=== PATIENT | female | born 1950 | race Caucasian/White ===

== ENCOUNTER 2022-11-12 12:14 | Outpatient (REF) | payer MEDICARE, MEDICAID, SELFPAY ==
[2022-11-12 14:35] LABS: Alanine Aminotransferase 23 U/L (14-59); Albumin Globulin Ratio 0.9; Albumin Level 3.6 g/dL (3.4-5.0); Alkaline Phosphatase 48 U/L (46-116); Anion Gap 13.2; Aspartate Amino Transferase 19 U/L (15-37); BUN Creatinine Ratio 16.7; Bilirubin Total 0.9 mg/dL (0.2-1.0); Calcium 9.5 mg/dL (8.5-10.1); Carbon Dioxide 29.5 mmol/L (21.0-32.0); Chloride 103 mmol/L (98-107); Estimated GFR (African America 24 (>=60); Estimated GFR (Non-African Ame 20 (>=60); Globulin 3.8 g/dL; Glucose 150 mg/dL (74-106); Potassium 4.7 mmol/L (3.5-5.1); Sodium 141 mmol/L (136-145); Total Protein 7.4 g/dL (6.4-8.2)
[2022-11-12 16:40] LABS: Estimated Average Glucose 163 mg/dL; Glycohemoglobin A1C 7.3 % (4.5-6.2)
== END 2022-11-12 12:15 | disposition home or self-care (01) ==
LOC: LAB 12:14
PROVIDERS: PCP Nurse Practitioner Primary Care; Visit Provider Nurse Practitioner Primary Care
DX: E11.9 Type 2 diabetes mellitus without complications (principal)
CPT/HCPCS: 36415; 80053; 83036

== ENCOUNTER 2022-11-28 01:52 | Outpatient (REF) | payer MEDICARE, MEDICAID, SELFPAY ==
[2022-11-28 10:29] LABS: Alanine Aminotransferase 22 U/L (14-59); Albumin Globulin Ratio 0.9; Albumin Level 3.2 g/dL (3.4-5.0); Alkaline Phosphatase 55 U/L (46-116); Anion Gap 5.9; Aspartate Amino Transferase 15 U/L (15-37); BUN Creatinine Ratio 16.9; Bilirubin Total 0.7 mg/dL (0.2-1.0); Calcium 9.2 mg/dL (8.5-10.1); Carbon Dioxide 34.5 mmol/L (21.0-32.0); Chloride 102 mmol/L (98-107); Estimated GFR (African America 34 (>=60); Estimated GFR (Non-African Ame 28 (>=60); Globulin 3.7 g/dL; Glucose 205 mg/dL (74-106); Potassium 4.4 mmol/L (3.5-5.1); Sodium 138 mmol/L (136-145); Total Protein 6.9 g/dL (6.4-8.2)
[2022-11-29 04:07] LABS: HBsAg Screen Negative (Negative); HCV Ab Non Reactive (Non Reactive); HIV Ab/p24 Ag Screen Non Reactive (Non Reactive); Hep A Ab, IgM Negative (Negative); Hep B Core Ab, IgM Negative (Negative)
== END 2022-11-28 01:53 | disposition home or self-care (01) ==
LOC: LAB 01:52
PROVIDERS: PCP Nurse Practitioner Primary Care; Visit Provider Nurse Practitioner Primary Care
DX: Z11.59 Encounter for screening for other viral diseases (principal); Z11.4 Encounter for screening for human immunodeficiency virus [HIV]; N18.30 Chronic kidney disease, stage 3 unspecified
CPT/HCPCS: 36415; 80053; 80074; 87389

== ENCOUNTER 2023-01-09 08:46 | Outpatient (OUT) | payer MEDICARE, MEDICAID, SELFPAY ==
--- NOTE | 2023-01-09 08:49 | US_ITS ---
The [address] [address] Patient Name: AVILA VALENZUELA MRN: [id number] date: 1950 Sex: F Assigned Patient Location: Current Patient Location: US Accession/Order Number: [id number] Exam Date: 01/09/2023 08:50 Report Date: 01/09/2023 17:47 At the request of: AFIA PERRY Procedure: US renal BI EXAMINATION: US renal BI HISTORY: Chronic Kidney Disease N18.4 COMPARISON: No relevant comparison available. TECHNIQUE: Ultrasound examination was performed of the bladder. FINDINGS: Right Kidney: Normal in size, contour and cortical echotexture with no solid cortical mass, hydronephrosis or obstructing nephrolithiasis. Areas of anechoic echogenicity measuring up to 1 cm, cortical cyst. The cortex measures 1.2 cm Height: 3.3 cm Length: 10.3 cm Width: 4.0 cm Left Kidney: Normal in size, contour and cortical echotexture with no solid cortical mass, hydronephrosis or obstructing nephrolithiasis. The cortex measures 1.5 cm area of anechoic echogenicity upper pole measuring 1 cm, simple cyst Height: 4.8 cm Length: 9.2 cm Width: 3.0 cm Urinary bladder is unremarkable with a volume of 62 mL The ureteral jets are not visualized US/US renal BI IMPRESSION: No acute abnormality Electronically authenticated by: TWYLA CONTEH Date: 01/09/2023 17:47
== END 2023-01-09 08:47 | disposition home or self-care (01) ==
LOC: US 08:46
PROVIDERS: PCP Nurse Practitioner Primary Care; Visit Provider Internal Medicine
DX: I12.9 Hypertensive chronic kidney disease with stage 1 through stage 4 chronic kidney disease, or unspecified chronic kidney disease (principal); N18.4 Chronic kidney disease, stage 4 (severe); E11.22 Type 2 diabetes mellitus with diabetic chronic kidney disease; N25.81 Secondary hyperparathyroidism of renal origin; D63.1 Anemia in chronic kidney disease
CPT/HCPCS: 76775

== ENCOUNTER 2023-02-18 01:09 | Outpatient (REF) | payer MEDICARE, MEDICAID, SELFPAY ==
[2023-02-18 09:26] LABS: Basophils Percent Auto 0.4 % (0.2-2.0); Eosinophils Absolute Auto 0.2 10^3/uL (0.0-0.7); Eosinophils Percent Auto 2.8 % (0.9-7.0); Hematocrit 30.8 % (36.0-48.0); Hemoglobin 9.9 g/dL (12.0-16.0); Immature Granulocytes Abs Auto 0.02 10^3/uL (0.00-0.03); Immature Granulocytes Pct Auto 0.3 % (0.0-0.5); Lymphocytes Percent Auto 25.2 % (20.5-60.0); Mean Corpuscular HGB Conc 32.1 g/dL (29.9-35.2); Mean Corpuscular Hemoglobin 30.4 pg (26.7-34.0); Mean Corpuscular Volume 94.5 fL (81.0-99.0); Mean Platelet Volume 11.4 fL (9.5-13.5); Monocytes Absolute Auto 0.7 10^3/uL (0.3-0.8); Monocytes Percent Auto 9.3 % (1.7-12.0); Neutrophils Absolute Auto 4.9 10^3/uL (1.4-6.5); Platelet Count 252 10^3/uL (150-450); Red Blood Count 3.26 10^6/uL (4.20-5.40); Red Cell Distribution Width 12.3 % (11.0-15.0); White Blood Count 7.9 10^3/uL (4.0-11.0)
[2023-02-18 10:25] LABS: Albumin Level 3.5 g/dL (3.4-5.0); Anion Gap 12.5; BUN Creatinine Ratio 29.3; Calcium 9.1 mg/dL (8.5-10.1); Chloride 104 mmol/L (98-107); Estimated GFR (African America 27 (>=60); Estimated GFR (Non-African Ame 22 (>=60); Glucose 129 mg/dL (74-106); Phosphorus 5.4 mg/dL (2.6-4.7); Potassium 4.5 mmol/L (3.5-5.1); Sodium 141 mmol/L (136-145); Uric Acid 8.4 mg/dL (2.6-6.0)
[2023-02-18 10:37] LABS: Creatinine Urine Random 70.68 mg/dL (20.00-300.00); Protein Creatinine Ratio Urine 0.11
[2023-02-18 10:41] LABS: Percent Iron Saturation 21.6 %
[2023-02-18 11:17] LABS: Bilirubin Urine NEGATIVE (NEGATIVE); Blood Urine NEGATIVE (NEGATIVE); Clarity Urine CLEAR (CLEAR); Color Urine LT. YELLOW (YELLOW); Glucose Urine UA NEGATIVE (NEGATIVE); Ketones Urine NEGATIVE (NEGATIVE); Leukocyte Esterase Urine NEGATIVE (NEGATIVE); Nitrite Urine NEGATIVE (NEGATIVE); Protein Urine NEGATIVE (NEG/TRACE); Urobilinogen Urine 0.2 EU/dL (0.2-1.0)
[2023-02-18 11:26] LABS: Bacteria Urine NONE SEEN #/HPF (NONE SEEN); Mucus Urine NONE SEEN (NONE SEEN); RBC Urine NONE SEEN #/HPF (0-2); Squamous Epithelial Cell Urine FEW #/LPF (NONE/RARE); WBC Urine NONE SEEN #/HPF (NONE SEEN)
[2023-02-19 11:09] LABS: PTH, Intact 56 pg/mL (15-65)
[2023-02-19 14:10] LABS: Free Lambda Lt Chains,S 35.2 mg/L (5.7-26.3); Immunoglobulin A, Qn, Serum 258 mg/dL (64-422); Immunoglobulin G, Qn, Serum 1086 mg/dL (586-1602); Immunoglobulin M, Qn, Serum 52 mg/dL (26-217)
[2023-02-19 16:09] LABS: Albumin 3.3 g/dL (2.9-4.4); Alpha-1-Globulin 0.2 g/dL (0.0-0.4); Gamma Globulin 1.1 g/dL (0.4-1.8); Protein, Total 6.5 g/dL (6.0-8.5)
== END 2023-02-18 01:10 | disposition home or self-care (01) ==
LOC: LAB 01:09
PROVIDERS: PCP Nurse Practitioner Primary Care; Visit Provider Internal Medicine
DX: E11.22 Type 2 diabetes mellitus with diabetic chronic kidney disease (principal); N18.4 Chronic kidney disease, stage 4 (severe); I12.9 Hypertensive chronic kidney disease with stage 1 through stage 4 chronic kidney disease, or unspecified chronic kidney disease; N25.81 Secondary hyperparathyroidism of renal origin; D63.1 Anemia in chronic kidney disease
CPT/HCPCS: 36415; 80053; 80069; 81001; 82306; 82570; 82607; 82728; 82746; 82784; 83036; 83521; 83540; 83550; 83735; 83970; 84155; 84156; 84165; 84166; 84550; 85025; 86334; 86335

== ENCOUNTER 2023-02-18 01:14 | Outpatient (REF) | payer MEDICARE, MEDICAID, SELFPAY ==
[2023-02-18 10:08] LABS: Estimated Average Glucose 143 mg/dL; Glycohemoglobin A1C 6.6 % (4.5-6.2)
[2023-02-18 10:09] LABS: Alanine Aminotransferase 16 U/L (14-59); Albumin Level 3.5 g/dL (3.4-5.0); Alkaline Phosphatase 58 U/L (46-116); Anion Gap 12.8; Aspartate Amino Transferase 18 U/L (15-37); BUN Creatinine Ratio 29.4; Bilirubin Total 0.6 mg/dL (0.2-1.0); Calcium 9.2 mg/dL (8.5-10.1); Carbon Dioxide 28.9 mmol/L (21.0-32.0); Chloride 102 mmol/L (98-107); Estimated GFR (African America 27 (>=60); Estimated GFR (Non-African Ame 23 (>=60); Globulin 3.6 g/dL; Glucose 131 mg/dL (74-106); Potassium 4.7 mmol/L (3.5-5.1); Sodium 139 mmol/L (136-145); Total Protein 7.1 g/dL (6.4-8.2)
== END 2023-02-18 01:15 | disposition home or self-care (01) ==
LOC: LAB 01:14
PROVIDERS: PCP Nurse Practitioner Primary Care; Visit Provider Nurse Practitioner Primary Care
DX: E11.9 Type 2 diabetes mellitus without complications (principal)
CPT/HCPCS: 36415; 80053; 83036

== ENCOUNTER 2023-02-19 13:15 | Outpatient (REF) | payer MEDICARE, MEDICAID, SELFPAY ==
[2023-02-24 15:09] LABS: Albumin, U 14.8 % (.); Alpha-1-Globulin, U 4.3 % (.); Alpha-2-Globulin, U 18.3 % (.); Beta Globulin, U 32.5 % (.); M-Spike, % Not Observed % (Not Observed); Protein,Total,Urine 6.8 mg/dL (Not Estab.)
== END 2023-02-19 13:16 | disposition home or self-care (01) ==
LOC: LAB 13:15
PROVIDERS: PCP Nurse Practitioner Primary Care; Visit Provider Internal Medicine
DX: E11.22 Type 2 diabetes mellitus with diabetic chronic kidney disease (principal); I12.9 Hypertensive chronic kidney disease with stage 1 through stage 4 chronic kidney disease, or unspecified chronic kidney disease; N18.4 Chronic kidney disease, stage 4 (severe); N25.81 Secondary hyperparathyroidism of renal origin; D63.1 Anemia in chronic kidney disease
CPT/HCPCS: 84156; 84166; 86335

== ENCOUNTER 2023-03-04 09:11 | Outpatient (OUT) | payer MEDICARE, MEDICAID, SELFPAY ==
--- NOTE | 2023-03-04 09:22 | MM_ITS ---
Patient Name AVILA VALENZUELA MR# Age Sex Date Time [id number] F 03/04/2023 09:40 At the Request Of DARRION ARMSTRONG RADIOLOGY REPORT PROCEDURE: MM TOMOSYNTHESIS SCREENING BI COMPARISON: MG MAMM SCREEN 3D BARBARA CAD, 06/03/2021. MG MAMM BARBARA DIAG W CAD, 04/11/2020. MG MAMM SCREEN BARBARA W CAD, 03/07/2019. INDICATIONS: Screening Calculator Name NCI Breast Cancer Risk Assessment Tool 5 Year Breast Cancer Risk 1.20% Lifetime Breast Cancer Risk 2.70% Personal Breast Cancer No Personal Ovarian Cancer No Treatments None Family Cancers Grandmother-paternal with breast cancer at age 50. LOCATION: [facility] BREAST COMPOSITION: Heterogeneously dense,which may obscure small masses. FINDINGS: DIAGNOSTIC CATEGORY 2--BENIGN FINDING: Scattered benign-appearing calcifications are present. Scattered benign-appearing lymph nodes are present. No significant change has occurred. LEFT BREAST: No significant suspicious finding. Scattered benign-appearing calcifications are present. Scattered benign-appearing lymph nodes are present. No significant change has occurred. RECOMMENDATIONS: ROUTINE MAMMOGRAM AND CLINICAL EVALUATION IN 12 MONTHS. PLEASE NOTE: A NORMAL MAMMOGRAM DOES NOT EXCLUDE THE POSSIBILITY OF BREAST CANCER. A CLINICALLY SUSPICIOUS PALPABLE LUMP SHOULD BE BIOPSIED. Dictated by: Savage Stephens M.D. on 03/04/2023 at 12:43 Approved by: Savage Stephens M.D. on 03/04/2023 at 13:14
== END 2023-03-04 09:12 | disposition home or self-care (01) ==
LOC: MAMMO 09:12
PROVIDERS: PCP Nurse Practitioner Primary Care; Visit Provider Nurse Practitioner Primary Care
DX: Z12.31 Encounter for screening mammogram for malignant neoplasm of breast (principal); Z80.3 Family history of malignant neoplasm of breast
CPT/HCPCS: 77063; 77067

== ENCOUNTER 2023-03-18 09:57 | Outpatient (OUT) | payer MEDICARE, MEDICAID, SELFPAY ==
--- NOTE | 2023-03-18 | XR_ITS ---
The [address] [address] Patient Name: AVILA VALENZUELA MRN: [id number] date: 1950 Sex: F Assigned Patient Location: [facility] Current Patient Location: Accession/Order Number: [id number] Exam Date: 03/18/2023 10:40 Report Date: 03/20/2023 08:14 At the request of: EMMANUELLE PATE Procedure: XR foot LT min 3V PROCEDURE: XR foot LT min 3V HISTORY: LEFT FOOT PAIN COMPARISON: XR foot left 08/01/2021 FINDINGS: BONES:Acute nondisplaced fracture involving base of third proximal phalanx with intra-articular extension. Stable remote fracture of base of 5th proximal phalanx. Prior mechanical fusion of the talocalcaneal joint, degenerative changes, and complete loss of plantar arch. SOFT TISSUES:No visible soft tissue swelling. EFFUSION:None visible. OTHER: Negative. XR/XR foot LT min 3V IMPRESSION: 1. Acute versus subacute nondisplaced fracture involving base of third proximal phalanx. 2. Stable chronic changes and surgical changes. Electronically authenticated by: ROGER ABARCA Date: 03/20/2023 08:14
== END 2023-03-18 09:58 | disposition home or self-care (01) ==
LOC: RAD 09:59
PROVIDERS: PCP Nurse Practitioner Primary Care; Visit Provider Podiatrist Foot & Ankle Surgery
DX: M79.672 Pain in left foot (principal); S92.515A Nondisplaced fracture of proximal phalanx of left lesser toe(s), initial encounter for closed fracture
CPT/HCPCS: 73630

== ENCOUNTER 2023-03-31 15:35 | Emergency (ER) | payer MEDICARE, MEDICAID, SELFPAY ==
[2023-03-31 15:36] VITALS: BP 115/60; PULSE 81; RESP 20; TEMP 36.6; O2SAT 96; BMI 33.2
--- NOTE | 2023-03-31 15:41 | ED.GENADUL1 ---
HPI - General Adult General Chief complaint: Urogenital-Female Stated complaint: UTI, Pelvic Pain Time Seen by Provider: 03/31/23 15:36 Source: patient Mode of arrival: ambulance Limitations: no limitations History of Present Illness HPI narrative: Patient is a 73-year-old female who presents to the emergency department for UTI symptoms that began 2 days ago. Patient lives at assisted living, she requested that the staff call 911 to bring her to the emergency department today and staff states that they offered to run her urine specimen but it would not be until tomorrow and the patient was not willing to wait. She states she is having too much discomfort in the suprapubic abdomen. She has had no fevers, chills, nausea, vomiting, diarrhea. She states she has not had a UTI in a long time . She denies any other focal medical complaints. She wears an adult diaper as she has a history of urinary incontinence. Related Data Home Medications Medication Instructions Recorded Confirmed acetaminophen 325 mg tablet 650 mg PO Q4H PRN fever or pain 03/31/23 03/31/23 albuterol sulfate 90 mcg/actuation 1 inh inhalation BID PRN shortness 03/31/23 03/31/23 aerosol inhaler of breath or wheezing alendronate 70 mg tablet 70 mg PO .weekly 03/31/23 03/31/23 ascorbic acid (vitamin C) 250 mg 250 mg PO BID 03/31/23 03/31/23 chewable tablet aspirin 81 mg chewable tablet 81 mg PO DAILY 03/31/23 03/31/23 brexpiprazole 0.25 mg tablet 0.25 mg PO DAILY 03/31/23 03/31/23 (Rexulti) cholecalciferol (vitamin D3) 1,250 50,000 unit PO .weekly 03/31/23 03/31/23 mcg (50,000 unit) capsule cyanocobalamin (vitamin B-12) 1,000 mcg PO DAILY 03/31/23 03/31/23 1,000 mcg tablet ferrous sulfate 325 mg (65 mg 325 mg PO DAILY 03/31/23 03/31/23 iron) tablet furosemide 20 mg tablet 20 mg PO DAILY 03/31/23 03/31/23 hydroxyzine pamoate 50 mg capsule 50 mg PO .qhs PRN anxiety 03/31/23 03/31/23 lisinopril 20 1 tab PO DAILY 03/31/23 03/31/23 mg-hydrochlorothiazide 12.5 mg tablet magnesium oxide 400 mg (241.3 mg 400 mg PO DAILY 03/31/23 03/31/23 magnesium) tablet monjaro 0.5 ml subcut .weekly 03/31/23 03/31/23 ondansetron 4 mg disintegrating 4 mg PO Q4H 03/31/23 03/31/23 tablet pantoprazole 20 mg tablet,delayed 20 mg PO DAILY 03/31/23 03/31/23 release potassium chloride 20 mEq 20 meq PO DAILY 03/31/23 03/31/23 tablet,extended release(part/cryst) rosuvastatin 5 mg tablet 5 mg PO DAILY 03/31/23 03/31/23 Previous Rx's Medication Instructions Recorded cephalexin 500 mg capsule 500 mg PO Q8H 7 days #21 caps 03/31/23 ondansetron 4 mg disintegrating 4 mg PO Q6H PRN nausea and 03/31/23 tablet vomiting #12 tabs phenazopyridine 200 mg tablet 200 mg PO Q8H 2 days #6 tabs 03/31/23 (Pyridium) Allergies Allergy/AdvReac Type Severity Reaction Status Date / Time No Known Drug Allergies Allergy Verified 03/31/23 15:36 Review of Systems ROS Constitutional Denies: fever or chills Ears, nose, mouth, and throat Denies: throat pain Cardiovascular Denies: chest pain Gastrointestinal Reports: abdominal pain; Denies: nausea, vomiting or diarrhea Genitourinary Reports: painful urination and urinary frequency Musculoskeletal Denies: back pain Integumentary/Breast Denies: rash Neurological Denies: headache Exam Narrative Exam Narrative: Gen.: Awake, alert, in no distress Head: Normocephalic, atraumatic ENT: Moist mucous membranes Respiratory: No respiratory distress, lungs clear bilaterally Cardio: Regular rate and rhythm Gastrointestinal: Abdomen is soft, nondistended and mildly tender to palpation in the suprapubic abdomen with no guarding or rebound Extremities: Moves extremities equally Psych: Normal mood and affect Neuro: No focal neuro deficit, patient is alert and oriented to person, place, time and answers all questions appropriately. Skin: Warm, dry, intact Constitutional Vital Signs, click to edit/add: Last Vital Signs Temp 97.9 F 03/31/23 15:36 Pulse 77 03/31/23 16:33 Resp 20 03/31/23 15:36 BP 120/61 03/31/23 16:33 Pulse Ox 95 03/31/23 16:33 O2 Del Method Room Air 03/31/23 15:36 Course Vital Signs Vital signs: Vital Signs Temperature 97.9 F 03/31/23 15:36 Pulse Rate 81 03/31/23 15:36 Respiratory Rate 20 03/31/23 15:36 Blood Pressure 115/60 03/31/23 15:36 Pulse Oximetry 96 03/31/23 15:36 Oxygen Delivery Method Room Air 03/31/23 15:36 Temperature 97.9 F 03/31/23 15:36 Pulse Rate 77 03/31/23 16:33 Respiratory Rate 20 03/31/23 15:36 Blood Pressure 120/61 03/31/23 16:33 Pulse Oximetry 95 03/31/23 16:33 Oxygen Delivery Method Room Air 03/31/23 15:36 Medical Decision Making MDM Narrative Medical decision making narrative: Lab studies show minimal leukocytosis, no bandemia. Patient with stable vital signs in the ER. Abdomen is soft and benign. Creatinine is improved from previous. Urine specimen shows a mild urinary tract infection, CT was performed due to the patient's abdominal pain and age, this shows she has cystitis, and she will be treated with Keflex, Zofran for home. Follow-up with PCP and return to the ER if symptoms change or worsen. Medical Records Medical records reviewed: Yes I reviewed the patient's medical records Lab Data Lab results reviewed: Yes I reviewed the patient's lab results Labs: Lab Results 03/31/23 03/31/23 Range/Units 15:47 15:54 WBC 12.2 H (4.0-11.0) 10^3/uL RBC 3.24 L (4.20-5.40) 10^6/uL Hgb 9.7 L (12.0-16.0) g/dL Hct 31.4 L (36.0-48.0) % MCV 96.9 (81.0-99.0) fL MCH 29.9 (26.7-34.0) pg MCHC 30.9 (29.9-35.2) g/dL RDW 13.0 (11.0-15.0) % Plt Count 297 (150-450) 10^3/uL MPV 10.6 (9.5-13.5) fL Neut % (Auto) 75.4 H (43.0-75.0) % Lymph % (Auto) 15.1 L (20.5-60.0) % Evangeline % (Auto) 8.1 (1.7-12.0) % Eos % (Auto) 0.9 (0.9-7.0) % Baso % (Auto) 0.3 (0.2-2.0) % Neut # (Auto) 9.2 H (1.4-6.5) 10^3/uL Lymph # (Auto) 1.8 (1.2-3.8) 10^3/uL Evangeline # (Auto) 1.0 H (0.3-0.8) 10^3/uL Eos # (Auto) 0.1 (0.0-0.7) 10^3/uL Baso # (Auto) 0.0 (0.0-0.1) 10^3/uL Abs Immat Gran (auto) 0.02 (0.00-0.03) 10^3/uL Imm/Tot Granulo (auto) 0.2 (0.0-0.5) % Sodium 139 (136-145) mmol/L Potassium 4.4 (3.5-5.1) mmol/L Chloride 102 (98-107) mmol/L Carbon Dioxide 29.7 (21.0-32.0) mmol/L Anion Gap 11.7 BUN 41.0 H (7.0-18.0) mg/dL Creatinine 1.91 H (0.55-1.02) mg/dL Est GFR ( Amer) 31 L (>=60) Est GFR (Non-Af Amer) 26 L (>=60) BUN/Creatinine Ratio 21.5 Glucose 130 H (74-106) mg/dL Calcium 9.4 (8.5-10.1) mg/dL Urine Color Lt. yellow (YELLOW) Urine Clarity Clear (CLEAR) Urine pH 6.0 (5.0-9.0) Ur Specific [place] 1.015 (1.005-1.025) Urine Protein 100 A (NEG/TRACE) mg/dL Urine Glucose (UA) Negative (NEGATIVE) mg/dL Urine Ketones Negative (NEGATIVE) mg/dL Urine Occult Blood Negative (NEGATIVE) Urine Nitrite Negative (NEGATIVE) Urine Bilirubin Negative (NEGATIVE) Urine Urobilinogen 0.2 (0.2-1.0) EU/dL Ur Leukocyte Esterase Trace A (NEGATIVE) Urine RBC 0-2 (0-2) #/HPF Urine WBC 10-20 A (NONE SEEN) #/HPF Ur Squamous Epith Cells Few A (NONE/RARE) #/LPF Urine Crystals None seen (None Seen) #/HPF Urine Bacteria Trace A (NONE SEEN) #/HPF Urine Casts None seen (NONE SEEN) #/LPF Urine Mucus None seen (NONE SEEN) Ur Culture Indicated? Yes Imaging Data CT scan - abdomen: Attestation: I have reviewed the pertinent imaging results. Radiologist's impression: Procedure: CT abdomen pelvis wo con EXAM: CT scan of the abdomen and pelvis without contrast. Dose reduction technique used: Automated exposure control and/or adjustment of the mA and/or kV according to patient size and/or use of iterative reconstruction technique. REASON FOR EXAM: Pelvic pain COMPARISON: None FINDINGS: Mild right hydroureteronephrosis. Suggestion of associated right ureteral urothelial thickening and surrounding fat stranding and fluid. Diffuse bladder wall thickening. Colonic diverticulosis. Small amount of opacities in the lingula are favored to be due to scarring and/or atelectasis. No renal, ureteral or bladder calculi. Normal appendix. No free fluid in the abdomen or pelvis. No free intraperitoneal air. No dilated or thickened loops of small bowel or colon. Liver, pancreas, spleen, bilateral kidneys, and bilateral adrenal glands are otherwise unremarkable within the limitations of noncontrast CT. No lymphadenopathy in the abdomen or pelvis. Remainder unremarkable. IMPRESSION: Findings may represent a recently passed right ureteral stone versus cystitis with right-sided ascending urinary tract infection. Electronically authenticated by: ANNABELLA PATEL Date: 03/31/2023 17:22 Discharge Plan Discharge Chief Complaint: Urogenital-Female Clinical Impression: Urinary tract infection, Cystitis Patient Disposition: Home, Self-Care Time of Disposition Decision: 17:36 Condition: Good Prescriptions / Home Meds: New cephalexin 500 mg capsule 500 mg PO Q8H 7 Days Qty: 21 0RF phenazopyridine [Pyridium] 200 mg tablet 200 mg PO Q8H 2 Days Qty: 6 0RF ondansetron 4 mg tablet,disintegrating 4 mg PO Q6H PRN (Reason: nausea and vomiting) Qty: 12 0RF No Action acetaminophen 325 mg tablet 650 mg PO Q4H PRN (Reason: fever or pain) albuterol sulfate 90 mcg/actuation HFA aerosol inhaler 1 inh inhalation BID PRN (Reason: shortness of breath or wheezing) alendronate 70 mg tablet 70 mg PO .weekly ascorbic acid (vitamin C) 250 mg tablet,chewable 250 mg PO BID aspirin 81 mg tablet,chewable 81 mg PO DAILY cyanocobalamin (vitamin B-12) 1,000 mcg tablet 1,000 mcg PO DAILY Rx Instructions: takes three times weekly on Thursday, Thursday and Thursday ferrous sulfate 325 mg (65 mg iron) tablet 325 mg PO DAILY furosemide 20 mg tablet 20 mg PO DAILY lisinopril-hydrochlorothiazide 20-12.5 mg tablet 1 tab PO DAILY magnesium oxide 400 mg (241.3 mg magnesium) tablet 400 mg PO DAILY hydroxyzine pamoate 50 mg capsule 50 mg PO .qhs PRN (Reason: anxiety) pantoprazole 20 mg tablet,delayed release (DR/EC) 20 mg PO DAILY rosuvastatin 5 mg tablet 5 mg PO DAILY potassium chloride 20 mEq tablet,ER particles/crystals 20 meq PO DAILY cholecalciferol (vitamin D3) 1,250 mcg (50,000 unit) capsule 50,000 unit PO .weekly ondansetron 4 mg tablet,disintegrating 4 mg PO Q4H Rx Instructions: give 1st dose 30min before emetogenic chemo monjaro 0.5 ml subcut .weekly Rexulti 0.25 mg tablet 0.25 mg PO DAILY Instructions: Urinary Tract Infection in Older Adults (ED) Stand Alone Forms: Portal Instructions Referrals: DARRION ARMSTRONG APRN [Primary Care Provider] - 1 week
[2023-03-31] MEDS: PHENAZOPYRIDINE 100 MG TABLET 200 MG PO (16:00)
[2023-03-31 16:07] LABS: Basophils Percent Auto 0.3 % (0.2-2.0); Eosinophils Absolute Auto 0.1 10^3/uL (0.0-0.7); Eosinophils Percent Auto 0.9 % (0.9-7.0); Hematocrit 31.4 % (36.0-48.0); Hemoglobin 9.7 g/dL (12.0-16.0); Immature Granulocytes Abs Auto 0.02 10^3/uL (0.00-0.03); Immature Granulocytes Pct Auto 0.2 % (0.0-0.5); Lymphocytes Absolute Auto 1.8 10^3/uL (1.2-3.8); Lymphocytes Percent Auto 15.1 % (20.5-60.0); Mean Corpuscular HGB Conc 30.9 g/dL (29.9-35.2); Mean Corpuscular Hemoglobin 29.9 pg (26.7-34.0); Mean Corpuscular Volume 96.9 fL (81.0-99.0); Mean Platelet Volume 10.6 fL (9.5-13.5); Monocytes Percent Auto 8.1 % (1.7-12.0); Neutrophils Absolute Auto 9.2 10^3/uL (1.4-6.5); Neutrophils Percent Auto 75.4 % (43.0-75.0); Platelet Count 297 10^3/uL (150-450); Red Blood Count 3.24 10^6/uL (4.20-5.40); White Blood Count 12.2 10^3/uL (4.0-11.0)
[2023-03-31 16:20] LABS: Anion Gap 11.7; BUN Creatinine Ratio 21.5; Calcium 9.4 mg/dL (8.5-10.1); Carbon Dioxide 29.7 mmol/L (21.0-32.0); Chloride 102 mmol/L (98-107); Estimated GFR (African America 31 (>=60); Estimated GFR (Non-African Ame 26 (>=60); Glucose 130 mg/dL (74-106); Potassium 4.4 mmol/L (3.5-5.1); Sodium 139 mmol/L (136-145)
[2023-03-31 16:26] LABS: Bilirubin Urine NEGATIVE (NEGATIVE); Blood Urine NEGATIVE (NEGATIVE); Clarity Urine CLEAR (CLEAR); Color Urine LT. YELLOW (YELLOW); Glucose Urine UA NEGATIVE (NEGATIVE); Ketones Urine NEGATIVE (NEGATIVE); Leukocyte Esterase Urine TRACE (NEGATIVE); Nitrite Urine NEGATIVE (NEGATIVE); Protein Urine 100 mg/dL (NEG/TRACE); Specific Gravity Urine 1.015 (1.005-1.025); Urobilinogen Urine 0.2 EU/dL (0.2-1.0)
[2023-03-31 16:30] LABS: Urine Microscopic Indicated YES
[2023-03-31 16:33] VITALS: BP 120/61; PULSE 77; O2SAT 95
[2023-03-31 16:43] LABS: Bacteria Urine TRACE #/HPF (NONE SEEN); Cast Seen? NONE SEEN #/LPF (NONE SEEN); Crystals Seen? None Seen #/HPF (None Seen); Mucus Urine NONE SEEN (NONE SEEN); RBC Urine 0-2 #/HPF (0-2); Squamous Epithelial Cell Urine FEW #/LPF (NONE/RARE); Urine Culture Indicated YES
--- NOTE | 2023-03-31 16:53 | CT_ITS ---
The [place] [id number] Patient Name: AVILA VALENZUELA MRN: [facility]:[id number] date: 1950 Sex: F Assigned Patient Location: ED.MAIN Current Patient Location: ED.MAIN Accession/Order Number: [id number] Exam Date: 03/31/2023 16:48 Report Date: 03/31/2023 17:22 At the request of: JAMES RAMIREZ Procedure: CT abdomen pelvis wo con EXAM: CT scan of the abdomen and pelvis without contrast. Dose reduction technique used: Automated exposure control and/or adjustment of the mA and/or kV according to patient size and/or use of iterative reconstruction technique. REASON FOR EXAM: Pelvic pain COMPARISON: None FINDINGS: Mild right hydroureteronephrosis. Suggestion of associated right ureteral urothelial thickening and surrounding fat stranding and fluid. Diffuse bladder wall thickening. Colonic diverticulosis. Small amount of opacities in the lingula are favored to be due to scarring and/or atelectasis. No renal, ureteral or bladder calculi. Normal appendix. No free fluid in the abdomen or pelvis. No free intraperitoneal air. No dilated or thickened loops of small bowel or colon. Liver, pancreas, spleen, bilateral kidneys, and bilateral adrenal glands are otherwise unremarkable within the limitations of noncontrast CT. No lymphadenopathy in the abdomen or pelvis. Remainder unremarkable. CT/CT abdomen pelvis wo con IMPRESSION: Findings may represent a recently passed right ureteral stone versus cystitis with right-sided ascending urinary tract infection. Electronically authenticated by: ANNABELLA PATEL Date: 03/31/2023 17:22
[2023-03-31 18:31] VITALS: BP 112/77; PULSE 83; O2SAT 95
--- OUTSIDE RECORDS SUMMARY | 2023-04-15 01:27 | XMS_ITS | CCD ---
Author Name Unknown Address [address] [facility] [id number] [place] [address] Organization [facility] Care Team Providers Care Manufacturing Lead Name Role Phone SHAMMO, DARRION Primary Care Unavailable SHAMMO, DARRION Admitting Unavailable SHAMMO, DARRION Attending Unavailable WEST, DR TWYLA Mensah Consulting Unavailable SHAMMO, DARRION Consulting Unavailable REINECK, DR JENIFER Carreno Attending Unavailabl e REINECK, DR JENIFER Carreno Consulting Unavailabl e REINECK, DR JENIFER Carreno Admitting Unavailabl e SHAMMO, DARRION Primary Care Unavailable SHAMMO, DARRION Primary Care Unavailable SHAMMO, DARRION Admitting Unavailable SHAMMO, DARRION Attending Unavailable SHAMMO, DARRION Consulting Unavailable SHAMMO, DARRION Primary Care Unavailable SHAMMO, DARRION Admitting Unavailable SHAMMO, DARRION Attending Unavailable SHAMMO, DARRION Primary Care Unavailable SHAMMO, DARRION Admitting Unavailable SHAMMO, DARRION Attending Unavailable SHAMMO, DARRION Consulting Unavailable Afia Lorenzo Unavailable KD OZUNA Attending Unavailab MD AFIA Huynh Referring Unavailable Medications Current Medications Medication Drug Class(es) Dates Sig (Normalized) Sig (Original) 0.5 ML tirzepatide 10 MG/ML Auto-Injector [Mounjaro] (2 sources) Mounjaro 5 MG/0. 5ML as directed Subcutaneous ONCE A WEEK Active acetaminophen 325 mg oral tablet (3 sources) take 1 tablet by mouth every four hours Acetaminophen 325 MG 1 tablet as needed Orally every 4 hrs Active albuterol 0.83 mg/ml inhalation solution (6 sources) beta2-Adrenergic Agonist Albuterol Sulfate (2.5 MG/3ML) 0.083% 3 mL as needed Inhalation every 6 hrs Active take 2 puff(s) by in halation every four hours as needed Albuterol Sulfate HFA 108 (90 Base) MCG/ACT 2 puff as needed Inhalation every 4 hrs Active Albuterol Sulfat e (2.5 MG/3ML) 0.083% 3 mL as needed Inhalation every 6 hrs Active take 2 puff(s) by in halation every four hours as needed Albuterol Sulfate HFA 108 (90 Base) MCG/ACT 2 puff as needed Inhalation every 4 hrs Active take 2 puff(s) by in halation every four hours as needed Albuterol Sulfate HFA 108 (90 Base) MCG/ACT 2 puff as needed Inhalation every 4 hrs Active alendronic acid 70 mg oral tablet (3 sources) Bisphosphonate take 1 tablet by mouth once daily Alendronate Sodium 70 MG 1 tablet 30 minutes before the first food, beverage or medicine of the day with plain water Orally Active ascorbic acid 250 mg chewable tablet (2 sources) Vitamin C take 1 tablet by mouth every twelve hours Vitamin C 250 MG 1 tablet Orally TWICE A DAY Active aspirin 81 mg delayed release oral tablet (3 sources) Platelet Aggregation Inhibitor, Nonsteroidal Anti-inflammatory Drug take 1 tablet by mouth every twenty-four hours Aspirin 81 81 MG 1 tablet Orally Once a day Active ergocalciferol 1.25 mg oral capsule (3 sources) Provitamin D2 Compound take 1 capsule by mouth every week Vitamin D (Ergocalciferol) 1.25 MG (34237 UT) 1 capsule Orally ONCE A WEEK Active ferrous sulfate 325 mg oral tablet (3 sources) take 1 tablet by mouth every twenty-four hours Ferrous Sulfate 325 (65 Fe) MG 1 tablet Orally ONCE A DAY Active take 1 tablet by mouth once fernandez y Ferrous Sulfate 325 (65 Fe) MG 1 tablet Orally ONCE A DAY Active furosemide 20 mg oral tablet (3 sources) Loop Diuretic take 1 tablet by mouth every twenty-four hours Furosemide 20 MG 1 tablet Orally Once a day Active hydroCHLOROthiazide 12.5 mg / lisinopril 20 mg oral tablet (3 sources) Thiazide Diuretic, Angiotensin Converting Enzyme Inhibitor take 1 tablet by mouth every twenty-four hours Lisinopril-hydroCH LOROthiazide 20-12.5 MG 1 tablet Orally Once a day Active take 1 tablet by once daily Lisinopril-hydroCHLOROthiazide 20-12.5 M G 1 tablet Orally Once a day Active Magnesium (3 sources) take 1 tablet by once daily Magnesium 400 MG 1 tablet with a meal Orally Once a day Active Magnesium 400 MG as directed Orally Active mounjaro 5 mg/0.5ml solution pen-injector (1 source) Mounjaro 5 MG/0. 5ML as directed Subcutaneous ONCE A WEEK Active ondansetron 4 mg disintegrating oral tablet (3 sources) Serotonin-3 Receptor Antagonist take 1 tablet by mouth every four hours as needed Ondansetron 4 MG 1 tablet on the tongue and allow to dissolve Orally EVERY 4 HOURS NEEDED Active pantoprazole 20 mg delayed release oral tablet (3 sources) Proton Pump Inhibitor take 1 tablet by mouth every twenty-four hours Pantoprazole Sodium 20 MG 1 tablet Orally Once a day Active potassium chloride 20 meq extended release oral tablet (3 sources) take 1 tablet by mouth every twenty-four hours Potassium Chloride ER 20 MEQ 1 tablet with food Orally Once a day Active rosuvastatin calcium 5 mg oral tablet (3 sources) HMG-CoA Reductase Inhibitor take 1 tablet by mouth every twenty-four hours Rosuvastatin Calcium 5 MG 1 tablet Orally Once a day Active vitamin b12 1 mg extended release oral tablet (1 source) Vitamin B12 take 1 tablet by mouth three times weekly Vitamin B12 1000 MCG 1 tablet Orally THREE TIMES A WEEK Active Vitamin B12 1000 MCG (2 sources) take 1 tablet by mouth three times weekly Vitamin B12 1000 MCG 1 tablet Orally THREE TIMES A WEEK Active Vitamin C 250 MG (1 source) take 1 tablet by mouth twice daily Vitamin C 250 MG 1 tablet Orally TWICE A DAY Active Problems Problem Classification Problem Date Documented Date Episodic/Chronic Chronic kidney disease (5 sources) Chronic kidney disease stage 4; Translations: [Chronic kidney disease, stage 4 (severe)] Chronic Congestive heart failure; nonhypertensive (1 source) Chronic combined systolic (congestive) and diastolic (congestive) heart failure; Translations: [CHRON COMB SYSTOLIC AND DIASTOLIC CHF] Onset: 3 Chronic Deficiency and other anemia (3 sources) Anemia of renal disease; Translations: [Anemia in chronic kidney disease] Chronic Deficiency and other anemia (2 sources) Anemia in chronic kidney disease Chronic Diabetes mellitus with complications (5 sources) Disorder of kidney due to diabetes mellitus; Translations: [Type 2 diabetes mellitus with diabetic chronic kidney disease] Chronic Diabetes mellitus without complication (5 sources) Type 2 diabetes mellitus without complications; Translations: [TYPE 2 DM WITHOUT COMPLICATIONS] Onset: 3 Chronic Disorders of lipid metabolism (1 source) Hyperlipidemia, unspecified; Translations: [HYPERLIPIDEMIA UNSPECIFIED] Onset: 3 Chronic Essential hypertension (4 sources) Essential (primary) hypertension; Translations: [ESSENTIAL PRIMARY HYPERTENSION] Onset: 3 Chronic Genitourinary symptoms and ill-defined conditions (3 sources) Urinary incontinence; Translations: [Unspecified urinary incontinence] Chronic Hypertension with complications and secondary hypertension (6 sources) Hypertensive heart disease with heart failure; Translations: [Chronic kidney disease due to hypertension] Onset: 3 Chronic Other aftercare (1 source) penitentiary (current) use of oral hypoglycemic drugs; Translations: [AERIAL PHOTOGRAMMETRIST USE ORAL HYPOGLYCEMIC DX] Onset: 3 Episodic Other aftercare (1 source) Other senior care (current) drug therapy; Translations: [OTH AERIAL PHOTOGRAMMETRIST CURRENT DRUG THERAPY] Onset: 3 Episodic Other diseases of kidney and ureters (3 sources) Secondary hyperparathyroidism; Translations: [Secondary hyperparathyroidism of renal origin] Chronic Other diseases of kidney and ureters (2 sources) Secondary hyperparathyroidism of renal origin Chronic Other lower respiratory disease (4 sources) Hypoxemia; Translations: [HYPOXEMIA] Onset: 3 Episodic Other nutritional; endocrine; and metabolic disorders (1 source) Hyperuricemia without signs of inflammatory arthritis and tophaceous disease Episodic Other screening for suspected conditions (not mental disorders or infectious disease) (1 source) Encounter for observation for other suspected diseases and conditions ruled out; Translations: [ENC OBS OTH SUSP DZ COND RULED OUT] Onset: 3 Episodic Schizophrenia and other psychotic disorders (2 sources) Schizoaffective disorder, bipolar type; Translations: [Schizoaffective disorder. bipolar type] Onset: 2 Chronic Thyroid disorders (1 source) Hypothyroidism, unspecified; Translations: [HYPOTHYROIDISM UNSPECIFIED] Onset: 3 Chronic Results Test Name Value Interpretation Reference Range Facil ity GLYCOHEMOGLOBIN A1Con 2022 ADA RECOMMENDATION SEE BELOW Normal [facility] Comment on above: Result Comment: ADA RECOMMENDED LIMIT 4.0 - 6.0 ADA THERAPEUTIC TARGET < 7.0 ACTION SUGGESTED > 7.0 Performed By: #### A 1C #### [facility] [address] [place] [address] Dr. Vanessa Denis Glucose [Mass/Vol] 223 mg/dL Normal [facility] Comment on above: Performed By: #### A 1C #### [facility] [address] [place] [address] Dr. Vanessa Denis HbA1c (Bld) [Mass fraction] 9.4 % Critically high 4.5 -6.2 [facility] Comment on above: Performed By: #### A 1C #### [facility] [address] [place] [address] Dr. Vanessa Denis PROF 14(COMP METB)on 023 Albumin [Mass/Vol] 3.4 g/dL Normal 3.4-5.0 [facility] Comment on above: Performed By: #### C MP #### [facility] [address] [place] [address] Dr. Vanessa Denis Albumin/Globulin [Mass ratio] 0.8 {ratio} Normal [facility] Comment on above: Performed By: #### C MP #### [facility] [address] [place] [address] Dr. Vanessa Denis ALP [Catalytic activity/Vol] 71 U/L Normal 46-116 [facility] Comment on above: Performed By: #### C MP #### [facility] [address] [place] [address] Dr. Vanessa Denis ALT [Catalytic activity/Vol] 25 U/L Normal 14-59 [facility] Comment on above: Performed By: #### C MP #### [facility] [address] [place] [address] Dr. Vanessa Denis Anion gap [Moles/Vol] 6.7 mmol/L Normal [facility] Comment on above: Performed By: #### C MP #### [facility] [address] [place] [address] Dr. Vanessa Denis AST [Catalytic activity/Vol] 19 U/L Normal 15-37 [facility] Comment on above: Performed By: #### C MP #### [facility] [address] [place] [address] Dr. Vanessa Denis Bilirubin [Mass/Vol] 0.9 mg/dL Normal 0.2-1.0 [facility] Comment on above: Performed By: #### C MP #### [facility] [address] [address] [address] Vanessa Denis Calcium [Mass/Vol] 9.5 mg/dL Normal 8.5-10.1 [facility] Comment on above: Performed By: #### C MP #### [facility] [address] [address] [address] Vanessa Denis Chloride [Moles/Vol] 102 mmol/L Normal 98-107 [facility] Comment on above: Performed By: #### C MP #### [facility] [address] [place] [address] Dr. Vanessa Denis CO2 [Moles/Vol] 35.2 mmol/L Critically high 21.0-32.0 [facility] Comment on above: Performed By: #### C MP #### [facility] [address] [place] [address] Dr. Vanessa Denis Creatinine [Mass/Vol] 1.23 mg/dL Critically high 0.55-1.02 [facility] Comment on above: Performed By: #### C MP #### [facility] [address] [place] [address] Dr. Vanessa Denis EGFR-AF CAMEROONIAN 52 mL/min/1.73m2 Critically low >=60 [facility] Comment on above: Performed By: #### C MP #### [facility] [address] [place] [address] Dr. Vanessa Denis EGFR-NON AF CAMEROONIAN 43 mL/min/1.73m2 Critically low >=60 [facility] Comment on above: Performed By: #### C MP #### [facility] [address] [place] [address] Dr. Vanessa Denis Globulin (S) [Mass/Vol] 4.1 g/dL Normal [facility] Comment on above: Performed By: #### C MP #### [facility] [address] [place] [address] Dr. Vanessa Denis Glucose [Mass/Vol] 267 mg/dL Critically high 74-106 T [facility] Comment on above: Performed By: #### C MP #### [facility] [address] [address] [address] Vanessa Denis Potassium [Moles/Vol] 4.9 mmol/L Normal 3.5-5.1 [facility] Comment on above: Performed By: #### C MP #### [facility] [address] [address] [address] Vanessa Denis Protein [Mass/Vol] 7.5 g/dL Normal 6.4-8.2 [facility] Comment on above: Performed By: #### C MP #### [facility] [address] [address] [address] Vanessa Denis Sodium [Moles/Vol] 139 mmol/L Normal 136-145 [facility] Comment on above: Performed By: #### C MP #### [facility] [address] [address] [address] Vanessa Denis Urea nitrogen [Mass/Vol] 26.0 mg/dL Critically high 7.0-18 .0 [facility] Comment on above: Performed By: #### C MP #### [facility] [address] [place] [address] Dr. Vnaessa Denis Urea nitrogen/Creatinine [Mass ratio] 21.1 mg/mg Normal [facility] Comment on above: Performed By: #### C MP #### [facility] [address] [place], [place] [id number] Dr. Vanessa Denis CTA CHEST WO W CONon 023 CTA CHEST WO W CON EXAMINATION: CTA FRANCES ST WO W CON HISTORY: Hypoxemia COMPARISON: No relevant comparison available. TECHNIQUE: Axial, Coronal, and Sagittal images were created without and with IV contrast. Dose reduction techniques were achieved by using automated exposure control and/or adjustment of mA and/or kV according to patient size and/or use of iterative reconstruction technique. FINDINGS: LUNGS: Minimal infiltrate in the left lower lobe. Atelectasis is favored PLEURA: No mass, effusion, or pneumothorax. VASCULATURE: Normal postcontrast opacification. No filling defect to suggest a central pulmonary embolus. JUANCARLOS: Small calcified right hilar lymph nodes MEDIASTINUM: Calcified subcarinal lymph nodes CARDIAC: No enlargement, pericardial thickening, or significant calcification. AORTA: No aneurysm or dissection. CHEST WALL: No mass or axillary adenopathy. BONES: No bone lesion or fracture. LIMITED ABDOMEN: No suspicious findings. Limited images of the upper abdomen. OTHER: Negative. IMPRESSION: No central pulmonary thromboembolic disease Electronically authenticated by: TWYLA CONTEH Date: 2022-05-30 14:23 Normal [facility] GLYCOHEMOGLOBIN A1Con 2022 ADA RECOMMENDATION SEE BELOW Normal [facility] Comment on above: Result Comment: ADA RECOMMENDED LIMIT 4.0 - 6.0 ADA THERAPEUTIC TARGET < 7.0 ACTION SUGGESTED > 7.0 Performed By: #### A 1C #### [facility] [address] [place] [address] Dr. Vanessa Denis Glucose [Mass/Vol] 203 mg/dL Normal [facility] Comment on above: Performed By: #### A 1C #### [facility] [address] [place] [address] Dr. Vanessa Denis HbA1c (Bld) [Mass fraction] 8.7 % Critically high 4.5 -6.2 [facility] Comment on above: Performed By: #### A 1C #### [facility] [address] [place] [address] Dr. Vanessa Denis HEMOGRAM AND PLATELon 2022 Hematocrit (Bld) [Volume fraction] 45.4 % Normal 3 6.0-48.0 [facility] Comment on above: Performed By: #### H H #### [facility] [address] [place] [address] Dr. Vanessa eDnis Hemoglobin (Bld) [Mass/Vol] 14.5 g/dL Normal 12.0-16. 0 [facility] Comment on above: Performed By: #### H H #### [facility] [address] [place] [address] Dr. Vanessa Denis MCH (RBC) [Entitic mass] 29.0 pg Normal 26.7-34.0 [facility] Comment on above: Performed By: #### H H #### [facility] [address] [address] [address] Vanessa Denis MCHC (RBC) [Mass/Vol] 31.9 g/dL Normal 29.9-35.2 [facility] Comment on above: Performed By: #### H H #### [facility] [address] [address] [address] Vanessa Denis MCV (RBC) [Entitic vol] 90.8 fL Normal 81.0-99.0 [facility] Comment on above: Performed By: #### H H #### [facility] [address] [place] [address] Dr. Vanessa Denis PLT 164 103/ul Normal 150-450 [facility] Comment on above: Performed By: #### H H #### [facility] [address] [place] [address] Dr. Vanessa Denis RBC 5.00 106/ul Normal 4.20-5.40 [facility] Comment on above: Performed By: #### H H #### [facility] [address] [place] [address] Dr. Vanessa Denis WBC 7.6 103/ul Normal 4.0-11.0 [facility] Comment on above: Performed By: #### H H #### [facility] [address] [place] [address] Dr. Vanessa Denis LIPID PROFILEon 05-30-2022 CHOL-HDL RATIO NORM SEE BELOW Normal [facility] Comment on above: Result Comment: 3.3 - 4.4 LOW RISK 4.4 - 7.1 AVERAGE RISK 7.1 - 11.0 MODERATE RISK >11.0 HIGH RISK Performed By: #### L IPID, TSH #### [facility] [address] [place] [address] Dr. Vanessa Denis Cholesterol [Mass/Vol] 110 mg/dL Normal <=200 [facility] Comment on above: Performed By: #### L IPID, TSH #### [facility] [address] [place] [address] Dr. Vanessa Denis Cholesterol in HDL [Mass/Vol] 51 mg/dL Normal 40-60 [facility] Comment on above: Performed By: #### L IPID, TSH #### [facility] [address] [address] [address] Vanessa Denis Cholesterol in LDL [Mass/Vol] 39.4 mg/dL Normal [facility] Comment on above: Performed By: #### L IPID, TSH #### [facility] [address] [address] [address] Vanessa Denis Cholesterol.total/Cholestero l in HDL [Mass ratio] 2.2 {ratio} Normal [facility] Comment on above: Performed By: #### L IPID, TSH #### [facility] [address] [place] [address] Dr. Vanessa Denis HDL NORMAL > or = 60 mg/dl - LO W CARDIOVASCULAR RISK <40 mg/dl - HIGH CARDIOVASCULAR RISK Normal [facility] Comment on above: Performed By: #### L IPID, TSH #### [facility] [address] [place] [address] Dr. Vanessa Denis LDL CALC NORMAL SEE BELOW Normal [facility] Comment on above: Result Comment: <100 mg/dl OPTIMAL 100 - 129 mg/dl NEAR OR ABOVE OPTIMAL 130 - 159 mg/dl BORDERLINE HIGH 160 - 189 mg/dl HIGH >190 mg/dl VERY HIGH Performed By: #### L IPID, TSH #### [facility] [address] [address] [address] Vanessa Denis Triglyceride [Mass/Vol] 98 mg/dL Normal <=150 [facility] Comment on above: Performed By: #### L IPID, TSH #### [facility] [address] [place] [address] Dr. Vanessa Denis VLDL CALC 19.6 mg/dL Normal [facility] Comment on above: Performed By: #### L IPID, TSH #### [facility] [address] [place] [address] Dr. Vanessa Denis PROF 14(COMP METB)on 023 Albumin [Mass/Vol] 3.4 g/dL Normal 3.4-5.0 [facility] Comment on above: Performed By: #### C MP #### [facility] [address] [place] [address] Dr. Vanessa Denis Albumin/Globulin [Mass ratio] 0.9 {ratio} Normal [facility] Comment on above: Performed By: #### C MP #### [facility] [address] [address] [address] Vanessa Denis ALP [Catalytic activity/Vol] 68 U/L Normal 46-116 [facility] Comment on above: Performed By: #### C MP #### [facility] [address] [place] [address] Dr. Vanessa Denis ALT [Catalytic activity/Vol] 23 U/L Normal 14-59 [facility] Comment on above: Performed By: #### C MP #### [facility] [address] [place] [address] Dr. Vanessa Denis Anion gap [Moles/Vol] 10.1 mmol/L Normal [facility] Comment on above: Performed By: #### C MP #### [facility] [address] [place] [address] Dr. Vanessa Denis AST [Catalytic activity/Vol] 21 U/L Normal 15-37 [facility] Comment on above: Performed By: #### C MP #### [facility] [address] [place] [address] Dr. Vanessa Denis Bilirubin [Mass/Vol] 0.9 mg/dL Normal 0.2-1.0 [facility] Comment on above: Performed By: #### C MP #### [facility] [address] [place] [address] Dr. Vanessa Denis Calcium [Mass/Vol] 9.2 mg/dL Normal 8.5-10.1 [facility] Comment on above: Performed By: #### C MP #### [facility] [address] [place] [address] Dr. Vanessa Denis Chloride [Moles/Vol] 101 mmol/L Normal 98-107 [facility] Comment on above: Performed By: #### C MP #### [facility] [address] [address] [address] Vanessa Denis CO2 [Moles/Vol] 31.5 mmol/L Normal 21.0-32.0 [facility] Comment on above: Performed By: #### C MP #### [facility] [address] [address] [address] Vanessa Denis Creatinine [Mass/Vol] 1.15 mg/dL Critically high 0.55-1.02 [facility] Comment on above: Performed By: #### C MP #### [facility] [address] [address] [address] Vanessa Denis EGFR-AF CAMEROONIAN 56 mL/min/1.73m2 Critically low >=60 [facility] Comment on above: Performed By: #### C MP #### [facility] [address] [address] [address] Vanessa Denis EGFR-NON AF CAMEROONIAN 46 mL/min/1.73m2 Critically low >=60 [facility] Comment on above: Performed By: #### C MP #### [facility] [address] [address] [address] Vanessa Denis Globulin (S) [Mass/Vol] 4.0 g/dL Normal [facility] Comment on above: Performed By: #### C MP #### [facility] [address] [address] [address] Vanessa Denis Glucose [Mass/Vol] 254 mg/dL Critically high 74-106 [facility] Comment on above: Performed By: #### C MP #### [facility] [address] [address] [address] Vanessa Denis Potassium [Moles/Vol] 4.6 mmol/L Normal 3.5-5.1 [facility] Comment on above: Performed By: #### C MP #### [facility] [address] [address] [address] Vanessa Denis Protein [Mass/Vol] 7.4 g/dL Normal 6.4-8.2 [facility] Comment on above: Performed By: #### C MP #### [facility] [address] [address] [address] Vanessa Denis Sodium [Moles/Vol] 138 mmol/L Normal 136-145 [facility] Comment on above: Performed By: #### C MP #### [facility] [address] [address] [address] Vanessa Denis Urea nitrogen [Mass/Vol] 24.0 mg/dL Critically high 7.0-18 .0 [facility] Comment on above: Performed By: #### C MP #### [facility] [address] [address] [address] Vanessa Denis Urea nitrogen/Creatinine [Mass ratio] 20.9 mg/mg Normal [facility] Comment on above: Performed By: #### C MP #### [facility] [address] [place] [address] Dr[address] Vanessa Denis TSHon 05-30-2022 TSH 2.067 uIU/mL Normal 0.358-3.740 [facility] Comment on above: Performed By: #### L IPID, TSH #### [facility] [address] [place] [address] [address] Vanessa Denis Vital Signs Date Time Vital Sign Value Performing Clinician Facility 02-23-2023 13:40-0400 Body height 152.4 cm Afia Maura Other [facility] Other 02-23-2023 13:40-0400 Body mass index (BMI) [Ratio] 34.72 kg/m2 Afia Maura Other [facility] Other 02-23-2023 13:40-0400 Body temperature 96.8 [degF] Afia Maura Other [facility] Other 02-23-2023 13:40-0400 Body weight 80.65 kg Afia Maura Other [facility] Other 02-23-2023 13:40-0400 Diastolic blood pressure 82 mm[Hg] Afia Maura Other [facility] Other 02-23-2023 13:40-0400 Respiratory rate 20 /min Afia Maura Other [facility] Other 02-23-2023 13:40-0400 SaO2% (BldA) [Mass fraction] 99 % Afia Maura Other [facility] Other 02-23-2023 13:40-0400 Systolic blood pressure 132 mm[Hg] Afia Maura Other [facility] Other 12-31-2022 09:00-0400 Body height 152.4 cm Afia Maura Other [facility] Other 12-31-2022 09:00-0400 Body mass index (BMI) [Ratio] 32.14 kg/m2 Afia Maura Other [facility] Other 12-31-2022 09:00-0400 Body temperature 96.3 [degF] Afia Maura Other [facility] Other 12-31-2022 09:00-0400 Body weight 74.66 kg Afia Maura Other [facility] Other 12-31-2022 09:00-0400 Diastolic blood pressure 56 mm[Hg] Afia Maura Other [facility] Other 12-31-2022 09:00-0400 Respiratory rate 20 /min Afia Maura Other [facility] Other 12-31-2022 09:00-0400 SaO2% (BldA) [Mass fraction] 98 % Afia Maura Other [facility] Other 12-31-2022 09:00-0400 Systolic blood pressure 91 mm[Hg] Afia Maura Other [facility] Other Encounters Encounter Date Encounter Type Care Provider Facility Start: 06-30-2023 ambulatory KD OZUNA Facility:[facility] Start: 04-08-2023 End: 04-08-2023 ambulatory Afia Maura Other [facility] Other Start: 04-08-2023 Telephone encounter Afia Maura [facility] Start: 02-27-2023 ambulatory KD OZUNA Fac ility:[facility] Start: 02-23-2023 End: 02-23-2023 ambulatory Afia Maura Other [facility] Other Start: 02-23-2023 Office outpatient vi sit 25 minutes Afia Maura [facility] Start: 12-31-2022 End: 12-31-2022 ambulatory Afia Maura Other [facility] Other Start: 12-31-2022 Office outpatient ne w 45 minutes Afia Maura [facility] Start: 08-13-2022 End: 08-13-2022 ambulatory DARRION SHAMMO Facility:[facility] Start: 08-11-2022 End: 08-11-2022 ambulatory DARRION SHAMMO Facility:[facility] Start: 05-30-2022 End: 05-31-2022 ambulatory DARRION SHAMMO Facility:[facility] Start: 05-28-2022 End: 05-28-[address] JENIFER CASTILLO Facility:[facility] Start: 07-08-2021 End: 02-03-2022 ambulatory [place] Payers Date Payer Category Payer Private Health Insurance [id number] 1961 Medicaid [id number] 1961 Medicare [id number] 1950 Unknown [id number] 2.16.84 [id number] 1950 Unknown [id number] 2.16.84 [id number] 1950 Unknown [id number] 2.16.84 [id number] 1948 Unknown [id number] 2.16.84 [id number] 1950 Unknown [id number] 2.16.84 [id number] 1950 Unknown [id number] 2.16.8 [id number] Social History Date Type Detail Facility Unknown if ever smoked [facility] Other Sex Assigned At Sex Assigned At Bir th [facility] Other Evaluation note 02-23-2023 Note Date & Type Note Facility 02-23-2023 Evaluation note Encounter Date Diagnosis Assessment Notes Jan, CKD (chronic kidney disease) stage 4, GFR 15-29 ml/min (ICD-10 - N18.4) She has a CKD due to the longstanding DM and HTN. Her serum creatinine is 2.1 mg/dL. Her renal function has been declining likely due to the progression of the CKD. Her renal ultrasound showed bilateral renal cyst with no evidence of kidney mass, hydronephrosis or stones. Discussed with her importance of good DM and HTN control to slow down the progression of CKD. 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 She appears to be euvolemic. Continue current medications. I would recommend to monitor blood pressure at the assisted-living. If she has a high blood pressure above 140 over 90 mmHg then call office. 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 Continue work with PCP for better sugar control. Continue lisinopril for renal protection. She is not a suitable candidate for SGL 2 inhibitors due to her advanced CKD. Continue Mounjaro to slow down the progression of CKD. Jan, Secondary hyperparathyroidism (ICD-10 - N25.81) She has hyperphosphatemia due to the CKD but her calcium and PTH are within the goal. She has a high normal vitamin D so i have advised her to change vitamin D to every other week. Jan, Anemia of renal disease (ICD-10 - D63.1) Hemoglobin within the goal. Continue oral iron. She has a high level of B12 advised to stop the B12 level. She has mildly elevated free light ratio likely due to the CKD but unremarkable serum immunofixation and SPEP. Jan, Urinary incontinence (ICD-10 - R32) Will refer back to the Dr. Cueva. Jan, Hyperuricemia (ICD-10 - E79.0) She has hyperuricemia due to the CKD but denies any recent gout flare. Continue monitor without medications. [facility] Other Evaluation note 12-31-2022 Note Date & Type Note Facility 12-31-2022 Evaluation note Encounter Date Diagnosis Assessment Notes Dec, CKD (chronic kidney disease) stage 4, GFR 15-29 ml/min (ICD-10 - N18.4) It was a pleasure to see Mrs. Zamora in our office for an evaluation and management of CKD. As you know she has a longstanding DM with HTN and likely has a CKD as a result of these comorbidities. I have ordered a renal ultrasound to evaluate the renal anatomy. I have ordered a UA and UPCR to evaluate for hematuria proteinuria. I discussed with her the importance of good DM and HTN control to slow down the progression of CKD. 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 She appears to be euvolemic. Continue current medications. I would recommend to monitor blood pressure at the assisted-living. If she has a high blood pressure above 140 over 90 mmHg then call office. Dec, Diabetes mellitus with chronic kidney disease (ICD-10 - E11.22) Blood sugars are improving. Continue work with PCP for better sugar control. Continue lisinopril for renal protection. She is not a suitable candidate for SGL 2 inhibitors due to her advanced CKD. Continue Mounjaro to slow down the progression of CKD. Dec, Secondary hyperparathyroidism (ICD-10 - N25.81) Calcium is within normal limit. We will check PTH and vitamin D Dec, Anemia of renal disease (ICD-10 - D63.1) Continue oral iron. We will check the CBC iron studies B12 and folate level. We will check also for paraproteinemia work-up. [facility] Other Evaluation note Note Date & Type Note Facility Evaluation note No Information [facility] Other History general Narrative - Reported Note Date & Type Note Facility History general Narrative - Reported Type Medical History LYMPHEDEMA Medical History VARUS FOOT DEFORMITY, ACQUIRED Medical History MIGRAINE Medical History ANXIETY Medical History AORTIC STENOSIS, MILD Medical History BIPOLAR DISORDER Medical History CKD Medical History DEPRESSION Medical History DIABETES MELLITUS Medical History HYPERTENSION Medical History GERD Medical History HYPOTHYROIDISM Medical History TIA Medical History OSTEOPOROSIS Surgical History LEFT FOOT SURGERY Surgical History CLEFT PALATE REPAIR Surgical History TONSILLECTOMY AND ADENOIDECTOMY Hospitalization History SEE ABOVE [facility] Other History general Narrative - Reported Note Date & Type Note Facility History general Narrative - Reported Type Medical History LYMPHEDEMA Medical History VARUS FOOT DEFORMITY, ACQUIRED Medical History MIGRAINE Medical History ANXIETY Medical History AORTIC STENOSIS, MILD Medical History BIPOLAR DISORDER Medical History CKD Medical History DEPRESSION Medical History DIABETES MELLITUS Medical History HYPERTENSION Medical History GERD Medical History HYPOTHYROIDISM Medical History TIA Medical History OSTEOPOROSIS Medical History INCONTINENCE Surgical History LEFT FOOT SURGERY Surgical History CLEFT PALATE REPAIR Surgical History TONSILLECTOMY AND ADENOIDECTOMY Hospitalization History SEE ABOVE [facility] Other Summary Purpose Family History No Family History Records FoundNo Family History Records FoundNo Family History Records Found Advance Directives No Advanced Directives Records FoundNo Advanced Directives Records FoundNo Advanced Directives Records Found Additional Source Comments INFORMATION SOURCE (unrecogn ized section and content) DATE CREATED AUTHOR 02/03/2022 [place] DATE CREATED AUTHOR AUTHOR'S ORGANIZ ATION 08/22/2022 [facility] DATE CREATED AUTHOR AUTHOR'S ORGANIZ ATION 03/31/[address] [facility] REASON FOR VISIT (unrecogniz ed section and content) UTILITY SALES REPRESENTATIVE CKD STAGE 4CKD and HTNURO LOGY REFERRL UPDATE FOR RECORDS PERTAINING TO PATIENTS WHO ARE OR HAVE BEEN ENROLLED IN A CHEMICAL DEPENDENCY/SUBSTANCEABUSE PROGRAM, SOME INFORMATION MAY BE OMITTED. This clinical summary was aggregated from multiple sources. Caution should be exercised in using it in the provision of clinical care. This summary normalizes information from multiple sources, and as a consequence, information in this document may materially change the coding, format and clinical context of patient data. In addition, data may be omitted in some cases. CLINICAL DECISIONS SHOULD BE BASED ON THE PRIMARY CLINICAL RECORDS. [facility] [employer] [facility]. provides no warranty or guarantee of the accuracy or completeness of information in this document.
== END 2023-03-31 19:13 | disposition home or self-care (01) ==
PROVIDERS: Physician Assistant; Emergency Provider Emergency Medicine; PCP Nurse Practitioner Primary Care
DX: N30.90 Cystitis, unspecified without hematuria (principal); Z87.440 Personal history of urinary (tract) infections; R32 Unspecified urinary incontinence; Z79.82 Long term (current) use of aspirin; Z79.899 Other long term (current) drug therapy; R10.9 Unspecified abdominal pain
CPT/HCPCS: 36415; 74176; 80048; 81001; 85025; 87086; 87150; 87186; 99284

== ENCOUNTER 2023-04-08 00:48 | Outpatient (REF) | payer MEDICARE, MEDICAID, SELFPAY ==
[2023-04-09 07:08] LABS: HCV Ab Non Reactive (Non Reactive)
== END 2023-04-08 00:49 | disposition home or self-care (01) ==
LOC: LAB 00:48
PROVIDERS: PCP Nurse Practitioner Primary Care; Visit Provider Nurse Practitioner Primary Care
DX: Z11.59 Encounter for screening for other viral diseases (principal)
CPT/HCPCS: 36415; 86803

== ENCOUNTER 2023-05-11 00:40 | Outpatient (REF) | payer MEDICARE, MEDICAID, SELFPAY ==
--- OUTSIDE RECORDS SUMMARY | 2023-05-11 00:43 | XMS_ITS | CCD ---
Author Name Unknown Address [address] [facility] [address] [place] [address] Organization [facility] Care Team Providers Care Cosmetic Surgeon Name Role Phone SHAMMO, DARRION Primary Care [...] DARRION Attending Unavailable SHAMMO, DARRION Consulting Unavailable Nicolás Perry Unavailable RICHARD VARGAS Primary Care Physician [phone] KEN OZUNA Attending Unavailable NICOLÁS PERRY Referring Unavailable Nancy Stern Attending Unavailable Medications Current Medications Medication Drug Class(es) Dates Sig (Normalized) Sig (Original) 0.5 ML tirzepatide 10 MG/ML Auto-Injector [Mounjaro] (2 sources) Mounjaro 5 MG/0. 5ML as directed Subcutaneous ONCE A WEEK Active Acetaminophen (4 sources) Start: 07-10-2020 acetaminophen Refills(s) 0 Start Date: 07/10/20 Status: Ordered take 1 tablet by lei every four hours Acetaminophen 325 MG 1 tablet as needed Orally every 4 hrs Active albuterol 0.83 mg/ml inhalation solution (6 sources) beta2-Adrenergic Agonist Albuter ol Sulfate (2.5 MG/3ML) 0.083% 3 mL as [...] Active alendronic acid 70 mg oral tablet (4 sources) Bisphosphonate Start: 07-10-2020 take 1 mg by mouth every week alendronate 70 mg oral tablet mg tab(s), Oral, qWeek, Refills(s) 0 Start Date: 07/10/20 Status: Ordered take 1 tablet by mouth once fernandez y Alendronate Sodium 70 MG 1 tablet 30 minutes before the first food, beverage or medicine of the day with plain water Orally Active ascorbic acid 250 mg chewable tablet (2 sources) Vitamin C take 1 tablet by mouth every twelve hours Vitamin C 250 MG 1 tablet Orally TWICE A DAY Active aspirin 81 mg delayed release oral tablet (4 sources) Platelet Aggregation Inhibitor, Nonsteroidal Anti-inflammatory Drug Start: 1 take 1 mg by mouth once daily aspirin 81 mg Oral EC Tab mg tab(s), Oral, Daily, Refills(s) 0 Start Date: 07/10/20 Status: Ordered ergocalciferol 1.25 mg oral capsule (3 sources) Provitamin D2 Compound take 1 capsule by mouth every week Vitamin D (Ergocalciferol) 1.25 MG (91913 UT) 1 capsule Orally ONCE A WEEK Active ferrous sulfate (4 sources) Start: 1 ferrous sulfate Oral, Refills(s) 0 Start Date: 07/10/20 Status: Ordered take 1 tablet by lei every twenty-four hours Ferrous Sulfate 325 (65 Fe) MG 1 tablet Orally ONCE A DAY Active take 1 tablet by mouth once fernandez y Ferrous Sulfate 325 (65 Fe) MG 1 tablet Orally ONCE A DAY Active furosemide 20 mg oral tablet (4 sources) Loop Diuretic Start: 07-10-2020 take 1 mg by mouth once daily furosemide 20 mg Tab mg tab(s), Oral, Daily, Refills(s) 0 Start Date: 07/10/20 Status: Ordered hydroCHLOROthiazide 12.5 mg / lisinopril 20 mg oral tablet (3 sources) Thiazide Diuretic, Angiotensin Converting Enzyme Inhibitor take 1 tablet by mouth every twenty-four hours Lisinopril-hydr oCHLOROthiazide 20-12.5 MG 1 tablet Orally Once a day Active take 1 tablet by lei th once daily Lisinopril-hydroCHLOROthiazide 20-12.5 M G 1 tablet Orally Once a day Active lisinopril 5 mg oral tablet (1 source) Angiotensin Converting Enzyme Inhibitor Start: 07-10-2020 take 1 mg by mouth once daily lisinopril 5 mg Tab mg tab(s), Oral, Daily, Refills(s) 0 Start Date: 07/10/20 Status: Ordered Magnesium (3 sources) take 1 tablet by mouth once daily Magnesium 400 MG 1 tablet with a meal Orally Once a day Active Magnesium 400 MG as directed Orally Active metFORMIN hydrochloride 500 mg oral tablet (1 source) Biguanide Start: 07-10-2020 take 1 mg by mouth once daily metformin 500 mg ER Tab mg tab(s), Oral, Daily, Refills(s) 0 Start Date: 07/10/20 Status: Ordered mounjaro 5 mg/0.5ml solution pen-injector (1 source) Mounjaro 5 MG/0.5ML as directed Subcutaneous ONCE A WEEK Active ondansetron 4 mg disintegrating oral tablet (3 sources) Serotonin-3 Receptor Antagonist take 1 tablet by mouth every four hours as needed Ondansetron 4 MG 1 tablet on the tongue and allow to dissolve Orally EVERY 4 HOURS NEEDED Active pantoprazole 40 mg extended release oral tablet (4 sources) Proton Pump Inhibitor Start: 07-10-2020 take 1 mg by mouth once daily pantoprazole 40 mg Oral EC Tab mg tab(s), Oral, Daily, Refills(s) 0 Start Date: 07/10/20 Status: Ordered take 1 tablet by lei th every twenty-four hours Pantoprazole Sodium 20 MG 1 tablet Orall y Once a day Active potassium chloride 20 meq extended release oral tablet (3 sources) take 1 tablet by mouth every twenty-four hours Potassium Chloride ER 20 MEQ 1 tablet with food Orally Once a day Active QUEtiapine 25 mg oral tablet (1 source) Atypical Antipsychotic Start: take 1 mg by mouth three times daily SEROquel 25 mg Tab mg tab(s), Oral, TID, Refills(s) 0 Start Date: 07/10/20 Status: Ordered rosuvastatin calcium 5 mg oral tablet (3 sources) HMG-CoA Reductase Inhibitor take 1 tablet by mouth every twenty-four hours Rosuvastatin Calcium 5 MG 1 tablet Orally Once a day Active SITagliptin 50 mg oral tablet (1 source) Dipeptidyl Peptidase 4 Inhibitor Start: take 1 tablet by mouth once daily Januvia 50 mg Tab 50 mg = 1 tab(s), Oral, Daily, # 30 tab(s), Refills(s) 0 Start Date: 07/10/20 Status: Ordered vitamin b12 1 mg extended release oral [...] 1 tablet Orally TWICE A DAY Active Vitamin D3 (1 source) Start: Vitamin D3 Refills(s) 0 Start Date: 07/10/20 Status: Ordered Problems Problem Classification Problem Date Documented Date Episodic/Chronic Acute cerebrovascular disease (1 source) Cerebrovascular accident 07-10-2020 Chronic Asthma (1 source) Asthma 07-10-2020 Chronic Chronic kidney disease (6 sources) Chronic kidney disease stage 4; Translations: [Chronic kidney disease, stage 4 (severe)] Chronic Congestive heart failure; nonhypertensive (1 source) Chronic combined systolic (congestive) and diastolic (congestive) heart failure; Translations: [CHRON COMB SYSTOLIC AND DIASTOLIC CHF] Onset: Chronic Deficiency and other anemia (3 sources) Anemia of renal disease; Translations: [Anemia in chronic kidney disease] Chronic Deficiency and other anemia (2 sources) Anemia in chronic kidney disease Chronic Deficiency and other anemia (1 source) Anemia 07-10-2020 Episodic Diabetes mellitus with complications (5 sources) Disorder of kidney due to diabetes mellitus; Translations: [Type 2 diabetes mellitus with diabetic chronic kidney disease] Chronic Diabetes mellitus without complication (6 sources) Type 2 diabetes mellitus without complications; Translations: [Diabetes mellitus] Onset: 3 Chronic Disorders of lipid metabolism (1 source) Hyperlipidemia, unspecified; Translations: [HYPERLIPIDEMIA UNSPECIFIED] Onset: 3 Chronic E Codes: Fall (1 source) Fall; Translations: [Unspecified fall, initial encounter] Onset: 3 Episodic Essential hypertension (5 sources) Essential (primary) hypertension; Translations: [Hypertensive disorder] Onset: 3 Chronic Genitourinary symptoms and ill-defined conditions (3 sources) Urinary incontinence; Translations: [Unspecified urinary incontinence] Chronic Headache; including migraine (1 source) Headache 07-10-2020 Episodic Heart valve disorders (1 source) Heart murmur duration, short 07-10-2020 Episodic Hypertension with complications and secondary hypertension (6 sources) Hypertensive heart disease with heart failure; Translations: [Chronic kidney disease due to hypertension] Onset: 3 Chronic Miscellaneous mental health disorders (1 source) Mental disorder 07-10-2020 Chronic Osteoarthritis (1 source) Arthritis 07-10-2020 Chronic Other aftercare (1 source) 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; Translations: [PRISON USE ORAL HYPOGLYCEMIC DX] Onset: 3 Episodic Other aftercare (1 source) Other detention (current) drug therapy; Translations: [OTH PRISON CURRENT DRUG THERAPY] Onset: 3 Episodic Other diseases of kidney and ureters (3 sources) Secondary hyperparathyroidism; Translations: [Secondary hyperparathyroidism of renal origin] Chronic Other diseases of kidney and ureters (2 sources) Secondary hyperparathyroidism of renal origin Chronic Other injuries and conditions due to external causes (1 source) Injury of head; Translations: [Unspecified injury of head, initial encounter] Onset: 3 Episodic Other lower respiratory disease (4 sources) Hypoxemia; [...] DZ COND RULED OUT] Onset: 3 Episodic Residual codes; unclassified (1 source) Edema of lower extremity 07-10-2020 Episodi c Schizophrenia and other psychotic disorders (2 sources) Schizoaffective disorder, bipolar type; Translations: [Schizoaffective disorder. bipolar type] Onset: 2 Chronic Thyroid disorders (2 sources) Hypothyroidism, unspecified; Translations: [Hypothyroidism] Onset: 3 07-10-2020 Chronic Results Test Name Value Interpretation Reference Range Facility ABO/Rh History Checkon 04-18 ABO/Rh History Check Patient discharged prior Normal [facility] Comment on above: Performed By: #### 1 [id number], [id number] ####[facility] [id number] [place] [address] CT Head or Brain w/o Contras ton 04-18-2023 CT Head or Brain w/o Contrast Exam Date/Time: 04/17/2023 21:20 EST Reason for Exam: HEAD TRAUMA, MOD-SEVERE;Other (please specify) Report IMPRESSION: There are no acute intracranial changes. There is a small area of subcutaneous scalp swelling in the posterior right spine. Acute bilateral maxillary sinusitis. EXAM: CT Head or Brain w/o Contrast DATE: 04/17/2023 9:20 PM CLINICAL HISTORY: AMS HEAD TRAUMA, MOD-SEVERE TECHNIQUE: Multiple images axial images were obtained without contrast administration. 3-D sagittal and coronal reconstructions were performed. All CT scans at this facility use dose modulation, iterative reconstruction, and/or weight based dosing when appropriate to reduce radiation dose to as low as reasonably achievable. COMPARISON: FINDINGS: There is no evidence of acute hemorrhage, mass effect or edema. There are no extra-axial collections or space-occupying lesions. There is no evidence of acute ischemia, loss of garcia-white matter differentiation There is mild prominence of sulci and ventricles similar to the previous study indicating global cerebral atrophy. There are periventricular white matter hypodensities associated chronic microangiopathy. The posterior fossa is unremarkable, The orbits demonstrate no intra or extraconal lesions. The globes are intact. There are fluid levels in the bilateral maxillary sinuses indicating acute exacerbation of sinusitis. There is a small area of subcutaneous soft tissue swelling in the right posterior scalp. The calvarium is unremarkable. Report Ordering Provider: Royal Sullivan FINAL REPORT Dictated: 04/18/2023 8:42 am Dante Pelaez MD, V. Signed (Electronic Signature): 04/18/2023 8:42 am Signed by: Dante Pelaez MD, V. Transcribed by: GREG Technologist: QUINCY Technical Comments Contrast: None Normal [facility] CT Spine Cervical w/o Contra ston 04-18-2023 CT Spine Cervical w/o Contrast Exam Date/Time: 04/17/2023 21:20 EST Reason for Exam: NECK TRAUMA, DANGEROUS INJURY MECHANISM;Trauma Report IMPRESSION: THERE ARE NO ACUTE OSSEOUS CHANGES. CLINICAL HISTORY: Trauma, NECK TRAUMA, DANGEROUS INJURY MECHANISM COMPARISON: TECHNIQUE: Multiple axial images of the cervical spine were obtained without contrast administration. 3-D sagittal and coronal reconstructions were performed. All CT scans at this facility use dose modulation, iterative reconstruction, and/or weight based dosing when appropriate to reduce radiation dose to as low as reasonably achievable. FINDINGS: Limited due to motion artifact The prevertebral soft tissues are unremarkable. The trachea is patent. There are no lytic or sclerotic bone lesions. There is no acute fracture or subluxation. There is no loss of vertebral body height. There is increased lordosis of the cervical spine. There is mild intervertebral disc space narrowing at every level. The axial images demonstrate no significant central canal narrowing or neural foraminal narrowing at any level. The visualized portions of the lung apices are within normal limits. Ordering Provider: Royal Sullivan FINAL REPORT Dictated: 04/18/2023 8:45 am Dante Pelaez MD, V. Signed (Electronic Signature): 04/18/2023 8:45 am Signed by: Dante Pelaez MD, V. Transcribed by: GREG Technologist: QUINCY Normal [facility] Discharge Instructionson Discharge Instructions [id number] Normal [facility] ED Clinical Summaryon 2022 ED Clinical Summary [place] [id number] ED Clinical Summary Person Information Name: AVILA VALENZUELA/New_Isaac Age: 73 Years : 1950 Sex: Female Language: Greenlandic PCP: RICHARD VARGAS MD Marital Status: Single Visit Id: Visit Reason: Closed head injury without LOC; Fall; fall Speciality: Acuity: 3 Enc Type: Emergency Med Service: Emergency Arrival: 04/17/2023 20:26:34 Discharge: 04/18/2023 00:43:19 LOS: 000 04:17 Checkin: 04/17/2023 20:26:34 Checkout: 04/18/2023 00:43:19 Dispo Type: Home (Routine DC) EVENTS: Event Name Event Status Request Date/Time Start Date/Time Complete Date/Time Arrive Complete 04/17/2023 20:26:34 04/17/2023 20:26:34 04/17/2023 20:26:34 Document Home Meds Request 04/17/2023 20:26:34 Triage Complete 04/17/2023 20:26:34 04/17/2023 20:35:51 04/17/2023 20:35:51 Bed Assign Complete 04/17/2023 20:28:08 04/17/2023 20:28:08 04/17/2023 20:28:08 Dr Exam Complete 04/17/2023 20:28:08 04/17/2023 20:31:35 04/17/2023 20:31:35 RN Exam Complete 04/17/2023 20:28:08 04/17/2023 21:27:13 04/17/2023 21:27:13 Trauma II Request 04/17/2023 20:29:04 Registration Complete 04/17/2023 20:31:35 04/17/2023 20:54:00 04/17/2023 20:54:00 Consult Request 04/17/2023 20:35:29 EKG Complete 04/17/2023 20:35:29 04/17/2023 20:48:17 NPO Request 04/17/2023 20:35:29 Pending Labs Inlab 04/17/2023 20:35:29 Lab Complete 04/17/2023 20:35:29 04/17/2023 22:00:59 Urine Collect Complete 04/17/2023 20:35:29 04/17/2023 22:00:59 RT Request 04/17/2023 20:35:30 Patient Care Request 04/17/2023 20:35:30 CT Complete 04/17/2023 20:35:30 04/17/2023 21:20:38 Blood Collect Request 04/17/2023 20:35:30 Pending Labs Complete 04/17/2023 20:48:41 04/17/2023 20:48:41 04/17/2023 21:15:45 Lab Complete 04/17/2023 20:48:41 04/17/2023 20:48:41 04/17/2023 21:15:45 Reg Complete Request 04/17/2023 20:54:00 Reg Bed Request Complete 04/17/2023 20:54:00 04/17/2023 20:54:00 04/17/2023 20:54:00 Pending Labs Complete 04/17/2023 21:01:05 04/17/2023 21:01:05 04/17/2023 21:01:12 Lab Complete 04/17/2023 21:01:05 04/17/2023 21:01:05 04/17/2023 21:01:12 Pending Labs Request 04/17/2023 21:05:49 Lab Request 04/17/2023 21:05:49 Dr Exam Complete 04/17/2023 21:07:14 04/17/2023 21:07:14 04/17/2023 21:07:14 Registration Complete 04/17/2023 21:07:14 04/17/2023 22:12:22 04/17/2023 22:12:22 Trauma II Request 04/17/2023 21:25:22 Fall Risk Request 04/17/2023 21:27:14 Discharge Complete 04/17/2023 23:18:34 04/18/2023 00:43:24 04/18/2023 00:43:24 Transfer Complete 04/18/2023 00:43:24 04/18/2023 00:43:24 04/18/2023 00:43:24 ADDRESS: [address] [place] [address] [address] [facility] [id number] PHYS DOC NOTES: MEDICAL INFORMATION: Prescriptions Given: Medications to Continue with No Changes Other Medications acetaminophen alendronate (alendronate 70 mg oral tablet) By Mouth every week. aspirin (aspirin 81 mg Oral EC Tab) By Mouth every day. cholecalciferol (Vitamin D3) ferrous sulfate By Mouth. furosemide (furosemide 20 mg Tab) By Mouth every day. lisinopril (lisinopril 5 mg Tab) By Mouth every day. metformin (metformin 500 mg ER Tab) By Mouth every day. pantoprazole (pantoprazole 40 mg Oral EC Tab) By Mouth every day. quetiapine (SEROquel 25 mg Tab) By Mouth 3 times a day. sitagliptin (Januvia 50 mg Tab) 1 Tablets By Mouth every day. PATIENT EDUCATION INFORMATION: Instructions: Head Injury, Adult Follow up: With: Address: When: RICHARD VARGAS [address] [place] [id number] [facility] ([email or web address] In 3 days 04/20/2023 Comments: Follow-up with your primary care provider in 3 to 5 days. If symptoms worsen, do not improve, or new symptoms arise please report back to emergency department for further evaluation. DIAGNOSIS: Closed head injury; Fall Normal [facility] ED Note-Physicianon 04-18-20 ED Note-Physician Basic Information Time Seen: Nate YI, Royal Beltran. 04/17/2023 20:31 Chief Complaint Pt arrrives [facility] for a fall. Pt states she hit her head; hematoma noted on the R occipital area. Pt denies being on blood thinners. A/O x4. ETOH +; pt states two glasses of wine. History of Present Illness 73-year-old female reports to the emergency department after a fall. Reports that she was out at a winery, when she had a few drinks, walk outside, and fell. Reports that she hit her head. Reports that the back of her head. She denies being any blood thinners. Reports that because she fell, just want to get checked out make sure nothing else going on. Reports that she has been drinking. Reports that she had 2 glasses of wine. Reports that she is on a baby aspirin. Reports otherwise no other injuries. States otherwise she feels well. Review of Systems A 10 point review of systems is negative except as noted above. Medical and Surgical History: Reviewed and noted Social history: Lives at home Family History: Reviewed. Tobacco: Denies, former Physical Exam Vitals & Measurements T: 36.6 ?C(Oral) HR: 68(Monitored) RR: 20 BP: 134/82 SpO2: 94% HT: 152.40 cm WT: 77.5 kg BMI: 33.37 General: The patient appears well and in no apparent distress. Patient is resting comfortably on bed. Afebrile Skin: Warm, dry, no pallor noted. Small area of ecchymosis located on the lower right posterior part of the scalp. No lacerations noted. Head: Normocephalic, atraumatic Neck: No JVD Eye: PERRLA, EOMI ENT: Moist mucus membranes Cardiovascular: Regular rate normal peripheral perfusion. Radial pulses +2 bilaterally. Pedal pulses +2 bilaterally Respiratory: No respiratory distress no accessory muscle use no obvious audible wheezing. Lung sounds clear to auscultation Chest Wall: no deformity. No chest wall tenderness Musculoskeletal: normal ROM, no deformity, no swelling. GI: No obvious distention soft nontender nondistended no guarding rebounding or rigidity. Pelvis stable Neurological: A&Ox4. moves all extremities equal strength and symmetry. No focal neurological defects.. Psychiatric: Cooperative and appropriate Medical Decision Making MEDICAL DECISION MAKING Number and Complexity of Problems Differential Diagnosis: [] [facility] Data External documents reviewed: [] My EKG interpretation: Reviewed My CT interpretation: Reviewed My X-ray interpretation: Reviewed My Ultrasound interpretation: [] Decision rules/scores evaluated: [] Discussed with: [] Treatment and Disposition ED Course: 73-year-old female reports emerged department via squad after a fall. Reports that she was out drinking at a winery, and fell. Reports that she had no preceding symptoms. Reports that she loses her balance quite often. Reports that she has fallen before. States that she did hit her head. Denies any other injuries. Reports being on baby aspirin. On physical exam, she has no focal neurological defects. Only pertinent finding is some ecchymosis located on the posterior aspect of the scalp. No lacerations noted. Due to concerns, we did do a trauma workup. Lab reviewed and noted. Her ethanol did come back at 83, but was alert and oriented throughout her stay. No other acute findings. Send EKG reviewed and noted. CT of her head and neck were negative for any acute fractures or intracranial hemorrhage. Discussed with the patient. Discussed return precautions. Follow-up with your primary care provider in 3 to 5 days. If symptoms worsen, do not improve, or new symptoms arise please report back to emergency department for further evaluation. The patient was understanding and agreeable to plan moving forward. Shared decision making: [] Code status: [] Assessment/Plan Closed head injury (S09.90XA: Unspecified injury of head, initial encounter) Fall (W19.XXXA: Unspecified fall, initial encounter) Orders: ABO/Rh ABO/Rh History Check Antibody Screen Automated Diff Basic Metabolic Panel Blood Bank ID# CBC w/ Auto Diff Consult to General Surgery CT Head or Brain w/o Contrast CT Spine Cervical w/o Contrast Drug Screen Urine ECG 12 Lead Adult ED Cardiac Monitoring eGFR Ethanol Level Hepatic Function Panel Lactic Acid Lactic Acid Lipase Level NPO Diet Oxygen Therapy PT & PTT Pulse Oximetry Continuous Saline Lock Insert Troponin Disposition Plan Patient Discharge Condition Stable Discharge Disposition To home Discharge Prescription List Prescriptions No active prescription medications Follow-up With When Contact Information RICHARD SAM In 3 days 04/20/2023 EST [id number] [place] [address]- Business (1) Additional Instructions: Follow-up with your primary care provider in 3 to 5 days. If symptoms worsen, do not improve, or new symptoms arise please report back to emergency department for further evaluation. Patient Education Head Injury, Adult Attestation Patient seen (more content not included)... Normal [facility] Comment on above: Result Comment: Elec tronically Signed By: Royal Sullivan PA-C\.br\Date and Time Signed: 04/17/23 23:30 EST\.br\Electronically Co-Signed By: Nancy Stern DO.br\Date and Time Co-Signed: 04/18/23 01:27 [facility] ED Patient Education Noteon 04-18-2023 ED Patient Education Note Neurology Head Injury, Adult There are many types of head injuries. Head injuries can be as minor as a small bump, or they can be a serious medical issue. More severe head injuries include: ? A jarring injury to the brain (concussion). ? A bruise (contusion) of the brain. This means there is bleeding in the brain that can cause swelling. ? A cracked skull (skull fracture). ? Bleeding in the brain that collects, clots, and forms a bump (hematoma). After a head injury, most problems occur within the first 24 hours, but side effects may occur up to 7?10 days after the injury. It is important to watch your condition for any changes. You may need to be observed in the emergency department or urgent care, or you may be admitted to the hospital. What are the causes? There are many possible causes of a head injury. Serious head injuries may be caused by car accidents, bicycle or motorcycle accidents, sports injuries, falls, or being struck by an object. What are the symptoms? Symptoms of a head injury include a contusion, bump, or bleeding at the site of the injury. Other physical symptoms may include: ? Headache. ? Nausea or vomiting. ? Dizziness. ? Blurred or double vision. ? Being uncomfortable around bright lights or loud noises. ? Seizures. ? Feeling tired. ? Trouble being awakened. ? Loss of consciousness. Mental or emotional symptoms may include: ? Irritability. ? Confusion and memory problems. ? Poor attention and concentration. ? Changes in eating or sleeping habits. ? Anxiety or depression. How is this diagnosed? This condition can usually be diagnosed based on your symptoms, a description of the injury, and a physical exam. You may also have imaging tests done, such as a CT scan or an MRI. How is this treated? Treatment for this condition depends on the severity and type of injury you have. The main goal of treatment is to prevent complications and allow the brain time to heal. Mild head injury If you have a mild head injury, you may be sent home, and treatment may include: ? Observation. A responsible adult should stay with you for 24 hours after your injury and check on you often. ? Physical rest. ? Brain rest. ? Pain medicines. Severe head injury If you have a severe head injury, treatment may include: ? Close observation. This includes hospitalization with the following care: ? Frequent physical exams. ? Frequent checks of how your brain and nervous system are working (neurological status). ? Checking your blood pressure and oxygen levels. ? Medicines to relieve pain, prevent seizures, and decrease brain swelling. ? Airway protection and breathing support. This may include using a ventilator. ? Treatments that monitor and manage swelling inside the brain. ? Brain surgery. This may be needed to: ? Remove a collection of blood or blood clots. ? Stop the bleeding. ? Remove a part of the skull to allow room for the brain to swell. Follow these instructions at home: Activity ? Rest and avoid activities that are physically hard or tiring. ? Make sure you get enough sleep. ? Let your brain rest by limiting activities that require a lot of thought or attention, such as: ? Watching TV. ? Playing memory games and puzzles. ? Job-related work or homework. ? Working on the computer, using social media, and texting. ? Avoid activities that could cause another head injury, such as playing sports, until your health care provider approves. Having another head injury, especially before the first one has healed, can be dangerous. ? Ask your health care provider when it is safe for you to return to your regular activities, including work or school. Ask your health care provider for a zofo-ga-cwfj plan for gradually returning to activities. ? Ask your health care provider when you can drive, ride a bicycle, or use heavy machinery. Your ability to react may be slower after a brain injury. Do not do these activities if you are dizzy. Lifestyle ? Do not drink alcohol until your health care provider approves. Do not use drugs. Alcohol and certain drugs may slow your recovery and can put you at risk of further injury. ? If it is harder than usual to remember things, write them down. ? If you are easily distracted, try to do one thing at a time. ? Talk with family members or close friends when making important decisions. ? Tell your friends, family, a trusted colleague, and work checker about your injury, symptoms, and restrictions. Have them watch for any new or worsening problems. General instructions ? Take ianw-yuj-igezjcv and prescription medicines only as told by your health care provider. ? Have someone stay with you for 24 hours after your head injury. This person should watch you for any changes in your symptoms and be ready to seek medical help. ? Keep all follow-up visits as told by your health care pr (more content not included)... Normal [facility] ED Patient Summaryon 023 ED Patient Summary [place] [id number] Patient Discharge Instructions Person Information Name: AVILA VALENZUELA Age: 73 Years Arrival Date: 04/17/2023 20:26:34 Discharge Diagnosis: Closed head injury; Fall Primary Care Physician: RICHARD VARGAS MD Provider Information Primary Provider: Nancy Stern DO Advanced Projection Welding Machine Operator:None The exam and treatment you received in the Emergency Department were for an urgent problem and are not intended as complete care. It is important that you follow up with a doctor, nurse practitioner, or physician?s phys assistant for ongoing care. If your symptoms become worse or you do not improve as expected and you are unable to reach your usual health care provider, you should return to the Emergency Department. We are available 24 hours a day. AVILA VALENZUELA has been given the following list of patient education materials, prescriptions and follow-up instructions: Follow-up Instructions: With: Address: When: RICHARD VARGAS [address] [place] [address] [facility] () In 3 days 04/20/2023 Comments: Follow-up with your primary care provider in 3 to 5 days. If symptoms worsen, do not improve, or new symptoms arise please report back to emergency department for further evaluation. In the event that this physician does not participate in your insurance network, please consult with your insurance company to find a nearby participating provider. Patient Education Materials: Head Injury, Adult A MESSAGE TO ALL PATIENTS REGARDING OPIOIDS PRESCRIPTION OPIOIDS: WHAT YOU NEED TO KNOW Prescription opioids can be used to help relieve fyfevzcc-wr-refxuv pain and are often prescribed following a surgery or injury, or for certain health conditions. These medications can be an important part of the treatment but also come with serious risks. It is important to work with your healthcare provider to make sure you are getting the safest, most effective care. WHAT ARE THE RISKS AND SIDE EFFECTS OF OPIOID USE? Prescription opioids carry serious risks of addiction and overdose, especially with prolonged use. An opioid overdose, often marked by slowed breathing, can cause sudden . The use of prescription opioids can have a number of side effects as well, even when taken as directed: ? Tolerance?meaning you might need to take more of the medication for the same pain relief ? Physical dependence?meaning you have symptoms of withdrawal when a medication is stopped ? Increased sensitivity to pain ? Constipation ? Nausea, vomiting, and dry mouth ? Sleepiness and dizziness ? Confusion ? Depression ? Low levels of testosterone that can result in lower sex drive, energy, and strength ? Itching and sweating RISKS ARE GREATER WITH: ? History of drug misuse, substance use disorder, or overdose ? Mental health conditions (such as depression or anxiety) ? Sleep apnea ? Older age (65 years and older) ? Avoid alcohol while taking prescription opioids. Also, unless specifically advised by your health care provider, medications to avoid include: ? Benzodiazepines (such as Xanax or Valium) ? Muscle relaxants (such as Soma or Flexeril) ? Hypnotics (such as Ambien or Lunesta) ? Other prescription opioids KNOW YOUR OPTIONS Talk to your health care provider about ways to manage your pain that don?t involve prescription opioids. Some of these options may actually work better and have fewer risks and side effects. Options may include: ? Pain relievers such as acetaminophen, ibuprofen, and naproxen ? Some medication that are also used for depression or seizures ? Physical therapy and exercise ? Cognitive behavioral therapy, a psychological, goal-directed approach, in which patients learn how to modify physical, behavioral, and emotional triggers of pain and stress. IF YOU ARE PRESCRIBED OPIOIDS FOR PAIN: ? Never take opioids in greater amounts or more often than prescribed. ? Follow up with your primary health care provider. o Work together to create a plan on how to manage your pain. o Talk about ways to help manage your pain that don?t involve prescription opioids. o Talk about any and all concerns and side effects. ? Help prevent misuse and abuse o Never sell or share prescription opioids. o Never use another person?s prescription opioids. ? Store prescription opioids in a secure place and out of reach of others (this may include visitors, children, friends, and family). ? Safely dispose of unused prescription opioids: Find your community drug take-back program or your pharmacy mail-back program, or flush them down the toilet, following guidance from the Food and Drug Administration (www.fda.gov/Drugs/ ResourcesForYou). ? Visit www.cdc.gov/drugove rdose to learn about the risks of opioids abuse and overdose. ? If you (more content not included)... Normal [facility] ED Traumaon 04-18-2023 ED Trauma [id number] Normal [facility] Monitor Recordon 04-18-2023 Monitor Record [id number]#1.00TIFF Normal [facility] Monitor Record [id number]#1.00TIFF Normal [facility] Monitor Record [id number]#1.00TIFF Normal [facility] RAD - Preliminary Cat Scan R eporton 04-18-2023 RAD - Preliminary Cat Scan Report [id number]#1.00TIFF Normal [facility] U Drug Screenon 04-18-2023 U Amph Scr Negative Invalid Interpretation Code [facility] Comment on above: Performed By: #### 2 [id number] ####[facility] [address] [place] [address] U Cookie Scr Negative Invalid Interpretation Code [facility] Comment on above: Performed By: #### 2 160859 ####[facility] [address] [place] [address] U Benzodia Scr Negative Invalid Interpretation Code [facility] Comment on above: Performed By: #### 2 842663 ####[facility] [address] [place] [address] U Cannab Scr Negative Invalid Interpretation Code [facility] Comment on above: Performed By: #### 2 958053 ####[facility] [address] [place] [address] U Cocaine Scr Negative Invalid Interpretation Code [facility] Comment on above: Performed By: #### 2 492709 ####[facility] [address] [facility] [place] [address] U Opiate Scr Negative Invalid Interpretation Code [facility] Comment on above: Performed By: #### 2 064937 ####[facility] [address] [facility] [place] [address] U PCP Scr Negative Invalid Interpretation Code [facility] Comment on above: Performed By: #### 2 064581 ####[facility] [address] [facility] [place] [address] ABO/Rhon 04-17-2023 ABO/Rh Positive Invalid Interpretation Code [facility] Comment on above: Performed By: #### 1 3982288, 0251857, 05276191, [id number] ####[facility] [address] [place] [address] ABSCon 04-17-2023 ABSC Gel Interp Negative Normal [facility] Comment on above: Performed By: #### 1 3504187, 0807628, 78626726, 19910856 ####[facility] [address] [place] [address] Auto Diffon 04-17-2023 Basophils/100 WBC (Bld) 1.2 % Normal 0.0-2.0 [facility] Comment on above: Order Comment: Order Added by Discern Expert. Performed By: #### 1 0059208, 7095526, 2525528, 2936071, 0280126, 7341127, 6247516, 53675172, 8748147 ####[facility] [address] [place] [address] Basophils/Leukocytes Auto (Bld) [Pure # fraction] 0.1 E9/L Normal 0.0-0.2 [facility] Comment on above: Order Comment: Order Added by Discern Expert. Performed By: #### 1 7599087, 2682502, 1927035, 4829528, 4186038, 3535022, 5933427, 62538610, 4394234 ####[place] [address] [place] [address] Eosinophils/100 WBC (Bld) 1.3 % Normal 0.0-8.0 [facility] Comment on above: Order Comment: Order Added by Discern Expert. Performed By: #### 1 1386094, 6382755, 3350621, 3803982, 7745763, 7643694, 2657762, 83789489, 4244043 ####[place] [address] [place] [address] Eosinophils/Leukocytes Auto (Bld) [Pure # fraction] 0.1 E9/L Normal 0.0-0.5 [facility] Comment on above: Order Comment: Order Added by Discern Expert. Performed By: #### 1 7006157, 3972716, 2030086, 7623468, 2842398, 6602824, 3248873, 07925774, 2099439 ####[address] [address] Lymphocytes/100 WBC (Bld) 23.6 % Normal 14.0-50.0 [facility] Comment on above: Order Comment: Order Added by Discern Expert. Performed By: #### 1 7170747, 1532222, 2601854, 2673707, 3420834, 9935118, 4547730, 90565895, 3374554 ####[address] [address] Lymphocytes/Leukocytes Auto (Bld) [Pure # fraction] 1.8 E9/L Normal 1.0-4.0 [facility] Comment on above: Order Comment: Order Added by Discern Expert. Performed By: #### 1 0123151, 4628733, 9290653, 1220675, 8264221, 7538313, 0926520, 81775249, 5597671 ####[place] [address] [place] [address] Monocytes/100 WBC (Bld) 10.1 % Normal 4.0-14.0 [facility] Comment on above: Order Comment: Order Added by Discern Expert. Performed By: #### 1 1177611, 2793833, 7501247, 1652106, 0792368, 3690224, 1522264, 69546210, 1628344 ####[place] [address] [place] [address] Monocytes/Leukocytes Auto (Bld) [Pure # fraction] 0.8 E9/L Normal 0.2-1.0 [facility] Comment on above: Order Comment: Order Added by Discern Expert. Performed By: #### 1 2934469, 9734872, 9121336, 8867014, 5912777, 5865681, 7470594, 09867604, 6507086 ####[place] [address] [place] [address] Neutrophils/100 WBC (Bld) 63.8 % Normal 36.0-75.0 [facility] Comment on above: Order Comment: Order Added by Discern Expert. Performed By: #### 1 7290583, 7281549, 1807552, 6930027, 1908573, 5612817, 4101814, 08765446, 9063703 ####[place] [address] [place] [address] Neutrophils/Leukocytes Auto (Bld) [Pure # fraction] 4.9 E9/L Normal 2.0-7.5 [facility] Comment on above: Order Comment: Order Added by Discern Expert. Performed By: #### 1 9334089, 4299313, 4665035, 8011486, 0554370, 5655443, 1876070, 34849447, 8638169 ####[place] [address] [place] [address] BLOOD BANKOrdered By: Karina Stafford on 04-17-2023 ABO/Rh Interp Positive Invalid Interpretation Code [facility] BB Subsection ABSC Gel Interp Negative (04/17/23 8:42 PM) Normal [facility] BB Subsection BMPon 04-17-2023 Anion gap [Moles/Vol] 14 mmol/L Normal 6-16 Fis [facility] Comment on above: Performed By: #### 1 5972615, 7391834, 2602616, 5903159, 1923755, 7452436, 1687560, 27527913, 8108422 ####[facility] [address] [place] [address] BUN/Creat Ratio 21 No Units High 10-20 [facility] Comment on above: Performed By: #### 1 3430547, 9147032, 0739677, 0097977, 5449109, 4020822, 9334178, 24073600, 9721210 ####[facility] [address] [place] [address] Calcium [Mass/Vol] 9.6 mg/dL Normal 8.9-11.1 [facility] Comment on above: Performed By: #### 1 1468653, 9422092, 9380918, 0492743, 2738022, 2719347, 4117874, 06214418, 9811231 ####[facility] [address] [place] [address] Chloride [Moles/Vol] 104 mmol/L Normal 101-111 [facility] Comment on above: Performed By: #### 1 9741293, 0471291, 5868514, 9632997, 5895788, 1314529, 6341108, 96481665, 5312255 ####[facility] [address] [place] [address] CO2 [Moles/Vol] 28 mmol/L Normal 21-31 [facility] Comment on above: Performed By: #### 1 8911355, 2112393, 8184415, 2738913, 3872165, 3053807, 5984211, 67981397, 3740600 ####[facility] [address] [place] [address] Creatinine [Mass/Vol] 1.7 mg/dL High 0.5-1.3 [facility] Comment on above: Performed By: #### 1 6173372, 9369641, 8989904, 2362862, 2713947, 4654094, 1231399, 11597128, 1524240 ####[facility] [address] [place] [address] Glucose [Mass/Vol] 135 mg/dL Normal 55-199 [facility] Comment on above: Performed By: #### 1 8544179, 0663516, 4348957, 8271624, 6496920, 3219389, 4946306, 37820171, 7553536 ####[facility] [address] [place] [address] Potassium [Moles/Vol] 3.7 mmol/L Normal 3.5-5.3 [facility] Comment on above: Performed By: #### 1 5964810, 8309015, 2225491, 2967425, 2153913, 2808186, 2526763, 80547252, 3192089 ####[facility] [address] [place] [address] Sodium [Moles/Vol] 142 mmol/L Normal 135-145 [facility] Comment on above: Performed By: #### 1 3312194, 8867347, 5690818, 4817186, 1729557, 2861334, 6580990, 55729496, 9619355 ####[facility] [address] [place] [address] Urea nitrogen [Mass/Vol] 36 mg/dL High 5-21 [facility] Comment on above: Performed By: #### 1 0506526, 8824591, 2492941, 6606768, 3118902, 4931776, 3243361, 16065779, 9325363 ####[facility] [address] [place] [address] Blood Bank ID#on 04-17-2023 BBID# [id number] Invalid Interpretation Code [facility] Comment on above: Performed By: #### 1 4921518, 0535871, 79574571, 53906905 ####[facility] [address] [place] [address] CBC w/ Auto Diffon Erythrocyte distribution width (RBC) [Ratio] 13.8 % Normal 10.9-14.2 [facility] Comment on above: Performed By: #### 1 3598828, 4731904, 6194236, 3201935, 9868347, 6890248, 2350837, 60016930, 3086521 ####[place] [address] [place] [address] Hematocrit (Bld) [Volume fraction] 31.5 % Low 34.0-46.0 [facility] Comment on above: Performed By: #### 1 2006758, 2065213, 5129668, 0468826, 5801023, 4636320, 2754137, 84094585, 3782131 ####[place] [address] Hemoglobin (Bld) [Mass/Vol] 10.1 g/dL Low 12.0-16.0 [facility] Comment on above: Performed By: #### 1 4369613, 8253230, 6086823, 7641059, 5430738, 7309511, 7781330, 84258117, 1042919 ####[place] [address] MCH (RBC) [Entitic mass] 29.4 pg Normal 27.0-34.0 [facility] Comment on above: Performed By: #### 1 5895251, 4318947, 6206254, 5431649, 0607222, 0652664, 6609645, 23538767, 9515452 ####[place] [address] MCHC (RBC) [Mass/Vol] 32.1 g/dL Normal 31.4-36.0 [facility] Comment on above: Performed By: #### 1 6429662, 9727521, 3691712, 4645259, 5527600, 4905024, 5088051, 48525723, 8921187 ####[address] [address] MCV (RBC) [Entitic vol] 91.4 fL Normal 80.0-100.0 [facility] Comment on above: Performed By: #### 1 0379330, 7829469, 5603574, 8263122, 2920090, 7163526, 3676400, 67597544, 7099961 ####[facility] [address] [place] [address] Platelet mean volume (Bld) [Entitic vol] 8.9 fL Normal 6.4-10.8 [facility] Comment on above: Performed By: #### 1 2004900, 1709533, 6782906, 4211140, 8647401, 8934849, 8632813, 86314697, 2026470 ####[place] [address] [place] [address] Platelets (Bld) [#/Vol] 271.0 E9/L Normal 150.0-500.0 [facility] Comment on above: Performed By: #### 1 3226708, 2018797, 6603127, 1243284, 8973128, 2097665, 3817638, 09456060, 8529549 ####[address] [address] RBC (Bld) [#/Vol] 3.4 E12/L Low 4.3-5.9 [facility] Comment on above: Performed By: #### 1 5229356, 4624506, 8226566, 6909504, 4165712, 6564192, 9022926, 29130120, 4759143 ####[place] [address] [place] [address] WBC corrected for nucl RBC Auto (Bld) [#/Vol] 7.7 E9/L Normal 4.0-11.0 [facility] Comment on above: Performed By: #### 1 1777035, 6389042, 4079143, 1507559, 6865157, 1890700, 4914640, 06827317, 5298672 ####[place] [address] [place] [address] CHEMISTRYOrdered By: Autumn Renteria on 04-17-2023 U Amph Scr Negative Invalid Interpretation Code Remisol Chem U Cookie Scr Negative Invalid Interpretation Code Remisol Chem U Benzodia Scr Negative Invalid Interpretation Code Remisol Chem U Cannab Scr Negative Invalid Interpretation Code Remisol Chem U Cocaine Scr Negative Invalid Interpretation Code Remisol Chem U Opiate Scr Negative Invalid Interpretation Code Remisol Chem U PCP Scr Negative Invalid Interpretation Code Remisol Chem CHEMISTRYOrdered By: SYSTEM SYSTEM on 04-17-2023 Albumin [Mass/Vol] 4.1 g/dL Normal 3.3 - 5.0 gm/dL Rem[facility] Chem Albumin/Globulin [Mass ratio] 1.2 {ratio} Normal 1.1 - 2.2 [facility] Alk Phos 68 [iU]/d Normal 21 - 98 Int._Unit/L Remisol Chem ALT 14 [iU]/d Normal 6 - 46 Int._Unit/L [facility] Chem Anion gap [Moles/Vol] 14 mmol/L Normal 6 - 16 mEq/L R emisol Chem AST 14 [iU]/d Normal 5 - 43 Int._Unit/L Remisol Chem Bili Direct 0.2 mg/dL Normal 0.0 - 0.4 mg/dL [facility] Bili Indirect 0.6 mg/dL Normal 0.1 - 0.9 mg/dL [facility] Chem Bili Total 0.8 mg/dL Normal 0.0 - 1.1 mg/dL [facility] Calcium [Mass/Vol] 9.6 mg/dL Normal 8.9 - 11. 1 mg/dL [facility] Chloride [Moles/Vol] 104 mmol/L Normal 101 - 1 11 mmol/L [facility] CO2 [Moles/Vol] 28 mmol/L Normal 21 - 31 mmol/L [facility] Creatinine [Mass/Vol] 1.7 mg/dL High 0.5 - 1.3 mg/dL [facility] eGFR 31 mL/min/1.73 m2 Low >=59mL/min /1. 73 m2 Remisol Chem Ethanol Lvl 83 mg/dL Invalid Interpretation Code <=7mg/dL [facility] Comment on above: Result Comment: Crit ical Result [id number] Called to and read back by: TAI BARBA at: 04/17/2023 21:19:24 by:CADY RENTERIA Critical Result Verified by Repeat Analysis Globulin (S) [Mass/Vol] 3.4 g/dL Normal 1.4 - 4.0 gm/dL [facility] Glucose [Mass/Vol] 135 mg/dL Normal 55 - 199 mg/dL [facility] Lactic Acid Lvl 2.1 mmol/L Normal 0.5 - 2.2 mmol/L [facility] Lipase Lvl 235 unit/L High 13 - 58 unit/L [facility] Potassium [Moles/Vol] 3.7 mmol/L Normal 3.5 - 5.3 mmol/L [facility] Protein [Mass/Vol] 7.5 g/dL Normal 6.0 - 7.8 gm/dL [facility] Sodium [Moles/Vol] 142 mmol/L Normal 135 - 145 mmol/L [facility] Troponin 8.90 pg/mL Low 10.10 - 27.10 pg/mL [facility] Comment on above: Interpretive Data: T he 95% CI (Confidence Interval) PPV (Positive Predictive Value) for myocardial infarction in females is 38 pg/mL, in males 51 pg/mL. The results should be used in conjunction with clinical conditions of myocardial infarction. (Access High Sensitivity Troponin I Instructions For Use, Jessica Jarrett, November 2017) Urea nitrogen [Mass/Vol] 36 mg/dL High 5 - 21 mg/dL [facility] Urea nitrogen/Creatinine [Mass ratio] 21 mg/mg High 10 - 20 [facility] COAGULATIONOrdered By: Hansa Grigsby on 04-17-2023 aPTT Coag (PPP) [Time] 32.6 s Normal 25.1 - 36.5 second(s) [facility] Auto Coag Comment on above: Interpretive Data: P arameter 15 days - 4 weeks 1 - 5 months 6 - 11 months 1 - 5 years 6 - 10 years 11 - 17 years PTT Mean: 35.4 (27.6-45.6) Mean: 33.5 (24.8-40.7) Mean: 32.4 (25.1-40.7) Mean: 31.6 (24.0-39.2) Mean: 31.6 (26.9-38.7) Mean: 31.0 (24.6-38.4) Pediatric Reference ranges were obtained from a study by Al Caldera et al. prepared from 1437 samples obtained at 7 different centers using the same coagulation reagent and instrumentation as [facility]. Currently there are no coagulation studies available worldwide for children to 14 days, and no normal ranges. Heparin therapeutic range (represented by Anti-Factor Xa activity of 0.2 - 0.4 U/mL) corresponds to PTT of 56.6 - 109.0 sec. INR Coag (PPP) [Relative time] 1.2 {INR} Invalid Interpretation Code [facility] Auto Coag Comment on above: Interpretive Data: I NR results are specifically intended to assess patients stabilized on long-term Anticoagulation therapy suggested INR s Less Intensive Anticoagulation 2.0 3.0 Conventional Range 3.0 4.5 PT Coag (PPP) [Time] 13.1 s High 9.4 - 1 2.5 second(s) [facility] Auto Coag Comment on above: Interpretive Data: 1 5 days - 4 weeks 1 - 5 months 6 -11 months 1 5 years 6 10 years 11 -17 years Mean: 11.2 (9.5 12.6) Mean: 11.0 (9.7 12.8) Mean: 11.0 (9.8 13.0) Mean: 11.3 (9.9 13.4) Mean: 11.7 (10.0 14.6) Mean: 11.8 (10.0 - 14.1) Pediatric Reference ranges were obtained from a study by Al Caldera et al. prepared from 1437 samples obtained at 7 different centers using the same coagulation reagent and instrumentation as [facility]. Currently there are no coagulation studies available worldwide for children to 14 days, and no normal ranges. Consent for Treatmenton 03-28 Consent for Treatment [id number] 32#1.00TIFF Normal [facility] [facility] Ethanolon 04-17-2023 Ethanol Lvl 83 mg/dL Abnormal <=7 [facility] Comment on above: Result Comment: Crit ical Result S_ETOH:83 Called to and read back by: TAI BARBA at: 04/17/2023 21:19:24 by:CADY RENTERIA Critical Result Verified by Repeat Analysis Performed By: #### 2 [id number] ####[facility] [address] [place] [address] HEMATOLOGYOrdered By: SYSTEM SYSTEM on 04-17-2023 Basophils/100 WBC (Bld) 1.2 % Normal 0.0 - 2.0 % [facility]Auto[facility] Basophils/Leukocytes Auto (Bld) [Pure # fraction] 0.1 E9/L Normal 0.0 - 0.2 E9/L [facility] Eosinophils/100 WBC (Bld) 1.3 % Normal 0.0 - 8.0 % [facility]Auto[facility] Eosinophils/Leukocytes Auto (Bld) [Pure # fraction] 0.1 E9/L Normal 0.0 - 0.5 E9/L [facility] Lymphocytes/100 WBC (Bld) 23.6 % Normal 14.0 - 50.0 % [facility]Auto[facility] Lymphocytes/Leukocytes Auto (Bld) [Pure # fraction] 1.8 E9/L Normal 1.0 - 4.0 E9/L [facility] Monocytes/100 WBC (Bld) 10.1 % Normal 4.0 - 14.0 % [facility]Auto[facility] Monocytes/Leukocytes Auto (Bld) [Pure # fraction] 0.8 E9/L Normal 0.2 - 1.0 E9/L [facility] Neutrophils/100 WBC (Bld) 63.8 % Normal 36.0 - 75.0 % [facility] Neutrophils/Leukocytes Auto (Bld) [Pure # fraction] 4.9 E9/L Normal 2.0 - 7.5 E9/L [facility] HEMATOLOGYOrdered By: Karina Stafford on 04-17-2023 Erythrocyte distribution width (RBC) [Ratio] 13.8 % Normal 10.9 - 14.2 % [facility] Hematocrit (Bld) [Volume fraction] 31.5 % Low 34.0 - 46.0 % [facility] Hemoglobin (Bld) [Mass/Vol] 10.1 g/dL Low 12.0 - 16.0 gm/dL [facility] MCH (RBC) [Entitic mass] 29.4 pg Normal 27.0 - 34.0 pg [facility] MCHC (RBC) [Mass/Vol] 32.1 g/dL Normal 31.4 - 36.0 gm/dL [facility] MCV (RBC) [Entitic vol] 91.4 fL Normal 80.0 - 100.0 fL [facility] Platelet mean volume (Bld) [Entitic vol] 8.9 fL Normal 6.4 - 10.8 fL [facility] HemeAutoSS Platelets (Bld) [#/Vol] 271.0 E9/L Normal 150.0 - 500.0 E9/L [facility]eAutoSS RBC (Bld) [#/Vol] 3.4 E12/L Low 4.3 - 5.9 E12/L [facility] HemeAutoSS WBC corrected for nucl RBC Auto (Bld) [#/Vol] 7.7 E9/L Normal 4.0 - 11.0 E9/L [facility] Hep Func Panelon 04-17-2023 Albumin [Mass/Vol] 4.1 g/dL Normal 3.3-5.0 [facility] Comment on above: Performed By: #### 1 [id number], 8583450, 4583780, 2280625, 3156126, 7035162, 4573013, 39929364, 9897799 ####[address] [place] [address] Albumin/Globulin [Mass ratio] 1.2 {ratio} Normal 1.1-2.2 [facility] Comment on above: Performed By: #### 1 [id number], 2716619, 7460348, 6605467, 1935688, 5000584, 9094879, 96719896, 2615526 ####[facility] [address] [place] [address] Alk Phos 68 Int._Unit/L Normal 21-98 [facility] Comment on above: Performed By: #### 1 [id number], 0817756, 8039539, 1468235, 0502845, 5315553, 1329625, 16189993, 2642378 ####[facility] [address] [place] [address] ALT 14 Int._Unit/L Normal 6-46 [facility] Comment on above: Performed By: #### 1 9286819, 9585348, 5874852, 1662106, 5171902, 4682808, 6332933, 52538256, 1291857 ####[facility] [address] [place] [address] AST 14 Int._Unit/L Normal 5-43 [facility] Comment on above: Performed By: #### 1 8584504, 3218251, 8289268, 8695989, 2753005, 1209352, 0703175, 74734045, 6322705 ####[facility] [address] [place] [address] Bili Direct 0.2 mg/dL Normal 0.0-0.4 [facility] Comment on above: Performed By: #### 1 1520969, 0599696, 9747042, 8781496, 5418158, 3759466, 6893504, 87491530, 4894092 ####[facility] [address] [place] [id number] Bili Indirect 0.6 mg/dL Normal 0.1-0.9 [facility] Comment on above: Performed By: #### 1 0564123, 4338613, 6174042, 6215642, 1311640, 3833146, 1395056, 53236856, 0360428 ####[address] [address] Bili Total 0.8 mg/dL Normal 0.0-1.1 [facility] Comment on above: Performed By: #### 1 4444190, 5740155, 6041119, 2035335, 2487891, 3633349, 2811125, 78513872, 1700998 ####[facility] [address] [place] [id number] Globulin (S) [Mass/Vol] 3.4 g/dL Normal 1.4-4.0 [facility] Comment on above: Performed By: #### 1 1424029, 1853673, 8890275, 3573667, 0815264, 4769661, 2890117, 36450371, 1877883 ####[address] [place] [address] Protein [Mass/Vol] 7.5 g/dL Normal 6.0-7.8 [facility] Comment on above: Performed By: #### 1 4952863, 9105437, 0574288, 2501877, 2026477, 0121999, 2866212, 92033017, 4023370 ####[facility] [address] [place] [address] Lactic Acidon 04-17-2023 Lactic Acid Lvl 2.1 mmol/L Normal 0.5-2.2 [facility] Comment on above: Performed By: #### 1 0572915, 1380714, 7868737, 7096962, 5158502, 4814030, 2216821, 36360978, 8538227 ####[facility] [address] [place] [address] Lipase Levelon 04-17-2023 Lipase Lvl 235 unit/L High 13-58 [facility] Comment on above: Performed By: #### 1 3341355, 7355065, 6832854, 9504766, 9771713, 3034254, 0052862, 73767173, 3841381 ####[facility] [address] [place] [address] PT & PTTon 04-17-2023 aPTT Coag (PPP) [Time] 32.6 second(s) Normal 25.1-36.5 [facility] Comment on above: Result Comment: Para meter 15 days - 4 weeks 1 - 5 months 6 - 11 months 1 - 5 years 6 - 10 years 11 - 17 years PTT Mean: 35.4 (27.6-45.6) Mean: 33.5 (24.8-40.7) Mean: 32.4 (25.1-40.7) Mean: 31.6 (24.0-39.2) Mean: 31.6 (26.9-38.7) Mean: 31.0 (24.6-38.4) Pediatric Reference ranges were obtained from a study by Al Caldera et al. prepared from 1437 samples obtained at 7 different centers using the same coagulation reagent and instrumentation as [facility]. Currently there are no coagulation studies available worldwide for children to 14 days, and no normal ranges. Heparin therapeutic range (represented by Anti-Factor Xa activity of 0.2 - 0.4 U/mL) corresponds to PTT of 56.6 - 109.0 sec. Performed By: #### 1 6948550, 2905552, 7113146, 7172096, 5827128, 1122461, 3117847, 53693566, 8593211 ####[facility] [address] [place] [address] INR Coag (PPP) [Relative time] 1.2 {INR} Invalid Interpretation Code [facility] Comment on above: Result Comment: INR results are specifically intended to assess patients stabilized on long-term Anticoagulation therapy suggested INR?s ?Less Intensive Anticoagulation? 2.0 ? 3.0 Conventional Range 3.0 ? 4.5 Performed By: #### 1 5614309, 5644476, 2698933, 0997422, 5380191, 0599877, 6561899, 31508223, 8016683 ####[facility] [address] [place] [address] PT Coag (PPP) [Time] 13.1 second(s) High 9.4-12.5 [facility] Comment on above: Result Comment: 15 d ays - 4 weeks 1 - 5 months 6 -11 months 1 ? 5 years 6 ? 10 years 11 -17 years Mean: 11.2 (9.5 ? 12.6) Mean: 11.0 (9.7 ? 12.8) Mean: 11.0 (9.8 ? 13.0) Mean: 11.3 (9.9 ? 13.4) Mean: 11.7 (10.0 ? 14.6) Mean: 11.8 (10.0 - 14.1) Pediatric Reference ranges were obtained from a study by Al Caldera et al. prepared from 1437 samples obtained at 7 different centers using the same coagulation reagent and instrumentation as [facility]. Currently there are no coagulation studies available worldwide for children to 14 days, and no normal ranges. Performed By: #### 1 [id number], 5414688, 4815675, 1161512, 9093246, 5678879, 8624139, 86590824, 1404780 ####[facility] [address] [place] [address] Pre-Arrival Noteon 3 Pre-Arrival Note Pre-Arrival Summary Name: BEA Current Date: 04/17/2023 20:28:42 EST Gender: Female Date of : Age: 73 Pre-Arrival Type: EMS ETA: 04/17/2023 20:52:00 EST Primary Care Physician: Presenting Problem: Fall, Hit head Pre-Arrival User: Bernadine Littlejohn RN Referring Source: Location: [place] Completion Date/Time: 04/17/2023 20:22:00 [facility] Emergency Department Pre-Hospital Report Form ___ Vital Signs: 107/54, 80HR, 97% RA Pre-Hospital Report: Fall, Hit head on table Treatment in Route: 2LAC Response to Treatment: Misc. Issues: Normal [facility] Troponinon 04-17-2023 Troponin 8.90 pg/mL Low 10.10-27.10 [facility] Comment on above: Result Comment: The 95% CI (Confidence Interval) PPV (Positive Predictive Value) for myocardial infarction in females is 38 pg/mL, in males 51 pg/mL. The results should be used in conjunction with clinical conditions of myocardial infarction. (Access High Sensitivity Troponin I Instructions For Use, Jessica Jarrett, November 2017) Performed By: #### 1 [id number], 6809523, 4824350, 4640375, 8576790, 0754204, 8697995, 57696552, 2614175 ####[facility] [address] [place] [address] eGFRon 04-17-2023 eGFR 31 mL/min/1.73 m2 Low >=59 [facility] Comment on above: Order Comment: Order added by Discern Expert. Performed By: #### 1 2403340, 2356024, 2491530, 9927697, 2338041, 3299748, 5182021, 11807984, 6074351 ####[facility] [address] [place] [address] GLYCOHEMOGLOBIN A1Con 2022 ADA RECOMMENDATION SEE BELOW Normal [facility] Comment on above: Result Comment: ADA RECOMMENDED LIMIT 4.0 - 6.0 ADA THERAPEUTIC TARGET < 7.0 ACTION SUGGESTED > 7.0 Performed By: #### A 1C #### [facility] [address] [place] [address] Dr. Vanessa Denis Glucose [Mass/Vol] 223 mg/dL Normal [facility] Comment on above: Performed By: #### A 1C #### [facility] [address] [place] [address] Dr. Vanessa Denis HbA1c (Bld) [Mass fraction] 9.4 % Critically high 4.5-6.2 [facility] Comment on above: Performed By: #### A 1C #### [facility] [address] [place] [address] Dr. Vanessa Denis PROF 14(COMP METB)on 023 Albumin [Mass/Vol] 3.4 g/dL Normal 3.4-5.0 [facility] Comment on above: Performed By: #### C MP #### [facility] [address] [place] [address] Dr. Vanessa Denis Albumin/Globulin [Mass ratio] 0.8 {ratio} Normal [facility] Comment on above: Performed By: #### C MP #### [facility] [address] [place] [address] Dr. Vanessa Denis ALP [Catalytic activity/Vol] 71 U/L Normal 46-116 [facility] Comment on above: Performed By: #### C MP #### [facility] [address] [place] [address] Dr. Vanessa Denis ALT [Catalytic activity/Vol] 25 U/L Normal 14-59 [facility] Comment on above: Performed By: #### C MP #### [facility] [address] [place] [address] Dr. Vanessa Denis Anion gap [Moles/Vol] 6.7 mmol/L Normal [facility] Comment on above: Performed By: #### C MP #### [facility] [address] [address] [address] Vanessa Denis AST [Catalytic activity/Vol] 19 U/L Normal 15-37 [facility] Comment on above: Performed By: #### C MP #### [facility] [address] [address] [address] Vanessa Denis Bilirubin [Mass/Vol] 0.9 mg/dL Normal 0.2-1.0 [facility] Comment on above: Performed By: #### C MP #### [facility] [address] [address] [address] Vanessa Denis Calcium [Mass/Vol] 9.5 mg/dL Normal 8.5-10.1 [facility] Comment on above: Performed By: #### C MP #### [facility] [address] [address] [address] Vanessa Denis Chloride [Moles/Vol] 102 mmol/L Normal 98-107 [facility] Comment on above: Performed By: #### C MP #### [facility] [address] [address] [address] Vanessa Denis CO2 [Moles/Vol] 35.2 mmol/L Critically high 21.0-32.0 [facility] Comment on above: Performed By: #### C MP #### [facility] [address] [address] [address] Vanessa Denis Creatinine [Mass/Vol] 1.23 mg/dL Critically high 0.55-1.02 [facility] Comment on above: Performed By: #### C MP #### [facility] [address] [address] [address] Vanessa Denis EGFR-AF SAMOAN 52 mL/min/1.73m2 Critically low >=60 [facility] Comment on above: Performed By: #### C MP #### [facility] [address] [address] [address] Vanessa Denis EGFR-NON AF SAMOAN 43 mL/min/1.73m2 Critically low >=60 [facility] Comment on above: Performed By: #### C MP #### [facility] [address] [address] [address] Vanessa Denis Globulin (S) [Mass/Vol] 4.1 g/dL Normal [facility] Comment on above: Performed By: #### C MP #### [facility] [address] [address] [address] Vanessa Denis Glucose [Mass/Vol] 267 mg/dL Critically high 74-106 [facility] Comment on above: Performed By: #### C MP #### [facility] [address] [address] [address] Vanessa Denis Potassium [Moles/Vol] 4.9 mmol/L Normal 3.5-5.1 [facility] Comment on above: Performed By: #### C MP #### [facility] [address] [address] [address] Vanessa Denis Protein [Mass/Vol] 7.5 g/dL Normal 6.4-8.2 [facility] Comment on above: Performed By: #### C MP #### [facility] [address] [address] [address] Vanessa Denis Sodium [Moles/Vol] 139 mmol/L Normal 136-145 [facility] Comment on above: Performed By: #### C MP #### [facility] [address] [address] [address] Vanessa Denis Urea nitrogen [Mass/Vol] 26.0 mg/dL Critically high 7.0-18.0 [facility] Comment on above: Performed By: #### C MP #### [facility] [address] [address] [address] Vanessa Denis Urea nitrogen/Creatinine [Mass ratio] 21.1 mg/mg Normal [facility] Comment on above: Performed By: #### C MP #### [facility] [address] [place] [address] Dr. Vanessa Denis CTA CHEST WO W CONon 023 CTA CHEST WO W CON EXAMINATION: CTA CHEST WO W CON HISTORY: Hypoxemia COMPARISON: No [...] by: TWYLA CONTEH Date: 2022-05-30 14:23 Normal [facility] GLYCOHEMOGLOBIN A1Con 2022 ADA RECOMMENDATION SEE BELOW Normal [facility] Comment on above: Result Comment: ADA RECOMMENDED LIMIT 4.0 - 6.0 ADA THERAPEUTIC TARGET < 7.0 ACTION SUGGESTED > 7.0 Performed By: #### A 1C #### [facility] [address] [place] [address] Dr. Vanessa Denis Glucose [Mass/Vol] 203 mg/dL Normal [facility] Comment on above: Performed By: #### A 1C #### [facility] [address] [place] [address] Dr. Vanessa Denis HbA1c (Bld) [Mass fraction] 8.7 % Critically high 4.5-6.2 [facility] Comment on above: Performed By: #### A 1C #### [facility] [address] [place] [address] Dr. Vanessa Denis HEMOGRAM AND PLATELon 2022 Hematocrit (Bld) [Volume fraction] 45.4 % Normal 36.0-48.0 [facility] Comment on above: Performed By: #### H H #### [facility] [address] [place] [address] Dr. Vanessa Denis Hemoglobin (Bld) [Mass/Vol] 14.5 g/dL Normal 12.0-16.0 [facility] Comment on above: Performed By: #### H H #### [facility] [address] [place] [address] Dr. Vanessa Denis MCH (RBC) [Entitic mass] 29.0 pg Normal 26.7-34.0 [facility] Comment on above: Performed By: #### H H #### [facility] [address] [place] [address] Dr. Vanessa Denis MCHC (RBC) [Mass/Vol] 31.9 g/dL Normal 29.9-35.2 [facility] Comment on above: Performed By: #### H H #### [facility] [address] [place] [address] Dr. Vanessa Denis MCV (RBC) [Entitic vol] 90.8 fL Normal 81.0-99.0 [facility] Comment on above: Performed By: #### H H #### [facility] [address] [place] [address] Dr. Vanessa Denis PLT 164 103/ul Normal 150-450 [facility] Comment on above: Performed By: #### H H #### [facility] [address] [place] [address] Dr. Vanessa Denis RBC 5.00 106/ul Normal 4.20-5.40 [facility] Comment on above: Performed By: #### H H #### [facility] [address] [place] [address] Dr. Vanessa Denis WBC 7.6 103/ul Normal 4.0-11.0 [facility] Comment on above: Performed By: #### H H #### [facility] [address] [place] [address] Dr. Vanessa Denis LIPID PROFILEon 05-30-2022 CHOL-HDL RATIO NORM SEE BELOW Normal [facility] Comment on above: Result Comment: 3.3 - 4.4 LOW RISK 4.4 - 7.1 AVERAGE RISK 7.1 - 11.0 MODERATE RISK >11.0 HIGH RISK Performed By: #### L IPID, TSH #### [facility] [address] [place] [address] Dr. Vanessa Denis Cholesterol [Mass/Vol] 110 mg/dL Normal <=200 [facility] Comment on above: Performed By: #### L IPID, TSH #### [facility] [address] [address] [address] Vanessa Denis Cholesterol in HDL [Mass/Vol] 51 mg/dL Normal 40-60 [facility] Comment on above: Performed By: #### L IPID, TSH #### [facility] [address] [address] [address] Vanessa Denis Cholesterol in LDL [Mass/Vol] 39.4 mg/dL Normal [facility] Comment on above: Performed By: #### L IPID, TSH #### [facility] [address] [address] [address] Vanessa Denis Cholesterol.total/Chol esterol in HDL [Mass ratio] 2.2 {ratio} Normal [facility] Comment on above: Performed By: #### L IPID, TSH #### [facility] [address] [address] [address] Vanessa Denis HDL NORMAL > or = 60 mg/dl - LOW CARDIOVASCULAR RISK <40 mg/dl - HIGH CARDIOVASCULAR RISK Normal [facility] Comment on above: Performed By: #### L IPID, TSH #### [facility] [address] [address] [address] Vanessa Denis LDL CALC NORMAL SEE BELOW Normal [facility] Comment on above: Result Comment: <100 mg/dl OPTIMAL 100 - 129 mg/dl NEAR OR ABOVE OPTIMAL 130 - 159 mg/dl BORDERLINE HIGH 160 - 189 mg/dl HIGH >190 mg/dl VERY HIGH Performed By: #### L IPID, TSH #### [facility] [address] [address] [address] Vanessa Denis Triglyceride [Mass/Vol] 98 mg/dL Normal <=150 [facility] Comment on above: Performed By: #### L IPID, TSH #### [facility] [address] [address] [address] Vanessa Denis VLDL CALC 19.6 mg/dL Normal [facility] Comment on above: Performed By: #### L IPID, TSH #### [facility] [address] [address] [address] Vanessa Denis PROF 14(COMP METB)on 023 Albumin [Mass/Vol] 3.4 g/dL Normal 3.4-5.0 [facility] Comment on above: Performed By: #### C MP #### [facility] [address] [place] [address] Dr. Vanessa Denis Albumin/Globulin [Mass ratio] 0.9 {ratio} Normal [facility] Comment on above: Performed By: #### C MP #### [facility] [address] [place] [address] Dr. Vanessa Denis ALP [Catalytic activity/Vol] 68 U/L Normal 46-116 [facility] Comment on above: Performed By: #### C MP #### [facility] [address] [place] [address] Dr. Vanessa Denis ALT [Catalytic activity/Vol] 23 U/L Normal 14-59 [facility] Comment on above: Performed By: #### C MP #### [facility] [address] [place] [address] Dr. Vanessa Denis Anion gap [Moles/Vol] 10.1 mmol/L Normal [facility] Comment on above: Performed By: #### C MP #### [facility] [address] [place] [address] Dr. Vanessa Denis AST [Catalytic activity/Vol] 21 U/L Normal 15-37 [facility] Comment on above: Performed By: #### C MP #### [facility] [address] [place] [address] Dr. Vanessa Denis Bilirubin [Mass/Vol] 0.9 mg/dL Normal 0.2-1.0 [facility] Comment on above: Performed By: #### C MP #### [facility] [address] [place] [address] Dr. Vanessa Denis Calcium [Mass/Vol] 9.2 mg/dL Normal 8.5-10.1 [facility] Comment on above: Performed By: #### C MP #### [facility] [address] [address] [address] Vanessa Denis Chloride [Moles/Vol] 101 mmol/L Normal 98-107 [facility] Comment on above: Performed By: #### C MP #### [facility] [address] [address] [address] Vanessa Denis CO2 [Moles/Vol] 31.5 mmol/L Normal 21.0-32.0 [facility] Comment on above: Performed By: #### C MP #### [facility] [address] [address] [address] Vanessa Denis Creatinine [Mass/Vol] 1.15 mg/dL Critically high 0.55-1.02 [facility] Comment on above: Performed By: #### C MP #### [facility] [address] [place] [address] Dr. Vanessa Denis EGFR-AF SAMOAN 56 mL/min/1.73m2 Critically low >=60 [facility] Comment on above: Performed By: #### C MP #### [facility] [address] [address] [address] Vanessa Denis EGFR-NON AF SAMOAN 46 mL/min/1.73m2 Critically low >=60 [facility] Comment on above: Performed By: #### C MP #### [facility] [address] [address] [address] Vanessa Denis Globulin (S) [Mass/Vol] 4.0 g/dL Normal [facility] Comment on above: Performed By: #### C MP #### [facility] [address] [address] [address] Vanessa Denis Glucose [Mass/Vol] 254 mg/dL Critically high 74-106 [facility] Comment on above: Performed By: #### C MP #### [facility] [address] [address] [address] Vanessa Denis Potassium [Moles/Vol] 4.6 mmol/L Normal 3.5-5.1 [facility] Comment on above: Performed By: #### C MP #### [facility] [address] [address] [address] Vanessa Denis Protein [Mass/Vol] 7.4 g/dL Normal 6.4-8.2 [facility] Comment on above: Performed By: #### C MP #### [facility] [address] [address] [address] Vanessa Denis Sodium [Moles/Vol] 138 mmol/L Normal 136-145 [facility] Comment on above: Performed By: #### C MP #### [facility] [address] [address] [address] Vanessa Denis Urea nitrogen [Mass/Vol] 24.0 mg/dL Critically high 7.0-18.0 [facility] Comment on above: Performed By: #### C MP #### [facility] [address] [address] [address] Vanessa Denis Urea nitrogen/Creatinine [Mass ratio] 20.9 mg/mg Normal [facility] Comment on above: Performed By: #### C MP #### [facility] [address] [address] [address] Vanessa Denis TSHon 05-30-2022 TSH 2.067 uIU/mL Normal 0.358-3.740 [facility] Comment on above: Performed By: #### L IPID, TSH #### [facility] [address] [address] [address] Vanessa Denis Vital Signs Date Time Vital Sign Value Performing Clinician Facility 04-18-2023 00:39-0500 Diastolic blood pressure 95 mm[Hg] blinkbox musicylinn Dokken [facility] 04-18-2023 00:39-0500 Heart rate 74 /min PenteoSurroundn ByteShieldkkjarrod [facility] 04-18-2023 00:39-0500 Mean blood pressure 117 mm[Hg] blinkbox musicadolfon Dokken [facility] 04-18-2023 00:39-0500 Respiratory rate 22 /min blinkbox musicylinn Dokken [facility] 04-18-2023 00:39-0500 SaO2% (BldA) [Mass fraction] 97 % Kaylinn Dokken [facility] 04-18-2023 00:39-0500 Systolic blood pressure 161 mm[Hg] Kaylinn Dokken [facility] 04-17-2023 23:43-0500 Diastolic blood pressure 71 mm[Hg] Kaylinn Dokken [facility] 04-17-2023 23:43-0500 Heart rate 63 /min Kaylinn Dokken [facility] 04-17-2023 23:43-0500 Mean blood pressure 98 mm[Hg] Kaylinn Dokken [facility] 04-17-2023 23:43-0500 Respiratory rate 15 /min Kaylinn Dokken [facility] 04-17-2023 23:43-0500 SaO2% (BldA) [Mass fraction] 96 % Kaylinn Dokken [facility] 04-17-2023 23:43-0500 Systolic blood pressure 151 mm[Hg] Kaylinn Dokken [facility] 04-17-2023 23:23-0500 Body temperature 97.88 [degF] Kaylinn Dokken [facility] 04-17-2023 23:23-0500 Diastolic blood pressure 82 mm[Hg] Kaylinn Dokken [facility] 04-17-2023 23:23-0500 Heart rate 68 /min Kaylinn Dokken [facility] 04-17-2023 23:23-0500 Mean blood pressure 99 mm[Hg] Kaylinn Dokken [facility] 04-17-2023 23:23-0500 Respiratory rate 20 /min Kaylinn Dokken [facility] 04-17-2023 23:23-0500 SaO2% (BldA) [Mass fraction] 94 % Kaylinn Dokken [facility] 04-17-2023 23:23-0500 Systolic blood pressure 134 mm[Hg] Kaylinn Dokken [facility] 04-17-2023 22:39-0500 Respiratory rate 18 /min Kaylinn Dokken [facility] 04-17-2023 21:50-0500 Respiratory rate 18 /min Kaylinn Dokken [facility] 04-17-2023 20:50-0500 Body temperature 98.06 [degF] Kaylinn Dokken [facility] 04-17-2023 20:50-0500 Heart rate 72 /min Kaylinn Dokken [facility] 04-17-2023 20:50-0500 Respiratory rate 18 /min Kaylinn Dokken [facility] 04-17-2023 20:29-0500 Body temperature 98.06 [degF] Kaylinn Dokken [facility] 04-17-2023 20:29-0500 Heart rate 76 /min Kaylinn Dokken [facility] 02-23-2023 13:40-0400 Body height 152.4 cm Nicolás Maura Other [facility] 02-23-2023 13:40-0400 Body mass index (BMI) [Ratio] 34.72 kg/m2 Nicolás Maura Other [facility] 02-23-2023 13:40-0400 Body temperature 96.8 [degF] Nicolás Maura Other [facility] 02-23-2023 13:40-0400 Body weight 80.65 kg Nicolás Maura Other [facility] 02-23-2023 13:40-0400 Diastolic blood pressure 82 mm[Hg] Nicolás Maura Other [facility] 02-23-2023 13:40-0400 Respiratory rate 20 /min Nicolás Maura Other [facility] 02-23-2023 13:40-0400 SaO2% (BldA) [Mass fraction] 99 % Nicolás Maura Other [facility] 02-23-2023 13:40-0400 Systolic blood pressure 132 mm[Hg] Nicolás Maura Other [facility] 12-31-2022 09:00-0400 Body height 152.4 cm Nicolás Maura Other [facility] 12-31-2022 09:00-0400 Body mass index (BMI) [Ratio] 32.14 kg/m2 Nicolás Maura Other [facility] 12-31-2022 09:00-0400 Body temperature 96.3 [degF] Nicolás Maura Other [facility] 12-31-2022 09:00-0400 Body weight 74.66 kg Nicolás Maura Other [facility] 12-31-2022 09:00-0400 Diastolic blood pressure 56 mm[Hg] Nicolás Maura Other [facility] 12-31-2022 09:00-0400 Respiratory rate 20 /min Nicolás Maura Other [facility] 12-31-2022 09:00-0400 SaO2% (BldA) [Mass fraction] 98 % Nicolás Maura Other [facility] 12-31-2022 09:00-0400 Systolic blood pressure 91 mm[Hg] Nicolás Maura Other [facility] Other Encounters Encounter Date Encounter Type Care Provider Facility Start: 04-17-2023 End: 04-18-2023 Emergency department patient visit Nancy Sadler Dojuliajarrod Facility[place] Start: 04-17-2023 End: 04-18-2023 Emergency department patient visit Nancy Stern [facility] Start: 04-08-2023 End: 04-08-2023 ambulatory Nicolás Maura Other [facility] Start: 04-08-2023 Telephone encounter Nicolás Maura [facility] [employer] Start: 02-27-2023 ambulatory KEN OZUNA Facility :[facility] Start: 02-23-2023 End: 02-23-2023 ambulatory Nicolás Maura Other [facility] Start: 02-23-2023 Office outpatient vi sit 25 minutes Nicolás Maura [facility] Start: 12-31-2022 End: 12-31-2022 ambulatory Nicolás Maura Other [facility] Start: 12-31-2022 Office outpatient ne w 45 minutes Nicolás Maura [facility] Start: 08-13-2022 End: 08-13-2022 ambulatory DARRION SHAMMO Facility:[facility] Start: 08-11-2022 End: 08-11-2022 ambulatory DARRION SHAMMO Facility:[facility] Start: 05-30-2022 End: 05-31-2022 ambulatory DARRION SHAMMO Facility:[facility] Start: 05-28-2022 End: 05-28-[address] JENIFER CASTILLO Facility:[facility] Start: 07-08-2021 End: 02-03-2022 ambulatory [facility] Procedures Date Procedure Procedure Detail Performing Clinician Colonoscopy Nancy Stern Tonsillectomy Nancy Stern Plan of Treatment Date Care Activity Detail Author Start: 06-30-2023 ambulatory Ambulatory Facility:[facility] Payers Date Payer Category Payer Private Health Insurance [id number] 1961 Medicaid [id number] 1961 Medicare [id number] 1950 Unknown [id number] [id number] 1950 Unknown [id number] 2.16.84 [id number] 1950 Unknown [id number] 2.16.84 [id number] 1948 Unknown [id number] 2.16.84 [id number] 1948 Unknown [id number] 2.16.84 [id number] 1948 Unknown [id number] 2.16.8 [id number] 1950 Unknown [id number] 2.16.8 [id number] Social History Date Type Detail Facility Unknown if ever smoked [facility] Other Sex Assigned At [facility] Start: 07-10-2020 Tobacco smoking status Ex-smoker (fi nding) [facility] Functional Status Date Assessment Result Facility 04-17-2023 Functional Status N/A [facility] Hospital Discharge instructions 04-18-2023 Note Date & Type Note Facility 04-18-2023 Hospital Discharg e instructions Patient Education 04/18/2023 00:43:25 Head Injury, Adult Head Injury, Adult There are many types of head injuries. Head injuries can be as minor as a small bump, or they can be a serious medical issue. More severe head injuries include: A jarring injury to the brain (concussion). A bruise (contusion) of the brain. This means there is bleeding in the brain that can cause swelling. A cracked skull (skull fracture). Bleeding in the brain that collects, clots, and forms a bump (hematoma). After a head injury, most problems occur within the first 24 hours, but side effects may occur up to 7 10 days after the injury. It is important to watch your condition for any changes. You may need to be observed in the emergency department or urgent care, or you may be admitted to the hospital. What are the causes? There are many possible causes of a head injury. Serious head injuries may be caused by car accidents, bicycle or motorcycle accidents, sports injuries, falls, or being struck by an object. What are the symptoms? Symptoms of a head injury include a contusion, bump, or bleeding at the site of the injury. Other physical symptoms may include: Headache. Nausea or vomiting. Dizziness. Blurred or double vision. Being uncomfortable around bright lights or loud noises. Seizures. Feeling tired. Trouble being awakened. Loss of consciousness. Mental or emotional symptoms may include: Irritability. Confusion and memory problems. Poor attention and concentration. Changes in eating or sleeping habits. Anxiety or depression. How is this diagnosed? This condition can usually be diagnosed based on your symptoms, a description of the injury, and a physical exam. You may also have imaging tests done, such as a CT scan or an MRI. How is this treated? Treatment for this condition depends on the severity and type of injury you have. The main goal of treatment is to prevent complications and allow the brain time to heal. Mild head injury If you have a mild head injury, you may be sent home, and treatment may include: Observation. A responsible adult should stay with you for 24 hours after your injury and check on you often. Physical rest. Brain rest. Pain medicines. Severe head injury If you have a severe head injury, treatment may include: Close observation. This includes hospitalization with the following care: ?Frequent physical exams. ?Frequent checks of how your brain and nervous system are working (neurological status). ?Checking your blood pressure and oxygen levels. Medicines to relieve pain, prevent seizures, and decrease brain swelling. Airway protection and breathing support. This may include using a ventilator. Treatments that monitor and manage swelling inside the brain. Brain surgery. This may be needed to: ?Remove a collection of blood or blood clots. ?Stop the bleeding. ?Remove a part of the skull to allow room for the brain to swell. Follow these instructions at home: Activity Rest and avoid activities that are physically hard or tiring. Make sure you get enough sleep. Let your brain rest by limiting activities that require a lot of thought or attention, such as: ?Watching TV. ?Playing memory games and puzzles. ?Job-related work or homework. ?Working on the computer, using social media, and texting. Avoid activities that could cause another head injury, such as playing sports, until your health care provider approves. Having another head injury, especially before the first one has healed, can be dangerous. Ask your health care provider when it is safe for you to return to your regular activities, including work or school. Ask your health care provider for a aajl-fk-lcuq plan for gradually returning to activities. Ask your health care provider when you can drive, ride a bicycle, or use heavy machinery. Your ability to react may be slower after a brain injury. Do not do these activities if you are dizzy. Lifestyle Do not drink alcohol until your health care provider approves. Do not use drugs. Alcohol and certain drugs may slow your recovery and can put you at risk of further injury. If it is harder than usual to remember things, write them down. If you are easily distracted, try to do one thing at a time. Talk with family members or close friends when making important decisions. Tell your friends, family, a trusted colleague, and work checker about your injury, symptoms, and restrictions. Have them watch for any new or worsening problems. General instructions Take jehs-goc-lesjymd and prescription medicines only as told by your health care provider. Have someone stay with you for 24 hours after your head injury. This person should watch you for any changes in your symptoms and be ready to seek medical help. Keep all follow-up visits as told by your health care provider. This is important. How is this prevented? Work on improving your balance and strength to avoid falls. Wear a seat belt when you are in a moving vehicle. Wear a helmet when riding a bicycle, skiing, or doing any other sport or activity that has a risk of injury. If you drink alcohol: ?Limit how much you use to: ?0 1 drink a day for non women. ?0 2 drinks a day for men. ?Be aware of how much alcohol is in your drink. In the [place] one drink equals one 12 oz bottle of beer (355 mL), one 5 oz glass of wine (148 mL), or one 1 oz glass of hard liquor (44 mL). Take safety measures in your home, such as: ?Removing clutter and tripping hazards from floors and stairways. ?Using grab bars in bathrooms and handrails by stairs. ?Placing non-slip mats on floors and in bathtubs. ?Improving lighting in dim areas. Where to find more information Centers for Disease Control and Prevention: www.cdc.gov Get help right away if: You have: ?A severe headache that is not helped by medicine. ?Trouble walking or weakness in your arms and legs. ?Clear or bloody fluid coming from your nose or ears. ?Changes in your vision. ?A seizure. ?Increased confusion or irritability. Your symptoms get worse. You are sleepier than normal and have trouble staying awake. You lose your balance. Your pupils change size. Your speech is slurred. Your dizziness gets worse. You vomit. These symptoms may represent a serious problem that is an emergency. Do not wait to see if the symptoms will go away. Get medical help right away. Call your local emergency services (911 in the [place] Do not drive yourself to the hospital. Summary Head injuries can be minor, or they can be a serious medical issue requiring immediate attention. Treatment for this condition depends on the severity and type of injury you have. Have someone stay with you for 24 hours after your injury and check on you often. Ask your health care provider when it is safe for you to return to your regular activities, including work or school. Head injury prevention includes wearing a seat belt in a motor vehicle, using a helmet on a bicycle, limiting alcohol use, and taking safety measures in your home. This information is not intended to replace advice given to you by your health care provider. Make sure you discuss any questions you have with your health care provider. Document Revised: 02/24/2020 Document Reviewed: 02/24/2020 [employer] Patient Education 2022 [employer]. Follow Up Care 04/17/2023 20:26:54 With:RICHARD VARGAS Address: [id number] [facility] (1) When:04/20/2023 Comments:Follow-up with your primary care provider in 3 to 5 days. If symptoms worsen, do not improve, or new symptoms arise please report back to emergency department for further evaluation. [facility] Evaluation + Plan note 04-17-2023 Note Date & Type Note Facility 04-17-2023 Evaluation + Plan note Extrac bogdan from: Title:ED Note Author:Royal Sullivan PA-C te:04/17/23 Closed head injury (S09.90XA : Unspecified injury of head, initial encounter) Fall (W19.XXXA: Unspecified fall, initial encounter) Orders: ABO/Rh ABO/Rh History Check Antibody Screen Automated Diff Basic Metabolic Panel Blood Bank ID# CBC w/ Auto Diff Consult to General Surgery CT Head or Brain w/o Contrast CT Spine Cervical w/o Contrast Drug Screen Urine ECG 12 Lead Adult ED Cardiac Monitoring eGFR Ethanol Level Hepatic Function Panel Lactic Acid Lactic Acid Lipase Level NPO Diet Oxygen Therapy PT & PTT Pulse Oximetry Continuous Saline Lock Insert Troponin Future Appointments Appointment Date:06/30/2023 10:00:00 AM Scheduled Provider:KEN OZUNA PA-C Location:[facility] Appointment Type:URO Office Visit [facility] Evaluation note 02-23-2023 Note Date & Type [...] recent gout flare. Continue monitor without medications. [facility] Other Evaluation note 12-31-2022 Note Date & [...] We will check also for paraproteinemia work-up. [facility] Other Evaluation note Note Date & Type Note Facility Evaluation note No Information [facility] Other History general Narrative - Reported Note [...] TONSILLECTOMY AND ADENOIDECTOMY Hospitalization History SEE ABOVE [facility] Other History general Narrative - Reported Note [...] TONSILLECTOMY AND ADENOIDECTOMY Hospitalization History SEE ABOVE [facility] Other Hospital course Narrative Note Date & Type Note Facility Hospital course Narrative No data available for this section [facility] Progress note Note Date & Type Note Facility Progress note No data available for this section [facility] Summary Purpose Family History No Family History Records FoundNo Family History Records Found No data available for this section No Family History Records Found Advance Directives No Advanced Directives Records FoundNo Advanced Directives Records FoundNo Advanced Directives Records Found Additional Source Comments INFORMATION SOURCE (unrecogn ized section and content) DATE CREATED AUTHOR 02/03/2022 [facility] DATE CREATED AUTHOR AUTHOR'S ORGANIZ ATION 08/22/2022 [facility] DATE CREATED AUTHOR AUTHOR'S ORGANIZ ATION 04/19/2023 [facility] REASON FOR VISIT (unrecogniz ed section and content) 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 [facility] [facility] provides no warranty or guarantee of the accuracy or completeness of information in this document.
[2023-05-11 09:22] LABS: Hematocrit 32.5 % (36.0-48.0); Hemoglobin 9.7 g/dL (12.0-16.0); Mean Corpuscular HGB Conc 29.8 g/dL (29.9-35.2); Mean Platelet Volume 10.6 fL (9.5-13.5); Platelet Count 265 10^3/uL (150-450); Red Blood Count 3.35 10^6/uL (4.20-5.40); Red Cell Distribution Width 13.2 % (11.0-15.0); White Blood Count 7.3 10^3/uL (4.0-11.0)
[2023-05-11 09:40] LABS: Percent Iron Saturation 13.8 %
[2023-05-11 10:01] LABS: Creatinine Urine Random 56.72 mg/dL (20.00-300.00); Total Protein Urine Random 11.6 mg/dL (<=11.9)
[2023-05-11 10:02] LABS: Albumin Level 3.2 g/dL (3.4-5.0); Anion Gap 11.5; BUN Creatinine Ratio 25.4; Carbon Dioxide 29.5 mmol/L (21.0-32.0); Chloride 105 mmol/L (98-107); Estimated GFR (African America 44 (>=60); Estimated GFR (Non-African Ame 36 (>=60); Glucose 123 mg/dL (74-106); Magnesium 2.1 mg/dL (1.8-2.4); Phosphorus 4.2 mg/dL (2.6-4.7); Sodium 141 mmol/L (136-145); Uric Acid 5.9 mg/dL (2.6-6.0)
[2023-05-11 10:05] LABS: Bilirubin Urine NEGATIVE (NEGATIVE); Blood Urine NEGATIVE (NEGATIVE); Clarity Urine CLEAR (CLEAR); Color Urine LT. YELLOW (YELLOW); Glucose Urine UA NEGATIVE (NEGATIVE); Ketones Urine NEGATIVE (NEGATIVE); Leukocyte Esterase Urine SMALL (NEGATIVE); Nitrite Urine NEGATIVE (NEGATIVE); Protein Urine NEGATIVE (NEG/TRACE); Urobilinogen Urine 0.2 EU/dL (0.2-1.0)
[2023-05-11 10:13] LABS: Bacteria Urine NONE SEEN #/HPF (NONE SEEN); Mucus Urine TRACE (NONE SEEN); RBC Urine NONE SEEN #/HPF (0-2); Squamous Epithelial Cell Urine FEW #/LPF (NONE/RARE); WBC Urine 0-2 #/HPF (NONE SEEN)
[2023-05-12 11:13] LABS: Albumin 3.5 g/dL (2.9-4.4); Alpha-1-Globulin 0.2 g/dL (0.0-0.4); Alpha-2-Globulin 0.9 g/dL (0.4-1.0); Gamma Globulin 1.3 g/dL (0.4-1.8); Protein, Total 6.8 g/dL (6.0-8.5)
[2023-05-12 12:13] LABS: PTH, Intact 56 pg/mL (15-65)
[2023-05-13 12:08] LABS: Albumin, U 18.3 % (.); Alpha-1-Globulin, U 2.6 % (.); Alpha-2-Globulin, U 16.8 % (.); Beta Globulin, U 33.7 % (.); Gamma Globulin, U 28.6 % (.); M-Spike, % Not Observed % (Not Observed)
== END 2023-05-11 00:41 | disposition home or self-care (01) ==
LOC: LAB 00:40
PROVIDERS: PCP Nurse Practitioner Primary Care; Visit Provider Internal Medicine
DX: I12.9 Hypertensive chronic kidney disease with stage 1 through stage 4 chronic kidney disease, or unspecified chronic kidney disease (principal); N18.4 Chronic kidney disease, stage 4 (severe); E11.22 Type 2 diabetes mellitus with diabetic chronic kidney disease; N25.81 Secondary hyperparathyroidism of renal origin; D63.1 Anemia in chronic kidney disease; R32 Unspecified urinary incontinence
CPT/HCPCS: 36415; 80069; 81001; 82306; 82570; 82728; 83540; 83550; 83735; 83970; 84155; 84156; 84165; 84166; 84550; 85027

== ENCOUNTER 2023-05-27 02:39 | Outpatient (REF) | payer MEDICARE, MEDICAID, SELFPAY ==
--- OUTSIDE RECORDS SUMMARY | 2023-05-27 02:42 | XMS_ITS | CCD ---
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 5ML as directed Subcutaneous ONCE A WEEK Active Acetaminophen (4 sources) Start: 07-10-2020 acetaminophen Refills(s) 0 Start Date: 07/10/20 Status: Ordered take 1 tablet by lei th every four hours Acetaminophen 325 MG 1 [...] every week Vitamin D (Ergocalciferol) 1.25 MG (64830 UT) 1 capsule Orally ONCE A WEEK Active ferrous sulfate (4 sources) Start: 1 ferrous sulfate Oral, Refills(s) 0 Start Date: 07/10/20 Status: Ordered take 1 tablet by lei th every twenty-four hours Ferrous Sulfate 325 (65 [...] Arthritis 07-10-2020 Chronic Other aftercare (1 source) residential (current) use of oral hypoglycemic drugs; Translations: [LONG-TERM USE ORAL HYPOGLYCEMIC DX] Onset: 3 Episodic Other 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 Transcribed by: GREG Technologist: QUINCY Normal [facility] Discharge Instructionson Discharge Instructions [id number] Normal [facility] ED Clinical Summaryon 2022 ED Clinical Summary [address] [address] ED Clinical Summary Person Information Name: AVILA VALENZUELA/NewSamy Age: 73 Years : 1950 Sex: Female Language: Urdu PCP: RICHARD VARGAS MD Marital Status: Single [...] 04/18/2023 00:43:24 04/18/2023 00:43:24 04/18/2023 00:43:24 ADDRESS: [address] [place] [address] [address] [facility] [id number] PHYS DOC NOTES: MEDICAL INFORMATION: Prescriptions Given: [...] Follow up: With: Address: When: RICHARD VARGAS [address] [place] [address] [facility] ([employer] In 3 days 04/20/2023 Comments: Follow-up with your primary care provider in 3 to 5 days. If symptoms worsen, do not improve, or new symptoms arise please report back to emergency department for further evaluation. DIAGNOSIS: Closed head injury; Fall [facility] ED Note-Physicianon 04-18-20 ED Note-Physician Basic Information [...] and Complexity of Problems Differential Diagnosis: [] [facility] Data External documents reviewed: [] My [...] medications Follow-up With When Contact Information RICHARD VARGAS In 3 days 04/20/2023 EST [address] [place] [address] Business (1) Additional Instructions: Follow-up with your primary care provider in 3 to 5 days. If symptoms worsen, do not improve, or new symptoms arise please report back to emergency department for further evaluation. Patient Education Head Injury, Adult Attestation Patient seen (more content not included)... [facility] Comment on above: Result Comment: Elec tronically Signed By: Royal Sullivan PA-C\.br\Date and Time Signed: 04/17/23 23:30 EST\.br\Electronically Co-Signed By: Nancy Stern DO.chin\Date and Time Co-Signed: 04/18/23 01:27 EST ED Patient Education Noteon 12-23-2023 ED Patient Education Note Neurology Head Injury, [...] Ask your health care provider for a plkn-xh-vzpf plan for gradually returning to activities. ? 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 Have them watch for any new or worsening problems. General instructions ? Take ndfk-ktk-aclgaas and prescription medicines only as told by your health care provider. ? Have someone stay with you for 24 hours after your head injury. This person should watch you for any changes in your symptoms and be ready to seek medical help. ? Keep all follow-up visits as told by your health care pr (more content not included)... 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 It is important that you follow up with a doctor, nurse practitioner, or physician?s driller's assistant for ongoing care. If your symptoms [...] Follow-up Instructions: With: Address: When: RICHARD VARGAS [address] [place], [place] [id number] [facility] (1) In 3 days 04/20/2023 Comments: Follow-up with [...] opioids can be used to help relieve rmqtkjaa-to-jcdcda pain and are often prescribed following a [...] If you (more content not included)... Normal [facility] ED Traumaon 04-18-2023 ED Trauma [id number]#1.00TIFF Normal [facility] Monitor Recordon 04-18-2023 Monitor Record [id number]#1.00TIFF Normal [facility] Monitor Record [id number]#1.00TIFF Normal [facility] Monitor Record [id number]#1.00TIFF Normal [facility] RAD - Preliminary Cat Scan R eporton 04-18-2023 RAD - Preliminary Cat Scan Report [id number]#1.00TIFF [facility] U Drug Screenon 04-18-2023 U Amph Scr Negative Invalid Interpretation Code [facility] Comment on above: Performed By: #### 2 471665 ####[facility] [address] [place] [address] U Cookie Scr Negative Invalid Interpretation Code [facility] Comment on above: Performed By: #### 2 903644 ####[facility] [address] [place] [address] U Benzodia Scr Negative Invalid Interpretation Code [facility] Comment on above: Performed By: #### 2 406887 ####[facility] [address] [place] [address] U Cannab Scr Negative Invalid Interpretation Code [facility] Comment on above: Performed By: #### 2 022434 ####[facility] [address] [place] [address] U Cocaine Scr Negative Invalid Interpretation Code [facility] Comment on above: Performed By: #### 2 557521 ####[facility] [address] [place] [address] U Opiate Scr Negative Invalid Interpretation Code [facility] Comment on above: Performed By: #### 2 421004 ####[facility] [address] [place] [address] U PCP Scr Negative Invalid Interpretation Code [facility] Comment on above: Performed By: #### 2 772603 ####[facility] [address] [facility] [place] [address] ABO/Rhon 04-17-2023 ABO/Rh Positive Invalid Interpretation Code [facility] Comment on above: Performed By: #### 1 1233269, 0257635, 10067934, 07641648 ####[facility] [address] [facility] [place] [address] ABSCon 04-17-2023 ABSC Gel Interp Negative Normal [facility] Comment on above: Performed By: #### 1 5355930, 3990268, 67421051, 42039429 ####[facility] [address] [facility] [place] [address] Auto Diffon 04-17-2023 Basophils/100 WBC (Bld) 1.2 % Normal 0.0-2.0 [facility] Comment on above: Order Comment: Order Added by Discern Expert. Performed By: #### 1 5739571, 6104494, 8788385, 7034990, 8515615, 6799899, 2147976, 26977166, 2241045 ####[facility] [address] [place] [address] Basophils/Leukocytes Auto (Bld) [Pure # fraction] 0.1 E9/L Normal 0.0-0.2 [facility] Comment on above: Order Comment: Order Added by Discern Expert. Performed By: #### 1 3074847, 9096664, 5382478, 9037777, 1296386, 8766189, 6510581, 31720966, 6187036 ####[place] [address] [place] [address] Eosinophils/100 WBC (Bld) 1.3 % Normal 0.0-8.0 [facility] Comment on above: Order Comment: Order Added by Discern Expert. Performed By: #### 1 9862820, 3119653, 3706412, 8055149, 0800010, 9368345, 8815684, 08326136, 0680242 ####[address] [address] Eosinophils/Leukocytes Auto (Bld) [Pure # fraction] 0.1 E9/L Normal 0.0-0.5 [facility] Comment on above: Order Comment: Order Added by Discern Expert. Performed By: #### 1 5040757, 9391690, 8745801, 0065276, 5055074, 1036363, 8584423, 38008892, 0202237 ####[address] [address] Lymphocytes/100 WBC (Bld) 23.6 % Normal 14.0-50.0 [facility] Comment on above: Order Comment: Order Added by Jason Expert. Performed By: #### 1 3707035, 9073430, 2553709, 0152554, 1675690, 6947523, 0998216, 40924729, 3058188 ####[address] [address] Lymphocytes/Leukocytes Auto (Bld) [Pure # fraction] 1.8 E9/L Normal 1.0-4.0 [facility] Comment on above: Order Comment: Order Added by Discern Expert. Performed By: #### 1 2350888, 5317604, 7809966, 8049772, 6931252, 5511723, 5786946, 40031447, 2675240 ####[address] [address] Monocytes/100 WBC (Bld) 10.1 % Normal 4.0-14.0 [facility] Comment on above: Order Comment: Order Added by Discern Expert. Performed By: #### 1 5756965, 2791143, 1031835, 7746966, 2204772, 7043432, 7315238, 13537873, 8617549 ####[address] [place] [address] Monocytes/Leukocytes Auto (Bld) [Pure # fraction] 0.8 E9/L Normal 0.2-1.0 [facility] Comment on above: Order Comment: Order Added by Discern Expert. Performed By: #### 1 8695691, 1003154, 5036940, 9135098, 9767015, 8949929, 4642482, 05793151, 7471422 ####[address] [place] [address] Neutrophils/100 WBC (Bld) 63.8 % Normal 36.0-75.0 [facility] Comment on above: Order Comment: Order Added by Discern Expert. Performed By: #### 1 5722786, 3398925, 3872472, 6159994, 4789730, 1952709, 7506906, 42794321, 8637354 ####[address] [place] [address] Neutrophils/Leukocytes Auto (Bld) [Pure # fraction] 4.9 E9/L Normal 2.0-7.5 [facility] Comment on above: Order Comment: Order Added by Discern Expert. Performed By: #### 1 2927910, 4426049, 2475837, 4699422, 2323840, 4689721, 9619554, 98892539, 4619726 ####[address] [place] [address] BLOOD BANKOrdered By: Karina Stafford on 04-17-2023 ABO/Rh Interp Positive Invalid Interpretation Code [facility] BB Subsection ABSC Gel Interp Negative (04/17/23 8:42 PM) Normal [facility] BB Subsection BMPon 04-17-2023 Anion gap [Moles/Vol] 14 mmol/L Normal 6-16 [facility] Comment on above: Performed By: #### 1 2454264, 6105563, 2849361, 8806674, 5219773, 7516736, 5734537, 72654375, 1876030 ####[facility] [address] [place] [address] BUN/Creat Ratio 21 No Units High 10-20 [facility] Comment on above: Performed By: #### 1 3133597, 9846136, 4663254, 2118186, 3654399, 8599319, 5103014, 42522612, 6547365 ####[facility] [address] [place] [address] Calcium [Mass/Vol] 9.6 mg/dL Normal 8.9-11.1 [facility] Comment on above: Performed By: #### 1 5286907, 7780346, 4783607, 0562590, 3206397, 9205376, 0337531, 46673627, 0010738 ####[facility] [address] [place] [address] Chloride [Moles/Vol] 104 mmol/L Normal 101-111 [facility] Comment on above: Performed By: #### 1 4700206, 2350808, 2398283, 1674362, 9569091, 7743826, 8611243, 35131752, 2208007 ####[facility] [address] [place] [address] CO2 [Moles/Vol] 28 mmol/L Normal 21-31 [facility] Comment on above: Performed By: #### 1 2632099, 4105136, 7643261, 8779997, 7853194, 7791471, 8452316, 13714814, 1754442 ####[facility] [address] [place] [address] Creatinine [Mass/Vol] 1.7 mg/dL High 0.5-1.3 [facility] Comment on above: Performed By: #### 1 9953050, 1062522, 2419762, 2354705, 2695249, 3879417, 3830602, 20889919, 7727314 ####[facility] [address] [place] [address] Glucose [Mass/Vol] 135 mg/dL Normal 55-199 [facility] Comment on above: Performed By: #### 1 5176292, 7680494, 1964558, 0380258, 5581402, 8705068, 1875548, 61424253, 1131628 ####[facility] [address] [place] [address] Potassium [Moles/Vol] 3.7 mmol/L Normal 3.5-5.3 [facility] Comment on above: Performed By: #### 1 8014530, 1080669, 0960890, 1749996, 7847744, 5121892, 2659427, 32414806, 3432713 ####[facility] [address] [place] [address] Sodium [Moles/Vol] 142 mmol/L Normal 135-145 [facility] Comment on above: Performed By: #### 1 9285387, 2078144, 0889012, 0156406, 3431421, 8834255, 5821260, 55641231, 5295992 ####[facility] [address] [place] [address] Urea nitrogen [Mass/Vol] 36 mg/dL High 5-21 [facility] Comment on above: Performed By: #### 1 6958994, 9677776, 7030066, 8378202, 3873263, 5277409, 8093650, 91857621, 6077882 ####[facility] [address] [place] [address] Blood Bank ID#on 04-17-2023 BBID# [id number] Invalid Interpretation Code [facility] Comment on above: Performed By: #### 1 9418498, 7691245, 96717719, 12086924 ####[facility] [address] [place] [address] CBC w/ Auto Diffon 3 Erythrocyte distribution width (RBC) [Ratio] 13.8 % Normal 10.9-14.2 [facility] Comment on above: Performed By: #### 1 5726584, 2482719, 9205595, 1817178, 5448699, 3200904, 2907400, 51458579, 5519952 ####[place] [address] Hematocrit (Bld) [Volume fraction] 31.5 % Low 34.0-46.0 [facility] Comment on above: Performed By: #### 1 1873029, 5098466, 3515569, 1830045, 8549803, 9268614, 7641388, 41766724, 5991322 ####[place] [address] Hemoglobin (Bld) [Mass/Vol] 10.1 g/dL Low 12.0-16.0 [facility] Comment on above: Performed By: #### 1 6008950, 9806408, 5667810, 4539526, 5009937, 9773872, 0824857, 25138898, 7685973 ####[place] [address] MCH (RBC) [Entitic mass] 29.4 pg Normal 27.0-34.0 [facility] Comment on above: Performed By: #### 1 3382947, 4674068, 3865179, 4428961, 2405547, 0263186, 1536665, 89537090, 3484101 ####[place] [address] MCHC (RBC) [Mass/Vol] 32.1 g/dL Normal 31.4-36.0 [facility] Comment on above: Performed By: #### 1 4348464, 0044524, 2150376, 0774854, 1799466, 5042378, 1339399, 37172547, 4930650 ####[address] [address] MCV (RBC) [Entitic vol] 91.4 fL Normal 80.0-100.0 [facility] Comment on above: Performed By: #### 1 8345522, 8460254, 2595012, 8241142, 2722310, 6148942, 7838655, 74991899, 8853243 ####[facility] [address] [place] [address] Platelet mean volume (Bld) [Entitic vol] 8.9 fL Normal 6.4-10.8 [facility] Comment on above: Performed By: #### 1 7346078, 1382410, 0468424, 3382297, 8815276, 0842102, 8014470, 90643490, 6597741 ####[address] [address] Platelets (Bld) [#/Vol] 271.0 E9/L Normal 150.0-500.0 [facility] Comment on above: Performed By: #### 1 0232451, 0091198, 3592316, 6319574, 8539829, 8381718, 3698330, 93816131, 4657751 ####[address] [address] RBC (Bld) [#/Vol] 3.4 E12/L Low 4.3-5.9 [facility] Comment on above: Performed By: #### 1 9004413, 7607719, 9512053, 9835908, 9429910, 1129504, 5635899, 04538819, 8591790 ####[address] [address] WBC corrected for nucl RBC Auto (Bld) [#/Vol] 7.7 E9/L Normal 4.0-11.0 [facility] Comment on above: Performed By: #### 1 3479060, 7494921, 5166955, 2699492, 6771873, 8207802, 6383857, 90632105, 2335406 ####[address] [place] [address] CHEMISTRYOrdered By: Autumn Renteria on 04-17-2023 U [...] 32.6 s Normal 25.1 - 36.5 second(s) [facility] Auto Coag Comment on above: Interpretive Data: [...] the same coagulation reagent and instrumentation as [facility]. Currently there are no coagulation studies available worldwide for children to 14 days, and no normal ranges. Heparin therapeutic range (represented by Anti-Factor Xa activity of 0.2 - 0.4 U/mL) corresponds to PTT of 56.6 - 109.0 sec. INR Coag (PPP) [Relative time] 1.2 {INR} Invalid Interpretation Code [facility] Auto Coag Comment on above: Interpretive Data: I NR results are specifically intended to assess patients stabilized on long-term Anticoagulation therapy suggested INR s Less Intensive Anticoagulation 2.0 3.0 Conventional Range 3.0 4.5 PT Coag (PPP) [Time] 13.1 s High 9.4 - 1 2.5 second(s) [facility] Auto Coag Comment on above: Interpretive Data: [...] the same coagulation reagent and instrumentation as [facility]. Currently there are no coagulation studies available worldwide for children to 14 days, and no normal ranges. Consent for Treatmenton 03-28 Consent for Treatment [id number] 32#1.00TIFF Normal [facility] Ethanolon 04-17-2023 Ethanol Lvl 83 mg/dL Abnormal <=7 [facility] Comment on above: Result Comment: Crit ical Result S_ETOH:[id number] Called to and read back by: TAI BARBA at: 04/17/2023 21:19:24 by:CADY RENTERIA Critical Result Verified by Repeat Analysis Performed By: #### 2 083292 ####[facility] [address] [place] [address] HEMATOLOGYOrdered By: SYSTEM SYSTEM on 04-17-2023 Basophils/100 [...] - 7.5 E9/L [facility] HemeAutoSS HEMATOLOGYOrdered By: Kairna Stafford on 04-17-2023 Erythrocyte distribution width (RBC) [...] 8.9 fL Normal 6.4 - 10.8 fL [facility] HemeAutoSS Platelets (Bld) [#/Vol] 271.0 E9/L Normal 150.0 - 500.0 E9/L [facility] HemeAutoSS RBC (Bld) [#/Vol] 3.4 E12/L Low 4.3 - 5.9 E12/L [facility] HemeAutoSS WBC corrected for nucl RBC Auto (Bld) [#/Vol] 7.7 E9/L Normal 4.0 - 11.0 E9/L [facility] HemeAutoSS Hep Func Panelon 04-17-2023 Albumin [Mass/Vol] 4.1 g/dL Normal 3.3-5.0 [facility] Comment on above: Performed By: #### 1 0258052, 3897658, 5699662, 8750198, 3822577, 0654432, 3611348, 60806688, 3821991 ####[facility] [address] [place] [address] Albumin/Globulin [Mass ratio] 1.2 {ratio} Normal 1.1-2.2 [facility] Comment on above: Performed By: #### 1 5887178, 1852424, 4922563, 1979702, 2177398, 3368592, 7212622, 40264246, 6393828 ####[facility] [address] [place] [address] Alk Phos 68 Int._Unit/L Normal 21-98 [facility] Comment on above: Performed By: #### 1 7860929, 5951301, 2267289, 5453692, 8787035, 9681400, 0140902, 60673372, 9825465 ####[facility] [address] [place] [address] ALT 14 Int._Unit/L Normal 6-46 [facility] Comment on above: Performed By: #### 1 1364136, 7407520, 1467591, 7190828, 2218114, 4284460, 4008240, 70522117, 1050070 ####[facility] [address] [place] [address] AST 14 Int._Unit/L Normal 5-43 [facility] Comment on above: Performed By: #### 1 3200302, 0422809, 8948193, 9661087, 1156927, 5532485, 8769946, 87755935, 8421698 ####[facility] [address] [place] [address] Bili Direct 0.2 mg/dL Normal 0.0-0.4 [facility] Comment on above: Performed By: #### 1 4275343, 0999370, 7878372, 0944210, 2041128, 5555801, 0318639, 80928911, 5394508 ####[facility] [address] [place] [address] Bili Indirect 0.6 mg/dL Normal 0.1-0.9 [facility] Comment on above: Performed By: #### 1 9607080, 7502114, 3794337, 4855389, 7062045, 4751473, 8152023, 53063291, 0928758 ####[facility] [address] [place] [address] Bili Total 0.8 mg/dL Normal 0.0-1.1 [facility] Comment on above: Performed By: #### 1 0294338, 9339705, 1372607, 2656786, 8586280, 4981513, 1117218, 39429289, 4994116 ####[facility] [address] [place] [address] Globulin (S) [Mass/Vol] 3.4 g/dL Normal 1.4-4.0 [facility] Comment on above: Performed By: #### 1 6471261, 5373382, 5170314, 1290189, 6080278, 5408587, 9116587, 02127051, 3813192 ####[facility] [address] [place] [address] Protein [Mass/Vol] 7.5 g/dL Normal 6.0-7.8 [facility] Comment on above: Performed By: #### 1 1198630, 8628137, 0186014, 4242308, 2519657, 5312747, 0483516, 43590358, 5441322 ####[facility] [address] [place] [address] Lactic Acidon 04-17-2023 Lactic Acid Lvl 2.1 mmol/L Normal 0.5-2.2 [facility] Comment on above: Performed By: #### 1 5114942, 3511108, 1876310, 0304704, 8545272, 9713561, 5213476, 81845565, 1802009 ####[facility] [address] [place] [address] Lipase Levelon 04-17-2023 Lipase Lvl 235 unit/L High 13-58 [facility] Comment on above: Performed By: #### 1 1301208, 1090235, 2623097, 4802977, 9541945, 8323561, 8247257, 67141746, 5228592 ####[facility] [address] [place] [address] PT & PTTon 04-17-2023 aPTT Coag (PPP) [Time] 32.6 second(s) Normal 25.1-36.5 [facility] Comment on above: Result Comment: Para meter [...] the same coagulation reagent and instrumentation as [facility]. Currently there are no coagulation studies available worldwide for children to 14 days, and no normal ranges. Heparin therapeutic range (represented by Anti-Factor Xa activity of 0.2 - 0.4 U/mL) corresponds to PTT of 56.6 - 109.0 sec. Performed By: #### 1 4512886, 6494559, 0319349, 3979989, 4860384, 3982118, 4210358, 36315305, 2153050 ####[facility] [address] [place] [address] INR Coag (PPP) [Relative time] 1.2 {INR} Invalid Interpretation Code [facility] Comment on above: Result Comment: INR results are specifically intended to assess patients stabilized on long-term Anticoagulation therapy suggested INR?s ?Less Intensive Anticoagulation? 2.0 ? 3.0 Conventional Range 3.0 ? 4.5 Performed By: #### 1 4778048, 9918521, 0269054, 5371156, 7983380, 3703586, 4802493, 91229211, 9163797 ####[facility] [address] [place] [address] PT Coag (PPP) [Time] 13.1 second(s) High 9.4-12.5 [facility] Comment on above: Result Comment: 15 d [...] the same coagulation reagent and instrumentation as [facility]. Currently there are no coagulation studies available worldwide for children to 14 days, and no normal ranges. Performed By: #### 1 4577022, 7997062, 8105958, 7557086, 0388229, 3666718, 5157996, 55298400, 1010530 ####[facility] [address] [place] [address] Pre-Arrival Noteon 3 Pre-Arrival Note Pre-Arrival Summary Name: BEA Current Date: 04/17/2023 20:28:42 EST Gender: Female Date of : Age: 73 Pre-Arrival Type: EMS ETA: 04/17/2023 20:52:00 EST Primary Care Physician: Presenting Problem: Fall, Hit head Pre-Arrival User: Bernadine Littlejohn RN Referring Source: Location: [place] Completion Date/Time: 04/17/2023 20:22:00 [facility] Emergency Department Pre-Hospital Report Form ___ Vital Signs: 107/54, 80HR, 97% RA Pre-Hospital Report: Fall, Hit head on table Treatment in Route: 2LAC Response to Treatment: Misc. Issues: Normal [facility] Troponinon 04-17-2023 Troponin 8.90 pg/mL Low 10.10-27.10 [facility] Comment on above: Result Comment: The 95% CI (Confidence Interval) PPV (Positive Predictive Value) for myocardial infarction in females is 38 pg/mL, in males 51 pg/mL. The results should be used in conjunction with clinical conditions of myocardial infarction. (Access High Sensitivity Troponin I Instructions For Use, Jessica Jarrett, November 2017) Performed By: #### 1 [id number], [id number], [id number], [id number], [id number], [id number] ####[facility] [address] [place] [address] eGFRon 04-17-2023 eGFR 31 mL/min/1.73 m2 Low >=59 [facility] Comment on above: Order Comment: Order added by Discern Expert. Performed By: #### 1 [id number], [id number], [id number], [id number], [id number], [id number] ####[facility] [address] [place], [place] [id number] GLYCOHEMOGLOBIN A1Con 2022 ADA RECOMMENDATION SEE BELOW Normal [facility] Comment on above: Result Comment: ADA RECOMMENDED LIMIT 4.0 - 6.0 ADA THERAPEUTIC TARGET < 7.0 ACTION SUGGESTED > 7.0 Performed By: #### A 1C #### [facility] [address] [place] [address] Dr. Vanessa Denis Glucose [Mass/Vol] 223 mg/dL Normal [facility] Comment on above: Performed By: #### A 1C #### [facility] [address] [place] [address] Dr. Vanessa Denis HbA1c (Bld) [Mass fraction] 9.4 % Critically high 4.5-6.2 [facility] Comment on above: Performed By: #### A 1C #### [facility] [address] [place] [address] Dr. Vanessa Denis PROF 14(COMP METB)on 023 Albumin [Mass/Vol] 3.4 g/dL Normal 3.4-5.0 [facility] Comment on above: Performed By: #### C MP #### [facility] [address] [place] [address] Dr. Vanessa Denis Albumin/Globulin [Mass ratio] 0.8 {ratio} Normal [facility] Comment on above: Performed By: #### C MP #### [facility] [address] [place] [address] Dr. Vanessa Denis ALP [Catalytic activity/Vol] 71 U/L Normal 46-116 [facility] Comment on above: Performed By: #### C MP #### [facility] [address] [place] [address] Dr. Vanessa Denis ALT [Catalytic activity/Vol] 25 U/L Normal 14-59 [facility] Comment on above: Performed By: #### C MP #### [facility] [address] [place] [address] Dr. Vanessa Denis Anion gap [Moles/Vol] 6.7 mmol/L Normal [facility] Comment on above: Performed By: #### C MP #### [facility] [address] [address] [address] Vanessa Denis AST [Catalytic activity/Vol] 19 U/L Normal 15-37 [facility] Comment on above: Performed By: #### C MP #### [facility] [address] [address] [address] Vanessa Denis Bilirubin [Mass/Vol] 0.9 mg/dL Normal 0.2-1.0 [facility] Comment on above: Performed By: #### C MP #### [facility] [address] [address] [address] Vanessa Denis Calcium [Mass/Vol] 9.5 mg/dL Normal 8.5-10.1 [facility] Comment on above: Performed By: #### C MP #### [facility] [address] [address] [address] Vanessa Denis Chloride [Moles/Vol] 102 mmol/L Normal 98-107 [facility] Comment on above: Performed By: #### C MP #### [facility] [address] [address] [address] Vanessa Denis CO2 [Moles/Vol] 35.2 mmol/L Critically high 21.0-32.0 [facility] Comment on above: Performed By: #### C MP #### [facility] [address] [address] [address] Vanessa Denis Creatinine [Mass/Vol] 1.23 mg/dL Critically high 0.55-1.02 [facility] Comment on above: Performed By: #### C MP #### [facility] [address] [address] [address] Vanessa Denis EGFR-AF ROMANIAN 52 mL/min/1.73m2 Critically low >=60 [facility] Comment on above: Performed By: #### C MP #### [facility] [address] [address] [address] Vanessa Denis EGFR-NON AF ROMANIAN 43 mL/min/1.73m2 Critically low >=60 [facility] Comment on above: Performed By: #### C MP #### [facility] [address] [address] [address] Vanessa Denis Globulin (S) [Mass/Vol] 4.1 g/dL Normal [facility] Comment on above: Performed By: #### C MP #### [facility] [address] [place] [address] Dr. Vanessa Denis Glucose [Mass/Vol] 267 mg/dL Critically high 74-106 T [facility] Comment on above: Performed By: #### C MP #### [facility] [address] [address] [address] Vanessa Denis Potassium [Moles/Vol] 4.9 mmol/L Normal 3.5-5.1 [facility] Comment on above: Performed By: #### C MP #### [facility] [address] [place] [address] Dr. Vanessa Denis Protein [Mass/Vol] 7.5 g/dL Normal 6.4-8.2 [facility] Comment on above: Performed By: #### C MP #### [facility] [address] [place] [address] Dr. Vanessa Denis Sodium [Moles/Vol] 139 mmol/L Normal 136-145 [facility] Comment on above: Performed By: #### C MP #### [facility] [address] [place] [address] Dr. Vanessa Denis Urea nitrogen [Mass/Vol] 26.0 mg/dL Critically high 7.0-18.0 [facility] Comment on above: Performed By: #### C MP #### [facility] [address] [place] [address] Dr. Vanessa Denis Urea nitrogen/Creatinine [Mass ratio] 21.1 mg/mg Normal [facility] Comment on above: Performed By: #### C MP #### [facility] [address] [place] [address] Dr. Vanessa Denis CTA CHEST WO W [...] by: TWYLA CONTEH Date: 2022-05-30 14:23 Normal [facility] GLYCOHEMOGLOBIN A1Con 2022 ADA RECOMMENDATION SEE BELOW Normal [facility] Comment on above: Result Comment: ADA RECOMMENDED LIMIT 4.0 - 6.0 ADA THERAPEUTIC TARGET < 7.0 ACTION SUGGESTED > 7.0 Performed By: #### A 1C #### [facility] [address] [place] [address] Dr. Vaenssa Denis Glucose [Mass/Vol] 203 mg/dL Normal [facility] Comment on above: Performed By: #### A 1C #### [facility] [address] [place] [address] Dr. Vanessa Denis HbA1c (Bld) [Mass fraction] 8.7 % Critically high 4.5-6.2 [facility] Comment on above: Performed By: #### A 1C #### [facility] [address] [place] [address] Dr. Vanessa Denis HEMOGRAM AND PLATELon 2022 Hematocrit (Bld) [Volume fraction] 45.4 % Normal 36.0-48.0 [facility] Comment on above: Performed By: #### H H #### [facility] [address] [place] [address] Dr. Vanessa Denis Hemoglobin (Bld) [Mass/Vol] 14.5 g/dL Normal 12.0-16.0 [facility] Comment on above: Performed By: #### H H #### [facility] [address] [address] [address] Vanessa Denis MCH (RBC) [Entitic mass] 29.0 pg Normal 26.7-34.0 [facility] Comment on above: Performed By: #### H H #### [facility] [address] [address] [address] Vanessa Denis MCHC (RBC) [Mass/Vol] 31.9 g/dL Normal 29.9-35.2 [facility] Comment on above: Performed By: #### H H #### [facility] [address] [place] [address] Dr. Vanessa Denis MCV (RBC) [Entitic vol] 90.8 fL Normal 81.0-99.0 [facility] Comment on above: Performed By: #### H H #### [facility] [address] [place] [address] Dr. Vanessa Denis PLT 164 103/ul Normal 150-450 [facility] Comment on above: Performed By: #### H H #### [facility] [address] [place] [address] Dr. Vanessa Denis RBC 5.00 106/ul Normal 4.20-5.40 [facility] Comment on above: Performed By: #### H H #### [facility] [address] [place] [address] Dr. Vanessa Denis WBC 7.6 103/ul Normal 4.0-11.0 [facility] Comment on above: Performed By: #### H H #### [facility] [address] [place] [address] Dr. Vanessa Denis LIPID PROFILEon 05-30-2022 CHOL-HDL RATIO NORM SEE BELOW Normal [facility] Comment on above: Result Comment: 3.3 - 4.4 LOW RISK 4.4 - 7.1 AVERAGE RISK 7.1 - 11.0 MODERATE RISK >11.0 HIGH RISK Performed By: #### L IPID, TSH #### [facility] [address] [place] [address] Dr. Vanessa Denis Cholesterol [Mass/Vol] 110 mg/dL Normal <=200 [facility] Comment on above: Performed By: #### L IPID, TSH #### [facility] [address] [address] [address] Vanessa Denis Cholesterol in HDL [Mass/Vol] 51 mg/dL Normal 40-60 [facility] Comment on above: Performed By: #### L IPID, TSH #### [facility] [address] [address] [address] Vanessa Denis Cholesterol in LDL [Mass/Vol] 39.4 mg/dL Normal [facility] Comment on above: Performed By: #### L IPID, TSH #### [facility] [address] [address] [address] Vanessa Denis Cholesterol.total/Chol esterol in HDL [Mass ratio] 2.2 {ratio} Normal [facility] Comment on above: Performed By: #### L IPID, TSH #### [facility] [address] [address] [address] Vanessa Denis HDL NORMAL > or = 60 mg/dl - LOW CARDIOVASCULAR RISK <40 mg/dl - HIGH CARDIOVASCULAR RISK Normal [facility] Comment on above: Performed By: #### L IPID, TSH #### [facility] [address] [place] [address] Dr. Vanessa Denis LDL CALC NORMAL SEE BELOW Normal [facility] Comment on above: Result Comment: <100 mg/dl OPTIMAL 100 - 129 mg/dl NEAR OR ABOVE OPTIMAL 130 - 159 mg/dl BORDERLINE HIGH 160 - 189 mg/dl HIGH >190 mg/dl VERY HIGH Performed By: #### L IPID, TSH #### [facility] [address] [address] [address] Vanessa Denis Triglyceride [Mass/Vol] 98 mg/dL Normal <=150 [facility] Comment on above: Performed By: #### L IPID, TSH #### [facility] [address] [address] [address] Vanessa Denis VLDL CALC 19.6 mg/dL Normal [facility] Comment on above: Performed By: #### L IPID, TSH #### [facility] [address] [place] [address] Dr. Vanessa Denis PROF 14(COMP METB)on 023 Albumin [Mass/Vol] 3.4 g/dL Normal 3.4-5.0 [facility] Comment on above: Performed By: #### C MP #### [facility] [address] [place] [address] Dr. Vanessa Denis Albumin/Globulin [Mass ratio] 0.9 {ratio} Normal [facility] Comment on above: Performed By: #### C MP #### [facility] [address] [place] [address] Dr. Vanessa Denis ALP [Catalytic activity/Vol] 68 U/L Normal 46-116 [facility] Comment on above: Performed By: #### C MP #### [facility] [address] [place] [address] Dr. Vanessa Denis ALT [Catalytic activity/Vol] 23 U/L Normal 14-59 [facility] Comment on above: Performed By: #### C MP #### [facility] [address] [place] [address] Dr. Vanessa Denis Anion gap [Moles/Vol] 10.1 mmol/L Normal [facility] Comment on above: Performed By: #### C MP #### [facility] [address] [place] [address] Dr. Vanessa Denis AST [Catalytic activity/Vol] 21 U/L Normal 15-37 [facility] Comment on above: Performed By: #### C MP #### [facility] [address] [place] [address] Dr. Vanessa Denis Bilirubin [Mass/Vol] 0.9 mg/dL Normal 0.2-1.0 [facility] Comment on above: Performed By: #### C MP #### [facility] [address] [place] [address] Dr. Vanessa Denis Calcium [Mass/Vol] 9.2 mg/dL Normal 8.5-10.1 [facility] Comment on above: Performed By: #### C MP #### [facility] [address] [address] [address] Vanessa Denis Chloride [Moles/Vol] 101 mmol/L Normal 98-107 [facility] Comment on above: Performed By: #### C MP #### [facility] [address] [address] [address] Vanessa Denis CO2 [Moles/Vol] 31.5 mmol/L Normal 21.0-32.0 [facility] Comment on above: Performed By: #### C MP #### [facility] [address] [address] [address] Vanessa Denis Creatinine [Mass/Vol] 1.15 mg/dL Critically high 0.55-1.02 [facility] Comment on above: Performed By: #### C MP #### [facility] [address] [address] [address] Vanessa Denis EGFR-AF ROMANIAN 56 mL/min/1.73m2 Critically low >=60 [facility] Comment on above: Performed By: #### C MP #### [facility] [address] [address] [address] Vanessa Denis EGFR-NON AF ROMANIAN 46 mL/min/1.73m2 Critically low >=60 [facility] Comment on above: Performed By: #### C MP #### [facility] [address] [address] [address] Vanessa Denis Globulin (S) [Mass/Vol] 4.0 g/dL Normal [facility] Comment on above: Performed By: #### C MP #### [facility] [address] [address] [address] Vanessa Denis Glucose [Mass/Vol] 254 mg/dL Critically high 74-106 T [facility] Comment on above: Performed By: #### C MP #### [facility] [address] [address] [address] Vanessa Denis Potassium [Moles/Vol] 4.6 mmol/L Normal 3.5-5.1 [facility] Comment on above: Performed By: #### C MP #### [facility] [address] [address] [address] Vansesa Denis Protein [Mass/Vol] 7.4 g/dL Normal 6.4-8.2 [facility] Comment on above: Performed By: #### C MP #### [facility] [address] [address] [address] Vanessa Denis Sodium [Moles/Vol] 138 mmol/L Normal 136-145 [facility] Comment on above: Performed By: #### C MP #### [facility] [address] [address] [address] Vanessa Denis Urea nitrogen [Mass/Vol] 24.0 mg/dL Critically high 7.0-18.0 [facility] Comment on above: Performed By: #### C MP #### [facility] [address] [place] [address] Dr. Vanessa Denis Urea nitrogen/Creatinine [Mass ratio] 20.9 mg/mg Normal [facility] Comment on above: Performed By: #### C MP #### [facility] [address] [address] [address] Vanessa Denis TSHon 05-30-2022 TSH 2.067 uIU/mL Normal 0.358-3.740 [facility] Comment on above: Performed By: #### L IPID, TSH #### [facility] [address] [place] [address] Dr. Vanessa Denis Vital Signs Date Time Vital Sign Value Performing Clinician Facility 04-18-2023 00:39-0500 Diastolic blood pressure 95 mm[Hg] [facility] 04-18-2023 00:39-0500 Heart rate 74 /min [facility] El[facility] 04-18-2023 00:39-0500 Mean blood pressure 117 mm[Hg] [facility] 04-18-2023 00:39-0500 Respiratory rate 22 /min [facility] 04-18-2023 00:39-0500 SaO2% (BldA) [Mass fraction] 97 % Kaylinn D[facility]ken [facility] 04-18-2023 00:39-0500 Systolic blood pressure 161 mm[Hg] Kaylinn D[facility]ken [facility] 04-17-2023 23:43-0500 Diastolic blood pressure 71 mm[Hg] Kaylinn D[facility] 04-17-2023 23:43-0500 Heart rate 63 /min Kaylinn D[facility] 04-17-2023 23:43-0500 Mean blood pressure 98 mm[Hg] Kaylinn D[facility] 04-17-2023 23:43-0500 Respiratory rate 15 /min Kaylinn D[facility] 04-17-2023 23:43-0500 SaO2% (BldA) [Mass fraction] 96 % Kaylinn Dokken [facility] 04-17-2023 23:43-0500 Systolic blood pressure 151 mm[Hg] Kaylinn D[facility] 04-17-2023 23:23-0500 Body temperature 97.88 [degF] Kaylinn D[facility] 04-17-2023 23:23-0500 Diastolic blood pressure 82 mm[Hg] Kaylinn D[facility] 04-17-2023 23:23-0500 Heart rate 68 /min Kaylinn D[facility] 04-17-2023 23:23-0500 Mean blood pressure 99 mm[Hg] Kaylinn Dokken [facility] 04-17-2023 23:23-0500 Respiratory rate 20 /min [facility]linn Dok[facility] 04-17-2023 23:23-0500 SaO2% (BldA) [Mass fraction] 94 % Kaylinn Dokken [facility] 04-17-2023 23:23-0500 Systolic blood pressure 134 mm[Hg] Kaylinn Dok[facility] 04-17-2023 22:39-0500 Respiratory rate 18 /min [facility] D[facility] 04-17-2023 21:50-0500 Respiratory rate 18 /min [facility] 04-17-2023 20:50-0500 Body temperature 98.06 [degF] [facility] D[facility] 04-17-2023 20:50-0500 Heart rate 72 /min [facility] Dok[facility] 04-17-2023 20:50-0500 Respiratory rate 18 /min Kaylinn Dok[facility] 04-17-2023 20:29-0500 Body temperature 98.06 [degF] Kaylinn Dokken [facility] 04-17-2023 20:29-0500 Heart rate 76 /min Kaylinn Dokken [facility] 02-23-2023 13:40-0400 Body height 152.4 cm Nicolás Orlando Other [facility] Other 02-23-2023 13:40-0400 Body mass index (BMI) [Ratio] 34.72 kg/m2 Nicolás Orlando Other [facility] Other 02-23-2023 13:40-0400 Body temperature 96.8 [degF] Nicolás Orlando Other [facility] Other 02-23-2023 13:40-0400 Body weight 80.65 kg Nicolás Orlando Other [facility] Other 02-23-2023 13:40-0400 Diastolic blood pressure 82 mm[Hg] Nicolás Orlando Other [facility] Other 02-23-2023 13:40-0400 Respiratory rate 20 /min Nicolás Orlando Other [facility] Other 02-23-2023 13:40-0400 SaO2% (BldA) [Mass fraction] 99 % Nicolás Orlando Other [facility] Other 02-23-2023 13:40-0400 Systolic blood pressure 132 mm[Hg] Nicolás Orlando Other [facility] Other 12-31-2022 09:00-0400 Body height 152.4 cm Nicolás Orlando Other [facility] Other 12-31-2022 09:00-0400 Body mass index (BMI) [Ratio] 32.14 kg/m2 Nicolás Orlando Other [facility] Other 12-31-2022 09:00-0400 Body temperature 96.3 [degF] Nicolás Orlando Other [facility] Other 12-31-2022 09:00-0400 Body weight 74.66 kg Nicolás Orlando Other [facility] Other 12-31-2022 09:00-0400 Diastolic blood pressure 56 mm[Hg] Nicolás Orlando Other [facility] Other 12-31-2022 09:00-0400 Respiratory rate 20 /min Nicolás Orlando Other [facility] Other 12-31-2022 09:00-0400 SaO2% (BldA) [Mass fraction] 98 % Nicolás Orlando Other [facility] Other 12-31-2022 09:00-0400 Systolic blood pressure 91 mm[Hg] Nicolás Orlando Other [facility] Other Encounters Encounter Date Encounter Type Care Provider Facility Start: 06-30-2023 ambulatory KEN OZUNA Facili ty:[facility] Start: 05-25-2023 ambulatory KEN OZUNA Facility : [facility] Start: 04-17-2023 End: 04-18-2023 Emergency department patient visit DO Nancy Stern Facility:[facility] [place] Start: 04-17-2023 End: 04-18-2023 Emergency department patient visit Nancy Stern [facility] Start: 04-08-2023 End: 04-08-2023 ambulatory Nicolás Orlando Other [facility] Other Start: 12-13-2023 Telephone encounter Nicolás Orlando [facility] Start: 02-27-2023 ambulatory KEN OZUNA Facility :[facility] Start: 02-23-2023 End: 02-23-2023 ambulatory Nicolás Orlando Other [facility] Other Start: 02-23-2023 Office outpatient vi sit 25 minutes Nicolás Orlando [facility] Start: 12-31-2022 End: 12-31-2022 ambulatory Nicolás Orlando Other [facility] Other Start: 12-31-2022 Office outpatient ne w 45 minutes Nicolás Orlando [facility] Start: 08-13-2022 End: 08-13-2022 ambulatory DARRION SHAMMO Facility:[facility] Start: 08-11-2022 End: 08-11-2022 ambulatory DARRION SHAMMO Facility:[facility] Start: 05-30-2022 End: 05-31-2022 ambulatory DARRION SHAMMO Facility:[facility] Start: 05-28-2022 End: 05-28-[address] JENIFER CASTILLO Facility:[facility] Start: 07-08-2021 End: 02-03-2022 ambulatory Carmine Procedures Date Procedure Procedure Detail Performing Clinician Colonoscopy Nancy Stern Tonsillectomy Nancy Stern Payers Date Payer Category Payer Private Health Insurance [id number] 1961 Medicaid [id number] 1961 Medicare [id number] 1950 Unknown [id number] 2.16.84 [id number] 1950 Unknown [id number] 2.16.84 [id number] 1948 Unknown [id number] 2.16.84 [id number] 1948 Unknown [id number] 2.16.84 [id number] 1948 Unknown [id number] 2.16.84 [id number] 1948 Unknown [id number] 2.16.8 [id number] 1948 Unknown [id number] 2.16.8 [id number] 1948 Unknown [id number] 2.16.8 [id number] Social History Date Type Detail Facility Unknown if ever smoked [facility] Other Sex Assigned At [facility] Start: 07-10-2020 Tobacco smoking status Ex-smoker (fi nding) [facility] Functional Status Date Assessment Result Facility 04-17-2023 Functional Status N/A [facility] Discharge instructions 04-18-2023 Note Date [...] Ask your health care provider for a sbgp-ce-hwvh plan for gradually returning to activities. Ask [...] your friends, family, a trusted colleague, and rubber and plastics worker about your injury, symptoms, and restrictions. Have them watch for any new or worsening problems. General instructions Take [id number] and prescription medicines only as told by [...] provider. Document Revised: 02/24/2020 Document Reviewed: 02/24/2020 [employer] Patient Education 2022 [employer] Follow Up Care 04/17/2023 20:26:54 With:RICHARD VARGAS Address: [address] [id number]- [facility] (1) When:04/20/2023 Comments:Follow-up with your primary care provider in 3 to 5 days. If symptoms worsen, do not improve, or new symptoms arise please report back to emergency department for further evaluation. [facility] Evaluation + Plan note 04-17-2023 Note Date [...] Date:06/30/2023 10:00:00 AM Scheduled Provider:KEN OZUNA PA-C Location:[facility] Appointment Type:URO Office Visit [facility] Evaluation note 02-23-2023 Note Date & Type [...] recent gout flare. Continue monitor without medications. [facility] Other Evaluation note 12-31-2022 Note Date & [...] We will check also for paraproteinemia work-up. [facility] Other Evaluation note Note Date & Type Note Facility Evaluation note No Information CX Other History general Narrative - Reported Note [...] TONSILLECTOMY AND ADENOIDECTOMY Hospitalization History SEE ABOVE [facility] Other History general Narrative - Reported Note [...] TONSILLECTOMY AND ADENOIDECTOMY Hospitalization History SEE ABOVE [facility] Other Hospital course Narrative Note Date & Type Note Facility Hospital course Narrative No data available for this section [facility] Progress note Note Date & Type Note Facility Progress note No data available for this section [facility] Summary Purpose Family History No Family History Records FoundNo Family History Records Found No data available for this section No Family History Records Found Advance Directives No Advanced Directives Records FoundNo Advanced Directives Records FoundNo Advanced Directives Records Found Additional Source Comments INFORMATION SOURCE (unrecogn ized section and content) DATE CREATED AUTHOR 02/03/2022 Carmine DATE CREATED AUTHOR AUTHOR'S ORGANIZ ATION 08/22/2022 [facility] DATE CREATED AUTHOR AUTHOR'S ORGANIZ ATION 05/26/2023 [facility] REASON FOR VISIT (unrecogniz ed section and content) [employer]ER [employer]RA[employer] CKD STAGE 4CKD and HTNURO LOGY REFERRL UPDATE Patient Care team informatio n (unrecognized section and content) Personnel Name: SAM KILLIAN, RICHARD Yu Address: Address: [address] [place] [address] FOR RECORDS PERTAINING TO PATIENTS WHO ARE [...] BE BASED ON THE PRIMARY CLINICAL RECORDS. [facility]. provides no warranty or guarantee of the accuracy or completeness of information in this document.
[2023-05-27 07:57] LABS: Hematocrit 33.9 % (36.0-48.0); Hemoglobin 10.4 g/dL (12.0-16.0)
[2023-05-27 11:43] LABS: Alanine Aminotransferase 14 U/L (14-59); Albumin Globulin Ratio 0.7; Alkaline Phosphatase 61 U/L (46-116); Anion Gap 9.3; Aspartate Amino Transferase 13 U/L (15-37); BUN Creatinine Ratio 24.2; Bilirubin Total 0.5 mg/dL (0.2-1.0); Chloride 104 mmol/L (98-107); Chol HDL Ratio 2.2; Cholesterol 122 mg/dL (<=200); Estimated GFR (African America 41 (>=60); Estimated GFR (Non-African Ame 34 (>=60); Globulin 4.1 g/dL; Glucose 113 mg/dL (74-106); HDL Cholesterol 56 mg/dL (40-60); LDL Cholesterol Calculated 55.8 mg/dL; Potassium 4.3 mmol/L (3.5-5.1); Sodium 141 mmol/L (136-145); Thyroid Stimulating Hormone 2.113 uIU/mL (0.358-3.740); Total Protein 7.1 g/dL (6.4-8.2); Triglycerides 51 mg/dL (<=150); VLDL CHOLESTEROL 10.2 mg/dL
[2023-05-27 12:28] LABS: Estimated Average Glucose 143 mg/dL; Glycohemoglobin A1C 6.6 % (4.5-6.2)
== END 2023-05-27 02:40 | disposition home or self-care (01) ==
LOC: LAB 02:39
PROVIDERS: PCP Nurse Practitioner Primary Care; Visit Provider Nurse Practitioner Primary Care
DX: Z00.00 Encounter for general adult medical examination without abnormal findings (principal); Z13.6 Encounter for screening for cardiovascular disorders
CPT/HCPCS: 36415; 80053; 80061; 83036; 84443; 85014; 85018

== ENCOUNTER 2023-06-12 02:28 | Outpatient (REF) | payer MEDICARE, MEDICAID, SELFPAY ==
--- OUTSIDE RECORDS SUMMARY | 2023-06-12 03:09 | XMS_ITS | CCD ---
Author Name Unknown Address [address] [place] [address] Organization [facility] Care Team Providers Care Manager Protein Name Role Phone SHAMMO, DARRION Primary Care [...] Perry Unavailable RICHARD VARGAS Primary Care Physician [phone] KEN OZUNA Attending Unavailable NICOLÁS PERRY Referring Unavailable Nancy Stern Attending Unavailable Doug FERNANDEZ Attending Unavailable FRANDY ROLLINS Referring Unavailable Unavailable Primary Care Provider UnavailDG Carmen Attending Unavailable Eduardo Atkins MD Primary Care Provider Medications Current Medications Medication Drug Class(es) Dates Sig (Normalized) Sig (Original) 0.5 ML tirzepatide 10 MG/ML Auto-Injector [Mounjaro] (2 sources) Mounjaro 5 MG/0. 5ML as directed Subcutaneous ONCE A WEEK Active Acetaminophen (5 sources) Start: 07-10-2020 acetaminophen Refills(s) 0 Start Date: 07/10/20 Status: Ordered take 1 tablet by lei th every four hours Acetaminophen 325 MG 1 tablet as needed Orally every 4 hrs Active [id number] actuat albuterol 0.09 mg/actuat metered dose inhaler (8 sources) beta2-Adrenergic Agonist Albuter ol Sulfate (2.5 [...] Active alendronic acid 70 mg oral tablet (7 sources) Bisphosphonate Start: 06-01-2023 alendronate (F osamax) 70 MG tablet Start: 07-10-2020 take 1 mg by mouth every week alendronate 70 mg oral tablet mg tab(s), Oral, qWeek, Refills(s) 0 Start Date: 07/10/20 Status: Ordered take 1 tablet by lei th once daily Alendronate Sodium 70 MG 1 tablet 30 minutes before the first food, beverage or medicine of the day with plain water Orally Active ascorbic acid 250 mg chewable tablet (5 sources) Vitamin C Start: 05-22-2023 ascorbic acid (Vitamin C) 250 MG chewable tablet aspirin 81 mg delayed release oral tablet (7 sources) Platelet Aggregation Inhibitor, Nonsteroidal Anti-inflammatory Drug Start: 07-10-2020 take 1 mg by mouth once daily aspirin 81 mg Oral EC Tab mg tab(s), Oral, Daily, Refills(s) 0 Start Date: 07/10/20 Status: Ordered brexpiprazole 0.5 mg oral tablet (2 sources) Atypical Antipsychotic Start: 05-28-2023 Rexulti 0.5 MG tablet cholecalciferol 1.25 mg oral capsule (2 sources) Vitamin D Start: 05-28-2023 D3-50 1.25 MG (76338 UT) capsule ergocalciferol 1.25 mg oral capsule (4 sources) Provitamin D2 Compound take 1 capsule by mouth every week Vitamin D (Ergocalcifero l) 1.25 MG (18007 UT) 1 capsule Orally ONCE A WEEK Active ferrous sulfate 325 mg oral tablet (7 sources) Start: 05-26-2023 ferrous sulfate 325 (65 Fe) MG tablet Start: 07-10-2020 ferrous sulfat e Oral, Refills(s) 0 Start Date: 07/10/20 Status: Ordered take 1 tablet by lei th once daily Ferrous Sulfate 325 (65 Fe) MG 1 tablet Orally ONCE A DAY Active furosemide 20 mg oral tablet (7 sources) Loop Diuretic Start: 07-10-2020 take 1 mg by mouth once daily furosemide 20 mg Tab mg tab(s), Oral, Daily, Refills(s) 0 Start Date: 07/10/20 Status: Ordered hydroCHLOROthiazide 12.5 mg / lisinopril 20 mg oral tablet (6 sources) Thiazide Diuretic, Angiotensin Converting Enzyme Inhibitor Start: 06-04-2023 lisinopril-hydro CHLOROthiazide 20-12.5 MG tablet take 1 tablet by lei th every twenty-four hours Lisinopril-hydroCHLOROthiazide 20-12.5 M G 1 tablet Orally [...] 0 Start Date: 07/10/20 Status: Ordered Magnesium (4 sources) take 1 tablet by mouth once daily Magnesium 400 MG 1 tablet with a meal Orally Once a day Active Magnesium 400 MG as directed Orally Active magnesium oxide 400 mg oral tablet (2 sources) Start: 05-28-2023 MAGnesium-Oxide 400 (240 Mg) MG tablet metFORMIN hydrochloride 500 mg oral tablet (1 source) Biguanide Start: 03-16-2021 take 1 mg by mouth once daily metformin 500 mg ER Tab mg tab(s), Oral, Daily, Refills(s) 0 Start Date: 07/10/20 Status: Ordered mounjaro 5 mg/0.5ml solution pen-injector (2 sources) Mounjaro 5 MG/0. 5ML as directed Subcutaneous ONCE A WEEK Active Mounjaro 5 MG/0.5ML solution pen-injector (2 sources) Start: 06-07-2023 Mounjaro 5 MG/0.5ML solution pen-injector ondansetron 4 mg disintegrating oral tablet (4 sources) Serotonin-3 Receptor Antagonist take 1 tablet by mouth every four hours as needed Ondansetron 4 MG 1 tablet on the tongue and allow to dissolve Orally EVERY 4 HOURS NEEDED Active pantoprazole 40 mg extended release oral tablet (7 sources) Proton Pump Inhibitor Start: 07-10-2020 take 1 mg by mouth once daily pantoprazole 40 mg Oral EC Tab mg tab(s), Oral, Daily, Refills(s) 0 Start Date: 07/10/20 Status: Ordered pantoprazole (Pr otoNix) 20 MG EC tablet 1 (one) time each day at the same time 0 Active microencapsulated potassium chloride 20 meq extended release oral tablet (6 sources) Start: 06-02-2023 potassium chlo ride CR (Klor-Con M20) 20 MEQ ER tablet take 1 tablet by lei th every twenty-four hours Potassium Chloride ER 20 MEQ 1 tablet with food Orally Once a day Active QUEtiapine 25 mg oral tablet (1 source) Atypical Antipsychotic Start: 07-10-2020 take 1 mg by mouth three times daily SEROquel 25 mg Tab mg tab(s), Oral, TID, Refills(s) 0 Start Date: 07/10/20 Status: Ordered rosuvastatin calcium 5 mg oral tablet (6 sources) HMG-CoA Reductase Inhibitor take 1 tablet by mouth in the morning rosuvastatin (Crestor) 5 MG tablet Take 5 mg by mouth in the morning. 0 Active sertraline 25 mg oral tablet (2 sources) Serotonin Reuptake Inhibitor Start: 06-02-2023 sertraline (Zoloft) 25 MG tablet SITagliptin 50 mg oral tablet (1 source) Dipeptidyl Peptidase 4 Inhibitor Start: 07-10-2020 take 1 tablet by mouth once daily Januvia 50 mg Tab 50 mg = 1 tab(s), Oral, Daily, # 30 tab(s), Refills(s) 0 Start Date: 07/10/20 Status: Ordered vitamin b12 1 mg extended release oral tablet (2 sources) Vitamin B12 take 1 tablet by mouth [...] DAY Active Vitamin D3 (1 source) Start: 07-10-2020 Vitamin D3 Refills(s) 0 Start Date: 07/10/20 Status: Ordered Problems Active Problems Problem Classification Problem Date Documented Date Episodic/Chronic Acute cerebrovascular disease (1 source) Cerebrovascular accident 07-10-2020 Chronic Asthma (1 source) Asthma 07-10-2020 Chronic Chronic kidney disease (8 sources) Chronic kidney disease stage 4; Translations: [Chronic kidney disease, stage 4 (severe)] Chronic Congestive heart failure; nonhypertensive (1 source) Chronic combined systolic (congestive) and diastolic (congestive) heart failure; Translations: [CHRON COMB SYSTOLIC AND DIASTOLIC CHF] Onset: 3 Chronic Deficiency and other anemia (4 sources) Anemia of renal disease; Translations: [Anemia in chronic kidney disease] Chronic Deficiency and other anemia (3 sources) Anemia in chronic kidney disease Chronic Deficiency and other anemia (1 source) Anemia 07-10-2020 Episodic Diabetes mellitus with complications (7 sources) Disorder of kidney due to diabetes [...] 3 Chronic Genitourinary symptoms and ill-defined conditions (5 sources) Urinary incontinence; Translations: [Unspecified urinary incontinence] Chronic Headache; including migraine (1 source) Headache 07-10-2020 Episodic Heart valve disorders (1 source) Heart murmur duration, short 07-10-2020 Episodic Hypertension with complications and secondary hypertension (8 sources) Hypertensive heart disease with heart failure; Translations: [Chronic kidney disease due to hypertension] Onset: 3 Chronic Late effects of cerebrovascular disease (4 sources) Sequelae of cerebral infarction; Translations: [Unspecified sequelae of cerebral infarction] Onset: 4 06-09-2023 Chronic Miscellaneous mental health disorders (1 source) Mental disorder 07-10-2020 Chronic Osteoarthritis (1 source) Arthritis 07-10-2020 Chronic Other aftercare (1 source) 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 hypoglycemic drugs; Translations: [GROUP HOME USE ORAL HYPOGLYCEMIC DX] Onset: 3 Episodic Other aftercare (1 source) Other lobsterman (current) drug therapy; Translations: [OTH SPLICER APPRENTICE CURRENT DRUG THERAPY] Onset: 3 Episodic Other diseases of kidney and ureters (4 sources) Secondary hyperparathyroidism; Translations: [Secondary hyperparathyroidism of renal origin] Chronic Other diseases of kidney and ureters (3 sources) Secondary hyperparathyroidism of renal origin Chronic Other injuries and conditions due to external causes (1 source) Injury of head; Translations: [Unspecified injury of head, initial encounter] Onset: 3 Episodic Other lower respiratory disease (4 sources) Hypoxemia; Translations: [HYPOXEMIA] Onset: 3 Episodic Other nervous system disorders (4 sources) Polyneuropathy; Translations: [Polyneuropathy, unspecified] Onset: 4 06-09-2023 Chronic Other nutritional; endocrine; and metabolic disorders (2 sources) Hyperuricemia without signs of inflammatory arthritis and [...] unspecified; Translations: [Hypothyroidism] Onset: 3 07-10-2020 Chronic Past or Other Problems Problem Classification Problem Date Documented Da te Episodic/Chronic Chronic kidney disease (1 source) Chronic kidney disease Results Test Name Value Interpretation Reference Range Facility Physician Referralon 024 Physician Referral [id number] Normal [facility] ABO/Rh History Checkon 04-18 ABO/Rh History Check Patient discharged prior Normal [facility] Comment on above: Performed By: #### 1 [id number], 2226948, [id number], [id number] ####[facility] [address] [place] [address] CT Head or Brain w/o Contras ton [...] Technologist: QUINCY Technical Comments Contrast: None Normal [facility] CT Spine Cervical w/o Contra ston [...] V. Transcribed by: GREG Technologist: QUINCY Normal [facility] Discharge Instructionson Discharge Instructions [id number] Normal [facility] ED Clinical Summaryon 2022 ED Clinical Summary [address] [address] ED Clinical Summary Person Information Name: AVILA VALENZUELA Heather/[facility] Age: 73 Years : 1950 Sex: Female Language: Bulgarian PCP: RICHARD VARGAS MD Marital Status: Single [...] 04/18/2023 00:43:24 04/18/2023 00:43:24 04/18/2023 00:43:24 ADDRESS: [address] [place] [address] [address] [facility] [phone] PHYS DOC NOTES: MEDICAL INFORMATION: Prescriptions Given: [...] Follow up: With: Address: When: RICHARD VARGAS [address] [address] [place] [id number] [facility] (Obsorb In 3 days 04/20/2023 Comments: Follow-up with your primary care provider in 3 to 5 days. If symptoms worsen, do not improve, or new symptoms arise please report back to emergency department for further evaluation. DIAGNOSIS: Closed head injury; Fall Normal [facility] ED Note-Physicianon 04-18-20 ED Note-Physician Basic Information Time Seen: Royal Sullivan PA-C 04/17/2023 20:31 Chief Complaint Pt arrrives [facility] for a fall. Pt states she hit [...] and Complexity of Problems Differential Diagnosis: [] [facility] Data External documents reviewed: [] My EKG [...] RICHARD SAM In 3 days 04/20/2023 EST [address] [place] [address] Business (1) Additional Instructions: Follow-up with your primary care provider in 3 to 5 days. If symptoms worsen, do not improve, or new symptoms arise please report back to emergency department for further evaluation. Patient Education Head Injury, Adult Attestation Patient seen (more content not included)... Normal [facility] Comment on above: Result Comment: Elec tronically Signed By: Royal Sullivan PA-C\.br\Date and Time Signed: 04/17/23 23:30 EST\.br\Electronically Co-Signed By: Nancy Stern DO.br\Date and Time Co-Signed: 04/18/23 01:27 EST ED Patient Education Noteon 04-18-2023 ED Patient [...] Ask your health care provider for a fqvi-cu-ymbs plan for gradually returning to activities. ? [...] your friends, family, a trusted colleague, and location worker about your injury, symptoms, and restrictions. Have them watch for any new or worsening problems. General instructions ? Take lrrz-svl-yjiiwmn and prescription medicines only as told by your health care provider. ? Have someone stay with you for 24 hours after your head injury. This person should watch you for any changes in your symptoms and be ready to seek medical help. ? Keep all follow-up visits as told by your health care pr (more content not included)... Normal [facility] ED Patient Summaryon 023 ED Patient Summary [address] [address] Patient Discharge Instructions Person Information Name: AVILA VALENZUELA Age: 73 Years Arrival Date: 04/17/2023 20:26:34 Discharge Diagnosis: Closed head injury; Fall Primary Care Physician: RICHARD VARGAS MD Provider Information Primary Provider: Nancy Stern DO [employer] Librarian:None The exam and treatment you received in the Emergency Department were for an urgent problem and are not intended as complete care. It is important that you follow up with a doctor, nurse practitioner, or physician?s child development assistant for ongoing care. If your symptoms [...] Follow-up Instructions: With: Address: When: RICHARD VARGAS [address] [address] [place] [phone] [facility] (1) In 3 days 04/20/2023 Comments: Follow-up [...] opioids can be used to help relieve egjcwsjm-ny-iuxxru pain and are often prescribed following a [...] If you (more content not included)... Normal [facility] ED Traumaon 04-18-2023 ED Trauma [id number] Normal [facility] Monitor Recordon 04-18-2023 Monitor Record [id number]#1.00TIFF Normal [facility] Monitor Record [id number]#1.00TIFF Normal [facility] Monitor Record [id number]#1.00TIFF Normal [facility] RAD - Preliminary Cat Scan R eporton 04-18-2023 RAD - Preliminary Cat Scan Report [id number] Normal [facility] U Drug Screenon 04-18-2023 U Amph Scr Negative Invalid Interpretation Code [facility] Comment on above: Performed By: #### 2 [id number] ####[facility] [address] [place] [address] U Cookie Scr Negative Invalid Interpretation Code [facility] Comment on above: Performed By: #### 2 341336 ####[facility] [address] [place] [address] U Benzodia Scr Negative Invalid Interpretation Code [facility] Comment on above: Performed By: #### 2 356452 ####[facility] [address] [place] [address] U Cannab Scr Negative Invalid Interpretation Code [facility] Comment on above: Performed By: #### 2 817497 ####[facility] [address] [place] [place] [address] U Cocaine Scr Negative Invalid Interpretation Code [facility] Comment on above: Performed By: #### 2 081239 ####[facility] [address] [place] [address] U Opiate Scr Negative Invalid Interpretation Code [facility] Comment on above: Performed By: #### 2 705417 ####[facility] [address] [facility] [place] [address] U PCP Scr Negative Invalid Interpretation Code [facility] Comment on above: Performed By: #### 2 357198 ####[facility] [address] [place] [address] ABO/Rhon 04-17-2023 ABO/Rh Positive Invalid Interpretation Code [facility] Comment on above: Performed By: #### 1 3681722, 9074574, 25414063, [id number] ####[facility] [address] [facility] [place] [address] ABSCon 04-17-2023 ABSC Gel Interp Negative Normal [facility] Comment on above: Performed By: #### 1 0682570, 2541381, 30891360, 01709452 ####[facility] [address] [place] [address] Auto Diffon 04-17-2023 Basophils/100 WBC (Bld) 1.2 % Normal 0.0-2.0 [facility] Comment on above: Order Comment: Order Added by Discern Expert. Performed By: #### 1 3831000, 8070842, 0330917, 2115451, 1965397, 6634967, 6698933, 50349308, 2039519 ####[facility] [address] [place] [address] Basophils/Leukocytes Auto (Bld) [Pure # fraction] 0.1 E9/L Normal 0.0-0.2 [facility] Comment on above: Order Comment: Order Added by Discern Expert. Performed By: #### 1 1764534, 1091358, 9846344, 7141196, 6296103, 9936331, 2874192, 28749896, 8135892 ####[facility] [address] [place] [address] Eosinophils/100 WBC (Bld) 1.3 % Normal 0.0-8.0 [facility] Comment on above: Order Comment: Order Added by Discern Expert. Performed By: #### 1 2583931, 8484813, 0254405, 5843165, 9370301, 0770608, 4219554, 06928616, 5102757 ####[address] [address] Eosinophils/Leukocytes Auto (Bld) [Pure # fraction] 0.1 E9/L Normal 0.0-0.5 [facility] Comment on above: Order Comment: Order Added by Discern Expert. Performed By: #### 1 3061862, 1043638, 0322418, 1646670, 5596352, 7175711, 4379886, 22761516, 1043979 ####[address] [address] Lymphocytes/100 WBC (Bld) 23.6 % Normal 14.0-50.0 [facility] Comment on above: Order Comment: Order Added by Jason Expert. Performed By: #### 1 9776792, 7685145, 6530694, 3683648, 9654384, 1329003, 3586987, 05021929, 9137658 ####[address] [address] Lymphocytes/Leukocytes Auto (Bld) [Pure # fraction] 1.8 E9/L Normal 1.0-4.0 [facility] Comment on above: Order Comment: Order Added by Jason Expert. Performed By: #### 1 0272018, 2032448, 0995486, 2295463, 3790896, 8746120, 5202602, 88459369, 8251918 ####[address] [place] [address] Monocytes/100 WBC (Bld) 10.1 % Normal 4.0-14.0 [facility] Comment on above: Order Comment: Order Added by Jason Expert. Performed By: #### 1 7636559, 4284095, 8216428, 2431035, 8924934, 3092457, 0328186, 95620036, 9513385 ####[facility] [address] [place] [address] Monocytes/Leukocytes Auto (Bld) [Pure # fraction] 0.8 E9/L Normal 0.2-1.0 [facility] Comment on above: Order Comment: Order Added by Discern Expert. Performed By: #### 1 1923865, 1855474, 6047927, 1743031, 7556448, 4583575, 5251188, 13728470, 6817272 ####[facility] [address] [place] [address] Neutrophils/100 WBC (Bld) 63.8 % Normal 36.0-75.0 [facility] Comment on above: Order Comment: Order Added by Discern Expert. Performed By: #### 1 7140839, 6719372, 1251905, 4440880, 0697433, 0059252, 7079060, 78160621, 7751143 ####[address] [place] [address] Neutrophils/Leukocytes Auto (Bld) [Pure # fraction] 4.9 E9/L Normal 2.0-7.5 [facility] Comment on above: Order Comment: Order Added by Discern Expert. Performed By: #### 1 1778531, 8320817, 2874706, 0576555, 3531576, 0840158, 1144995, 69730039, 1976435 ####[address] [place] [address] BLOOD BANKOrdered By: Karina Stafford on 04-17-2023 ABO/Rh Interp Positive Invalid Interpretation Code [facility] BB Subsection ABSC Gel Interp Negative (04/17/23 8:42 PM) Normal [facility] BB Subsection BMPon 04-17-2023 Anion gap [Moles/Vol] 14 mmol/L Normal 6-16 [facility] Comment on above: Performed By: #### 1 0640960, 3921544, 4751300, 1938229, 0625236, 7171898, 3853191, 23432030, 1097337 ####[address] [place] [address] BUN/Creat Ratio 21 No Units High 10-20 [facility] Comment on above: Performed By: #### 1 3037826, 2841044, 1440157, 3006539, 3582744, 1255902, 2002668, 41249273, 8113339 ####[facility] [address] [place] [address] Calcium [Mass/Vol] 9.6 mg/dL Normal 8.9-11.1 [facility] Comment on above: Performed By: #### 1 8262287, 8228282, 9097097, 5512546, 6953901, 7642455, 9625114, 91230520, 6896114 ####[facility] [address] [place] [address] Chloride [Moles/Vol] 104 mmol/L Normal 101-111 [facility] Comment on above: Performed By: #### 1 7796064, 7947735, 8924762, 9934968, 1050674, 8366002, 1815641, 97342030, 1164731 ####[facility] [address] [place] [address] CO2 [Moles/Vol] 28 mmol/L Normal 21-31 [facility] Comment on above: Performed By: #### 1 4669541, 8172175, 0256150, 2590476, 8973203, 9096233, 6588197, 11796409, 6475532 ####[facility] [address] [place] [address] Creatinine [Mass/Vol] 1.7 mg/dL High 0.5-1.3 [facility] Comment on above: Performed By: #### 1 0813055, 7786205, 8741349, 5379418, 8780035, 1570552, 0121776, 12564842, 9426711 ####[facility] [address] [place] [address] Glucose [Mass/Vol] 135 mg/dL Normal 55-199 [facility] Comment on above: Performed By: #### 1 8245819, 4966212, 9797364, 2006335, 3643642, 6993368, 4048558, 24406869, 2456460 ####[facility] [address] [place] [address] Potassium [Moles/Vol] 3.7 mmol/L Normal 3.5-5.3 [facility] Comment on above: Performed By: #### 1 5507490, 2482057, 2159555, 8606084, 2711934, 3980711, 9410586, 12482386, 0722224 ####[facility] [address] [place] [address] Sodium [Moles/Vol] 142 mmol/L Normal 135-145 [facility] Comment on above: Performed By: #### 1 2658804, 0794036, 0667285, 8344686, 0259567, 0519143, 3300579, 11495288, 3972698 ####[address] [place] [address] Urea nitrogen [Mass/Vol] 36 mg/dL High 5-21 [facility] Comment on above: Performed By: #### 1 2381734, 3598958, 1346321, 9687137, 0048145, 7932325, 2810821, 43416181, 5587687 ####[address] [place] [address] Blood Bank ID#on 04-17-2023 BBID# [id number] Invalid Interpretation Code [facility] Comment on above: Performed By: #### 1 4187462, 6722069, 29583228, 83007680 ####[address] [place] [address] CBC w/ Auto Diffon 3 Erythrocyte distribution width (RBC) [Ratio] 13.8 % Normal 10.9-14.2 [facility] Comment on above: Performed By: #### 1 8208808, 1560726, 3323885, 4780886, 8190504, 8699318, 4558489, 41514158, 4370913 ####[address] [place] [address] Hematocrit (Bld) [Volume fraction] 31.5 % Low 34.0-46.0 [facility] Comment on above: Performed By: #### 1 5153199, 5568467, 1342206, 0104301, 3384378, 6079797, 6609359, 47519762, 8060699 ####[address] [place] [id number] Hemoglobin (Bld) [Mass/Vol] 10.1 g/dL Low 12.0-16.0 [facility] Comment on above: Performed By: #### 1 8027478, 0712935, 2858086, 8245377, 0931103, 2010508, 5808368, 82713839, 8328220 ####[place] [address] MCH (RBC) [Entitic mass] 29.4 pg Normal 27.0-34.0 [facility] Comment on above: Performed By: #### 1 6276041, 2797140, 8253422, 8744280, 2074709, 6505963, 8515311, 66433445, 1541089 ####[address] [address] MCHC (RBC) [Mass/Vol] 32.1 g/dL Normal 31.4-36.0 [facility] Comment on above: Performed By: #### 1 8382611, 3380290, 1212446, 7866096, 2342056, 4748792, 1221346, 81739154, 9548567 ####[address] [place] [address] MCV (RBC) [Entitic vol] 91.4 fL Normal 80.0-100.0 [facility] [facility] Comment on above: Performed By: #### 1 [id number], 6176874, 4756449, 2322048, 3566913, 6153142, 5658659, 60743965, 4360017 ####[facility] [address] [place] [address] Platelet mean volume (Bld) [Entitic vol] 8.9 fL Normal 6.4-10.8 [facility] Comment on above: Performed By: #### 1 [id number], 6978156, 0332748, 4292673, 8111696, 2471014, 4361233, 98781491, 6667956 ####[address] [place] [address] Platelets (Bld) [#/Vol] 271.0 E9/L Normal 150.0-500.0 [facility] Comment on above: Performed By: #### 1 1436649, 0911874, 7977787, 4284487, 0489573, 9704351, 5262960, 21186679, 1200944 ####[address] [address] RBC (Bld) [#/Vol] 3.4 E12/L Low 4.3-5.9 [facility] Comment on above: Performed By: #### 1 2316413, 5733206, 6597924, 9573148, 8625867, 5983421, 3578594, 09119736, 8329058 ####[address] [address] WBC corrected for nucl RBC Auto (Bld) [#/Vol] 7.7 E9/L Normal 4.0-11.0 [facility] Comment on above: Performed By: #### 1 0742175, 7613802, 0999628, 4296163, 5251549, 1348267, 2324605, 82273849, 1575697 ####[address] [place] [address] CHEMISTRYOrdered By: Autumn Renteria on 04-17-2023 U [...] 32.6 s Normal 25.1 - 36.5 second(s) [facility] Auto Coag Comment on [...] the same coagulation reagent and instrumentation as [facility]. Currently there are no coagulation studies available worldwide for children to 14 days, and no normal ranges. Heparin therapeutic range (represented by Anti-Factor Xa activity of 0.2 - 0.4 U/mL) corresponds to PTT of 56.6 - 109.0 sec. INR Coag (PPP) [Relative time] 1.2 {INR} Invalid Interpretation Code [facility]ag Comment on above: Interpretive Data: I NR results are specifically intended to assess patients stabilized on long-term Anticoagulation therapy suggested INR s Less Intensive Anticoagulation 2.0 3.0 Conventional Range 3.0 4.5 PT Coag (PPP) [Time] 13.1 s High 9.4 - 1 2.5 second(s) [facility] Auto Coag Comment on [...] the same coagulation reagent and instrumentation as [facility]. Currently there are no coagulation studies available worldwide for children to 14 days, and no normal ranges. Consent for Treatmenton 03-28 Consent for Treatment [id number] 32#1.00TIFF Normal [facility] Ethanolon 04-17-2023 Ethanol Lvl 83 mg/dL Abnormal <=7 [facility] Comment on above: Result Comment: Crit ical Result S_ETOH:[id number] Called to and read back by: TAI BARBA at: 04/17/2023 21:19:24 by:CADY RENTERIA Critical Result Verified by Repeat Analysis Performed By: #### 2 [id number] ####[facility] [id number] HEMATOLOGYOrdered By: SYSTEM SYSTEM on 04-17-2023 Basophils/100 WBC (Bld) 1.2 % Normal 0.0 - 2.0 % [facility] HemeAutoSS Basophils/Leukocytes Auto (Bld) [Pure # fraction] [...] 271.0 E9/L Normal 150.0 - 500.0 E9/L [facility] HemeAutoSS RBC (Bld) [#/Vol] 3.4 E12/L Low 4.3 - 5.9 E12/L [facility] HemeAutoSS WBC corrected for nucl RBC Auto (Bld) [#/Vol] 7.7 E9/L Normal 4.0 - 11.0 E9/L [facility] HemeAutoSS Hep Func Panelon 04-17-2023 Albumin [Mass/Vol] 4.1 g/dL Normal 3.3-5.0 [facility] Comment on above: Performed By: #### 1 6167169, 9927647, 4229070, 9726054, 2863862, 0309185, 7413266, 42964247, 0618257 ####[address] [place] [address] Albumin/Globulin [Mass ratio] 1.2 {ratio} Normal 1.1-2.2 [facility] Comment on above: Performed By: #### 1 1620703, 6157492, 6225127, 2511172, 1258557, 8031137, 8972394, 11255569, 3908044 ####[facility] [address] [place] [address] Alk Phos 68 Int._Unit/L Normal 21-98 [facility] Comment on above: Performed By: #### 1 9014176, 9935508, 2143283, 5135393, 7726621, 3353646, 5354205, 91223167, 4247086 ####[facility] [address] [place] [address] ALT 14 Int._Unit/L Normal 6-46 [facility] Comment on above: Performed By: #### 1 7289198, 7239974, 1499961, 0677849, 4034414, 4590736, 2744223, 51807219, 7451525 ####[facility] [address] [place] [address] AST 14 Int._Unit/L Normal 5-43 [facility] Comment on above: Performed By: #### 1 1720881, 7956618, 8298395, 1296719, 9466332, 1673038, 1993090, 72320578, 4948279 ####[facility] [address] [place] [address] Bili Direct 0.2 mg/dL Normal 0.0-0.4 [facility] Comment on above: Performed By: #### 1 3231428, 6992329, 9726968, 0547380, 3029769, 4413136, 2031456, 94676609, 4965252 ####[address] [place] [address] Bili Indirect 0.6 mg/dL Normal 0.1-0.9 [facility] Comment on above: Performed By: #### 1 8055890, 5931409, 2694013, 8617257, 7202577, 4984225, 7365904, 65783095, 4750722 ####[address] [address] Bili Total 0.8 mg/dL Normal 0.0-1.1 [facility] Comment on above: Performed By: #### 1 2375384, 1607313, 5042977, 8915145, 1643928, 4950879, 2623816, 73775507, 0579503 ####[address] [place] [address] Globulin (S) [Mass/Vol] 3.4 g/dL Normal 1.4-4.0 [facility] Comment on above: Performed By: #### 1 0578098, 2576628, 0175362, 9135807, 9503082, 2681637, 8830781, 70132825, 6280262 ####[address] [place] [address] Protein [Mass/Vol] 7.5 g/dL Normal 6.0-7.8 [facility] Comment on above: Performed By: #### 1 0127753, 5591180, 4329282, 1196661, 4474481, 9611230, 1842389, 09602381, 9028493 ####[facility] [address] [place] [address] Lactic Acidon 04-17-2023 Lactic Acid Lvl 2.1 mmol/L Normal 0.5-2.2 [facility] Comment on above: Performed By: #### 1 7490895, 0679559, 2190199, 2096048, 1175224, 8262460, 4235824, 64507344, 5358384 ####[facility] [address] [place] [address] Lipase Levelon 04-17-2023 Lipase Lvl 235 unit/L High 13-58 [facility] Comment on above: Performed By: #### 1 1722061, 9107992, 6743285, 1925685, 6811093, 4815546, 1401897, 56669990, 0348159 ####[facility] [address] [place] [address] PT & PTTon 04-17-2023 aPTT Coag (PPP) [Time] 32.6 second(s) Normal 25.1-36.5 [facility] Comment on above: Result Comment: Para [...] the same coagulation reagent and instrumentation as [facility]. Currently there are no coagulation studies available worldwide for children to 14 days, and no normal ranges. Heparin therapeutic range (represented by Anti-Factor Xa activity of 0.2 - 0.4 U/mL) corresponds to PTT of 56.6 - 109.0 sec. Performed By: #### 1 8494356, 0230724, 9868647, 4377165, 0928840, 6485598, 1216469, 27919494, 8427105 ####[facility] [address] [place] [address] INR Coag (PPP) [Relative time] 1.2 {INR} Invalid Interpretation Code [facility] Comment on above: Result Comment: INR results are specifically intended to assess patients stabilized on long-term Anticoagulation therapy suggested INR?s ?Less Intensive Anticoagulation? 2.0 ? 3.0 Conventional Range 3.0 ? 4.5 Performed By: #### 1 5381196, 7002097, 1481449, 0746832, 3924628, 2981835, 8990321, 80109379, 1198332 ####[facility] [address] [place] [address] PT Coag (PPP) [Time] 13.1 second(s) High 9.4-12.5 [facility] Comment on above: Result Comment: 15 [...] the same coagulation reagent and instrumentation as [facility]. Currently there are no coagulation studies available worldwide for children to 14 days, and no normal ranges. Performed By: #### 1 4823114, 1894355, 6775599, 2754830, 0717809, 2111764, 9055694, 35799581, 0936966 ####[facility] [address] [place] [address] Pre-Arrival Noteon Pre-Arrival Note Pre-Arrival Summary Name: , [facility] Current Date: 04/17/2023 20:28:42 EST Gender: Female Date of : Age: 73 Pre-Arrival Type: EMS ETA: 04/17/2023 20:52:00 EST Primary Care Physician: Presenting Problem: Fall, Hit head Pre-Arrival User: Bernadine Littlejohn RN Referring Source: Location: [place] Completion Date/Time: 04/17/2023 20:22:00 [facility] Emergency Department Pre-Hospital Report Form ___ Vital Signs: 107/54, 80HR, 97% RA Pre-Hospital Report: Fall, Hit head on table Treatment in Route: 2LAC Response to Treatment: Misc. Issues: Normal [facility] Troponinon 04-17-2023 Troponin 8.90 pg/mL Low 10.10-27.10 [facility] Comment on above: Result Comment: The 95% CI (Confidence Interval) PPV (Positive Predictive Value) for myocardial infarction in females is 38 pg/mL, in males 51 pg/mL. The results should be used in conjunction with clinical conditions of myocardial infarction. (Access High Sensitivity Troponin I Instructions For Use, Jessica Jarrett, November 2017) Performed By: #### 1 6456906, 4271583, 7508284, 7759974, 5579776, 8482626, 8365118, 33069058, 7424040 ####[facility] [address] [place] [address] eGFRon 04-17-2023 eGFR 31 mL/min/1.73 m2 Low >=59 [facility] Comment on above: Order Comment: Order added by Discern Expert. Performed By: #### 1 5637817, 0866835, 1227098, 0883348, 5032362, 3987206, 8358941, 34345277, 2271026 ####[facility] [address] [facility] [place] [address] GLYCOHEMOGLOBIN A1Con 2022 ADA RECOMMENDATION SEE BELOW Normal [facility] Comment on above: Result Comment: ADA RECOMMENDED LIMIT 4.0 - 6.0 ADA THERAPEUTIC TARGET < 7.0 ACTION SUGGESTED > 7.0 Performed By: #### A 1C #### [facility] [address] [place] [address] Dr. Vanessa Denis Glucose [Mass/Vol] 223 mg/dL Normal [facility] Comment on above: Performed By: #### A 1C #### [facility] [address] [place] [address] Dr. Vanessa Denis HbA1c (Bld) [Mass fraction] 9.4 % Critically high 4.5-6.2 [place] Comment on above: Performed By: #### A 1C #### [facility] [address] [place] [address] Dr. Vanessa Denis PROF 14(COMP METB)on 023 Albumin [Mass/Vol] 3.4 g/dL Normal 3.4-5.0 [facility] Comment on above: Performed By: #### C MP #### [facility] [address] [place] [address] Dr. Vanessa Denis Albumin/Globulin [Mass ratio] 0.8 {ratio} Normal [place] Comment on above: Performed By: #### C MP #### [facility] [address] [place] [address] Dr. Vanessa Denis ALP [Catalytic activity/Vol] 71 U/L Normal 46-116 [facility] Comment on above: Performed By: #### C MP #### [facility] [address] [place] [address] Dr. Vanessa Denis ALT [Catalytic activity/Vol] 25 U/L Normal 14-59 [facility] Comment on above: Performed By: #### C MP #### [facility] [address] [place] [address] Dr. Vanessa Denis Anion gap [Moles/Vol] 6.7 mmol/L Normal [place] Comment on above: Performed By: #### C MP #### [facility] [address] [place] [address] Dr. Vanessa Denis AST [Catalytic activity/Vol] 19 U/L Normal 15-37 [place] Comment on above: Performed By: #### C MP #### [facility] [address] [address] [address] Vanessa Denis Bilirubin [Mass/Vol] 0.9 mg/dL Normal 0.2-1.0 [place] Comment on above: Performed By: #### C MP #### [facility] [address] [address] [address] Vanessa Denis Calcium [Mass/Vol] 9.5 mg/dL Normal 8.5-10.1 [facility] Comment on above: Performed By: #### C MP #### [facility] [address] [place] [address] Dr. Vanessa Denis Chloride [Moles/Vol] 102 mmol/L Normal 98-107 [place] Comment on above: Performed By: #### C MP #### [facility] [address] [place] [address] Dr. Vanessa Denis CO2 [Moles/Vol] 35.2 mmol/L Critically high 21.0-32.0 [place] Comment on above: Performed By: #### C MP #### [facility] [address] [place] [address] Dr. Vanessa Denis Creatinine [Mass/Vol] 1.23 mg/dL Critically high 0.55-1.02 [place] Comment on above: Performed By: #### C MP #### [facility] [address] [place] [address] Dr. Vanessa Denis EGFR-AF [place] 52 mL/min/1.73m2 Critically low >=60 [facility] Comment on above: Performed By: #### C MP #### [facility] [address] [place] [address] Dr. Vanessa Denis EGFR-NON AF [place] 43 mL/min/1.73m2 Critically low >=60 [place] Comment on above: Performed By: #### C MP #### [facility] [address] [place] [address] Dr. Vanessa Denis Globulin (S) [Mass/Vol] 4.1 g/dL Normal [place] Comment on above: Performed By: #### C MP #### [facility] [address] [address] [address] Vanessa Denis Glucose [Mass/Vol] 267 mg/dL Critically high 74-106 [facility] Comment on above: Performed By: #### C MP #### [facility] [address] [address] [address] Vanessa Denis Potassium [Moles/Vol] 4.9 mmol/L Normal 3.5-5.1 [place] Comment on above: Performed By: #### C MP #### [facility] [address] [address] [address] Vanessa Denis Protein [Mass/Vol] 7.5 g/dL Normal 6.4-8.2 [facility] Comment on above: Performed By: #### C MP #### [facility] [address] [place] [address] Dr. Vanessa Denis Sodium [Moles/Vol] 139 mmol/L Normal 136-145 [facility] Comment on above: Performed By: #### C MP #### [facility] [address] [address] [address] Vanessa Denis Urea nitrogen [Mass/Vol] 26.0 mg/dL Critically high 7.0-18.0 [place] Comment on above: Performed By: #### C MP #### [facility] [address] [place] [address] Dr. Vanessa Denis Urea nitrogen/Creatinine [Mass ratio] 21.1 mg/mg Normal [place] Comment on above: Performed By: #### C MP #### [facility] [address] [place], [place] [id number] Dr. Vanessa Denis CTA CHEST WO W [...] TWYLA CONTEH Date: 2022-05-30 14:23 Normal [facility] GLYCOHEMOGLOBIN A1Con 2022 ADA RECOMMENDATION SEE BELOW Normal [facility] Comment on above: Result Comment: ADA RECOMMENDED LIMIT 4.0 - 6.0 ADA THERAPEUTIC TARGET < 7.0 ACTION SUGGESTED > 7.0 Performed By: #### A 1C #### [facility] [address] [place] [address] Dr. Vanessa Denis Glucose [Mass/Vol] 203 mg/dL Normal [facility] Comment on above: Performed By: #### A 1C #### [facility] [address] [place] [address] Dr. Vanessa Denis HbA1c (Bld) [Mass fraction] 8.7 % Critically high 4.5-6.2 [place] Comment on above: Performed By: #### A 1C #### [facility] [address] [place] [address] Dr. Vanessa Denis HEMOGRAM AND PLATELon 2022 Hematocrit (Bld) [Volume fraction] 45.4 % Normal 36.0-48.0 [place] Comment on above: Performed By: #### H H #### [facility] [address] [place] [address] Dr. Vanessa Denis Hemoglobin (Bld) [Mass/Vol] 14.5 g/dL Normal 12.0-16.0 [place] Comment on above: Performed By: #### H H #### [facility] [address] [place] [address] Dr. Vanessa Denis MCH (RBC) [Entitic mass] 29.0 pg Normal 26.7-34.0 [place] Comment on above: Performed By: #### H H #### [facility] [address] [place] [address] Dr. Vanessa Denis MCHC (RBC) [Mass/Vol] 31.9 g/dL Normal 29.9-35.2 [place] Comment on above: Performed By: #### H H #### [facility] [address] [place] [address] Dr. Vanessa Denis MCV (RBC) [Entitic vol] 90.8 fL Normal 81.0-99.0 [place] Comment on above: Performed By: #### H H #### [facility] [address] [place] [address] Dr. Vanessa Denis PLT 164 103/ul Normal 150-450 [place] Comment on above: Performed By: #### H H #### [facility] [address] [place] [address] Dr. Vanessa Denis RBC 5.00 106/ul Normal 4.20-5.40 [place] Comment on above: Performed By: #### H H #### [facility] [address] [place] [address] Dr. Vanessa Denis WBC 7.6 103/ul Normal 4.0-11.0 [place] Comment on above: Performed By: #### H H #### [facility] [address] [place] [address] Dr. Vanessa Denis LIPID PROFILEon 05-30-2022 CHOL-HDL RATIO NORM SEE BELOW Normal [facility] Comment on above: Result Comment: 3.3 - 4.4 LOW RISK 4.4 - 7.1 AVERAGE RISK 7.1 - 11.0 MODERATE RISK >11.0 HIGH RISK Performed By: #### L IPID, TSH #### [facility] [address] [place] [address] Dr. Vanessa Denis Cholesterol [Mass/Vol] 110 mg/dL Normal <=200 [facility] Comment on above: Performed By: #### L IPID, TSH #### [facility] [address] [address] [address] Vanessa Denis Cholesterol in HDL [Mass/Vol] 51 mg/dL Normal 40-60 [place] Comment on above: Performed By: #### L IPID, TSH #### [facility] [address] [address] [address] Vanessa Denis Cholesterol in LDL [Mass/Vol] 39.4 mg/dL Normal [place] Comment on above: Performed By: #### L IPID, TSH #### [facility] [address] [address] [address] Vanessa Denis Cholesterol.total/Chol esterol in HDL [Mass ratio] 2.2 {ratio} Normal [place] Comment on above: Performed By: #### L IPID, TSH #### [facility] [address] [place] [address] Dr. Vanessa Denis HDL NORMAL > or = 60 mg/dl - LOW CARDIOVASCULAR RISK <40 mg/dl - HIGH CARDIOVASCULAR RISK Normal [place] Comment on above: Performed By: #### L IPID, TSH #### [facility] [address] [address] [address] Vanessa Denis LDL CALC NORMAL SEE BELOW Normal [facility] Comment on above: Result Comment: <100 mg/dl OPTIMAL 100 - 129 mg/dl NEAR OR ABOVE OPTIMAL 130 - 159 mg/dl BORDERLINE HIGH 160 - 189 mg/dl HIGH >190 mg/dl VERY HIGH Performed By: #### L IPID, TSH #### [facility] [address] [place] [address] Dr. Vanessa Denis Triglyceride [Mass/Vol] 98 mg/dL Normal <=150 [facility] Comment on above: Performed By: #### L IPID, TSH #### [facility] [address] [place] [address] Dr. Vanessa Denis VLDL CALC 19.6 mg/dL Normal [place] Comment on above: Performed By: #### L IPID, TSH #### [facility] [address] [place] [address] Dr. Vanessa Denis PROF 14(COMP METB)on 023 Albumin [Mass/Vol] 3.4 g/dL Normal 3.4-5.0 [facility] Comment on above: Performed By: #### C MP #### [facility] [address] [place] [address] Dr. Vanessa Denis Albumin/Globulin [Mass ratio] 0.9 {ratio} Normal [place] Comment on above: Performed By: #### C MP #### [facility] [address] [place] [address] Dr. Vanessa Denis ALP [Catalytic activity/Vol] 68 U/L Normal 46-116 [place] Comment on above: Performed By: #### C MP #### [facility] [address] [place] [address] Dr. Vanessa Denis ALT [Catalytic activity/Vol] 23 U/L Normal 14-59 [place] Comment on above: Performed By: #### C MP #### [facility] [address] [place] [address] Dr. Vanessa Denis Anion gap [Moles/Vol] 10.1 mmol/L Normal [place] Comment on above: Performed By: #### C MP #### [facility] [address] [place] [address] Dr. Vanessa Denis AST [Catalytic activity/Vol] 21 U/L Normal 15-37 [place] Comment on above: Performed By: #### C MP #### [facility] [address] [place] [address] Dr. Vanessa Denis Bilirubin [Mass/Vol] 0.9 mg/dL Normal 0.2-1.0 [place] Comment on above: Performed By: #### C MP #### [facility] [address] [place] [address] Dr. Vanessa Denis Calcium [Mass/Vol] 9.2 mg/dL Normal 8.5-10.1 [facility] Comment on above: Performed By: #### C MP #### [facility] [address] [place] [address] Dr. Vanessa Denis Chloride [Moles/Vol] 101 mmol/L Normal 98-107 [place] Comment on above: Performed By: #### C MP #### [facility] [address] [place] [address] Dr. Vanessa Denis CO2 [Moles/Vol] 31.5 mmol/L Normal 21.0-32.0 [facility] Comment on above: Performed By: #### C MP #### [facility] [address] [place] [address] Dr. Vanessa Denis Creatinine [Mass/Vol] 1.15 mg/dL Critically high 0.55-1.02 [place] Comment on above: Performed By: #### C MP #### [facility] [address] [place] [address] Dr. Vanessa Denis EGFR-AF [place] 56 mL/min/1.73m2 Critically low >=60 [place] Comment on above: Performed By: #### C MP #### [facility] [address] [place] [address] Dr. Vanessa Denis EGFR-NON AF [place] 46 mL/min/1.73m2 Critically low >=60 [place] Comment on above: Performed By: #### C MP #### [facility] [address] [place] [address] Dr. Vanessa Denis Globulin (S) [Mass/Vol] 4.0 g/dL Normal [place] Comment on above: Performed By: #### C MP #### [facility] [address] [place] [address] Dr. Vanessa Denis Glucose [Mass/Vol] 254 mg/dL Critically high 74-106 [facility] Comment on above: Performed By: #### C MP #### [facility] [address] [address] [address] Vanessa Denis Potassium [Moles/Vol] 4.6 mmol/L Normal 3.5-5.1 [place] Comment on above: Performed By: #### C MP #### [facility] [address] [place] [address] Dr. Vanessa Denis Protein [Mass/Vol] 7.4 g/dL Normal 6.4-8.2 [facility] Comment on above: Performed By: #### C MP #### [facility] [address] [address] [address] Vanessa Denis Sodium [Moles/Vol] 138 mmol/L Normal 136-145 [facility] Comment on above: Performed By: #### C MP #### [facility] [address] [place] [address] Dr. Vanessa Denis Urea nitrogen [Mass/Vol] 24.0 mg/dL Critically high 7.0-18.0 [place] Comment on above: Performed By: #### C MP #### [facility] [address] [place] [address] Dr. Vanessa Denis Urea nitrogen/Creatinine [Mass ratio] 20.9 mg/mg Normal [place] Comment on above: Performed By: #### C MP #### [facility] [address] [place] [address] Dr. Vanessa Denis TSHon 05-30-2022 TSH 2.067 uIU/mL Normal 0.358-3.740 [facility] Comment on above: Performed By: #### L IPID, TSH #### [facility] [address] [place] [address] Dr. Vanessa Denis Vital Signs Date Time Vital Sign Value Performing Clinician Facility 06-09-2023 11:52-0500 Body height 152.4 cm Dg Proctor MD Work Phone: [facility] 06-09-2023 11:52-0500 Body mass index (BMI) [Ratio] 32.42 kg/m2 Dg Proctor MD Work Phone: [facility] 06-09-2023 11:52-0500 Body weight 75.3 kg Dg Proctor MD Work Phone: [facility] 04-18-2023 00:39-0500 Diastolic blood pressure 95 mm[Hg] Nancy Stern [facility] 04-18-2023 00:39-0500 Heart rate 74 /min Kaylinn Dokken [facility] 04-18-2023 00:39-0500 Mean blood pressure 117 mm[Hg] Kaylinn Dokken [facility] 04-18-2023 00:39-0500 Respiratory rate 22 /min Kaylinn Dokken [facility] 04-18-2023 00:39-0500 SaO2% (BldA) [Mass fraction] 97 % Kaylinn Dokken [facility] 04-18-2023 00:39-0500 Systolic blood pressure 161 mm[Hg] Kaylinn Dokken [facility] 04-17-2023 23:43-0500 Diastolic blood pressure 71 mm[Hg] Kaylinn Dokken [facility] 04-17-2023 23:43-0500 Heart rate 63 /min Kaylinn Dokken [facility] 04-17-2023 23:43-0500 Mean blood pressure 98 mm[Hg] Kaylinn Dokken [facility] 04-17-2023 23:43-0500 Respiratory rate 15 /min Kaylinn Dokken [facility] 04-17-2023 23:43-0500 SaO2% (BldA) [Mass fraction] 96 % Kaylinn Dokken [facility] 04-17-2023 23:43-0500 Systolic blood pressure 151 mm[Hg] Kaylinn Dokken [facility] 04-17-2023 23:23-0500 Body temperature 97.88 [degF] Kaylinn Dokken [facility] 04-17-2023 23:23-0500 Diastolic blood pressure 82 mm[Hg] Kaylinn Dokken [facility] 04-17-2023 23:23-0500 Heart rate 68 /min Kaylinn Dokken [facility] 04-17-2023 23:23-0500 Mean blood pressure 99 mm[Hg] Kaylinn Dokken [facility] 04-17-2023 23:23-0500 Respiratory rate 20 /min Kaylinn Dokken [facility] 04-17-2023 23:23-0500 SaO2% (BldA) [Mass fraction] 94 % Kaylinn Dokken [facility] 04-17-2023 23:23-0500 Systolic blood pressure 134 mm[Hg] Kaylinn Dokken [facility] 04-17-2023 22:39-0500 Respiratory rate 18 /min Kaylinn Dokken [facility] 04-17-2023 21:50-0500 Respiratory rate 18 /min Kaylinn Dokken [facility] 04-17-2023 20:50-0500 Body temperature 98.06 [degF] Kaylinn Dokken [facility] 04-17-2023 20:50-0500 Heart rate 72 /min Kaylinn Dokken [facility] 04-17-2023 20:50-0500 Respiratory rate 18 /min Kaylinn Dokken [facility] 04-17-2023 20:29-0500 Body temperature 98.06 [degF] Kaylinn Dokken [facility] 04-17-2023 20:29-0500 Heart rate 76 /min Nancy Stern [facility] 02-23-2023 13:40-0400 Body height 152.4 cm Nicolás Maura Other [address] Other 02-23-2023 13:40-0400 Body mass index (BMI) [Ratio] 34.72 kg/m2 Nicolás Maura Other [address] Other 02-23-2023 13:40-0400 Body temperature 96.8 [degF] Nicolás Maura Other [address] Other 02-23-2023 13:40-0400 Body weight 80.65 kg Nicolás Maura Other [address] Other 02-23-2023 13:40-0400 Diastolic blood pressure 82 mm[Hg] Nicolás Maura Other [address] Other 02-23-2023 13:40-0400 Respiratory rate 20 /min Nicolás Maura Other [address] Other 02-23-2023 13:40-0400 SaO2% (BldA) [Mass fraction] 99 % Nicolás Maura Other [address] Other 02-23-2023 13:40-0400 Systolic blood pressure 132 mm[Hg] Nicolás Maura Other [address] Other 12-31-2022 09:00-0400 Body height 152.4 cm Nicolás Maura Other [address] Other 12-31-2022 09:00-0400 Body mass index (BMI) [Ratio] 32.14 kg/m2 Nicolás Maura Other [address] Other 12-31-2022 09:00-0400 Body temperature 96.3 [degF] Nicolás Maura Other [address] Other 12-31-2022 09:00-0400 Body weight 74.66 kg Nicolás Maura Other [address] Other 12-31-2022 09:00-0400 Diastolic blood pressure 56 mm[Hg] Nicolás Maura Other [address] Other 12-31-2022 09:00-0400 Respiratory rate 20 /min Nicolás Maura Other [address] Other 12-31-2022 09:00-0400 SaO2% (BldA) [Mass fraction] 98 % Nicolás Maura Other [address] Other 12-31-2022 09:00-0400 Systolic blood pressure 91 mm[Hg] Nicolás Maura Other [address] Other Encounters Encounter Date Encounter Type Care Provider Facility Start: 06-30-2023 ambulatory KEN Crow ty:TIFFANIE Oliver Start: 06-24-2023 ambulatory Doug FERNANDEZ Facility :[facility] Start: 06-09-2023 Kerri Proctor MD Work Phone: [facility] Start: 06-09-2023 Kerri Proctor MD Work Phone: [facility] Start: 06-09-2023 End: 06-09-2023 ambulatory DG PROCTOR Not Available Start: 06-09-2023 End: 06-09-2023 Office outpatient new 45 minutes Dg Proctor MD Work Phone: [facility] Comment on above: Sequelae of cerebral infarction (Primary Dx); Polyneuropathy Start: 05-25-2023 ambulatory KEN OZUNA Facility : [facility] Start: 05-21-2023 End: 05-21-2023 ambulatory Nicolás Maura Other [address] Other Start: 05-21-2023 Office outpatient vi sit 25 minutes Nicolás Maura [facility] Start: 04-17-2023 End: 04-18-2023 Emergency department patient visit Nancy Amaya Facility:[facility] Start: 04-17-2023 End: 04-18-2023 Emergency department patient [facility] Start: 04-08-2023 End: 04-08-2023 ambulatory Nicolás Maura Other [address] Other Start: 04-08-2023 Telephone encounter Nicolás Maura [facility] Start: 02-27-2023 ambulatory KEN OZUNA Facility : [facility] Start: 02-23-2023 End: 02-23-2023 ambulatory Nicolás Maura Other [address] Other Start: 02-23-2023 Office outpatient vi sit 25 minutes Nicolás Maura [facility] Start: 12-31-2022 End: 12-31-2022 ambulatory Nicolás Maura Other [address] Other Start: 12-31-2022 Office outpatient ne w 45 minutes Nicolás Maura [facility] Start: 08-13-2022 End: 08-13-2022 ambulatory DARRION SHAMMO Facility:[facility] Start: 08-11-2022 End: 08-11-2022 ambulatory DARRION SHAMMO Facility:[facility] Start: 05-30-2022 End: 05-31-2022 ambulatory DARRION SHAMMO Facility:[facility] Start: 05-28-2022 End: 05-28-[address] JENIFER CASTILLO Facility:[facility] Start: 07-08-2021 End: 02-03-2022 ambulatory [place] Procedures Date Procedure Procedure Detail Performing Clinician Colonoscopy Nancy Stern Tonsillectomy Nancy Stern Plan of Treatment Date Care Activity Detail Author Start: 03-07-2024 Pneumococcal Vaccine : 65+ Years (3 - PPSV23 or PCV20) Pneumococcal Vaccine: 65+ Years (3 - PPSV23 or PCV20) [facility] Start: 03-07-2024 Pneumococcal Vaccine : 65+ Years (3 of 3 - PPSV23 or PCV20) Pneumococcal Vaccine: 65+ Years (3 of 3 - PPSV23 or PCV20) [facility] Start: 09-08-2023 End: 09-08-2023 Patient encounter procedure 09/08/2023 1:45 PM EDT Office Visit [facility] [address] [facility] [address] [place] [address] Dg Proctor MD [address] [place] [address] [facility] Start: 1950 Medicare Annual Well ness (AWV) Medicare Annual Wellness (AWV) [facility] Start: 1950 Screening for malign ant neoplasm of colon [facility] Payers Date Payer Category Payer Medicaid MEDICAID [facility] [id number] 2021-Present [phone] [address] [place] [address] Medicaid [id number] 2020 Private Health Insurance [id number] 2013 Medicare MEDICARE MEDICAR E PART B [id number] 2013-[place] [address] Medicare [id number] 1959 Medicaid [id number] 1959 Medicare [id number] 1948 Unknown [id number] 93 1948 Unknown [id number] 93 1948 Unknown [id number] 93 1948 Unknown [id number] 93 1948 Unknown [id number] 93 1948 Unknown [id number] 27 1948 Unknown [id number] 27 1948 Unknown [id number] [id number] 27 1948 Unknown [id number] 27 1948 Unknown [id number] 259 Social History Date Type Detail Facility Unknown if ever smoked [address] Other Sex Assigned At [facility] Start: 07-10-2020 Tobacco smoking status Ex-smoker (finding) [facility] Tobacco smoking status [facility] Tobacco smoking consumption unknown [facility] Start: 1950 Sex Assigned At Not on file [facility] Functional Status Date Assessment Result Facility 04-17-2023 Functional Status N/A [facility] Clinical Notes 12-31-2022 to 06-09-2023 Dg Proctor MD - 06/09/2023 12:27 PM Zena Proctor MD - 06/09/2023 12:26 PM Zena Proctor MD - 06/09/2023 11:15 AM EST Note Date & Type Note Facility 06-09-2023 History of Presen t illness Narrative Associated Problem(s): Polyneuropathy TSH + fT4. Emphasized good A1c control. Associated Problem(s): Sequelae of cerebral infarction Echo c bubble study. ([place] or [place]). US carotids ([facility]). (Continue ASA.) Images from the original note were not included. Outpatient Progress Note Prev Appt: Visit date not found Chief Complaint Patient presents with Memory Loss Assessment and Plan - Sequelae of cerebral infarction Echo c bubble study. ([place] or [place]). US carotids ([facility]). (Continue ASA.) Polyneuropathy TSH + fT4. Emphasized good A1c control. No orders of the defined types were placed in this encounter. Follow-Up - Follow up in about 3 months (around 09/07/2023). History of Present Illness, Associated Treatments and Results - Dx COGNITION / STROKE Tx ASA 81 (+ rosuva) AEs Hx Fmr patient, lost to f/u since 2019. Visit make for memory, but pt denies forgetting names, appts, missing bills, misplacing things, leaving the stove on, etc. No one has mentioned memory to pt. Stroke - None further. 2019 Nov, hemipar R face & hand. -> [facility]. Known DM. Onset Semeiology Imaging US carotids (03/2020, [place]) - < 50% B CT head (12/2019, [place]) - neg Testing Surgery Failed Dx PN Tx AEs Hx Denies pain. Onset [facility] Testing Labs - A1c=6.2, orig 7.5 Surgery Failed Physical Exam - General appearance, mentation, extraocular movements, facial strength and movement, hearing, upper and lower extremity strength and tone, sensation to gross testing, coordination, and gait are normal or at baseline unless noted below. HEENT - ___, unchanged: ___, orig: ___ MS - ___, unchanged: ___, orig: ___ CNN - ___, unchanged: Decr smile R, orig: ___ Motor - ___, unchanged: RUE 4 throughout, orig: ___ Sens - ___, unchanged: Vibr, temp loss distal LEs, orig: ___ Reflex - ___, unchanged: KJ 1B ... AJ 0B, orig: ___ Coord - ___, unchanged: ___, orig: ___ Gait - Rollator, unchanged: Wide, orig: ___ Vestib - ___, unchanged: ___, orig: ___ MSK - ___, unchanged: ___, orig: ___ Other - ___, unchanged: ___, orig: ___ Vital Signs - Visit Vitals Ht 5' Wt 166 lb BMI 32.42 kg/m BSA 1.79 m Review of Systems - . Const: Denies appetite change, fever, chills. Allergy: Denies medication reaction. Ocular: Denies visual acuity change. ENT: Denies hearing change. Endoc: Denies weight loss. Resp: Denies dyspnoea, wheezing. Cardiac: Denies angina, palpitations. GI: Denies nausea, vomiting. Haem: Denies bleeding. : Denies incontinence. MSK: Denies arthralgias, joint oedema. Derm: Denies rash, hair loss. Neuro: Denies ataxia, tremor. Also see HPI for elements of ROS documented therein and for details of positive findings, which shall supersede the foregoing. PMH, PSH, Allergies, FH, SH - No past medical history on file. No past surgical history on file. No Known Allergies No family history on file. Outpatient Encounter Medications as of 06/09/2023 Medication Sig Dispense Refill alendronate (Fosamax) 70 MG tablet ascorbic acid (Vitamin C) 250 MG chewable tablet aspirin 81 MG EC tablet Take 81 mg by mouth in the morning. D3-50 1.25 MG (93027 UT) capsule ferrous sulfate 325 (65 Fe) MG tablet furosemide (Lasix) 20 MG tablet 1 tablet Orally lisinopril-hydroCHLOROthiazide 20-12.5 MG tablet MAGnesium-Oxide 400 (240 Mg) MG tablet Mounjaro 5 MG/0.5ML solution pen-injector pantoprazole (ProtoNix) 20 MG EC tablet 1 (one) time each day at the same time potassium chloride CR (Klor-Con M20) 20 MEQ ER tablet Rexulti 0.5 MG tablet rosuvastatin (Crestor) 5 MG tablet Take 5 mg by mouth in the morning. sertraline (Zoloft) 25 MG tablet No facility-administered encounter medications on file as of 06/09/2023. documented in this encounter [facility] 05-21-2023 Evaluation note Encounter Date Diagnosis Assessment Notes Apr, Chronic kidney disease, stage III (moderate) (ICD-10 - N18.30) She has a CKD due to the longstanding DM and HTN. Her serum creatinine is 1.4 mg/dL. Her renal ultrasound showed bilateral renal cyst with no evidence of kidney mass, hydronephrosis or stones. Discussed with her importance of good DM and HTN control to slow down the progression of CKD. 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 She appears to be euvolemic. Continue current medications. I would recommend to monitor blood pressure at the assisted-living. If she has a high blood pressure above 140 over 90 mmHg then call office. Apr, Diabetes mellitus with chronic kidney disease (ICD-10 - E11.22) Blood sugars are improving. Continue work with PCP for better sugar control. Continue lisinopril for renal protection. She will benefit with SGLT2 inhibitors including Farxiga, Jardiance Invokana. Will defer this decision to the PCP. Continue Mounjaro to slow down the progression of CKD. Apr, Secondary hyperparathyroidism (ICD-10 - N25.81) MBD parameters are within the goal. Continue low phosphorus diet. Continue oral vitamin D. Apr, Anemia of renal disease (ICD-10 - D63.1) Hemoglobin within the goal. Continue oral iron. She has a high level of B12 advised to stop the B12 level. She has mildly elevated free light ratio likely due to the CKD but unremarkable serum immunofixation and SPEP. Apr, Urinary incontinence (ICD-10 - R32) Will refer back to the Dr. Cueva. Apr, Hyperuricemia (ICD-10 - E79.0) She has hyperuricemia due to the CKD but denies any recent gout flare. Continue monitor without medications. Apr, Other This documentation is being amended on 05/25/23 due to an internal data corruption event that occurred on 05/21/23. This data corruption event was NOT the result of any breach, fraud, or malicious third democrat actors and no personal patient information was compromised. [address] Other 12-23-2023 Hospital Discharge instructions Patient Education 04/18/2023 00:43:25 Head Injury, [...] before the first one has healed, can bedangerous. Ask your health care provider when it is safe for you to return to your regular activities, including work or school. Ask your health care provider for a vjck-ai-povy plan for gradually returning to activities. Ask [...] your friends, family, a trusted colleague, and location worker about your injury, symptoms, and restrictions. Have them watch for any new or worsening problems. General instructions Take tyxt-dgq-opnazmd and prescription medicines only as told by [...] provider. Document Revised: 02/24/2020 Document Reviewed: 02/24/2020 [email or web address] Patient Education 2022 [employer]. Follow Up Care 04/17/2023 20:26:54 With:RICHARD VARGAS Address: [address] [place] [address] [facility] (1) When:04/20/2023 Comments:Follow-up with your primary care provider in 3 to 5 days. If symptoms worsen, do not improve, or new symptoms arise please report back to emergency department for further evaluation. [facility]12-22-2023 Evaluation + Plan noteExtracted from: Title:ED Note Author:Royal Sullivan PA-C te:04/17/23 [...] Date:06/30/2023 10:00:00 AM Scheduled Provider:KEN OZUNA PA-C Location:[facility] [place] Appointment Type:URO Office Visit [facility]10-30-2023 Evaluation note* Encounter Date Diagnosis Assessment Notes Treatment Notes Treatment Clinical Notes Jan, CKD (chronic kidney disease) stage [...] mmHg then call office. Jan, Diabetes mellitus wi th chronic kidney disease (ICD-10 - E11.22) Blood [...] every other week. Jan, Anemia of renal dise ase (ICD-10 - D63.1) Hemoglobin within the goal. Continue oral iron. She has a high level of B12 advised to stop the B12 level. She has mildly elevated free light ratio likely due to the CKD but unremarkable serum immunofixation and SPEP. Jan, Urinary incontinence (ICD-10 - R32) Will refer back to the Dr. Cueva. Jan, Hyperuricemia (ICD-1 0 - E79.0) She has hyperuricemia due to the CKD but denies any recent gout flare. Continue monitor without medications. [address] Other [id number] Evaluation note* Encounter Date Diagnosis Assessment Notes Treatment Notes Treatment Clinical Notes Dec, CKD (chronic kidney disease) stage [...] mmHg then call office. Dec, Diabetes mellitus wi th chronic kidney disease (ICD-10 - E11.22) Blood [...] and vitamin D Dec, Anemia of renal dise ase (ICD-10 - D63.1) Continue oral iron. We will check the CBC iron studies B12 and folate level. We will check also for paraproteinemia work-up. [address] Other Evaluation noteNo [employer] Other Evaluation note* Diagnosis Sequelae of cerebral infarction- Primary Unspecified late effects of cerebrovascular disease Polyneuropathy Unspecified hereditary and idiopathic peripheral neuropathy documented [facility] this encounter [facility] - Reported* Type Description Date Medical History LYMPHEDEMA Medical History VARUS FOOT [...] TONSILLECTOMY AND ADENOIDECTOMY Hospitalization History SEE ABOVE [address] Other History general Narrative - Reported* Type Description Date Medical History LYMPHEDEMA Medical History VARUS FOOT [...] TONSILLECTOMY AND ADENOIDECTOMY Hospitalization History SEE AB[facility] [address] Other Hospital course Narrative No data available for this section [facility] data available for this section [facility] Summary Purpose Family History No Family History Records FoundNo Family History Records Found No data available for this section No Family History Records FoundNo Family History Records Found Advance Directives No Advanced Directives Records FoundNo Advanced Directives Records FoundNo Advanced Directives Records FoundNo Advanced Directives Records Found Additional Source Comments INFORMATION SOURCE (unrecogn ized section and content) DATE CREATED AUTHOR 02/03/2022 [place] DATE CREATED AUTHOR AUTHOR'S ORGANIZ ATION 08/22/2022 [facility] DATE CREATED AUTHOR AUTHOR'S ORGANIZ ATION 05/29/2023 [facility] DATE CREATED AUTHOR AUTHOR'S ORGANIZ ATION 06/10/2023 [facility] EPIC REASON FOR VISIT (unrecogniz ed section and content) Reason Comments Memory Loss Patient Care team informatio n (unrecognized section and content) Manager Protein Relationship Specialty Start Date End Date Eduardo Atkins MD [address] [place] [address] PCP - General Family Medicine 06/09/23 FOR RECORDS PERTAINING TO PATIENTS WHO ARE [...] BE BASED ON THE PRIMARY CLINICAL RECORDS. [facility] [employer] [facility]. provides no warranty or guarantee of the accuracy or completeness of information in this document.
[2023-06-12 11:09] LABS: Thyroid Stimulating Hormone 1.665 uIU/mL (0.358-3.740)
[2023-06-12 11:22] LABS: Free T4 1.05 ng/dL (0.76-1.46)
== END 2023-06-12 02:29 | disposition home or self-care (01) ==
LOC: LAB 02:28
PROVIDERS: PCP Nurse Practitioner Primary Care; Visit Provider Psychiatry & Neurology Neurology
DX: D64.9 Anemia, unspecified (principal)
CPT/HCPCS: 36415; 84439; 84443

== ENCOUNTER 2023-06-25 13:37 | Outpatient (OUT) | payer MEDICARE, MEDICAID, SELFPAY ==
--- NOTE | 2023-06-25 14:00 | CA_ITS ---
Patient Name: AVILA VALENZUELA MR#: [id number] : 1950 Exam Date: 06/25/2023 Ordering Doctor: DR. DG PROCTOR M.D. ECHOCARDIOGRAM REPORT PROCEDURE: CA ECHO DOPPLER COMPLETE INDICATIONS: TIA/CVA, PFO COMPARISON: None. DESCRIPTION: COMPLETE ECHOCARDIOGRAM Real-time transthoracic echocardiography with 2D, M-mode, spectral and color flow Doppler performed. QUALITY: Technical quality was good. LEFT VENTRICLE: Normal chamber size. Borderline left ventricular hypertrophy. LV EF: Global left ventricular systolic function is normal. Visually estimated ejection fraction is 60 to 65%. Calculated left ventricular ejection fraction is 67%. No wall motion abnormalities. DIASTOLIC: Grade II diastolic dysfunction. ATRIAL SEPTUM: Agitated saline contrast does not reveal an intra-cardiac shunt. LEFT ATRIUM: Severe dilatation. RIGHT ATRIUM: Mild dilatation. RIGHT VENTRICLE: Normal chamber size. Normal right ventricular systolic function. TRICUSPID VALVE: Normal mobility and thickness. Mild to moderate regurgitation. Severe pulmonary hypertension. RVSP 60mmHg MITRAL VALVE: Mildly thickened with normal mobility. No evidence of mitral valve stenosis. There is no mitral annular calcification. Moderate to severe mitral regurgitation. AORTIC VALVE: Bicuspid appearance. Moderately calcified aortic valve. Moderately diminished mobility. Doppler velocity suggests moderate aortic valve stenosis. DVI 0.27, Vmax 3.05m/s, Mean gradient 37mmHg, SUSANNAH 1.3 cm2. Trivial aortic regurgitation. AORTIC ROOT: Normal diameter and appearance. PULMONIC VALVE: Normal thickness and mobility. No stenosis. Trivial regurgitation. PERICARDIUM: No evidence of pericardial effusion. IVC: Collapses with inspirations. Normal size. CONCLUSION: 1. Global left ventricular systolic function is normal; visually estimated ejection fraction is 60 to 65% 2. Normal right ventricular size and systolic function 3. Borderline increased left ventricular wall thickness 4. Grade 2 diastolic dysfunction 5. Biatrial enlargement 6. Mild to moderate tricuspid regurgitation; severely elevated right ventricular systolic pressure RVSP 60 mmHg 7. Moderate to severe mitral regurgitation 8. Moderate aortic valve stenosis Adult Echocardiography Procedure Report Left Ventricle LVEDD (3.7 - 5.6 cm): 4.84 cm LVESD (2.2 - 4.0 cm): 3.18 cm LVIVS thickness (0.6 - 1.2 cm): 0.98 cm LVPW thickness (0.5 - 1.0 cm): 1.08 cm e': 0.08 m/s E - e': 14.10 LVOT Max Gradient: 2.91 mm[Hg] LVOT Area (cm2): 0.85 m/s Peak Velocity (LVOT): 0.85 m/s Mean Velocity (LVOT): 0.59 m/s LVOT Diameter 1.88 cm Left Ventricular Ejection Fraction: 66.55 % Left Atrium LA Volume Index (2D A2C): 71.95 ml/m2 Left Atrium Systolic Dimension: 4.67 cm Mitral Valve MV E to A Ratio: 1.17 Mitral Valve A-Wave Peak Velocity: 1.02 m/s Mitral Valve E-Wave Peak Velocity: 1.19 m/s Right Ventricle RV Internal Diastolic Dimension: 2.99 cm Aorta AO Root Diam: 2.64 cm Ascending Ao Diam: 3.24 cm Aortic Valve AoV Area (Peak Vijay): 0.90 cm2, 0.78 cm2 AoV Area (VTI): 0.95 cm2, 0.83 cm2 Peak Velocity(Antegrade Flow): 3.05 m/s, 2.46 m/s, 2.51 m/s, 2.46 m/s Peak Gradient(Antegrade Flow): 37.20 mm[Hg], 24.11 mm[Hg], 25.11 mm[Hg], 24.11 mm[Hg] Mean Velocity(Antegrade Flow): 2.29 m/s, 1.77 m/s, 1.95 m/s, 1.86 m/s Mean Gradient(Antegrade Flow): 23.46 mm[Hg], 14.00 mm[Hg], 16.73 mm[Hg], 15.19 mm[Hg] Velocity Time Integral: 83.80 cm, 65.51 cm, 75.69 cm, 65.18 cm Tricuspid Valve Peak Velocity (Regurgitant Flow): 3.67 m/s, 3.51 m/s, 3.76 m/s Pulmonic Valve Mean Gradient: 3.14 mm[Hg], 2.98 mm[Hg] Mean Velocity: 0.84 m/s, 0.85 m/s Peak Velocity: 1.09 m/s, 0.75 m/s Peak Gradient: 2.24 mm[Hg], 5.78 mm[Hg], 3.88 mm[Hg] Right Atrium Right Atrium Systolic Pressure: 44.95 ml, 44.95 ml Dictated by: Bennett Juarez M.D. on 06/26/2023 at 11:15 Approved by: Bennett Juarez M.D. on 06/26/2023 at 11:20
== END 2023-06-25 13:38 | disposition home or self-care (01) ==
LOC: CARD 13:37
PROVIDERS: PCP Nurse Practitioner Primary Care; Visit Provider Psychiatry & Neurology Neurology
DX: I63.50 Cerebral infarction due to unspecified occlusion or stenosis of unspecified cerebral artery (principal); G45.8 Other transient cerebral ischemic attacks and related syndromes; Q21.12 Patent foramen ovale
CPT/HCPCS: 93306

== ENCOUNTER 2023-07-14 10:37 | Outpatient (OUT) | payer MEDICARE, MEDICAID, SELFPAY ==
--- NOTE | 2023-07-14 10:41 | US_ITS ---
[address] [address] Patient Name: AVILA VALENZUELA MRN: [facility]:[id number] date: 1950 Sex: F Assigned Patient Location: Current Patient Location: [place] Accession/Order Number: [id number] Exam Date: 07/14/2023 10:42 Report Date: 07/14/2023 12:14 At the request of: DG PROCTOR Procedure: US carotid duplex BI EXAMINATION: US carotid duplex BI HISTORY: Carotid Stenosis Bilateral I65.23 COMPARISON: No relevant comparison available. TECHNIQUE: Duplex Doppler ultrasound analysis of carotid and vertebral arteries. . Bilateral carotid arterial duplex examination was performed using B-mode, color flow and spectral analysis. Carotid stenosis is reported according to validated velocity parameters, similar to NASCET criteria. FINDINGS: RIGHT CAROTID ARTERY Mild atherosclerotic plaque Subclavian: PSV: 84.0 cm/s cm/s EDV: 9.2 cm/s cm/s CCA: Prox: PSV: 63.2 cm/s cm/s EDV: 14.1 cm/s cm/s Mid: PSV: 71.0 cm/s cm/s EDV: 19.3 cm/s cm/s Distal: PSV: 67.1 cm/s cm/s EDV: 20.6 cm/s cm/s BULB: PSV: 56.7 cm/s cm/s EDV: 16.7 cm/s cm/s ICA: Prox: PSV: 58.0 cm/s cm/s EDV: 18.0 cm/s cm/s Mid: PSV: 67.1 cm/s cm/s EDV: 24.4 cm/s cm/s Distal: PSV: 81.3 cm/s cm/s EDV: 33.5 cm/s cm/s ECA: PSV: 80.0 cm/s cm/s EDV: 10.2 cm/s cm/s VERTEBRAL: PSV: 49.0 cm/s cm/s EDV: 15.4 cm/s cm/s, antegrade ICA/CCA ratio: PSV: 1.2 EDV: 1.6 LEFT CAROTID ARTERY Mild atherosclerotic plaque Subclavian: PSV: 106.5 cm/s cm/s EDV: 0.0 cm/s CCA: Prox: PSV: 77.4 cm/s cm/s EDV: 16.0 cm/s Mid: PSV: 75.8 cm/s cm/s EDV: 24.1 cm/s Distal: PSV: 79.0 cm/s cm/s EDV: 24.1 cm/s BULB: PSV: 64.5 cm/s cm/s EDV: 11.1 cm/s ICA: Prox: PSV: 70.9 cm/s cm/s EDV: 20.8 cm/s Mid: PSV: 83.8 cm/s cm/s EDV: 32.1 cm/s Distal: PSV: 82.2 cm/s cm/s EDV: 24.1 cm/s ECA: PSV: 83.8 cm/s cm/s EDV: 6.3 cm/s VERTEBRAL: PSV: 40.2 cm/s cm/s EDV: 11.1 cm/s , antegrade ICA/CCA ratio: PSV: 1.1 EDV: 1.3 US/US carotid duplex BI IMPRESSION: 0-49% flow stenosis bilateral internal carotid arteries Spectral Doppler US Thresholds (Reference: Isaiah EG, et al. Radiology 2000; 214:[id number]) Stenosis (%) PSV (cm/sec) VICA/VCCA 0-49 <150 <2.5 50-69 150-225 2.5-4.0 >70 >225 >4.0 Electronically authenticated by: TWYLA CONTEH Date: 07/14/2023 12:14
--- OUTSIDE RECORDS SUMMARY | 2023-07-14 10:54 | XMS_ITS | CCD ---
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 Name Role Phone SHAMMO, DARRION Primary Care Unavailable SHAMMO, DARRION Admitting Unavailable SHAMMO, DARRION Attending Unavailable YADY, DR TWYLA Mensah Consulting Unavailable SHAMMO, DARRION Consulting Unavailable MINNIEECK, DR JENIFER Carreno Attending Unavailabl e REINECK, [...] DARRION Attending Unavailable SHAMMO, DARRION Consulting Unavailable OrlandoNicolás calvillo Unavailable RICHARD VARAGS Primary Care Physician Unavailable Primary Care Provider UnavailDG Carmen Attending Unavailable Eduardo Atkins MD Primary Care Provider SHAMDARRION BEARDEN Primary Care Physician Nancy Stern Attending Unavailable Doug FERNANDEZ Attending Unavailable FRANDY ROLLINS Referring Unavailable SHAMMO, DARRION FLYNN Primary Care Unavailable KD OZUNA Attending Unavailab le SHAMMODARRION Primary Care Unavailable MD NICOLÁS PERRY Referring Unavailable KD OZUNA Attending Unavailab le SHAMMO, DARRION FLYNN Primary Care Unavailable Medications Current Medications Medication Drug Class(es) Dates Sig (Normalized) Sig (Original) 0.5 ML tirzepatide 10 MG/ML Auto-Injector [Mounjaro] (3 sources) Start: 06-10-2023 inject 5 mg by subcutaneous injection every week Mounjaro 5 mg/0.5 mL subcutaneous solution 5 mg, SubCutaneous, qWeek, Refills(s) 0 Start Date: 06/10/23 Status: Ordered Mounjaro 5 MG/0. 5ML as directed Subcutaneous ONCE A WEEK Active Acetaminophen (5 sources) Start: 07-10-2020 acetaminophen Refills(s) 0 Start Date: 07/10/20 Status: Ordered take 1 tablet by lei th every four hours Acetaminophen 325 MG 1 tablet as needed Orally every 4 hrs Active [id number] actuat albuterol 0.09 mg/actuat metered dose [...] Active alendronic acid 70 mg oral tablet (8 sources) Bisphosphonate Start: 07-10-2020 alendronate (F osamax) 70 MG tablet take 1 tablet by mouth once fernandez y Alendronate Sodium 70 MG 1 tablet 30 minutes before the first food, beverage or medicine of the day with plain water Orally Active ascorbic acid 250 mg chewable tablet (5 sources) Vitamin C Start: 05-22-2023 ascorbic acid (Vitamin C) 250 MG chewable tablet aspirin 81 mg delayed release oral tablet (8 sources) Platelet Aggregation Inhibitor, Nonsteroidal Anti-inflammatory Drug Start: 07-10-2020 take 1 tablet by mouth once daily aspirin 81 mg Oral EC Tab 81 mg = 1 tab(s), Oral, Daily, Refills(s) 0 Start Date: 07/10/20 Status: Ordered brexpiprazole 0.5 mg oral tablet (3 sources) Atypical Antipsychotic Start: 05-28-2023 take 1 tablet by mouth once daily Rexulti 0.5 mg oral tablet 0.5 mg = 1 tab(s), Oral, Daily, Refills(s) 0 Start Date: 06/10/23 Status: Ordered cholecalciferol 1.25 mg oral capsule (2 sources) Vitamin D Start: 05-28-2023 D3-50 1.25 MG (39631 UT) capsule ergocalciferol 1.25 mg oral capsule (4 sources) Provitamin D2 Compound take 1 capsule by mouth every week Vitamin D (Ergocalcifero l) 1.25 MG (48114 UT) 1 capsule Orally ONCE A WEEK Active ferrous sulfate 325 mg oral tablet (8 sources) Start: 07-10-2020 ferrous sulfate 325 (65 Fe) MG tablet Start: 07-10-2020 ferrous sulfat e Oral, Refills(s) 0 Start Date: 07/10/20 Status: Ordered take 1 tablet by lei th once daily Ferrous Sulfate 325 (65 Fe) MG 1 tablet Orally ONCE A DAY Active furosemide 20 mg oral tablet (8 sources) Loop Diuretic Start: 07-10-2020 take 1 mg by mouth once daily furosemide 20 mg Tab mg tab(s), Oral, Daily, Refills(s) 0 Start Date: 07/10/20 Status: Ordered hydroCHLOROthiazide 12.5 mg / lisinopril 20 mg oral tablet (7 sources) Thiazide Diuretic, Angiotensin Converting Enzyme Inhibitor Start: 06-10-2023 take 1 tablet by mouth once daily hydrochlorothia zide-lisinopril 12.5 mg-20 mg Tab 1 tab(s), Oral, Daily, Refill(s) 0 Start Date: 06/10/23 Status: Ordered Start: 06-04-2023 lisinopril-hyd roCHLOROthiazide 20-12.5 MG tablet take 1 tablet by [...] Active magnesium oxide 400 mg oral tablet (3 sources) Start: 05-28-2023 take 1 tablet by mouth once daily magnesium oxide 400 mg Tab 400 mg = 1 tab(s), Oral, Daily, Refills(s) 0 Start Date: 06/10/23 Status: Ordered metFORMIN hydrochloride 500 mg oral tablet (1 source) Biguanide Start: 07-10-2020 take 1 mg by mouth once daily metformin 500 mg ER Tab mg tab(s), Oral, Daily, Refills(s) 0 Start Date: 07/10/20 Status: Ordered mounjaro 5 mg/0.5ml solution pen-injector (2 sources) Mounjaro 5 MG/0.5ML as directed Subcutaneous ONCE A WEEK Active Mounjaro 5 MG/0.5ML solution pen-injector (2 sources) Start: 06-07-2023 Mounjaro 5 MG/0.5ML solution pen-injector ondansetron 4 mg disintegrating oral tablet (5 sources) Serotonin-3 Receptor Antagonist Start: 06-10-2023 take 1 tablet by mouth every four hours as needed for nausea ondansetron 4 mg Dis Tab 4 mg = 1 tab(s), Oral, q4hr, PRN Nausea/Vomiting, Refills(s) 0 Start Date: 06/10/23 Status: Ordered take 1 tablet by lei th every four hours as needed Ondansetron 4 MG 1 tablet on the tongue and allow to dissolve Orally EVERY 4 HOURS NEEDED Active pantoprazole 20 mg delayed release oral tablet (8 sources) Proton Pump Inhibitor Start: 06-10-2023 take 1 tablet by mouth once daily Pantoprazole [address] Tab 20 mg = 1 tab(s), Oral, Daily, Refills(s) 0 Start Date: 06/10/23 Status: Ordered Start: 07-10-2020 take 1 mg by mouth once daily pantoprazole 40 mg Oral EC Tab mg tab(s), Oral, Daily, Refills(s) 0 Start Date: 07/10/20 Status: Ordered QUEtiapine 25 mg oral tablet (1 source) Atypical Antipsychotic Start: 07-10-2020 take 1 mg by mouth three times daily SEROquel 25 mg Tab mg tab(s), Oral, TID, Refills(s) 0 Start Date: 07/10/20 Status: Ordered rosuvastatin calcium 5 mg oral tablet (7 sources) HMG-CoA Reductase Inhibitor Start: 06-10-2023 take 1 tablet by mouth once daily rosuvastatin 5 mg Tab 5 mg = 1 tab(s), Oral, Daily, Refills(s) 0 Start Date: 06/10/23 Status: Ordered sertraline 25 mg oral tablet (3 sources) Serotonin Reuptake Inhibitor Start: 06-02-2023 take 1 tablet by mouth once daily Zoloft 25 mg Tab 25 mg = 1 tab(s), Oral, Daily, Refills(s) 0 Start Date: 06/10/23 Status: Ordered SITagliptin 50 mg oral tablet (1 source) [...] Orally TWICE A DAY Active Vitamin D3 (2 sources) Start: 07-10-2020 take 83364 [IU] by mouth every week Vitamin D3 50,000 unit(s), Oral, qWeek, Refills(s) 0 Start Date: 07/10/20 Status: Ordered Start: 07-10-2020 Vitamin D3 Ref ills(s) 0 Start Date: 07/10/20 Status: Ordered Completed/Discontinued Medications Medication Drug Class(es) Dates Sig (Normalized) Sig (Original) potassium chloride 20 meq extended release oral tablet (7 sources) Start: 06-10-2023 take 1 tablet by mouth once daily potassium chloride 20 mEq ER Tab 20 mEq = 1 tab(s), Oral, Daily, Refills(s) 0 Start Date: 06/10/23 Status: Ordered Start: 06-02-2023 potassium chlo ride CR (Klor-Con M20) 20 MEQ ER tablet take 1 tablet by lei th every twenty-four hours Potassium Chloride ER 20 MEQ 1 tablet with food Orally Once a day Active Problems Active Problems Problem Classification Problem Date Documented Date Episodic/Chronic Acute cerebrovascular disease (2 sources) Cerebrovascular accident 07-10-2020 Chronic Anxiety disorders (1 source) Anxiety 06-10-2023 Chronic Asthma (2 sources) Asthma 07-10-2020 Chronic Chronic kidney disease (10 sources) Chronic kidney disease stage 4; Translations: [Chronic kidney disease, stage 4 (severe)] Chronic Congestive heart failure; nonhypertensive (2 sources) Chronic combined systolic (congestive) and diastolic (congestive) heart failure; Translations: [Heart failure] Onset: 3 06-10-2023 Chronic Deficiency and other anemia (4 sources) Anemia of renal disease; Translations: [Anemia in chronic kidney disease] Chronic Deficiency and other anemia (3 sources) Anemia in chronic kidney disease Chronic Deficiency and other anemia (2 sources) Anemia 07-10-2020 Episodic Diabetes mellitus with complications (7 sources) Disorder of kidney due to diabetes mellitus; Translations: [Type 2 diabetes mellitus with diabetic chronic kidney disease] Chronic Diabetes mellitus without complication (8 sources) Type 2 diabetes mellitus without complications; Translations: [Diabetes mellitus] Onset: 3 Chronic Disorders of lipid metabolism (2 sources) Hyperlipidemia, unspecified; Translations: [Hyperlipidemia] Onset: 3 06-10-2023 Chronic Diverticulosis and diverticulitis (1 source) Diverticular disease 06-10-2023 Chronic E Codes: Fall (1 source) Fall; Translations: [Unspecified fall, initial encounter] Onset: 3 Episodic Esophageal disorders (1 source) Gastroesophageal reflux disease 06-10-2023 Chronic Essential hypertension (8 sources) Essential (primary) hypertension; Translations: [Hypertensive disorder] Onset: 3 Chronic Genitourinary symptoms and ill-defined conditions (5 sources) Urinary incontinence; Translations: [Unspecified urinary incontinence] Chronic Headache; including migraine (1 source) Migraine 06-10-2023 Chronic Headache; including migraine (2 sources) Headache 07-10-2020 Episodic Heart valve disorders (2 sources) Heart murmur duration, short 07-10-2020 Episodic Hypertension with complications and secondary hypertension (9 sources) Hypertensive heart disease with heart failure; Translations: [Chronic kidney disease due to hypertension] Onset: 3 Chronic Late effects of cerebrovascular disease (4 sources) Sequelae of cerebral infarction; Translations: [Unspecified sequelae of cerebral infarction] Onset: 4 06-09-2023 Chronic Miscellaneous mental health disorders (2 sources) Mental disorder 07-10-2020 Chronic Mood disorders (1 source) Depressive disorder 06-10-2023 Chronic Osteoarthritis (2 sources) Arthritis 07-10-2020 Chronic Osteoporosis (1 source) Osteoporosis 06-10-2023 Chronic Other aftercare (1 source) 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 of oral hypoglycemic drugs; Translations: [CUSTODIAL USE ORAL HYPOGLYCEMIC DX] Onset: 3 Episodic Other aftercare (1 source) 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; Translations: [OTH FORESTRY HUNTER CURRENT DRUG THERAPY] Onset: 3 Episodic Other circulatory disease (1 source) Disorder of aorta 06-10-2023 Chronic Other diseases of kidney and ureters (5 sources) Secondary hyperparathyroidism; Translations: [Secondary hyperparathyroidism of renal origin] 06-10-2023 Chronic Other diseases of kidney and ureters (3 sources) Secondary hyperparathyroidism of renal origin Chronic Other diseases of kidney and ureters (1 source) Anemia of renal disease 06-10-2023 Episodic Other diseases of veins and lymphatics (1 source) Lymphedema 06-10-2023 Chronic Other injuries and conditions due to external causes (1 source) Injury of head; Translations: [Unspecified injury of head, initial encounter] Onset: 3 Episodic Other lower respiratory disease (4 sources) Hypoxemia; Translations: [HYPOXEMIA] Onset: 3 Episodic Other nervous system disorders (4 sources) Polyneuropathy; Translations: [Polyneuropathy, unspecified] Onset: 4 06-09-2023 Chronic Other nutritional; endocrine; and metabolic disorders (1 source) Body mass index 30+ - obesity 06-24-2023 Chronic Other nutritional; endocrine; and metabolic disorders (1 source) Obesity 06-24-2023 Chronic Other nutritional; endocrine; and metabolic disorders (2 sources) Hyperuricemia without signs of inflammatory arthritis and tophaceous disease Episodic Other screening for suspected conditions (not mental disorders or infectious disease) (2 sources) Encounter for observation for other suspected diseases and conditions ruled out; Translations: [Screening for malignant neoplasm of colon done] Onset: 3 Episodic Residual codes; unclassified (2 sources) Edema of lower extremity 07-10-2020 Episodi c Schizophrenia and other psychotic disorders (3 sources) Schizoaffective disorder, bipolar type; Translations: [Schizoaffective disorder] Onset: 2 Chronic Thyroid disorders (4 sources) Hypothyroidism, unspecified; Translations: [Hypothyroidism] Onset: 3 07-10-2020 Chronic Transient cerebral ischemia (1 source) Transient cerebral ischemia 06-10-2023 Chronic Unclassified (1 source) Patient encounter status 06-24-2023 Past or Other Problems Problem Classification Problem Date Documented Da te Episodic/Chronic Chronic kidney disease (1 source) Chronic kidney disease Results Test Name Value Interpretation Reference Range Facility Lab Reportson 07-03-2023 Lab Reports [id number] 5#1.00TIFF [facility] Lab Reports [id number] 1#1.00TIFF [facility] Physician Referralon 024 Physician Referral [id number] 4#1.00TIFF [facility] RAD - CT Reporton 07-03-2023 RAD - CT Report [id number] 3#1.00TIFF [facility] RAD - Ultrasound Reporton RAD - Ultrasound Report [id number] 0#1.00TIFF [facility] Screenson 07-03-2023 Screens [id number] #1.00TIFF Normal [facility] Half-Way Recordson 06-30 Half-Way Records [id number] #1.00TIFF Normal [facility] Ambulatory Visit Summaryon 0 06-30-2023 Ambulatory Visit Summary AVILA VALENZUELA :1950 Visit Date:06/30/2023 Ambulatory Visit Instructions Your Diagnosis Mixed incontinence urge and stress Bilateral renal cysts Hydronephrosis, right BMI 34.0-34.9,adult Your Care Team Attending Physician - LAITH YI, KEN Palacios Primary Care Physician - PATTI CAREY, DARRION FLYNN Referring Physician - ORLANDO KILLIAN, NICOLÁS This Is Your Medications List Contact prescribing physician if questions or concerns acetaminophen (acetaminophen 325 mg Tab) albuterol (Albuterol (Eqv-Proventil HFA) 90 mcg/inh inhalation aerosol) alendronate (alendronate 70 mg oral tablet) ascorbic acid (ascorbic acid 250 mg oral tablet, chewable) aspirin (aspirin 81 mg Oral EC Tab) brexpiprazole (Rexulti 0.5 mg oral tablet) cholecalciferol (Vitamin D3) cyanocobalamin (Vitamin B-12 1000 mcg oral tablet) ferrous sulfate furosemide (furosemide 20 mg Tab) hydrochlorothiazide- lisinopril (hydrochlorothiazide -lisinopril 12.5 mg-20 mg Tab) magnesium oxide (magnesium oxide 400 mg Tab) ondansetron (ondansetron 4 mg Dis Tab) pantoprazole (Pantoprazole [address] Tab) potassium chloride (potassium chloride 20 mEq ER Tab) rosuvastatin (rosuvastatin 5 mg Tab) sertraline (Zoloft 25 mg Tab) tirzepatide (Mounjaro 5 mg/0.5 mL subcutaneous solution) Procedures Performed Cystourethroscopy with dilation of urethral stricture (07/19/2020), Colonoscopy (05/19/2013), Division of Left Ankle Tendon, Open Approach, Excision of Left Tarsal, Open Approach, Fusion of Left Tarsal Joint with Internal Fixation Device, Open Approach, Repair of cleft palate, Tonsillectomy and adenoidectomy. Discharge Vitals Heart Rate (Peripheral) 68 Blood Pressure 137/93 Height 60 in Height 152.4 cm Weight 177.32 lb Weight 80.6 kg BMI 34.7 Medications What How Much When Instructions Unchanged acetaminophen (acetaminophen 325 mg Tab) 30 tab(s), 0 Refill(s) Contact prescribing physician if questions or concerns Unchanged albuterol (Albuterol (Eqv-Proventil HFA) 90 mcg/ inh inhalation aerosol) 6 Unspecified/ Unknown, 0 Refill(s) Contact prescribing physician if questions or concerns Unchanged alendronate (alendronate 70 mg oral tablet) By Mouth Every week Contact prescribing physician if questions or concerns Unchanged ascorbic acid (ascorbic acid 250 mg oral tablet, chewable) 60 tab(s), 0 Refill(s) Contact prescribing physician if questions or concerns Unchanged aspirin (aspirin 81 mg Oral EC Tab) 1 Tablets By Mouth Every day Contact prescribing physician if questions or concerns Unchanged brexpiprazole (Rexulti 0.5 mg oral tablet) 1 Tablets By Mouth Every day Contact prescribing physician if questions or concerns Unchanged cholecalciferol (Vitamin D3) 50,000 Units By Mouth Every week Contact prescribing physician if questions or concerns Unchanged cyanocobalamin (Vitamin B-12 1000 mcg oral tablet) 11 tab(s), 0 Refill(s) Contact prescribing physician if questions or concerns Unchanged ferrous sulfate 325 Milligram By Mouth Every day Contact prescribing physician if questions or concerns Unchanged furosemide (furosemide 20 mg Tab) By Mouth Every day Contact prescribing physician if questions or concerns Unchanged hydrochlorothiazide- lisinopril (hydrochlorothiazide -lisinopril 12.5 mg-20 mg Tab) 1 Tablets By Mouth Every day Contact prescribing physician if questions or concerns Unchanged magnesium oxide (magnesium oxide 400 mg Tab) 1 Tablets By Mouth Every day Contact prescribing physician if questions or concerns Unchanged ondansetron (ondansetron 4 mg Dis Tab) 1 Tablets By Mouth Every 4 hours as needed for Nausea/Vomiting Contact prescribing physician if questions or concerns Unchanged pantoprazole (Pantoprazole [address] Tab) 1 Tablets By Mouth Every day Contact prescribing physician if questions or concerns Unchanged potassium chloride (potassium chloride 20 mEq ER Tab) 1 Tablets By Mouth Every day Contact prescribing physician if questions or concerns Unchanged rosuvastatin (rosuvastatin 5 mg Tab) 1 Tablets By Mouth Every day Contact prescribing physician if questions or concerns Unchanged sertraline (Zoloft 25 mg Tab) 1 Tablets By Mouth Every day Contact prescribing physician if questions or concerns Unchanged tirzepatide (Mounjaro 5 mg/ 0.5 mL subcutaneous solution) 5 Milligram Subcutaneous Every week Contact prescribing physician if questions or concerns Allergies No Known Allergies Problems Ongoing - Any problem that you are currently receiving treatment for. Anemia of renal disease Anxiety Bilateral renal cysts BMI 32.0-32.9,adult Chronic kidney disease due to hypertension.. Chronic kidney disease stage 4 Combined systolic and diastolic heart failure Depression Diabetes Diverticulosis Edema of lower extremity Essential hypertension GERD (gastroesophageal reflux disease) HTN (hypertension) Hydronephrosis, right Hyperlipidemia Hypothyroidism Lymphed (more content not included)... Normal [facility] Patient Educationon 06-30-19 Patient Education Nutrition BMI for Adults What is BMI? Body mass index (BMI) is a number that is calculated from a person's weight and height. BMI can help estimate how much of a person's weight is composed of fat. BMI does not measure body fat directly. Rather, it is an alternative to procedures that directly measure body fat, which can be difficult and expensive. BMI can help identify people who may be at higher risk for certain medical problems. What are BMI measurements used for? BMI is used as a screening tool to identify possible weight problems. It helps determine whether a person is obese, overweight, a healthy weight, or underweight. BMI is useful for: ? Identifying a weight problem that may be related to a medical condition or may increase the risk for medical problems. ? Promoting changes, such as changes in diet and exercise, to help reach a healthy weight. BMI screening can be repeated to see if these changes are working. How is BMI calculated? BMI involves measuring your weight in relation to your height. Both height and weight are measured, and the BMI is calculated from those numbers. This can be done either in [place] or metric measurements. Note that charts and online BMI calculators are available to help you find your BMI quickly and easily without having to do these calculations yourself. To calculate your BMI in [place] measurements: 1. Measure your weight in pounds (lb). 2. Multiply the number of pounds by 703. ? For example, for a person who weighs 180 lb, multiply that number by 703, which equals 126,540. 3. Measure your height in inches. Then multiply that number by itself to get a measurement called inches squared. ? For example, for a person who is 70 inches tall, the inches squared measurement is 70 inches x 70 inches, which equals 4,900 inches squared. 4. Divide the total from step 2 (number of lb x 703) by the total from step 3 (inches squared): 126,540 ? 4,900 = 25.8. This is your BMI. To calculate your BMI in metric measurements: 1. Measure your weight in kilograms (kg). 2. Measure your height in meters (m). Then multiply that number by itself to get a measurement called meters squared. ? For example, for a person who is 1.75 m tall, the meters squared measurement is 1.75 m x 1.75 m, which is equal to 3.1 meters squared. 3. Divide the number of kilograms (your weight) by the meters squared number. In this example: 70 ? 3.1 = 22.6. This is your BMI. What do the results mean? BMI charts are used to identify whether you are underweight, normal weight, overweight, or obese. The following guidelines will be used: ? Underweight: BMI less than 18.5. ? Normal weight: BMI between 18.5 and 24.9. ? Overweight: BMI between 25 and 29.9. ? Obese: BMI of 30 or above. Keep these notes in mind: ? Weight includes both fat and muscle, so someone with a muscular build, such as an athlete, may have a BMI that is higher than 24.9. In cases like these, BMI is not an accurate measure of body fat. ? To determine if excess body fat is the cause of a BMI of 25 or higher, further assessments may need to be done by a health care provider. ? BMI is usually interpreted in the same way for men and women. Where to find more information For more information about BMI, including tools to quickly calculate your BMI, go to these websites: ? Centers for Disease Control and Prevention: www.cdc.gov ? [place] Heart Association: www.heart.org ? National Heart, Lung, and Blood [place]: www.nhlbi.nih.gov Summary ? Body mass index (BMI) is a number that is calculated from a person's weight and height. ? BMI may help estimate how much of a person's weight is composed of fat. BMI can help identify those who may be at higher risk for certain medical problems. ? BMI can be measured using [place] measurements or metric measurements. ? BMI charts are used to identify whether you are underweight, normal weight, overweight, or obese. This information is not intended to replace advice given to you by your health care provider. Make sure you discuss any questions you have with your health care provider. Document Revised: 01/04/2020 Document Reviewed: 11/11/2019 [employer] Patient Education ? 2022 [employer] [facility] Urology Office/Clinic Noteon 06-30-2023 Urology Office/Clinic Note Chief Complaint Incontinence HPI Staff Pt last seen in our office by DLS 08/07/20 due to mixed incontinence, frequency, recurrent UTI, microscopic hematuria, urethral stricture & CKD stage 3. S/P Cysto/UD 07/19/20 Hx of CKD & DM A1C 05/27/23 - 6.6 BMP 05/27/23 BUN 36.0 Crea 1.49 eGFR 34 MAURA 12/30/22 *No acute abnormality. few tiny simple cysts bilat. [facility] ER 03/31/23 CC: SP discomfort. CT ap wo *Mild Rt hydronephrosis. Diffuse bladder wall thickening. May represent recently passed ureteral stone vs cystitis. 03/31/23 >100k E Coli & 20-30k Klebsiella pneumoniae. dc'd home on Keflex x 7d Dysuria: no Incomplete bladder emptying: no Hematuria: no Frequency: no Urgency: severe Nocturia: 2x a night Stream: good stream Leaking: severe no Post void dripping: no Wearing pads/ Depends: wears depends changes 3x a day Urge incontinence: severe. pt. states that urge is worse than stress. Has never been on any bladder medications. Stress incontinence: mild w/coughing-sneezing Incontinence without Sensory Awareness: no Abdominal pain: no Flank pain: no Sexual complaints: no Review of Systems PHQ Score Initial Depression Screen Score: 0 SCORE no fever, chills, malaise, myalgia. no rash/lesions. no chest pain, palpitations, or SOB. no abdominal pain, nausea, vomiting. no unilateral calf swelling, redness, pain Physical Exam Vitals & Measurements HR: 68(Peripheral) BP: 137/93 HT: 60 in HT: 152.4 cm WT: 80.6 kg WT: 177.32 lb BMI: 34.7 General: nontoxic, NAD Mouth: moist mucosa Lungs: normal respiratory effort Cardio: regular rate, good distal perfusion Abdomen: nondistended, no suprapubic distention or tenderness, no CVA tenderness Neurologic: Grossly normal Skin: No rashes or suspicious lesions Assessment/Plan 1. Mixed incontinence urge and stress (N39.46: Mixed incontinence) UUI>ANEL 3 briefs/day no previous meds UA completed in office today shows no microhematuria or signs of infection. PVR low. DM controlled, A1c 6.6 on lasix 20mg and HCTZ 12.5mg with a 50oz daily fluid restriction Discussed tx options for bothersome urinary sx including oral medications, Botox, SNM. Medication management includes anticholinergics and beta-3 agonists. Beta-3's (Myrbetriq/Gemtesa) are often preferable due to lower side effect profile, but most insurances won't cover without trying anticholinergics first. Therefore we will start with Oxybutynin. Pt will start with lowest daily dose and slowly titrate up G2mrsuw as pt tolerates. I explained the most common side effects are dry mouth, dry eyes, and constipation. We discussed OTC options to help with these side effects. Pt will stop medication and call office if side effects become intolerable. We did discuss that there is a documented potential side effect of mental status changes/confusion in the elderly, but that this risk is quite low. Pt and I agree that potential benefit outweigh risk at this time. If fails Oxybutynin, we can try a second anticholinergic. If fails second anticholinergic, we can consider Mrybetriq. If fails Myrbetriq, we cannot get it covered, or we get it covered but it's a cost-prohibitive co-pay then we will consider next steps which could include cysto, urodynamics, Botox, SNM. Brief discussion today regarding Botox/SNM but did not go into elaborate detail, would address full risks/benefits/detai ls of procedure prior to scheduling. Ordered: 06936 Measure Post Void residual urine and/or bladder capacity by US- non-imaging E&M of Est. Patient High 40-54 Min 37084 2. Bilateral renal cysts (N28.1: Cyst of kidney, acquired) MAURA Sept 2022 tiny, simple -no additional workup needed Ordered: E&M of Est. Patient High 40-54 Min 04067 US Renal 3. Hydronephrosis, right (N13.30: Unspecified hydronephrosis) 03/31/23 CT ap wo *Mild Rt hydronephrosis. Suggestion of R ureteral urothelial thickening. Diffuse bladder wall thickening. May represent recently passed ureteral stone vs cystitis. No renal stones. cx >100k E Coli & 20-30k Klebsiella pneumoniae. dc'd home on Keflex x 7d. reports UTIs are quite rare, <1 every 2yrs. this was abnl for her. -recheck MAURA to ensure resolution of hydro. order written on ECF form and printed/sent w her. Ordered: E&M of Est. Patient High 40-54 Min 31632 US Renal 4. BMI 34.0-34.9,adult (Z68.34: Body mass index [BMI] 34.0-34.9, adult) healthy diet encouraged Ordered: E&M of Est. Patient High 40-54 Min 51393 Orders: Body Mass Index (BMI) documented 3008F Current tobacco non-user 1036F Depression Screening Negative 3352F Influenza immunization status assessed 1030F Most recent diastolic blood pressure >=90 mm Hg 3080F Most recent systolic blood pressure >= 140 mm Hg 3077F Patient screen for fall risk: no falls in last year or 1 fall with no injury in last year 1101F Urnls Dip Stick Auto w/o Microscopy POC 06224 Total time spent reviewing previous notes/results/events and promotions assistant al documents, prepar (more content not included)... Normal [facility] Comment on above: Result Comment: Elec tronically Signed By: KEN OZUNA PA-C\.chin\Date and Time Signed: 06/30/23 12:51 EST Consent for Procedure/Surger yon 06-26-2023 Consent for Procedure/Surgery [id number] #1.00TIFF Normal [facility] Ambulatory Visit Summaryon 0 06-24-2023 Ambulatory Visit Summary AVILA VALENZUELA :1950 Visit Date:06/24/2023 Ambulatory Visit Instructions Your Care Team Attending Physician - REBECCA KILLIAN, Doug Calvillo Primary Care Physician - DARRION ARMSTRONG CNP Referring Physician - FRANDY ROLLINS MD This Is Your Medications List Contact prescribing physician if questions or concerns alendronate (alendronate 70 mg oral tablet) aspirin (aspirin 81 mg Oral EC Tab) brexpiprazole (Rexulti 0.5 mg oral tablet) cholecalciferol (Vitamin D3) ferrous sulfate furosemide (furosemide 20 mg Tab) hydrochlorothiazide- lisinopril (hydrochlorothiazide -lisinopril 12.5 mg-20 mg Tab) magnesium oxide (magnesium oxide 400 mg Tab) ondansetron (ondansetron 4 mg Dis Tab) pantoprazole (Pantoprazole [address] Tab) potassium chloride (potassium chloride 20 mEq ER Tab) rosuvastatin (rosuvastatin 5 mg Tab) sertraline (Zoloft 25 mg Tab) tirzepatide (Mounjaro 5 mg/0.5 mL subcutaneous solution) Procedures Performed Colonoscopy (05/19/2013), Division of Left Ankle Tendon, Open Approach, Excision of Left Tarsal, Open Approach, Fusion of Left Tarsal Joint with Internal Fixation Device, Open Approach, Repair of cleft palate, Tonsillectomy and adenoidectomy, Urethral dilatation. Discharge Vitals Heart Rate (Peripheral) 68 Respiratory Rate 16 Blood Pressure 110/78 Height 150 cm Height 59 in Weight 73.9 kg Weight 162.58 lb BMI 32.84 What to do next Scheduled Follow-Up Appointments Thursday 10:00 AM EST With: KEN OZUNA PA-C Where: [facility] Facesheeton 06-24-2023 Facesheet [id number] 9#1.00TIFF [facility] Physician Referralon 024 Physician Referral [id number] #1.00TIFF [facility] ABO/Rh History Checkon 04-18 ABO/Rh History Check Patient discharged prior [facility] Comment on above: Performed By: #### 1 [id number], 62452301, 4478833, 94975189 ####[facility] [address] [place] [address] CT Head or Brain w/o Contras ton [...] Technologist: QUINCY Technical Comments Contrast: None Normal [facility] CT Spine Cervical w/o Contra ston [...] V. Transcribed by: GREG Technologist: QUINCY Normal [facility] Discharge Instructionson Discharge Instructions [id number] 8#1.00TIFF Normal [facility] ED Clinical Summaryon 2022 ED Clinical Summary [place] [address] ED Clinical Summary Person Information Name: AVILA VALENZUELA/[facility] Age: 73 Years : 1950 Sex: Female Language: Angolan PCP: SAM KILLIAN, RICHARD Yu Marital Status: Single Visit Id: Visit Reason: [...] 04/18/2023 00:43:24 04/18/2023 00:43:24 04/18/2023 00:43:24 ADDRESS: [address] [place] [address] [place] [id number] [facility] DOC NOTES: MEDICAL INFORMATION: Prescriptions Given: Medications [...] Follow up: With: Address: When: RICHARD VARGAS [address] [place] [address] Business (1) In 3 days 04/20/2023 Comments: Follow-up with your primary care provider in 3 to 5 days. If symptoms worsen, do not improve, or new symptoms arise please report back to emergency department for further evaluation. DIAGNOSIS: Closed head injury; Fall Normal [facility] ED Note-Physicianon 04-18-20 ED Note-Physician Basic Information Time Seen: Nate YI, Royal Beltran. 04/17/2023 20:31 Chief Complaint Pt arrrives [facility] for a fall. Pt states she hit [...] and Complexity of Problems Differential Diagnosis: [] [facility] Data External documents reviewed: [] My EKG [...] RICHARD VARGAS In 3 days 04/20/2023 EST [address] [id number] Business (1) Additional Instructions: Follow-up with your primary care provider in 3 to 5 days. If symptoms worsen, do not improve, or new symptoms arise please report back to emergency department for further evaluation. Patient Education Head Injury, Adult Attestation Patient seen (more content not included)... Normal [facility] Comment on above: Result Comment: Elec tronically Signed By: Royal Sullivan PA-C\.br\Date and Time Signed: 04/17/23 23:30 EST\.br\Electronically Co-Signed By: Nancy Stern DO\.br\Date and Time Co-Signed: 04/18/23 01:27 EST ED [...] Ask your health care provider for a eebo-yo-yxuk plan for gradually returning to activities. ? [...] your friends, family, a trusted colleague, and exhaust worker about your injury, symptoms, and restrictions. Have them watch for any new or worsening problems. General instructions ? Take peem-mxi-dlgpxhb and prescription medicines only as told by your health care provider. ? Have someone stay with you for 24 hours after your head injury. This person should watch you for any changes in your symptoms and be ready to seek medical help. ? Keep all follow-up visits as told by your health care pr (more content not included)... Normal [facility] ED Patient Summaryon 023 ED Patient Summary [address] [address] Patient Discharge Instructions Person Information Name: AVILA VALENZUELA Age: 73 Years Arrival Date: 04/17/2023 20:26:34 Discharge Diagnosis: Closed head injury; Fall Primary Care Physician: RICHARD VARGAS MD Provider Information Primary Provider: Nancy Stern DO Advanced Truck Chauffeur:None The exam and treatment you received in the Emergency Department were for an urgent problem and are not intended as complete care. It is important that you follow up with a doctor, nurse practitioner, or physician?s web marketing assistant for ongoing care. If your symptoms become worse or you do not improve as expected and you are unable to reach your usual health care provider, you should return to the Emergency Department. We are available 24 hours a day. BIANCA AVILA Palacios has been given the following list of patient education materials, prescriptions and follow-up instructions: Follow-up Instructions: With: Address: When: RICHARD SAM [address] [place] [address] Mbaobao (1) In 3 days 04/20/2023 Comments: Follow-up [...] opioids can be used to help relieve ffdatbdz-ez-lghjmp pain and are often prescribed following a [...] guidance from the Food and Drug Administration (www.fda.gov/Drugs/R esourcesForYou). ? Visit www.cdc.gov/drugover dose to learn about the risks of opioids abuse and overdose. ? If you (more content not included)... [facility] ED Traumaon 04-18-2023 ED Trauma [id number] 6#1.00TIFF [facility] Monitor Recordon 04-18-2023 Monitor Record [id number] 9#1.00TIFF [facility] Monitor Record [id number]#1.00TIFF Normal [facility] Monitor Record [id number] 9#1.00TIFF Normal [facility] RAD - Preliminary Cat Scan R eporton 04-18-2023 RAD - Preliminary Cat Scan Report [id number] 6#1.00TIFF Normal [facility] U Drug Screenon 04-18-2023 U Amph Scr Negative Invalid Interpretation Code [facility] Comment on above: Performed By: #### 2 917340 ####[facility] [address] [place] [address] U Cookie Scr Negative Invalid Interpretation Code [facility] Comment on above: Performed By: #### 2 773389 ####[facility] [address] [place] [address] U Benzodia Scr Negative Invalid Interpretation Code [facility] Comment on above: Performed By: #### 2 730553 ####[facility] [address] [place] [address] U Cannab Scr Negative Invalid Interpretation Code [facility] Comment on above: Performed By: #### 2 616470 ####[facility] [address] [place] [address] U Cocaine Scr Negative Invalid Interpretation Code [facility] Comment on above: Performed By: #### 2 550137 ####[facility] [address] [place] [address] U Opiate Scr Negative Invalid Interpretation Code [facility] Comment on above: Performed By: #### 2 171211 ####[facility] [address] [place] [address] U PCP Scr Negative Invalid Interpretation Code [facility] Comment on above: Performed By: #### 2 734710 ####[facility] [address] [place] [address] ABO/Rhon 04-17-2023 ABO/Rh Positive Invalid Interpretation Code [facility] Comment on above: Performed By: #### 1 0035466, 81706988, 4515695, 36761853 ####[facility] [address] [place] [address] ABSCon 04-17-2023 ABSC Gel Interp Negative Normal [facility] Comment on above: Performed By: #### 1 0378059, 35719981, 9589797, 54509194 ####[facility] [address] [place] [address] Auto Diffon 04-17-2023 Basophils/100 WBC (Bld) 1.2 % Normal 0.0-2.0 [facility] Comment on above: Order Comment: Order Added by Discern Expert. Performed By: #### 2 704405, 2279102, 1944042, 55926616, 37937400, 6039751, 1170426, 6237401, 7429701 ####[address] [address] Basophils/Leukocytes Auto (Bld) [Pure # fraction] 0.1 E9/L Normal 0.0-0.2 [facility] Comment on above: Order Comment: Order Added by Discern Expert. Performed By: #### 2 021465, 6570877, 9443240, 80123993, 31630983, 0998563, 9725512, 8099981, 1156685 ####[facility] [address] [place] [address] Eosinophils/100 WBC (Bld) 1.3 % Normal 0.0-8.0 [facility] Comment on above: Order Comment: Order Added by Discern Expert. Performed By: #### 2 686105, 9441013, 0554528, 67501867, 24817085, 6648005, 7364042, 3114722, 3402694 ####[place] [address] [place] [address] Eosinophils/Leukocytes Auto (Bld) [Pure # fraction] 0.1 E9/L Normal 0.0-0.5 [facility] Comment on above: Order Comment: Order Added by Discern Expert. Performed By: #### 2 585842, 4834845, 8262308, 65361498, 68592426, 0304705, 3584552, 5644227, 5030357 ####[place] [address] [place] [address] Lymphocytes/100 WBC (Bld) 23.6 % Normal 14.0-50.0 [facility] Comment on above: Order Comment: Order Added by Discern Expert. Performed By: #### 2 572365, 0021094, 7138198, 29160580, 86130542, 9667739, 5067000, 3123559, 2998690 ####[place] [address] [place] [address] Lymphocytes/Leukocytes Auto (Bld) [Pure # fraction] 1.8 E9/L Normal 1.0-4.0 [facility] Comment on above: Order Comment: Order Added by Jason Expert. Performed By: #### 2 679224, 2152961, 8518988, 37048381, 94066251, 0759512, 1769798, 7753118, 8463581 ####[place] [address] [place] [address] Monocytes/100 WBC (Bld) 10.1 % Normal 4.0-14.0 [facility] Comment on above: Order Comment: Order Added by Discern Expert. Performed By: #### 2 061536, 6469630, 1356960, 77213689, 43821859, 2110696, 2875624, 0307600, 8092195 ####[place] [address] [place] [address] Monocytes/Leukocytes Auto (Bld) [Pure # fraction] 0.8 E9/L Normal 0.2-1.0 [facility] Comment on above: Order Comment: Order Added by Discern Expert. Performed By: #### 2 314319, 9407393, 2886748, 89063265, 46388543, 1971953, 9635199, 4452931, 2884054 ####[place] [address] [place] [address] Neutrophils/100 WBC (Bld) 63.8 % Normal 36.0-75.0 [facility] Comment on above: Order Comment: Order Added by Discern Expert. Performed By: #### 2 720702, 0421203, 2720396, 44865415, 74930931, 7485446, 4286443, 7223473, 7095122 ####[facility] [address] [place] [address] Neutrophils/Leukocytes Auto (Bld) [Pure # fraction] 4.9 E9/L Normal 2.0-7.5 [facility] Comment on above: Order Comment: Order Added by Discern Expert. Performed By: #### 2 979760, 7294677, 7998257, 87632209, 93296289, 4517240, 9417732, 6406972, 7538416 ####[facility] [address] [place] [address] BLOOD BANKOrdered By: Karina Stafford on 04-17-2023 ABO/Rh Interp Positive Invalid Interpretation Code [facility] BB Subsection ABSC Gel Interp Negative (04/17/23 8:42 PM) Normal [facility] BB Subsection BMPon 04-17-2023 Anion gap [Moles/Vol] 14 mmol/L Normal 6-16 [facility] Comment on above: Performed By: #### 2 637769, 0534726, 3981841, 39662307, 91514318, 2105296, 3596900, 2041667, 7535222 ####[facility] [address] [place] [address] BUN/Creat Ratio 21 No Units High 10-20 [facility] Comment on above: Performed By: #### 2 946304, 7273327, 6268221, 32898306, 37107950, 7269178, 6567010, 0414524, 5994005 ####[facility] [address] [place] [address] Calcium [Mass/Vol] 9.6 mg/dL Normal 8.9-11.1 [facility] Comment on above: Performed By: #### 2 127652, 1215339, 5100027, 06412859, 62331328, 0251001, 7697283, 7250545, 8234671 ####[facility] [address] [place] [address] Chloride [Moles/Vol] 104 mmol/L Normal 101-111 [facility] Comment on above: Performed By: #### 2 451182, 0576212, 3266588, 44578706, 22807129, 8134020, 0017509, 8156633, 5088216 ####[facility] [address] [place] [address] CO2 [Moles/Vol] 28 mmol/L Normal 21-31 [facility] Comment on above: Performed By: #### 2 607487, 2428276, 8531563, 76654115, 46594978, 5027999, 5213929, 9228001, 8098285 ####[facility] [address] [place] [address] Creatinine [Mass/Vol] 1.7 mg/dL High 0.5-1.3 [facility] Comment on above: Performed By: #### 2 875063, 7204609, 6436726, 99070218, 56412923, 6905092, 8685297, 2826379, 8278932 ####[facility] [address] [place] [address] Glucose [Mass/Vol] 135 mg/dL Normal 55-199 [facility] Comment on above: Performed By: #### 2 249409, 5459520, 3617940, 12768430, 43910972, 2256212, 3929626, 5091703, 4318527 ####[facility] [address] [place] [address] Potassium [Moles/Vol] 3.7 mmol/L Normal 3.5-5.3 [facility] Comment on above: Performed By: #### 2 607020, 1579922, 3181898, 67721906, 24606864, 2962301, 4496666, 6474023, 8683026 ####[facility] [address] [place] [address] Sodium [Moles/Vol] 142 mmol/L Normal 135-145 [facility] Comment on above: Performed By: #### 2 069833, 7413298, 7204831, 27958559, 80301678, 0851520, 9825771, 0066065, 5876900 ####[facility] [address] [place] [address] Urea nitrogen [Mass/Vol] 36 mg/dL High 5-21 [facility] Comment on above: Performed By: #### 2 457315, 9028157, 9981398, 47260912, 77898648, 1003113, 7236116, 2436598, 4371735 ####[facility] [address] [place] [address] Blood Bank ID#on 04-17-2023 BBID# [id number] Invalid Interpretation Code [facility] Comment on above: Performed By: #### 1 1642924, 80167203, 6558710, 58830780 ####[facility] [address] [place] [address] CBC w/ Auto Diffon 3 Erythrocyte distribution width (RBC) [Ratio] 13.8 % Normal 10.9-14.2 [facility] Comment on above: Performed By: #### 2 792086, 7254936, 3642987, 28658589, 83310006, 8566270, 2523924, 6840649, 3807131 ####[facility] [address] [place] [address] Hematocrit (Bld) [Volume fraction] 31.5 % Low 34.0-46.0 [facility] Comment on above: Performed By: #### 2 762016, 8299151, 5543533, 79678541, 50729063, 5998675, 5645980, 7110135, 9077997 ####[facility] [address] [place] [address] Hemoglobin (Bld) [Mass/Vol] 10.1 g/dL Low 12.0-16.0 [facility] Comment on above: Performed By: #### 2 492335, 1317499, 8274080, 43859701, 57379187, 9445147, 1030720, 5345049, 4901204 ####[facility] [address] [place] [address] MCH (RBC) [Entitic mass] 29.4 pg Normal 27.0-34.0 [facility] Comment on above: Performed By: #### 2 902398, 0363255, 9227490, 04118756, 34586422, 1265031, 8765918, 8470714, 0857908 ####[address] [address] MCHC (RBC) [Mass/Vol] 32.1 g/dL Normal 31.4-36.0 [facility] Comment on above: Performed By: #### 2 498474, 3409500, 3881651, 26049964, 20717427, 5292893, 9029868, 4311434, 1143455 ####[address] [address] MCV (RBC) [Entitic vol] 91.4 fL Normal 80.0-100.0 [facility] Comment on above: Performed By: #### 2 399838, 7844965, 6088628, 31822755, 33414809, 7864809, 4993596, 7407352, 1419431 ####[address] [address] Platelet mean volume (Bld) [Entitic vol] 8.9 fL Normal 6.4-10.8 [facility] Comment on above: Performed By: #### 2 456586, 0267700, 2130954, 09019661, 22131348, 6986714, 6801543, 6756751, 2677141 ####[address] [address] Platelets (Bld) [#/Vol] 271.0 E9/L Normal 150.0-500.0 [facility] Comment on above: Performed By: #### 2 867653, 6630135, 7708353, 70131168, 31331231, 0783512, 4657689, 2953673, 6782359 ####[facility] [address] [place] [address] RBC (Bld) [#/Vol] 3.4 E12/L Low 4.3-5.9 [facility] Comment on above: Performed By: #### 2 452330, 0216322, 7515624, 20607045, 94300121, 8385053, 4176451, 9123013, 3943324 ####[facility] [address] [place] [address] WBC corrected for nucl RBC Auto (Bld) [#/Vol] 7.7 E9/L Normal 4.0-11.0 [facility] Comment on above: Performed By: #### 2 674208, 8283029, 1753946, 45052759, 78297174, 0018977, 8354770, 6970864, 8080529 ####[facility] [address] [place] [address] CHEMISTRYOrdered By: Autumn Renteria on 04-17-2023 U [...] Chem eGFR 31 mL/min/1.73 m2 Low >=59mL/min /1 .73 m2 Remisol Chem Ethanol Lvl 83 mg/dL [...] 32.6 s Normal 25.1 - 36.5 second(s) [facility] Auto Coag Comment on above: Interpretive Data: [...] the same coagulation reagent and instrumentation as [facility]. Currently there are no coagulation studies available worldwide for children to 14 days, and no normal ranges. Heparin therapeutic range (represented by Anti-Factor Xa activity of 0.2 - 0.4 U/mL) corresponds to PTT of 56.6 - 109.0 sec. INR Coag (PPP) [Relative time] 1.2 {INR} Invalid Interpretation Code [facility] Auto Coag Comment on above: Interpretive Data: I NR results are specifically intended to assess patients stabilized on long-term Anticoagulation therapy suggested INR s Less Intensive Anticoagulation 2.0 3.0 Conventional Range 3.0 4.5 PT Coag (PPP) [Time] 13.1 s High 9.4 - 1 2.5 second(s) [facility] Auto Coag Comment on above: Interpretive Data: [...] the same coagulation reagent and instrumentation as [facility]. Currently there are no coagulation studies available worldwide for children to 14 days, and no normal ranges. Consent for Treatmenton 03-28 Consent for Treatment [id number] #1.00TIFF Normal [facility] Ethanolon 04-17-2023 Ethanol Lvl 83 mg/dL Abnormal <=7 [facility] Comment on above: Result Comment: Crit ical Result S_ETOH:83 Called to and read back by: TAI BARBA at: 04/17/2023 21:19:24 by:CADY RENTERIA Critical Result Verified by Repeat Analysis Performed By: #### 2 964314 ####[facility] [address] [place] [address] HEMATOLOGYOrdered By: SYSTEM SYSTEM on 04-17-2023 Basophils/100 [...] 271.0 E9/L Normal 150.0 - 500.0 E9/L [facility] HemeAutoSS RBC (Bld) [#/Vol] 3.4 E12/L Low 4.3 - 5.9 E12/L [facility] HemeAutoSS WBC corrected for nucl RBC Auto (Bld) [#/Vol] 7.7 E9/L Normal 4.0 - 11.0 E9/L [facility] HemeAutoSS Hep Func Panelon 04-17-2023 Albumin [Mass/Vol] 4.1 g/dL Normal 3.3-5.0 [facility] Comment on above: Performed By: #### 2 275547, 1077419, 1644000, 36657328, 23059126, 8157093, 7591478, 7391866, 5734033 ####[place] [address] [place] [address] Albumin/Globulin [Mass ratio] 1.2 {ratio} Normal 1.1-2.2 [facility] Comment on above: Performed By: #### 2 927207, 5910221, 9903930, 86459736, 49911961, 7016459, 5814748, 2129834, 6662156 ####[address] [address] Alk Phos 68 Int._Unit/L Normal 21-98 [facility] Comment on above: Performed By: #### 2 437670, 7521261, 5898513, 36914143, 27338147, 2872127, 0152119, 1255786, 7337303 ####[address] [address] ALT 14 Int._Unit/L Normal 6-46 [facility] Comment on above: Performed By: #### 2 022782, 4371028, 2235021, 86578097, 95202922, 0722973, 1437775, 9150099, 3728187 ####[address] [address] [address] AST 14 Int._Unit/L Normal 5-43 [facility] Comment on above: Performed By: #### 2 [id number], [id number], 9292851, [id number], [id number], 2775710, 3440750, 8111947, 2850784 ####[address] [address] Bili Direct 0.2 mg/dL Normal 0.0-0.4 [facility] Comment on above: Performed By: #### 2 813648, 5987323, 9472883, 78443425, 05960269, 9090262, 3981886, 6307321, 6686592 ####[facility] [address] [place] [address] Bili Indirect 0.6 mg/dL Normal 0.1-0.9 [facility] Comment on above: Performed By: #### 2 464715, 3241421, 8480220, 02262908, 85519013, 6049921, 4022176, 3961850, 3048204 ####[facility] [address] [place] [address] Bili Total 0.8 mg/dL Normal 0.0-1.1 [facility] Comment on above: Performed By: #### 2 074764, 2504748, 5503807, 90186367, 70543357, 1543692, 2042385, 3787223, 6245980 ####[facility] [address] [place] [address] Globulin (S) [Mass/Vol] 3.4 g/dL Normal 1.4-4.0 [facility] Comment on above: Performed By: #### 2 154582, 3953010, 1672917, 00884560, 43745308, 3858088, 7148764, 2007544, 3483317 ####[facility] [address] [place] [address] Protein [Mass/Vol] 7.5 g/dL Normal 6.0-7.8 [facility] Comment on above: Performed By: #### 2 391927, 1406371, 6438337, 61364046, 01084649, 2637602, 5832817, 7744752, 7199096 ####[facility] [address] [place] [address] Lactic Acidon 04-17-2023 Lactic Acid Lvl 2.1 mmol/L Normal 0.5-2.2 [facility] Comment on above: Performed By: #### 2 930920, 8174635, 0120772, 23365456, 23086666, 1324103, 7388403, 1333638, 4462891 ####[address] [place] [address] Lipase Levelon 04-17-2023 Lipase Lvl 235 unit/L High 13-58 [facility] Comment on above: Performed By: #### 2 657488, 8022659, 7077752, 25139484, 16846359, 9071727, 4219116, 7109427, 0690656 ####[facility] [address] [place] [address] PT & PTTon 04-17-2023 aPTT Coag (PPP) [Time] 32.6 second(s) Normal 25.1-36.5 [facility] Comment on above: Result Comment: Para [...] the same coagulation reagent and instrumentation as [facility]. Currently there are no coagulation studies available worldwide for children to 14 days, and no normal ranges. Heparin therapeutic range (represented by Anti-Factor Xa activity of 0.2 - 0.4 U/mL) corresponds to PTT of 56.6 - 109.0 sec. Performed By: #### 2 852170, 4039887, 1542103, 42582340, 01791294, 0330253, 2187543, 5719450, 2686816 ####[facility] [address] [place] [address] INR Coag (PPP) [Relative time] 1.2 {INR} Invalid Interpretation Code [facility] Comment on above: Result Comment: INR results are specifically intended to assess patients stabilized on long-term Anticoagulation therapy suggested INR?s ?Less Intensive Anticoagulation? 2.0 ? 3.0 Conventional Range 3.0 ? 4.5 Performed By: #### 2 001341, 4371562, 6226336, 71095997, 86367919, 3949902, 7364453, 0293903, 9654421 ####[facility] [address] [place] [address] PT Coag (PPP) [Time] 13.1 second(s) High 9.4-12.5 [facility] Comment on above: Result Comment: 15 [...] ranges were obtained from a study by cuba Maldonado al. prepared from 1437 samples obtained at 7 different centers using the same coagulation reagent and instrumentation as [facility]. Currently there are no coagulation studies available worldwide for children to 14 days, and no normal ranges. Performed By: #### 2 754388, 6912848, 7624101, 50533082, 52687092, 6632709, 0248212, 8208448, 8211103 ####[facility] [address] [place] [address] Pre-Arrival Noteon 3 Pre-Arrival Note Pre-Arrival Summary Name: , BEA Current Date: 04/17/2023 20:28:42 EST Gender: Female Date of : Age: 73 Pre-Arrival Type: EMS ETA: 04/17/2023 20:52:00 EST Primary Care Physician: Presenting Problem: Fall, Hit head Pre-Arrival User: Bernadine Littlejohn RN Referring Source: Location: [place] Completion Date/Time: 04/17/2023 20:22:00 [facility] Emergency Department Pre-Hospital Report Form Vital Signs: 107/54, 80HR, 97% RA Pre-Hospital Report: Fall, Hit head on table Treatment in Route: 2LAC Response to Treatment: Misc. Issues: Normal [facility] Troponinon 04-17-2023 Troponin 8.90 pg/mL Low 10.10-27.10 [facility] Comment on above: Result Comment: The 95% CI (Confidence Interval) PPV (Positive Predictive Value) for myocardial infarction in females is 38 pg/mL, in males 51 pg/mL. The results should be used in conjunction with clinical conditions of myocardial infarction. (Access High Sensitivity Troponin I Instructions For Use, [employer], November 2017) Performed By: #### 2 323342, 5536511, 6745702, 02135660, 03210569, 0309024, 1981504, 4932109, 1625779 ####[facility] [address] [place] [address] eGFRon 04-17-2023 eGFR 31 mL/min/1.73 m2 Low >=59 [facility] Comment on above: Order Comment: Order added by Discern Expert. Performed By: #### 2 338441, 3156258, 0396282, 21400877, 70400982, 6202124, 8726535, 0181111, 6288821 ####[facility] [address] [place] [address] GLYCOHEMOGLOBIN A1Con 2022 ADA RECOMMENDATION SEE BELOW Normal [facility] Comment on above: Result Comment: ADA RECOMMENDED LIMIT 4.0 - 6.0 ADA THERAPEUTIC TARGET < 7.0 ACTION SUGGESTED > 7.0 Performed By: #### A 1C #### [facility] [address] [place] [address] Dr. Vanessa Denis Glucose [Mass/Vol] 223 mg/dL Normal [facility] Comment on above: Performed By: #### A 1C #### [facility] [address] [place] [address] Dr. Vanessa Denis HbA1c (Bld) [Mass fraction] 9.4 % Critically high 4.5-6.[address] [facility] Comment on above: Performed By: #### A 1C #### [facility] [address] [place] [address] Dr. Vanessa Denis PROF 14(COMP METB)on 023 Albumin [Mass/Vol] 3.4 g/dL Normal 3.4-5.0 [facility] Comment on above: Performed By: #### C MP #### [facility] [address] [place] [address] Dr. Vanessa Denis Albumin/Globulin [Mass ratio] 0.8 {ratio} Normal [facility] Comment on above: Performed By: #### C MP #### [facility] [address] [place] [address] Dr. Vanessa Denis ALP [Catalytic activity/Vol] 71 U/L Normal 46-[address] [facility] Comment on above: Performed By: #### C MP #### [facility] [address] [place] [address] Dr. Vanessa Denis ALT [Catalytic activity/Vol] 25 U/L Normal 14-[address] [facility] Comment on above: Performed By: #### C MP #### [facility] [address] [place] [address] Dr. Vanessa Denis Anion gap [Moles/Vol] 6.7 mmol/L Normal [facility] Comment on above: Performed By: #### C MP #### [facility] [address] [place] [address] Dr. Vanessa Denis AST [Catalytic activity/Vol] 19 U/L Normal 15-[address] [facility] Comment on above: Performed By: #### C MP #### [facility] [address] [place] [address] Dr. Vanessa Denis Bilirubin [Mass/Vol] 0.9 mg/dL Normal 0.2-1.[address] [facility] Comment on above: Performed By: #### C MP #### [facility] [address] [place] [address] Dr. Vanessa Denis Calcium [Mass/Vol] 9.5 mg/dL Normal 8.5-10.1 [facility] Comment on above: Performed By: #### C MP #### [facility] [address] [address] [address] Vanessa Denis Chloride [Moles/Vol] 102 mmol/L Normal 98-[address] [facility] Comment on above: Performed By: #### C MP #### [facility] [address] [address] [address] Vanessa Denis CO2 [Moles/Vol] 35.2 mmol/L Critically high 21.0-32.[address] [facility] Comment on above: Performed By: #### C MP #### [facility] [address] [place] [address] Dr. Vanessa Denis Creatinine [Mass/Vol] 1.23 mg/dL Critically high 0.55-1.[address] [facility] Comment on above: Performed By: #### C MP #### [facility] [address] [place] [address] Dr. Vanessa Denis EGFR-AF PRYDEINIG 52 mL/min/1.73m2 Critically low >=[address] [facility] Comment on above: Performed By: #### C MP #### [facility] [address] [place] [address] Dr. Vanessa Denis EGFR-NON AF PRYDEINIG 43 mL/min/1.73m2 Critically low >=[address] [facility] Comment on above: Performed By: #### C MP #### [facility] [address] [address] [address] Vanessa Denis Globulin (S) [Mass/Vol] 4.1 g/dL Normal [facility] Comment on above: Performed By: #### C MP #### [facility] [address] [place] [address] Dr. Vanessa Denis Glucose [Mass/Vol] 267 mg/dL Critically high 74-106 [facility] Comment on above: Performed By: #### C MP #### [facility] [address] [place] [address] Dr. Vanessa Denis Potassium [Moles/Vol] 4.9 mmol/L Normal 3.5-5.[address] [facility] Comment on above: Performed By: #### C MP #### [facility] [address] [address] [address] Vanessa Denis Protein [Mass/Vol] 7.5 g/dL Normal 6.4-8.2 [facility] Comment on above: Performed By: #### C MP #### [facility] [address] [address] [address] Vanessa Denis Sodium [Moles/Vol] 139 mmol/L Normal 136-145 [facility] Comment on above: Performed By: #### C MP #### [facility] [address] [address] [address] Vanessa Denis Urea nitrogen [Mass/Vol] 26.0 mg/dL Critically high 7.0-18.[address] [facility] Comment on above: Performed By: #### C MP #### [facility] [address] [address] [address] Vanessa Denis Urea nitrogen/Creatinine [Mass ratio] 21.1 mg/mg Normal [facility] Comment on above: Performed By: #### C MP #### [facility] [address] [place] [address] Dr. Vanessa Denis CTA CHEST WO W [...] TWYLA CONTEH Date: 2022-05-30 14:23 Normal [facility] GLYCOHEMOGLOBIN A1Con 2022 ADA RECOMMENDATION SEE BELOW Normal [facility] Comment on above: Result Comment: ADA RECOMMENDED LIMIT 4.0 - 6.0 ADA THERAPEUTIC TARGET < 7.0 ACTION SUGGESTED > 7.0 Performed By: #### A 1C #### [facility] [address] [place] [address] Dr. Vanessa Denis Glucose [Mass/Vol] 203 mg/dL Normal [facility] Comment on above: Performed By: #### A 1C #### [facility] [address] [place] [address] Dr. Vanessa Denis HbA1c (Bld) [Mass fraction] 8.7 % Critically high 4.5-6.[address] [facility] Comment on above: Performed By: #### A 1C #### [facility] [address] [place] [address] Dr. Vanessa Denis HEMOGRAM AND PLATELon 2022 Hematocrit (Bld) [Volume fraction] 45.4 % Normal 36.0-48.[address] [facility] Comment on above: Performed By: #### H H #### [facility] [address] [place] [address] Dr. Vanessa Denis Hemoglobin (Bld) [Mass/Vol] 14.5 g/dL Normal 12.0-16.0 [facility] Comment on above: Performed By: #### H H #### [facility] [address] [place] [address] Dr. Vanessa Denis MCH (RBC) [Entitic mass] 29.0 pg Normal 26.7-34.0 [facility] Comment on above: Performed By: #### H H #### [facility] [address] [place] [address] Dr. Vanessa Denis MCHC (RBC) [Mass/Vol] 31.9 g/dL Normal 29.9-35.2 [facility] Comment on above: Performed By: #### H H #### [facility] [address] [address] [address] Vanessa Denis MCV (RBC) [Entitic vol] 90.8 fL Normal 81.0-99.[address] [facility] Comment on above: Performed By: #### H H #### [facility] [address] [address] [address] Vanessa Denis PLT 164 103/ul Normal 150-[address] [facility] Comment on above: Performed By: #### H H #### [facility] [address] [address] [address] Vanessa Denis RBC 5.00 106/ul Normal 4.20-5.[address] [facility] Comment on above: Performed By: #### H H #### [facility] [address] [place] [address] Dr. Vanessa Denis WBC 7.6 103/ul Normal 4.0-11.[address] [facility] Comment on above: Performed By: #### H H #### [facility] [address] [place] [address] Dr. Vanessa Denis LIPID PROFILEon 05-30-2022 CHOL-HDL RATIO NORM SEE BELOW Normal [facility] Comment on above: Result Comment: 3.3 - 4.4 LOW RISK 4.4 - 7.1 AVERAGE RISK 7.1 - 11.0 MODERATE RISK >11.0 HIGH RISK Performed By: #### L IPID, TSH #### [facility] [address] [place] [address] Dr. Vanessa Denis Cholesterol [Mass/Vol] 110 mg/dL Normal <=200 [facility] Comment on above: Performed By: #### L IPID, TSH #### [facility] [address] [address] [address] Vanessa Denis Cholesterol in HDL [Mass/Vol] 51 mg/dL Normal 40-[address] [facility] Comment on above: Performed By: #### L IPID, TSH #### [facility] [address] [place] [address] Dr. Vanessa Denis Cholesterol in LDL [Mass/Vol] 39.4 mg/dL Normal [facility] Comment on above: Performed By: #### L IPID, TSH #### [facility] [address] [address] [address] Vanessa Denis Cholesterol.total/Chol esterol in HDL [Mass ratio] 2.2 {ratio} Normal [facility] Comment on above: Performed By: #### L IPID, TSH #### [facility] [address] [address] [address] Vanessa Denis HDL NORMAL > or = 60 mg/dl - LOW CARDIOVASCULAR RISK <40 mg/dl - HIGH CARDIOVASCULAR RISK Normal [facility] Comment on above: Performed By: #### L IPID, TSH #### [facility] [address] [address] [address] Vanessa Denis LDL CALC NORMAL SEE BELOW Normal [facility] Comment on above: Result Comment: <100 mg/dl OPTIMAL 100 - 129 mg/dl NEAR OR ABOVE OPTIMAL 130 - 159 mg/dl BORDERLINE HIGH 160 - 189 mg/dl HIGH >190 mg/dl VERY HIGH Performed By: #### L IPID, TSH #### [facility] [address] [address] [address] Vanessa Denis Triglyceride [Mass/Vol] 98 mg/dL Normal <=[address] [facility] Comment on above: Performed By: #### L IPID, TSH #### [facility] [address] [address] [address] Vanessa Denis VLDL CALC 19.6 mg/dL Normal [facility] Comment on above: Performed By: #### L IPID, TSH #### [facility] [address] [address] [address] Vanessa Denis PROF 14(COMP METB)on 023 Albumin [Mass/Vol] 3.4 g/dL Normal 3.4-5.0 [facility] Comment on above: Performed By: #### C MP #### [facility] [address] [address] [address] Vanessa Denis Albumin/Globulin [Mass ratio] 0.9 {ratio} Normal [facility] Comment on above: Performed By: #### C MP #### [facility] [address] [place] [address] Dr. Vanessa Denis ALP [Catalytic activity/Vol] 68 U/L Normal 46-[address] [facility] Comment on above: Performed By: #### C MP #### [facility] [address] [place] [address] Dr. Vanessa Denis ALT [Catalytic activity/Vol] 23 U/L Normal 14-[address] [facility] Comment on above: Performed By: #### C MP #### [facility] [address] [place] [address] Dr. Vanessa Denis Anion gap [Moles/Vol] 10.1 mmol/L Normal [facility] Comment on above: Performed By: #### C MP #### [facility] [address] [place] [address] Dr. Vanessa Denis AST [Catalytic activity/Vol] 21 U/L Normal 15-[address] [facility] Comment on above: Performed By: #### C MP #### [facility] [address] [place] [address] Dr. Vanessa Denis Bilirubin [Mass/Vol] 0.9 mg/dL Normal 0.2-1.[address] [facility] Comment on above: Performed By: #### C MP #### [facility] [address] [place] [address] Dr. Vanessa Denis Calcium [Mass/Vol] 9.2 mg/dL Normal 8.5-10.1 [facility] Comment on above: Performed By: #### C MP #### [facility] [address] [place] [address] Dr. Vanessa Denis Chloride [Moles/Vol] 101 mmol/L Normal 98-107 [facility] Comment on above: Performed By: #### C MP #### [facility] [address] [place] [address] Dr. Vanessa Denis CO2 [Moles/Vol] 31.5 mmol/L Normal 21.0-32.0 [facility] Comment on above: Performed By: #### C MP #### [facility] [address] [place] [address] Dr. Vanessa Denis Creatinine [Mass/Vol] 1.15 mg/dL Critically high 0.55-1.[address] [facility] Comment on above: Performed By: #### C MP #### [facility] [address] [address] [address] Vanessa Denis EGFR-AF PRYDEINIG 56 mL/min/1.73m2 Critically low >=[address] [facility] Comment on above: Performed By: #### C MP #### [facility] [address] [address] [address] Vanessa Denis EGFR-NON AF PRYDEINIG 46 mL/min/1.73m2 Critically low >=[address] [facility] Comment on above: Performed By: #### C MP #### [facility] [address] [place] [address] Dr. Vanessa Denis Globulin (S) [Mass/Vol] 4.0 g/dL Normal [facility] Comment on above: Performed By: #### C MP #### [facility] [address] [address] [address] Vanessa Denis Glucose [Mass/Vol] 254 mg/dL Critically high 74-106 [facility] Comment on above: Performed By: #### C MP #### [facility] [address] [place] [address] Dr. Vanessa Denis Potassium [Moles/Vol] 4.6 mmol/L Normal 3.5-5.[address] [facility] Comment on above: Performed By: #### C MP #### [facility] [address] [address] [address] Vanessa Denis Protein [Mass/Vol] 7.4 g/dL Normal 6.4-8.2 [facility] Comment on above: Performed By: #### C MP #### [facility] [address] [place] [address] Dr. Vanessa Denis Sodium [Moles/Vol] 138 mmol/L Normal 136-145 [facility] Comment on above: Performed By: #### C MP #### [facility] [address] [address] [address] Vanessa Denis Urea nitrogen [Mass/Vol] 24.0 mg/dL Critically high 7.0-18.[address] [facility] Comment on above: Performed By: #### C MP #### [facility] [address] [place] [address] Dr. Vanessa Denis Urea nitrogen/Creatinine [Mass ratio] 20.9 mg/mg Normal [facility] Comment on above: Performed By: #### C MP #### [facility] [address] [place] [address] Dr. Vanessa Denis TSHon 05-30-2022 TSH 2.067 uIU/mL Normal 0.358-3.740 [facility] Comment on above: Performed By: #### L IPID, TSH #### [facility] [address] [place] [address] Dr. Vanessa Denis Vital Signs Date Time Vital Sign Value Performing Clinician Facility 06-24-2023 13:52-0500 Blood Pressure Location Doug FERNANDEZ [facility] 06-24-2023 13:52-0500 Diastolic blood pressure 78 mm[Hg] Doug FERNANDEZ [facility] 06-24-2023 13:52-0500 Heart rate 68 /min Doug SORTOL [facility] 06-24-2023 13:52-0500 Respiratory rate 16 /min Doug FERNANDEZ [facility] 06-24-2023 13:52-0500 Systolic blood pressure 110 mm[Hg] Doug SORTOL [facility] 06-09-2023 11:52-0500 Body height 152.4 cm Dg Proctor MD Work Phone: [facility] 06-09-2023 11:52-0500 Body mass index (BMI) [Ratio] 32.42 kg/m2 Dg Proctor MD Work Phone: [facility] 06-09-2023 11:52-0500 Body weight 75.3 kg Dg Proctor MD Work Phone: [facility] 04-18-2023 00:39-0500 Diastolic blood pressure 95 mm[Hg] Kaylinn Dokken [facility] 04-18-2023 00:39-0500 Heart rate 74 /min Kaylinn Dokken [facility] 04-18-2023 00:39-0500 Mean blood pressure 117 mm[Hg] Kaylinn Dokken [facility] 04-18-2023 00:39-0500 Respiratory rate 22 /min Kaylinn Dokken [facility] 04-18-2023 00:39-0500 SaO2% (BldA) [Mass fraction] 97 % Kaylinn Dokken [facility] 04-18-2023 00:39-0500 Systolic blood pressure 161 mm[Hg] Kaylinn Dokken [facility] 04-17-2023 23:43-0500 Diastolic blood pressure 71 mm[Hg] Kaylinn Dokken [facility] 04-17-2023 23:43-0500 Heart rate 63 /min Kaylinn Dokken [facility] 04-17-2023 23:43-0500 Mean blood pressure 98 mm[Hg] Kaylinn Dokken [facility] 04-17-2023 23:43-0500 Respiratory rate 15 /min Kaylinn Dokken [facility] 04-17-2023 23:43-0500 SaO2% (BldA) [Mass fraction] 96 % Kaylinn Dokken [facility] 04-17-2023 23:43-0500 Systolic blood pressure 151 mm[Hg] Kaylinn Dokken [facility] 04-17-2023 23:23-0500 Body temperature 97.88 [degF] Kaylinn Dokken [facility] 04-17-2023 23:23-0500 Diastolic blood pressure 82 mm[Hg] Kaylinn Dokken [facility] 04-17-2023 23:23-0500 Heart rate 68 /min Kaylinn Dokken [facility] 04-17-2023 23:23-0500 Mean blood pressure 99 mm[Hg] Kaylinn Dokken [facility] 04-17-2023 23:23-0500 Respiratory rate 20 /min Kaylinn Dokken [facility] 04-17-2023 23:23-0500 SaO2% (BldA) [Mass fraction] 94 % Kaylinn Dokken [facility] 04-17-2023 23:23-0500 Systolic blood pressure 134 mm[Hg] Kaylinn Dokken [facility] 04-17-2023 22:39-0500 Respiratory rate 18 /min Kaylinn [facility] 04-17-2023 21:50-0500 Respiratory rate 18 /min Kaylinn Dokken [facility] 04-17-2023 20:50-0500 Body temperature 98.06 [degF] Kaylinn Dokken [facility] 04-17-2023 20:50-0500 Heart rate 72 /min Kaylinn Dokken [facility] 04-17-2023 20:50-0500 Respiratory rate 18 /min Nancy Stern [facility] 04-17-2023 20:29-0500 Body temperature 98.06 [degF] Nancy Stern [facility] 04-17-2023 20:29-0500 Heart rate 76 /min Nancy Stern [facility] 02-23-2023 13:40-0400 Body height 152.4 cm Nicolás Orlando Other [facility] Other 02-23-2023 13:40-0400 Body mass index (BMI) [Ratio] 34.72 kg/m2 Nicolás Orlando Other [facility] Other 02-23-2023 13:40-0400 Body temperature 96.8 [degF] Nicolás Orlando Other [facility] Other 02-23-2023 13:40-0400 Body weight 80.65 kg Nicolás Orlando Other [facility] Other 02-23-2023 13:40-0400 Diastolic blood pressure 82 mm[Hg] Nicolás Orlando Other [facility] Other 02-23-2023 13:40-0400 Respiratory rate 20 /min Nicolás Orlando Other [facility] Other 02-23-2023 13:40-0400 SaO2% (BldA) [Mass fraction] 99 % Nicolás Orlando Other [facility] Other 02-23-2023 13:40-0400 Systolic blood pressure 132 mm[Hg] Nicolás Orlando Other [facility] Other 12-31-2022 09:00-0400 Body height 152.4 cm Nicolás Orlando Other [facility] Other 12-31-2022 09:00-0400 Body mass index (BMI) [Ratio] 32.14 kg/m2 Nicolás Orlando Other [facility] Other 12-31-2022 09:00-0400 Body temperature 96.3 [degF] Nicolás Orlando Other [facility] Other 12-31-2022 09:00-0400 Body weight 74.66 kg Nicolás Orlando Other [facility] Other 12-31-2022 09:00-0400 Diastolic blood pressure 56 mm[Hg] Nicolás Orlando Other [facility] Other 12-31-2022 09:00-0400 Respiratory rate 20 /min Nicolás Orlando Other [facility] Other 12-31-2022 09:00-0400 SaO2% (BldA) [Mass fraction] 98 % Nicolás Orlando Other [facility] Other 12-31-2022 09:00-0400 Systolic blood pressure 91 mm[Hg] Nicolás Orlando Other [facility] Other Encounters Encounter Date Encounter Type Care Provider Facility Start: 10-13-2023 ambulatory KD OZUNA Facility:[facility] Start: 06-30-2023 End: 07-01-2023 ambulatory MD NICOLÁS PERRY Facility:[facility] Start: 06-24-2023 End: 06-25-2023 ambulatory Doug FERNANDEZ Facility:[facility] Start: 06-24-2023 End: 06-24-2023 Patient encounter procedure Doug FERNANDEZ General [facility] [place] Start: 06-09-2023 Bamboo flowsheet Dg Proctor MD Work Phone: [facility] Start: 06-09-2023 Bamboo flowsheet Dg Proctor MD Work Phone: [facility] Start: 06-09-2023 End: 06-09-2023 ambulatory DG PROCTOR Not Available Start: 06-09-2023 End: 06-09-2023 Office outpatient new 45 minutes Dg Proctor MD Work Phone: [facility] Comment on above: Sequelae of cerebral infarction (Primary Dx); Polyneuropathy Start: 05-25-2023 ambulatory Nancy Stern Facility :[facility] Start: 05-21-2023 End: 05-21-2023 ambulatory Nicolás Orlando Other [facility] Other Start: 05-21-2023 Office outpatient vi sit 25 minutes Nicolás Orlando [facility] Start: 04-17-2023 End: 04-18-2023 Emergency department patient visit Nancy Stern Facility:[facility] Start: 04-17-2023 End: 04-18-2023 Emergency department patient visit Nancy Stern [facility] Start: 04-08-2023 End: 04-08-2023 ambulatory Nicolás Orlando Other [facility] Other Start: 04-08-2023 Telephone encounter Nicolás Orlando [facility] Start: 02-27-2023 ambulatory Nancy Stern Facility :[facility] Start: 02-23-2023 End: 02-23-2023 ambulatory Nicolás Orlando Other [facility] Other Start: 02-23-2023 Office outpatient vi sit 25 minutes Nicolás Orlando [facility] Start: 12-31-2022 End: 12-31-2022 ambulatory Nicolás Orlando Other [facility] Other Start: 12-31-2022 Office outpatient ne w 45 minutes Nicolás Orlando [facility] Start: 08-13-2022 End: 08-13-2022 ambulatory DARRION SHAMMO Facility:[facility] Start: 08-11-2022 End: 08-11-2022 ambulatory DARRION SHAMMO Facility:[facility] Start: 05-30-2022 End: 05-31-2022 ambulatory DARRION SHAMMO Facility:[facility] Start: 05-28-2022 End: 05-28-[address] JENIFER CASTILLO Facility:[facility] Start: 07-08-2021 End: 02-03-2022 ambulatory [place] Procedures Date Procedure Procedure Detail Performing Clinician Start: 05-19-2013 Colonoscopy Doug CAMILO Colonoscopy Nancy Stern Dilation of urethra Doug FERNANDEZ Division of Left Ank le Tendon, Open Approach Doug FERNANDEZ Excision of Left Tar julia, Open Approach Doug FERNANDEZ Fusion of Left Tarsa l Joint with Internal Fixation Device, Open Approach Doug FERNANDEZ Repair of cleft palate Sampson nancy FERNANDEZ Tonsillectomy Nancy Stern Tonsillectomy and adenoidectomy Doug FERNANDEZ Plan of Treatment Date Care Activity Detail [...] Visit [facility] [address] [place] [address] Dg Proctor MD [address] [facility] [address] [place] [address] [facility] Start: 1950 Medicare Annual Well ness (AWV) Medicare Annual Wellness (AWV) [facility] Start: 1950 Screening for malign ant neoplasm of colon [facility] Immunizations Immunization Date Immunization Notes Care Provider Fa cili 02-19-2023 influenza virus vaccine, unspecified formulation Doug FERNANDEZ [facility] [place] 02-06-2022 SARS-CoV-2 (COVID-19 ) mRNAMUL.[id number] Doug FERNANDEZ [facility] [place] 05-06-2021 SARS-CoV-2 (COVID-19 ) mRNA BNT-162b2 vax Doug FERNANDEZ [facility] [place] 07-06-2020 SARS-CoV-2 (COVID-19 ) Ad26 vaccine, recombinant Doug FERNANDEZ [facility] [place] Payers Date Payer Category Payer Medicaid MEDICAID [facility] [id number] 2021-Present [phone] [address] [place] [address] Medicaid [id number] 2020 Private Health Insurance [id number] 2013 Medicare MEDICARE MEDICAR E PART B [id number] 2013-[place] [address] Medicare [id number] 1959 Medicaid [id number] 1959 Medicare [id number] 1950 Unknown [id number] 93 1948 Unknown [id number] 93 1948 Unknown [id number] [id number] 93 1948 Unknown [id number] [id number] 93 1948 Unknown [id number] [id number] 93 1948 Unknown [id number] [id number] 259 1948 Unknown [id number] [id number] 27 1948 Unknown [id number] [id number] 27 1948 Unknown [id number] [id number] 27 1948 Unknown [id number] [id number] 27 1948 Unknown [id number] 27 Social History Date Type Detail Facility Unknown if ever smoked [facility] Other Sex Assigned At [facility] Start: 07-10-2020 End: 06-24-2023 Tobacco smoking status Ex-smoker (finding) [facility] Tobacco smoking status [facility] Tobacco smoking consumption unknown [facility] Start: 1950 Sex Assigned At Not on file N [facility] Healthcare Tobacco smoking status Never [facility] [place] Functional Status Date Assessment Result Facility 06-24-2023 Functional Status N/A [facility] [place] 04-17-2023 Functional Status N/A [facility] Clinical Notes 12-31-2022 to 06-24-2023 Dg Proctor MD - 06/09/2023 12:27 PM Zena Proctor MD - 06/09/2023 12:26 PM Zena Proctor MD - 06/09/2023 11:15 AM EST Note Date & Type Note Facility 06-24-2023 Note Chief Complaint consultation for colonoscopy HPI Staff 73 year old female presents on consultation from Dr. Rollins for screening colonoscopy. Denies abdominal or rectal pain. No rectal bleeding or change in bowel habits. Denies nausea or vomiting. No unexplained weight loss. Last colonoscopy completed 04/2013 with diverticulosis. No known family history of colon cancer. History of Present Illness 73 yo female with h/o htn, DMII, hyperlipidemia, CKD, stage 4, hypothyroidism, migraines, GERD, schizoaffective d/o, referred for colorectal screening; denies change in bms or blood in stools; no abdominal complaints; on baby asa daily, no NSAID use, no SBE prophylaxis; no abdominal operations significant last colonoscopy 2013 with diverticulosis; no fmhx of GI malignancy or IBD; no tobacco use. Review of Systems PHQ Score Initial Depression Screen Score: 0 SCORE ROS - Provider Constitutional: no fever, no sweats, no weight loss. Eyes: no glasses, no blurred vision, no visual loss. ENMT: no dentures, no hoarseness, no swallowing difficulties, no hearing loss, no ear infection(s), no nose bleeds. Cardiovascular: normal blood pressure, no chest pain, regular heartbeat, no heart murmur. Respiratory: no shortness of breath, no cough, no asthma, no wheezing. Gastrointestinal: no nausea, no vomiting, no diarrhea, no constipation, no blood in stool, no change in bowel habits, no abdominal pain, no hepatitis. Genitourinary: no kidney stones, no urine infection, no dysuria. Musculoskeletal: no pain, no weakness. Skin: no changing moles, no rash, no skin lumps. Neurologic: no seizures, no epilepsy, no headache. Psychiatric: no emotional or psychiatric problem. Heme/Lymph: no bleeding problems, no anemia, no blood clots, no transfusions. Allergy/Immunologic: no swollen lymph nodes/glands, no IV drug abuse. Other: Additional ROS info: Except as noted in the above Review of Systems and in the History of Present Illness, all other systems have been reviewed and are negative or noncontributory. Physical Exam Vitals & Measurements HR: 68(Peripheral) RR: 16 BP: 110/78 HT: 59 in HT: 150 cm WT: 73.9 kg WT: 162.58 lb BMI: 32.84 Assessment/Plan 1. Screening for malignant neoplasm of colon (Z12.11: Encounter for screening for malignant neoplasm of colon) plan colonoscopy under anesthesia, informed consent obtained. Follow-up No qualifying data available Problem List/Past Medical History Ongoing Anemia of renal disease Anxiety BMI 32.0-32.9,adult Chronic kidney disease due to hypertension.. Chronic kidney disease stage 4 Combined systolic and diastolic heart failure Depression Diabetes Diverticulosis Edema of lower extremity Essential hypertension GERD (gastroesophageal reflux disease) HTN (hypertension) Hyperlipidemia Hypothyroidism Lymphedema Migraines Obesity Osteoporosis Schizoaffective disorder Screening for malignant neoplasm of colon Secondary hyperparathyroidism Stenosis of aorta TIA (transient ischemic attack) Historical Anemia Arthritis Asthma CKD stage 3 Diabetes mellitus type 2 Headache Heart murmur duration, short Hypertension Hypothyroid Psychiatric disorder Stroke Procedure/Surgical History Colonoscopy (05/19/2013), Division of Left Ankle Tendon, Open Approach, Excision of Left Tarsal, Open Approach, Fusion of Left Tarsal Joint with Internal Fixation Device, Open Approach, Repair of cleft palate, Tonsillectomy and adenoidectomy, Urethral dilatation. Medications alendronate 70 mg oral tablet, Oral, qWeek aspirin 81 mg Oral EC Tab, 81 mg= 1 tab(s), Oral, Daily ferrous sulfate, 325 mg, Oral, Daily furosemide 20 mg Tab, Oral, Daily hydrochlorothiazide-lisinopril 12.5 mg-20 mg Tab, 1 tab(s), Oral, Daily magnesium oxide 400 mg Tab, 400 mg= 1 tab(s), Oral, Daily Mounjaro 5 mg/0.5 mL subcutaneous solution, 5 mg, SubCutaneous, qWeek ondansetron 4 mg Dis Tab, 4 mg= 1 tab(s), Oral, q4hr, PRN Pantoprazole [address] Tab, 20 mg= 1 tab(s), Oral, Daily potassium chloride 20 mEq ER Tab, 20 mEq= 1 tab(s), Oral, Daily Rexulti 0.5 mg oral tablet, 0.5 mg= 1 tab(s), Oral, Daily rosuvastatin 5 mg Tab, 5 mg= 1 tab(s), Oral, Daily Vitamin D3, 38222 unit(s), Oral, qWeek Zoloft 25 mg Tab, 25 mg= 1 tab(s), Oral, Daily Allergies No Known Allergies Social History Alcohol Current, Wine, 1-2 times per month, 06/24/2023 Substance Abuse - Denies Substance Abuse, 06/24/2023 Tobacco Former smoker, quit more than 30 days ago Tobacco Use:. Never Smokeless Tobacco Use:. Cigarettes, 06/24/2023 Family History Acute myocardial infarction: Father. Diabetes mellitus type 1: Mother. Diabetes mellitus type 2: Sister. Mental disorder: Sister. Seizure: Sister. Immunizations Vaccine Date Status influenza virus vaccine, inactivated 02/19/2023 Recorded SARS-CoV-2 (COVID-19) mRNAMUL.[id number] 02/06/2022 Recorded SARS-CoV-2 (COVID-19) mRNA BNT-162b2 vax (more content not included)... [facility] Comment on above: Result Comment: Elec tronically Signed By: REBECCA KILLIAN, Doug Dominique\Date and Time Signed: 06/24/23 14:18 EST 06-09-2023 History of Present illness Narrative Associated Problem(s): Polyneuropathy TSH + fT4. Emphasized good A1c control. Associated Problem(s): Sequelae of cerebral infarction Echo c bubble study. ([place] or [place]). US carotids ([facility]). (Continue ASA.) Images from the original note were not included. Outpatient Progress Note Prev Appt: Visit date not found Chief Complaint Patient presents with Memory Loss Assessment and Plan - Sequelae of cerebral infarction Echo c bubble study. ([place] or [place]). US carotids ([facility]). (Continue ASA.) Polyneuropathy TSH [...] memory to pt. Stroke - None further. 2018, hemipar R face & hand. -> [facility]. Known DM. Onset Semeiology Imaging US carotids (03/2020, [place]) - < 50% B CT head (12/2019, [place]) - neg Testing Surgery Failed Dx PN [...] mouth in the morning. D3-50 1.25 MG (99903 UT) capsule ferrous sulfate 325 (65 Fe) [...] as of 06/09/2023. documented in this encounter [facility] 05-21-2023 Evaluation note Encounter Date Diagnosis Assessment [...] of any breach, fraud, or malicious third libertarian actors and no personal patient information was compromised. [facility] Other 12-23-2023 Hospital Discharge instructions Patient Education [...] Ask your health care provider for a mlcx-[id number] plan for gradually returning to activities. Ask [...] your friends, family, a trusted colleague, and exhaust worker about your injury, symptoms, and restrictions. Have them watch for any new or worsening problems. General instructions Take dxul-cwn-nrprhqi and prescription medicines only as told by [...] provider. Document Revised: 02/24/2020 Document Reviewed: 02/24/2020 [employer] Patient Education 2022 [employer]. Follow Up Care 04/17/2023 20:26:54 With:RICHARD VARGAS Address: [address] [place] [address]- Business (1) When:04/20/2023 Comments:Follow-up with your primary care provider in 3 to 5 days. If symptoms worsen, do not improve, or new symptoms arise please report back to emergency department for further evaluation. [facility]12-22-2023 Evaluation + Plan noteExtracted from: Title:ED Note [...] Date:06/30/2023 10:00:00 AM Scheduled Provider:KEN OZUNA PA-C Location:[facility] Appointment Type:URO Office Visit [facility]10-30-2023 Evaluation note* Encounter Date Diagnosis Assessment Notes [...] recent gout flare. Continue monitor without medications. [facility] Other 09-06-2023 Evaluation note* Encounter Date Diagnosis Assessment Notes [...] We will check also for paraproteinemia work-up. [facility] Other Evaluation + Plan note Future Appointments Appointment Date:06/30/2023 10:00:00 AM Scheduled Provider:KEN OZUNA PA-C Location:[facility] Appointment Type:URO Office Visit General Surgery [place] Evaluation noteNo InformationNort Connect Controls Other Evaluation note* Diagnosis Sequelae of cerebral [...] TONSILLECTOMY AND ADENOIDECTOMY Hospitalization History SEE ABOVE [facility] Other History general Narrative - Reported* Type [...] TONSILLECTOMY AND ADENOIDECTOMY Hospitalization History SEE ABOVE [facility] Other Hospital course Narrative No data available for this section [facility] No data available for this section [facility] [place] Progress note No data available for this section [facility] Summary Purpose Family History No Family History Records FoundNo Family History Records Found No data available for this section No Family History Records Found No data available for this section No Family History Records Found Advance Directives No Advanced Directives Records FoundNo Advanced Directives Records FoundNo Advanced Directives Records FoundNo Advanced Directives Records Found Additional Source Comments INFORMATION SOURCE (unrecogn ized section and content) DATE CREATED AUTHOR 02/03/2022 [facility] DATE CREATED AUTHOR AUTHOR'S ORGANIZ ATION 08/22/2022 [facility] DATE CREATED AUTHOR AUTHOR'S ORGANIZ ATION 06/10/2023 [facility] EPIC DATE CREATED AUTHOR AUTHOR'S ORGANIZ ATION 07/04/2023 [facility] REASON FOR VISIT (unrecogniz ed section and content) Reason Comments Memory Loss Patient Care team informatio n (unrecognized section and content) [employer] Relationship Specialty Start Date End Date Eduardo Atkins MD [address] [facility] [address] [place] [address] PCP - General Family Medicine 06/09/23 FOR [...] BE BASED ON THE PRIMARY CLINICAL RECORDS. [facility]. provides no warranty or guarantee of the accuracy or completeness of information in this document.
== END 2023-07-14 10:38 | disposition home or self-care (01) ==
LOC: US 10:37
PROVIDERS: PCP Nurse Practitioner Primary Care; Visit Provider Psychiatry & Neurology Neurology
DX: I65.23 Occlusion and stenosis of bilateral carotid arteries (principal); I63.81 Other cerebral infarction due to occlusion or stenosis of small artery; I63.50 Cerebral infarction due to unspecified occlusion or stenosis of unspecified cerebral artery
CPT/HCPCS: 93880

== ENCOUNTER 2023-07-15 10:36 | Outpatient (OUT) | payer MEDICARE, MEDICAID, SELFPAY ==
--- NOTE | 2023-07-15 10:39 | US_ITS ---
[place] [id number] Patient Name: AVILA VALENZUELA MRN: [id number] date: 1950 Sex: F Assigned Patient Location: Current Patient Location: US Accession/Order Number: [id number] Exam Date: 07/15/2023 10:40 Report Date: 07/15/2023 12:27 At the request of: KEN OZUNA Procedure: US renal BI EXAMINATION: US renal BI HISTORY: Hydronephrosis N13.30, Bilateral Renal Cyst COMPARISON: No relevant comparison available. TECHNIQUE: Ultrasound examination was performed of the bladder. FINDINGS: Right Kidney: Normal in size and contour. The cortex measures 0.4 cm. Diffuse increase in cortical echotexture. 1.2 cm area of anechoic echogenicity in the upper pole. A simple parapelvic cyst is favored Height: 4.1 cm Length: 10.8 cm Width: 4.6 cm Left Kidney: In size and contour. The cortex measures 0.7 cm. Normal cortical echotexture. No solid cortical mass, hydronephrosis or obstructing nephrolithiasis Height: 4.5 cm Length: 10.1 cm Width: 3.7 cm Urinary bladder is normal with a volume of 62 mL US/US renal BI IMPRESSION: No hydronephrosis Bilateral renal cortical atrophy right greater than left Increased right cortical echotexture suggests medical renal disease 1.2 cm right renal parapelvic simple cyst Electronically authenticated by: TWYLA CONTEH Date: 07/15/2023 12:27
--- OUTSIDE RECORDS SUMMARY | 2023-07-15 10:53 | XMS_ITS | CCD ---
Author Organization [facility] Care Team Providers Care Film Process Operator Name Role Phone SHAMMO, DARRION Primary Care [...] DARRION Consulting Unavailable OrlandoNicolás calvillo Unavailable RICHARD VARGAS Primary Care Physician Unavailable Primary Care Provider UnavailDG Carmen Attending Unavailable Eduardo Atkins MD Primary Care Provider SHAMDARRION BEARDEN Primary Care Physician Nancy Stern Attending Unavailable Doug FERNANDEZ Attending Unavailable FRANDY ROLLINS Referring Unavailable SHAMMO, DARRION FLYNN Primary Care Unavailable KD OZUNA Attending Unavailab le SHAMMO, DARRION FLYNN Primary Care Unavailable MD NICOLÁS PERRY Referring [...] as needed Orally every 4 hrs Active [id number] 60 actuat albuterol 0.09 mg/actuat metered dose [...] Vitamin D Start: 05-28-2023 D3-50 1.25 MG (31503 UT) capsule ergocalciferol 1.25 mg oral capsule (4 sources) Provitamin D2 Compound take 1 capsule by mouth every week Vitamin D (Ergocalcifero l) 1.25 MG (74554 UT) 1 capsule Orally ONCE A WEEK [...] Vitamin D3 (2 sources) Start: 07-10-2020 take 08199 [IU] by mouth every week Vitamin D3 [...] Osteoporosis 06-10-2023 Chronic Other aftercare (1 source) 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 Lab Reports [id number] 1#1.00TIFF [facility] Physician Referralon 024 Physician Referral [id number] 4#1.00TIFF [facility] RAD - CT Reporton 07-03-2023 RAD - CT Report [id number] 3#1.00TIFF [facility] RAD - Ultrasound Reporton RAD - Ultrasound Report [id number] 0#1.00TIFF [facility] Screenson 07-03-2023 Screens [id number] #1.00TIFF Normal [facility] Custodial Recordson 06-30 Custodial Records [id number] #1.00TIFF Normal [facility] Ambulatory Visit Summaryon 0 06-30-2023 Ambulatory Visit [...] Hypothyroidism Lymphed (more content not included)... Normal [facility] Patient Educationon 06-30-19 Patient Education Nutrition BMI [...] numbers. This can be done either in American (U.S.) or metric measurements. Note that charts and online BMI calculators are available to help you find your BMI quickly and easily without having to do these calculations yourself. To calculate your BMI in American (U.S.) measurements: 1. Measure your weight in [...] for Disease Control and Prevention: www.cdc.gov ? [place] Heart Association: www.heart.org ? National Heart, Lung, and Blood [place]: www.nhlbi.nih.gov Summary ? Body mass index (BMI) is a number that is calculated from a person's weight and height. ? BMI may help estimate how much of a person's weight is composed of fat. BMI can help identify those who may be at higher risk for certain medical problems. ? BMI can be measured using American measurements or metric measurements. ? BMI charts are used to identify whether you are underweight, normal weight, overweight, or obese. This information is not intended to replace advice given to you by your health care provider. Make sure you discuss any questions you have with your health care provider. Document Revised: 01/04/2020 Document Reviewed: 11/11/2019 [employer] Patient Education ? 2022 [employer] [facility] Urology Office/Clinic Noteon 06-30-2023 Urology Office/Clinic Note [...] lowest daily dose and slowly titrate up S9axbmq as pt tolerates. I explained the most [...] ls of procedure prior to scheduling. Ordered: 89675 Measure Post Void residual urine and/or bladder capacity by US- non-imaging E&M of Est. Patient High 40-54 Min 97041 2. Bilateral renal cysts (N28.1: Cyst of kidney, acquired) MAURA Sept 2022 tiny, simple -no additional workup needed Ordered: E&M of Est. Patient High 40-54 Min 24166 US Renal 3. Hydronephrosis, right (N13.30: Unspecified [...] E&M of Est. Patient High 40-54 Min 68687 US Renal 4. BMI 34.0-34.9,adult (Z68.34: Body mass index [BMI] 34.0-34.9, adult) healthy diet encouraged Ordered: E&M of Est. Patient High 40-54 Min 34372 Orders: Body Mass Index (BMI) documented 3008F [...] Urnls Dip Stick Auto w/o Microscopy POC 36926 Total time spent reviewing previous notes/results/icu manager al documents, prepar (more content not included)... Normal [facility] Comment on above: Result Comment: Elec tronically Signed By: KEN OZUNA PA-C\.chin\Date and Time Signed: 06/30/23 12:51 EST Consent for Procedure/Surger yon 06-26-2023 Consent for Procedure/Surgery [id number] #1.00TIFF Normal [facility] Ambulatory Visit Summaryon 0 06-24-2023 Ambulatory Visit [...] KEN OZUNA PA-C Where: [facility] Facesheeton 06-24-2023 Facesheet [id number] 9#1.00TIFF [facility] Physician Referralon 024 Physician Referral [id number] #1.00TIFF [facility] ABO/Rh History Checkon 04-18 ABO/Rh History Check Patient discharged prior [facility] Comment on above: Performed By: #### 1 [id number], 34252574, 8206932, 56655142 ####[facility] [address] [place] [address] CT Head or Brain w/o Contras ton [...] Technologist: QUINCY Technical Comments Contrast: None Normal [facility] CT Spine Cervical w/o Contra [...] (Electronic Signature): 04/18/2023 8:45 am Signed by: Danet Pelaez MD, V. Transcribed by: GREG Technologist: QUINCY Normal [facility] Discharge Instructionson Discharge Instructions [id number] 8#1.00TIFF Normal [facility] ED Clinical Summaryon 2022 ED Clinical Summary [place] [address] ED Clinical Summary Person Information Name: AVILA VALENZUELA/[facility] Age: 73 Years : 1950 Sex: Female Language: American PCP: SAM KILLIAN, RICHARD Yu Marital Status: [...] 04/18/2023 00:43:24 04/18/2023 00:43:24 04/18/2023 00:43:24 ADDRESS: [address] [place] [address] [place] [phone] [facility] DOC NOTES: MEDICAL INFORMATION: Prescriptions Given: Medications [...] Follow up: With: Address: When: RICHARD VARGAS [address] [place] [address] Business (1) In 3 days 04/20/2023 Comments: Follow-up with your primary care provider in 3 to 5 days. If symptoms worsen, do not improve, or new symptoms arise please report back to emergency department for further evaluation. DIAGNOSIS: Closed head injury; Fall Normal [facility] ED Note-Physicianon 04-18-20 ED Note-Physician Basic Information Time Seen: Nate YI, Royal Beltran. 04/17/2023 20:31 Chief Complaint Pt arrrives [facility] for a fall. Pt states she [...] and Complexity of Problems Differential Diagnosis: [] [facility] Data External documents reviewed: [] My [...] RICHARD VARGAS In 3 days 04/20/2023 EST [address] [place] [id number] Business (1) Additional Instructions: Follow-up with your primary care provider in 3 to 5 days. If symptoms worsen, do not improve, or new symptoms arise please report back to emergency department for further evaluation. Patient Education Head Injury, Adult Attestation Patient seen (more content not included)... Normal [facility] Comment on above: Result Comment: [...] Ask your health care provider for a ewyy-va-jrsv plan for gradually returning to activities. ? [...] your friends, family, a trusted colleague, and reed worker about your injury, symptoms, and restrictions. Have them watch for any new or worsening problems. General instructions ? Take cqas-kdm-ojnbojb and prescription medicines only as told by your health care provider. ? Have someone stay with you for 24 hours after your head injury. This person should watch you for any changes in your symptoms and be ready to seek medical help. ? Keep all follow-up visits as told by your health care pr (more content not included)... Normal [facility] ED Patient Summaryon 023 ED Patient Summary [address] [address] Patient Discharge Instructions Person Information Name: AVILA VALENZUELA Age: 73 Years Arrival Date: 04/17/2023 20:26:34 Discharge Diagnosis: Closed head injury; Fall Primary Care Physician: RICHARD VARGAS MD Provider Information Primary Provider: Nancy Stern DO [place] Editor:None The exam and treatment you received in the Emergency Department were for an urgent problem and are not intended as complete care. It is important that you follow up with a doctor, nurse practitioner, or physician?s visitor services information assistant for ongoing care. If your symptoms [...] Follow-up Instructions: With: Address: When: RICHARD SAM [address] [place] [address] Holaira (1) In 3 days 04/20/2023 Comments: Follow-up [...] opioids can be used to help relieve cxfxiuvm-il-qhksvf pain and are often prescribed following a [...] ? If you (more content not included)... [facility] ED Traumaon 04-18-2023 ED Trauma [id number] 6#1.00TIFF [facility] Monitor Recordon 04-18-2023 Monitor Record [id number] 9#1.00TIFF [facility] Monitor Record [id number] 3#1.00TIFF Normal [facility] Monitor Record [id number] 9#1.00TIFF Normal [facility] RAD - Preliminary Cat Scan R eporton 04-18-2023 RAD - Preliminary Cat Scan Report [id number] 6#1.00TIFF Normal [facility] U Drug Screenon 04-18-2023 U Amph Scr Negative Invalid Interpretation Code [facility] Comment on above: Performed By: #### 2 206266 ####[facility] [address] [place] [address] U Cookie Scr Negative Invalid Interpretation Code [facility] Comment on above: Performed By: #### 2 207749 ####[facility] [address] [place] [address] U Benzodia Scr Negative Invalid Interpretation Code [facility] Comment on above: Performed By: #### 2 377055 ####[facility] [address] [place] [address] U Cannab Scr Negative Invalid Interpretation Code [facility] Comment on above: Performed By: #### 2 707058 ####[facility] [address] [place] [address] U Cocaine Scr Negative Invalid Interpretation Code [facility] Comment on above: Performed By: #### 2 702251 ####[facility] [address] [place] [address] U Opiate Scr Negative Invalid Interpretation Code [facility] Comment on above: Performed By: #### 2 785482 ####[facility] [address] [place] [address] U PCP Scr Negative Invalid Interpretation Code [facility] Comment on above: Performed By: #### 2 593636 ####[facility] [address] [place] [address] ABO/Rhon 04-17-2023 ABO/Rh Positive Invalid Interpretation Code [facility] Comment on above: Performed By: #### 1 4122707, 80599999, 6338839, 11433479 ####[facility] [address] [place] [address] ABSCon 04-17-2023 ABSC Gel Interp Negative Normal [facility] Comment on above: Performed By: #### 1 7601201, 04312760, 6991430, 94557415 ####[facility] [address] [place] [address] Auto Diffon 04-17-2023 Basophils/100 WBC (Bld) 1.2 % Normal 0.0-2.0 [facility] Comment on above: Order Comment: Order Added by Discern Expert. Performed By: #### 2 944622, 4355016, 8127690, 58059099, 56123449, 9032253, 9097742, 5992635, 8770901 ####[address] [address] Basophils/Leukocytes Auto (Bld) [Pure # fraction] 0.1 E9/L Normal 0.0-0.2 [facility] Comment on above: Order Comment: Order Added by Discern Expert. Performed By: #### 2 680086, 5079907, 7860892, 04756226, 31550299, 9911387, 9842561, 9819104, 0870434 ####[facility] [address] [place] [address] Eosinophils/100 WBC (Bld) 1.3 % Normal 0.0-8.0 [facility] Comment on above: Order Comment: Order Added by Discern Expert. Performed By: #### 2 274726, 0447353, 2999062, 76317355, 69575825, 5662671, 4565461, 1949049, 4571025 ####[place] [address] [place] [address] Eosinophils/Leukocytes Auto (Bld) [Pure # fraction] 0.1 E9/L Normal 0.0-0.5 [facility] Comment on above: Order Comment: Order Added by Discern Expert. Performed By: #### 2 778289, 4765818, 9947723, 89513757, 57460010, 1332830, 4394022, 0736640, 1815086 ####[place] [address] [place] [address] Lymphocytes/100 WBC (Bld) 23.6 % Normal 14.0-50.0 [facility] Comment on above: Order Comment: Order Added by Discern Expert. Performed By: #### 2 698297, 9931760, 9977836, 81542429, 89052685, 7286163, 3683156, 1087214, 0771449 ####[place] [address] [place] [address] Lymphocytes/Leukocytes Auto (Bld) [Pure # fraction] 1.8 E9/L Normal 1.0-4.0 [facility] Comment on above: Order Comment: Order Added by Jason Expert. Performed By: #### 2 958118, 8323905, 1790771, 66604134, 11066374, 0742045, 8915516, 2979651, 2061446 ####[place] [address] [place] [address] Monocytes/100 WBC (Bld) 10.1 % Normal 4.0-14.0 [facility] Comment on above: Order Comment: Order Added by Discern Expert. Performed By: #### 2 970401, 6478423, 0155595, 50985448, 28563606, 7205309, 7086263, 7952981, 3291540 ####[place] [address] [place] [address] Monocytes/Leukocytes Auto (Bld) [Pure # fraction] 0.8 E9/L Normal 0.2-1.0 [facility] Comment on above: Order Comment: Order Added by Discern Expert. Performed By: #### 2 839506, 8558661, 7856262, 67089123, 81990009, 6464844, 8316024, 4966473, 2513499 ####[place] [address] [place] [address] Neutrophils/100 WBC (Bld) 63.8 % Normal 36.0-75.0 [facility] Comment on above: Order Comment: Order Added by Discern Expert. Performed By: #### 2 250033, 4822339, 4926163, 73559846, 77483784, 4964072, 5054796, 0338384, 4664791 ####[facility] [address] [place] [address] Neutrophils/Leukocytes Auto (Bld) [Pure # fraction] 4.9 E9/L Normal 2.0-7.5 [facility] Comment on above: Order Comment: Order Added by Discern Expert. Performed By: #### 2 009835, 2440771, 4121871, 65614183, 76586827, 4539653, 5934760, 3406776, 0918939 ####[facility] [address] [place] [address] BLOOD BANKOrdered By: Karina Stafford on 04-17-2023 ABO/Rh Interp Positive Invalid Interpretation Code [facility] BB Subsection ABSC Gel Interp Negative (04/17/23 8:42 PM) Normal [facility] BB Subsection BMPon 04-17-2023 Anion gap [Moles/Vol] 14 mmol/L Normal 6-16 [facility] Comment on above: Performed By: #### 2 811260, 4841010, 4889092, 75346130, 05858191, 9012903, 1485227, 2471887, 6112221 ####[facility] [address] [place] [address] BUN/Creat Ratio 21 No Units High 10-20 [facility] Comment on above: Performed By: #### 2 891385, 6634696, 9036039, 06702519, 79171043, 8475310, 4503969, 2824343, 7772258 ####[facility] [address] [place] [address] Calcium [Mass/Vol] 9.6 mg/dL Normal 8.9-11.1 [facility] Comment on above: Performed By: #### 2 669331, 5643445, 3412396, 89504734, 61643428, 7152041, 5851349, 0356067, 7880912 ####[facility] [address] [place] [address] Chloride [Moles/Vol] 104 mmol/L Normal 101-111 [facility] Comment on above: Performed By: #### 2 300491, 5748670, 4445178, 71671928, 29170113, 3454280, 1365502, 0756418, 4496536 ####[facility] [address] [place] [address] CO2 [Moles/Vol] 28 mmol/L Normal 21-31 [facility] Comment on above: Performed By: #### 2 007959, 6964797, 0418767, 92542885, 20693476, 9274238, 9580811, 4096841, 7242105 ####[facility] [address] [place] [address] Creatinine [Mass/Vol] 1.7 mg/dL High 0.5-1.3 [facility] Comment on above: Performed By: #### 2 170797, 6727275, 3284315, 38627963, 04043228, 8571098, 7216354, 6211509, 3374379 ####[facility] [address] [place] [address] Glucose [Mass/Vol] 135 mg/dL Normal 55-199 [facility] Comment on above: Performed By: #### 2 924510, 7969448, 1949522, 27638702, 58155836, 1677683, 8030560, 6116293, 5370497 ####[facility] [address] [place] [address] Potassium [Moles/Vol] 3.7 mmol/L Normal 3.5-5.3 [facility] Comment on above: Performed By: #### 2 690905, 7470542, 1857105, 02193917, 72658640, 4008324, 2410233, 8390128, 6889610 ####[facility] [address] [place] [address] Sodium [Moles/Vol] 142 mmol/L Normal 135-145 [facility] Comment on above: Performed By: #### 2 712470, 6336488, 7813182, 98964191, 70929941, 9070783, 9631355, 3680807, 4933475 ####[facility] [address] [place] [address] Urea nitrogen [Mass/Vol] 36 mg/dL High 5-21 [facility] Comment on above: Performed By: #### 2 691204, 1289052, 2987184, 19948640, 67563027, 3877170, 5875085, 6735366, 1026952 ####[facility] [address] [place] [address] Blood Bank ID#on 04-17-2023 BBID# [id number] Invalid Interpretation Code [facility] Comment on above: Performed By: #### 1 6348198, 40258426, 0102459, 81870562 ####[facility] [address] [place] [address] CBC w/ Auto Diffon 3 Erythrocyte distribution width (RBC) [Ratio] 13.8 % Normal 10.9-14.2 [facility] Comment on above: Performed By: #### 2 658204, 6982099, 1368145, 21399592, 99277322, 9503746, 9013714, 3584121, 5865218 ####[facility] [address] [place] [address] Hematocrit (Bld) [Volume fraction] 31.5 % Low 34.0-46.0 [facility] Comment on above: Performed By: #### 2 127558, 1794218, 4399201, 89973588, 52703136, 2082986, 0796619, 1969030, 2849230 ####[facility] [address] [place] [address] Hemoglobin (Bld) [Mass/Vol] 10.1 g/dL Low 12.0-16.0 [facility] Comment on above: Performed By: #### 2 442760, 2233570, 9794287, 90307650, 63062411, 6780100, 7818793, 3405954, 8118409 ####[facility] [address] [place] [address] MCH (RBC) [Entitic mass] 29.4 pg Normal 27.0-34.0 [facility] Comment on above: Performed By: #### 2 154197, 4071772, 9883737, 63868237, 37964742, 8967537, 4028949, 1475763, 9662972 ####[address] [address] MCHC (RBC) [Mass/Vol] 32.1 g/dL Normal 31.4-36.0 [facility] Comment on above: Performed By: #### 2 497759, 3543555, 2532585, 24730275, 82593313, 4954873, 0010543, 7032119, 6516358 ####[address] [address] MCV (RBC) [Entitic vol] 91.4 fL Normal 80.0-100.0 [facility] Comment on above: Performed By: #### 2 784383, 6157850, 2197372, 54656698, 99766619, 9645841, 9298456, 0259733, 8397457 ####[address] [address] Platelet mean volume (Bld) [Entitic vol] 8.9 fL Normal 6.4-10.8 [facility] Comment on above: Performed By: #### 2 795344, 4269741, 3357112, 99085255, 94380544, 4633200, 5570387, 0173316, 8156736 ####[address] [address] Platelets (Bld) [#/Vol] 271.0 E9/L Normal 150.0-500.0 [facility] Comment on above: Performed By: #### 2 500988, 8089372, 9698139, 98865201, 26308776, 0870313, 5681502, 5664014, 2542618 ####[facility] [address] [place] [address] RBC (Bld) [#/Vol] 3.4 E12/L Low 4.3-5.9 [facility] Comment on above: Performed By: #### 2 311854, 4605431, 9699048, 10653929, 76458649, 0423789, 1307725, 7550847, 1974296 ####[facility] [address] [place] [address] WBC corrected for nucl RBC Auto (Bld) [#/Vol] 7.7 E9/L Normal 4.0-11.0 [facility] Comment on above: Performed By: #### 2 886177, 3072125, 4761354, 17802806, 40424455, 5463070, 5453876, 9889944, 9046494 ####[facility] [address] [place] [address] CHEMISTRYOrdered By: Autumn Renteria on 04-17-2023 U [...] 32.6 s Normal 25.1 - 36.5 second(s) [facility] Auto Coag Comment on above: Interpretive Data: [...] the same coagulation reagent and instrumentation as [facility]. Currently there are no coagulation studies available worldwide for children to 14 days, and no normal ranges. Heparin therapeutic range (represented by Anti-Factor Xa activity of 0.2 - 0.4 U/mL) corresponds to PTT of 56.6 - 109.0 sec. INR Coag (PPP) [Relative time] 1.2 {INR} Invalid Interpretation Code [facility] Auto Coag Comment on above: Interpretive Data: I NR results are specifically intended to assess patients stabilized on long-term Anticoagulation therapy suggested INR s Less Intensive Anticoagulation 2.0 3.0 Conventional Range 3.0 4.5 PT Coag (PPP) [Time] 13.1 s High 9.4 - 1 2.5 second(s) [facility] Auto Coag Comment on above: Interpretive Data: [...] the same coagulation reagent and instrumentation as [facility]. Currently there are no coagulation studies available worldwide for children to 14 days, and no normal ranges. Consent for Treatmenton 03-28 Consent for Treatment [id number] #1.00TIFF Normal [facility] Ethanolon 04-17-2023 Ethanol Lvl 83 mg/dL Abnormal <=7 [facility] Comment on above: Result Comment: Crit ical Result S_ETOH:83 Called to and read back by: TAI BARBA at: 04/17/2023 21:19:24 by:CADY RENTERIA Critical Result Verified by Repeat Analysis Performed By: #### 2 444846 ####[facility] [address] [place] [address] HEMATOLOGYOrdered By: SYSTEM SYSTEM on 04-17-2023 Basophils/100 [...] 04-17-2023 Albumin [Mass/Vol] 4.1 g/dL Normal 3.3-5.0 [facility] Comment on above: Performed By: #### 2 029578, 7513907, 4399622, 58428038, 79214060, 2280550, 3612473, 6299778, 4165275 ####[place] [address] [place] [address] Albumin/Globulin [Mass ratio] 1.2 {ratio} Normal 1.1-2.2 [facility] Comment on above: Performed By: #### 2 [id number], 1591836, 5617101, 64552248, 75744789, 4679768, 7689608, 3595102, 2056749 ####[address] [address] Alk Phos 68 Int._Unit/L Normal 21-[address] [facility] Comment on above: Performed By: #### 2 511788, 2915415, 9302872, 42188706, 34224130, 4618645, 7417655, 5835989, 4832931 ####[address] [address] ALT 14 Int._Unit/L Normal 6-[address] [facility] Comment on above: Performed By: #### 2 330316, 8902016, 9813252, 22052419, 99523116, 5651463, 9849197, 2952615, 1049188 ####[address] [address] AST 14 Int._Unit/L Normal 5-[address] [facility] Comment on above: Performed By: #### 2 326903, 8747795, 4122219, 04314755, 12718115, 5515150, 8193950, 8464170, 4369916 ####[address] [address] Bili Direct 0.2 mg/dL Normal 0.0-0.4 [facility] Comment on above: Performed By: #### 2 531584, 3824227, 1228836, 24671452, 33434107, 7367113, 8697646, 3569566, 1459464 ####[facility] [address] [place] [address] Bili Indirect 0.6 mg/dL Normal 0.1-0.9 [facility] Comment on above: Performed By: #### 2 679381, 4738001, 9164347, 29829758, 89261947, 2079068, 9886336, 7155371, 0997674 ####[facility] [address] [place] [address] Bili Total 0.8 mg/dL Normal 0.0-1.1 [facility] Comment on above: Performed By: #### 2 337088, 2116821, 4059099, 73356574, 18460296, 6453226, 7664977, 0144219, 9859331 ####[facility] [address] [place] [address] Globulin (S) [Mass/Vol] 3.4 g/dL Normal 1.4-4.0 [facility] Comment on above: Performed By: #### 2 672129, 1248705, 0629958, 81710601, 82315411, 5169404, 6901638, 6454657, 1257284 ####[facility] [address] [place] [address] Protein [Mass/Vol] 7.5 g/dL Normal 6.0-7.8 [facility] Comment on above: Performed By: #### 2 275512, 5576429, 6534557, 86117744, 05853258, 6396026, 2479989, 5774693, 9185424 ####[facility] [address] [place] [address] Lactic Acidon 04-17-2023 Lactic Acid Lvl 2.1 mmol/L Normal 0.5-2.2 [facility] Comment on above: Performed By: #### 2 176776, 3759629, 6278551, 80418319, 86350676, 9069013, 0324172, 1818710, 9188237 ####[address] [place] [address] Lipase Levelon 04-17-2023 Lipase Lvl 235 unit/L High 13-58 [facility] Comment on above: Performed By: #### 2 219549, 8552078, 0317349, 54919923, 49458815, 6097431, 8375700, 5565381, 9199871 ####[facility] [address] [place] [address] PT & PTTon 04-17-2023 aPTT Coag (PPP) [Time] 32.6 second(s) Normal 25.1-36.5 [facility] Comment on above: Result Comment: [...] the same coagulation reagent and instrumentation as [facility]. Currently there are no coagulation studies available worldwide for children to 14 days, and no normal ranges. Heparin therapeutic range (represented by Anti-Factor Xa activity of 0.2 - 0.4 U/mL) corresponds to PTT of 56.6 - 109.0 sec. Performed By: #### 2 922135, 3761759, 1363948, 59411051, 01455171, 8983673, 8639773, 7060995, 8202248 ####[facility] [address] [place] [address] INR Coag (PPP) [Relative time] 1.2 {INR} Invalid Interpretation Code [facility] Comment on above: Result Comment: INR results are specifically intended to assess patients stabilized on long-term Anticoagulation therapy suggested INR?s ?Less Intensive Anticoagulation? 2.0 ? 3.0 Conventional Range 3.0 ? 4.5 Performed By: #### 2 494272, 9299299, 5749605, 62306225, 23157954, 0460877, 9371519, 3312546, 5552230 ####[facility] [address] [place] [address] PT Coag (PPP) [Time] 13.1 second(s) High 9.4-12.5 [facility] Comment on above: Result Comment: [...] the same coagulation reagent and instrumentation as [facility]. Currently there are no coagulation studies available worldwide for children to 14 days, and no normal ranges. Performed By: #### 2 198194, 0004403, 5630006, 48199497, 79179018, 5039535, 3802707, 6104123, 5208860 ####[facility] [address] [place] [address] Pre-Arrival Noteon 3 Pre-Arrival Note Pre-Arrival Summary Name: , BEA Current Date: 04/17/2023 20:28:42 EST Gender: Female Date of : Age: 73 Pre-Arrival Type: EMS ETA: 04/17/2023 20:52:00 EST Primary Care Physician: Presenting Problem: Fall, Hit head Pre-Arrival User: Bernadine Littlejohn RN Referring Source: Location: [place] Completion Date/Time: 04/17/2023 20:22:00 [facility] Emergency Department Pre-Hospital Report Form Vital Signs: 107/54, 80HR, 97% RA Pre-Hospital Report: Fall, Hit head on table Treatment in Route: 2LAC Response to Treatment: Misc. Issues: Normal [facility] Troponinon 04-17-2023 Troponin 8.90 pg/mL Low 10.10-27.10 [facility] Comment on above: Result Comment: The 95% CI (Confidence Interval) PPV (Positive Predictive Value) for myocardial infarction in females is 38 pg/mL, in males 51 pg/mL. The results should be used in conjunction with clinical conditions of myocardial infarction. (Access High Sensitivity Troponin I Instructions For Use, [employer], November 2017) Performed By: #### 2 119450, 1951541, 2728050, 38798170, 78540635, 9076111, 5360354, 5722739, 3841511 ####[facility] [address] [place] [address] eGFRon 04-17-2023 eGFR 31 mL/min/1.73 m2 Low >=59 [facility] Comment on above: Order Comment: Order added by Discern Expert. Performed By: #### 2 263335, 1640171, 7344337, 87665501, 22638798, 5693372, 1885967, 7715168, 0257693 ####[facility] [address] [place] [address] GLYCOHEMOGLOBIN A1Con 2022 ADA RECOMMENDATION SEE BELOW Normal [facility] Comment on above: Result Comment: ADA RECOMMENDED LIMIT 4.0 - 6.0 ADA THERAPEUTIC TARGET < 7.0 ACTION SUGGESTED > 7.0 Performed By: #### A 1C #### [facility] [address] [place] [address] Dr. Vanessa Denis Glucose [Mass/Vol] 223 mg/dL Normal [facility] Comment on above: Performed By: #### A 1C #### [facility] [address] [place] [address] Dr. Vanessa Denis HbA1c (Bld) [Mass fraction] 9.4 % Critically high 4.5-6.2 [facility] Comment on above: Performed By: #### A 1C #### [facility] [address] [place] [address] Dr. Vanessa Denis PROF 14(COMP METB)on 023 Albumin [Mass/Vol] 3.4 g/dL Normal 3.4-5.0 [facility] Comment on above: Performed By: #### C MP #### [facility] [address] [place] [address] Dr. Vanessa Denis Albumin/Globulin [Mass ratio] 0.8 {ratio} Normal [facility] Comment on above: Performed By: #### C MP #### [facility] [address] [place] [address] Dr. Vanessa Denis ALP [Catalytic activity/Vol] 71 U/L Normal 46-116 [facility] Comment on above: Performed By: #### C MP #### [facility] [address] [place] [address] Dr. Vanessa Denis ALT [Catalytic activity/Vol] 25 U/L Normal 14-59 [facility] Comment on above: Performed By: #### C MP #### [facility] [address] [place] [address] Dr. Vanessa Denis Anion gap [Moles/Vol] 6.7 mmol/L Normal [facility] Comment on above: Performed By: #### C MP #### [facility] [address] [place] [address] Dr. Vanessa Denis AST [Catalytic activity/Vol] 19 U/L Normal 15-37 [facility] Comment on above: Performed By: #### C MP #### [facility] [address] [place] [address] Dr. Vanessa Denis Bilirubin [Mass/Vol] 0.9 mg/dL Normal 0.2-1.0 [facility] Comment on above: Performed By: #### C MP #### [facility] [address] [place] [address] Dr. Vanessa Denis Calcium [Mass/Vol] 9.5 mg/dL Normal 8.5-10.1 [facility] Comment on above: Performed By: #### C MP #### [facility] [address] [address] [address] Vanessa Denis Chloride [Moles/Vol] 102 mmol/L Normal 98-107 [facility] Comment on above: Performed By: #### C MP #### [facility] [address] [address] [address] Vanessa Denis CO2 [Moles/Vol] 35.2 mmol/L Critically high 21.0-32.0 [facility] Comment on above: Performed By: #### C MP #### [facility] [address] [place] [address] Dr. Vanessa Denis Creatinine [Mass/Vol] 1.23 mg/dL Critically high 0.55-1.02 [facility] Comment on above: Performed By: #### C MP #### [facility] [address] [place] [address] Dr. Vanessa Denis EGFR-AF ECUADOREAN 52 mL/min/1.73m2 Critically low >=60 [facility] Comment on above: Performed By: #### C MP #### [facility] [address] [place] [address] Dr. Vanessa Denis EGFR-NON AF ECUADOREAN 43 mL/min/1.73m2 Critically low >=60 [facility] Comment on above: Performed By: #### C MP #### [facility] [address] [address] [address] Vanessa Denis Globulin (S) [Mass/Vol] 4.1 g/dL Normal [facility] Comment on above: Performed By: #### C MP #### [facility] [address] [place] [address] Dr. Vanessa Denis Glucose [Mass/Vol] 267 mg/dL Critically high 74-106 [facility] Comment on above: Performed By: #### C MP #### [facility] [address] [place] [address] Dr. Vanessa Denis Potassium [Moles/Vol] 4.9 mmol/L Normal 3.5-5.1 [facility] Comment on above: Performed By: #### C MP #### [facility] [address] [address] [address] Vanessa Denis Protein [Mass/Vol] 7.5 g/dL Normal 6.4-8.2 [facility] Comment on above: Performed By: #### C MP #### [facility] [address] [address] [address] Vanessa Denis Sodium [Moles/Vol] 139 mmol/L Normal 136-145 [facility] Comment on above: Performed By: #### C MP #### [facility] [address] [address] [address] Vanessa Denis Urea nitrogen [Mass/Vol] 26.0 mg/dL Critically high 7.0-18.0 [facility] Comment on above: Performed By: #### C MP #### [facility] [address] [address] [address] Vanessa Denis Urea nitrogen/Creatinine [Mass ratio] 21.1 mg/mg Normal [facility] Comment on above: Performed By: #### C MP #### [facility] [address] [place] [address] Dr. Vanessa Denis CTA CHEST WO W [...] Date: 2022-05-30 14:23 Normal [facility] GLYCOHEMOGLOBIN A1Con 2022 ADA RECOMMENDATION SEE BELOW Normal [facility] Comment on above: Result Comment: ADA RECOMMENDED LIMIT 4.0 - 6.0 ADA THERAPEUTIC TARGET < 7.0 ACTION SUGGESTED > 7.0 Performed By: #### A 1C #### [facility] [address] [place] [address] Dr. Vanessa Denis Glucose [Mass/Vol] 203 mg/dL Normal [facility] Comment on above: Performed By: #### A 1C #### [facility] [address] [place] [address] Dr. Vanessa Denis HbA1c (Bld) [Mass fraction] 8.7 % Critically high 4.5-6.2 [facility] Comment on above: Performed By: #### A 1C #### [facility] [address] [place] [address] Dr. Vanessa Denis HEMOGRAM AND PLATELon 2022 Hematocrit (Bld) [Volume fraction] 45.4 % Normal 36.0-48.0 [facility] Comment on above: Performed By: #### H H #### [facility] [address] [place] [address] Dr. Vanessa Denis Hemoglobin (Bld) [Mass/Vol] 14.5 g/dL Normal 12.0-16.0 [facility] Comment on above: Performed By: #### H H #### [facility] [address] [place] [address] Dr. Vanessa Denis MCH (RBC) [Entitic mass] 29.0 pg Normal 26.7-34.0 [facility] Comment on above: Performed By: #### H H #### [facility] [address] [place] [address] Dr. Vanessa Denis MCHC (RBC) [Mass/Vol] 31.9 g/dL Normal 29.9-35.2 [facility] Comment on above: Performed By: #### H H #### [facility] [address] [address] [address] Vanessa Denis MCV (RBC) [Entitic vol] 90.8 fL Normal 81.0-99.0 [facility] Comment on above: Performed By: #### H H #### [facility] [address] [address] [address] Vanessa Denis PLT 164 103/ul Normal 150-450 [facility] Comment on above: Performed By: #### H H #### [facility] [address] [address] [address] Vanessa Denis RBC 5.00 106/ul Normal 4.20-5.40 [facility] Comment on above: Performed By: #### H H #### [facility] [address] [place] [address] Dr. Vanessa Denis WBC 7.6 103/ul Normal 4.0-11.0 [facility] Comment on above: Performed By: #### H H #### [facility] [address] [place] [address] Dr. Vanessa Denis LIPID PROFILEon 05-30-2022 CHOL-HDL RATIO NORM SEE BELOW Normal [facility] Comment on above: Result Comment: 3.3 - 4.4 LOW RISK 4.4 - 7.1 AVERAGE RISK 7.1 - 11.0 MODERATE RISK >11.0 HIGH RISK Performed By: #### L IPID, TSH #### [facility] [address] [place] [address] Dr. Vanessa Denis Cholesterol [Mass/Vol] 110 mg/dL Normal <=200 Th [facility] Comment on above: Performed By: #### L IPID, TSH #### [facility] [address] [address] [address] Vanessa Denis Cholesterol in HDL [Mass/Vol] 51 mg/dL Normal 40-60 [facility] Comment on above: Performed By: #### L IPID, TSH #### [facility] [address] [place] [address] Dr. Vanessa Denis Cholesterol in LDL [Mass/Vol] 39.4 mg/dL Normal [facility] Comment on above: Performed By: #### L IPID, TSH #### [facility] [address] [address] [address] Vanessa Denis Cholesterol.total/Chol esterol in HDL [Mass ratio] 2.2 {ratio} Normal [facility] Comment on above: Performed By: #### L IPID, TSH #### [facility] [address] [address] [address] Vanessa Denis HDL NORMAL > or = 60 mg/dl - LOW CARDIOVASCULAR RISK <40 mg/dl - HIGH CARDIOVASCULAR RISK Normal [facility] Comment on above: Performed By: #### L IPID, TSH #### [facility] [address] [address] [address] Vanessa Denis LDL CALC NORMAL SEE BELOW Normal [facility] Comment on above: Result Comment: <100 mg/dl OPTIMAL 100 - 129 mg/dl NEAR OR ABOVE OPTIMAL 130 - 159 mg/dl BORDERLINE HIGH 160 - 189 mg/dl HIGH >190 mg/dl VERY HIGH Performed By: #### L IPID, TSH #### [facility] [address] [address] [address] Vanessa Denis Triglyceride [Mass/Vol] 98 mg/dL Normal <=150 [facility] Comment on above: Performed By: #### L IPID, TSH #### [facility] [address] [address] [address] Vanessa Denis VLDL CALC 19.6 mg/dL Normal [facility] Comment on above: Performed By: #### L IPID, TSH #### [facility] [address] [address] [address] Vanessa Denis PROF 14(COMP METB)on 023 Albumin [Mass/Vol] 3.4 g/dL Normal 3.4-5.0 [facility] Comment on above: Performed By: #### C MP #### [facility] [address] [address] [address] Vanessa Denis Albumin/Globulin [Mass ratio] 0.9 {ratio} Normal [facility] Comment on above: Performed By: #### C MP #### [facility] [address] [place] [address] Dr. Vanessa Denis ALP [Catalytic activity/Vol] 68 U/L Normal 46-116 [facility] Comment on above: Performed By: #### C MP #### [facility] [address] [place] [address] Dr. Vanessa Denis ALT [Catalytic activity/Vol] 23 U/L Normal 14-59 [facility] Comment on above: Performed By: #### C MP #### [facility] [address] [place] [address] Dr. Vanessa Denis Anion gap [Moles/Vol] 10.1 mmol/L Normal Th [facility] Comment on above: Performed By: #### C MP #### [facility] [address] [place] [address] Dr. Vanessa Denis AST [Catalytic activity/Vol] 21 U/L Normal 15-37 [facility] Comment on above: Performed By: #### C MP #### [facility] [address] [place] [address] Dr. Vanessa Denis Bilirubin [Mass/Vol] 0.9 mg/dL Normal 0.2-1.0 [facility] Comment on above: Performed By: #### C MP #### [facility] [address] [place] [address] Dr. Vanessa Denis Calcium [Mass/Vol] 9.2 mg/dL Normal 8.5-10.1 [facility] Comment on above: Performed By: #### C MP #### [facility] [address] [place] [address] Dr. Vanessa Denis Chloride [Moles/Vol] 101 mmol/L Normal 98-107 [facility] Comment on above: Performed By: #### C MP #### [facility] [address] [place] [address] Dr. Vanessa Denis CO2 [Moles/Vol] 31.5 mmol/L Normal 21.0-32.0 [facility] Comment on above: Performed By: #### C MP #### [facility] [address] [place] [address] Dr. Vanessa Denis Creatinine [Mass/Vol] 1.15 mg/dL Critically high 0.55-1.02 [facility] Comment on above: Performed By: #### C MP #### [facility] [address] [address] [address] Vanessa Denis EGFR-AF ECUADOREAN 56 mL/min/1.73m2 Critically low >=60 [facility] Comment on above: Performed By: #### C MP #### [facility] [address] [address] [address] Vanessa Denis EGFR-NON AF ECUADOREAN 46 mL/min/1.73m2 Critically low >=60 [facility] Comment on above: Performed By: #### C MP #### [facility] [address] [place] [address] Dr. Vanessa Denis Globulin (S) [Mass/Vol] 4.0 g/dL Normal [facility] Comment on above: Performed By: #### C MP #### [facility] [address] [address] [address] Vanessa Denis Glucose [Mass/Vol] 254 mg/dL Critically high 74-106 [facility] Comment on above: Performed By: #### C MP #### [facility] [address] [place] [address] Dr. Vanessa Denis Potassium [Moles/Vol] 4.6 mmol/L Normal 3.5-5.1 [facility] Comment on above: Performed By: #### C MP #### [facility] [address] [address] [address] Vanessa Denis Protein [Mass/Vol] 7.4 g/dL Normal 6.4-8.2 [facility] Comment on above: Performed By: #### C MP #### [facility] [address] [place] [address] Dr. Vanessa Denis Sodium [Moles/Vol] 138 mmol/L Normal 136-145 [facility] Comment on above: Performed By: #### C MP #### [facility] [address] [address] [address] Vanessa Denis Urea nitrogen [Mass/Vol] 24.0 mg/dL Critically high 7.0-18.0 [facility] Comment on above: Performed By: #### C MP #### [facility] [address] [place] [address] Dr. Vanessa Denis Urea nitrogen/Creatinine [Mass ratio] 20.9 mg/mg Normal [facility] Comment on above: Performed By: #### C MP #### [facility] [address] [place] [address] Dr. Vanessa Denis TSHon 05-30-2022 TSH 2.067 uIU/mL Normal 0.358-3.740 [facility] Comment on above: Performed By: #### L IPID, TSH #### [facility] [address] [place] [address] Dr. Vanessa Denis Vital Signs Date Time Vital Sign Value Performing Clinician Facility 06-24-2023 13:52-0500 Blood Pressure Location Doug FERNANDEZ [facility] 06-24-2023 13:52-0500 Diastolic blood pressure 78 mm[Hg] Doug FERNANDEZ [facility] 06-24-2023 13:52-0500 Heart rate 68 /min Doug SORTOL [facility] 06-24-2023 13:52-0500 Respiratory rate 16 /min Doug FERNANDEZ [facility] 06-24-2023 13:52-0500 Systolic blood pressure 110 mm[Hg] Doug SORTOL [facility] 06-09-2023 11:52-0500 Body height 152.4 cm Dg Proctor MD Work Phone: [facility] 06-09-2023 11:52-0500 Body mass index (BMI) [Ratio] 32.42 kg/m2 Dg Proctor MD Work Phone: [facility] 06-09-2023 11:52-0500 Body weight 75.3 kg Dg Proctor MD Work Phone: [facility] 04-18-2023 00:39-0500 Diastolic blood pressure 95 mm[Hg] [facility] 04-18-2023 00:39-0500 Heart rate 74 /min [facility] 04-18-2023 00:39-0500 Mean blood pressure 117 mm[Hg] [facility] 04-18-2023 00:39-0500 Respiratory rate 22 /min [facility] 04-18-2023 00:39-0500 SaO2% (BldA) [Mass fraction] 97 % [facility] 04-18-2023 00:39-0500 Systolic blood pressure 161 mm[Hg] [facility] 04-17-2023 23:43-0500 Diastolic blood pressure 71 mm[Hg] [facility] 04-17-2023 23:43-0500 Heart rate 63 /min [facility] 04-17-2023 23:43-0500 Mean blood pressure 98 mm[Hg] [facility] 04-17-2023 23:43-0500 Respiratory rate 15 /min [facility] 04-17-2023 23:43-0500 SaO2% (BldA) [Mass fraction] 96 % [facility] 04-17-2023 23:43-0500 Systolic blood pressure 151 mm[Hg] [facility] 04-17-2023 23:23-0500 Body temperature 97.88 [degF] [facility] 04-17-2023 23:23-0500 Diastolic blood pressure 82 mm[Hg] [facility] 04-17-2023 23:23-0500 Heart rate 68 /min [facility] 04-17-2023 23:23-0500 Mean blood pressure 99 mm[Hg] [facility] 04-17-2023 23:23-0500 Respiratory rate 20 /min [facility] 04-17-2023 23:23-0500 SaO2% (BldA) [Mass fraction] 94 % [facility] 04-17-2023 23:23-0500 Systolic blood pressure 134 mm[Hg] [facility] 04-17-2023 22:39-0500 Respiratory rate 18 /min [facility] 04-17-2023 21:50-0500 Respiratory rate 18 /min [facility] 04-17-2023 20:50-0500 Body temperature 98.06 [degF] [facility] 04-17-2023 20:50-0500 Heart rate 72 /min [facility] 04-17-2023 20:50-0500 Respiratory rate 18 /min [facility] 04-17-2023 20:29-0500 Body temperature 98.06 [degF] [facility] 04-17-2023 20:29-0500 Heart rate 76 /min a[facility] 02-23-2023 13:40-0400 Body height 152.4 cm Nicolás Orlando Other [employer] Other 02-23-2023 13:40-0400 Body mass index (BMI) [Ratio] 34.72 kg/m2 Nicolás Orlando Other [employer] Other 02-23-2023 13:40-0400 Body temperature 96.8 [degF] Nicolás Orlando Other [employer] Other 02-23-2023 13:40-0400 Body weight 80.65 kg Nicolás Orlando Other [employer] Other 02-23-2023 13:40-0400 Diastolic blood pressure 82 mm[Hg] Nicolás Orlando Other [employer] Other 02-23-2023 13:40-0400 Respiratory rate 20 /min Nicolás Orlando Other [employer] Other 02-23-2023 13:40-0400 SaO2% (BldA) [Mass fraction] 99 % Nicolás Orlando Other [employer] Other 02-23-2023 13:40-0400 Systolic blood pressure 132 mm[Hg] Nicolás Orlando Other [employer] Other 12-31-2022 09:00-0400 Body height 152.4 cm Nicolás Orlando Other [employer] Other 12-31-2022 09:00-0400 Body mass index (BMI) [Ratio] 32.14 kg/m2 Nicolás Orlando Other [employer] Other 12-31-2022 09:00-0400 Body temperature 96.3 [degF] Nicolás Orlando Other [employer] Other 12-31-2022 09:00-0400 Body weight 74.66 kg Nicolás Orlando Other [employer] Other 12-31-2022 09:00-0400 Diastolic blood pressure 56 mm[Hg] Nicolás Orlando Other [facility] Other 12-31-2022 09:00-0400 Respiratory rate 20 /min Nicolás Orlando Other [facility] Other 12-31-2022 09:00-0400 SaO2% (BldA) [Mass fraction] 98 % Nicolás Orlando Other [facility] Other 12-31-2022 09:00-0400 Systolic blood pressure 91 mm[Hg] Nicolás Orlando Other [facility] Other Encounters Encounter Date Encounter Type Care Provider Facility Start: 10-13-2023 ambulatory KD OZUNA Facility:[facility] Start: 06-30-2023 End: 07-01-2023 ambulatory MD NICOLÁS [...] 05-21-2023 End: 05-21-2023 ambulatory Nicolás Orlando Other [facility] Other Start: 05-21-2023 Office outpatient vi sit 25 minutes Nicolás Orlando [facility] Start: 04-17-2023 End: 04-18-2023 Emergency department patient visit Nancy Stern Facility:[facility] Start: 04-17-2023 End: 04-18-2023 Emergency department patient visit Nancy Stern [facility] Start: 04-08-2023 End: 04-08-2023 ambulatory Nicolás Orlando Other [facility] Start: 04-08-2023 Telephone encounter Nicolás Orlando [facility] Start: 02-27-2023 ambulatory Nancy Stern Facility :[facility] Start: 02-23-2023 End: 02-23-2023 ambulatory Nicolás Orlando Other [facility] Start: 02-23-2023 Office outpatient vi sit 25 minutes Nicolás Orlando [facility] Start: 12-31-2022 End: 12-31-2022 ambulatory Nicolás Orlando Other [facility] Start: 12-31-2022 Office outpatient ne w 45 minutes Nicolás Orlando [facility] Start: 08-13-2022 End: 08-13-2022 ambulatory DARRION SHAMMO Facility:[facility] Start: 08-11-2022 End: 08-11-2022 ambulatory DARRION SHAMMO Facility:[facility] Start: 05-30-2022 End: 05-31-2022 ambulatory DARRION SHAMMO Facility:[facility] Start: 05-28-2022 End: 05-28-[address] JENIFER CASTILLO Facility:[facility] Start: 07-08-2021 End: 02-03-2022 ambulatory [place] Procedures Date Procedure Procedure Detail Performing Clinician [...] NEUR [address] [place] [address] Dg Proctor MD [address] [facility] [address] [place] [address] [facility] Start: 1950 Medicare Annual Well ness (AWV) Medicare Annual Wellness (AWV) [facility] Start: 1950 Screening for malign ant neoplasm of colon [facility] Immunizations Immunization Date Immunization Notes Care Provider Fa cili 02-19-2023 influenza virus vaccine, unspecified formulation Doug FERNANDEZ [facility] [place] 02-06-2022 SARS-CoV-2 (COVID-19 ) [id number] Doug FERNANDEZ [facility] [place] 05-06-2021 SARS-CoV-2 (COVID-19 ) mRNA BNT-162b2 vax Doug FERNANDEZ [facility] [place] 07-06-2020 SARS-CoV-2 (COVID-19 ) Ad26 vaccine, recombinant Doug FERNANDEZ [facility] [place] Payers Date Payer Category Payer Medicaid MEDICAID [facility] [id number] 2021-Present [phone] [address] [place] [address] Medicaid [id number] 2020 Private Health Insurance [id number] 2013 Medicare MEDICARE MEDICAR E PART B [id number] 2013-[place] [address] [address] Medicare [id number] 1959 Medicaid [id number] 1959 Medicare [id number] 1948 Unknown [id number] 93 1948 Unknown [id number] 2.16.840.1.247989.3.579.2.5 93 1948 Unknown [id number] 2.16.840.1.137443.3.579.2.5 93 1948 Unknown [id number] 2.16.840.1.597433.3.579.2.5 93 1948 Unknown [id number] 2.16.840.1.949307.3.579.2.5 93 1948 Unknown [id number] 2.16.840.1.447081.3.579.2.1 259 1948 Unknown [id number] 2.16.840.1.497379.3.579.2.7 27 1948 Unknown [id number] 2.16.840.1.264237.3.579.2.7 27 1948 Unknown [id number] 2.16.840.1.229843.3.579.2.7 27 1948 Unknown [id number] 2.16.840.1.486898.3.579.2.7 27 1948 Unknown [id number] [id number] 27 Social History Date Type Detail Facility Unknown if ever smoked [facility] Other Sex Assigned At [facility] Start: 07-10-2020 End: 06-24-2023 Tobacco smoking status Ex-smoker (finding) [facility] Tobacco smoking status [facility] Tobacco smoking consumption unknown [facility] Start: 1950 Sex Assigned At Not on file N [facility] Tobacco smoking status Never [facility] [place] Functional Status Date Assessment Result Facility 06-24-2023 Functional Status N/A [facility] [place] 04-17-2023 Functional Status N/A [facility] Clinical Notes 12-31-2022 to 06-24-2023 Dg Proctor [...] mg= 1 tab(s), Oral, Daily Vitamin D3, 34015 unit(s), Oral, qWeek Zoloft 25 mg Tab, [...] virus vaccine, inactivated 02/19/2023 Recorded SARS-CoV-2 (COVID-19) [id number].[id number] 02/06/2022 Recorded SARS-CoV-2 (COVID-19) mRNA BNT-162b2 vax (more content not included)... [facility] Comment on above: Result Comment: Elec tronically Signed By: REBECCA KILLIAN, Doug Dominique\Date and Time Signed: 06/24/23 14:18 EST 06-09-2023 History of Present illness Narrative Associated Problem(s): Polyneuropathy TSH + fT4. Emphasized good A1c control. Associated Problem(s): Sequelae of cerebral infarction Echo c bubble study. ([place] or [place]). US carotids ([facility]). (Continue ASA.) Images from the original note were not included. Outpatient Progress Note Prev Appt: Visit date not found Chief Complaint Patient presents with Memory Loss Assessment and Plan - Sequelae of cerebral infarction Echo c bubble study. ([place] or [place]). US carotids ([facility]). (Continue ASA.) Polyneuropathy TSH [...] DM. Onset Semeiology Imaging US carotids (03/2020, [place]) - < 50% B CT head (12/2019, [place]) - neg Testing Surgery Failed Dx PN [...] mouth in the morning. D3-50 1.25 MG (44262 UT) capsule ferrous sulfate 325 (65 Fe) [...] as of 06/09/2023. documented in this encounter [facility] 05-21-2023 Evaluation note Encounter Date Diagnosis Assessment [...] of any breach, fraud, or malicious third green party actors and no personal patient information was compromised. [facility] Other 12-23-2023 Hospital Discharge instructions Patient Education [...] Ask your health care provider for a lwhu-[id number] plan for gradually returning to activities. Ask [...] your friends, family, a trusted colleague, and reed worker about your injury, symptoms, and restrictions. Have them watch for any new or worsening problems. General instructions Take qyxc-bgs-vwhunwm and prescription medicines only as told by [...] provider. Document Revised: 02/24/2020 Document Reviewed: 02/24/2020 [employer] Patient Education 2022 [employer]. Follow Up Care 04/17/2023 20:26:54 With:RICHARD VARGAS Address: [address] [place] [address]- Business (1) When:04/20/2023 Comments:Follow-up with your primary care provider in 3 to 5 days. If symptoms worsen, do not improve, or new symptoms arise please report back to emergency department for further evaluation. [facility]12-22-2023 Evaluation + Plan noteExtracted from: Title:ED Note [...] Date:06/30/2023 10:00:00 AM Scheduled Provider:KEN OZUNA PA-C Location:[facility] Appointment Type:URO Office Visit [facility]10-30-2023 Evaluation note* Encounter Date Diagnosis Assessment Notes [...] recent gout flare. Continue monitor without medications. [facility] Other 09-06-2023 Evaluation note* Encounter Date Diagnosis [...] We will check also for paraproteinemia work-up. [facility] Other Evaluation + Plan note Future Appointments Appointment Date:06/30/2023 10:00:00 AM Scheduled Provider:KEN OZUNA PA-C Location:[facility] Appointment Type:URO Office Visit [facility] [place] Evaluation noteNo InformationNort Melinta Other Evaluation note* Diagnosis Sequelae of cerebral [...] TONSILLECTOMY AND ADENOIDECTOMY Hospitalization History SEE ABOVE [facility] Other History general Narrative - Reported* Type [...] TONSILLECTOMY AND ADENOIDECTOMY Hospitalization History SEE ABOVE [facility] Other Hospital course Narrative No data available for this section [facility] No data available for this section [facility] [place] Progress note No data available for this section [facility] Summary Purpose Family History No [...] section and content) DATE CREATED AUTHOR 02/03/2022 [place] DATE CREATED AUTHOR AUTHOR'S ORGANIZ ATION 08/22/2022 [facility] DATE CREATED AUTHOR AUTHOR'S ORGANIZ ATION 06/10/2023 [facility] EPIC DATE CREATED AUTHOR AUTHOR'S ORGANIZ ATION 07/04/2023 [facility] REASON FOR VISIT (unrecogniz ed section and content) Reason Comments Memory Loss Patient Care team informatio n (unrecognized section and content) 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 [employer] [facility]. provides no warranty or guarantee of the accuracy or completeness of information in this document.
== END 2023-07-15 10:37 | disposition home or self-care (01) ==
LOC: US 10:36
PROVIDERS: PCP Nurse Practitioner Primary Care; Visit Provider Physician Assistant
DX: N13.30 Unspecified hydronephrosis (principal); N28.1 Cyst of kidney, acquired
CPT/HCPCS: 76775

== ENCOUNTER 2023-08-03 13:37 | Outpatient (OUT) | payer MEDICARE, MEDICAID, SELFPAY | END 2023-08-03 13:38 | disposition home or self-care (01) | LOC: PST 13:37 | PROVIDERS: PCP Nurse Practitioner Primary Care; Visit Provider Surgery | DX: Z01.818 Encounter for other preprocedural examination (principal); Z12.11 Encounter for screening for malignant neoplasm of colon ==

== ENCOUNTER 2023-09-11 02:22 | Outpatient (REF) | payer MEDICARE, MEDICAID, SELFPAY ==
--- OUTSIDE RECORDS SUMMARY | 2023-09-11 02:27 | XMS_ITS | CCD ---
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 Name Role Phone SHAMMO, DARRION Primary Care Unavailable SHAMMO, DARRION Admitting Unavailable SHAMMO, DARRION Attending Unavailable AYDY, DR TWYLA Mensah Consulting Unavailable SHAMMO, DARRION [...] Perry Unavailable RICHARD VARGAS Primary Care Physician Unavailable Primary Care Provider Unavailnicky Atkins MD, Eduardo Mckenna Primary Care Provider SHAMMO, DARRION GEE Primary Care Physician Nancy Stern Attending Unavailable Doug FERNANDEZ Attending Unavailable FRANDY ROLLINS Referring Unavailable SHAMMO, DARRION Primary Care Unavailable KEN OZUNA Attending Unavailable SHAMMO, DARRION Primary Care Unavailable MD NICOLÁS PERRY Referring Unavailable KEN OZUNA Attending Unavailable SHAMMO, DARRION Primary Care Unavailable DG PROCTOR Attending Unavailable DG PROCTOR Attending Unavailable Medications Current Medications Medication Drug Class(es) Dates Sig (Normalized) Sig (Original) 0.5 ML tirzepatide 10 MG/ML Auto-Injector [Ana] (3 sources) Start: 06-10-2023 inject 5 mg [...] as needed Orally every 4 hrs Active [id number] actuat albuterol 0.09 mg/actuat metered dose [...] Vitamin D Start: 05-28-2023 D3-50 1.25 MG (16344 UT) capsule ergocalciferol 1.25 mg oral capsule (4 sources) Provitamin D2 Compound take 1 capsule by mouth every week Vitamin D (Ergocalcifero l) 1.25 MG (66276 UT) 1 capsule Orally ONCE A WEEK [...] Vitamin D3 (2 sources) Start: 07-10-2020 take 54537 [IU] by mouth every week Vitamin D3 [...] Osteoporosis 06-10-2023 Chronic Other aftercare (1 source) 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 drugs; Translations: [[facility] USE ORAL HYPOGLYCEMIC DX] Onset: 3 Episodic Other aftercare (1 source) Other mcfp (current) drug therapy; Translations: [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 CURRENT DRUG THERAPY] Onset: 3 Episodic Other [...] Test Name Value Interpretation Reference Range Facility RAD - Ultrasound Reporton RAD - Ultrasound Report [id number] #1.00TIFF Normal [facility] Lab Reportson 07-03-2023 Lab Reports [id number] 5#1.00TIFF [facility] Lab Reports [id number] 1#1.00TIFF Normal [facility] Physician Referralon 024 Physician Referral [id number] 4#1.00TIFF Normal [facility] RAD - CT Reporton 07-03-2023 RAD - CT Report [id number] 3#1.00TIFF Normal [facility] RAD - Ultrasound Reporton RAD - Ultrasound Report [id number] 0#1.00TIFF Normal [facility] Screenson 07-03-2023 Screens [id number] #1.00TIFF Normal [facility] Chcf Recordson 06-30 Chcf Records [id number] #1.00TIFF [facility] Ambulatory Visit Summaryon 0 06-30-2023 Ambulatory Visit Summary AVILA VALENZUELA :1950 Visit Date:06/30/2023 Ambulatory Visit Instructions Your Diagnosis Mixed incontinence urge and stress Bilateral renal cysts Hydronephrosis, right BMI 34.0-34.9,adult Your Care Team Attending Physician - LAITH YI, KEN Palacios Primary Care Physician - DARRION ARMSTRONG CNP Referring Physician - ORLANDO KILLIAN, NICOLÁS This [...] Hypothyroidism Lymphed (more content not included)... Normal [facility] Patient Educationon 06-30-19 Patient Education Nutrition [...] numbers. This can be done either in [place]ian ([place] or metric measurements. Note that charts and online BMI calculators are available to help you find your BMI quickly and easily without having to do these calculations yourself. To calculate your BMI in [place]ian ([place] measurements: 1. Measure your weight in [...] for Disease Control and Prevention: www.cdc.gov ? [place] Heart Association: www.heart.org ? National Heart, Lung, and Blood Lawtell: www.nhlbi.nih.gov Summary ? Body mass index (BMI) is a number that is calculated from a person's weight and height. ? BMI may help estimate how much of a person's weight is composed of fat. BMI can help identify those who may be at higher risk for certain medical problems. ? BMI can be measured using Slovenian measurements or metric measurements. ? BMI charts are used to identify whether you are underweight, normal weight, overweight, or obese. This information is not intended to replace advice given to you by your health care provider. Make sure you discuss any questions you have with your health care provider. Document Revised: 01/04/2020 Document Reviewed: 11/11/2019 [employer] Patient Education ? 2022 [employer]. Nokori [facility] Urology Office/Clinic Noteon 06-30-2023 Urology Office/Clinic Note [...] lowest daily dose and slowly titrate up D9siphm as pt tolerates. I explained the most [...] ls of procedure prior to scheduling. Ordered: 09896 Measure Post Void residual urine and/or bladder capacity by US- non-imaging E&M of Est. Patient High 40-54 Min 90914 2. Bilateral renal cysts (N28.1: Cyst of kidney, acquired) MAURA Dec 2022 tiny, simple -no additional workup needed Ordered: E&M of Est. Patient High 40-54 Min 92238 US Renal 3. Hydronephrosis, right (N13.30: Unspecified [...] E&M of Est. Patient High 40-54 Min 99950 US Renal 4. BMI 34.0-34.9,adult (Z68.34: Body mass index [BMI] 34.0-34.9, adult) healthy diet encouraged Ordered: E&M of Est. Patient High 40-54 Min 18721 Orders: Body Mass Index (BMI) documented 3008F [...] Urnls Dip Stick Auto w/o Microscopy POC 99444 Total time spent reviewing previous notes/results/director of accounts payable al documents, prepar (more content not included)... Normal [facility] Comment on above: Result Comment: Elec tronically Signed By: KEN OZUNA PA-C\.chin\Date and Time Signed: 06/30/23 12:51 EST Consent for Procedure/Surger yon 06-26-2023 Consent for Procedure/Surgery [id number] #1.00TIFF Normal [facility] Ambulatory Visit Summaryon 0 06-24-2023 Ambulatory Visit Summary AVILA VALENZUELA :1950 Visit Date:06/24/2023 Ambulatory Visit Instructions Your Care Team Attending Physician - REBECCA KILLIAN, Doug Calvillo Primary Care Physician - PATTI CAREY, DARRION FLYNN Referring Physician - FRANDY ROLLINS MD This [...] KEN OZUNA PA-C Where: [facility] Facesheeton 06-24-2023 Facesheet [id number] 9#1.00TIFF [facility] Physician Referralon 024 Physician Referral [id number] #1.00TIFF [facility] ABO/Rh History Checkon 04-18 ABO/Rh History Check Patient discharged prior Normal [facility] Comment on above: Performed By: #### 1 [id number], [id number], [id number], [id number] ####[facility] [address] [place] [address] CT Head or Brain w/o Contras ton [...] Technologist: QUINCY Technical Comments Contrast: None Normal [facility] CT Spine Cervical w/o Contra ston [...] V. Transcribed by: GREG Technologist: QUINCY Normal [facility] Discharge Instructionson Discharge Instructions [id number] 8#1.00TIFF Normal [facility] ED Clinical Summaryon 2022 ED Clinical Summary [place] [address] ED Clinical Summary Person Information Name: AVILA VALENZUELA [place] Age: 73 Years : 1950 Sex: Female Language: Slovenian PCP: SAM KILLIAN, RICHARD Yu Marital Status: [...] 04/18/2023 00:43:24 04/18/2023 00:43:24 04/18/2023 00:43:24 ADDRESS: [address] [place] [address] [place] [address] [id number] PHYS DOC NOTES: MEDICAL INFORMATION: Prescriptions Given: [...] Follow up: With: Address: When: RICHARD VARGAS [address] [place] [address] (1) In 3 days 04/20/2023 Comments: Follow-up with your primary care provider in 3 to 5 days. If symptoms worsen, do not improve, or new symptoms arise please report back to emergency department for further evaluation. DIAGNOSIS: Closed head injury; Fall Normal [facility] ED Note-Physicianon 04-18-20 ED Note-Physician Basic Information Time Seen: Nate YI, Royal Mcclendon 04/17/2023 20:31 Chief Complaint Pt arrrives [facility] for a fall. Pt states she hit [...] and Complexity of Problems Differential Diagnosis: [] [facility] Data External documents reviewed: [] My [...] RICHARD VARGAS In 3 days 04/20/2023 EST [address] [place] [address]- [facility] (1) Additional Instructions: Follow-up with your primary care provider in 3 to 5 days. If symptoms worsen, do not improve, or new symptoms arise please report back to emergency department for further evaluation. Patient Education Head Injury, Adult Attestation Patient seen (more content not included)... Normal [facility] Comment on above: Result Comment: Elec [...] Ask your health care provider for a waod-dl-twyq plan for gradually returning to activities. ? [...] your friends, family, a trusted colleague, and social work associate about your injury, symptoms, and restrictions. Have them watch for any new or worsening problems. General instructions ? Take atcg-euf-akjdijv and prescription medicines only as told by your health care provider. ? Have someone stay with you for 24 hours after your head injury. This person should watch you for any changes in your symptoms and be ready to seek medical help. ? Keep all follow-up visits as told by your health care pr (more content not included)... Normal [facility] ED Patient Summaryon 023 ED Patient Summary [place] [id number] Patient Discharge Instructions Person Information Name: AVILA VALENZUELA Age: 73 Years Arrival Date: 04/17/2023 20:26:34 Discharge Diagnosis: Closed head injury; Fall Primary Care Physician: RICHARD VARGAS MD Provider Information Primary Provider: Nancy Stern DO Advanced Creative Technologist:None The exam and treatment you received in the Emergency Department were for an urgent problem and are not intended as complete care. It is important that you follow up with a doctor, nurse practitioner, or physician?s visitor services assistant for ongoing care. If your symptoms [...] Follow-up Instructions: With: Address: When: RICHARD VARGAS [address] [place] [id number] [facility] (5) In 3 days 04/20/2023 Comments: Follow-up with [...] opioids can be used to help relieve xcrnzdas-ot-hgidyo pain and are often prescribed following a [...] If you (more content not included)... Normal [facility] ED Traumaon 04-18-2023 ED Trauma [id number] 6#1.00TIFF [facility] Monitor Recordon 04-18-2023 Monitor Record [id number] 9#1.00TIFF Normal [facility] Monitor Record [id number] 3#1.00TIFF Normal [facility] Monitor Record [id number] 9#1.00TIFF Normal [facility] RAD - Preliminary Cat Scan R eporton 04-18-2023 RAD - Preliminary Cat Scan Report [id number] 6#1.00TIFF Normal [facility] U Drug Screenon 04-18-2023 U Amph Scr Negative Invalid Interpretation Code [facility] Comment on above: Performed By: #### 2 [id number] #### [facility] [address] [place] [address] U Cookie Scr Negative Invalid Interpretation Code [facility] Comment on above: Performed By: #### 2 [id number] #### [facility] [address] [place] [address] U Benzodia Scr Negative Invalid Interpretation Code [facility] Comment on above: Performed By: #### 2 988929 #### [facility] [address] [place] [address] U Cannab Scr Negative Invalid Interpretation Code [facility] Comment on above: Performed By: #### 2 926024 #### [facility] [address] [place] [address] U Cocaine Scr Negative Invalid Interpretation Code [facility] Comment on above: Performed By: #### 2 [id number] #### [facility] [address] [place] [address] U Opiate Scr Negative Invalid Interpretation Code [facility] Comment on above: Performed By: #### 2 438449 #### [facility] [address] [place] [address] U PCP Scr Negative Invalid Interpretation Code [facility] Comment on above: Performed By: #### 2 636274 #### [facility] [address] [place] [address] ABO/Rhon 04-17-2023 ABO/Rh Positive Invalid Interpretation Code [facility] Comment on above: Performed By: #### 1 [id number], [id number], [id number], [id number] ####[facility] [address] [place] [address] ABSCon 04-17-2023 ABSC Gel Interp Negative Normal [facility] Comment on above: Performed By: #### 1 8693735, [id number], [id number], [id number] ####[facility] [address] [place] [address] Auto Diffon 04-17-2023 Basophils/100 WBC (Bld) 1.2 % Normal 0.0-2.0 [facility] Comment on above: Order Comment: Order Added by Discern Expert. Performed By: #### 2 000435 #### [facility] [address] [place] [address] Basophils/Leukocytes Auto (Bld) [Pure # fraction] 0.1 E9/L Normal 0.0-0.2 [facility] Comment on above: Order Comment: Order Added by Discern Expert. Performed By: #### 2 019828 #### [facility] [address] [place] [address] Eosinophils/100 WBC (Bld) 1.3 % Normal 0.0-8.0 [facility] Comment on above: Order Comment: Order Added by Discern Expert. Performed By: #### 2 779282 #### [facility] [address] [place] [address] Eosinophils/Leukocytes Auto (Bld) [Pure # fraction] 0.1 E9/L Normal 0.0-0.5 [facility] Comment on above: Order Comment: Order Added by Discern Expert. Performed By: #### 2 822972 #### [facility] [address] [place] [address] Lymphocytes/100 WBC (Bld) 23.6 % Normal 14.0-50.0 [facility] Comment on above: Order Comment: Order Added by Discern Expert. Performed By: #### 2 642448 #### [facility] [address] [place] [address] Lymphocytes/Leukocytes Auto (Bld) [Pure # fraction] 1.8 E9/L Normal 1.0-4.0 [facility] Comment on above: Order Comment: Order Added by Discern Expert. Performed By: #### 2 003324 #### [facility] [address] [place] [address] Monocytes/100 WBC (Bld) 10.1 % Normal 4.0-14.0 [facility] Comment on above: Order Comment: Order Added by Discern Expert. Performed By: #### 2 061550 #### [facility] [address] [place] [address] Monocytes/Leukocytes Auto (Bld) [Pure # fraction] 0.8 E9/L Normal 0.2-1.0 [facility] Comment on above: Order Comment: Order Added by Discern Expert. Performed By: #### 2 262622 #### [facility] [address] [place] [address] Neutrophils/100 WBC (Bld) 63.8 % Normal 36.0-75.0 [facility] Comment on above: Order Comment: Order Added by Discern Expert. Performed By: #### 2 832339 #### [facility] [address] [place] [address] Neutrophils/Leukocytes Auto (Bld) [Pure # fraction] 4.9 E9/L Normal 2.0-7.5 [facility] Comment on above: Order Comment: Order Added by Discern Expert. Performed By: #### 2 625062 #### [facility] [address] [place] [address] BLOOD BANKOrdered By: Karina Stafford on 04-17-2023 ABO/Rh Interp Positive Invalid Interpretation Code [facility] BB Subsection ABSC Gel Interp Negative (04/17/23 8:42 PM) Normal [facility] BB Subsection BMPon 04-17-2023 Anion gap [Moles/Vol] 14 mmol/L Normal 6-16 [facility] Comment on above: Performed By: #### 2 145774 #### Elena [facility] [address] [facility] [place] [address] BUN/Creat Ratio 21 No Units High 10-20 [facility] Comment on above: Performed By: #### 2 311496 #### [facility] [address] [place] [address] Calcium [Mass/Vol] 9.6 mg/dL Normal 8.9-11.1 [facility] Comment on above: Performed By: #### 2 197457 #### [facility] [address] [place] [address] Chloride [Moles/Vol] 104 mmol/L Normal 101-111 [facility] Comment on above: Performed By: #### 2 464490 #### [facility] [address] [place] [address] CO2 [Moles/Vol] 28 mmol/L Normal 21-31 [facility] Comment on above: Performed By: #### 2 191119 #### [facility] [address] [place] [address] Creatinine [Mass/Vol] 1.7 mg/dL High 0.5-1.3 [facility] Comment on above: Performed By: #### 2 323529 #### [facility] [address] [place] [address] Glucose [Mass/Vol] 135 mg/dL Normal 55-199 [facility] Comment on above: Performed By: #### 2 167765 #### [facility] [address] [facility] [place] [address] Potassium [Moles/Vol] 3.7 mmol/L Normal 3.5-5.3 [facility] Comment on above: Performed By: #### 2 122720 #### [facility] [address] [facility] [place] [address] Sodium [Moles/Vol] 142 mmol/L Normal 135-145 [facility] Comment on above: Performed By: #### 2 225449 #### [facility] [address] [place] [address] Urea nitrogen [Mass/Vol] 36 mg/dL High 5-21 [facility] Comment on above: Performed By: #### 2 390133 #### [facility] [address] [place] [address] Blood Bank ID#on 04-17-2023 BBID# [id number] Invalid Interpretation Code [facility] Comment on above: Performed By: #### 1 [id number], [id number], [id number], [id number] ####[facility] [address] [place] [address] CBC w/ Auto Diffon 3 Erythrocyte distribution width (RBC) [Ratio] 13.8 % Normal 10.9-14.2 [facility] Comment on above: Performed By: #### 2 758629 #### [facility] [address] [place] [address] Hematocrit (Bld) [Volume fraction] 31.5 % Low 34.0-46.0 [facility] Comment on above: Performed By: #### 2 489546 #### [facility] [address] [place] [address] Hemoglobin (Bld) [Mass/Vol] 10.1 g/dL Low 12.0-16.0 [facility] Comment on above: Performed By: #### 2 767148 #### [facility] [address] [place] [address] MCH (RBC) [Entitic mass] 29.4 pg Normal 27.0-34.0 [facility] Comment on above: Performed By: #### 2 601062 #### [facility] [address] [place] [address] MCHC (RBC) [Mass/Vol] 32.1 g/dL Normal 31.4-36.0 [facility] Comment on above: Performed By: #### 2 962580 #### [facility] [address] [place] [address] MCV (RBC) [Entitic vol] 91.4 fL Normal 80.0-100.0 [facility] Comment on above: Performed By: #### 2 350000 #### [facility] [address] [place] [address] Platelet mean volume (Bld) [Entitic vol] 8.9 fL Normal 6.4-10.8 [facility] Comment on above: Performed By: #### 2 439004 #### [facility] [address] [place] [address] Platelets (Bld) [#/Vol] 271.0 E9/L Normal 150.0-500.0 [facility] Comment on above: Performed By: #### 2 193795 #### [facility] [address] [place] [address] RBC (Bld) [#/Vol] 3.4 E12/L Low 4.3-5.9 [facility] Comment on above: Performed By: #### 2 246478 #### [facility] [address] [place] [address] WBC corrected for nucl RBC Auto (Bld) [#/Vol] 7.7 E9/L Normal 4.0-11.0 [facility] Comment on above: Performed By: #### 2 542153 #### [facility] [address] [place] [address] CHEMISTRYOrdered By: Autumn Renteria on 04-17-2023 U [...] 36.5 second(s) [facility] Auto Coag Comment on [...] instrumentation as [facility]. Currently there are no coagulation studies available worldwide for children to 14 days, and no normal ranges. Heparin therapeutic range (represented by Anti-Factor Xa activity of 0.2 - 0.4 U/mL) corresponds to PTT of 56.6 - 109.0 sec. INR Coag (PPP) [Relative time] 1.2 {INR} Invalid Interpretation Code [facility] Comment on above: Interpretive Data: I NR results are specifically intended to assess patients stabilized on long-term Anticoagulation therapy suggested INR s Less Intensive Anticoagulation 2.0 3.0 Conventional Range 3.0 4.5 PT Coag (PPP) [Time] 13.1 s High 9.4 - 1 2.5 second(s) [facility] Auto Coag Comment on [...] instrumentation as [facility]. Currently there are no coagulation studies available worldwide for children to 14 days, and no normal ranges. Consent for Treatmenton 03-28 Consent for Treatment [id number] #1.00TIFF Normal [facility] Ethanolon 04-17-2023 Ethanol Lvl 83 mg/dL Abnormal <=7 [facility] Comment on above: Result Comment: Crit ical Result S_ETOH:83 Called to and read back by: TAI BARBA at: 04/17/2023 21:19:24 by:CADY RENTERIA Critical Result Verified by Repeat Analysis Performed By: #### 2 617265 #### [facility] [address] [place] [address] HEMATOLOGYOrdered By: SYSTEM SYSTEM on 04-17-2023 Basophils/100 [...] 04-17-2023 Albumin [Mass/Vol] 4.1 g/dL Normal 3.3-5.0 [facility] Comment on above: Performed By: #### 2 866898 #### [facility] [address] [place] [address] Albumin/Globulin [Mass ratio] 1.2 {ratio} Normal 1.1-2.2 [facility] Comment on above: Performed By: #### 2 026858 #### [facility] [address] [place] [address] Alk Phos 68 Int._Unit/L Normal 21-98 [facility] Comment on above: Performed By: #### 2 302237 #### [facility] [address] [place] [address] ALT 14 Int._Unit/L Normal 6-46 [facility] Comment on above: Performed By: #### 2 642131 #### [facility] [address] [place] [address] AST 14 Int._Unit/L Normal 5-43 [facility] Comment on above: Performed By: #### 2 399811 #### [facility] [address] [place] [address] Bili Direct 0.2 mg/dL Normal 0.0-0.4 [facility] Comment on above: Performed By: #### 2 996636 #### [facility] [address] [place] [address] Bili Indirect 0.6 mg/dL Normal 0.1-0.9 [facility] Comment on above: Performed By: #### 2 701033 #### [facility] [address] [place] [address] Bili Total 0.8 mg/dL Normal 0.0-1.1 [facility] Comment on above: Performed By: #### 2 264984 #### [facility] [address] [place] [address] Globulin (S) [Mass/Vol] 3.4 g/dL Normal 1.4-4.0 [facility] [facility] Comment on above: Performed By: #### 2 [id number] #### [facility] [address] [place] [address] Protein [Mass/Vol] 7.5 g/dL Normal 6.0-7.8 [facility] Comment on above: Performed By: #### 2 [id number] #### [facility] [address] [place] [address] Lactic Acidon 04-17-2023 Lactic Acid Lvl 2.1 mmol/L Normal 0.5-2.2 [facility] Comment on above: Performed By: #### 2 [id number] #### [facility] [address] [place] [address] Lipase Levelon 04-17-2023 Lipase Lvl 235 unit/L High 13-58 [facility] Comment on above: Performed By: #### 1 [id number], [id number], [id number], [id number], [id number] ####[facility] [id number] [place] [address] PT & PTTon 04-17-2023 aPTT Coag (PPP) [Time] 32.6 second(s) Normal 25.1-36.5 [facility] Comment on above: Result Comment: Para [...] instrumentation [place] [facility] [place] Currently there are no coagulation studies available worldwide for children to 14 days, and no normal ranges. Heparin therapeutic range (represented by Anti-Factor Xa activity of 0.2 - 0.4 U/mL) corresponds to PTT of 56.6 - 109.0 sec. Performed By: #### 2 [id number] #### [facility] [address] [place] [address] INR Coag (PPP) [Relative time] 1.2 {INR} Invalid Interpretation Code [facility] Comment on above: Result Comment: INR results are specifically intended to assess patients stabilized on long-term Anticoagulation therapy suggested INR?s ?Less Intensive Anticoagulation? 2.0 ? 3.0 Conventional Range 3.0 ? 4.5 Performed By: #### 2 [id number] #### [facility] [address] [place] [address] PT Coag (PPP) [Time] 13.1 second(s) High 9.4-12.5 [facility] Comment on above: Result Comment: 15 [...] instrumentation as [facility] [place] Currently there are no coagulation studies available worldwide for children to 14 days, and no normal ranges. Performed By: #### 2 [id number] #### [facility] [address] [place] [address] Pre-Arrival Noteon 3 Pre-Arrival Note Pre-Arrival Summary Name: , [facility] Current Date: 04/17/2023 20:28:42 EST Gender: Female Date of : Age: 73 Pre-Arrival Type: EMS ETA: 04/17/2023 20:52:00 EST Primary Care Physician: Presenting Problem: Fall, Hit head Pre-Arrival User: Bernadine Littlejohn RN Referring Source: Location: [place] Completion Date/Time: 04/17/2023 20:22:00 [facility] Emergency Department Pre-Hospital Report Form Vital Signs: 107/54, 80HR, 97% RA Pre-Hospital Report: Fall, Hit head on table Treatment in Route: 2LAC Response to Treatment: Misc. Issues: Normal [facility] Troponinon 04-17-2023 Troponin 8.90 pg/mL Low 10.10-27.10 [facility] Comment on above: Result Comment: The 95% CI (Confidence Interval) PPV (Positive Predictive Value) for myocardial infarction in females is 38 pg/mL, in males 51 pg/mL. The results should be used in conjunction with clinical conditions of myocardial infarction. (Access High Sensitivity Troponin I Instructions For Use, Jessica [place], November 2017) Performed By: #### 2 [id number] #### [facility] [address] [place] [address] eGFRon 04-17-2023 eGFR 31 mL/min/1.73 m2 Low >=59 [facility] Comment on above: Order Comment: Order added by Discern Expert. Performed By: #### 1 [id number], [id number], [id number] ####[facility] [id number] [place] [address] GLYCOHEMOGLOBIN A1Con 2022 ADA RECOMMENDATION SEE BELOW Normal [facility] Comment on above: Result Comment: ADA RECOMMENDED LIMIT 4.0 - 6.0 ADA THERAPEUTIC TARGET < 7.0 ACTION SUGGESTED > 7.0 Performed By: #### A 1C #### [facility] [address] [address] [address] Vanessa Denis Glucose [Mass/Vol] 223 mg/dL Normal [facility] Comment on above: Performed By: #### A 1C #### [facility] [address] [address] [address] Vanessa Denis HbA1c (Bld) [Mass fraction] 9.4 % Critically high 4.5-6.2 [facility] Comment on above: Performed By: #### A 1C #### [facility] [address] [place] [address] Dr. Vanessa Denis PROF 14(COMP METB)on 023 Albumin [Mass/Vol] 3.4 g/dL Normal 3.4-5.0 [facility] Comment on above: Performed By: #### C MP #### [facility] [address] [place] [address] Dr. Vanessa Denis Albumin/Globulin [Mass ratio] 0.8 {ratio} Normal [facility] Comment on above: Performed By: #### C MP #### [facility] [address] [place] [address] Dr. Vanessa Denis ALP [Catalytic activity/Vol] 71 U/L Normal 46-116 [facility] Comment on above: Performed By: #### C MP #### [facility] [address] [place] [address] Dr. Vanessa Denis ALT [Catalytic activity/Vol] 25 U/L Normal 14-59 [facility] Comment on above: Performed By: #### C MP #### [facility] [address] [place] [address] Dr. Vanessa Denis Anion gap [Moles/Vol] 6.7 mmol/L Normal [facility] Comment on above: Performed By: #### C MP #### [facility] [address] [place] [address] Dr. Vanessa Denis AST [Catalytic activity/Vol] 19 U/L Normal 15-37 [facility] Comment on above: Performed By: #### C MP #### [facility] [address] [place] [address] Dr. Vanessa Denis Bilirubin [Mass/Vol] 0.9 mg/dL Normal 0.2-1.0 [facility] Comment on above: Performed By: #### C MP #### [facility] [address] [place] [address] Dr. Vanessa Denis Calcium [Mass/Vol] 9.5 mg/dL Normal 8.5-10.1 [facility] Comment on above: Performed By: #### C MP #### [facility] [address] [address] [address] Vanessa Denis Chloride [Moles/Vol] 102 mmol/L Normal 98-107 [facility] Comment on above: Performed By: #### C MP #### [facility] [address] [address] [address] Vanessa Denis CO2 [Moles/Vol] 35.2 mmol/L Critically high 21.0-32.0 [facility] Comment on above: Performed By: #### C MP #### [facility] [address] [place] [address] Dr. Vanessa Denis Creatinine [Mass/Vol] 1.23 mg/dL Critically high 0.55-1.02 [facility] Comment on above: Performed By: #### C MP #### [facility] [address] [place] [address] Dr. Vanessa Denis EGFR-AF ALGERIAN 52 mL/min/1.73m2 Critically low >=60 [facility] Comment on above: Performed By: #### C MP #### [facility] [address] [place] [address] Dr. Vanessa Denis EGFR-NON AF ALGERIAN 43 mL/min/1.73m2 Critically low >=60 [facility] Comment on above: Performed By: #### C MP #### [facility] [address] [place] [address] Dr. Vanessa Denis Globulin (S) [Mass/Vol] 4.1 g/dL Normal [facility] Comment on above: Performed By: #### C MP #### [facility] [address] [place] [address] Dr. Vanessa Denis Glucose [Mass/Vol] 267 mg/dL Critically high 74-106 [facility] Comment on above: Performed By: #### C MP #### [facility] [address] [place] [address] Dr. Vanessa Denis Potassium [Moles/Vol] 4.9 mmol/L Normal 3.5-5.1 [facility] Comment on above: Performed By: #### C MP #### [facility] [address] [address] [address] Vanessa Denis Protein [Mass/Vol] 7.5 g/dL Normal 6.4-8.2 [facility] Comment on above: Performed By: #### C MP #### [facility] [address] [address] [address] Vanessa Denis Sodium [Moles/Vol] 139 mmol/L Normal 136-145 [facility] Comment on above: Performed By: #### C MP #### [facility] [address] [address] [address] Vanessa Denis Urea nitrogen [Mass/Vol] 26.0 mg/dL Critically high 7.0-18.0 [facility] Comment on above: Performed By: #### C MP #### [facility] [address] [address] [address] Vanessa Denis Urea nitrogen/Creatinine [Mass ratio] 21.1 mg/mg Normal [facility] Comment on above: Performed By: #### C MP #### [facility] [address] [address] [address] Vanessa Denis CTA CHEST WO W [...] TWYLA CONTEH Date: 2022-05-30 14:23 Normal [facility] GLYCOHEMOGLOBIN A1Con 2022 ADA RECOMMENDATION SEE BELOW Normal [facility] Comment on above: Result Comment: ADA RECOMMENDED LIMIT 4.0 - 6.0 ADA THERAPEUTIC TARGET < 7.0 ACTION SUGGESTED > 7.0 Performed By: #### A 1C #### [facility] [address] [place] [address] Dr. Vanessa Denis Glucose [Mass/Vol] 203 mg/dL Normal [facility] Comment on above: Performed By: #### A 1C #### [facility] [address] [place] [address] Dr. Vanessa Denis HbA1c (Bld) [Mass fraction] 8.7 % Critically high 4.5-6.2 [facility] Comment on above: Performed By: #### A 1C #### [facility] [address] [place] [address] Dr. Vanessa Denis HEMOGRAM AND PLATELon 2022 Hematocrit (Bld) [Volume fraction] 45.4 % Normal 36.0-48.0 [facility] Comment on above: Performed By: #### H H #### [facility] [address] [place] [address] Dr. Vanessa Denis Hemoglobin (Bld) [Mass/Vol] 14.5 g/dL Normal 12.0-16.0 [facility] Comment on above: Performed By: #### H H #### [facility] [address] [place] [address] Dr. Vanessa Denis MCH (RBC) [Entitic mass] 29.0 pg Normal 26.7-34.0 [facility] Comment on above: Performed By: #### H H #### [facility] [address] [place] [address] Dr. Vanessa Denis MCHC (RBC) [Mass/Vol] 31.9 g/dL Normal 29.9-35.2 [facility] Comment on above: Performed By: #### H H #### [facility] [address] [address] [address] Vanessa Denis MCV (RBC) [Entitic vol] 90.8 fL Normal 81.0-99.0 [facility] Comment on above: Performed By: #### H H #### [facility] [address] [place] [address] Dr. Vanessa Denis PLT 164 103/ul Normal 150-450 [facility] Comment on above: Performed By: #### H H #### [facility] [address] [address] [address] Vanessa Denis RBC 5.00 106/ul Normal 4.20-5.40 [facility] Comment on above: Performed By: #### H H #### [facility] [address] [place] [address] Dr. Vanessa Denis WBC 7.6 103/ul Normal 4.0-11.0 [facility] Comment on above: Performed By: #### H H #### [facility] [address] [place] [address] Dr. Vanessa Denis LIPID PROFILEon 05-30-2022 CHOL-HDL RATIO NORM SEE BELOW Normal [facility] Comment on above: Result Comment: 3.3 - 4.4 LOW RISK 4.4 - 7.1 AVERAGE RISK 7.1 - 11.0 MODERATE RISK >11.0 HIGH RISK Performed By: #### L IPID, TSH #### [facility] [address] [place] [address] Dr. Vanessa Denis Cholesterol [Mass/Vol] 110 mg/dL Normal <=200 [facility] Comment on above: Performed By: #### L IPID, TSH #### [facility] [address] [place] [address] Dr. Vanessa Denis Cholesterol in HDL [Mass/Vol] 51 mg/dL Normal 40-60 [facility] Comment on above: Performed By: #### L IPID, TSH #### [facility] [address] [place] [address] Dr. Vanessa Denis Cholesterol in LDL [Mass/Vol] 39.4 mg/dL Normal [facility] Comment on above: Performed By: #### L IPID, TSH #### [facility] [address] [address] [address] Vanessa Denis Cholesterol.total/Chol esterol in HDL [Mass ratio] 2.2 {ratio} Normal [facility] Comment on above: Performed By: #### L IPID, TSH #### [facility] [address] [address] [address] Vanessa Denis HDL NORMAL > or = 60 mg/dl - LOW CARDIOVASCULAR RISK <40 mg/dl - HIGH CARDIOVASCULAR RISK Normal [facility] Comment on above: Performed By: #### L IPID, TSH #### [facility] [address] [place] [address] Dr. Vanessa Denis LDL CALC NORMAL SEE BELOW Normal [facility] Comment on above: Result Comment: <100 mg/dl OPTIMAL 100 - 129 mg/dl NEAR OR ABOVE OPTIMAL 130 - 159 mg/dl BORDERLINE HIGH 160 - 189 mg/dl HIGH >190 mg/dl VERY HIGH Performed By: #### L IPID, TSH #### [facility] [address] [place] [address] Dr. Vanessa Denis Triglyceride [Mass/Vol] 98 mg/dL Normal <=150 [facility] Comment on above: Performed By: #### L IPID, TSH #### [facility] [address] [place] [address] Dr. Vanessa Denis VLDL CALC 19.6 mg/dL Normal [facility] Comment on above: Performed By: #### L IPID, TSH #### [facility] [address] [address] [address] Vanessa Denis PROF 14(COMP METB)on 023 Albumin [Mass/Vol] 3.4 g/dL Normal 3.4-5.0 [facility] Comment on above: Performed By: #### C MP #### [facility] [address] [place] [address] Dr. Vanessa Denis Albumin/Globulin [Mass ratio] 0.9 {ratio} Normal [facility] Comment on above: Performed By: #### C MP #### [facility] [address] [address] [address] Vanessa Denis ALP [Catalytic activity/Vol] 68 U/L Normal 46-116 [facility] Comment on above: Performed By: #### C MP #### [facility] [address] [address] [address] Vanessa Denis ALT [Catalytic activity/Vol] 23 U/L Normal 14-59 [facility] Comment on above: Performed By: #### C MP #### [facility] [address] [place] [address] Dr. Vanessa Denis Anion gap [Moles/Vol] 10.1 mmol/L Normal [facility] Comment on above: Performed By: #### C MP #### [facility] [address] [place] [address] Dr. Vanessa Denis AST [Catalytic activity/Vol] 21 U/L Normal 15-37 [facility] Comment on above: Performed By: #### C MP #### [facility] [address] [place] [address] Dr. Vanessa Denis Bilirubin [Mass/Vol] 0.9 mg/dL Normal 0.2-1.0 [facility] Comment on above: Performed By: #### C MP #### [facility] [address] [place] [address] Dr. Vanessa Denis Calcium [Mass/Vol] 9.2 mg/dL Normal 8.5-10.1 [facility] Comment on above: Performed By: #### C MP #### [facility] [address] [place] [address] Dr. Vanessa Denis Chloride [Moles/Vol] 101 mmol/L Normal 98-107 [facility] Comment on above: Performed By: #### C MP #### [facility] [address] [place] [address] Dr. Vanessa Denis CO2 [Moles/Vol] 31.5 mmol/L Normal 21.0-32.0 [facility] Comment on above: Performed By: #### C MP #### [facility] [address] [place] [address] Dr. Vanessa Denis Creatinine [Mass/Vol] 1.15 mg/dL Critically high 0.55-1.02 [facility] Comment on above: Performed By: #### C MP #### [facility] [address] [address] [address] Vanessa Denis EGFR-AF ALGERIAN 56 mL/min/1.73m2 Critically low >=60 [facility] Comment on above: Performed By: #### C MP #### [facility] [address] [address] [address] Vanessa Denis EGFR-NON AF ALGERIAN 46 mL/min/1.73m2 Critically low >=60 [facility] Comment on above: Performed By: #### C MP #### [facility] [address] [place] [address] Dr. Vanessa Denis Globulin (S) [Mass/Vol] 4.0 g/dL Normal [facility] Comment on above: Performed By: #### C MP #### [facility] [address] [address] [address] Vanessa Denis Glucose [Mass/Vol] 254 mg/dL Critically high 74-106 [facility] Comment on above: Performed By: #### C MP #### [facility] [address] [address] [address] Vanessa Denis Potassium [Moles/Vol] 4.6 mmol/L Normal 3.5-5.1 [facility] Comment on above: Performed By: #### C MP #### [facility] [address] [address] [address] Vanessa Denis Protein [Mass/Vol] 7.4 g/dL Normal 6.4-8.2 [facility] Comment on above: Performed By: #### C MP #### [facility] [address] [address] [address] Vanessa Denis Sodium [Moles/Vol] 138 mmol/L Normal 136-145 [facility] Comment on above: Performed By: #### C MP #### [facility] [address] [place] [address] Dr. Vanessa Denis Urea nitrogen [Mass/Vol] 24.0 mg/dL Critically high 7.0-18.0 [facility] Comment on above: Performed By: #### C MP #### [facility] [address] [place] [address] Dr. Vanessa Denis Urea nitrogen/Creatinine [Mass ratio] 20.9 mg/mg Normal [facility] Comment on above: Performed By: #### C MP #### [facility] [address] [place] [address] Dr. Vanessa Denis TSHon 05-30-2022 TSH 2.067 uIU/mL Normal 0.358-3.740 [facility] Comment on above: Performed By: #### L IPID, TSH #### [facility] [address] [place] [address] Dr. Vanessa Denis Vital Signs Date Time Vital Sign Value Performing Clinician Facility 06-24-2023 13:52-0500 Blood Pressure Location Doug SORTOL [facility] 06-24-2023 13:52-0500 Diastolic blood pressure 78 mm[Hg] Doug NILL [facility] 06-24-2023 13:52-0500 Heart rate 68 /min Doug SORTOL [facility] 06-24-2023 13:52-0500 Respiratory rate 16 /min Doug SORTOL [facility] 06-24-2023 13:52-0500 Systolic blood pressure 110 mm[Hg] Doug SORTOL [facility] 06-09-2023 11:52-0500 Body height 152.4 cm Dg Proctor MD Work Phone: [facility] 06-09-2023 11:52-0500 Body mass index (BMI) [Ratio] 32.42 kg/m2 Dg Proctor MD Work Phone: [facility] 06-09-2023 11:52-0500 Body weight 75.3 kg Dg Proctor MD Work Phone: [facility] 04-18-2023 00:39-0500 Diastolic blood pressure 95 mm[Hg] Kaylinn Dokken [facility] 04-18-2023 00:39-0500 Heart rate 74 /min Kaylinn Dokken [facility] 04-18-2023 00:39-0500 Mean blood pressure 117 mm[Hg] Kaylinn Dokken [facility] 04-18-2023 00:39-0500 Respiratory rate 22 /min Kaylinn Dokken [facility] 04-18-2023 00:39-0500 SaO2% (BldA) [Mass fraction] 97 % Kaylinn Dokken [facility] 04-18-2023 00:39-0500 Systolic blood pressure 161 mm[Hg] Kaylinn Dokken [facility] 04-17-2023 23:43-0500 Diastolic blood pressure 71 mm[Hg] Kaylinn Dokken [facility] 04-17-2023 23:43-0500 Heart rate 63 /min Kaylinn Dokken [facility] 04-17-2023 23:43-0500 Mean blood pressure 98 mm[Hg] Kaylinn Dokken [facility] 04-17-2023 23:43-0500 Respiratory rate 15 /min Kaylinn Dokken [facility] 04-17-2023 23:43-0500 SaO2% (BldA) [Mass fraction] 96 % Kaylinn Dokken [facility] 04-17-2023 23:43-0500 Systolic blood pressure 151 mm[Hg] Kaylinn Dokken [facility] 04-17-2023 23:23-0500 Body temperature 97.88 [degF] Kaylinn Dokken [facility] 04-17-2023 23:23-0500 Diastolic blood pressure 82 mm[Hg] Kaylinn Dokken [facility] 04-17-2023 23:23-0500 Heart rate 68 /min Kaylinn Dokken [facility] 04-17-2023 23:23-0500 Mean blood pressure 99 mm[Hg] Kaylinn Dokken [facility] 04-17-2023 23:23-0500 Respiratory rate 20 /min Kaylinn Dokken [facility] 04-17-2023 23:23-0500 SaO2% (BldA) [Mass fraction] 94 % Kaylinn Dokken [facility] 04-17-2023 23:23-0500 Systolic blood pressure 134 mm[Hg] Kaylinn Dokken [facility] 04-17-2023 22:39-0500 Respiratory rate 18 /min Kaylinn Dokken [facility] 04-17-2023 21:50-0500 Respiratory rate 18 /min Kaylinn Dokken [facility] 04-17-2023 20:50-0500 Body temperature 98.06 [degF] Kaylinn Dokken [facility] 04-17-2023 20:50-0500 Heart rate 72 /min Kaylinn Dokken [facility] 04-17-2023 20:50-0500 Respiratory rate 18 /min Nancy Stern [facility] 04-17-2023 20:29-0500 Body temperature 98.06 [degF] Nancy Stern [facility] 04-17-2023 20:29-0500 Heart rate 76 /min Nancy Stern [facility] 02-23-2023 13:40-0400 Body height 152.4 cm Nicolás [facility] [employer] Other 02-23-2023 13:40-0400 Body mass index (BMI) [Ratio] 34.72 kg/m2 Nicolás Orlando [facility] [employer] Other 02-23-2023 13:40-0400 Body temperature 96.8 [degF] Nicolás [facility] Other [employer] Other 02-23-2023 13:40-0400 Body weight 80.65 kg Nicolás [place] Other [employer] Other 02-23-2023 13:40-0400 Diastolic blood pressure 82 mm[Hg] Nicolás [place] Other [employer] Other 02-23-2023 13:40-0400 Respiratory rate 20 /min Nicolás [facility] [employer] Other 02-23-2023 13:40-0400 SaO2% (BldA) [Mass fraction] 99 % Nicolás [facility] [employer] Other 02-23-2023 13:40-0400 Systolic blood pressure 132 mm[Hg] Nicolás [facility] [employer] Other 12-31-2022 09:00-0400 Body height 152.4 cm Nicolás [facility] [employer] Other 12-31-2022 09:00-0400 Body mass index (BMI) [Ratio] 32.14 kg/m2 Nicolás [facility] [employer] Other 12-31-2022 09:00-0400 Body temperature 96.3 [degF] Nicolás Orlando Other [employer] Other 12-31-2022 09:00-0400 Body weight 74.66 kg Nicolás [facility] Other [employer] Other 12-31-2022 09:00-0400 Diastolic blood pressure 56 mm[Hg] Nicolás [facility] Other [employer] Other 12-31-2022 09:00-0400 Respiratory rate 20 /min Nicolás [facility] Other [employer] Other 12-31-2022 09:00-0400 SaO2% (BldA) [Mass fraction] 98 % Nicolás Orlando [facility] [employer] Other 12-31-2022 09:00-0400 Systolic blood pressure 91 mm[Hg] Nicolás [facility] Other [employer] Other Encounters Encounter Date Encounter Type Care Provider Facility Start: 10-13-2023 ambulatory KEN Crow ty:TIFFANIE Oliver Start: 09-08-2023 End: 09-08-2023 ambulatory DG PROCTOR Not Available Start: 06-30-2023 End: 07-01-2023 ambulatory MD NICOLÁS [...] Oliver Start: 05-21-2023 End: 05-21-2023 ambulatory Nicolás Perry Other [employer] Other Start: 05-21-2023 Office outpatient vi sit 25 minutes Nicoláskwame Perry [facility] Start: 04-17-2023 End: 04-18-2023 Emergency department patient visit Nancy Stern [place] [place]: 04-17-2023 End: 04-18-2023 Emergency department patient visit Nancy Stern [facility] Start: 04-08-2023 End: 04-08-2023 ambulatory Nicolás Orlando Other [facility] Other Start: 04-08-2023 Telephone encounter Nicolás Orlando [facility] Start: 02-27-2023 ambulatory Nancy Stern Facility :[facility] Start: 02-23-2023 End: 02-23-2023 ambulatory Nicolás Orlando Other [employer] Other Start: 02-23-2023 Office outpatient vi sit 25 minutes Nicolás Orlando [facility] Start: 12-31-2022 End: 12-31-2022 ambulatory Nicolás Orlando Other [facility] Other Start: 12-31-2022 Office outpatient ne w 45 minutes Nicolás Orlando [facility] Start: 08-13-2022 End: 08-13-2022 ambulatory DARRION SHAMMO Facility:[facility] Start: 08-11-2022 End: 08-11-2022 ambulatory DARRION SHAMMO Facility:[facility] Start: 05-30-2022 End: 05-31-2022 ambulatory DARRION SHAMMO Facility:[facility] Start: 05-28-2022 End: 05-28-[address] JENIFER CASTILLO Facility:[facility] Start: 07-08-2021 End: 02-03-2022 ambulatory [facility] Procedures Date Procedure Procedure Detail Performing Clinician Start: 05-19-2013 Colonoscopy Doug CAMILO Colonoscopy Karynadarlene liz Dilation of urethra Doug SORTOL Division of Left Ank le Tendon, Open Approach Doug NILL Excision of Left Tar julia, Open Approach Doug NILL Fusion of Left Tarsa l Joint with Internal Fixation Device, Open Approach Doug SORTOL Repair of cleft palate Sampson nancy FERNANDEZ Tonsillectomy Karynadarlene liz Tonsillectomy and adenoidectomy Doug SORTOL Plan of Treatment Date Care Activity Detail [...] [facility] [address] [place] [address] Dg Proctor MD [address] [facility] [address] [place] [address] [facility] Start: 1950 Medicare Annual Well ness (AWV) Medicare Annual Wellness (AWV) [facility] Start: 1950 Screening for malign ant neoplasm of colon [facility] Immunizations Immunization Date Immunization Notes Care Provider Fa cility 02-19-2023 influenza virus vaccine, unspecified formulation Doug FERNANDEZ [facility] 02-06-2022 SARS-CoV-2 (COVID-19 ) [id number] Doug FERNANDEZ [facility] 05-06-2021 SARS-CoV-2 (COVID-19 ) mRNA BNT-162b2 vax Doug FERNANDEZ [facility] [place] 07-06-2020 SARS-CoV-2 (COVID-19 ) Ad26 vaccine, recombinant Doug FERNANDEZ [facility] [place] Payers Date Payer Category Payer Medicaid MEDICAID [facility] [id number] 2021-Present [phone] [address] [place] [address] Medicaid [id number] 2020 Private Health Insurance [id number] 2013 Medicare MEDICARE MEDICAR E PART B [id number] 2013-[place] [address] [place] [address] Medicare [id number] 1959 Medicaid [id number] 1959 Medicare [id number] 1948 Unknown [id number] 93 1948 Unknown [id number] 2.16.840.1.990182.3.579.2.5 93 1948 Unknown [id number] 2.16.840.1.083637.3.579.2.5 93 1948 Unknown [id number] 2.16.840.1.141574.3.579.2.5 93 1948 Unknown [id number] 2.16.840.1.956020.3.579.2.5 93 1948 Unknown [id number] 2.16.840.1.790850.3.579.2.7 27 1948 Unknown [id number] 2.16.840.1.078061.3.579.2.7 27 1948 Unknown [id number] 2.16.840.1.180489.3.579.2.7 27 1948 Unknown [id number] 2.16.840.1.285911.3.579.2.7 27 1948 Unknown [id number] 2.16.840.1.889047.3.579.2.7 27 1948 Unknown [id number] 2.16.840.1.987335.3.579.2.1 259 1948 Unknown [id number] 2.16.840.1.523673.3.579.2.1 259 Social History Date Type Detail Facility Unknown if ever smoked [facility] Other Sex Assigned At [facility] Start: 07-10-2020 End: 06-24-2023 Tobacco smoking status Ex-smoker (finding) [facility] Tobacco smoking status NHIS Tobacco smoking consumption unknown [facility] Start: 1950 Sex Assigned At Not on file N [facility] Healthcare Tobacco smoking status Never [facility] Functional Status Date Assessment Result Facility 06-24-2023 Functional Status N/A [facility] 04-17-2023 Functional Status N/A [facility] Clinical Notes 12-31-2022 to 06-24-2023 Dg Proctor [...] mg= 1 tab(s), Oral, Daily Vitamin D3, 86948 unit(s), Oral, qWeek Zoloft 25 mg Tab, [...] virus vaccine, inactivated 02/19/2023 Recorded SARS-CoV-2 (COVID-19) [id number].[id number] 02/06/2022 Recorded SARS-CoV-2 (COVID-19) mRNA BNT-162b2 vax (more content not included)... [facility] Comment on above: Result Comment: Elec tronically Signed By: REBECCA KILLIAN, Doug Dominique\Date and Time Signed: 06/24/23 14:18 EST 06-09-2023 History of Present illness Narrative Associated Problem(s): Polyneuropathy TSH + fT4. Emphasized good A1c control. Associated Problem(s): Sequelae of cerebral infarction Echo c bubble study. ([facility] or [place]). US carotids ([facility]). (Continue ASA.) Images from the original note were not included. Outpatient Progress Note Prev Appt: Visit date not found Chief Complaint Patient presents with Memory Loss Assessment and Plan - Sequelae of cerebral infarction Echo c bubble study. ([place] or [place]). US carotids ([facility]). (Continue ASA.) Polyneuropathy TSH [...] Nov, hemipar R face & hand. -> [facility]. Known DM. Onset Semeiology Imaging US carotids (03/2020, [place]) - < 50% B CT head (12/2019, [place]) - neg Testing Surgery Failed Dx PN [...] mouth in the morning. D3-50 1.25 MG (10319 UT) capsule ferrous sulfate 325 (65 Fe) [...] as of 06/09/2023. documented in this encounter [facility] 05-21-2023 Evaluation note Encounter Date Diagnosis [...] and no personal patient information was compromised. [employer] Other [id number] Hospital Discharge instructions Patient Education 04/18/2023 00:43:25 [...] Ask your health care provider for a [id number] plan for gradually returning to activities. Ask [...] your friends, family, a trusted colleague, and social work associate about your injury, symptoms, and restrictions. Have them watch for any new or worsening problems. General instructions Take kcnn-dso-[id number] and prescription medicines only as told by [...] provider. Document Revised: 02/24/2020 Document Reviewed: 02/24/2020 [employer] Patient Education 2022 [employer]. Follow Up Care 04/17/2023 20:26:54 With:RICHARD VARGAS Address: [address] [place] [phone] Business (1) When:04/20/2023 Comments:Follow-up with your primary care provider in 3 to 5 days. If symptoms worsen, do not improve, or new symptoms arise please report back to emergency department for further evaluation. [facility]12-22-2023 Evaluation + Plan noteExtracted from: [...] Date:06/30/2023 10:00:00 AM Scheduled Provider:KEN OZUNA PA-C Location:[facility] Appointment Type:URO Office Visit [facility]10-30-2023 Evaluation note* Encounter Date Diagnosis [...] recent gout flare. Continue monitor without medications. [facility] Other 09-06-2023 Evaluation note* Encounter Date Diagnosis [...] We will check also for paraproteinemia work-up. [employer] Other Evaluation + Plan note Future Appointments Appointment Date:06/30/2023 10:00:00 AM Scheduled Provider:KEN OZUNA PA-C Location:[facility] Appointment Type:URO Office Visit [facility] Evaluation noteNo InformationNort [employer] Other Evaluation note* Diagnosis Sequelae of cerebral [...] TONSILLECTOMY AND ADENOIDECTOMY Hospitalization History SEE ABOVE [facility] Other History general Narrative - Reported* Type [...] TONSILLECTOMY AND ADENOIDECTOMY Hospitalization History SEE ABOVE [facility] Other Hospital course Narrative No data available for this section [facility] No data available for this section [facility] Progress note No data available for this section [facility] Summary Purpose Family History No Family History Records FoundNo Family History Records Found No data available for this section No data available for this section No Family History Records FoundNo Family History Records Found Advance Directives No Advanced Directives Records FoundNo Advanced Directives Records FoundNo Advanced Directives Records FoundNo Advanced Directives Records Found Additional Source Comments INFORMATION SOURCE (unrecogn ized section and content) DATE CREATED AUTHOR 02/03/2022 [facility] DATE CREATED AUTHOR AUTHOR'S ORGANIZ ATION 08/22/2022 [facility] DATE CREATED AUTHOR AUTHOR'S ORGANIZ ATION 07/20/2023 [facility] DATE CREATED AUTHOR AUTHOR'S ORGANIZ ATION 09/10/2023 [facility] d[facility] Specialists EPIC REASON FOR VISIT (unrecogniz ed section and content) Reason Comments Memory Loss Patient Care team informatio n (unrecognized section and content) 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 [employer] provides no warranty or guarantee of the accuracy or completeness of information in this document.
[2023-09-11 10:06] LABS: Free T4 1.02 ng/dL (0.76-1.46)
[2023-09-11 10:14] LABS: Thyroid Stimulating Hormone 2.627 uIU/mL (0.358-3.740)
== END 2023-09-11 02:23 | disposition home or self-care (01) ==
LOC: LAB 02:22
PROVIDERS: PCP Nurse Practitioner Primary Care; Visit Provider Psychiatry & Neurology Neurology
DX: G62.9 Polyneuropathy, unspecified (principal); R79.89 Other specified abnormal findings of blood chemistry; G60.9 Hereditary and idiopathic neuropathy, unspecified; Z11.3 Encounter for screening for infections with a predominantly sexual mode of transmission; E53.1 Pyridoxine deficiency; I70.91 Generalized atherosclerosis; D51.3 Other dietary vitamin B12 deficiency anemia; M79.10 Myalgia, unspecified site; E78.5 Hyperlipidemia, unspecified
CPT/HCPCS: 36415; 84439; 84443

== ENCOUNTER 2023-09-16 01:58 | Outpatient (REF) | payer MEDICARE, MEDICAID, SELFPAY ==
--- OUTSIDE RECORDS SUMMARY | 2023-09-16 02:04 | XMS_ITS | CCD ---
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 Name Role Phone SHAMMO, DARRION Primary Care [...] DARRION Attending Unavailable SHAMMO, DARRION Consulting Unavailable MauraNicolás calvillo Unavailable RICHARD VARGAS Primary Care Physician [phone] Unavailable Primary Care Provider UnavailEduardo Hollis MD Primary Care Provider SHAMMO, DARRION GEE Primary [...] as needed Orally every 4 hrs Active [id number] actuat albuterol 0.09 mg/actuat metered dose [...] Vitamin D Start: 05-28-2023 D3-50 1.25 MG (19645 UT) capsule ergocalciferol 1.25 mg oral capsule (4 sources) Provitamin D2 Compound take 1 capsule by mouth every week Vitamin D (Ergocalcifero l) 1.25 MG (52423 UT) 1 capsule Orally ONCE A WEEK [...] Vitamin D3 (2 sources) Start: 07-10-2020 take 11575 [IU] by mouth every week Vitamin D3 [...] Osteoporosis 06-10-2023 Chronic Other aftercare (1 source) nursing home (current) use of oral hypoglycemic drugs; 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] Onset: 3 Episodic Other aftercare (1 source) 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; Translations: [OTH NURSING HOME CURRENT DRUG THERAPY] Onset: 3 Episodic Other [...] - Ultrasound Reporton RAD - Ultrasound Report [id number] #1.00TIFF Normal [facility] Lab Reportson 07-03-2023 Lab Reports [id number] 5#1.00TIFF Normal [facility] Lab Reports [id number] 1#1.00TIFF Normal [facility] Physician Referralon 024 Physician Referral [id number] 4#1.00TIFF Normal [facility] RAD - CT Reporton 07-03-2023 RAD - CT Report [id number] 3#1.00TIFF [facility] RAD - Ultrasound Reporton RAD - Ultrasound Report [id number] 0#1.00TIFF Normal [facility] Screenson 07-03-2023 Screens [id number] #1.00TIFF Normal [facility] Mcc Recordson 06-30 Mcc Records [id number] #1.00TIFF [facility] Ambulatory Visit Summaryon 0 06-30-2023 Ambulatory Visit Summary AVILA VALENZUELA :1950 Visit Date:06/30/2023 Ambulatory Visit Instructions Your Diagnosis Mixed incontinence urge and stress Bilateral renal cysts Hydronephrosis, right BMI 34.0-34.9,adult Your Care Team Attending Physician - LAITH YI, KEN Palacios Primary Care Physician - DARRION ARMSTRONG CNP Referring Physician - NICOLÁS PERRY MD This Is Your Medications List Contact [...] Hypothyroidism Lymphed (more content not included)... Normal [facility] Patient Educationon 06-30-19 Patient Education [...] numbers. This can be done either in [place] ([place] or metric measurements. Note that charts and online BMI calculators are available to help you find your BMI quickly and easily without having to do these calculations yourself. To calculate your BMI in [place] ([place] measurements: 1. Measure your weight in [...] for Disease Control and Prevention: www.cdc.gov ? [place] Heart Association: www.heart.org ? National Heart, Lung, and Blood Seibert: www.nhlbi.nih.gov Summary ? Body mass index (BMI) is a number that is calculated from a person's weight and height. ? BMI may help estimate how much of a person's weight is composed of fat. BMI can help identify those who may be at higher risk for certain medical problems. ? BMI can be measured using [place]e measurements or metric measurements. ? BMI charts are used to identify whether you are underweight, normal weight, overweight, or obese. This information is not intended to replace advice given to you by your health care provider. Make sure you discuss any questions you have with your health care provider. Document Revised: 01/04/2020 Document Reviewed: 11/11/2019 [employer] Patient Education ? 2022 CH4e. [facility] Urology Office/Clinic Noteon 06-30-2023 Urology [...] lowest daily dose and slowly titrate up I3kudfd as pt tolerates. I explained the most [...] ls of procedure prior to scheduling. Ordered: 94415 Measure Post Void residual urine and/or bladder capacity by US- non-imaging E&M of Est. Patient High 40-54 Min 67234 2. Bilateral renal cysts (N28.1: Cyst of kidney, acquired) MAURA Sept 2022 tiny, simple -no additional workup needed Ordered: E&M of Est. Patient High 40-54 Min 19289 US Renal 3. Hydronephrosis, right (N13.30: Unspecified [...] E&M of Est. Patient High 40-54 Min 97693 US Renal 4. BMI 34.0-34.9,adult (Z68.34: Body mass index [BMI] 34.0-34.9, adult) healthy diet encouraged Ordered: E&M of Est. Patient High 40-54 Min 95215 Orders: Body Mass Index (BMI) documented 3008F [...] Urnls Dip Stick Auto w/o Microscopy POC 64576 Total time spent reviewing previous notes/results/reliability technician al documents, prepar (more content not included)... Normal [facility] Comment on above: Result Comment: Elec tronically Signed By: KEN OZUNA PA-C\.chin\Date and Time Signed: 06/30/23 12:51 EST Consent for Procedure/Surger yon 06-26-2023 Consent for Procedure/Surgery [id number] #1.00TIFF Normal [facility] Ambulatory Visit Summaryon 0 06-24-2023 [...] KEN OZUNA PA-C Where: [facility] Facesheeton 06-24-2023 Facesheet [id number] 9#1.00TIFF [facility] Physician Referralon 024 Physician Referral [id number] #1.00TIFF [facility] ABO/Rh History Checkon 04-18 ABO/Rh History Check Patient discharged prior Normal [facility] Comment on above: Performed By: #### 1 [id number], [id number], [id number], [id number] ####[facility] [address] [place] [address] CT Head or Brain w/o Contras ton [...] Technologist: QUINCY Technical Comments Contrast: None Normal [facility] CT Spine Cervical w/o Contra [...] V. Transcribed by: GREG Technologist: QUINCY Normal [facility] Discharge Instructionson Discharge Instructions [id number] 8#1.00TIFF Normal [facility] ED Clinical Summaryon 2022 ED Clinical Summary [place] [address] ED Clinical Summary Person Information Name: AVILA VALENZUELA [place] Age: 73 Years : 1950 Sex: Female Language: Surinamese PCP: SAM KILLIAN, RICHARD Yu Marital Status: [...] 00:43:24 04/18/2023 00:43:24 04/18/2023 00:43:24 ADDRESS: [address] [place] [address] [place] [id number] [facility] DOC NOTES: [...] Follow up: With: Address: When: RICHARD VARGAS [address] [place] [id number] [employer] In 3 days 04/20/2023 Comments: Follow-up with your primary care provider in 3 to 5 days. If symptoms worsen, do not improve, or new symptoms arise please report back to emergency department for further evaluation. DIAGNOSIS: Closed head injury; Fall Normal [facility] ED Note-Physicianon 04-18-20 ED Note-Physician Basic Information Time Seen: Royal Sullivan PA-C 04/17/2023 20:31 Chief Complaint Pt arrrives [facility] for a fall. Pt states she hit [...] and Complexity of Problems Differential Diagnosis: [] [facility] Data External documents reviewed: [] My [...] RICHARD SAM In 3 days 04/20/2023 EST [address] [place] [address] Business (1) Additional Instructions: Follow-up with your primary care provider in 3 to 5 days. If symptoms worsen, do not improve, or new symptoms arise please report back to emergency department for further evaluation. Patient Education Head Injury, Adult Attestation Patient seen (more content not included)... Normal [facility] Comment on above: Result Comment: [...] Ask your health care provider for a oldi-tu-gqhk plan for gradually returning to activities. ? [...] your friends, family, a trusted colleague, and vegetable worker about your injury, symptoms, and restrictions. Have them watch for any new or worsening problems. General instructions ? Take wtyg-ggo-xasojwx and prescription medicines only as told by your health care provider. ? Have someone stay with you for 24 hours after your head injury. This person should watch you for any changes in your symptoms and be ready to seek medical help. ? Keep all follow-up visits as told by your health care pr (more content not included)... Normal [facility] ED Patient Summaryon 023 ED Patient Summary [address] [address] Patient Discharge Instructions Person Information Name: AVILA VALENZUELA Age: 73 Years Arrival Date: 04/17/2023 20:26:34 Discharge Diagnosis: Closed head injury; Fall Primary Care Physician: RICHARD VARGAS MD Provider Information Primary Provider: Nancy Stern DO Advanced Go Go Dancer:None The exam and treatment you received in the Emergency Department were for an urgent problem and are not intended as complete care. It is important that you follow up with a doctor, nurse practitioner, or physician?s general office assistant for ongoing care. If your symptoms [...] Follow-up Instructions: With: Address: When: RICHARD VARGAS [address] [place] [id number] [employer] (1) In 3 days 04/20/2023 Comments: Follow-up [...] opioids can be used to help relieve horfobii-ld-jnwxsg pain and are often prescribed following a [...] ? If you (more content not included)... [facility] ED Traumaon 04-18-2023 ED Trauma [id number] 6#1.00TIFF [facility] Monitor Recordon 04-18-2023 Monitor Record [id number] 9#1.00TIFF Normal [facility] Monitor Record [id number] 3#1.00TIFF Normal [facility] Monitor Record [id number] 9#1.00TIFF Normal [facility] RAD - Preliminary Cat Scan R eporton 04-18-2023 RAD - Preliminary Cat Scan Report [id number] 6#1.00TIFF Normal [facility] U Drug Screenon 04-18-2023 U Amph Scr Negative Invalid Interpretation Code [facility] Comment on above: Performed By: #### 2 [id number] #### [facility] Laboratory [address] [place] [address] U Cookie Scr Negative Invalid Interpretation Code [facility] Comment on above: Performed By: #### 2 [id number] #### [facility] Laboratory [address] [place] [address] U Benzodia Scr Negative Invalid Interpretation Code [facility] Comment on above: Performed By: #### 2 [id number] #### [facility] Laboratory [address] [place] [address] U Cannab Scr Negative Invalid Interpretation Code [facility] Comment on above: Performed By: #### 2 [id number] #### [facility] Laboratory [address] [place] [address] U Cocaine Scr Negative Invalid Interpretation Code [facility] Comment on above: Performed By: #### 2 [id number] #### [facility] Laboratory [address] [place] [address] U Opiate Scr Negative Invalid Interpretation Code [facility] Comment on above: Performed By: #### 2 477120 #### [facility] Laboratory [address] [place] [address] U PCP Scr Negative Invalid Interpretation Code [facility] Comment on above: Performed By: #### 2 [id number] #### [facility] Laboratory [address] [place] [address] ABO/Rhon 04-17-2023 ABO/Rh Positive Invalid Interpretation Code [facility] Comment on above: Performed By: #### 1 [id number], [id number], [id number], [id number] ####[facility] [address] [place] [address] ABSCon 04-17-2023 ABSC Gel Interp Negative Normal [facility] Comment on above: Performed By: #### 1 [id number], [id number], [id number], [id number] ####[facility] [address] [place] [address] Auto Diffon 04-17-2023 Basophils/100 WBC (Bld) 1.2 % Normal 0.0-2.0 [facility] Comment on above: Order Comment: Order Added by Discern Expert. Performed By: #### 2 194660 #### [facility] Laboratory [address] [place] [address] Basophils/Leukocytes Auto (Bld) [Pure # fraction] 0.1 E9/L Normal 0.0-0.2 [facility] Comment on above: Order Comment: Order Added by Discern Expert. Performed By: #### 2 325953 #### [facility] Laboratory [address] [place] [address] Eosinophils/100 WBC (Bld) 1.3 % Normal 0.0-8.0 [facility] Comment on above: Order Comment: Order Added by Discern Expert. Performed By: #### 2 [id number] #### [facility] Laboratory [address] [place] [address] Eosinophils/Leukocytes Auto (Bld) [Pure # fraction] 0.1 E9/L Normal 0.0-0.5 [facility] Comment on above: Order Comment: Order Added by Discern Expert. Performed By: #### 2 489022 #### [facility] Laboratory [address] [place] [address] Lymphocytes/100 WBC (Bld) 23.6 % Normal 14.0-50.0 [facility] Comment on above: Order Comment: Order Added by Discern Expert. Performed By: #### 2 782012 #### [facility] Laboratory [address] [place] [address] Lymphocytes/Leukocytes Auto (Bld) [Pure # fraction] 1.8 E9/L Normal 1.0-4.0 [facility] Comment on above: Order Comment: Order Added by Discern Expert. Performed By: #### 2 246292 #### [facility] Laboratory [address] [place] [address] Monocytes/100 WBC (Bld) 10.1 % Normal 4.0-14.0 [facility] Comment on above: Order Comment: Order Added by Discern Expert. Performed By: #### 2 643070 #### [facility] Laboratory [address] [place] [address] Monocytes/Leukocytes Auto (Bld) [Pure # fraction] 0.8 E9/L Normal 0.2-1.0 [facility] Comment on above: Order Comment: Order Added by Discern Expert. Performed By: #### 2 929874 #### [facility] Laboratory [address] [place] [address] Neutrophils/100 WBC (Bld) 63.8 % Normal 36.0-75.0 [facility] Comment on above: Order Comment: Order Added by Discern Expert. Performed By: #### 2 307420 #### [facility] Laboratory [address] [place] [address] Neutrophils/Leukocytes Auto (Bld) [Pure # fraction] 4.9 E9/L Normal 2.0-7.5 [facility] Comment on above: Order Comment: Order Added by Discern Expert. Performed By: #### 2 659434 #### [facility] Laboratory [address] [place] [address] BLOOD BANKOrdered By: Karina Stafford on 04-17-2023 ABO/Rh Interp Positive Invalid Interpretation Code [facility] BB Subsection ABSC Gel Interp Negative (04/17/23 8:42 PM) Normal [facility] BB Subsection BMPon 04-17-2023 Anion gap [Moles/Vol] 14 mmol/L Normal 6-[address] [facility] Comment on above: Performed By: #### 2 [id number] #### [facility] Laboratory [address] [place] [address] BUN/Creat Ratio 21 No Units High 10-20 [facility] Comment on above: Performed By: #### 2 394730 #### [facility] Laboratory [address] [place] [address] Calcium [Mass/Vol] 9.6 mg/dL Normal 8.9-11.1 [facility] Comment on above: Performed By: #### 2 915081 #### [facility] Laboratory [address] [place] [address] Chloride [Moles/Vol] 104 mmol/L Normal 101-111 [facility] Comment on above: Performed By: #### 2 206324 #### [facility] Laboratory [address] [place] [address] CO2 [Moles/Vol] 28 mmol/L Normal 21-31 [facility] Comment on above: Performed By: #### 2 142508 #### [facility] Laboratory [address] [place] [address] Creatinine [Mass/Vol] 1.7 mg/dL High 0.5-1.3 [facility] Comment on above: Performed By: #### 2 895036 #### [facility] Laboratory [address] [place] [address] Glucose [Mass/Vol] 135 mg/dL Normal 55-199 [facility] Comment on above: Performed By: #### 2 320726 #### [facility] Laboratory [address] [place] [address] Potassium [Moles/Vol] 3.7 mmol/L Normal 3.5-5.3 [facility] Comment on above: Performed By: #### 2 709304 #### [facility] Laboratory [address] [place] [address] Sodium [Moles/Vol] 142 mmol/L Normal 135-145 [facility] Comment on above: Performed By: #### 2 327936 #### [facility] Laboratory [address] [place] [address] Urea nitrogen [Mass/Vol] 36 mg/dL High 5-21 [facility] Comment on above: Performed By: #### 2 603057 #### [facility] Laboratory [address] [place] [address] Blood Bank ID#on 04-17-2023 BBID# [id number] Invalid Interpretation Code [facility] Comment on above: Performed By: #### 1 [id number], [id number], [id number], [id number] ####[facility] [address] [place] [address] CBC w/ Auto Diffon 3 Erythrocyte distribution width (RBC) [Ratio] 13.8 % Normal 10.9-14.2 [facility] Comment on above: Performed By: #### 2 [id number] #### [facility] Laboratory [address] [place] [address] Hematocrit (Bld) [Volume fraction] 31.5 % Low 34.0-46.0 [facility] Comment on above: Performed By: #### 2 578608 #### [facility] Laboratory [address] [place] [address] Hemoglobin (Bld) [Mass/Vol] 10.1 g/dL Low 12.0-16.0 [facility] Comment on above: Performed By: #### 2 269847 #### [facility] Laboratory [address] [place] [address] MCH (RBC) [Entitic mass] 29.4 pg Normal 27.0-34.0 [facility] Comment on above: Performed By: #### 2 366308 #### [facility] Laboratory [address] [place] [address] MCHC (RBC) [Mass/Vol] 32.1 g/dL Normal 31.4-36.0 [facility] Comment on above: Performed By: #### 2 305923 #### [facility] Laboratory [address] [place] [address] MCV (RBC) [Entitic vol] 91.4 fL Normal 80.0-100.0 [facility] Comment on above: Performed By: #### 2 592327 #### [facility] Laboratory [address] [place] [address] Platelet mean volume (Bld) [Entitic vol] 8.9 fL Normal 6.4-10.8 [facility] Comment on above: Performed By: #### 2 402643 #### [facility] Laboratory [address] [place] [address] Platelets (Bld) [#/Vol] 271.0 E9/L Normal 150.0-500.0 [facility] Comment on above: Performed By: #### 2 325558 #### [facility] Laboratory [address] [place] [address] RBC (Bld) [#/Vol] 3.4 E12/L Low 4.3-5.9 [facility] Comment on above: Performed By: #### 2 661333 #### [facility] Laboratory [address] [place] [address] WBC corrected for nucl RBC Auto (Bld) [#/Vol] 7.7 E9/L Normal 4.0-11.0 [facility] Comment on above: Performed By: #### 2 506568 #### [facility] Laboratory [address] [place] [address] CHEMISTRYOrdered By: Autumn Renteria on 04-17-2023 U [...] Sensitivity Troponin I Instructions For Use, Jessica Monroe, November 2017) Urea nitrogen [Mass/Vol] 36 mg/dL High 5 - 21 mg/dL Remisol Chem Urea nitrogen/Creatinine [Mass ratio] 21 mg/mg High 10 - 20 Remisol Chem COAGULATIONOrdered By: Hansa Grigsby on 04-17-2023 aPTT Coag (PPP) [Time] 32.6 s Normal 25.1 - 36.5 second(s) [facility] Auto Coag Comment on above: Interpretive Data: [...] the same coagulation reagent and instrumentation as [facility]. Currently there are no coagulation studies available worldwide for children to 14 days, and no normal ranges. Heparin therapeutic range (represented by Anti-Factor Xa activity of 0.2 - 0.4 U/mL) corresponds to PTT of 56.6 - 109.0 sec. INR Coag (PPP) [Relative time] 1.2 {INR} Invalid Interpretation Code [facility] Auto Coag Comment on above: Interpretive Data: I NR results are specifically intended to assess patients stabilized on long-term Anticoagulation therapy suggested INR s Less Intensive Anticoagulation 2.0 3.0 Conventional Range 3.0 4.5 PT Coag (PPP) [Time] 13.1 s High 9.4 - 1 2.5 second(s) [facility] Auto Coag Comment on above: Interpretive Data: [...] the same coagulation reagent and instrumentation as [facility]. Currently there are no coagulation studies available worldwide for children to 14 days, and no normal ranges. Consent for Treatmenton 03-28 Consent for Treatment [id number] #1.00TIFF Normal [facility] Ethanolon 04-17-2023 Ethanol Lvl 83 mg/dL Abnormal <=7 [facility] Comment on above: Result Comment: Crit ical Result S_ETOH:83 Called to and read back by: TAI BARBA at: 04/17/2023 21:19:24 by:CADY RENTERIA Critical Result Verified by Repeat Analysis Performed By: #### 2 [id number] #### [facility] Laboratory [address] [place] [address] HEMATOLOGYOrdered By: SYSTEM SYSTEM on 04-17-2023 Basophils/100 WBC (Bld) 1.2 % Normal 0.0 - 2.0 % [facility] HemeAutoSS Basophils/Leukocytes Auto (Bld) [Pure # fraction] [...] 7.7 E9/L Normal 4.0 - 11.0 E9/L FT HemeAutoSS Hep Func Panelon 04-17-2023 Albumin [Mass/Vol] 4.1 g/dL Normal 3.3-5.0 [facility] Comment on above: Performed By: #### 2 233486 #### [facility] Laboratory [address] [place] [address] Albumin/Globulin [Mass ratio] 1.2 {ratio} Normal 1.1-2.2 [facility] Comment on above: Performed By: #### 2 642365 #### [facility] Laboratory [address] [place] [address] Alk Phos 68 Int._Unit/L Normal 21-98 [facility] Comment on above: Performed By: #### 2 103112 #### [facility] Laboratory [address] [place] [address] ALT 14 Int._Unit/L Normal 6-46 [facility] Comment on above: Performed By: #### 2 085471 #### [facility] Laboratory [address] [place] [address] AST 14 Int._Unit/L Normal 5-43 [facility] Comment on above: Performed By: #### 2 174609 #### [facility] Laboratory [address] [place] [address] Bili Direct 0.2 mg/dL Normal 0.0-0.4 [facility] Comment on above: Performed By: #### 2 449894 #### [facility] Laboratory [address] [place] [address] Bili Indirect 0.6 mg/dL Normal 0.1-0.9 [facility] Comment on above: Performed By: #### 2 [id number] #### [facility] [address] [place] [address] Bili Total 0.8 mg/dL Normal 0.0-1.1 [facility] Comment on above: Performed By: #### 2 [id number] #### [facility] [address] [place] [address] Globulin (S) [Mass/Vol] 3.4 g/dL Normal 1.4-4.0 [facility] Comment on above: Performed By: #### 2 [id number] #### [facility] [address] [place] [address] Protein [Mass/Vol] 7.5 g/dL Normal 6.0-7.8 [facility] Comment on above: Performed By: #### 2 [id number] #### [facility] [address] [place] [address] Lactic Acidon 04-17-2023 Lactic Acid Lvl 2.1 mmol/L Normal 0.5-2.2 [facility] Comment on above: Performed By: #### 2 [id number] #### [facility] [address] [place] [address] Lipase Levelon 04-17-2023 Lipase Lvl 235 unit/L High 13-58 [facility] Comment on above: Performed By: #### 1 [id number], [id number], [id number], [id number], [id number], [id number] ####[facility] [id number] [place] [address] PT & PTTon 04-17-2023 aPTT Coag (PPP) [Time] 32.6 second(s) Normal 25.1-36.5 [facility] Comment on above: Result Comment: [...] the same coagulation reagent and instrumentation as [facility]. Currently there are no coagulation studies available worldwide for children to 14 days, and no normal ranges. Heparin therapeutic range (represented by Anti-Factor Xa activity of 0.2 - 0.4 U/mL) corresponds to PTT of 56.6 - 109.0 sec. Performed By: #### 2 [id number] #### [facility] [address] [place] [address] INR Coag (PPP) [Relative time] 1.2 {INR} Invalid Interpretation Code [facility] Comment on above: Result Comment: INR results are specifically intended to assess patients stabilized on long-term Anticoagulation therapy suggested INR?s ?Less Intensive Anticoagulation? 2.0 ? 3.0 Conventional Range 3.0 ? 4.5 Performed By: #### 2 [id number] #### [facility] [address] [place] [address] PT Coag (PPP) [Time] 13.1 second(s) High 9.4-12.5 [facility] Comment on above: Result Comment: [...] the same coagulation reagent and instrumentation as [facility]. Currently there are no coagulation studies available worldwide for children to 14 days, and no normal ranges. Performed By: #### 2 [id number] #### [facility] [address] [place] [address] Pre-Arrival Noteon 3 Pre-Arrival Note Pre-Arrival Summary Name: , BEA Current Date: 04/17/2023 20:28:42 EST Gender: Female Date of : Age: 73 Pre-Arrival Type: EMS ETA: 04/17/2023 20:52:00 EST Primary Care Physician: Presenting Problem: Fall, Hit head Pre-Arrival User: Bernadine Littlejohn RN Referring Source: Location: [place] Completion Date/Time: 04/17/2023 20:22:00 [facility] Emergency Department Pre-Hospital Report Form Vital Signs: 107/54, 80HR, 97% RA Pre-Hospital Report: Fall, Hit head on table Treatment in Route: 2LAC Response to Treatment: Misc. Issues: Normal [facility] Troponinon 04-17-2023 Troponin 8.90 pg/mL Low 10.10-27.10 [facility] Comment on above: Result Comment: The 95% CI (Confidence Interval) PPV (Positive Predictive Value) for myocardial infarction in females is 38 pg/mL, in males 51 pg/mL. The results should be used in conjunction with clinical conditions of myocardial infarction. (Access High Sensitivity Troponin I Instructions For Use, Jessica Monroe, November 2017) Performed By: #### 2 [id number] #### [facility] [address] [place] [address] eGFRon 04-17-2023 eGFR 31 mL/min/1.73 m2 Low >=59 [facility] Comment on above: Order Comment: Order added by Discern Expert. Performed By: #### 1 [id number], [id number], [id number], [id number] ####[facility] [id number] [place] [address] GLYCOHEMOGLOBIN A1Con 2022 ADA RECOMMENDATION SEE BELOW Normal [facility] Comment on above: Result Comment: ADA RECOMMENDED LIMIT 4.0 - 6.0 ADA THERAPEUTIC TARGET < 7.0 ACTION SUGGESTED > 7.0 Performed By: #### A 1C #### [facility] [address] [address] [address] Vanessa Denis Glucose [Mass/Vol] 223 mg/dL Normal [facility] Comment on above: Performed By: #### A 1C #### [facility] [address] [address] [address] Vanessa Denis HbA1c (Bld) [Mass fraction] 9.4 % Critically high 4.5-6.2 [facility] Comment on above: Performed By: #### A 1C #### [facility] [address] [address] [address] Vanessa Denis PROF 14(COMP METB)on 023 Albumin [Mass/Vol] 3.4 g/dL Normal 3.4-5.0 [facility] Comment on above: Performed By: #### C MP #### [facility] [address] [place] [address] Dr. Vanessa Denis Albumin/Globulin [Mass ratio] 0.8 {ratio} Normal [facility] Comment on above: Performed By: #### C MP #### [facility] [address] [place] [address] Dr. Vanessa Denis ALP [Catalytic activity/Vol] 71 U/L Normal 46-116 [facility] Comment on above: Performed By: #### C MP #### [facility] [address] [place] [address] Dr. Vanessa Denis ALT [Catalytic activity/Vol] 25 U/L Normal 14-59 [facility] Comment on above: Performed By: #### C MP #### [facility] [address] [place] [address] Dr. Vanessa Denis Anion gap [Moles/Vol] 6.7 mmol/L Normal [facility] Comment on above: Performed By: #### C MP #### [facility] [address] [place] [address] Dr. Vanessa Denis AST [Catalytic activity/Vol] 19 U/L Normal 15-37 [facility] Comment on above: Performed By: #### C MP #### [facility] [address] [place] [address] Dr. Vanessa Denis Bilirubin [Mass/Vol] 0.9 mg/dL Normal 0.2-1.0 [facility] Comment on above: Performed By: #### C MP #### [facility] [address] [address] [address] Vanessa Denis Calcium [Mass/Vol] 9.5 mg/dL Normal 8.5-10.1 [facility] Comment on above: Performed By: #### C MP #### [facility] [address] [place] [address] Dr. Vanessa Denis Chloride [Moles/Vol] 102 mmol/L Normal 98-107 [facility] Comment on above: Performed By: #### C MP #### [facility] [address] [address] [address] Vanessa Denis CO2 [Moles/Vol] 35.2 mmol/L Critically high 21.0-32.0 [facility] Comment on above: Performed By: #### C MP #### [facility] [address] [place] [address] Dr. Vanessa Denis Creatinine [Mass/Vol] 1.23 mg/dL Critically high 0.55-1.02 [facility] Comment on above: Performed By: #### C MP #### [facility] [address] [place] [address] Dr. Vanessa Denis EGFR-AF GAMBIAN 52 mL/min/1.73m2 Critically low >=60 [facility] Comment on above: Performed By: #### C MP #### [facility] [address] [place] [address] Dr. Vanessa Denis EGFR-NON AF GAMBIAN 43 mL/min/1.73m2 Critically low >=60 [facility] Comment on above: Performed By: #### C MP #### [facility] [address] [place] [address] Dr. Vanessa Denis Globulin (S) [Mass/Vol] 4.1 g/dL Normal [facility] Comment on above: Performed By: #### C MP #### [facility] [address] [place] [address] Dr. Vanessa Denis Glucose [Mass/Vol] 267 mg/dL Critically high 74-106 T [facility] Comment on above: Performed By: #### C MP #### [facility] [address] [place] [address] Dr. Vanessa Denis Potassium [Moles/Vol] 4.9 mmol/L Normal 3.5-5.1 [facility] Comment on above: Performed By: #### C MP #### [facility] [address] [address] [address] Vanessa Denis Protein [Mass/Vol] 7.5 g/dL Normal 6.4-8.2 [facility] Comment on above: Performed By: #### C MP #### [facility] [address] [address] [address] Vanessa Denis Sodium [Moles/Vol] 139 mmol/L Normal 136-145 [facility] Comment on above: Performed By: #### C MP #### [facility] [address] [address] [address] Vanessa Denis Urea nitrogen [Mass/Vol] 26.0 mg/dL Critically high 7.0-18.0 [facility] Comment on above: Performed By: #### C MP #### [facility] [address] [place] [address] Dr. Vanessa Denis Urea nitrogen/Creatinine [Mass ratio] 21.1 mg/mg Normal [facility] Comment on above: Performed By: #### C MP #### [facility] [address] [place] [address] Dr. Vanessa Denis CTA CHEST WO W [...] TWYLA CONTEH Date: 2022-05-30 14:23 Normal [facility] GLYCOHEMOGLOBIN A1Con 2022 ADA RECOMMENDATION SEE BELOW Normal [facility] Comment on above: Result Comment: ADA RECOMMENDED LIMIT 4.0 - 6.0 ADA THERAPEUTIC TARGET < 7.0 ACTION SUGGESTED > 7.0 Performed By: #### A 1C #### [facility] [address] [place] [address] Dr. Vanessa Denis Glucose [Mass/Vol] 203 mg/dL Normal [facility] Comment on above: Performed By: #### A 1C #### [facility] [address] [place] [address] Dr. Vanessa Denis HbA1c (Bld) [Mass fraction] 8.7 % Critically high 4.5-6.2 [facility] Comment on above: Performed By: #### A 1C #### [facility] [address] [place] [address] Dr. Vanessa Denis HEMOGRAM AND PLATELon 2022 Hematocrit (Bld) [Volume fraction] 45.4 % Normal 36.0-48.0 [facility] Comment on above: Performed By: #### H H #### [facility] [address] [place] [address] Dr. Vanessa Denis Hemoglobin (Bld) [Mass/Vol] 14.5 g/dL Normal 12.0-16.0 [facility] Comment on above: Performed By: #### H H #### [facility] [address] [place] [address] Dr. Vanessa Denis MCH (RBC) [Entitic mass] 29.0 pg Normal 26.7-34.0 [facility] Comment on above: Performed By: #### H H #### [facility] [address] [place] [address] Dr. Vanessa Denis MCHC (RBC) [Mass/Vol] 31.9 g/dL Normal 29.9-35.2 [facility] Comment on above: Performed By: #### H H #### [facility] [address] [address] [address] Vanessa Denis MCV (RBC) [Entitic vol] 90.8 fL Normal 81.0-99.0 [facility] Comment on above: Performed By: #### H H #### [facility] [address] [address] [address] Vanessa Denis PLT 164 103/ul Normal 150-450 [facility] Comment on above: Performed By: #### H H #### [facility] [address] [address] [address] Vanessa Denis RBC 5.00 106/ul Normal 4.20-5.40 [facility] Comment on above: Performed By: #### H H #### [facility] [address] [address] [address] Vanessa Denis WBC 7.6 103/ul Normal 4.0-11.0 [facility] Comment on above: Performed By: #### H H #### [facility] [address] [place] [address] Dr. Vanessa Denis LIPID PROFILEon 05-30-2022 CHOL-HDL RATIO NORM SEE BELOW Normal [facility] Comment on above: Result Comment: 3.3 - 4.4 LOW RISK 4.4 - 7.1 AVERAGE RISK 7.1 - 11.0 MODERATE RISK >11.0 HIGH RISK Performed By: #### L IPID, TSH #### [facility] [address] [place] [address] Dr. Vanessa Denis Cholesterol [Mass/Vol] 110 mg/dL Normal <=200 Th [facility] Comment on above: Performed By: #### L IPID, TSH #### [facility] [address] [place] [address] Dr. Vanessa Denis Cholesterol in HDL [Mass/Vol] 51 mg/dL Normal 40-60 [facility] Comment on above: Performed By: #### L IPID, TSH #### [facility] [address] [address] [address] Vanessa Denis Cholesterol in LDL [Mass/Vol] 39.4 mg/dL Normal [facility] Comment on above: Performed By: #### L IPID, TSH #### [facility] [address] [place] [address] Dr. Vanessa Denis Cholesterol.total/Chol esterol in HDL [Mass ratio] 2.2 {ratio} Normal [facility] Comment on above: Performed By: #### L IPID, TSH #### [facility] [address] [address] [address] Vanessa Denis HDL NORMAL > or = 60 mg/dl - LOW CARDIOVASCULAR RISK <40 mg/dl - HIGH CARDIOVASCULAR RISK Normal [facility] Comment on above: Performed By: #### L IPID, TSH #### [facility] [address] [place] [address] Dr. Vanessa Denis LDL CALC NORMAL SEE BELOW Normal [facility] Comment on above: Result Comment: <100 mg/dl OPTIMAL 100 - 129 mg/dl NEAR OR ABOVE OPTIMAL 130 - 159 mg/dl BORDERLINE HIGH 160 - 189 mg/dl HIGH >190 mg/dl VERY HIGH Performed By: #### L IPID, TSH #### [facility] [address] [place] [address] Dr. Vanessa Denis Triglyceride [Mass/Vol] 98 mg/dL Normal <=150 [facility] Comment on above: Performed By: #### L IPID, TSH #### [facility] [address] [place] [address] Dr. Vanessa Denis VLDL CALC 19.6 mg/dL Normal [facility] Comment on above: Performed By: #### L IPID, TSH #### [facility] [address] [place] [address] Dr. Vanessa Denis PROF 14(COMP METB)on 023 Albumin [Mass/Vol] 3.4 g/dL Normal 3.4-5.0 [facility] Comment on above: Performed By: #### C MP #### [facility] [address] [place] [address] Dr. Vanessa Denis Albumin/Globulin [Mass ratio] 0.9 {ratio} Normal [facility] Comment on above: Performed By: #### C MP #### [facility] [address] [address] [address] Vanessa Denis ALP [Catalytic activity/Vol] 68 U/L Normal 46-116 [facility] Comment on above: Performed By: #### C MP #### [facility] [address] [address] [address] Vanessa Denis ALT [Catalytic activity/Vol] 23 U/L Normal 14-59 [facility] Comment on above: Performed By: #### C MP #### [facility] [address] [address] [address] Vanessa Denis Anion gap [Moles/Vol] 10.1 mmol/L Normal [facility] Comment on above: Performed By: #### C MP #### [facility] [address] [place] [address] Dr. Vanessa Denis AST [Catalytic activity/Vol] 21 U/L Normal 15-37 [facility] Comment on above: Performed By: #### C MP #### [facility] [address] [place] [address] Dr. Vanessa Denis Bilirubin [Mass/Vol] 0.9 mg/dL Normal 0.2-1.0 [facility] Comment on above: Performed By: #### C MP #### [facility] [address] [place] [address] Dr. Vanessa Denis Calcium [Mass/Vol] 9.2 mg/dL Normal 8.5-10.1 [facility] Comment on above: Performed By: #### C MP #### [facility] [address] [place] [address] Dr. Vanessa Denis Chloride [Moles/Vol] 101 mmol/L Normal 98-107 [facility] Comment on above: Performed By: #### C MP #### [facility] [address] [place] [address] Dr. Vanessa Denis CO2 [Moles/Vol] 31.5 mmol/L Normal 21.0-32.0 [facility] Comment on above: Performed By: #### C MP #### [facility] [address] [address] [address] Vanessa Denis Creatinine [Mass/Vol] 1.15 mg/dL Critically high 0.55-1.02 [facility] Comment on above: Performed By: #### C MP #### [facility] [address] [address] [address] Vanessa Denis EGFR-AF GAMBIAN 56 mL/min/1.73m2 Critically low >=60 [facility] Comment on above: Performed By: #### C MP #### [facility] [address] [address] [address] Vanessa Denis EGFR-NON AF GAMBIAN 46 mL/min/1.73m2 Critically low >=60 [facility] Comment on above: Performed By: #### C MP #### [facility] [address] [address] [address] Vanessa Denis Globulin (S) [Mass/Vol] 4.0 g/dL Normal [facility] Comment on above: Performed By: #### C MP #### [facility] [address] [address] [address] Vanessa Denis Glucose [Mass/Vol] 254 mg/dL Critically high 74-106 T [facility] Comment on above: Performed By: #### C MP #### [facility] [address] [address] [address] Vanessa Denis Potassium [Moles/Vol] 4.6 mmol/L Normal 3.5-5.1 [facility] Comment on above: Performed By: #### C MP #### [facility] [address] [address] [address] Vanessa Denis Protein [Mass/Vol] 7.4 g/dL Normal 6.4-8.2 [facility] Comment on above: Performed By: #### C MP #### [facility] [address] [address] [address] Vanessa Denis Sodium [Moles/Vol] 138 mmol/L Normal 136-145 [facility] Comment on above: Performed By: #### C MP #### [facility] [address] [address] [address] Vanessa Denis Urea nitrogen [Mass/Vol] 24.0 mg/dL Critically high 7.0-18.0 [facility] Comment on above: Performed By: #### C MP #### [facility] [address] [place] [address] Dr. Vanessa Denis Urea nitrogen/Creatinine [Mass ratio] 20.9 mg/mg Normal [facility] Comment on above: Performed By: #### C MP #### [facility] [address] [address] [address] Vanessa Denis TSHon 05-30-2022 TSH 2.067 uIU/mL Normal 0.358-3.740 [facility] Comment on above: Performed By: #### L IPID, TSH #### [facility] [address] [place] [address] Dr. Vanessa Denis Vital Signs Date Time Vital Sign Value Performing Clinician Facility 06-24-2023 13:52-0500 Blood Pressure Location Doug MACARIOL [facility] 06-24-2023 13:52-0500 Diastolic blood pressure 78 mm[Hg] Doug NILL [facility] 06-24-2023 13:52-0500 Heart rate 68 /min Doug NILL [facility] 06-24-2023 13:52-0500 Respiratory rate 16 /min Doug SORTOL [facility] 06-24-2023 13:52-0500 Systolic blood pressure 110 mm[Hg] Doug NILL [facility] 06-09-2023 11:52-0500 Body height 152.4 cm Dg Proctor MD Work Phone: [facility] 06-09-2023 11:52-0500 Body mass index (BMI) [Ratio] 32.42 kg/m2 Dg Proctor MD Work Phone: [facility] 06-09-2023 11:52-0500 Body weight 75.3 kg Dg Proctor MD Work Phone: [facility] 04-18-2023 00:39-0500 Diastolic blood pressure 95 mm[Hg] Kaylinn Dokken [facility] 04-18-2023 00:39-0500 Heart rate 74 /min Kaylinn Dokken [facility] 04-18-2023 00:39-0500 Mean blood pressure 117 mm[Hg] Kaylinn Dokken [facility] 04-18-2023 00:39-0500 Respiratory rate 22 /min Kaylinn Dokken [facility] 04-18-2023 00:39-0500 SaO2% (BldA) [Mass fraction] 97 % Kaylinn Dokken [facility] 04-18-2023 00:39-0500 Systolic blood pressure 161 mm[Hg] Kaylinn Dokken [facility] 04-17-2023 23:43-0500 Diastolic blood pressure 71 mm[Hg] Kaylinn Dokken [facility] 04-17-2023 23:43-0500 Heart rate 63 /min Kaylinn Dokken [facility] 04-17-2023 23:43-0500 Mean blood pressure 98 mm[Hg] Kaylinn Dokken [facility] 04-17-2023 23:43-0500 Respiratory rate 15 /min Kaylinn Dokken [facility] 04-17-2023 23:43-0500 SaO2% (BldA) [Mass fraction] 96 % Kaylinn Dokken [facility] 04-17-2023 23:43-0500 Systolic blood pressure 151 mm[Hg] Kaylinn Dokken [facility] 04-17-2023 23:23-0500 Body temperature 97.88 [degF] Kaylinn Dokken [facility] 04-17-2023 23:23-0500 Diastolic blood pressure 82 mm[Hg] Kaylinn Dokken [facility] 04-17-2023 23:23-0500 Heart rate 68 /min Kaylinn Dokken [facility] 04-17-2023 23:23-0500 Mean blood pressure 99 mm[Hg] Kaylinn Dokken [facility] 04-17-2023 23:23-0500 Respiratory rate 20 /min Kaylinn Dokken [facility] 04-17-2023 23:23-0500 SaO2% (BldA) [Mass fraction] 94 % Kaylinn Dokken [facility] 04-17-2023 23:23-0500 Systolic blood pressure 134 mm[Hg] Kaylinn Dokken [facility] 04-17-2023 22:39-0500 Respiratory rate 18 /min Kaylinn Dokken [facility] 04-17-2023 21:50-0500 Respiratory rate 18 /min Kaylinn Dokken [facility] 04-17-2023 20:50-0500 Body temperature 98.06 [degF] Kaylinn Dokken [facility] 04-17-2023 20:50-0500 Heart rate 72 /min Kaylinn Dokken [facility] 04-17-2023 20:50-0500 Respiratory rate 18 /min Nancy Stern [facility] 04-17-2023 20:29-0500 Body temperature 98.06 [degF] Nancy Stern [facility] 04-17-2023 20:29-0500 Heart rate 76 /min Nancy Stern [facility] 02-23-2023 13:40-0400 Body height 152.4 cm Nicolás Maura Other [employer] Other 02-23-2023 13:40-0400 Body mass index (BMI) [Ratio] 34.72 kg/m2 Nicolás Maura Other [employer] Other 02-23-2023 13:40-0400 Body temperature 96.8 [degF] Nicolás Maura Other [employer] Other 02-23-2023 13:40-0400 Body weight 80.65 kg Nicolás Maura Other [employer] Other 02-23-2023 13:40-0400 Diastolic blood pressure 82 mm[Hg] Nicolás Maura Other [employer] Other 02-23-2023 13:40-0400 Respiratory rate 20 /min Nicolás Maura Other [employer] Other 02-23-2023 13:40-0400 SaO2% (BldA) [Mass fraction] 99 % Nicolás Maura Other [employer] Other 02-23-2023 13:40-0400 Systolic blood pressure 132 mm[Hg] Nicolás Maura Other [employer] Other 12-31-2022 09:00-0400 Body height 152.4 cm Nicolás Maura Other [employer] Other 12-31-2022 09:00-0400 Body mass index (BMI) [Ratio] 32.14 kg/m2 Nicolás Maura Other [employer] Other 12-31-2022 09:00-0400 Body temperature 96.3 [degF] Nicolás Maura Other [employer] Other 12-31-2022 09:00-0400 Body weight 74.66 kg Nicolás Maura Other [employer] Other 12-31-2022 09:00-0400 Diastolic blood pressure 56 mm[Hg] Nicolás Maura Other [employer] Other 12-31-2022 09:00-0400 Respiratory rate 20 /min Nicolás Maura Other [employer] Other 12-31-2022 09:00-0400 SaO2% (BldA) [Mass fraction] 98 % Nicolás Maura Other [employer] Other 12-31-2022 09:00-0400 Systolic blood pressure 91 mm[Hg] Nicolás Maura Other [employer] Other Encounters Encounter Date Encounter Type Care Provider Facility Start: 10-13-2023 ambulatory KEN Crow ty:[facility] Start: 09-08-2023 End: 09-08-2023 ambulatory DG Yu BEDevin Not Available Start: 06-30-2023 End: 07-01-2023 ambulatory MD NICOLÁS PERRY Facility:[facility] Start: 06-24-2023 End: 06-25-2023 ambulatory Doug FERNANDEZ Facility:[facility] Start: 06-24-2023 End: 06-24-2023 Patient encounter procedure Doug Karli FERNANDEZ General Surgery [facility]/Janell Olievr Start: 06-09-2023 Bamboo flowsheet Dg Proctor MD Work Phone: [facility] Start: 06-09-2023 Bamboo flowsheet Dg Proctor MD Work Phone: [facility] Start: 06-09-2023 End: 06-09-2023 ambulatory DG Yu BEDevin Not Available Start: 06-09-2023 End: 06-09-2023 Office outpatient new 45 minutes Dg Proctor MD Work Phone: [facility] Comment on above: Sequelae of cerebral infarction (Primary Dx); Polyneuropathy Start: 05-25-2023 ambulatory Nancy Stern Facility :[facility] Start: 05-21-2023 End: 05-21-2023 ambulatory Nicolás Perry Other [employer] Other Start: 05-21-2023 Office outpatient vi sit 25 minutes Nicolás Perry [facility] Start: 04-17-2023 End: 04-18-2023 Emergency department patient visit Nancy Stern Facility[place] Start: 04-17-2023 End: 04-18-2023 Emergency department patient visit Nancy Stern [facility] Start: 04-08-2023 End: 04-08-2023 ambulatory Nicolás Perry Other [employer] Other Start: 04-08-2023 Telephone encounter Nicolás Maura [facility] Start: 02-27-2023 ambulatory Karynadarlene juliajarrod Facility :[facility] Start: 02-23-2023 End: 02-23-2023 ambulatory Nicolás Maura Other [employer] Other Start: 02-23-2023 Office outpatient vi sit 25 minutes Nicolás Maura [facility] Start: 12-31-2022 End: 12-31-2022 ambulatory Nicolás Maura Other [employer] Other Start: 12-31-2022 Office outpatient ne w 45 minutes Nicolás Maura [facility] Start: 08-13-2022 End: 08-13-2022 ambulatory DARRION SHAMMO Facility:[facility] Start: 08-11-2022 End: 08-11-2022 ambulatory DARRION SHAMMO Facility:[facility] Start: 05-30-2022 End: 05-31-2022 ambulatory DARRION SHAMMO Facility:[facility] Start: 05-28-2022 End: 05-28-[address] JENIFER CASTILLO Facility:[facility] Start: 07-08-2021 End: 02-03-2022 ambulatory [facility] Procedures Date Procedure Procedure Detail Performing Clinician Start: 05-19-2013 Colonoscopy Doug CAMILO Colonoscopy Karynanimishakrystal Medinajuliajarrod Dilation of urethra Doug SORTOL Division of Left Ank le Tendon, Open Approach Doug SORTOL Excision of Left Tar julia, Open Approach Doug SORTOL Fusion of Left Tarsa l Joint with Internal Fixation Device, Open Approach oDug SORTOL Repair of cleft palate Sampson nancy FERNANDEZ Tonsillectomy Karynadarlene liz Tonsillectomy and adenoidectomy Doug FERNANDEZ Plan of [...] procedure 09/08/2023 1:45 PM EDT Office Visit [facility] [address] [place] [address] Dg Proctor MD [address] [place] [address] [facility] Start: 1950 Medicare Annual Well ness (AWV) Medicare Annual Wellness (AWV) [facility] Start: 1950 Screening for malign ant neoplasm of colon [facility] Immunizations Immunization Date Immunization Notes Care Provider Fa cility 02-19-2023 influenza virus vaccine, unspecified formulation Doug FERNANDEZ [facility] [place] 02-06-2022 SARS-CoV-2 (COVID-19 ) mRNAMUL.[id number] Doug FERNANDEZ [facility] [place] 05-06-2021 SARS-CoV-2 (COVID-19 ) mRNA BNT-162b2 vax Doug FERNANDEZ [facility] [place] 07-06-2020 SARS-CoV-2 (COVID-19 ) Ad26 vaccine, recombinant Doug FERNANDEZ [facility] [place] Payers Date Payer Category Payer Medicaid MEDICAID [facility] [id number] 2021-Present [phone] [address] [place] [address] Medicaid [id number] 2020 Private Health Insurance [id number] 2013 Medicare MEDICARE MEDICAR E PART B [id number] 2013-[place] [address] Medicare [id number] 1959 Medicaid [id number] 1959 Medicare [id number] 1948 Unknown [id number] 93 1948 Unknown [id number] [id number] 93 1948 Unknown [id number] 2.16.840.1.775822.3.579.2.5 93 1948 Unknown [id number] 2.16.840.1.584587.3.579.2.5 93 1948 Unknown [id number] 2.16.840.1.898782.3.579.2.5 93 1948 Unknown [id number] 2.16.840.1.528069.3.579.2.7 27 1948 Unknown [id number] 2.16.840.1.537951.3.579.2.7 27 1948 Unknown [id number] 2.16.840.1.828538.3.579.2.7 27 1948 Unknown [id number] 2.16.840.1.448674.3.579.2.7 27 1948 Unknown [id number] 2.16.840.1.459222.3.579.2.7 27 1948 Unknown [id number] 2.16.840.1.750912.3.579.2.1 259 1948 Unknown [id number] [id number] 259 Social History Date Type Detail Facility Unknown if ever smoked [employer] Other Sex Assigned At [facility] Start: 07-10-2020 End: 06-24-2023 Tobacco smoking status Ex-smoker (finding) [facility] Tobacco smoking status WAIS Tobacco smoking consumption unknown [facility] Start: 1950 Sex Assigned At Not on file N [facility] Tobacco smoking status Never [facility] [place] Functional Status Date Assessment Result Facility 06-24-2023 Functional Status N/A [facility] [place] 04-17-2023 Functional Status N/A [facility] Clinical Notes 12-31-2022 to 06-24-2023 Dg Proctor [...] mg= 1 tab(s), Oral, Daily Vitamin D3, 37007 unit(s), Oral, qWeek Zoloft 25 mg Tab, [...] virus vaccine, inactivated 02/19/2023 Recorded SARS-CoV-2 (COVID-19) mRNAMUL.ORD![id number] 02/06/2022 Recorded SARS-CoV-2 (COVID-19) mRNA BNT-162b2 vax (more content not included)... [facility] Comment on above: Result Comment: Elec tronically Signed By: REBECCA KILLIAN, Doug Dominique\Date and Time Signed: 06/24/23 14:18 EST 06-09-2023 History of Present illness Narrative Associated Problem(s): Polyneuropathy TSH + fT4. Emphasized good A1c control. Associated Problem(s): Sequelae of cerebral infarction Echo c bubble study. ([place]). US carotids ([facility]). (Continue ASA.) Images from the original note were not included. Outpatient Progress Note Prev Appt: Visit date not found Chief Complaint Patient presents with Memory Loss Assessment and Plan - Sequelae of cerebral infarction Echo c bubble study. ([place] [facility] [place]). US carotids ([facility]). (Continue ASA.) Polyneuropathy TSH [...] memory to pt. Stroke - None further. 2018 Nov, hemipar R face & hand. -> [facility]. Known DM. Onset Semeiology Imaging US carotids (03/2020, [place]) - < 50% B CT head (12/2019, [place]) - neg Testing Surgery Failed Dx PN [...] mouth in the morning. D3-50 1.25 MG (36869 UT) capsule ferrous sulfate 325 (65 Fe) [...] as of 06/09/2023. documented in this encounter [facility] 05-21-2023 Evaluation note Encounter Date Diagnosis Assessment [...] of any breach, fraud, or malicious third constitution party actors and no personal patient information was compromised. [employer] Other [id number] Hospital Discharge instructions Patient Education 04/18/2023 00:43:25 [...] homework. ?Working on the computer, using social [employer] and texting. Avoid activities that could cause another head injury, such as playing sports, until your health care provider approves. Having another head injury, especially before the first one has healed, can bedangerous. Ask your health care provider when it is safe for you to return to your regular activities, including work or school. Ask your health care provider for a [id number] plan for gradually returning to activities. Ask [...] your friends, family, a trusted colleague, and vegetable worker about your injury, symptoms, and restrictions. Have them watch for any new or worsening problems. General instructions Take ojsp-ter-mstxyav and prescription medicines only as told by [...] provider. Document Revised: 02/24/2020 Document Reviewed: 02/24/2020 [employer] Patient Education 2022 CH4e. Follow Up Care 04/17/2023 20:26:54 With:RICHARD VARGAS Address: [address] [place] [address] Business (1) When:04/20/2023 Comments:Follow-up with your primary care provider in 3 to 5 days. If symptoms worsen, do not improve, or new symptoms arise please report back to emergency department for further evaluation. [facility]12-22-2023 Evaluation + Plan noteExtracted from: [...] Date:06/30/2023 10:00:00 AM Scheduled Provider:KEN OZUNA PA-C Location:[facility] Appointment Type:URO Office Visit [facility]10-30-2023 Evaluation note* Encounter Date Diagnosis [...] recent gout flare. Continue monitor without medications. [employer] Other 09-06-2023 Evaluation note* Encounter Date Diagnosis [...] We will check also for paraproteinemia work-up. [employer] Other Evaluation + Plan note Future Appointments Appointment Date:06/30/2023 10:00:00 AM Scheduled Provider:KEN OZUNA PA-C Location:[facility] Appointment Type:URO Office Visit General Surgery [place] Evaluation noteNo InformationNort [employer] Other Evaluation note* Diagnosis Sequelae of cerebral [...] TONSILLECTOMY AND ADENOIDECTOMY Hospitalization History SEE ABOVE [employer] Other History general Narrative - Reported* Type [...] TONSILLECTOMY AND ADENOIDECTOMY Hospitalization History SEE ABOVE [employer] Other Hospital course Narrative No data available for this section [facility] No data available for this section General Surgery [place] Progress note No data available for this section [facility] Summary Purpose Family History No [...] section and content) DATE CREATED AUTHOR 02/03/2022 [facility] DATE CREATED AUTHOR AUTHOR'S ORGANIZ ATION 08/22/2022 [facility] DATE CREATED AUTHOR AUTHOR'S ORGANIZ ATION 07/20/2023 [facility] DATE CREATED AUTHOR AUTHOR'S ORGANIZ ATION 09/10/2023 [facility] EPIC REASON FOR VISIT (unrecogniz ed section and content) Reason Comments Memory Loss Patient Care team informatio n (unrecognized section and content) [employer] Relationship Specialty Start Date End Date Eduardo Atkins MD [address] [place] [address] PCP - General Family Medicine 06/09/23 FOR [...] BE BASED ON THE PRIMARY CLINICAL RECORDS. Powered by [employer] provides no warranty or guarantee of the accuracy or completeness of information in this document.
[2023-09-16 08:31] LABS: Free T4 1.01 ng/dL (0.76-1.46)
[2023-09-16 08:45] LABS: Thyroid Stimulating Hormone 2.471 uIU/mL (0.358-3.740)
== END 2023-09-16 01:59 | disposition home or self-care (01) ==
LOC: LAB 01:58
PROVIDERS: PCP Nurse Practitioner Primary Care; Visit Provider Psychiatry & Neurology Neurology
DX: R41.841 Cognitive communication deficit (principal); G62.9 Polyneuropathy, unspecified; R79.89 Other specified abnormal findings of blood chemistry; G50.9 Disorder of trigeminal nerve, unspecified; Z11.3 Encounter for screening for infections with a predominantly sexual mode of transmission; E53.1 Pyridoxine deficiency; I70.91 Generalized atherosclerosis; D51.3 Other dietary vitamin B12 deficiency anemia; M79.10 Myalgia, unspecified site; E78.5 Hyperlipidemia, unspecified
CPT/HCPCS: 36415; 84439; 84443

== ENCOUNTER 2023-10-06 07:50 | Outpatient (OUT) | payer MEDICARE, MEDICAID, SELFPAY ==
--- OUTSIDE RECORDS SUMMARY | 2023-10-06 08:13 | XMS_ITS | CCD ---
Author Organization [facility] ion [facility] Care Team Providers Care Skein Drier Name Role Phone SHAMMO, DARRION Primary Care [...] calvillo Unavailable RICHARD VARGAS Primary Care Physician [phone] Unavailable Primary Care Provider UnavailEduardo Hollis MD Primary Care Provider [phone] SHAMMO, DARRION GEE Primary Care Physician Nancy [...] as needed Orally every 4 hrs Active [id number] actuat albuterol 0.09 mg/actuat metered dose [...] Vitamin D Start: 05-28-2023 D3-50 1.25 MG (49326 UT) capsule ergocalciferol 1.25 mg oral capsule (4 sources) Provitamin D2 Compound take 1 capsule by mouth every week Vitamin D (Ergocalcifero l) 1.25 MG (15090 UT) 1 capsule Orally ONCE A WEEK [...] Vitamin D3 (2 sources) Start: 07-10-2020 take 75354 [IU] by mouth every week Vitamin D3 [...] Osteoporosis 06-10-2023 Chronic Other aftercare (1 source) alf (current) use of oral hypoglycemic drugs; Translations: [USP USE ORAL HYPOGLYCEMIC DX] Onset: 3 Episodic Other aftercare (1 source) Other terminal worker (current) drug therapy; Translations: [OTH USP CURRENT DRUG THERAPY] Onset: 3 Episodic Other [...] - Ultrasound Reporton RAD - Ultrasound Report [id number] #1.00TIFF Normal [facility] Lab Reportson 07-03-2023 Lab Reports [id number] 5#1.00TIFF Normal [facility] Lab Reports [id number] 1#1.00TIFF Normal [facility] Physician Referralon 024 Physician Referral [id number] 4#1.00TIFF Normal [facility] RAD - CT Reporton 07-03-2023 RAD - CT Report [id number] 3#1.00TIFF [facility] RAD - Ultrasound Reporton RAD - Ultrasound Report [id number] 0#1.00TIFF Normal [facility] Screenson 07-03-2023 Screens [id number] #1.00TIFF Normal [facility] Mcfp Recordson 06-30 Mcfp Records [id number] #1.00TIFF [facility] Ambulatory Visit Summaryon 0 06-30-2023 [...] Hypothyroidism Lymphed (more content not included)... Normal [facility] Patient Educationon 06-30-19 Patient Education Nutrition [...] numbers. This can be done either in Thai ([place].S[place] or metric measurements. Note that charts and online BMI calculators are available to help you find your BMI quickly and easily without having to do these calculations yourself. To calculate your BMI in Thai ([place].S[place] measurements: 1. Measure your weight in [...] for Disease Control and Prevention: www.cdc.gov ? [place] Heart Association: www.heart.org ? National Heart, Lung, and Blood [place]: www.nhlbi.nih.gov Summary ? Body mass index (BMI) is a number that is calculated from a person's weight and height. ? BMI may help estimate how much of a person's weight is composed of fat. BMI can help identify those who may be at higher risk for certain medical problems. ? BMI can be measured using Thai measurements or metric measurements. ? BMI charts are used to identify whether you are underweight, normal weight, overweight, or obese. This information is not intended to replace advice given to you by your health care provider. Make sure you discuss any questions you have with your health care provider. Document Revised: 01/04/2020 Document Reviewed: 11/11/2019 [employer] Patient Education ? 2022 [employer] [facility] Urology Office/Clinic Noteon 06-30-2023 Urology Office/Clinic [...] lowest daily dose and slowly titrate up C6jxtvi as pt tolerates. I explained the most [...] ls of procedure prior to scheduling. Ordered: 67142 Measure Post Void residual urine and/or bladder capacity by US- non-imaging E&M of Est. Patient High 40-54 Min 13026 2. Bilateral renal cysts (N28.1: Cyst of kidney, acquired) MAURA Sept 2022 tiny, simple -no additional workup needed Ordered: E&M of Est. Patient High 40-54 Min 33702 US Renal 3. Hydronephrosis, right (N13.30: Unspecified [...] E&M of Est. Patient High 40-54 Min 26166 US Renal 4. BMI 34.0-34.9,adult (Z68.34: Body mass index [BMI] 34.0-34.9, adult) healthy diet encouraged Ordered: E&M of Est. Patient High 40-54 Min 60069 Orders: Body Mass Index (BMI) documented 3008F [...] Urnls Dip Stick Auto w/o Microscopy POC 02472 Total time spent reviewing previous notes/results/test lead al documents, prepar (more content not included)... Normal [facility] Comment on above: Result Comment: Elec tronically Signed By: KEN OZUNA PA-C\.chin\Date and Time Signed: 06/30/23 12:51 EST Consent for Procedure/Surger yon 06-26-2023 Consent for Procedure/Surgery [id number] #1.00TIFF Normal [facility] Ambulatory Visit Summaryon 0 06-24-2023 Ambulatory [...] KEN OZUNA PA-C Where: [facility] Facesheeton 06-24-2023 Facesheet [id number] 9#1.00TIFF [facility] Physician Referralon 024 Physician Referral [id number] #1.00TIFF [facility] ABO/Rh History Checkon 04-18 ABO/Rh History Check Patient discharged prior Normal [facility] Comment on above: Performed By: #### 1 [id number], [id number], [id number], [id number] ####[facility] [address] [facility] [place] [address] CT Head or Brain w/o Contras ton [...] Technologist: QUINCY Technical Comments Contrast: None Normal [facility] CT Spine Cervical w/o [...] V. Transcribed by: GREG Technologist: QUINCY Normal [facility] Discharge Instructionson Discharge Instructions [id number] 8#1.00TIFF Normal [facility] ED Clinical Summaryon 2022 ED Clinical Summary [place] [address] ED Clinical Summary Person Information Name: AVILA VALENZUELA [place] Age: 73 Years : 1950 Sex: Female Language: Thai PCP: SAM KILLIAN, RICHARD Yu Marital Status: [...] 04/18/2023 00:43:24 04/18/2023 00:43:24 04/18/2023 00:43:24 ADDRESS: [address] [place] [address] [place] [id number] [facility] DOC NOTES: MEDICAL INFORMATION: Prescriptions Given: [...] Follow up: With: Address: When: RICHARD VARGAS [address] [place] [id number] [place] (1[facility] In 3 days 04/20/2023 Comments: Follow-up with your primary care provider in 3 to 5 days. If symptoms worsen, do not improve, or new symptoms arise please report back to emergency department for further evaluation. DIAGNOSIS: Closed head injury; Fall Normal [facility] ED Note-Physicianon 04-18-20 ED Note-Physician Basic Information Time Seen: Royal Sullivan PA-C 04/17/2023 20:31 Chief Complaint Pt [facility]. Pt states she [...] of Problems Differential Diagnosis: [] [facility] Data External documents reviewed: [] My EKG [...] RICHARD SAM In 3 days 04/20/2023 EST [address] [place] [address] Business (1) Additional Instructions: Follow-up with your primary care provider in 3 to 5 days. If symptoms worsen, do not improve, or new symptoms arise please report back to emergency department for further evaluation. Patient Education Head Injury, Adult Attestation Patient seen (more content not included)... Normal [facility] Comment on above: Result [...] Ask your health care provider for a clpn-re-bkio plan for gradually returning to activities. ? [...] your friends, family, a trusted colleague, and jet worker about your injury, symptoms, and restrictions. Have them watch for any new or worsening problems. General instructions ? Take hvpi-coh-pigpctv and prescription medicines only as told by your health care provider. ? Have someone stay with you for 24 hours after your head injury. This person should watch you for any changes in your symptoms and be ready to seek medical help. ? Keep all follow-up visits as told by your health care pr (more content not included)... Normal [facility] ED Patient Summaryon 023 ED Patient Summary [address] [address] Patient Discharge Instructions Person Information Name: AVILA VALENZUELA Age: 73 Years Arrival Date: 04/17/2023 20:26:34 Discharge Diagnosis: Closed head injury; Fall Primary Care Physician: RICHARD VARGAS MD Provider Information Primary Provider: Nancy Stern DO Advanced Line Repairer:None The exam and treatment you received in the Emergency Department were for an urgent problem and are not intended as complete care. It is important that you follow up with a doctor, nurse practitioner, or physician?s social worker assistant for ongoing care. If your symptoms [...] Follow-up Instructions: With: Address: When: RICHARD VARGAS [address] [place] [phone] [place] (1) In 3 days 04/20/2023 Comments: Follow-up [...] opioids can be used to help relieve vvqraqcg-fx-yugkuc pain and are often prescribed following a [...] ? If you (more content not included)... [facility] ED Traumaon 04-18-2023 ED Trauma [id number] 6#1.00TIFF [facility] Monitor Recordon 04-18-2023 Monitor Record [id number] 9#1.00TIFF Normal [facility] Monitor Record [id number] 3#1.00TIFF Normal [facility] Monitor Record [id number] 9#1.00TIFF Normal [facility] RAD - Preliminary Cat Scan R eporton 04-18-2023 RAD - Preliminary Cat Scan Report [id number] 6#1.00TIFF Normal [facility] U Drug Screenon 04-18-2023 U Amph Scr Negative Invalid Interpretation Code [facility] Comment on above: Performed By: #### 2 [id number] #### [facility] [address] [place] [address] U Cookie Scr Negative Invalid Interpretation Code [facility] Comment on above: Performed By: #### 2 [id number] #### [facility] [address] [place] [address] U Benzodia Scr Negative Invalid Interpretation Code [facility] Comment on above: Performed By: #### 2 647235 #### [facility] [address] [place] [address] U Cannab Scr Negative Invalid Interpretation Code [facility] Comment on above: Performed By: #### 2 997165 #### [facility] [address] [place] [address] U Cocaine Scr Negative Invalid Interpretation Code [facility] Comment on above: Performed By: #### 2 184108 #### [facility] [address] [place] [address] U Opiate Scr Negative Invalid Interpretation Code [facility] Comment on above: Performed By: #### 2 538749 #### [facility] [address] [place] [address] U PCP Scr Negative Invalid Interpretation Code [facility] Comment on above: Performed By: #### 2 752683 #### [facility] [address] [place] [address] ABO/Rhon 04-17-2023 ABO/Rh Positive Invalid Interpretation Code [facility] Comment on above: Performed By: #### 1 [id number], [id number], [id number], [id number] ####[facility] [address] [place] [address] ABSCon 04-17-2023 ABSC Gel Interp Negative Normal [facility] Comment on above: Performed By: #### 1 8970082, [id number], [id number], [id number] ####[facility] [address] [place] [address] Auto Diffon 04-17-2023 Basophils/100 WBC (Bld) 1.2 % Normal 0.0-2.0 [facility] Comment on above: Order Comment: Order Added by Discern Expert. Performed By: #### 2 887035 #### [facility] [address] [place] [address] Basophils/Leukocytes Auto (Bld) [Pure # fraction] 0.1 E9/L Normal 0.0-0.2 [facility] Comment on above: Order Comment: Order Added by Discern Expert. Performed By: #### 2 909082 #### [facility] [address] [place] [address] Eosinophils/100 WBC (Bld) 1.3 % Normal 0.0-8.0 [facility] Comment on above: Order Comment: Order Added by Discern Expert. Performed By: #### 2 082557 #### [facility] [address] [place] [address] Eosinophils/Leukocytes Auto (Bld) [Pure # fraction] 0.1 E9/L Normal 0.0-0.5 [facility] Comment on above: Order Comment: Order Added by Discern Expert. Performed By: #### 2 840321 #### [facility] [address] [place] [address] Lymphocytes/100 WBC (Bld) 23.6 % Normal 14.0-50.0 [facility] Comment on above: Order Comment: Order Added by Discern Expert. Performed By: #### 2 030168 #### [facility] [address] [place] [address] Lymphocytes/Leukocytes Auto (Bld) [Pure # fraction] 1.8 E9/L Normal 1.0-4.0 [facility] Comment on above: Order Comment: Order Added by Discern Expert. Performed By: #### 2 964705 #### [facility] [address] [place] [address] Monocytes/100 WBC (Bld) 10.1 % Normal 4.0-14.0 [facility] Comment on above: Order Comment: Order Added by Discern Expert. Performed By: #### 2 827771 #### [facility] [address] [place] [address] Monocytes/Leukocytes Auto (Bld) [Pure # fraction] 0.8 E9/L Normal 0.2-1.0 [facility] Comment on above: Order Comment: Order Added by Discern Expert. Performed By: #### 2 847155 #### [facility] [address] [place] [address] Neutrophils/100 WBC (Bld) 63.8 % Normal 36.0-75.0 [facility] Comment on above: Order Comment: Order Added by Discern Expert. Performed By: #### 2 212135 #### [facility] [address] [place] [address] Neutrophils/Leukocytes Auto (Bld) [Pure # fraction] 4.9 E9/L Normal 2.0-7.5 [facility] Comment on above: Order Comment: Order Added by Discern Expert. Performed By: #### 2 142662 #### [facility] [address] [place] [address] BLOOD BANKOrdered By: Karina Stafford on 04-17-2023 ABO/Rh Interp Positive Invalid Interpretation Code [facility] BB Subsection ABSC Gel Interp Negative (04/17/23 8:42 PM) Normal [facility] BB Subsection BMPon 04-17-2023 Anion gap [Moles/Vol] 14 mmol/L Normal 6-16 [facility] Comment on above: Performed By: #### 2 821250 #### [facility] [address] [place] [address] BUN/Creat Ratio 21 No Units High 10-20 [facility] Comment on above: Performed By: #### 2 544829 #### [facility] [address] [place] [address] Calcium [Mass/Vol] 9.6 mg/dL Normal 8.9-11.1 [facility] Comment on above: Performed By: #### 2 836127 #### [facility] [address] [place] [address] Chloride [Moles/Vol] 104 mmol/L Normal 101-111 [facility] Comment on above: Performed By: #### 2 052991 #### [facility] [address] [place] [address] CO2 [Moles/Vol] 28 mmol/L Normal 21-31 [facility] Comment on above: Performed By: #### 2 353224 #### [facility] [address] [place] [facility] [address] Creatinine [Mass/Vol] 1.7 mg/dL High 0.5-1.3 [facility] Comment on above: Performed By: #### 2 044125 #### [facility] [address] [facility] [place] [address] Glucose [Mass/Vol] 135 mg/dL Normal 55-199 [facility] Comment on above: Performed By: #### 2 398177 #### [facility] [address] [place] [address] Potassium [Moles/Vol] 3.7 mmol/L Normal 3.5-5.3 [facility] Comment on above: Performed By: #### 2 289417 #### [facility] [address] [place] [address] Sodium [Moles/Vol] 142 mmol/L Normal 135-145 [facility] Comment on above: Performed By: #### 2 065133 #### [facility] [address] [place] [address] Urea nitrogen [Mass/Vol] 36 mg/dL High 5-21 [facility] Comment on above: Performed By: #### 2 442162 #### [facility] [address] [place] [address] Blood Bank ID#on 04-17-2023 BBID# [id number] Invalid Interpretation Code [facility] Comment on above: Performed By: #### 1 [id number], [id number], [id number], [id number] ####[facility] [address] [place] [address] CBC w/ Auto Diffon 3 Erythrocyte distribution width (RBC) [Ratio] 13.8 % Normal 10.9-14.2 [facility] Comment on above: Performed By: #### 2 [id number] #### [facility] [address] [place] [address] Hematocrit (Bld) [Volume fraction] 31.5 % Low 34.0-46.0 [facility] Comment on above: Performed By: #### 2 945819 #### [facility] [address] [place] [address] Hemoglobin (Bld) [Mass/Vol] 10.1 g/dL Low 12.0-16.0 [facility] Comment on above: Performed By: #### 2 329386 #### [facility] [address] [place] [address] MCH (RBC) [Entitic mass] 29.4 pg Normal 27.0-34.0 [facility] Comment on above: Performed By: #### 2 427773 #### [facility] [address] [place] [address] MCHC (RBC) [Mass/Vol] 32.1 g/dL Normal 31.4-36.0 [facility] Comment on above: Performed By: #### 2 184978 #### [facility] [address] [place] [address] MCV (RBC) [Entitic vol] 91.4 fL Normal 80.0-100.0 [facility] Comment on above: Performed By: #### 2 080043 #### [facility] [address] [place] [address] Platelet mean volume (Bld) [Entitic vol] 8.9 fL Normal 6.4-10.8 [facility] Comment on above: Performed By: #### 2 861318 #### [facility] [address] [place] [address] Platelets (Bld) [#/Vol] 271.0 E9/L Normal 150.0-500.0 [facility] Comment on above: Performed By: #### 2 444339 #### [facility] [address] [place] [address] RBC (Bld) [#/Vol] 3.4 E12/L Low 4.3-5.9 [facility] Comment on above: Performed By: #### 2 990166 #### [facility] [address] [place] [address] WBC corrected for nucl RBC Auto (Bld) [#/Vol] 7.7 E9/L Normal 4.0-11.0 [facility] Comment on above: Performed By: #### 2 216210 #### [facility] [address] [place] [address] CHEMISTRYOrdered By: Autumn Renteria on 04-17-2023 U [...] 32.6 s Normal 25.1 - 36.5 second(s) [facility] Auto Coag Comment on above: Interpretive Data: [...] the same coagulation reagent and instrumentation as [facility]. Currently there are no coagulation studies available worldwide for children to 14 days, and no normal ranges. Heparin therapeutic range (represented by Anti-Factor Xa activity of 0.2 - 0.4 U/mL) corresponds to PTT of 56.6 - 109.0 sec. INR Coag (PPP) [Relative time] 1.2 {INR} Invalid Interpretation Code [facility] Auto Coag Comment on above: Interpretive Data: I NR results are specifically intended to assess patients stabilized on long-term Anticoagulation therapy suggested INR s Less Intensive Anticoagulation 2.0 3.0 Conventional Range 3.0 4.5 PT Coag (PPP) [Time] 13.1 s High 9.4 - 1 2.5 second(s) [facility] Auto Coag Comment on above: Interpretive Data: [...] the same coagulation reagent and instrumentation as [facility]. Currently there are no coagulation studies available worldwide for children to 14 days, and no normal ranges. Consent for Treatmenton 03-28 Consent for Treatment [id number] #1.00TIFF Normal [facility] Ethanolon 04-17-2023 Ethanol Lvl 83 mg/dL Abnormal <=7 [facility] Comment on above: Result Comment: Crit ical Result S_ETOH:83 Called to and read back by: TAI BARBA at: 04/17/2023 21:19:24 by:CADY RENTERIA Critical Result Verified by Repeat Analysis Performed By: #### 2 613659 #### [facility] [address] [place] [address] HEMATOLOGYOrdered By: SYSTEM SYSTEM on 04-17-2023 Basophils/100 WBC (Bld) 1.2 % Normal 0.0 - 2.0 % [facility] HemeAutoSS Basophils/Leukocytes Auto (Bld) [Pure # fraction] [...] 04-17-2023 Albumin [Mass/Vol] 4.1 g/dL Normal 3.3-5.0 [facility] Comment on above: Performed By: #### 2 094935 #### [facility] [address] [place] [address] Albumin/Globulin [Mass ratio] 1.2 {ratio} Normal 1.1-2.2 [facility] Comment on above: Performed By: #### 2 274610 #### [facility] [address] [place] [address] Alk Phos 68 Int._Unit/L Normal 21-98 [facility] Comment on above: Performed By: #### 2 450826 #### [facility] [address] [place] [address] ALT 14 Int._Unit/L Normal 6-46 [facility] Comment on above: Performed By: #### 2 810093 #### [facility] [address] [place] [address] AST 14 Int._Unit/L Normal 5-43 [facility] Comment on above: Performed By: #### 2 979181 #### [facility] [address] [place] [address] Bili Direct 0.2 mg/dL Normal 0.0-0.4 [facility] Comment on above: Performed By: #### 2 249463 #### [facility] [address] [place] [address] Bili Indirect 0.6 mg/dL Normal 0.1-0.9 [facility] Comment on above: Performed By: #### 2 006201 #### [facility] [address] [place] [address] Bili Total 0.8 mg/dL Normal 0.0-1.1 [facility] Comment on above: Performed By: #### 2 429015 #### [facility] [address] [place] [address] Globulin (S) [Mass/Vol] 3.4 g/dL Normal 1.4-4.0 [facility] Comment on above: Performed By: #### 2 130420 #### [facility] [address] [place] [address] Protein [Mass/Vol] 7.5 g/dL Normal 6.0-7.8 [facility] Comment on above: Performed By: #### 2 040661 #### [facility] [address] [place] [address] Lactic Acidon 04-17-2023 Lactic Acid Lvl 2.1 mmol/L Normal 0.5-2.2 [facility] Comment on above: Performed By: #### 2 511893 #### [facility] [address] [place] [address] Lipase Levelon 04-17-2023 Lipase Lvl 235 unit/L High 13-58 [facility] Comment on above: Performed By: #### 1 [id number], 1932925, 4434348, 7079206, 4356405, 3320700, 0481647, 52974235, 2874830 ####[facility] [address] [place] [address] PT & PTTon 04-17-2023 aPTT Coag (PPP) [Time] 32.6 second(s) Normal 25.1-36.5 [facility] Comment on above: Result [...] the same coagulation reagent and instrumentation as [facility]. Currently there are no coagulation studies available worldwide for children to 14 days, and no normal ranges. Heparin therapeutic range (represented by Anti-Factor Xa activity of 0.2 - 0.4 U/mL) corresponds to PTT of 56.6 - 109.0 sec. Performed By: #### 2 505951 #### [facility] [address] [place] [address] INR Coag (PPP) [Relative time] 1.2 {INR} Invalid Interpretation Code [facility] Comment on above: Result Comment: INR results are specifically intended to assess patients stabilized on long-term Anticoagulation therapy suggested INR?s ?Less Intensive Anticoagulation? 2.0 ? 3.0 Conventional Range 3.0 ? 4.5 Performed By: #### 2 [id number] #### [facility] [address] [place] [address] PT Coag (PPP) [Time] 13.1 second(s) High 9.4-12.5 [facility] Comment on above: Result [...] the same coagulation reagent and instrumentation as [facility]. Currently there are no coagulation studies available worldwide for children to 14 days, and no normal ranges. Performed By: #### 2 [id number] #### [facility] [address] [place] [address] Pre-Arrival Noteon 3 Pre-Arrival Note Pre-Arrival Summary Name: , BEA Current Date: 04/17/2023 20:28:42 EST Gender: Female Date of : Age: 73 Pre-Arrival Type: EMS ETA: 04/17/2023 20:52:00 EST Primary Care Physician: Presenting Problem: Fall, Hit head Pre-Arrival User: Bernadine Littlejohn RN Referring Source: Location: [place] Completion Date/Time: 04/17/2023 20:22:00 [facility] Emergency Department Pre-Hospital Report Form Vital Signs: 107/54, 80HR, 97% RA Pre-Hospital Report: Fall, Hit head on table Treatment in Route: 2LAC Response to Treatment: Misc. Issues: Normal [facility] Troponinon 04-17-2023 Troponin 8.90 pg/mL Low 10.10-27.10 [facility] Comment on above: Result Comment: The 95% CI (Confidence Interval) PPV (Positive Predictive Value) for myocardial infarction in females is 38 pg/mL, in males 51 pg/mL. The results should be used in conjunction with clinical conditions of myocardial infarction. (Access High Sensitivity Troponin I Instructions For Use, Jessica Jarrett, November 2017) Performed By: #### 2 [id number] #### [facility] [address] [place] [address] eGFRon 04-17-2023 eGFR 31 mL/min/1.73 m2 Low >=59 [facility] Comment on above: Order Comment: Order added by Discern Expert. Performed By: #### 1 [id number], [id number] ####[facility] [address] [place] [address] GLYCOHEMOGLOBIN A1Con 2022 ADA RECOMMENDATION SEE BELOW Normal [facility] Comment on above: Result Comment: ADA RECOMMENDED LIMIT 4.0 - 6.0 ADA THERAPEUTIC TARGET < 7.0 ACTION SUGGESTED > 7.0 Performed By: #### A 1C #### [facility] [address] [address] [address] Vanessa Denis Glucose [Mass/Vol] 223 mg/dL Normal [facility] Comment on above: Performed By: #### A 1C #### [facility] [address] [address] [address] Vanessa Denis HbA1c (Bld) [Mass fraction] 9.4 % Critically high 4.5-6.2 [facility] Comment on above: Performed By: #### A 1C #### [facility] [address] [address] [address] Vanessa Denis PROF 14(COMP METB)on 023 Albumin [Mass/Vol] 3.4 g/dL Normal 3.4-5.0 [facility] Comment on above: Performed By: #### C MP #### [facility] [address] [place] [address] Dr. Vanessa Denis Albumin/Globulin [Mass ratio] 0.8 {ratio} Normal [facility] Comment on above: Performed By: #### C MP #### [facility] [address] [place] [address] Dr. Vanessa Denis ALP [Catalytic activity/Vol] 71 U/L Normal 46-116 [facility] Comment on above: Performed By: #### C MP #### [facility] [address] [place] [address] Dr. Vanessa Denis ALT [Catalytic activity/Vol] 25 U/L Normal 14-59 [facility] Comment on above: Performed By: #### C MP #### [facility] [address] [place] [address] Dr. Vanessa Denis Anion gap [Moles/Vol] 6.7 mmol/L Normal [facility] Comment on above: Performed By: #### C MP #### [facility] [address] [place] [address] Dr. Vanessa Denis AST [Catalytic activity/Vol] 19 U/L Normal 15-37 [facility] Comment on above: Performed By: #### C MP #### [facility] [address] [place] [address] Dr. Vanessa Denis Bilirubin [Mass/Vol] 0.9 mg/dL Normal 0.2-1.0 [facility] Comment on above: Performed By: #### C MP #### [facility] [address] [address] [address] Vanessa Denis Calcium [Mass/Vol] 9.5 mg/dL Normal 8.5-10.1 [facility] Comment on above: Performed By: #### C MP #### [facility] [address] [place] [address] Dr. Vanessa Denis Chloride [Moles/Vol] 102 mmol/L Normal 98-107 [facility] Comment on above: Performed By: #### C MP #### [facility] [address] [address] [address] Vanessa Denis CO2 [Moles/Vol] 35.2 mmol/L Critically high 21.0-32.0 [facility] Comment on above: Performed By: #### C MP #### [facility] [address] [place] [address] Dr. Vanessa Denis Creatinine [Mass/Vol] 1.23 mg/dL Critically high 0.55-1.02 [facility] Comment on above: Performed By: #### C MP #### [facility] [address] [place] [address] Dr. Vanessa Denis EGFR-AF NAMIBIAN 52 mL/min/1.73m2 Critically low >=60 [facility] Comment on above: Performed By: #### C MP #### [facility] [address] [place] [address] Dr. Vanessa Denis EGFR-NON AF NAMIBIAN 43 mL/min/1.73m2 Critically low >=60 [facility] Comment on above: Performed By: #### C MP #### [facility] [address] [place] [address] Dr. Vanessa Denis Globulin (S) [Mass/Vol] 4.1 g/dL Normal [facility] Comment on above: Performed By: #### C MP #### [facility] [address] [place] [address] Dr. Vanessa Denis Glucose [Mass/Vol] 267 mg/dL Critically high 74-106 [facility] Comment on above: Performed By: #### C MP #### [facility] [address] [place] [address] Dr. Vanessa Denis Potassium [Moles/Vol] 4.9 mmol/L Normal 3.5-5.1 [facility] Comment on above: Performed By: #### C MP #### [facility] [address] [address] [address] Vanessa Denis Protein [Mass/Vol] 7.5 g/dL Normal 6.4-8.2 [facility] Comment on above: Performed By: #### C MP #### [facility] [address] [address] [address] Vanessa Denis Sodium [Moles/Vol] 139 mmol/L Normal 136-145 [facility] Comment on above: Performed By: #### C MP #### [facility] [address] [address] [address] Vanessa Denis Urea nitrogen [Mass/Vol] 26.0 mg/dL Critically high 7.0-18.0 [facility] Comment on above: Performed By: #### C MP #### [facility] [address] [place] [address] Dr. Vanessa Denis Urea nitrogen/Creatinine [Mass ratio] 21.1 mg/mg Normal [facility] Comment on above: Performed By: #### C MP #### [facility] [address] [place] [address] Dr. Vanessa Denis CTA CHEST WO W [...] TWYLA CONTEH Date: 2022-05-30 14:23 Normal [facility] GLYCOHEMOGLOBIN A1Con 2022 ADA RECOMMENDATION SEE BELOW Normal [facility] Comment on above: Result Comment: ADA RECOMMENDED LIMIT 4.0 - 6.0 ADA THERAPEUTIC TARGET < 7.0 ACTION SUGGESTED > 7.0 Performed By: #### A 1C #### [facility] [address] [place] [address] Dr. Vanessa Denis Glucose [Mass/Vol] 203 mg/dL Normal [facility] Comment on above: Performed By: #### A 1C #### [facility] [address] [place] [address] Dr. Vanessa Denis HbA1c (Bld) [Mass fraction] 8.7 % Critically high 4.5-6.2 [facility] Comment on above: Performed By: #### A 1C #### [facility] [address] [place] [address] Dr. Vanessa Denis HEMOGRAM AND PLATELon 2022 Hematocrit (Bld) [Volume fraction] 45.4 % Normal 36.0-48.0 [facility] Comment on above: Performed By: #### H H #### [facility] [address] [place] [address] Dr. Vanessa Denis Hemoglobin (Bld) [Mass/Vol] 14.5 g/dL Normal 12.0-16.0 [facility] Comment on above: Performed By: #### H H #### [facility] [address] [place] [address] Dr. Vanessa Denis MCH (RBC) [Entitic mass] 29.0 pg Normal 26.7-34.0 [facility] Comment on above: Performed By: #### H H #### [facility] [address] [place] [address] Dr. Vanessa Denis MCHC (RBC) [Mass/Vol] 31.9 g/dL Normal 29.9-35.2 [facility] Comment on above: Performed By: #### H H #### [facility] [address] [address] [address] Vanessa Denis MCV (RBC) [Entitic vol] 90.8 fL Normal 81.0-99.0 [facility] Comment on above: Performed By: #### H H #### [facility] [address] [address] [address] Vanessa Denis PLT 164 103/ul Normal 150-450 [facility] Comment on above: Performed By: #### H H #### [facility] [address] [address] [address] Vanessa Denis RBC 5.00 106/ul Normal 4.20-5.40 [facility] Comment on above: Performed By: #### H H #### [facility] [address] [address] [address] Vanessa Denis WBC 7.6 103/ul Normal 4.0-11.0 [facility] Comment on above: Performed By: #### H H #### [facility] [address] [place] [address] Dr. Vanessa Denis LIPID PROFILEon 05-30-2022 CHOL-HDL RATIO NORM SEE BELOW Normal [facility] Comment on above: Result Comment: 3.3 - 4.4 LOW RISK 4.4 - 7.1 AVERAGE RISK 7.1 - 11.0 MODERATE RISK >11.0 HIGH RISK Performed By: #### L IPID, TSH #### [facility] [address] [place] [address] Dr. Vanessa Denis Cholesterol [Mass/Vol] 110 mg/dL Normal <=200 [facility] Comment on above: Performed By: #### L IPID, TSH #### [facility] [address] [place] [address] Dr. Vanessa Denis Cholesterol in HDL [Mass/Vol] 51 mg/dL Normal 40-60 [facility] Comment on above: Performed By: #### L IPID, TSH #### [facility] [address] [address] [address] Vanessa Denis Cholesterol in LDL [Mass/Vol] 39.4 mg/dL Normal [facility] Comment on above: Performed By: #### L IPID, TSH #### [facility] [address] [place] [address] Dr. Vanessa Denis Cholesterol.total/Chol esterol in HDL [Mass ratio] 2.2 {ratio} Normal [facility] Comment on above: Performed By: #### L IPID, TSH #### [facility] [address] [address] [address] Vanessa Denis HDL NORMAL > or = 60 mg/dl - LOW CARDIOVASCULAR RISK <40 mg/dl - HIGH CARDIOVASCULAR RISK Normal [facility] Comment on above: Performed By: #### L IPID, TSH #### [facility] [address] [place] [address] Dr. Vanessa Denis LDL CALC NORMAL SEE BELOW Normal [facility] Comment on above: Result Comment: <100 mg/dl OPTIMAL 100 - 129 mg/dl NEAR OR ABOVE OPTIMAL 130 - 159 mg/dl BORDERLINE HIGH 160 - 189 mg/dl HIGH >190 mg/dl VERY HIGH Performed By: #### L IPID, TSH #### [facility] [address] [place] [address] Dr. Vanessa Denis Triglyceride [Mass/Vol] 98 mg/dL Normal <=150 [facility] Comment on above: Performed By: #### L IPID, TSH #### [facility] [address] [place] [address] Dr. Vanessa Denis VLDL CALC 19.6 mg/dL Normal [facility] Comment on above: Performed By: #### L IPID, TSH #### [facility] [address] [place] [address] Dr. Vanessa Denis PROF 14(COMP METB)on 023 Albumin [Mass/Vol] 3.4 g/dL Normal 3.4-5.0 [facility] Comment on above: Performed By: #### C MP #### [facility] [address] [place] [address] Dr. Vanessa Denis Albumin/Globulin [Mass ratio] 0.9 {ratio} Normal [facility] Comment on above: Performed By: #### C MP #### [facility] [address] [address] [address] Vanessa Denis ALP [Catalytic activity/Vol] 68 U/L Normal 46-116 [facility] Comment on above: Performed By: #### C MP #### [facility] [address] [address] [address] Vanessa Denis ALT [Catalytic activity/Vol] 23 U/L Normal 14-59 [facility] Comment on above: Performed By: #### C MP #### [facility] [address] [address] [address] Vanessa Denis Anion gap [Moles/Vol] 10.1 mmol/L Normal [facility] Comment on above: Performed By: #### C MP #### [facility] [address] [place] [address] Dr. Vanessa Denis AST [Catalytic activity/Vol] 21 U/L Normal 15-37 [facility] Comment on above: Performed By: #### C MP #### [facility] [address] [place] [address] Dr. Vanessa Denis Bilirubin [Mass/Vol] 0.9 mg/dL Normal 0.2-1.0 [facility] Comment on above: Performed By: #### C MP #### [facility] [address] [place] [address] Dr. Vanessa Denis Calcium [Mass/Vol] 9.2 mg/dL Normal 8.5-10.1 [facility] Comment on above: Performed By: #### C MP #### [facility] [address] [place] [address] Dr. Vanessa Denis Chloride [Moles/Vol] 101 mmol/L Normal 98-107 [facility] Comment on above: Performed By: #### C MP #### [facility] [address] [place] [address] Dr. Vanessa Denis CO2 [Moles/Vol] 31.5 mmol/L Normal 21.0-32.0 [facility] Comment on above: Performed By: #### C MP #### [facility] [address] [address] [address] Vanessa Denis Creatinine [Mass/Vol] 1.15 mg/dL Critically high 0.55-1.02 [facility] Comment on above: Performed By: #### C MP #### [facility] [address] [address] [address] Vanessa Denis EGFR-AF NAMIBIAN 56 mL/min/1.73m2 Critically low >=60 [facility] Comment on above: Performed By: #### C MP #### [facility] [address] [address] [address] Vanessa Denis EGFR-NON AF NAMIBIAN 46 mL/min/1.73m2 Critically low >=60 [facility] Comment on above: Performed By: #### C MP #### [facility] [address] [address] [address] Vanessa Denis Globulin (S) [Mass/Vol] 4.0 g/dL Normal [facility] Comment on above: Performed By: #### C MP #### [facility] [address] [address] [address] Vanessa Denis Glucose [Mass/Vol] 254 mg/dL Critically high 74-106 [facility] Comment on above: Performed By: #### C MP #### [facility] [address] [address] [address] Vanessa Denis Potassium [Moles/Vol] 4.6 mmol/L Normal 3.5-5.1 [facility] Comment on above: Performed By: #### C MP #### [facility] [address] [address] [address] Vanessa Denis Protein [Mass/Vol] 7.4 g/dL Normal 6.4-8.2 [facility] Comment on above: Performed By: #### C MP #### [facility] [address] [address] [address] Vanessa Denis Sodium [Moles/Vol] 138 mmol/L Normal 136-145 [facility] Comment on above: Performed By: #### C MP #### [facility] [address] [address] [address] Vnaessa Denis Urea nitrogen [Mass/Vol] 24.0 mg/dL Critically high 7.0-18.0 [facility] Comment on above: Performed By: #### C MP #### [facility] [address] [place] [address] Dr. Vanessa Denis Urea nitrogen/Creatinine [Mass ratio] 20.9 mg/mg Normal [facility] Comment on above: Performed By: #### C MP #### [facility] [address] [address] [address] Vanessa Denis TSHon 05-30-2022 TSH 2.067 uIU/mL Normal 0.358-3.740 [facility] Comment on above: Performed By: #### L IPID, TSH #### [facility] [address] [place] [address] Dr. Vanessa Denis Vital Signs Date Time Vital Sign Value Performing Clinician Facility 06-24-2023 13:52-0500 Blood Pressure Location Doug MACARIOL [facility] 06-24-2023 13:52-0500 Diastolic blood pressure 78 mm[Hg] Doug NILL [facility] 06-24-2023 13:52-0500 Heart rate 68 /min Doug NILL [facility] 06-24-2023 13:52-0500 Respiratory rate 16 /min Doug SORTOL [facility] 06-24-2023 13:52-0500 Systolic blood pressure 110 mm[Hg] Doug NILL [facility] 06-09-2023 11:52-0500 Body height 152.4 cm Dg Proctor MD Work Phone: [facility] 06-09-2023 11:52-0500 Body mass index (BMI) [Ratio] 32.42 kg/m2 Dg Proctor MD Work Phone: [facility] 06-09-2023 11:52-0500 Body weight 75.3 kg Dg Proctor MD Work Phone: [facility] 04-18-2023 00:39-0500 Diastolic blood pressure 95 mm[Hg] Kaylinn Dokken [facility] 04-18-2023 00:39-0500 Heart rate 74 /min Kaylinn Dokken [facility] 04-18-2023 00:39-0500 Mean blood pressure 117 mm[Hg] Kaylinn Dokken [facility] 04-18-2023 00:39-0500 Respiratory rate 22 /min Kaylinn Dokken [facility] 04-18-2023 00:39-0500 SaO2% (BldA) [Mass fraction] 97 % Kaylinn Dokken [facility] 04-18-2023 00:39-0500 Systolic blood pressure 161 mm[Hg] Kaylinn Dokken [facility] 04-17-2023 23:43-0500 Diastolic blood pressure 71 mm[Hg] Kaylinn Dokken [facility] 04-17-2023 23:43-0500 Heart rate 63 /min Kaylinn Dokken [facility] 04-17-2023 23:43-0500 Mean blood pressure 98 mm[Hg] Kaylinn Dokken [facility] 04-17-2023 23:43-0500 Respiratory rate 15 /min Kaylinn Dokken [facility] 04-17-2023 23:43-0500 SaO2% (BldA) [Mass fraction] 96 % Kaylinn Dokken [facility] 04-17-2023 23:43-0500 Systolic blood pressure 151 mm[Hg] Kaylinn Dokken [facility] 04-17-2023 23:23-0500 Body temperature 97.88 [degF] Kaylinn Dokken [facility] 04-17-2023 23:23-0500 Diastolic blood pressure 82 mm[Hg] Kaylinn Dokken [facility] 04-17-2023 23:23-0500 Heart rate 68 /min Kaylinn Dokken [facility] 04-17-2023 23:23-0500 Mean blood pressure 99 mm[Hg] Kaylinn Dokken [facility] 04-17-2023 23:23-0500 Respiratory rate 20 /min Kaylinn Dokken [facility] 04-17-2023 23:23-0500 SaO2% (BldA) [Mass fraction] 94 % Kaylinn Dokken [facility] 04-17-2023 23:23-0500 Systolic blood pressure 134 mm[Hg] Kaylinn Dokken [facility] 04-17-2023 22:39-0500 Respiratory rate 18 /min Kaylinn Dokken [facility] 04-17-2023 21:50-0500 Respiratory rate 18 /min Kaylinn Dokken [facility] 04-17-2023 20:50-0500 Body temperature 98.06 [degF] Kaylinn Dokken [facility] 04-17-2023 20:50-0500 Heart rate 72 /min Kaylinn Dokken [facility] 04-17-2023 20:50-0500 Respiratory rate 18 /min Nancy Stern [facility] 04-17-2023 20:29-0500 Body temperature 98.06 [degF] Nancy Stern [facility] 04-17-2023 20:29-0500 Heart rate 76 /min Nancy Stern [facility] 02-23-2023 13:40-0400 Body height 152.4 cm Nicolás Maura [facility] [employer] Other 02-23-2023 13:40-0400 Body mass index (BMI) [Ratio] 34.72 kg/m2 Nicolás Maura [facility] [employer] Other 02-23-2023 13:40-0400 Body temperature 96.8 [degF] Nicolás Maura [facility] [employer] Other 02-23-2023 13:40-0400 Body weight 80.65 kg Nicolás Maura [facility] [employer] Other 02-23-2023 13:40-0400 Diastolic blood pressure 82 mm[Hg] Nicolás Maura [facility] [employer] Other 02-23-2023 13:40-0400 Respiratory rate 20 /min Nicolás Maura [facility] [employer] Other 02-23-2023 13:40-0400 SaO2% (BldA) [Mass fraction] 99 % Nicolás Maura [facility] [employer] Other 02-23-2023 13:40-0400 Systolic blood pressure 132 mm[Hg] Nicolás Maura [facility] [employer] Other 12-31-2022 09:00-0400 Body height 152.4 cm Nicolás Maura [facility] [employer] Other 12-31-2022 09:00-0400 Body mass index (BMI) [Ratio] 32.14 kg/m2 Nicolás Maura [facility] [employer] Other 12-31-2022 09:00-0400 Body temperature 96.3 [degF] Nicolás Maura [facility] [employer] Other 12-31-2022 09:00-0400 Body weight 74.66 kg Nicolás Maura [facility] [employer] Other 12-31-2022 09:00-0400 Diastolic blood pressure 56 mm[Hg] Nicolás Maura [facility] [employer] Other 12-31-2022 09:00-0400 Respiratory rate 20 /min Nicolás Maura [facility] [employer] Other 12-31-2022 09:00-0400 SaO2% (BldA) [Mass fraction] 98 % Nicolás Maura [facility] [employer] Other 12-31-2022 09:00-0400 Systolic blood pressure 91 mm[Hg] Nicolás Maura [facility] [employer] Other Encounters Encounter Date Encounter Type Care Provider Facility Start: 10-13-2023 ambulatory KEN Crow ty:[facility] Start: 09-08-2023 End: 09-08-2023 ambulatory DG Yu BEDevin Not Available Start: 06-30-2023 End: 07-01-2023 ambulatory MD NICOLÁS PERRY Facility:[facility] Start: 06-24-2023 End: 06-25-2023 ambulatory Doug FERNANDEZ Facility:[facility] Start: 06-24-2023 End: 06-24-2023 Patient encounter procedure Doug Karli FERNANDEZ General Surgery Nill/[facility] Start: 06-09-2023 Bamboo flowsheet Dg Proctor MD [...] 05-21-2023 End: 05-21-2023 ambulatory Nicolás Perry [facility] [employer] [facility] Start: 05-21-2023 Office outpatient vi sit 25 minutes Nicolás Perry [facility] Start: 04-17-2023 End: 04-18-2023 Emergency department patient visit Nancy Stern Facility:[facility] Start: 04-17-2023 End: 04-18-2023 Emergency department patient visit Nancy Stern [facility] Start: 04-08-2023 End: 04-08-2023 ambulatory Nicolás Perry [facility] [employer] Other Start: 04-08-2023 Telephone encounter Nicolás Maura [facility] Start: 02-27-2023 ambulatory Karynadarlene juliajarrod Facility :[facility] Start: 02-23-2023 End: 02-23-2023 ambulatory Nicolás Maura [facility] Other Start: 02-23-2023 Office outpatient vi sit 25 minutes Nicolás Maura [facility] Start: 12-31-2022 End: 12-31-2022 ambulatory Nicolás Maura [facility] [employer] [facility] Start: 12-31-2022 Office outpatient ne w 45 minutes Nicolás Maura [facility] Start: 08-13-2022 End: 08-13-2022 ambulatory DARRION SHAMMO Facility:[facility] Start: 08-11-2022 End: 08-11-2022 ambulatory DARRION SHAMMO Facility:[facility] Start: 05-30-2022 End: 05-31-2022 ambulatory DARRION SHAMMO Facility:[facility] Start: 05-28-2022 End: 05-28-[address] JENIFER CASTILLO Facility:[facility] Start: 07-08-2021 End: 02-03-2022 ambulatory [place] Procedures Date Procedure Procedure Detail Performing Clinician [...] procedure 09/08/2023 1:45 PM EDT Office Visit [facility] [address] [place] [address] Dg Proctor MD [id number] [place] [address] [facility] Start: 1950 Medicare Annual Well ness (AWV) Medicare Annual Wellness (AWV) [facility] Start: 1950 Screening for malign ant neoplasm of colon [facility] Immunizations Immunization Date Immunization Notes Care Provider Fa cility 02-19-2023 influenza virus vaccine, unspecified formulation Doug FERNANDEZ [facility] 02-06-2022 SARS-CoV-2 (COVID-19 ) [id number] Doug FERNANDEZ [facility] 05-06-2021 SARS-CoV-2 (COVID-19 ) mRNA BNT-162b2 vax Doug FERNANDEZ [facility] 07-06-2020 SARS-CoV-2 (COVID-19 ) Ad26 vaccine, recombinant Doug FERNANDEZ [facility] Payers Date Payer Category Payer Medicaid MEDICAID [facility] [id number] 2021-Present [phone] [address] [place] [address] Medicaid [id number] 2020 Private Health Insurance [id number] 2013 Medicare MEDICARE MEDICAR E PART B [id number] 2013-[place] [address] Medicare [id number] 1959 Medicaid [id number] 1959 Medicare [id number] 1948 Unknown [id number] 2.16.840.1.911297.3.579.2.5 93 1948 Unknown [id number] 2.16.840.1.754311.3.579.2.5 93 1948 Unknown [id number] 2.16.840.1.168016.3.579.2.5 93 1948 Unknown [id number] 2.16.840.1.026796.3.579.2.5 93 1948 Unknown [id number] 2.16.840.1.798955.3.579.2.5 93 1948 Unknown [id number] 2.16.840.1.150688.3.579.2.7 27 1948 Unknown [id number] 2.16.840.1.616691.3.579.2.7 27 1948 Unknown [id number] 2.16.840.1.617238.3.579.2.7 27 1948 Unknown [id number] 2.16.840.1.423393.3.579.2.7 27 1948 Unknown [id number] 2.16.840.1.673564.3.579.2.7 27 1948 Unknown [id number] 2.16.840.1.863244.3.579.2.1 259 1948 Unknown [id number] 2.16.840.1.347846.3.579.2.1 259 Social History Date Type Detail Facility Unknown if ever smoked [facility] Other Sex Assigned At [facility] Start: 07-10-2020 End: 06-24-2023 Tobacco smoking status Ex-smoker (finding) [facility] Tobacco smoking status ALIS Tobacco smoking consumption unknown [facility] Healthcare Start: 1950 Sex Assigned At Not on file N [facility] Healthcare Tobacco smoking status Never [facility] Functional Status Date Assessment Result Facility 06-24-2023 Functional Status N/A [facility] 04-17-2023 Functional Status N/A [facility] Clinical Notes 12-31-2022 to 06-24-2023 Dg Proctor [...] mg= 1 tab(s), Oral, Daily Vitamin D3, 94985 unit(s), Oral, qWeek Zoloft 25 mg Tab, [...] virus vaccine, inactivated 02/19/2023 Recorded SARS-CoV-2 (COVID-19) [id number].[id number] 02/06/2022 Recorded SARS-CoV-2 (COVID-19) mRNA BNT-162b2 vax (more content not included)... [facility] Comment on above: Result Comment: Elec tronically Signed By: REBECCA KILLIAN, Doug Dominique\Date and Time Signed: 06/24/23 14:18 EST 06-09-2023 History of Present illness Narrative Associated Problem(s): Polyneuropathy TSH + fT4. Emphasized good A1c control. Associated Problem(s): Sequelae of cerebral infarction Echo c bubble study. ([place] [facility] [place]). US carotids ([facility]). (Continue ASA.) Images from the original note were not included. Outpatient Progress Note Prev Appt: Visit date not found Chief Complaint Patient presents with Memory Loss Assessment and Plan - Sequelae of cerebral infarction Echo c bubble study. ([place] [facility] [place]). US carotids ([facility]). (Continue ASA.) Polyneuropathy TSH [...] Nov, hemipar R face & hand. -> [facility]. Known DM. Onset Semeiology Imaging US carotids (03/2020, [place]) - < 50% B CT head (12/2019, [place]) - neg Testing Surgery Failed Dx PN [...] mouth in the morning. D3-50 1.25 MG (41049 UT) capsule ferrous sulfate 325 (65 Fe) [...] 06/09/2023. documented in this encounter [facility] 05-21-2023 Evaluation note Encounter Date Diagnosis [...] of any breach, fraud, or malicious third alliance party actors and no personal patient information was compromised. [employer] Other [id number] Hospital Discharge instructions Patient Education 04/18/2023 00:43:25 [...] homework. ?Working on the computer, using social [employer], and texting. Avoid activities that could cause another head injury, such as playing sports, until your health care provider approves. Having another head injury, especially before the first one has healed, can bedangerous. Ask your health care provider when it is safe for you to return to your regular activities, including work or school. Ask your health care provider for a etuj-bc-jtfr plan for gradually returning to activities. Ask [...] your friends, family, a trusted colleague, and jet worker about your injury, symptoms, and restrictions. Have them watch for any new or worsening problems. General instructions Take ljsq-dii-lowwpxv and prescription medicines only as told by [...] provider. Document Revised: 02/24/2020 Document Reviewed: 02/24/2020 [employer] Patient Education 2022 [employer]. Follow Up Care 04/17/2023 20:26:54 With:RICHARD VARGAS Address: [address] [place] [address] Business (1) When:04/20/2023 Comments:Follow-up with your primary care provider in 3 to 5 days. If symptoms worsen, do not improve, or new symptoms arise please report back to emergency department for further evaluation. [facility]12-22-2023 Evaluation + Plan noteExtracted from: Title:ED [...] Date:06/30/2023 10:00:00 AM Scheduled Provider:KEN OZUNA PA-C Location:[facility] Appointment Type:URO Office Visit [facility]10-30-2023 Evaluation note* Encounter Date Diagnosis Assessment [...] recent gout flare. Continue monitor without medications. [employer] Other 09-06-2023 Evaluation note* Encounter Date Diagnosis [...] We will check also for paraproteinemia work-up. [facility] Other Evaluation + Plan note Future Appointments Appointment Date:06/30/2023 10:00:00 AM Scheduled Provider:KEN OZUNA PA-C Location:[facility] Appointment Type:URO Office Visit [facility] Evaluation noteNo InformationNort [employer] Other Evaluation note* Diagnosis Sequelae of cerebral [...] TONSILLECTOMY AND ADENOIDECTOMY Hospitalization History SEE ABOVE [facility] Other History general Narrative - Reported* Type [...] TONSILLECTOMY AND ADENOIDECTOMY Hospitalization History SEE ABOVE [facility] Other Hospital course Narrative No data available for this section [facility] No data available for this section [facility] Progress note No data available for this section [facility] Summary Purpose Family History No Family [...] section and content) DATE CREATED AUTHOR 02/03/2022 [place] DATE CREATED AUTHOR AUTHOR'S ORGANIZ ATION 08/22/2022 [facility] DATE CREATED AUTHOR AUTHOR'S ORGANIZ ATION 07/20/2023 [facility] DATE CREATED AUTHOR AUTHOR'S ORGANIZ ATION 09/10/2023 [facility] EPIC REASON FOR VISIT (unrecogniz ed section and content) Reason Comments Memory Loss Patient Care team informatio n (unrecognized section and content) Skein Drier Relationship Specialty Start Date End Date Eduardo Atkins MD [address] [place] [address] PCP - General Family Medicine 06/09/23 FOR [...] BE BASED ON THE PRIMARY CLINICAL RECORDS. [employer] provides no warranty or guarantee of the accuracy or completeness of information in this document.
== END 2023-10-06 07:51 | disposition home or self-care (01) ==
LOC: PST 07:50
PROVIDERS: PCP Nurse Practitioner Primary Care; Visit Provider Surgery
DX: Z01.818 Encounter for other preprocedural examination (principal); Z12.11 Encounter for screening for malignant neoplasm of colon

== ENCOUNTER 2023-11-16 02:06 | Outpatient (REF) | payer MEDICARE, MEDICAID, SELFPAY ==
--- OUTSIDE RECORDS SUMMARY | 2023-11-16 02:10 | XMS_ITS | CCD ---
Author Organization [facility] Care Team Providers Care Fuel Retrofitting Technician Name Role Phone SHAMMO, DARRION Primary Care [...] DARRION Attending Unavailable SHAMMO, DARRION Consulting Unavailable [place], Nicolás Unavailable RICHARD VARGAS Primary Care Physician Unavailable Primary Care Provider Unavailnicky Atkins MD, Eduardo Mckenna Primary Care Provider [phone] SHAMDARRION BEARDEN Primary Care Physician DG PROCTOR Attending Unavailable DG PROCTOR Attending Unavailable SHAMMO, DARRION Primary Care Unavailable VIVI OZUNA Attending Unavailable SHAMMO, DARRION Primary Care Unavailable VIVI OZUNA Attending Unavailable [place]LANDO, NICOLÁS Referring Unavailable SHAMMO, DARRION Primary Care Unavailable VIVI OZUNA Attending Unavailable DO Nancy Stern Attending Unavailable Doug FERNANDEZ Attending Unavailable SHAMMO, DARRION Primary Care Unavailable FRANDY ROLLINS Referring Unavailable Medications Current Medications Medication Drug Class(es) Dates Sig (Normalized) Sig (Original) 0.5 ML tirzepatide 10 MG/ML Auto-Injector [Mounjaro] (4 sources) Start: 06-10-2023 inject 5 mg by subcutaneous injection every week Mounjaro 5 mg/0.5 mL subcutaneous solution 5 mg, SubCutaneous, qWeek, Refills(s) 0 Start Date: 06/10/23 Status: Ordered Mounjaro 5 MG/0. 5ML as directed Subcutaneous ONCE A WEEK Active acetaminophen 325 mg oral ta blet (6 sources) Start: 06-25-2023 acetaminophen 325 mg Tab 30 tab(s), 0 Refill(s), Refills(s) 0 Start Date: 06/25/23 Status: Ordered Start: 07-10-2020 acetaminophen Refills(s) 0 Start Date: 07/10/20 Status: Ordered take 1 tablet by lei th every four hours Acetaminophen 325 MG 1 tablet as needed Orally every 4 hrs Active [id number] actuat albuterol 0.09 mg/actuat metered dose [...] needed Inhalation every 4 hrs Active Albuterol (Eqv-Proventil HFA) 90 mcg/inh inhalation aerosol (1 source) Start: 06-25-2023 alendronic acid 70 mg oral tablet (9 sources) Bisphosphonate Start: 07-10-2020 take 1 mg [...] Active ascorbic acid 250 mg chewable tablet (6 sources) Vitamin C Start: 06-25-2023 ascorbic acid 250 mg oral tablet, chewable 60 tab(s), 0 Refill(s), Refills(s) 0 Start Date: 06/25/23 Status: Ordered Start: 05-22-2023 ascorbic acid (Vitamin C) 250 MG chewable tablet aspirin 81 mg delayed release oral tablet (9 sources) Platelet Aggregation Inhibitor, Nonsteroidal Anti-inflammatory Drug Start: 07-10-2020 take 1 tablet by mouth once daily aspirin 81 mg Oral EC Tab 81 mg = 1 tab(s), Oral, Daily, Refills(s) 0 Start Date: 07/10/20 Status: Ordered brexpiprazole 0.5 mg oral tablet (4 sources) Atypical Antipsychotic Start: 05-28-2023 take 1 tablet by mouth once daily Rexulti 0.5 mg oral tablet 0.5 mg = 1 tab(s), Oral, Daily, Refills(s) 0 Start Date: 06/10/23 Status: Ordered cholecalciferol 1.25 mg oral capsule (2 sources) Vitamin D Start: 05-28-2023 D3-50 1.25 MG (32374 UT) capsule ergocalciferol 1.25 mg oral capsule (4 sources) Provitamin D2 Compound take 1 capsule by mouth every week Vitamin D (Ergocalciferol ) 1.25 MG (29582 UT) 1 capsule Orally ONCE A WEEK Active ferrous sulfate 325 mg oral tablet (9 sources) Start: 07-10-2020 take 325 mg by mouth once daily ferrous sulfate 325 mg, Oral, Daily, Refills(s) 0 Start Date: 07/10/20 Status: Ordered Start: 07-10-2020 ferrous sulfat e Oral, Refills(s) 0 Start Date: 07/10/20 Status: Ordered take 1 tablet by lei th once daily Ferrous Sulfate 325 (65 Fe) MG 1 tablet Orally ONCE A DAY Active furosemide 20 mg oral tablet (9 sources) Loop Diuretic Start: 07-10-2020 take 1 mg by mouth once daily furosemide 20 mg Tab mg tab(s), Oral, Daily, Refills(s) 0 Start Date: 07/10/20 Status: Ordered hydroCHLOROthiazide 12.5 mg / lisinopril 20 mg oral tablet (8 sources) Thiazide Diuretic, Angiotensin Converting Enzyme Inhibitor [...] Active magnesium oxide 400 mg oral tablet (4 sources) Start: 05-28-2023 take 1 tablet by [...] pen-injector ondansetron 4 mg disintegrating oral tablet (6 sources) Serotonin-3 Receptor Antagonist Start: 06-10-2023 take [...] dissolve Orally EVERY 4 HOURS NEEDED Active 24 hr oxybutynin chloride 10 mg extended release oral tablet (1 source) Cholinergic Muscarinic Antagonist Start: 10-13-2023 take 1 tablet by mouth once daily oxybutynin 10 mg ER Tab 10 mg = 1 tab(s), Oral, Daily, # 30 tab(s), Refills(s) 11, Pharmacy: [facility] 1155, 152.2, cm, 10/13/23 10:01:00 EDT, Height/Length Dosing, 80.6, kg, 10/13/23 10:01:00 EDT, Weight Dosing Start Date: 10/13/23 Status: Ordered pantoprazole 20 mg delayed release oral tablet (9 sources) Proton Pump Inhibitor Start: 06-10-2023 take [...] Ordered rosuvastatin calcium 5 mg oral tablet (8 sources) HMG-CoA Reductase Inhibitor Start: 06-10-2023 take 1 tablet by mouth once daily rosuvastatin 5 mg Tab 5 mg = 1 tab(s), Oral, Daily, Refills(s) 0 Start Date: 06/10/23 Status: Ordered sertraline 25 mg oral tablet (4 sources) Serotonin Reuptake Inhibitor Start: 06-02-2023 take [...] Refills(s) 0 Start Date: 07/10/20 Status: Ordered Vitamin B-12 1000 mcg oral tablet (1 source) Start: 06-25-2023 Vitamin B-12 1000 mcg oral tablet 11 tab(s), 0 Refill(s), Refills(s) 0 Start Date: 06/25/23 Status: Ordered vitamin b12 1 mg extended [...] Orally TWICE A DAY Active Vitamin D3 (3 sources) Start: 07-10-2020 take 70698 [IU] by mouth every week Vitamin D3 50,000 unit(s), Oral, qWeek, Refills(s) 0 Start Date: 07/10/20 Status: Ordered Start: 07-10-2020 Vitamin D3 Ref ills(s) 0 Start Date: 07/10/20 Status: Ordered Completed/Discontinued Medications Medication Drug Class(es) Dates Sig (Normalized) Sig (Original) potassium chloride 20 meq extended release oral tablet (8 sources) Start: 06-10-2023 take 1 tablet by [...] Date Documented Date Episodic/Chronic Acute cerebrovascular disease (3 sources) Cerebrovascular accident 07-10-2020 Chronic Anxiety disorders (2 sources) Anxiety 06-10-2023 Chronic Asthma (3 sources) Asthma 07-10-2020 Chronic Chronic kidney disease (12 sources) Chronic kidney disease stage 4; Translations: [Chronic kidney disease, stage 4 (severe)] Chronic Congestive heart failure; nonhypertensive (3 sources) Chronic combined systolic (congestive) and diastolic (congestive) heart failure; Translations: [Heart failure] Onset: 3 06-10-2023 Chronic Deficiency and other anemia (4 sources) Anemia of renal disease; Translations: [Anemia in chronic kidney disease] Chronic Deficiency and other anemia (3 sources) Anemia in chronic kidney disease Chronic Deficiency and other anemia (3 sources) Anemia 07-10-2020 Episodic Diabetes mellitus with complications (7 sources) Disorder of kidney due to diabetes mellitus; Translations: [Type 2 diabetes mellitus with diabetic chronic kidney disease] Chronic Diabetes mellitus without complication (10 sources) Type 2 diabetes mellitus without complications; Translations: [Diabetes mellitus] Onset: 3 Chronic Disorders of lipid metabolism (3 sources) Hyperlipidemia, unspecified; Translations: [Hyperlipidemia] Onset: 3 06-10-2023 Chronic Diverticulosis and diverticulitis (2 sources) Diverticular disease 06-10-2023 Chronic E Codes: Fall (1 source) Fall; Translations: [Unspecified fall, initial encounter] Onset: 3 Episodic Esophageal disorders (2 sources) Gastroesophageal reflux disease 06-10-2023 Chronic Essential hypertension (11 sources) Essential (primary) hypertension; Translations: [Hypertensive disorder] Onset: 3 Chronic Genitourinary symptoms and ill-defined conditions (7 sources) Urinary incontinence; Translations: [Unspecified urinary incontinence] Onset: 4 Chronic Genitourinary symptoms and ill-defined conditions (2 sources) Retention of urine; Translations: [Retention of urine, unspecified] Onset: 4 Episodic Headache; including migraine (2 sources) Migraine 06-10-2023 Chronic Headache; including migraine (3 sources) Headache 07-10-2020 Episodic Heart valve disorders (3 sources) Heart murmur duration, short 07-10-2020 Episodic Hypertension with complications and secondary hypertension (10 sources) Hypertensive heart disease with heart failure; Translations: [Chronic kidney disease due to hypertension] Onset: 3 Chronic Late effects of cerebrovascular disease (4 sources) Sequelae of cerebral infarction; Translations: [Unspecified sequelae of cerebral infarction] Onset: 4 06-09-2023 Chronic Miscellaneous mental health disorders (3 sources) Mental disorder 07-10-2020 Chronic Mood disorders (2 sources) Depressive disorder 06-10-2023 Chronic Osteoarthritis (3 sources) Arthritis 07-10-2020 Chronic Osteoporosis (2 sources) Osteoporosis 06-10-2023 Chronic Other aftercare (1 source) assisted (current) use of oral hypoglycemic drugs; Translations: [INTERMEDIATE USE ORAL HYPOGLYCEMIC DX] Onset: 3 Episodic Other aftercare (1 source) Other termite control technician (current) drug therapy; Translations: [OTH RETAIL SUPPORT ASSOCIATE CURRENT DRUG THERAPY] Onset: 3 Episodic Other circulatory disease (2 sources) Disorder of aorta 06-10-2023 Chronic Other diseases of kidney and ureters (6 sources) Secondary hyperparathyroidism; Translations: [Secondary hyperparathyroidism of renal origin] 06-10-2023 Chronic Other diseases of kidney and ureters (3 sources) Secondary hyperparathyroidism of renal origin Chronic Other diseases of kidney and ureters (2 sources) Anemia of renal disease 06-10-2023 Episodic Other diseases of kidney and ureters (1 source) Acquired renal cyst without neoplastic change; Translations: [Cyst of kidney, acquired] Onset: 4 Episodic Other diseases of kidney and ureters (2 sources) Hydronephrosis; Translations: [Unspecified hydronephrosis] Onset: 4 Episodic Other diseases of kidney and ureters (1 source) Cyst of kidney 06-30-2023 Episodic Other diseases of veins and lymphatics (2 sources) Lymphedema 06-10-2023 Chronic Other injuries and conditions due to external causes (1 source) Injury of head; Translations: [Unspecified injury of head, initial encounter] Onset: 3 Episodic Other lower respiratory disease (4 sources) Hypoxemia; Translations: [HYPOXEMIA] Onset: 3 Episodic Other nervous system disorders (4 sources) Polyneuropathy; Translations: [Polyneuropathy, unspecified] Onset: 4 06-09-2023 Chronic Other nutritional; endocrine; and metabolic disorders (2 sources) Body mass index 30+ - obesity 06-24-2023 Chronic Other nutritional; endocrine; and metabolic disorders (2 sources) Obesity 06-24-2023 Chronic Other nutritional; endocrine; and metabolic disorders (2 sources) Hyperuricemia without signs of inflammatory arthritis and tophaceous disease Episodic Other screening for suspected conditions (not mental disorders or infectious disease) (2 sources) Encounter for observation for other suspected diseases and conditions ruled out; Translations: [Screening for malignant neoplasm of colon done] Onset: 3 Episodic Residual codes; unclassified (3 sources) Edema of lower extremity 07-10-2020 Episodi c Schizophrenia and other psychotic disorders (4 sources) Schizoaffective disorder, bipolar type; Translations: [Schizoaffective disorder] Onset: 2 Chronic Thyroid disorders (6 sources) Hypothyroidism, unspecified; Translations: [Hypothyroidism] Onset: 3 07-10-2020 Chronic Transient cerebral ischemia (2 sources) Transient cerebral ischemia 06-10-2023 Chronic Unclassified (2 sources) Patient encounter status 06-24-2023 Past or Other Problems Problem Classification Problem Date Documented Da te Episodic/Chronic Chronic kidney disease (1 source) Chronic kidney disease Results Test Name Value Interpretation Reference Range Facility [facility] 10-14-2023 Screens [id number] 0#1.00TIFF [facility] Ambulatory Visit Summaryon 0 10-13-2023 Ambulatory Visit Summary AVILA VALENZUELA Edgardo :1950 Visit Date:10/13/2023 Ambulatory Visit Instructions Your Diagnosis Mixed incontinence urge and stress Hydronephrosis, right Bilateral renal cysts Your Care Team Attending Physician - VVII OZUNA PA-C Primary Care Physician - DARRION ARMSTRONG CNP This Is Your Medications List oxybutynin (oxybutynin 5 mg Tab) Contact prescribing physician if questions or concerns acetaminophen (acetaminophen 325 mg Tab) albuterol (Albuterol (Eqv-Proventil HFA) 90 mcg/inh inhalation aerosol) alendronate (alendronate 70 mg oral tablet) ascorbic acid (ascorbic acid 250 mg oral tablet, chewable) aspirin (aspirin 81 mg Oral EC Tab) bisacodyl (Dulcolax Laxative 5 mg oral tablet) brexpiprazole (Rexulti 0.5 mg oral tablet) cholecalciferol [...] cleft palate, Tonsillectomy and adenoidectomy. Discharge Vitals Temperature (Temporal Artery) 36.7 ?C Heart Rate (Peripheral) 78 Blood Pressure 116/78 Height 152.2 cm Height 60 in Weight 80.6 kg Weight 177.32 lb BMI 34.79 What to do next Scheduled Follow-Up Appointments Thursday 11:00 AM EDT With: VIVI OZUNA PA-C Where: [facility] Longterm Recordson 10-12 Longterm Records [id number] #1.00TIFF [facility] Patient Educationon 10-13-19 Patient Education Obstetrics and Gynecology Overactive Bladder, Adult Overactive bladder is a condition in which a person has a sudden and frequent need to urinate. A person might also leak urine if he or she cannot get to the bathroom fast enough (urinary incontinence). Sometimes, symptoms can interfere with work or social activities. What are the causes? Overactive bladder is associated with poor nerve signals between your bladder and your brain. Your bladder may get the signal to empty before it is full. You may also have very sensitive muscles that make your bladder squeeze too soon. This condition may also be caused by other factors, such as: ? Medical conditions: ? Urinary tract infection. ? Infection of nearby tissues. ? Prostate enlargement. ? Bladder stones, inflammation, or tumors. ? Diabetes. ? Muscle or nerve weakness, especially from these conditions: ? A spinal cord injury. ? Stroke. ? Multiple sclerosis. ? Parkinson's disease. ? Other causes: ? Surgery on the uterus or urethra. ? Drinking too much caffeine or alcohol. ? Certain medicines, especially those that eliminate extra fluid in the body (diuretics). ? Constipation. What increases the risk? You may be at greater risk for overactive bladder if you: ? Are an older adult. ? Smoke. ? Are going through menopause. ? Have prostate problems. ? Have a neurological disease, such as stroke, dementia, Parkinson's disease, or multiple sclerosis (MS). ? Eat or drink alcohol, spicy food, caffeine, and other things that irritate the bladder. ? Are overweight or obese. What are the signs or symptoms? Symptoms of this condition include a sudden, strong urge to urinate. Other symptoms include: ? Leaking urine. ? Urinating 8 or more times a day. ? Waking up to urinate 2 or more times overnight. How is this diagnosed? This condition may be diagnosed based on: ? Your symptoms and medical history. ? A physical exam. ? Blood or urine tests to check for possible causes, such as infection. You may also need to see a health care provider who specializes in urinary tract problems. This is called a urologist. How is this treated? Treatment for overactive bladder depends on the cause of your condition and whether it is mild or severe. Treatment may include: ? Bladder training, such as: ? Learning to control the urge to urinate by following a schedule to urinate at regular intervals. ? Doing Kegel exercises to strengthen the pelvic floor muscles that support your bladder. ? Special devices, such as: ? Biofeedback. This uses sensors to help you become aware of your body's signals. ? Electrical stimulation. This uses electrodes placed inside the body (implanted) or outside the body. These electrodes send gentle pulses of electricity to strengthen the nerves or muscles that control the bladder. ? Women may use a plastic device, called a pessary, that fits into the vagina and supports the bladder. ? Medicines, such as: ? Antibiotics to treat bladder infection. ? Antispasmodics to stop the bladder from releasing urine at the wrong time. ? Tricyclic antidepressants to relax bladder muscles. ? Injections of botulinum toxin type A directly into the bladder tissue to relax bladder muscles. ? Surgery, such as: ? A device may be implanted to help manage the nerve signals that control urination. ? An electrode may be implanted to stimulate electrical signals in the bladder. ? A procedure may be done to change the shape of the bladder. This is done only in very severe cases. Follow these instructions at home: Eating and drinking ? Make diet or lifestyle changes recommended by your health care provider. These may include: ? Drinking fluids throughout the day and not only with meals. ? Cutting down on caffeine or alcohol. ? Eating a healthy and balanced diet to prevent constipation. This may include: ? Choosing foods that are high in fiber, such as beans, whole grains, and fresh fruits and vegetables. ? Limiting foods that are high in fat and processed sugars, such as fried and sweet foods. Lifestyle ? Lose weight if needed. ? Do not use any products that contain nicotine or tobacco. These include cigarettes, chewing tobacco, and vaping devices, such as e-cigarettes. If you need help quitting, ask your health care provider. General instructions ? Take xiqh-ajk-xjgnwic and prescription medicines only as told by your health care provider. ? If you were prescribed an antibiotic medicine, take it as told by your health care provider. Do not stop taking the antibiotic even if you start to feel better. ? Use any implants or pessary as told by your health care provider. ? If needed, wear pads to absorb urine leakage. ? Keep a log to track how much and when you drink, and when you need to urinate. This will help your health care provider monitor yo (more content not included)... [facility] Urology Office/Clinic Noteon 10-13-2023 Urology Office/Clinic Note Chief Complaint 3 month F/U HPI Staff 3m to starting Oxybutynin therapy.- Still taking with no problems DX: Mixed incontinence, BL Renal Cysts, Rt Hydronephrosis MAURA 3/20/24 *No [place]. 1.2cm Rt Renal Parapelvic Simple Cyst. B&BSQ 10 PVR 229 Dysuria: denies Incomplete bladder emptying: denies Hematuria: denies visible blood Frequency: every 3-4 hours Urgency: _denies Nocturia: denies Stream: denies hesitation, normal stream Leaking: denies Post void dripping: denies Wearing pads/ Depends: Depends wore daily changes at the end of the day Urge incontinence: yes Stress incontinence: occasionally Incontinence without Sensory Awareness: denies Abdominal pain: denies Flank pain: denies Sexual complaints: denies History of Present Illness staff HPI reviewed and agree. Review of Systems PHQ Score Initial Depression Screen Score: 0 SCORE no fever, chills, malaise, myalgia. no rash/lesions. no chest pain, palpitations, or SOB. no abdominal pain, nausea, vomiting. no unilateral calf swelling, redness, pain Physical Exam Vitals & Measurements T: 36.7 ?C(Temporal Artery) HR: 78(Peripheral) BP: 116/78 HT: 60 in HT: 152.2 cm WT: 80.6 kg WT: 177.32 lb BMI: 34.79 General: nontoxic, NAD Mouth: moist mucosa Lungs: normal respiratory effort Cardio: regular rate, good distal perfusion Abdomen: nondistended, no suprapubic distention or tenderness, no CVA tenderness Neurologic: Grossly normal Skin: No rashes or suspicious lesions Assessment/Plan Prior DLS pt 1. Mixed incontinence urge and stress (N39.46: Mixed incontinence) UUI>ANEL DM controlled, A1c 6.6 On lasix 20mg and HCTZ 12.5mg with a 50oz daily fluid restriction. Started on Oxybutynin ER 5mg qd at prior OV, titrated up to 15mg qd. BBS 10. marked improvement since starting Oxybutynin. no intolerable side effects noted. UA today shows trace leuks only. Unfortunately PVR 229 (13) mL. Advised pt she is not emptying well which is likely secondary to Oxybutynin. Will try decreasing to 10mg and see if this helps her empty better. -Decrease Oxybutynin ER 15mg qd to 10mg qd -F/u in 6 wks w/ PVR & reassess sx control Ordered: [id number] Measure Post Void residual urine and/or bladder capacity by US- non-imaging Complex E&M Add on G2211 E&M of Est. Patient Moderate 30-39 Min 89238 Urnls Dip Stick Auto w/o Microscopy POC 48635 2. Incomplete bladder emptying (R33.9: Retention of urine, unspecified) PVR 13ml at last ov but now 229ml after titrating Oxybutynin up to 15mg. see #1. 3. Hydronephrosis, right (N13.30: Unspecified hydronephrosis) CT AP wo con 03/31/23 - Mild Rt hydronephrosis. Suggestion of R ureteral urothelial thickening. Diffuse bladder wall thickening. May represent recently passed ureteral stone vs cystitis. No renal stones. MAURA 07/15/23 [facility] - No R hydro. No solid L cortical mass, hydro, or obstructing L renal stones. -hydro resolved. Ordered: [id number] Measure Post Void residual urine and/or bladder capacity by US- non-imaging Complex E&M Add on G2211 E&M of Est. Patient Moderate 30-39 Min 48791 Urnls Dip Stick Auto w/o Microscopy POC 53802 4. Bilateral renal cysts (N28.1: Cyst of kidney, acquired) MARUA 12/2022 - tiny, simple. MAURA 07/15/23 [facility] - 1.2 cm area of anechoic echogenicity in the RUP. A simple R parapelvic cyst is favored. -Simple cysts do not require monitoring Ordered: 87657 Measure Post Void residual urine and/or bladder capacity by US- non-imaging Complex E&M Add on G2211 E&M of Est. Patient Moderate 30-39 Min 09574 Urnls Dip Stick Auto w/o Microscopy POC 78307 Orders: oxybutynin, 10 mg = 1 tab(s), Oral, Daily, # 30 tab(s), Refills(s) 11, Pharmacy: [facility]5, 152.2, cm, 10/13/23 10:01:00 EDT, Height/Length Dosing, 80.6, kg, 10/13/23 10:01:00 EDT, Weight Dosing Follow-up With When Contact Information LAITH YI, VIVI Palacios, URL [address] [place] [address] [phone] Additional Instructions: 6 wks w/ PVR Patient Education Overactive Bladder, Adult Documentation recorded by the scribedgardo Jimenez accurately reflects the services(s) I performed and decisions made by me. Authenticated by Vivi Ozuna PA-C on 10/13/2023 10:58:41. I, Janet Jimenez, personally scribed for Vivi Ozuna PA-C on 10/13/2023 10:41:52. . Problem List/Past Medical History Ongoing Anemia of renal disease Anxiety Bilateral renal cysts BMI 32.0-32.9,adult Chronic kidney disease due to hypertension.. Chronic kidney disease stage 4 Combined systolic and diastolic heart failure Depression Diabetes Diverticulosis Edema of lower extremity Essential hypertension GERD (gastroesophageal reflux disease) HTN (hypertension) Hydronephrosis, right Hyperlipidemia Hypothyroidism Lymphedema Migraines Mixed incontinence urge and stress Obesity Osteoporosis Schizoaffective disorder Screenin (more content not included)... [facility] Comment on above: Result Comment: Elec tronically Signed By: VIVI OZUNA PA-C\.br\Date and Time Signed: 10/13/23 10:58 EDT\.br\Electronically Co-Signed By: Janet Jimenez\.br\Date and Time Co-Signed: 10/13/23 10:42 EDT RAD - Ultrasound Reporton RAD - Ultrasound Report [id number] #1.00TIFF [facility] Lab Reportson 07-03-2023 Lab Reports [id number] 5#1.00TIFF [facility] Lab Reports [id number] 1#1.00TIFF [facility] Physician Referralon 024 Physician Referral [id number] 4#1.00TIFF [facility] RAD - CT Reporton 07-03-2023 RAD - CT Report [id number] 3#1.00TIFF [facility] RAD - Ultrasound Reporton RAD - Ultrasound Report [id number] 0#1.00TIFF [facility] Screenson 07-03-2023 Screens [id number] #1.00TIFF [facility] Longterm Recordson 06-30 Longterm Records [id number] #1.00TIFF [facility] Ambulatory Visit Summaryon 0 06-30-2023 Ambulatory Visit Summary AVILA VALENZUELA :1950 Visit Date:06/30/2023 Ambulatory Visit Instructions Your Diagnosis Mixed incontinence urge and stress Bilateral renal cysts Hydronephrosis, right BMI 34.0-34.9,adult Your Care Team Attending Physician - LAITH YI, VIVI Palacios Primary Care Physician - DARRION ARMSTRONG [...] Hypothyroidism Lymphed (more content not included)... Normal [facility] Patient Educationon 06-30-19 Patient Education Nutrition [...] numbers. This can be done either in [place] ([place].S[place] or metric measurements. Note that charts and online BMI calculators are available to help you find your BMI quickly and easily without having to do these calculations yourself. To calculate your BMI in [place]adorean (U.S[place] measurements: 1. Measure your weight in [...] for Disease Control and Prevention: www.cdc.gov ? [place] Heart Association: www.heart.org ? National Heart, Lung, and Blood Power: www.nhlbi.nih.gov Summary ? Body mass index (BMI) is a number that is calculated from a person's weight and height. ? BMI may help estimate how much of a person's weight is composed of fat. BMI can help identify those who may be at higher risk for certain medical problems. ? BMI can be measured using Salvadorean measurements or metric measurements. ? BMI charts are used to identify whether you are underweight, normal weight, overweight, or obese. This information is not intended to replace advice given to you by your health care provider. Make sure you discuss any questions you have with your health care provider. Document Revised: 01/04/2020 Document Reviewed: 11/11/2019 [employer] Patient Education ? 2022 [employer]. [facility] Urology Office/Clinic Noteon 06-30-2023 [...] lowest daily dose and slowly titrate up W0zizhp as pt tolerates. I explained the most [...] ls of procedure prior to scheduling. Ordered: 50207 Measure Post Void residual urine and/or bladder capacity by US- non-imaging E&M of Est. Patient High 40-54 Min 00548 2. Bilateral renal cysts (N28.1: Cyst of kidney, acquired) MAURA Dec 2022 tiny, simple -no additional workup needed Ordered: E&M of Est. Patient High 40-54 Min 36917 US Renal 3. Hydronephrosis, right (N13.30: Unspecified [...] E&M of Est. Patient High 40-54 Min 86069 US Renal 4. BMI 34.0-34.9,adult (Z68.34: Body mass index [BMI] 34.0-34.9, adult) healthy diet encouraged Ordered: E&M of Est. Patient High 40-54 Min 49063 Orders: Body Mass Index (BMI) documented 3008F [...] Urnls Dip Stick Auto w/o Microscopy POC 80085 Total time spent reviewing previous notes/results/residential direct support professional al documents, prepar (more content not included)... Normal [facility] Comment on above: Result Comment: Elec tronically Signed By: VIVI OZUNA PA-C\.chin\Date and Time Signed: 06/30/23 12:51 EST Consent for Procedure/Surger peng 06-26-2023 Consent for Procedure/Surgery [id number] #1.00TIFF [facility] Ambulatory Visit Summaryon 0 06-24-2023 Ambulatory [...] Follow-Up Appointments Thursday 10:00 AM EST With: VIVI OZUNA PA-C Where: [facility] Facesheeton 06-24-2023 Facesheet [id number] 9#1.00TIFF [facility] Physician Referralon 024 Physician Referral [id number] #1.00TIFF Normal [facility] ABO/Rh History Checkon 04-18 ABO/Rh History Check Patient discharged prior Normal [facility] Comment on above: Performed By: #### 1 7863895, 0054646, 79918286, 19489377 ####[facility] [address] [place] [address] CT Head or Brain w/o Contras ton [...] Technologist: QUINCY Technical Comments Contrast: None Normal [facility] CT Spine Cervical w/o Contra ston [...] V. Transcribed by: GREG Technologist: QUINCY Normal [facility] Discharge Instructionson Discharge Instructions [id number] 8#1.00TIFF Normal [facility] ED Clinical Summaryon 2022 ED Clinical Summary [place] [id number] ED Clinical Summary Person Information Name: AVILA VALENZUELA/[facility] Age: 73 Years : 1950 Sex: Female Language: Salvadorean PCP: SAM KILLIAN, RICHARD Yu Marital Status: [...] 04/18/2023 00:43:24 04/18/2023 00:43:24 04/18/2023 00:43:24 ADDRESS: [address] [place] [address] [place] [address] [id number] [facility] DOC NOTES: MEDICAL INFORMATION: Prescriptions Given: [...] Follow up: With: Address: When: RICHARD VARGAS [address] [place] [address] [employer] (1) In 3 days 04/20/2023 Comments: Follow-up with your primary care provider in 3 to 5 days. If symptoms worsen, do not improve, or new symptoms arise please report back to emergency department for further evaluation. DIAGNOSIS: Closed head injury; Fall Normal [facility] ED Note-Physicianon 04-18-20 ED Note-Physician Basic Information Time Seen: Nate YI, Royal Beltran. 04/17/2023 20:31 Chief Complaint Pt arrrives [facility] for a fall. Pt states she [...] and Complexity of Problems Differential Diagnosis: [] [facility] Data External documents reviewed: [] [...] RICHARD VARGAS In 3 days 04/20/2023 EST [address] [place] [address] [facility] (1) Additional Instructions: Follow-up with your primary care provider in 3 to 5 days. If symptoms worsen, do not improve, or new symptoms arise please report back to emergency department for further evaluation. Patient Education Head Injury, Adult Attestation Patient seen (more content not included)... Normal [facility] Comment on above: Result Comment: Elec [...] Ask your health care provider for a dyql-hy-edkv plan for gradually returning to activities. ? [...] your friends, family, a trusted colleague, and industrial relations worker about your injury, symptoms, and restrictions. Have them watch for any new or worsening problems. General instructions ? Take jylr-ziq-ksiibal and prescription medicines only as told by your health care provider. ? Have someone stay with you for 24 hours after your head injury. This person should watch you for any changes in your symptoms and be ready to seek medical help. ? Keep all follow-up visits as told by your health care pr (more content not included)... Normal [facility] ED Patient Summaryon 023 ED Patient Summary [place] [id number] Patient Discharge Instructions Person Information Name: AVILA VALENZUELA Age: 73 Years Arrival Date: 04/17/2023 20:26:34 Discharge Diagnosis: Closed head injury; Fall Primary Care Physician: RICHARD VARGAS MD Provider Information Primary Provider: Nancy Stern DO Advanced Patient Service Coordinator:None The exam and treatment you received in the Emergency Department were for an urgent problem and are not intended as complete care. It is important that you follow up with a doctor, nurse practitioner, or physician?s college sports assistant for ongoing care. If your symptoms [...] Follow-up Instructions: With: Address: When: RICHARD VARGAS [address] [place] [address] Business (1) In 3 days 04/20/2023 Comments: [...] opioids can be used to help relieve pgfoqmkl-zf-ekaxei pain and are often prescribed following a [...] ? If you (more content not included)... [facility] ED Traumaon 04-18-2023 ED Trauma [id number] 6#1.00TIFF [facility] ABO/Rhon 04-17-2023 ABO/Rh Positive Invalid Interpretation Code [facility] Comment on above: Performed By: #### 1 5029682, 2648879, 66222814, 09932189 ####[facility] [address] [place] [address] ABSCon 04-17-2023 ABSC Gel Interp Negative Normal [facility] Comment on above: Performed By: #### 1 2970918, 5000557, 45056057, 80901885 ####[facility] [address] [facility] [place] [address] Auto Diffon 04-17-2023 Basophils/100 WBC (Bld) 1.2 % Normal 0.0-2.0 [facility] Comment on above: Order Comment: Order Added by Discern Expert. Performed By: #### 1 6658972, 5734297, 8062463, 7156049, 6868238, 6221151, 2889887, 55722977, 6844384 ####[facility] [address] [place] [address] Basophils/Leukocytes Auto (Bld) [Pure # fraction] 0.1 E9/L Normal 0.0-0.2 [facility] Comment on above: Order Comment: Order Added by Discern Expert. Performed By: #### 1 9864092, 9287084, 7828300, 7513208, 6294436, 2380535, 9677045, 27281385, 6241442 ####[facility] [address] [place] [address] Eosinophils/100 WBC (Bld) 1.3 % Normal 0.0-8.0 [facility] Comment on above: Order Comment: Order Added by Discern Expert. Performed By: #### 1 9258162, 0343703, 3326916, 8035018, 1787557, 6579256, 8150208, 33668434, 9290325 ####[facility] [address] [place] [address] Eosinophils/Leukocytes Auto (Bld) [Pure # fraction] 0.1 E9/L Normal 0.0-0.5 [facility] Comment on above: Order Comment: Order Added by Jason Expert. Performed By: #### 1 6572111, 3711125, 5474443, 5528744, 9851311, 6877311, 5795872, 82135727, 7564851 ####[place] [address] [place] [address] Lymphocytes/100 WBC (Bld) 23.6 % Normal 14.0-50.0 [facility] Comment on above: Order Comment: Order Added by Discern Expert. Performed By: #### 1 3753631, 4413490, 7797370, 7469794, 3950249, 1401111, 7281738, 32095083, 0608709 ####[place] [address] [place] [address] Lymphocytes/Leukocytes Auto (Bld) [Pure # fraction] 1.8 E9/L Normal 1.0-4.0 [facility] Comment on above: Order Comment: Order Added by Jason Expert. Performed By: #### 1 8623560, 7650639, 0679627, 0600906, 0978617, 0245933, 7720261, 54945921, 4568826 ####[place] [address] [place] [address] Monocytes/100 WBC (Bld) 10.1 % Normal 4.0-14.0 [facility] Comment on above: Order Comment: Order Added by Jason Expert. Performed By: #### 1 3852755, 2240292, 9446522, 0959940, 8778944, 9211494, 2941496, 40760541, 0429757 ####[place] [address] [place] [address] Monocytes/Leukocytes Auto (Bld) [Pure # fraction] 0.8 E9/L Normal 0.2-1.0 [facility] Comment on above: Order Comment: Order Added by Jason Expert. Performed By: #### 1 8016369, 3877150, 6215561, 3097941, 3294720, 7932448, 9561817, 86823292, 0173516 ####[facility] [address] [place] [address] Neutrophils/100 WBC (Bld) 63.8 % Normal 36.0-75.0 [facility] Comment on above: Order Comment: Order Added by Discern Expert. Performed By: #### 1 7145821, 1453899, 1076856, 5943013, 4243090, 2079982, 8344575, 85872697, 4225480 ####[facility] [address] [place] [address] Neutrophils/Leukocytes Auto (Bld) [Pure # fraction] 4.9 E9/L Normal 2.0-7.5 [facility] Comment on above: Order Comment: Order Added by Discern Expert. Performed By: #### 1 7601063, 2941250, 3416561, 2547689, 9884903, 6896031, 1322249, 55089264, 9933747 ####[facility] [address] [place] [address]57 BLOOD BANKOrdered By: Karina Stafford on 04-17-2023 ABO/Rh Interp Positive Invalid Interpretation Code [facility] BB Subsection ABSC Gel Interp Negative (04/17/23 8:42 PM) Normal [facility] BB Subsection BMPon 04-17-2023 Anion gap [Moles/Vol] 14 mmol/L Normal 6-16 [facility] Comment on above: Performed By: #### 1 8089369, 4069175, 7269567, 0308292, 9749690, 3219357, 0425723, 53125570, 7064297 ####[facility] [address] [place] [address] BUN/Creat Ratio 21 No Units High 10-20 [facility] Comment on above: Performed By: #### 1 6804775, 6677054, 4564772, 3809600, 2653692, 7284800, 4267700, 64986482, 0048201 ####[facility] [address] [place] [address] Calcium [Mass/Vol] 9.6 mg/dL Normal 8.9-11.1 [facility] Comment on above: Performed By: #### 1 9277931, 8031042, 3145805, 0909116, 7803471, 9567068, 0827375, 63203559, 6035160 ####[facility] [address] [place] [address] Chloride [Moles/Vol] 104 mmol/L Normal 101-111 [facility] Comment on above: Performed By: #### 1 6402065, 7450292, 0902198, 7188512, 3293366, 6782643, 8190215, 49175182, 6826627 ####[facility] [address] [place] [address] CO2 [Moles/Vol] 28 mmol/L Normal 21-31 [facility] Comment on above: Performed By: #### 1 1041189, 8734764, 8442312, 9843224, 3479556, 8161307, 4365665, 99186930, 8611783 ####[facility] [address] [place] [address] Creatinine [Mass/Vol] 1.7 mg/dL High 0.5-1.3 [facility] Comment on above: Performed By: #### 1 7945938, 2245089, 7773056, 1165015, 7934748, 2383097, 8579558, 66476249, 3154222 ####[facility] [address] [place] [address] Glucose [Mass/Vol] 135 mg/dL Normal 55-199 [facility] Comment on above: Performed By: #### 1 6071492, 1088441, 2283370, 6445798, 2051307, 2034872, 1104520, 69553764, 6288596 ####[facility] [address] [place] [address] Potassium [Moles/Vol] 3.7 mmol/L Normal 3.5-5.3 [facility] Comment on above: Performed By: #### 1 6658099, 2423065, 4794210, 7422511, 2951839, 1185158, 2703600, 67456274, 3328088 ####[facility] [address] [place] [address] Sodium [Moles/Vol] 142 mmol/L Normal 135-145 [facility] Comment on above: Performed By: #### 1 3637290, 1386657, 9144875, 4474886, 4479455, 9822445, 9560062, 17878112, 3149144 ####[facility] [address] [place] [address] Urea nitrogen [Mass/Vol] 36 mg/dL High 5-21 [facility] Comment on above: Performed By: #### 1 1861606, 4473025, 5974341, 1831813, 9334347, 4195879, 2017974, 19719953, 7110170 ####[place] [address] [place] [address] Blood Bank ID#on 04-17-2023 BBID# [id number] Invalid Interpretation Code [facility] Comment on above: Performed By: #### 1 1754010, 7360781, 04911115, 60552895 ####[place] [address] [place] [address] CBC w/ Auto Diffon 3 Erythrocyte distribution width (RBC) [Ratio] 13.8 % Normal 10.9-14.2 [facility] Comment on above: Performed By: #### 1 1490872, 5281316, 0054660, 8488475, 6003281, 1575151, 9807549, 68887589, 1504270 ####[place] [address] [place] [address] Hematocrit (Bld) [Volume fraction] 31.5 % Low 34.0-46.0 [facility] Comment on above: Performed By: #### 1 4647504, 7735230, 1996499, 4843655, 6198977, 6656620, 3616544, 94693435, 2742125 ####[address] [address] Hemoglobin (Bld) [Mass/Vol] 10.1 g/dL Low 12.0-16.0 [facility] Comment on above: Performed By: #### 1 5426677, 4072738, 7154664, 3066147, 1954367, 4247759, 4011208, 66988410, 4083808 ####[place] [address] MCH (RBC) [Entitic mass] 29.4 pg Normal 27.0-34.0 [facility] Comment on above: Performed By: #### 1 8069396, 2010173, 2456546, 0168394, 6618677, 2700809, 3258120, 56604204, 1269186 ####[address] [address] MCHC (RBC) [Mass/Vol] 32.1 g/dL Normal 31.4-36.0 [facility] Comment on above: Performed By: #### 1 3448017, 9962246, 8637351, 1983144, 2900400, 3355495, 8366486, 86137079, 8135177 ####[address] [address] MCV (RBC) [Entitic vol] 91.4 fL Normal 80.0-100.0 [facility] Comment on above: Performed By: #### 1 8901080, 9388429, 6380609, 5984957, 8349964, 1673750, 7434761, 48315730, 9643789 ####[address] [address] Platelet mean volume (Bld) [Entitic vol] 8.9 fL Normal 6.4-10.8 [facility] Comment on above: Performed By: #### 1 4037500, 5966264, 3260713, 2096472, 5734006, 1052344, 9608746, 88735601, 8876863 ####[address] [place] [address] Platelets (Bld) [#/Vol] 271.0 E9/L Normal 150.0-500.0 [facility] Comment on above: Performed By: #### 1 1850960, 2984997, 5575478, 0845394, 5074223, 8575365, 9709503, 68761451, 5762495 ####[facility] [address] [place] [address] RBC (Bld) [#/Vol] 3.4 E12/L Low 4.3-5.9 [facility] Comment on above: Performed By: #### 1 2380075, 9428535, 9356738, 5427055, 7887552, 8003806, 3311761, 66104080, 0217938 ####[facility] [address] [place] [address] WBC corrected for nucl RBC Auto (Bld) [#/Vol] 7.7 E9/L Normal 4.0-11.0 [facility] Comment on above: Performed By: #### 1 6074866, 5757929, 9172824, 7287032, 9959530, 1898825, 2162557, 19246413, 5490611 ####[facility] [address] [place] [address] CHEMISTRYOrdered By: Autumn Renteria on 04-17-2023 U [...] Sensitivity Troponin I Instructions For Use, Jessica Raymond, November 2017) Urea nitrogen [Mass/Vol] 36 mg/dL High 5 - 21 mg/dL Remisol Chem Urea nitrogen/Creatinine [Mass ratio] 21 mg/mg High 10 - 20 Remisol Chem COAGULATIONOrdered By: Hansa Grigsby on 04-17-2023 aPTT Coag (PPP) [Time] 32.6 s Normal 25.1 - 36.5 second(s) [facility] Auto Coag Comment [...] the same coagulation reagent and instrumentation as [facility]. Currently there are no coagulation studies available worldwide for children to 14 days, and no normal ranges. Heparin therapeutic range (represented by Anti-Factor Xa activity of 0.2 - 0.4 U/mL) corresponds to PTT of 56.6 - 109.0 sec. INR Coag (PPP) [Relative time] 1.2 {INR} Invalid Interpretation Code [facility] Auto Coag Comment on above: Interpretive Data: I NR results are specifically intended to assess patients stabilized on long-term Anticoagulation therapy suggested INR s Less Intensive Anticoagulation 2.0 3.0 Conventional Range 3.0 4.5 PT Coag (PPP) [Time] 13.1 s High 9.4 - 1 2.5 second(s) [facility] Auto Coag Comment [...] the same coagulation reagent and instrumentation as [facility]. Currently there are no coagulation studies available worldwide for children to 14 days, and no normal ranges. Consent for Treatmenton 03-28 Consent for Treatment [id number] #1.00TIFF Normal [facility] Ethanolon 04-17-2023 Ethanol Lvl 83 mg/dL Abnormal <=7 [facility] Comment on above: Result Comment: Crit ical Result S_ETOH:83 Called to and read back by: TAI BARBA at: 04/17/2023 21:19:24 by:CADY RENTERIA Critical Result Verified by Repeat Analysis Performed By: #### 2 849844 ####[facility] [address] [place] [address] HEMATOLOGYOrdered By: SYSTEM SYSTEM on 04-17-2023 Basophils/100 [...] 04-17-2023 Albumin [Mass/Vol] 4.1 g/dL Normal 3.3-5.0 [facility] Comment on above: Performed By: #### 1 1782343, 4875138, 2306899, 1888953, 3459697, 3584079, 5627880, 29837201, 0909247 ####[place] [address] [place] [address] Albumin/Globulin [Mass ratio] 1.2 {ratio} Normal 1.1-2.2 [facility] Comment on above: Performed By: #### 1 5819414, 4517051, 2290916, 9576014, 1534722, 5055636, 2554676, 65426905, 7127450 ####[place] [address] [place] [address] Alk Phos 68 Int._Unit/L Normal 21-98 [facility] Comment on above: Performed By: #### 1 1805471, 6850536, 6312966, 2080897, 7880216, 8904464, 5783077, 04950680, 7825609 ####[address] [address] ALT 14 Int._Unit/L Normal 6-46 [facility] Comment on above: Performed By: #### 1 6794928, 0198212, 7716501, 4926266, 6152851, 3057979, 1025496, 70345714, 1404732 ####[address] [address] AST 14 Int._Unit/L Normal 5-43 [facility] Comment on above: Performed By: #### 1 7844015, 8016341, 8467966, 8902365, 6793698, 7324932, 2096508, 46974373, 4145769 ####[place] [address] [place] [address] Bili Direct 0.2 mg/dL Normal 0.0-0.4 [facility] Comment on above: Performed By: #### 1 1410144, 2904773, 8674720, 0552535, 1853794, 3064254, 6375027, 86124309, 2694210 ####[facility] [address] [place] [address] Bili Indirect 0.6 mg/dL Normal 0.1-0.9 [facility] Comment on above: Performed By: #### 1 5094916, 4188397, 7719877, 3522646, 3903521, 6546976, 4394187, 92554376, 4927194 ####[facility] [address] [place] [address] Bili Total 0.8 mg/dL Normal 0.0-1.1 [facility] Comment on above: Performed By: #### 1 0459523, 8447249, 7266555, 8837731, 6117294, 9511595, 1688349, 89511194, 5905339 ####[facility] [address] [place] [address] Globulin (S) [Mass/Vol] 3.4 g/dL Normal 1.4-4.0 [facility] Comment on above: Performed By: #### 1 1076635, 1508396, 6120574, 7591275, 4400205, 7340890, 6204981, 60228578, 3899621 ####[facility] [address] [place] [address] Protein [Mass/Vol] 7.5 g/dL Normal 6.0-7.8 [facility] Comment on above: Performed By: #### 1 4474189, 2745888, 0746798, 5336511, 2919334, 6468467, 0336328, 50991339, 8595246 ####[facility] [address] [place] [address] Lactic Acidon 04-17-2023 Lactic Acid Lvl 2.1 mmol/L Normal 0.5-2.2 [facility] Comment on above: Performed By: #### 1 4067576, 3242547, 8188174, 8843518, 9413349, 1449274, 9492387, 39946867, 6558253 ####[facility] [address] [place] [address] Lipase Levelon 04-17-2023 Lipase Lvl 235 unit/L High 13-58 [facility] Comment on above: Performed By: #### 1 6897540, 2003559, 9462894, 9924990, 8357415, 4592969, 0022303, 66294220, 8949934 ####[facility] [address] [place] [address] Monitor Recordon 04-17-2023 Monitor Record [id number] 9#1.00TIFF Normal [facility] Monitor Record [id number] 3#1.00TIFF Normal [facility] Monitor Record [id number] 9#1.00TIFF Normal [facility] PT & PTTon 04-17-2023 aPTT Coag (PPP) [Time] 32.6 second(s) Normal 25.1-36.5 [facility] Comment on above: Result Comment: Para [...] the same coagulation reagent and instrumentation as [facility]. Currently there are no coagulation studies available worldwide for children to 14 days, and no normal ranges. Heparin therapeutic range (represented by Anti-Factor Xa activity of 0.2 - 0.4 U/mL) corresponds to PTT of 56.6 - 109.0 sec. Performed By: #### 1 0075959, 3815419, 5976906, 3176482, 6432851, 8775277, 5547711, 19446260, 3376096 ####[facility] [address] [place] [address] INR Coag (PPP) [Relative time] 1.2 {INR} Invalid Interpretation Code [facility] Comment on above: Result Comment: INR results are specifically intended to assess patients stabilized on long-term Anticoagulation therapy suggested INR?s ?Less Intensive Anticoagulation? 2.0 ? 3.0 Conventional Range 3.0 ? 4.5 Performed By: #### 1 7680914, 4891708, 1270297, 8463096, 3259655, 8722024, 1962651, 92849399, 6625037 ####[facility] [address] [place] [address] PT Coag (PPP) [Time] 13.1 second(s) High 9.4-12.5 [facility] Comment on above: Result Comment: 15 [...] the same coagulation reagent and instrumentation as [facility]. Currently there are no coagulation studies available worldwide for children to 14 days, and no normal ranges. Performed By: #### 1 4481423, 2760350, 6269391, 8690715, 9598924, 9953268, 0740362, 90869260, 6553025 ####[facility] [address] [place] [address] Pre-Arrival Noteon Pre-Arrival Note Pre-Arrival Summary Name: , [facility] Current Date: 04/17/2023 20:28:42 EST Gender: Female Date of : Age: 73 Pre-Arrival Type: EMS ETA: 04/17/2023 20:52:00 EST Primary Care Physician: Presenting Problem: Fall, Hit head Pre-Arrival User: Bernadine Littlejohn RN Referring Source: Location: [place] Completion Date/Time: 04/17/2023 20:22:00 [facility] Emergency Department Pre-Hospital Report Form Vital Signs: 107/54, 80HR, 97% RA Pre-Hospital Report: Fall, Hit head on table Treatment in Route: 2LAC Response to Treatment: Misc. Issues: Normal [facility] RAD - Preliminary Cat Scan R eporton 04-17-2023 RAD - Preliminary Cat Scan Report [id number] Normal [facility] Troponinon 04-17-2023 Troponin 8.90 pg/mL Low 10.10-27.10 [facility] Comment on above: Result Comment: The 95% CI (Confidence Interval) PPV (Positive Predictive Value) for myocardial infarction in females is 38 pg/mL, in males 51 pg/mL. The results should be used in conjunction with clinical conditions of myocardial infarction. (Access High Sensitivity Troponin I Instructions For Use, Jessica Jarrett, November 2017) Performed By: #### 1 [id number], [id number], [id number], [id number], [id number], [id number] ####[facility] [address] [place] [address] U Drug Screenon 04-17-2023 U Amph Scr Negative Invalid Interpretation Code [facility] Comment on above: Performed By: #### 2 [id number] ####[facility] [address] [place] [address] U Cookie Scr Negative Invalid Interpretation Code [facility] Comment on above: Performed By: #### 2 [id number] ####[facility] [address] [place] [address] U Benzodia Scr Negative Invalid Interpretation Code [facility] Comment on above: Performed By: #### 2 [id number] ####[facility] [address] [place] [address] U Cannab Scr Negative Invalid Interpretation Code [facility] Comment on above: Performed By: #### 2 [id number] ####[facility] [address] [place] [address] U Cocaine Scr Negative Invalid Interpretation Code [facility] Comment on above: Performed By: #### 2 [id number] ####[facility] [address] [place] [address] U Opiate Scr Negative Invalid Interpretation Code [facility] Comment on above: Performed By: #### 2 [id number] ####[facility] [address] [place] [address] U PCP Scr Negative Invalid Interpretation Code [facility] Comment on above: Performed By: #### 2 [id number] ####[facility] [address] [place] [address] eGFRon 04-17-2023 eGFR 31 mL/min/1.73 m2 Low >=59 [facility] Comment on above: Order Comment: Order added by Discern Expert. Performed By: #### 1 [id number], [id number], [id number], [id number], [id number], [id number], [id number] ####[facility] [address] [place] [address] GLYCOHEMOGLOBIN A1Con 2022 ADA RECOMMENDATION SEE BELOW Normal [facility] Comment on above: Result Comment: ADA RECOMMENDED LIMIT 4.0 - 6.0 ADA THERAPEUTIC TARGET < 7.0 ACTION SUGGESTED > 7.0 Performed By: #### A 1C #### [facility] [address] [address] [address] Vanessa Denis Glucose [Mass/Vol] 223 mg/dL Normal [facility] Comment on above: Performed By: #### A 1C #### [facility] [address] [place] [address] Dr. Vanessa Denis HbA1c (Bld) [Mass fraction] 9.4 % Critically high 4.5-6.2 [facility] Comment on above: Performed By: #### A 1C #### [facility] [address] [place] [address] Dr. Vanessa Denis PROF 14(COMP METB)on 023 Albumin [Mass/Vol] 3.4 g/dL Normal 3.4-5.0 [facility] Comment on above: Performed By: #### C MP #### [facility] [address] [place] [address] Dr. Vanessa Denis Albumin/Globulin [Mass ratio] 0.8 {ratio} Normal [facility] Comment on above: Performed By: #### C MP #### [facility] [address] [place] [address] Dr. Vanessa Denis ALP [Catalytic activity/Vol] 71 U/L Normal 46-116 [facility] Comment on above: Performed By: #### C MP #### [facility] [address] [place] [address] Dr. Vanessa Denis ALT [Catalytic activity/Vol] 25 U/L Normal 14-59 [facility] Comment on above: Performed By: #### C MP #### [facility] [address] [place] [address] Dr. Vanessa Denis Anion gap [Moles/Vol] 6.7 mmol/L Normal [facility] Comment on above: Performed By: #### C MP #### [facility] [address] [place] [address] Dr. Vanessa Denis AST [Catalytic activity/Vol] 19 U/L Normal 15-37 [facility] Comment on above: Performed By: #### C MP #### [facility] [address] [place] [address] Dr. Vanessa Denis Bilirubin [Mass/Vol] 0.9 mg/dL Normal 0.2-1.0 [facility] Comment on above: Performed By: #### C MP #### [facility] [address] [address] [address] Vanessa Denis Calcium [Mass/Vol] 9.5 mg/dL Normal 8.5-10.1 [facility] Comment on above: Performed By: #### C MP #### [facility] [address] [address] [address] Vanessa Denis Chloride [Moles/Vol] 102 mmol/L Normal 98-107 [facility] Comment on above: Performed By: #### C MP #### [facility] [address] [address] [address] Vanessa Denis CO2 [Moles/Vol] 35.2 mmol/L Critically high 21.0-32.0 [facility] Comment on above: Performed By: #### C MP #### [facility] [address] [address] [address] Vanessa Denis Creatinine [Mass/Vol] 1.23 mg/dL Critically high 0.55-1.02 [facility] Comment on above: Performed By: #### C MP #### [facility] [address] [address] [address] Vanessa Denis EGFR-AF TOGOLESE 52 mL/min/1.73m2 Critically low >=60 [facility] Comment on above: Performed By: #### C MP #### [facility] [address] [address] [address] Vanessa Denis EGFR-NON AF TOGOLESE 43 mL/min/1.73m2 Critically low >=60 [facility] Comment on above: Performed By: #### C MP #### [facility] [address] [address] [address] Vanessa Denis Globulin (S) [Mass/Vol] 4.1 g/dL Normal [facility] Comment on above: Performed By: #### C MP #### [facility] [address] [address] [address] Vanessa Denis Glucose [Mass/Vol] 267 mg/dL Critically high 74-106 [facility] Comment on above: Performed By: #### C MP #### [facility] [address] [address] [address] Vanessa Denis Potassium [Moles/Vol] 4.9 mmol/L Normal 3.5-5.1 [facility] Comment on above: Performed By: #### C MP #### [facility] [address] [address] [address] Vanessa Denis Protein [Mass/Vol] 7.5 g/dL Normal 6.4-8.2 [facility] Comment on above: Performed By: #### C MP #### [facility] [address] [address] [address] Vanessa Denis Sodium [Moles/Vol] 139 mmol/L Normal 136-145 [facility] Comment on above: Performed By: #### C MP #### [facility] [address] [address] [address] Vanessa Denis Urea nitrogen [Mass/Vol] 26.0 mg/dL Critically high 7.0-18.0 [facility] Comment on above: Performed By: #### C MP #### [facility] [address] [address] [address] Vanessa Denis Urea nitrogen/Creatinine [Mass ratio] 21.1 mg/mg Normal [facility] Comment on above: Performed By: #### C MP #### [facility] [address] [address] [address] Vanessa Denis CTA CHEST WO W [...] TWYLA CONTEH Date: 2022-05-30 14:23 Normal [facility] GLYCOHEMOGLOBIN A1Con 2022 ADA RECOMMENDATION SEE BELOW Normal [facility] Comment on above: Result Comment: ADA RECOMMENDED LIMIT 4.0 - 6.0 ADA THERAPEUTIC TARGET < 7.0 ACTION SUGGESTED > 7.0 Performed By: #### A 1C #### [facility] [address] [place] [address] Dr. Vanessa Denis Glucose [Mass/Vol] 203 mg/dL Normal [facility] Comment on above: Performed By: #### A 1C #### [facility] [address] [place] [address] Dr. Vanessa Denis HbA1c (Bld) [Mass fraction] 8.7 % Critically high 4.5-6.2 [facility] Comment on above: Performed By: #### A 1C #### [facility] [address] [place] [address] Dr. Vanessa Denis HEMOGRAM AND PLATELon 2022 Hematocrit (Bld) [Volume fraction] 45.4 % Normal 36.0-48.0 [facility] Comment on above: Performed By: #### H H #### [facility] [address] [place] [address] Dr. Vanessa Denis Hemoglobin (Bld) [Mass/Vol] 14.5 g/dL Normal 12.0-16.0 [facility] Comment on above: Performed By: #### H H #### [facility] [address] [address] [address] Vanessa Denis MCH (RBC) [Entitic mass] 29.0 pg Normal 26.7-34.0 [facility] Comment on above: Performed By: #### H H #### [facility] [address] [place] [address] Dr. Vanessa Denis MCHC (RBC) [Mass/Vol] 31.9 g/dL Normal 29.9-35.2 [facility] Comment on above: Performed By: #### H H #### [facility] [address] [address] [address] Vanessa Denis MCV (RBC) [Entitic vol] 90.8 fL Normal 81.0-99.0 [facility] Comment on above: Performed By: #### H H #### [facility] [address] [address] [address] Vanessa Denis PLT 164 103/ul Normal 150-450 [facility] Comment on above: Performed By: #### H H #### [facility] [address] [address] [address] Vanessa Denis RBC 5.00 106/ul Normal 4.20-5.40 [facility] Comment on above: Performed By: #### H H #### [facility] [address] [place] [address] Dr. Vanessa Denis WBC 7.6 103/ul Normal 4.0-11.0 [facility] Comment on above: Performed By: #### H H #### [facility] [address] [place] [address] Dr. Vanessa Denis LIPID PROFILEon 05-30-2022 CHOL-HDL RATIO NORM SEE BELOW Normal [facility] Comment on above: Result Comment: 3.3 - 4.4 LOW RISK 4.4 - 7.1 AVERAGE RISK 7.1 - 11.0 MODERATE RISK >11.0 HIGH RISK Performed By: #### L IPID, TSH #### [facility] [address] [place] [address] Dr. Vanessa Denis Cholesterol [Mass/Vol] 110 mg/dL Normal <=200 [facility] Comment on above: Performed By: #### L IPID, TSH #### [facility] [address] [place] [address] Dr. Vanessa Denis Cholesterol in HDL [Mass/Vol] 51 mg/dL Normal 40-60 [facility] Comment on above: Performed By: #### L IPID, TSH #### [facility] [address] [place] [address] Dr. Vanessa Densi Cholesterol in LDL [Mass/Vol] 39.4 mg/dL Normal [facility] Comment on above: Performed By: #### L IPID, TSH #### [facility] [address] [address] [address] Vanessa Denis Cholesterol.total/Chol esterol in HDL [Mass ratio] 2.2 {ratio} Normal [facility] Comment on above: Performed By: #### L IPID, TSH #### [facility] [address] [address] [address] Vanessa Denis HDL NORMAL > or = 60 mg/dl - LOW CARDIOVASCULAR RISK <40 mg/dl - HIGH CARDIOVASCULAR RISK Normal [facility] Comment on above: Performed By: #### L IPID, TSH #### [facility] [address] [place] [address] Dr. Vanessa Denis LDL CALC NORMAL SEE BELOW Normal [facility] Comment on above: Result Comment: <100 mg/dl OPTIMAL 100 - 129 mg/dl NEAR OR ABOVE OPTIMAL 130 - 159 mg/dl BORDERLINE HIGH 160 - 189 mg/dl HIGH >190 mg/dl VERY HIGH Performed By: #### L IPID, TSH #### [facility] [address] [place] [address] Dr. Vanessa Denis Triglyceride [Mass/Vol] 98 mg/dL Normal <=150 [facility] Comment on above: Performed By: #### L IPID, TSH #### [facility] [address] [place] [address] Dr. Vanessa Denis VLDL CALC 19.6 mg/dL Normal [facility] Comment on above: Performed By: #### L IPID, TSH #### [facility] [address] [address] [address] Vanessa Denis PROF 14(COMP METB)on 023 Albumin [Mass/Vol] 3.4 g/dL Normal 3.4-5.0 [facility] Comment on above: Performed By: #### C MP #### [facility] [address] [place] [address] Dr. Vanessa Denis Albumin/Globulin [Mass ratio] 0.9 {ratio} Normal [facility] Comment on above: Performed By: #### C MP #### [facility] [address] [address] [address] Vanessa Denis ALP [Catalytic activity/Vol] 68 U/L Normal 46-116 [facility] Comment on above: Performed By: #### C MP #### [facility] [address] [address] [address] Vanessa Denis ALT [Catalytic activity/Vol] 23 U/L Normal 14-59 [facility] Comment on above: Performed By: #### C MP #### [facility] [address] [address] [address] Vanessa Denis Anion gap [Moles/Vol] 10.1 mmol/L Normal [facility] Comment on above: Performed By: #### C MP #### [facility] [address] [place] [address] Dr. Vanessa Denis AST [Catalytic activity/Vol] 21 U/L Normal 15-37 [facility] Comment on above: Performed By: #### C MP #### [facility] [address] [place] [address] Dr. Vanessa Denis Bilirubin [Mass/Vol] 0.9 mg/dL Normal 0.2-1.0 [facility] Comment on above: Performed By: #### C MP #### [facility] [address] [place] [address] Dr. Vanessa Denis Calcium [Mass/Vol] 9.2 mg/dL Normal 8.5-10.1 [facility] Comment on above: Performed By: #### C MP #### [facility] [address] [place] [address] Dr. Vanessa Denis Chloride [Moles/Vol] 101 mmol/L Normal 98-107 [facility] Comment on above: Performed By: #### C MP #### [facility] [address] [place] [address] Dr. Vanessa Denis CO2 [Moles/Vol] 31.5 mmol/L Normal 21.0-32.0 [facility] Comment on above: Performed By: #### C MP #### [facility] [address] [address] [address] Vanessa Denis Creatinine [Mass/Vol] 1.15 mg/dL Critically high 0.55-1.02 [facility] Comment on above: Performed By: #### C MP #### [facility] [address] [address] [address] Vanessa Denis EGFR-AF TOGOLESE 56 mL/min/1.73m2 Critically low >=60 [facility] Comment on above: Performed By: #### C MP #### [facility] [address] [address] [address] Vanessa Denis EGFR-NON AF TOGOLESE 46 mL/min/1.73m2 Critically low >=60 [facility] Comment on above: Performed By: #### C MP #### [facility] [address] [address] [address] Vanessa Denis Globulin (S) [Mass/Vol] 4.0 g/dL Normal [facility] Comment on above: Performed By: #### C MP #### [facility] [address] [address] [address] Vanessa Denis Glucose [Mass/Vol] 254 mg/dL Critically high 74-106 [facility] Comment on above: Performed By: #### C MP #### [facility] [address] [address] [address] Vanessa Denis Potassium [Moles/Vol] 4.6 mmol/L Normal 3.5-5.1 [facility] Comment on above: Performed By: #### C MP #### [facility] [address] [address] [address] Vanessa Denis Protein [Mass/Vol] 7.4 g/dL Normal 6.4-8.2 [facility] Comment on above: Performed By: #### C MP #### [facility] [address] [address] [address] Vanessa Denis Sodium [Moles/Vol] 138 mmol/L Normal 136-145 [facility] Comment on above: Performed By: #### C MP #### [facility] [address] [address] [address] Vanessa Denis Urea nitrogen [Mass/Vol] 24.0 mg/dL Critically high 7.0-18.0 [facility] Comment on above: Performed By: #### C MP #### [facility] [address] [address] [address] Vanessa Denis Urea nitrogen/Creatinine [Mass ratio] 20.9 mg/mg Normal [facility] Comment on above: Performed By: #### C MP #### [facility] [address] [address] [address] Vanessa Denis TSHon 05-30-2022 TSH 2.067 uIU/mL Normal 0.358-3.740 [facility] Comment on above: Performed By: #### L IPID, TSH #### [facility] [address] [address] [address] Vanessa Denis Vital Signs Date Time Vital Sign Value Performing Clinician Facility 10-13-2023 10:00-0400 Blood Pressure Location VIVI OZUNA [facility] 10-13-2023 10:00-0400 Body temperature 98.06 [degF] VIVI OZUNA [facility] 10-13-2023 10:00-0400 Diastolic blood pressure 78 mm[Hg] VIVI OZUNA [facility] 10-13-2023 10:00-0400 Heart rate 78 /min VIVI OZUNA [facility] 10-13-2023 10:00-0400 Systolic blood pressure 116 mm[Hg] VIVI OZUNA [facility] 06-24-2023 13:52-0500 Blood Pressure Location Doug FERNANDEZ [facility] 06-24-2023 13:52-0500 Diastolic blood pressure 78 mm[Hg] Doug NILL [facility] 06-24-2023 13:52-0500 Heart rate 68 /min Doug NILL [facility] 06-24-2023 13:52-0500 Respiratory rate 16 /min Doug NILL [facility] 06-24-2023 13:52-0500 Systolic blood pressure 110 mm[Hg] Doug NILL [facility] 06-09-2023 11:52-0500 Body height 152.4 cm Dg Proctor MD Work Phone: [facility] 06-09-2023 11:52-0500 Body mass index (BMI) [Ratio] 32.42 kg/m2 Dg Proctor MD Work Phone: [facility] 06-09-2023 11:52-0500 Body weight 75.3 kg Dg Proctor MD Work Phone: [facility] 04-18-2023 00:39-0500 Diastolic blood pressure 95 mm[Hg] Kaylinn Dokken [facility] 04-18-2023 00:39-0500 Heart rate 74 /min Karynaylinn Dokken [facility] 04-18-2023 00:39-0500 Mean blood pressure 117 mm[Hg] Kaylinn Dokken [facility] 04-18-2023 00:39-0500 Respiratory rate 22 /min Karynaylinn Dokken [facility] 04-18-2023 00:39-0500 SaO2% (BldA) [Mass fraction] 97 % Kaylinn Dokken [facility] 04-18-2023 00:39-0500 Systolic blood pressure 161 mm[Hg] Kaylinn Dokken [facility] 04-17-2023 23:43-0500 Diastolic blood pressure 71 mm[Hg] Kaylinn Dokken [facility] 04-17-2023 23:43-0500 Heart rate 63 /min Kaylinn Dokken [facility] 04-17-2023 23:43-0500 Mean blood pressure 98 mm[Hg] Kaylinn Dokken [facility] 04-17-2023 23:43-0500 Respiratory rate 15 /min Kaylinn Dokken [facility] 04-17-2023 23:43-0500 SaO2% (BldA) [Mass fraction] 96 % Kaylinn Dokken [facility] 04-17-2023 23:43-0500 Systolic blood pressure 151 mm[Hg] Kaylinn Dokken [facility] 04-17-2023 23:23-0500 Body temperature 97.88 [degF] Kaylinn Dokken [facility] 04-17-2023 23:23-0500 Diastolic blood pressure 82 mm[Hg] Kaylinn Dokken [facility] 04-17-2023 23:23-0500 Heart rate 68 /min Kaylinn Dokken [facility] 04-17-2023 23:23-0500 Mean blood pressure 99 mm[Hg] Kaylinn Dokken [facility] 04-17-2023 23:23-0500 Respiratory rate 20 /min Kaylinn Dokken [facility] 04-17-2023 23:23-0500 SaO2% (BldA) [Mass fraction] 94 % Kaylinn Dokken [facility] 04-17-2023 23:23-0500 Systolic blood pressure 134 mm[Hg] Kaylinn Dokken [facility] 04-17-2023 22:39-0500 Respiratory rate 18 /min Kaylinn Dokken [facility] 04-17-2023 21:50-0500 Respiratory rate 18 /min Kaylinn Dokken [facility] 04-17-2023 20:50-0500 Body temperature 98.06 [degF] Kaylinn Dokken [facility] 04-17-2023 20:50-0500 Heart rate 72 /min Kaylinn Dokken [facility] 04-17-2023 20:50-0500 Respiratory rate 18 /min Kaylinn Dokken [facility] 04-17-2023 20:29-0500 Body temperature 98.06 [degF] Kaylinn Dokken [facility] 04-17-2023 20:29-0500 Heart rate 76 /min Kaylinn Dokken [facility] 02-23-2023 13:40-0400 Body height 152.4 cm Nicolás Orlando Other [facility] Other 02-23-2023 13:40-0400 Body mass index (BMI) [Ratio] 34.72 kg/m2 Nicolás Orlando Other [facility] Other 02-23-2023 13:40-0400 Body temperature 96.8 [degF] Nicolás Orlando Other [facility] Other 02-23-2023 13:40-0400 Body weight 80.65 kg Nicolás Orlando Other [facility] Other 02-23-2023 13:40-0400 Diastolic blood pressure 82 mm[Hg] Nicolás Orlando Other [facility] Other 02-23-2023 13:40-0400 Respiratory rate 20 /min Nicolás Orlando Other [facility] Other 02-23-2023 13:40-0400 SaO2% (BldA) [Mass fraction] 99 % Nicolás Orlando Other [facility] Other 02-23-2023 13:40-0400 Systolic blood pressure 132 mm[Hg] Nicolás Orlando Other [facility] Other 12-31-2022 09:00-0400 Body height 152.4 cm Nicolás Orlando Other [facility] Other 12-31-2022 09:00-0400 Body mass index (BMI) [Ratio] 32.14 kg/m2 Nicolás Orlando Other [facility] Other 12-31-2022 09:00-0400 Body temperature 96.3 [degF] Nicolás Orlando Other [facility] Other 12-31-2022 09:00-0400 Body weight 74.66 kg Nicolás Orlando Other [facility] Other 12-31-2022 09:00-0400 Diastolic blood pressure 56 mm[Hg] Nicolás Orlando Other [facility] Other 12-31-2022 09:00-0400 Respiratory rate 20 /min Nicolás Orlando Other [facility] Other 12-31-2022 09:00-0400 SaO2% (BldA) [Mass fraction] 98 % Nicolás Orlando Other [facility] Other 12-31-2022 09:00-0400 Systolic blood pressure 91 mm[Hg] Nicolás Orlando Other [facility] Other Encounters Encounter Date Encounter Type Care Provider Facility Start: 11-24-2023 ambulatory DARRION SHAMMO Facility:[facility] Start: 10-13-2023 End: 10-13-2023 ambulatory DARRION SHAMMO Facility:[facility] Start: 10-13-2023 End: 10-13-2023 Patient encounter procedure VIVI OZUNA [facility] Start: 09-08-2023 End: 09-08-2023 ambulatory DG PROCTOR Not Available Start: 06-30-2023 End: 06-30-2023 ambulatory DARRION SHAMMO Facility:[facility] Start: 06-24-2023 End: 06-24-2023 ambulatory Doug FERNANDEZ Facility:[facility] Start: 06-24-2023 End: 06-24-2023 Patient encounter procedure Doug FERNANDEZ [facility] Start: 06-09-2023 Kerri Proctor MD Work Phone: [facility] Start: 06-09-2023 Bamboo flowsheet Dg Proctor MD Work Phone: [facility] Start: 06-09-2023 End: 06-09-2023 ambulatory DG PROCTOR Not Available Start: 06-09-2023 End: 06-09-2023 Office outpatient new 45 minutes Dg Proctor MD Work Phone: [facility] Comment on above: Sequelae of cerebral infarction (Primary Dx); Polyneuropathy Start: 05-25-2023 ambulatory [facility] Facility:[facility] Start: 05-21-2023 End: 05-21-2023 ambulatory Nicolás Orlando Other [facility] Other Start: 05-21-2023 Office outpatient vi sit 25 minutes Nicolás Orlando [facility] Start: 04-17-2023 End: 04-18-2023 Emergency department patient visit Nancy Stern [facility] Start: 04-08-2023 End: 04-08-2023 ambulatory Nicolás Orlando Other [facility] Other Start: 04-08-2023 Telephone encounter Nicolás Orlando [facility] Start: 02-27-2023 [facility] Facility:Edgardo [facility] Start: 02-23-2023 End: 02-23-2023 ambulatory Nicolás Orlando Other [facility] Other Start: 02-23-2023 Office outpatient vi sit 25 minutes Nicolás Orlando [facility] Start: 12-31-2022 End: 12-31-2022 ambulatory Nicolás Orlando Other [facility] Other Start: 12-31-2022 Office outpatient ne w 45 minutes Nicolás Orlando [facility] Start: 08-13-2022 End: 08-13-2022 ambulatory DARRION SHAMMO Facility:[facility] Start: 08-11-2022 End: 08-11-2022 ambulatory DARRION SHAMMO Facility:[facility] Start: 05-30-2022 End: 05-31-2022 ambulatory DARRION SHAMMO Facility:[facility] Start: 05-28-2022 End: 05-28-[address] JENIFER CASTILLO Facility:[facility] Start: 07-08-2021 End: 02-03-2022 ambulatory [facility] Procedures Date Procedure Procedure Detail Performing Clinician Start: 07-19-2020 Cystourethroscopy wi th dilation of urethral stricture VIVI DAMONRY Start: 05-19-2013 Colonoscopy Doug CAMILO Colonoscopy Nancy [...] 65+ Years (3 - PPSV23 or PCV20) [facility] Start: 03-07-2024 Pneumococcal Vaccine : 65+ Years (3 of 3 - PPSV23 or PCV20) Pneumococcal Vaccine: 65+ Years (3 of 3 - PPSV23 or PCV20) [facility] Start: 09-08-2023 End: 09-08-2023 Patient encounter procedure 09/08/2023 1:45 PM EDT Office Visit [facility] [address] [place] [address] Dg Proctor MD [address] [address] [facility] Start: 1950 Medicare Annual Well ness (AWV) Medicare Annual Wellness (AWV) [facility] Start: 1950 Screening for malign ant neoplasm of colon [facility] Immunizations Immunization Date Immunization Notes Care Provider Fa cility 02-19-2023 influenza virus vaccine, unspecified formulation Doug NILL [facility] [place] 02-06-2022 SARS-CoV-2 (COVID-19 ) mRNAMUL.[id number] Doug NILL [facility] [place] 05-06-2021 SARS-CoV-2 (COVID-19 ) mRNA BNT-162b2 vax Doug NILL [facility] [place] 07-06-2020 SARS-CoV-2 (COVID-19 ) Ad26 vaccine, recombinant Doug NILL [facility] [place] Payers Date Payer Category Payer Medicaid MEDICAID [facility] [id number] 2021-Present [phone] [address] [place] [address] Medicaid [id number] 2020 Private Health Insurance [id number] 2013 Medicare MEDICARE MEDICAR E PART B [id number] 2013-Present [address] [address] [place] [address] Medicare [id number] 1959 Medicaid [id number] 1959 Medicare [id number] 1948 Unknown [id number] [id number] 93 1948 Unknown [id number] 2.16.840.1.366896.3.579.2.5 93 1948 Unknown [id number] 2.16.840.1.760730.3.579.2.5 93 1948 Unknown [id number] 2.16.840.1.359938.3.579.2.5 93 1948 Unknown [id number] 2.16.840.1.150027.3.579.2.5 93 1948 Unknown [id number] 2.16.840.1.669747.3.579.2.1 259 1948 Unknown [id number] 2.16.840.1.414948.3.579.2.1 259 1948 Unknown [id number] 2.16.840.1.488212.3.579.2.7 27 1948 Unknown [id number] 2.16.840.1.203141.3.579.2.7 27 1948 Unknown [id number] 2.16.840.1.449199.3.579.2.7 27 1948 Unknown [id number] 2.16.840.1.276169.3.579.2.7 27 1948 Unknown [id number] 2.16.840.1.080843.3.579.2.7 27 1948 Unknown [id number] 2.16.840.1.038155.3.579.2.7 27 Social History Date Type Detail Facility Unknown if ever smoked [facility] Other Sex Assigned At [facility] Start: 07-10-2020 End: 10-13-2023 Tobacco smoking status Ex-smoker (finding) [facility] Tobacco smoking status RIIS Tobacco smoking consumption unknown [facility] Start: 1950 Sex Assigned At Not on file [facility] Tobacco smoking status Never [facility] [place] Functional Status Date Assessment Result Facility 10-13-2023 Functional Status N/A [facility] 06-24-2023 [facility] Status N[facility] Functional Status N/A [facility] Clinical Notes 12-31-2022 to 10-13-2023 Dg Proctor MD - 06/09/2023 12:27 PM Zena Proctor MD - 06/09/2023 12:26 PM Zena Proctor MD - 06/09/2023 11:15 AM EST Note Date & Type Note Facility 10-13-2023 Hospital Discharge instructions Patient Education 10/13/2023 10:40:27 Overactive Bladder, Adult Overactive Bladder, Adult Overactive bladder is a condition in which a person has a sudden and frequent need to urinate. A person might also leak urine if he or she cannot get to the bathroom fast enough (urinary incontinence). Sometimes, symptoms can interfere with work or social activities. What are the causes? Overactive bladder is associated with poor nerve signals between your bladder and your brain. Your bladder may get the signal to empty before it is full. You may also have very sensitive muscles that make your bladder squeeze too soon. This condition may also be caused by other factors, such as: Medical conditions: ?Urinary tract infection. ?Infection of nearby tissues. ?Prostate enlargement. ?Bladder stones, inflammation, or tumors. ?Diabetes. ?Muscle or nerve weakness, especially from these conditions: ?A spinal cord injury. ?Stroke. ?Multiple sclerosis. ?Parkinson's disease. Other causes: ?Surgery on the uterus or urethra. ?Drinking too much caffeine or alcohol. ?Certain medicines, especially those that eliminate extra fluid in the body (diuretics). ?Constipation. What increases the risk? You may be at greater risk for overactive bladder if you: Are an older adult. Smoke. Are going through menopause. Have prostate problems. Have a neurological disease, such as stroke, dementia, Parkinson's disease, or multiple sclerosis (MS). Eat or drink alcohol, spicy food, caffeine, and other things that irritate the bladder. Are overweight or obese. What are the signs or symptoms? Symptoms of this condition include a sudden, strong urge to urinate. Other symptoms include: Leaking urine. Urinating 8 or more times a day. Waking up to urinate 2 or more times overnight. How is this diagnosed? This condition may be diagnosed based on: Your symptoms and medical history. A physical exam. Blood or urine tests to check for possible causes, such as infection. You may also need to see a health care provider who specializes in urinary tract problems. This is called a urologist. How is this treated? Treatment for overactive bladder depends on the cause of your condition and whether it is mild or severe. Treatment may include: Bladder training, such as: ?Learning to control the urge to urinate by following a schedule to urinate at regular intervals. ?Doing Kegel exercises to strengthen the pelvic floor muscles that support your bladder. Special devices, such as: ?Biofeedback. This uses sensors to help you become aware of your body's signals. ?Electrical stimulation. This uses electrodes placed inside the body (implanted) or outside the body. These electrodes send gentle pulses of electricity to strengthen the nerves or muscles that control the bladder. ?Women may use a plastic device, called a pessary, that fits into the vagina and supports the bladder. Medicines, such as: ?Antibiotics to treat bladder infection. ?Antispasmodics to stop the bladder from releasing urine at the wrong time. ?Tricyclic antidepressants to relax bladder muscles. ?Injections of botulinum toxin type A directly into the bladder tissue to relax bladder muscles. Surgery, such as: ?A device may be implanted to help manage the nerve signals that control urination. ?An electrode may be implanted to stimulate electrical signals in the bladder. ?A procedure may be done to change the shape of the bladder. This is done only in very severe cases. Follow these instructions at home: Eating and drinking Make diet or lifestyle changes recommended by your health care provider. These may include: ?Drinking fluids throughout the day and not only with meals. ?Cutting down on caffeine or alcohol. ?Eating a healthy and balanced diet to prevent constipation. This may include: ?Choosing foods that are high in fiber, such as beans, whole grains, and fresh fruits and vegetables. ?Limiting foods that are high in fat and processed sugars, such as fried and sweet foods. Lifestyle Lose weight if needed. Do not use any products that contain nicotine or tobacco. These include cigarettes, chewing tobacco, and vaping devices, such as e-cigarettes. If you need help quitting, ask your health care provider. General instructions Take zlhw-pwr-mfmlfht and prescription medicines only as told by your health care provider. If you were prescribed an antibiotic medicine, take it as told by your health care provider. Do not stop taking the antibiotic even if you start to feel better. Use any implants or pessary as told by your health care provider. If needed, wear pads to absorb urine leakage. Keep a log to track how much and when you drink, and when you need to urinate. This will help your health care provider monitor your condition. Keep all follow-up visits. This is important. Contact a health care provider if: You have a fever or chills. Your symptoms do not get better with treatment. Your pain and discomfort get worse. You have more frequent urges to urinate. Get help right away if: You are not able to control your bladder. Summary Overactive bladder refers to a condition in which a person has a sudden and frequent need to urinate. Several conditions may lead to an overactive bladder. Treatment for overactive bladder depends on the cause and severity of your condition. Making lifestyle changes, doing Kegel exercises, keeping a log, and taking medicines can help with this condition. This information is not intended to replace advice given to you by your health care provider. Make sure you discuss any questions you have with your health care provider. Document Revised: 12/31/2020 Document Reviewed: 12/31/2020 [email or web address] Patient Education 2022 [employer]. Follow Up Care 06/30/2023 10:55:11 With:VIVI OZUNA PA-C, URL Address: [address] [place], [place] [address] [address] [phone] When: Unknown Comments:6 wks w/ PVR [facility] 06-24-2023 Note Chief Complaint consultation for colonoscopy [...] mg= 1 tab(s), Oral, Daily Vitamin D3, 23275 unit(s), Oral, qWeek Zoloft 25 mg Tab, [...] virus vaccine, inactivated 02/19/2023 Recorded SARS-CoV-2 (COVID-19) mRNAMUL.[id number] 02/06/2022 Recorded SARS-CoV-2 (COVID-19) mRNA BNT-162b2 vax (more content not included)... [facility] Comment on above: Result Comment: Elec tronically Signed By: REBECCA KILLIAN, Doug Dominique\Date and Time Signed: 06/24/23 14:18 EST 06-09-2023 History of Present illness Narrative Associated Problem(s): Polyneuropathy TSH + fT4. Emphasized good A1c control. Associated Problem(s): Sequelae of cerebral infarction Echo c bubble study. ([place] or [place]). US carotids ([facility]). (Continue ASA.) Images from the original note were not included. Outpatient Progress Note Prev Appt: Visit date not found Chief Complaint Patient presents with Memory Loss Assessment and Plan - Sequelae of cerebral infarction Echo c bubble study. ([place] or [place]). US carotids ([facility]). (Continue ASA.) Polyneuropathy TSH [...] Nov, hemipar R face & hand. -> [facility]. Known DM. Onset Semeiology Imaging US carotids (03/2020, [place]) - < 50% B CT head (12/2019, [place]) - neg Testing Surgery Failed Dx PN [...] mouth in the morning. D3-50 1.25 MG (44742 UT) capsule ferrous sulfate 325 (65 Fe) [...] as of 06/09/2023. documented in this encounter [facility] 05-21-2023 Evaluation note Encounter Date Diagnosis [...] She will benefit with SGLT2 inhibitors including Arnaud Vickers. Will defer this decision to the PCP. [...] and no personal patient information was compromised. [employer] Other 12-23-2023 Hospital Discharge instructions Patient Education [...] Ask your health care provider for a zptl-qz-sbzg plan for gradually returning to activities. Ask [...] your friends, family, a trusted colleague, and industrial relations worker about your injury, symptoms, and restrictions. Have them watch for any new or worsening problems. General instructions Take qzuy-tmy-xpjcoya and prescription medicines only as told by [...] provider. Document Revised: 02/24/2020 Document Reviewed: 02/24/2020 [email or web address] Patient Education 2022 [employer]. Follow Up Care 04/17/2023 20:26:54 With:RICHARD VARGAS Address: [address] [facility] (1) When:04/20/2023 Comments:Follow-up with your primary care provider in 3 to 5 days. If symptoms worsen, do not improve, or new symptoms arise please report back to emergency department for further evaluation. [facility]12-22-2023 Evaluation + Plan noteExtracted from: Title:ED Note [...] Future Appointments Appointment Date:06/30/2023 10:00:00 AM Scheduled Provider:VIVI OZUNA PA-C Location:[facility] Appointment Type:URO Office Visit [facility]10-30-2023 Evaluation note* Encounter Date Diagnosis Assessment Notes [...] recent gout flare. Continue monitor without medications. [employer] Other [id number] Evaluation note* Encounter Date Diagnosis Assessment Notes [...] We will check also for paraproteinemia work-up. [employer] Other Evaluation + Plan note Future Appointments Appointment Date:06/30/2023 10:00:00 AM Scheduled Provider:VIVI OZUNA PA-C Location:[facility] Appointment Type:URO Office Visit [facility] [place] Evaluation + Plan note Future Appointments Appointment Date:11/24/2023 11:00:00 AM Scheduled Provider:VIVI OZUNA PA-C Location:[facility] Appointment Type:URO Office Visit [facility] evaluation noteNo InformationNort General Specific Other Evaluation note* Diagnosis Sequelae of cerebral [...] TONSILLECTOMY AND ADENOIDECTOMY Hospitalization History SEE ABOVE [facility] Other History general Narrative - Reported* Type [...] TONSILLECTOMY AND ADENOIDECTOMY Hospitalization History SEE ABOVE [facility] Other Hospital course Narrative No data available for this section [facility] No data available for this section [facility] [place] Progress note No data available for this section [facility] Summary Purpose Family History No Family History [...] section and content) DATE CREATED AUTHOR 02/03/2022 [place] DATE CREATED AUTHOR AUTHOR'S ORGANIZ ATION 08/22/2022 [facility] DATE CREATED AUTHOR AUTHOR'S ORGANIZ ATION 09/10/2023 [facility] EPIC DATE CREATED AUTHOR AUTHOR'S ORGANWOODROW ATION 10/15/2023 [facility] REASON FOR VISIT (unrecogniz ed section and content) Reason Comments Memory Loss Patient Care team informatio n (unrecognized section and content) 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 [employer] [facility]. provides no warranty or guarantee of the accuracy or completeness of information in this document.
[2023-11-16 11:29] LABS: Basophils Percent Auto 0.3 % (0.2-2.0); Eosinophils Absolute Auto 0.2 10^3/uL (0.0-0.7); Eosinophils Percent Auto 2.4 % (0.9-7.0); Hematocrit 33.1 % (36.0-48.0); Hemoglobin 10.2 g/dL (12.0-16.0); Immature Granulocytes Abs Auto 0.02 10^3/uL (0.00-0.03); Immature Granulocytes Pct Auto 0.3 % (0.0-0.5); Lymphocytes Absolute Auto 2.2 10^3/uL (1.2-3.8); Lymphocytes Percent Auto 29.1 % (20.5-60.0); Mean Corpuscular HGB Conc 30.8 g/dL (29.9-35.2); Mean Corpuscular Volume 90.9 fL (81.0-99.0); Mean Platelet Volume 11.2 fL (9.5-13.5); Monocytes Absolute Auto 0.7 10^3/uL (0.3-0.8); Monocytes Percent Auto 9.7 % (1.7-12.0); Neutrophils Absolute Auto 4.4 10^3/uL (1.4-6.5); Neutrophils Percent Auto 58.2 % (43.0-75.0); Platelet Count 221 10^3/uL (150-450); Red Blood Count 3.64 10^6/uL (4.20-5.40); Red Cell Distribution Width 13.8 % (11.0-15.0); White Blood Count 7.5 10^3/uL (4.0-11.0)
[2023-11-16 11:31] LABS: Magnesium 1.8 mg/dL (1.8-2.4)
[2023-11-16 11:42] LABS: Albumin Level 3.3 g/dL (3.4-5.0); Anion Gap 13.2; BUN Creatinine Ratio 31.7; Calcium 9.2 mg/dL (8.5-10.1); Carbon Dioxide 28.8 mmol/L (21.0-32.0); Chloride 102 mmol/L (98-107); Estimated GFR (African America 38 (>=60); Estimated GFR (Non-African Ame 31 (>=60); Glucose 147 mg/dL (74-106); Phosphorus 4.3 mg/dL (2.6-4.7); Sodium 140 mmol/L (136-145); Uric Acid 6.6 mg/dL (2.6-6.0)
[2023-11-16 11:45] LABS: Percent Iron Saturation 29.7 %
[2023-11-17 11:11] LABS: PTH, Intact 59 pg/mL (15-65)
== END 2023-11-16 02:07 | disposition home or self-care (01) ==
LOC: LAB 02:06
PROVIDERS: PCP Nurse Practitioner Primary Care; Visit Provider Internal Medicine
DX: I12.9 Hypertensive chronic kidney disease with stage 1 through stage 4 chronic kidney disease, or unspecified chronic kidney disease (principal); N18.30 Chronic kidney disease, stage 3 unspecified; E11.22 Type 2 diabetes mellitus with diabetic chronic kidney disease; N25.81 Secondary hyperparathyroidism of renal origin; D63.1 Anemia in chronic kidney disease; R32 Unspecified urinary incontinence; E79.0 Hyperuricemia without signs of inflammatory arthritis and tophaceous disease
CPT/HCPCS: 36415; 80069; 82306; 82728; 83540; 83550; 83735; 83970; 84550; 85025

== ENCOUNTER 2023-11-17 08:54 | Outpatient (REF) | payer MEDICARE, MEDICAID, SELFPAY ==
--- OUTSIDE RECORDS SUMMARY | 2023-11-18 09:16 | XMS_ITS | CCD ---
Author Organization [facility] Care Team Providers Care Power Line Lineman Name Role Phone SHAMMO, DARRION Primary Care [...] Atkins MD, Eduardo Mckenna Primary Care Provider SHAMDARRION BEARDEN Primary Care Physician DG PROCTOR [...] as needed Orally every 4 hrs Active [id number] actuat albuterol 0.09 mg/actuat metered dose [...] Vitamin D Start: 05-28-2023 D3-50 1.25 MG (24819 UT) capsule ergocalciferol 1.25 mg oral capsule (4 sources) Provitamin D2 Compound take 1 capsule by mouth every week Vitamin D (Ergocalciferol ) 1.25 MG (33885 UT) 1 capsule Orally ONCE A WEEK [...] Daily, # 30 tab(s), Refills(s) 11, Pharmacy: [facility] 1155, 152.2, cm, 10/13/23 10:01:00 EDT, [...] Vitamin D3 (3 sources) Start: 07-10-2020 take 29689 [IU] by mouth every week Vitamin D3 [...] Osteoporosis 06-10-2023 Chronic Other aftercare (1 source) FDC (current) use of oral hypoglycemic drugs; Translations: [DETENTION USE ORAL HYPOGLYCEMIC DX] Onset: 3 Episodic Other aftercare (1 source) 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; Translations: [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 DRUG THERAPY] Onset: 3 Episodic Other [...] Interpretation Reference Range Facility Screenson 10-14-2023 Screens [id number] 0#1.00TIFF Normal [facility] Ambulatory Visit Summaryon 0 10-13-2023 Ambulatory Visit Summary AVILA VALENZUELA Edgardo :1950 Visit Date:10/13/2023 Ambulatory Visit Instructions Your Diagnosis Mixed incontinence urge and stress Hydronephrosis, right Bilateral renal cysts Your Care Team Attending Physician - VIVI OZUNA PA-C Primary Care Physician - DARRION [...] VIVI OZUNA PA-C Where: [facility] Long Term Recordson 10-12 Long Term Records [id number] #1.00TIFF [facility] Patient Educationon 10-13-19 Patient Education Obstetrics [...] health care provider. General instructions ? Take fmpp-gkg-lmtnjyi and prescription medicines only as told by [...] monitor yo (more content not included)... Normal [facility] Urology Office/Clinic Noteon 10-13-2023 Urology Office/Clinic Note Chief Complaint 3 month F/U HPI Staff 3m to starting Oxybutynin therapy.- Still taking with no problems DX: Mixed incontinence, BL Renal Cysts, Rt Hydronephrosis MAURA 3/20/24 *No Bentley. 1.2cm Rt Renal Parapelvic Simple Cyst. B&BSQ [...] w/ PVR & reassess sx control Ordered: 51797 Measure Post Void residual urine and/or bladder capacity by US- non-imaging Complex E&M Add on G2211 E&M of Est. Patient Moderate 30-39 Min 42477 Urnls Dip Stick Auto w/o Microscopy POC 27263 2. Incomplete bladder emptying (R33.9: Retention of [...] obstructing L renal stones. -hydro resolved. Ordered: 29615 Measure Post Void residual urine and/or bladder capacity by US- non-imaging Complex E&M Add on G2211 E&M of Est. Patient Moderate 30-39 Min 49901 Urnls Dip Stick Auto w/o Microscopy POC 91499 4. Bilateral renal cysts (N28.1: Cyst of kidney, acquired) MAURA 12/2022 - tiny, simple. MAURA 07/15/23 TBH - 1.2 cm area of anechoic echogenicity in the RUP. A simple R parapelvic cyst is favored. -Simple cysts do not require monitoring Ordered: 66021 Measure Post Void residual urine and/or bladder capacity by US- non-imaging Complex E&M Add on G2211 E&M of Est. Patient Moderate 30-39 Min 93300 Urnls Dip Stick Auto w/o Microscopy POC 48497 Orders: oxybutynin, 10 mg = 1 tab(s), Oral, Daily, # 30 tab(s), Refills(s) 11, Pharmacy: [facility]5, 152.2, cm, 10/13/23 10:01:00 EDT, Height/Length Dosing, 80.6, kg, 10/13/23 10:01:00 EDT, Weight Dosing Follow-up With When Contact Information LAITH YI, VIVI Palacios, URL [address] [address] [phone] Additional Instructions: 6 wks w/ PVR Patient [...] disorder Screenin (more content not included)... Normal [facility] Comment on above: Result Comment: Elec tronically Signed By: VIVI OZUNA PA-C\.br\Date and Time Signed: 10/13/23 10:58 EDT\.br\Electronically Co-Signed By: Janet Jimenez\.br\Date and Time Co-Signed: 10/13/23 10:42 EDT RAD - Ultrasound Reporton RAD - Ultrasound Report [id number] #1.00TIFF Normal [facility] Lab Reportson 07-03-2023 Lab Reports [id number] 5#1.00TIFF Normal [facility] Lab Reports [id number] 1#1.00TIFF Normal [facility] Physician Referralon 024 Physician Referral [id number] 4#1.00TIFF Normal [facility] RAD - CT Reporton 07-03-2023 RAD - CT Report [id number] 3#1.00TIFF Normal [facility] RAD - Ultrasound Reporton RAD - Ultrasound Report [id number] 0#1.00TIFF Normal [facility] Screenson 07-03-2023 Screens [id number] #1.00TIFF Normal [facility] Long Term Recordson 06-30 Long Term Records [id number] #1.00TIFF Normal [facility] Ambulatory Visit Summaryon 0 06-30-2023 Ambulatory [...] Hypothyroidism Lymphed (more content not included)... Normal [facility] Patient Educationon 06-30-19 Patient Education Nutrition [...] numbers. This can be done either in [place] ([place] or metric measurements. Note that charts and online BMI calculators are available to help you find your BMI quickly and easily without having to do these calculations yourself. To calculate your BMI in [place] ([place] measurements: 1. Measure your weight in [...] for Disease Control and Prevention: www.cdc.gov ? [place] Heart Association: www.heart.org ? National Heart, Lung, and Blood Beemer: www.nhlbi.nih.gov Summary ? Body mass index (BMI) is a number that is calculated from a person's weight and height. ? BMI may help estimate how much of a person's weight is composed of fat. BMI can help identify those who may be at higher risk for certain medical problems. ? BMI can be measured using [place] measurements or metric measurements. ? BMI charts are used to identify whether you are underweight, normal weight, overweight, or obese. This information is not intended to replace advice given to you by your health care provider. Make sure you discuss any questions you have with your health care provider. Document Revised: 01/04/2020 Document Reviewed: 11/11/2019 [employer] Patient Education ? 2022 Seaters. [facility] Urology Office/Clinic Noteon 06-30-2023 Urology Office/Clinic [...] lowest daily dose and slowly titrate up G7jhkxq as pt tolerates. I explained the most [...] ls of procedure prior to scheduling. Ordered: 49981 Measure Post Void residual urine and/or bladder capacity by US- non-imaging E&M of Est. Patient High 40-54 Min 84314 2. Bilateral renal cysts (N28.1: Cyst of kidney, acquired) MAURA Dec 2022 tiny, simple -no additional workup needed Ordered: E&M of Est. Patient High 40-54 Min 72599 US Renal 3. Hydronephrosis, right (N13.30: Unspecified [...] E&M of Est. Patient High 40-54 Min 70893 US Renal 4. BMI 34.0-34.9,adult (Z68.34: Body mass index [BMI] 34.0-34.9, adult) healthy diet encouraged Ordered: E&M of Est. Patient High 40-54 Min 62009 Orders: Body Mass Index (BMI) documented 3008F [...] Urnls Dip Stick Auto w/o Microscopy POC 20308 Total time spent reviewing previous notes/results/intellectual property counsel al documents, prepar (more content not included)... Normal [facility] Comment on above: Result Comment: Elec tronically Signed By: VIVI OZUNA PA-C\.chin\Date and Time Signed: 06/30/23 12:51 EST Consent for Procedure/Surger peng 06-26-2023 Consent for Procedure/Surgery [id number] #1.00TIFF [facility] Ambulatory Visit Summaryon 0 06-24-2023 Ambulatory [...] VIVI OZUNA PA-C Where: [facility] Facesheeton 06-24-2023 Facesheet [id number] 9#1.00TIFF [facility] Physician Referralon 024 Physician Referral [id number] #1.00TIFF Normal [facility] ABO/Rh History Checkon 04-18 ABO/Rh History Check Patient discharged prior Normal [facility] Comment on above: Performed By: #### 1 5568150, 1775068, 66569447, 45376622 ####[facility] [address] [place] [address] CT Head or Brain w/o Contras ton [...] Technologist: QUINCY Technical Comments Contrast: None Normal [facility] CT Spine Cervical w/o Contra ston [...] V. Transcribed by: GREG Technologist: QUINCY Normal [facility] Discharge Instructionson Discharge Instructions [id number] 8#1.00TIFF Normal [facility] ED Clinical Summaryon 2022 ED Clinical Summary [place] [id number] ED Clinical Summary Person Information Name: AVILA VALENZUELA/[facility] Age: 73 Years : 1950 Sex: Female Language: Central African PCP: SAM KILLIAN, RICHARD Yu Marital Status: [...] 04/18/2023 00:43:24 04/18/2023 00:43:24 04/18/2023 00:43:24 ADDRESS: [address] [place] [address] [place] [id number] [facility] DOC NOTES: MEDICAL INFORMATION: Prescriptions Given: [...] Follow up: With: Address: When: RICHARD VARGAS [address] [place] [address] [employer] (1) In 3 days 04/20/2023 Comments: Follow-up with your primary care provider in 3 to 5 days. If symptoms worsen, do not improve, or new symptoms arise please report back to emergency department for further evaluation. DIAGNOSIS: Closed head injury; Fall Normal [facility] ED Note-Physicianon 04-18-20 ED Note-Physician Basic Information Time Seen: Nate YI, Royal Beltran. 04/17/2023 20:31 Chief Complaint Pt [facility]. Pt states she [...] of Problems Differential Diagnosis: [] [facility] Data External documents reviewed: [] [...] RICHARD VARGAS In 3 days 04/20/2023 EST [address] [place] [address] [facility] (1) Additional Instructions: Follow-up with your primary care provider in 3 to 5 days. If symptoms worsen, do not improve, or new symptoms arise please report back to emergency department for further evaluation. Patient Education Head Injury, Adult Attestation Patient seen (more content not included)... Normal [facility] Comment on above: Result Comment: Elec [...] Ask your health care provider for a ilyy-jk-fmkr plan for gradually returning to activities. ? [...] your friends, family, a trusted colleague, and poultry farm worker about your injury, symptoms, and restrictions. Have them watch for any new or worsening problems. General instructions ? Take oynt-tyi-cmtqhse and prescription medicines only as told by your health care provider. ? Have someone stay with you for 24 hours after your head injury. This person should watch you for any changes in your symptoms and be ready to seek medical help. ? Keep all follow-up visits as told by your health care pr (more content not included)... Normal [facility] ED Patient Summaryon 023 ED Patient Summary [place] [id number] Patient Discharge Instructions Person Information Name: AVILA VALENZUELA Age: 73 Years Arrival Date: 04/17/2023 20:26:34 Discharge Diagnosis: Closed head injury; Fall Primary Care Physician: RICHARD VARGAS MD Provider Information Primary Provider: Nancy Stern DO Advanced Occupational Therapy Technician:None The exam and treatment you received in the Emergency Department were for an urgent problem and are not intended as complete care. It is important that you follow up with a doctor, nurse practitioner, or physician?s certified anesthesiologist assistant for ongoing care. If your symptoms [...] Follow-up Instructions: With: Address: When: RICHARD VARGAS [address] [place] [address] Business (1) In 3 days 04/20/2023 Comments: [...] opioids can be used to help relieve zlimzitn-ki-hdhxsb pain and are often prescribed following a [...] ? If you (more content not included)... [facility] ED Traumaon 04-18-2023 ED Trauma [id number] 6#1.00TIFF [facility] ABO/Rhon 04-17-2023 ABO/Rh Positive Invalid Interpretation Code [facility] Comment on above: Performed By: #### 1 [id number], 4385401, 16517322, 61969135 ####[facility] [address] [facility] [place] [address] ABSCon 04-17-2023 ABSC Gel Interp Negative Normal [facility] Comment on above: Performed By: #### 1 5252416, 7210599, 08530568, 24978489 ####[facility] [address] [place] [address] Auto Diffon 04-17-2023 Basophils/100 WBC (Bld) 1.2 % Normal 0.0-2.0 [facility] Comment on above: Order Comment: Order Added by Discern Expert. Performed By: #### 1 0515010, 9875473, 4109110, 4213947, 9220867, 5569015, 4791297, 03029453, 1502874 ####[facility] [address] [place] [address] Basophils/Leukocytes Auto (Bld) [Pure # fraction] 0.1 E9/L Normal 0.0-0.2 [facility] Comment on above: Order Comment: Order Added by Discern Expert. Performed By: #### 1 5629381, 4697892, 9134173, 2890214, 0931003, 6138609, 8710780, 41703700, 6335868 ####[facility] [address] [place] [address] Eosinophils/100 WBC (Bld) 1.3 % Normal 0.0-8.0 [facility] Comment on above: Order Comment: Order Added by Discern Expert. Performed By: #### 1 6997202, 4833989, 6707951, 3706088, 6740591, 2705884, 2628348, 95513553, 3900954 ####[facility] [address] [place] [address] Eosinophils/Leukocytes Auto (Bld) [Pure # fraction] 0.1 E9/L Normal 0.0-0.5 [facility] Comment on above: Order Comment: Order Added by Jason Expert. Performed By: #### 1 5169722, 5735196, 8763783, 6632220, 5056023, 0576307, 5609343, 68269538, 7868725 ####[place] [address] [place] [address] Lymphocytes/100 WBC (Bld) 23.6 % Normal 14.0-50.0 [facility] Comment on above: Order Comment: Order Added by Discern Expert. Performed By: #### 1 6558019, 1373686, 1336335, 6827397, 3610054, 9640291, 4710322, 15945619, 8797582 ####[place] [address] [place] [address] Lymphocytes/Leukocytes Auto (Bld) [Pure # fraction] 1.8 E9/L Normal 1.0-4.0 [facility] Comment on above: Order Comment: Order Added by Jason Expert. Performed By: #### 1 1538695, 3693576, 7051951, 6508093, 5079579, 4796306, 2853888, 61455123, 2070963 ####[place] [address] [place] [address] Monocytes/100 WBC (Bld) 10.1 % Normal 4.0-14.0 [facility] Comment on above: Order Comment: Order Added by Jason Expert. Performed By: #### 1 6973053, 3086740, 5241255, 3761768, 5290018, 8726821, 3298311, 77286629, 5207434 ####[place] [address] [place] [address] Monocytes/Leukocytes Auto (Bld) [Pure # fraction] 0.8 E9/L Normal 0.2-1.0 [facility] Comment on above: Order Comment: Order Added by Jason Expert. Performed By: #### 1 2822080, 3503036, 2072723, 0862985, 9707538, 2114766, 7479205, 03429298, 6955043 ####[facility] [address] [place] [address] Neutrophils/100 WBC (Bld) 63.8 % Normal 36.0-75.0 [facility] Comment on above: Order Comment: Order Added by Discern Expert. Performed By: #### 1 4252245, 8034330, 1663083, 3279120, 8293583, 1367468, 9427718, 33178171, 9775978 ####[facility] [address] [place] [address] Neutrophils/Leukocytes Auto (Bld) [Pure # fraction] 4.9 E9/L Normal 2.0-7.5 [facility] Comment on above: Order Comment: Order Added by Discern Expert. Performed By: #### 1 9600983, 6258752, 8076058, 2078897, 2384357, 7216030, 5927768, 00136963, 8585038 ####[facility] [address] [place] 0[address] BLOOD BANKOrdered By: Karina Stafford on 04-17-2023 ABO/Rh Interp Positive Invalid Interpretation Code [facility] BB Subsection ABSC Gel Interp Negative (04/17/23 8:42 PM) Normal [facility] BB Subsection BMPon 04-17-2023 Anion gap [Moles/Vol] 14 mmol/L Normal 6-16 [facility] Comment on above: Performed By: #### 1 4079771, 3512067, 8601945, 7003970, 7464413, 9302794, 6606896, 96601443, 1584637 ####[facility] [address] [place] [address] BUN/Creat Ratio 21 No Units High 10-20 [facility] Comment on above: Performed By: #### 1 1299411, 2380212, 0031838, 7826308, 9749473, 1036262, 5806276, 99251068, 6830034 ####[facility] [address] [place] [address] Calcium [Mass/Vol] 9.6 mg/dL Normal 8.9-11.1 [facility] Comment on above: Performed By: #### 1 8956008, 4504860, 5502012, 0102973, 3389025, 7226784, 1786666, 23208816, 1721568 ####[facility] [address] [place] [address] Chloride [Moles/Vol] 104 mmol/L Normal 101-111 [facility] Comment on above: Performed By: #### 1 5682653, 7588263, 7953782, 1303929, 2297949, 8922290, 1084545, 06105806, 1370387 ####[facility] [address] [place] [address] CO2 [Moles/Vol] 28 mmol/L Normal 21-31 [facility] Comment on above: Performed By: #### 1 4995422, 6958578, 9109238, 4487021, 0108452, 3235816, 5017744, 31515861, 2249001 ####[facility] [address] [place] [address] Creatinine [Mass/Vol] 1.7 mg/dL High 0.5-1.3 [facility] Comment on above: Performed By: #### 1 1548700, 2442661, 2516793, 4056323, 3029249, 2731351, 7882590, 45296904, 5405738 ####[facility] [address] [place] [address] Glucose [Mass/Vol] 135 mg/dL Normal 55-199 [facility] Comment on above: Performed By: #### 1 0283215, 7171806, 6653437, 7428303, 1285125, 2382980, 5882777, 55213380, 5290273 ####[facility] [address] [place] [address] Potassium [Moles/Vol] 3.7 mmol/L Normal 3.5-5.3 [facility] Comment on above: Performed By: #### 1 2004027, 1065131, 2894087, 0634289, 0314689, 4263856, 6916641, 51604808, 4335660 ####[facility] [address] [place] [address] Sodium [Moles/Vol] 142 mmol/L Normal 135-145 [facility] Comment on above: Performed By: #### 1 7483121, 8075252, 5202063, 0614036, 2223396, 1359025, 2885594, 56402654, 6044297 ####[facility] [address] [place] [address] Urea nitrogen [Mass/Vol] 36 mg/dL High 5-21 [facility] Comment on above: Performed By: #### 1 0825541, 3994074, 6611850, 3314321, 0229997, 1108341, 9041052, 32679515, 1789979 ####[place] [address] [place] [address] Blood Bank ID#on 04-17-2023 BBID# [id number] Invalid Interpretation Code [facility] Comment on above: Performed By: #### 1 2556521, 2422247, 67842050, 27616952 ####[place] [address] [place] [address] CBC w/ Auto Diffon 3 Erythrocyte distribution width (RBC) [Ratio] 13.8 % Normal 10.9-14.2 [facility] Comment on above: Performed By: #### 1 6990879, 9102842, 2673557, 7115257, 5278457, 7758227, 9740523, 29360855, 6029864 ####[place] [address] [place] [address] Hematocrit (Bld) [Volume fraction] 31.5 % Low 34.0-46.0 [facility] Comment on above: Performed By: #### 1 9247783, 2506178, 9697809, 2671236, 7648571, 1061681, 4002751, 13059875, 0296787 ####[address] [address] Hemoglobin (Bld) [Mass/Vol] 10.1 g/dL Low 12.0-16.0 [facility] Comment on above: Performed By: #### 1 7529806, 5085395, 8697763, 9171305, 3549209, 2902695, 1911126, 76707110, 9044587 ####[place] [address] MCH (RBC) [Entitic mass] 29.4 pg Normal 27.0-34.0 [facility] Comment on above: Performed By: #### 1 4968583, 1058796, 6340892, 4527476, 9490933, 8051130, 1592630, 83770271, 9380495 ####[address] [address] MCHC (RBC) [Mass/Vol] 32.1 g/dL Normal 31.4-36.0 [facility] Comment on above: Performed By: #### 1 7146153, 7504053, 3166594, 0018194, 8362470, 4511614, 0786401, 94152167, 4734219 ####[address] [address] MCV (RBC) [Entitic vol] 91.4 fL Normal 80.0-100.0 [facility] Comment on above: Performed By: #### 1 3377292, 2799514, 9942922, 3018852, 5510820, 3868758, 4951215, 29278892, 5345737 ####[address] [address] Platelet mean volume (Bld) [Entitic vol] 8.9 fL Normal 6.4-10.8 [facility] Comment on above: Performed By: #### 1 0960635, 6318262, 5687616, 3650838, 8496469, 5322554, 2498733, 27481238, 8654333 ####[address] [place] [address] Platelets (Bld) [#/Vol] 271.0 E9/L Normal 150.0-500.0 [facility] Comment on above: Performed By: #### 1 7379292, 5563470, 6436954, 8690982, 5301570, 0911738, 6189067, 77540857, 2070687 ####[facility] [address] [place] [address] RBC (Bld) [#/Vol] 3.4 E12/L Low 4.3-5.9 [facility] Comment on above: Performed By: #### 1 3337797, 4321567, 0908041, 8595020, 7896369, 0133054, 3383358, 47443889, 6067756 ####[facility] [address] [place] [address] WBC corrected for nucl RBC Auto (Bld) [#/Vol] 7.7 E9/L Normal 4.0-11.0 [facility] Comment on above: Performed By: #### 1 1886371, 7522193, 5016645, 4720777, 4820898, 7204729, 1910008, 10249140, 4633026 ####[facility] [address] [place] [address] CHEMISTRYOrdered By: Autumn Renteria on 04-17-2023 U [...] Sensitivity Troponin I Instructions For Use, Jessica [place], November 2017) Urea nitrogen [Mass/Vol] 36 mg/dL High 5 - 21 mg/dL Remisol Chem Urea nitrogen/Creatinine [Mass ratio] 21 mg/mg High 10 - 20 Remisol Chem COAGULATIONOrdered By: Hansa Grigsby on 04-17-2023 aPTT Coag (PPP) [Time] 32.6 s Normal 25.1 - 36.5 second(s) [facility] Auto Coag Comment on above: Interpretive Data: [...] the same coagulation reagent and instrumentation as [facility]. Currently there are no coagulation studies available worldwide for children to 14 days, and no normal ranges. Heparin therapeutic range (represented by Anti-Factor Xa activity of 0.2 - 0.4 U/mL) corresponds to PTT of 56.6 - 109.0 sec. INR Coag (PPP) [Relative time] 1.2 {INR} Invalid Interpretation Code [facility] Auto Coag Comment on above: Interpretive Data: I NR results are specifically intended to assess patients stabilized on long-term Anticoagulation therapy suggested INR s Less Intensive Anticoagulation 2.0 3.0 Conventional Range 3.0 4.5 PT Coag (PPP) [Time] 13.1 s High 9.4 - 1 2.5 second(s) [facility] Auto Coag Comment on above: Interpretive Data: [...] the same coagulation reagent and instrumentation as [facility]. Currently there are no coagulation studies available worldwide for children to 14 days, and no normal ranges. Consent for Treatmenton 03-28 Consent for Treatment [id number] #1.00TIFF Normal [facility] Ethanolon 04-17-2023 Ethanol Lvl 83 mg/dL Abnormal <=7 [facility] Comment on above: Result Comment: Crit ical Result S_ETOH:83 Called to and read back by: TAI BARBA at: 04/17/2023 21:19:24 by:CADY RENTERIA Critical Result Verified by Repeat Analysis Performed By: #### 2 [id number] ####[facility] [address] [place] [address] HEMATOLOGYOrdered By: SYSTEM SYSTEM on 04-17-2023 Basophils/100 [...] 04-17-2023 Albumin [Mass/Vol] 4.1 g/dL Normal 3.3-5.0 [facility] Comment on above: Performed By: #### 1 [id number], 8460088, 8477116, 8294227, 4645256, 1682711, 0344938, 74029369, 3455829 ####[address] [place] [address] Albumin/Globulin [Mass ratio] 1.2 {ratio} Normal 1.1-2.2 [facility] Comment on above: Performed By: #### 1 5860579, 9817190, 6926013, 2388705, 4271166, 0349312, 6191467, 69138068, 0691314 ####[address] [place] [address] Alk Phos 68 Int._Unit/L Normal 21-98 [facility] Comment on above: Performed By: #### 1 9810888, 7635394, 7641372, 5410114, 9729326, 3152448, 2835177, 58865840, 2184650 ####[address] [address] ALT 14 Int._Unit/L Normal 6-46 [facility] Comment on above: Performed By: #### 1 6284931, 3923999, 8450141, 1896138, 2246490, 7750914, 9599918, 23320054, 5847161 ####[address] [address] AST 14 Int._Unit/L Normal 5-43 [facility] Comment on above: Performed By: #### 1 9172208, 1729585, 0002616, 6022796, 0747120, 2983341, 6832852, 59795140, 6883506 ####[address] [place] [address] Bili Direct 0.2 mg/dL Normal 0.0-0.4 [facility] Comment on above: Performed By: #### 1 4545653, 4360638, 3631519, 4019288, 6949454, 6139454, 0563135, 10279722, 6552302 ####[facility] [address] [place] [address] Bili Indirect 0.6 mg/dL Normal 0.1-0.9 [facility] Comment on above: Performed By: #### 1 3277766, 5421950, 7940756, 2851194, 8998885, 9702365, 2088898, 96492030, 4179393 ####[facility] [address] [place] [address] Bili Total 0.8 mg/dL Normal 0.0-1.1 [facility] Comment on above: Performed By: #### 1 2820120, 6824312, 1266685, 0293537, 6134768, 2884197, 8562454, 60531377, 4749441 ####[facility] [address] [place] [address] Globulin (S) [Mass/Vol] 3.4 g/dL Normal 1.4-4.0 [facility] Comment on above: Performed By: #### 1 3914249, 4855868, 5102373, 0856907, 3286152, 3963965, 9907280, 24754534, 0299349 ####[facility] [address] [place] [address] Protein [Mass/Vol] 7.5 g/dL Normal 6.0-7.8 [facility] Comment on above: Performed By: #### 1 7055200, 2403309, 1716392, 6021918, 7329695, 6628608, 9664502, 14652674, 3319708 ####[facility] [address] [place] [address] Lactic Acidon 04-17-2023 Lactic Acid Lvl 2.1 mmol/L Normal 0.5-2.2 [facility] Comment on above: Performed By: #### 1 3707346, 8033892, 5691196, 1859232, 2568922, 6538555, 7323782, 14568925, 6357641 ####[facility] [address] [place] [address] Lipase Levelon 04-17-2023 Lipase Lvl 235 unit/L High 13-58 [facility] Comment on above: Performed By: #### 1 1878113, 9251812, 5560263, 4860358, 6143600, 9631098, 1736571, 42278824, 6883903 ####[facility] [address] [place] [address] Monitor Recordon 04-17-2023 Monitor Record [id number] 9#1.00TIFF Normal [facility] Monitor Record [id number] 3#1.00TIFF Normal [facility] Monitor Record [id number] 9#1.00TIFF Normal [facility] PT & PTTon 04-17-2023 aPTT Coag (PPP) [Time] 32.6 second(s) Normal 25.1-36.5 [facility] Comment on above: Result Comment: Para [...] the same coagulation reagent and instrumentation as [facility]. Currently there are no coagulation studies available worldwide for children to 14 days, and no normal ranges. Heparin therapeutic range (represented by Anti-Factor Xa activity of 0.2 - 0.4 U/mL) corresponds to PTT of 56.6 - 109.0 sec. Performed By: #### 1 4179649, 5635115, 9635611, 3971402, 1741523, 4574312, 7756901, 06062921, 1651376 ####[facility] [address] [place] [address] INR Coag (PPP) [Relative time] 1.2 {INR} Invalid Interpretation Code [facility] Comment on above: Result Comment: INR results are specifically intended to assess patients stabilized on long-term Anticoagulation therapy suggested INR?s ?Less Intensive Anticoagulation? 2.0 ? 3.0 Conventional Range 3.0 ? 4.5 Performed By: #### 1 5204154, 6354572, 8920440, 8537537, 0007895, 0480039, 5127018, 03107481, 6276305 ####[facility] [address] [place] [address] PT Coag (PPP) [Time] 13.1 second(s) High 9.4-12.5 [facility] Comment on above: Result Comment: 15 [...] the same coagulation reagent and instrumentation as [facility]. Currently there are no coagulation studies available worldwide for children to 14 days, and no normal ranges. Performed By: #### 1 7387810, 5859349, 7492822, 2316849, 6912780, 0692712, 5245265, 42827414, 1378148 ####[facility] [address] [place] [address] Pre-Arrival Noteon Pre-Arrival Note Pre-Arrival Summary Name: , [facility] Current Date: 04/17/2023 20:28:42 EST Gender: Female Date of : Age: 73 Pre-Arrival Type: EMS ETA: 04/17/2023 20:52:00 EST Primary Care Physician: Presenting Problem: Fall, Hit head Pre-Arrival User: Bernadine Littlejohn RN Referring Source: Location: [place] Completion Date/Time: 04/17/2023 20:22:00 [facility] Emergency Department Pre-Hospital Report Form Vital Signs: 107/54, 80HR, 97% RA Pre-Hospital Report: Fall, Hit head on table Treatment in Route: 2LAC Response to Treatment: Misc. Issues: Normal [facility] RAD - Preliminary Cat Scan R eporton 04-17-2023 RAD - Preliminary Cat Scan Report [id number] 6#1.00TIFF Normal [facility] Troponinon 04-17-2023 Troponin 8.90 pg/mL Low 10.10-27.10 [facility] Comment on above: Result Comment: The 95% CI (Confidence Interval) PPV (Positive Predictive Value) for myocardial infarction in females is 38 pg/mL, in males 51 pg/mL. The results should be used in conjunction with clinical conditions of myocardial infarction. (Access High Sensitivity Troponin I Instructions For Use, Jessica Jarrett, November 2017) Performed By: #### 1 [id number], 2033837, 4725735, 2920942, 3343653, 5535515, 0770782, 08314287, 9059931 ####[facility] [address] [place] [address] U Drug Screenon 04-17-2023 U Amph Scr Negative Invalid Interpretation Code [facility] Comment on above: Performed By: #### 2 223945 ####[facility] [address] [place] [address] U Cookie Scr Negative Invalid Interpretation Code [facility] Comment on above: Performed By: #### 2 659404 ####[facility] [address] [place] [address] U Benzodia Scr Negative Invalid Interpretation Code [facility] Comment on above: Performed By: #### 2 809982 ####[facility] [address] [place] [address] U Cannab Scr Negative Invalid Interpretation Code [facility] Comment on above: Performed By: #### 2 121198 ####[facility] [address] [place] [address] U Cocaine Scr Negative Invalid Interpretation Code [facility] Comment on above: Performed By: #### 2 333897 ####[facility] [address] [place] [address] U Opiate Scr Negative Invalid Interpretation Code [facility] Comment on above: Performed By: #### 2 756235 ####[facility] [address] [place] [address] U PCP Scr Negative Invalid Interpretation Code [facility] Comment on above: Performed By: #### 2 426927 ####[facility] [address] [place] [address] eGFRon 04-17-2023 eGFR 31 mL/min/1.73 m2 Low >=59 [facility] Comment on above: Order Comment: Order added by Discern Expert. Performed By: #### 1 2453926, 6224881, 1551398, 3504284, 7522280, 8908515, 9794978, 15461880, 9039018 ####[facility] [address] [place] [address] GLYCOHEMOGLOBIN A1Con 2022 [facility] RECOMMENDATION SEE BELOW Normal [facility] Comment on above: Result Comment: [facility] RECOMMENDED LIMIT 4.0 - 6.0 [facility] THERAPEUTIC TARGET < 7.0 ACTION SUGGESTED > 7.0 Performed By: #### A 1C #### [facility] [address] [address] [address] Vanessa Denis Glucose [Mass/Vol] 223 mg/dL Normal [facility] Comment on above: Performed By: #### A 1C #### [facility] [address] [place] [address] Dr. Vanessa Denis HbA1c (Bld) [Mass fraction] 9.4 % Critically high 4.5-6.2 [facility] Comment on above: Performed By: #### A 1C #### [facility] [address] [place] [address] Dr. Vanessa Denis PROF 14(COMP METB)on 023 Albumin [Mass/Vol] 3.4 g/dL Normal 3.4-5.0 [facility] Comment on above: Performed By: #### C MP #### [facility] [address] [place] [address] Dr. Vanessa Denis Albumin/Globulin [Mass ratio] 0.8 {ratio} Normal [facility] Comment on above: Performed By: #### C MP #### [facility] [address] [place] [address] Dr. Vanessa Denis ALP [Catalytic activity/Vol] 71 U/L Normal 46-116 [facility] Comment on above: Performed By: #### C MP #### [facility] [address] [place] [address] Dr. Vanessa Denis ALT [Catalytic activity/Vol] 25 U/L Normal 14-59 [facility] Comment on above: Performed By: #### C MP #### [facility] [address] [place] [address] Dr. Vanessa Denis Anion gap [Moles/Vol] 6.7 mmol/L Normal [facility] Comment on above: Performed By: #### C MP #### [facility] [address] [place] [address] Dr. Vanessa Denis AST [Catalytic activity/Vol] 19 U/L Normal 15-37 [facility] Comment on above: Performed By: #### C MP #### [facility] [address] [place] [address] Dr. Vanessa Denis Bilirubin [Mass/Vol] 0.9 mg/dL Normal 0.2-1.0 [facility] Comment on above: Performed By: #### C MP #### [facility] [address] [address] [address] Vanessa Denis Calcium [Mass/Vol] 9.5 mg/dL Normal 8.5-10.1 [facility] Comment on above: Performed By: #### C MP #### [facility] [address] [address] [address] Vanessa Denis Chloride [Moles/Vol] 102 mmol/L Normal 98-107 [facility] Comment on above: Performed By: #### C MP #### [facility] [address] [address] [address] Vanessa Denis CO2 [Moles/Vol] 35.2 mmol/L Critically high 21.0-32.0 [facility] Comment on above: Performed By: #### C MP #### [facility] [address] [address] [address] Vanessa Denis Creatinine [Mass/Vol] 1.23 mg/dL Critically high 0.55-1.02 [facility] Comment on above: Performed By: #### C MP #### [facility] [address] [address] [address] Vanessa Denis EGFR-AF SWAZI 52 mL/min/1.73m2 Critically low >=60 [facility] Comment on above: Performed By: #### C MP #### [facility] [address] [address] [address] Vanessa Denis EGFR-NON AF SWAZI 43 mL/min/1.73m2 Critically low >=60 [facility] Comment on above: Performed By: #### C MP #### [facility] [address] [address] [address] Vanessa Denis Globulin (S) [Mass/Vol] 4.1 g/dL Normal [facility] Comment on above: Performed By: #### C MP #### [facility] [address] [address] [address] Vanessa Denis Glucose [Mass/Vol] 267 mg/dL Critically high 74-106 [facility] Comment on above: Performed By: #### C MP #### [facility] [address] [address] [address] Vanessa Denis Potassium [Moles/Vol] 4.9 mmol/L Normal 3.5-5.1 [facility] Comment on above: Performed By: #### C MP #### [facility] [address] [address] [address] Vanessa Denis Protein [Mass/Vol] 7.5 g/dL Normal 6.4-8.2 [facility] Comment on above: Performed By: #### C MP #### [facility] [address] [address] [address] Vanessa Denis Sodium [Moles/Vol] 139 mmol/L Normal 136-145 [facility] Comment on above: Performed By: #### C MP #### [facility] [address] [address] [address] Vanessa Denis Urea nitrogen [Mass/Vol] 26.0 mg/dL Critically high 7.0-18.0 [facility] Comment on above: Performed By: #### C MP #### [facility] [address] [address] [address] Vanessa Denis Urea nitrogen/Creatinine [Mass ratio] 21.1 mg/mg Normal [facility] Comment on above: Performed By: #### C MP #### [facility] [address] [address] [address] Vanessa Denis CTA CHEST WO W [...] by: TWYLA CONTEH Date: 2022-05-30 14:23 Normal [facility] GLYCOHEMOGLOBIN A1Con 2022 [facility] RECOMMENDATION SEE BELOW Normal [facility] Comment on above: Result Comment: ADA RECOMMENDED LIMIT 4.0 - 6.0 [facility] THERAPEUTIC TARGET < 7.0 ACTION SUGGESTED > 7.0 Performed By: #### A 1C #### [facility] [address] [place] [address] Dr. Vanessa Denis Glucose [Mass/Vol] 203 mg/dL Normal [facility] Comment on above: Performed By: #### A 1C #### [facility] [address] [place] [address] Dr. Vanessa Denis HbA1c (Bld) [Mass fraction] 8.7 % Critically high 4.5-6.2 [facility] Comment on above: Performed By: #### A 1C #### [facility] [address] [place] [address] Dr. Vanessa Denis HEMOGRAM AND PLATELon 2022 Hematocrit (Bld) [Volume fraction] 45.4 % Normal 36.0-48.0 [facility] Comment on above: Performed By: #### H H #### [facility] [address] [place] [address] Dr. Vanessa Denis Hemoglobin (Bld) [Mass/Vol] 14.5 g/dL Normal 12.0-16.0 [facility] Comment on above: Performed By: #### H H #### [facility] [address] [address] [address] Vanessa Denis MCH (RBC) [Entitic mass] 29.0 pg Normal 26.7-34.0 [facility] Comment on above: Performed By: #### H H #### [facility] [address] [place] [address] Dr. Vanessa Denis MCHC (RBC) [Mass/Vol] 31.9 g/dL Normal 29.9-35.2 [facility] Comment on above: Performed By: #### H H #### [facility] [address] [address] [address] Vanessa Denis MCV (RBC) [Entitic vol] 90.8 fL Normal 81.0-99.0 [facility] Comment on above: Performed By: #### H H #### [facility] [address] [address] [address] Vanessa Denis PLT 164 103/ul Normal 150-450 [facility] Comment on above: Performed By: #### H H #### [facility] [address] [address] [address] Vanessa Denis RBC 5.00 106/ul Normal 4.20-5.40 [facility] Comment on above: Performed By: #### H H #### [facility] [address] [place] [address] Dr. Vanessa Denis WBC 7.6 103/ul Normal 4.0-11.0 [facility] Comment on above: Performed By: #### H H #### [facility] [address] [place] [address] Dr. Vanessa Denis LIPID PROFILEon 05-30-2022 CHOL-HDL RATIO NORM SEE BELOW Normal [facility] Comment on above: Result Comment: 3.3 - 4.4 LOW RISK 4.4 - 7.1 AVERAGE RISK 7.1 - 11.0 MODERATE RISK >11.0 HIGH RISK Performed By: #### L IPID, TSH #### [facility] [address] [place] [address] Dr. Vanessa Denis Cholesterol [Mass/Vol] 110 mg/dL Normal <=200 [facility] Comment on above: Performed By: #### L IPID, TSH #### [facility] [address] [place] [address] Dr. Vanessa Denis Cholesterol in HDL [Mass/Vol] 51 mg/dL Normal 40-60 [facility] Comment on above: Performed By: #### L IPID, TSH #### [facility] [address] [place] [address] Dr. Vnaessa Denis Cholesterol in LDL [Mass/Vol] 39.4 mg/dL Normal [facility] Comment on above: Performed By: #### L IPID, TSH #### [facility] [address] [address] [address] Vanessa Denis Cholesterol.total/Chol esterol in HDL [Mass ratio] 2.2 {ratio} Normal [facility] Comment on above: Performed By: #### L IPID, TSH #### [facility] [address] [address] [address] Vanessa Denis HDL NORMAL > or = 60 mg/dl - LOW CARDIOVASCULAR RISK <40 mg/dl - HIGH CARDIOVASCULAR RISK Normal [facility] Comment on above: Performed By: #### L IPID, TSH #### [facility] [address] [place] [address] Dr. Vanessa Denis LDL CALC NORMAL SEE BELOW Normal [facility] Comment on above: Result Comment: <100 mg/dl OPTIMAL 100 - 129 mg/dl NEAR OR ABOVE OPTIMAL 130 - 159 mg/dl BORDERLINE HIGH 160 - 189 mg/dl HIGH >190 mg/dl VERY HIGH Performed By: #### L IPID, TSH #### [facility] [address] [place] [address] Dr. Vanessa Denis Triglyceride [Mass/Vol] 98 mg/dL Normal <=150 [facility] Comment on above: Performed By: #### L IPID, TSH #### [facility] [address] [place] [address] Dr. Vanessa Denis VLDL CALC 19.6 mg/dL Normal [facility] Comment on above: Performed By: #### L IPID, TSH #### [facility] [address] [address] [address] Vanessa Denis PROF 14(COMP METB)on 023 Albumin [Mass/Vol] 3.4 g/dL Normal 3.4-5.0 [facility] Comment on above: Performed By: #### C MP #### [facility] [address] [place] [address] Dr. Vanessa Denis Albumin/Globulin [Mass ratio] 0.9 {ratio} Normal [facility] Comment on above: Performed By: #### C MP #### [facility] [address] [address] [address] Vanessa Denis ALP [Catalytic activity/Vol] 68 U/L Normal 46-116 [facility] Comment on above: Performed By: #### C MP #### [facility] [address] [address] [address] Vanessa Denis ALT [Catalytic activity/Vol] 23 U/L Normal 14-59 [facility] Comment on above: Performed By: #### C MP #### [facility] [address] [address] [address] Vanessa Denis Anion gap [Moles/Vol] 10.1 mmol/L Normal [facility] Comment on above: Performed By: #### C MP #### [facility] [address] [place] [address] Dr. Vanessa Denis AST [Catalytic activity/Vol] 21 U/L Normal 15-37 [facility] Comment on above: Performed By: #### C MP #### [facility] [address] [place] [address] Dr. Vanessa Denis Bilirubin [Mass/Vol] 0.9 mg/dL Normal 0.2-1.0 [facility] Comment on above: Performed By: #### C MP #### [facility] [address] [place] [address] Dr. Vanessa Denis Calcium [Mass/Vol] 9.2 mg/dL Normal 8.5-10.1 [facility] Comment on above: Performed By: #### C MP #### [facility] [address] [place] [address] Dr. Vanessa Denis Chloride [Moles/Vol] 101 mmol/L Normal 98-107 [facility] Comment on above: Performed By: #### C MP #### [facility] [address] [place] [address] Dr. Vanessa Denis CO2 [Moles/Vol] 31.5 mmol/L Normal 21.0-32.0 [facility] Comment on above: Performed By: #### C MP #### [facility] [address] [address] [address] Vanessa Denis Creatinine [Mass/Vol] 1.15 mg/dL Critically high 0.55-1.02 [facility] Comment on above: Performed By: #### C MP #### [facility] [address] [address] [address] Vanessa Denis EGFR-AF SWAZI 56 mL/min/1.73m2 Critically low >=60 [facility] Comment on above: Performed By: #### C MP #### [facility] [address] [address] [address] Vanessa Denis EGFR-NON AF SWAZI 46 mL/min/1.73m2 Critically low >=60 [facility] Comment on above: Performed By: #### C MP #### [facility] [address] [address] [address] Vanessa Denis Globulin (S) [Mass/Vol] 4.0 g/dL Normal [facility] Comment on above: Performed By: #### C MP #### [facility] [address] [address] [address] Vanessa Denis Glucose [Mass/Vol] 254 mg/dL Critically high 74-106 [facility] Comment on above: Performed By: #### C MP #### [facility] [address] [address] [address] Vanessa Denis Potassium [Moles/Vol] 4.6 mmol/L Normal 3.5-5.1 [facility] Comment on above: Performed By: #### C MP #### [facility] [address] [address] [address] Vanessa Denis Protein [Mass/Vol] 7.4 g/dL Normal 6.4-8.2 [facility] Comment on above: Performed By: #### C MP #### [facility] [address] [address] [address] Vanessa Denis Sodium [Moles/Vol] 138 mmol/L Normal 136-145 [facility] Comment on above: Performed By: #### C MP #### [facility] [address] [address] [address] Vanessa Denis Urea nitrogen [Mass/Vol] 24.0 mg/dL Critically high 7.0-18.0 [facility] Comment on above: Performed By: #### C MP #### [facility] [address] [address] [address] Vanessa Denis Urea nitrogen/Creatinine [Mass ratio] 20.9 mg/mg Normal [facility] Comment on above: Performed By: #### C MP #### [facility] [address] [address] [address] Vanessa Denis TSHon 05-30-2022 TSH 2.067 uIU/mL Normal 0.358-3.740 [facility] Comment on above: Performed By: #### L IPID, TSH #### [facility] [address] [address] [address] Vanessa Denis Vital Signs Date Time Vital Sign Value Performing Clinician Facility 10-13-2023 10:00-0400 Blood Pressure Location VIVI OZUNA [facility] 10-13-2023 10:00-0400 Body temperature 98.06 [degF] VIVI OZUNA [facility] 10-13-2023 10:00-0400 Diastolic blood pressure 78 mm[Hg] VIVI OZUNA [facility] 10-13-2023 10:00-0400 Heart rate 78 /min VIVI OZUNA [facility] 10-13-2023 10:00-0400 Systolic blood pressure 116 mm[Hg] VIVI OZUNA [facility] 06-24-2023 13:52-0500 Blood Pressure Location Doug FERNANDEZ [facility] [place] 06-24-2023 13:52-0500 Diastolic blood pressure 78 mm[Hg] Doug NILL [facility] [place] 06-24-2023 13:52-0500 Heart rate 68 /min Doug NILL [facility] [place] 06-24-2023 13:52-0500 Respiratory rate 16 /min Doug NILL [facility] [place] 06-24-2023 13:52-0500 Systolic blood pressure 110 mm[Hg] Doug NILL [facility] [place] 06-09-2023 11:52-0500 Body height 152.4 cm Dg Proctor MD Work Phone: [facility] 06-09-2023 11:52-0500 Body mass index (BMI) [Ratio] 32.42 kg/m2 Dg Proctor MD Work Phone: [facility] 06-09-2023 11:52-0500 Body weight 75.3 kg Dg Proctor MD Work Phone: [facility] 04-18-2023 00:39-0500 Diastolic blood pressure 95 mm[Hg] Kaylinn Dokken [facility] 04-18-2023 00:39-0500 Heart rate 74 /min Karynaylinn Dokken [facility] 04-18-2023 00:39-0500 Mean blood pressure 117 mm[Hg] Kaylinn Dokken [facility] 04-18-2023 00:39-0500 Respiratory rate 22 /min Karynaylinn Dokken [facility] 04-18-2023 00:39-0500 SaO2% (BldA) [Mass fraction] 97 % Kaylinn Dokken [facility] 04-18-2023 00:39-0500 Systolic blood pressure 161 mm[Hg] Kaylinn Dokken [facility] 04-17-2023 23:43-0500 Diastolic blood pressure 71 mm[Hg] Kaylinn Dokken [facility] 04-17-2023 23:43-0500 Heart rate 63 /min Kaylinn Dokken [facility] 04-17-2023 23:43-0500 Mean blood pressure 98 mm[Hg] Kaylinn Dokken [facility] 04-17-2023 23:43-0500 Respiratory rate 15 /min Kaylinn Dokken [facility] 04-17-2023 23:43-0500 SaO2% (BldA) [Mass fraction] 96 % Kaylinn Dokken [facility] 04-17-2023 23:43-0500 Systolic blood pressure 151 mm[Hg] Kaylinn Dokken [facility] 04-17-2023 23:23-0500 Body temperature 97.88 [degF] Kaylinn Dokken [facility] 04-17-2023 23:23-0500 Diastolic blood pressure 82 mm[Hg] Kaylinn Dokken [facility] 04-17-2023 23:23-0500 Heart rate 68 /min Kaylinn Dokken [facility] 04-17-2023 23:23-0500 Mean blood pressure 99 mm[Hg] Kaylinn Dokken [facility] 04-17-2023 23:23-0500 Respiratory rate 20 /min Kaylinn Dokken [facility] 04-17-2023 23:23-0500 SaO2% (BldA) [Mass fraction] 94 % Kaylinn Dokken [facility] 04-17-2023 23:23-0500 Systolic blood pressure 134 mm[Hg] Kaylinn Dokken [facility] 04-17-2023 22:39-0500 Respiratory rate 18 /min Kaylinn Dokken [facility] 04-17-2023 21:50-0500 Respiratory rate 18 /min Kaylinn Dokken [facility] 04-17-2023 20:50-0500 Body temperature 98.06 [degF] Kaylinn Dokken [facility] 04-17-2023 20:50-0500 Heart rate 72 /min Kaylinn Dokken [facility] 04-17-2023 20:50-0500 Respiratory rate 18 /min Kaylinn Dokken [facility] 04-17-2023 20:29-0500 Body temperature 98.06 [degF] Kaylinn Dokken [facility] 04-17-2023 20:29-0500 Heart rate 76 /min Kaylinn Dokken [facility] 02-23-2023 13:40-0400 Body height 152.4 cm Nicolás Orlando Other [facility] Other 02-23-2023 13:40-0400 Body mass index (BMI) [Ratio] 34.72 kg/m2 Nicolás Orlando Other [facility] Other 02-23-2023 13:40-0400 Body temperature 96.8 [degF] Nicolás Orlando Other [facility] Other 02-23-2023 13:40-0400 Body weight 80.65 kg Nicolás Orlando Other [facility] Other 02-23-2023 13:40-0400 Diastolic blood pressure 82 mm[Hg] Nicolás Orlando Other [facility] Other 02-23-2023 13:40-0400 Respiratory rate 20 /min Nicolás Orlando Other [facility] Other 02-23-2023 13:40-0400 SaO2% (BldA) [Mass fraction] 99 % Nicolás Orlando Other [facility] Other 02-23-2023 13:40-0400 Systolic blood pressure 132 mm[Hg] Nicolás Orlando Other [facility] Other 12-31-2022 09:00-0400 Body height 152.4 cm Nicolás Orlando Other [facility] Other 12-31-2022 09:00-0400 Body mass index (BMI) [Ratio] 32.14 kg/m2 Nicolás Orlando Other [facility] Other 12-31-2022 09:00-0400 Body temperature 96.3 [degF] Nicolás Orlando Other [facility] Other 12-31-2022 09:00-0400 Body weight 74.66 kg Nicolás Orlando Other [facility] Other 12-31-2022 09:00-0400 Diastolic blood pressure 56 mm[Hg] Nicolás Orlando Other [facility] Other 12-31-2022 09:00-0400 Respiratory rate 20 /min Nicolás Orlando Other [facility] Other 12-31-2022 09:00-0400 SaO2% (BldA) [Mass fraction] 98 % Nicolás Orlando Other [facility] Other 12-31-2022 09:00-0400 Systolic blood pressure 91 mm[Hg] Nicolás Orlando Other [facility] Other Encounters Encounter Date Encounter Type Care Provider Facility Start: 11-24-2023 ambulatory DARRION SHAMMO Facility:[facility] [place] Start: 10-13-2023 End: 10-13-2023 ambulatory DARRION SHAMMO Facility:[facility] [place] Start: 10-13-2023 End: 10-13-2023 Patient encounter procedure VIVI OZUNA [facility] Start: 09-08-2023 End: 09-08-2023 ambulatory DG PROCTOR Not Available Start: 06-30-2023 End: 06-30-2023 ambulatory DARRION SHAMMO Facility:[facility] [place] Start: 06-24-2023 End: 06-24-2023 ambulatory Doug FERNANDEZ Facility:[facility] [place] Start: 06-24-2023 End: 06-24-2023 Patient encounter procedure Doug FERNANDEZ [facility] [place] Start: 06-09-2023 Kerri Proctor MD Work Phone: [facility] Start: 06-09-2023 Bamboo flowsheet Dg Proctor MD Work Phone: [facility] Start: 06-09-2023 End: 06-09-2023 ambulatory DG PROCTOR Not Available Start: 06-09-2023 End: 06-09-2023 Office outpatient new 45 minutes Dg Proctor MD Work Phone: [facility] Comment on above: Sequelae of cerebral infarction (Primary Dx); Polyneuropathy Start: 05-25-2023 ambulatory [facility] Facility:[facility] Start: 05-21-2023 End: 05-21-2023 ambulatory Nicolás Orlando Other [facility] Other Start: 05-21-2023 Office outpatient vi sit 25 minutes Nicolás Orlando [facility] Start: 04-17-2023 End: 04-18-2023 Emergency department patient visit Nancy Stern [facility] Start: 04-08-2023 End: 04-08-2023 ambulatory Nicolás Orlando Other [facility] Other Start: 04-08-2023 Telephone encounter Nicolás Orlando [facility] Start: 02-27-2023 [facility] Facility:Edgardo [facility] Start: 02-23-2023 End: 02-23-2023 ambulatory Nicolás Orlando Other [facility] Other Start: 02-23-2023 Office outpatient vi sit 25 minutes Nicolás Orlando [facility] Start: 12-31-2022 End: 12-31-2022 ambulatory Nicolás Orlando Other [facility] Other Start: 12-31-2022 Office outpatient ne w 45 minutes Nicolás Orlando [facility] Start: 08-13-2022 End: 08-13-2022 ambulatory DARRION SHAMMO Facility:[facility] Start: 08-11-2022 End: 08-11-2022 ambulatory DARRION SHAMMO Facility:[facility] Start: 05-30-2022 End: 05-31-2022 ambulatory DARRION SHAMMO Facility:[facility] Start: 05-28-2022 End: 05-28-[address] JENIFER CASTILLO Facility:[facility] Start: 07-08-2021 End: 02-03-2022 ambulatory [place] Procedures Date Procedure Procedure Detail Performing Clinician [...] 65+ Years (3 - PPSV23 or PCV20) [facility] Start: 03-07-2024 Pneumococcal Vaccine : 65+ Years (3 of 3 - PPSV23 or PCV20) Pneumococcal Vaccine: 65+ Years (3 of 3 - PPSV23 or PCV20) [facility] Start: 09-08-2023 End: 09-08-2023 Patient encounter procedure 09/08/2023 1:45 PM EDT Office Visit [facility] [address] [place] [address] Dg Proctor MD [address] [address] [facility] Start: 1950 Medicare Annual Well ness (AWV) Medicare Annual Wellness (AWV) [facility] Start: 1950 Screening for malign ant neoplasm of colon [facility] Immunizations Immunization Date Immunization Notes Care Provider Fa cility 02-19-2023 influenza virus vaccine, unspecified formulation Doug NILL [facility] [place] 02-06-2022 SARS-CoV-2 (COVID-19 ) [id number].[id number] Doug NILL [facility] [place] 05-06-2021 SARS-CoV-2 (COVID-19 ) mRNA BNT-162b2 vax Doug NILL [facility] [place] 07-06-2020 SARS-CoV-2 (COVID-19 ) Ad26 vaccine, recombinant Doug NILL [facility] [place] Payers Date Payer Category Payer Medicaid MEDICAID [facility] [id number] 2021-Present [phone] [address] [place] [address] Medicaid [id number] 2020 Private Health Insurance [id number] 2013 Medicare MEDICARE MEDICAR E PART B [id number] 2013-Present [address] [address] [place] [address] Medicare [id number] 1959 Medicaid [id number] 1959 Medicare [id number] 1948 Unknown [id number] 93 1948 Unknown [id number] 2.16.840.1.180629.3.579.2.5 93 1948 Unknown [id number] 2.16.840.1.581542.3.579.2.5 93 1948 Unknown [id number] 2.16.840.1.260643.3.579.2.5 93 1948 Unknown [id number] 2.16.840.1.458625.3.579.2.5 93 1948 Unknown [id number] 2.16.840.1.127058.3.579.2.1 259 1948 Unknown [id number] 2.16.840.1.967783.3.579.2.1 259 1948 Unknown [id number] 2.16.840.1.450608.3.579.2.7 27 1948 Unknown [id number] 2.16.840.1.681321.3.579.2.7 27 1948 Unknown [id number] 2.16.840.1.807283.3.579.2.7 27 1948 Unknown [id number] 2.16.840.1.134199.3.579.2.7 27 1948 Unknown [id number] 2.16.840.1.612723.3.579.2.7 27 1948 Unknown [id number] 2.16.840.1.216504.3.579.2.7 27 Social History Date Type Detail Facility Unknown if ever smoked [facility] Other Sex Assigned At [facility] Start: 07-10-2020 End: 10-13-2023 Tobacco smoking status Ex-smoker (finding) [facility] Tobacco smoking status FLIS Tobacco smoking consumption unknown [facility] Start: 1950 Sex Assigned At Not on file [facility] Tobacco smoking status Never [facility] [place] Functional Status Date Assessment Result Facility 10-13-2023 Functional Status N/A [facility] 06-24-2023 Functional Status N[facility] Status N/A [facility] Clinical Notes 12-31-2022 to 10-13-2023 Dg [...] your health care provider. General instructions Take jkba-dkl-smyjzls and prescription medicines only as told by [...] provider. Document Revised: 12/31/2020 Document Reviewed: 12/31/2020 [employer] Patient Education 2022 Seaters. Follow Up Care 06/30/2023 10:55:11 With:VIVI OZUNA PA-C, URL Address: [address] [place], [place] [address] [address] [phone] When: Unknown Comments:6 wks w/ PVR [facility] 06-24-2023 Note Chief Complaint consultation for [...] mg= 1 tab(s), Oral, Daily Vitamin D3, 84558 unit(s), Oral, qWeek Zoloft 25 mg Tab, [...] virus vaccine, inactivated 02/19/2023 Recorded SARS-CoV-2 (COVID-19) [id number].[id number] 02/06/2022 Recorded SARS-CoV-2 (COVID-19) mRNA BNT-162b2 vax (more content not included)... [facility] Comment on above: Result Comment: Elec tronically Signed By: REBECCA KILLIAN, Doug Dominique\Date and Time Signed: 06/24/23 14:18 EST 06-09-2023 History of Present illness Narrative Associated Problem(s): Polyneuropathy TSH + fT4. Emphasized good A1c control. Associated Problem(s): Sequelae of cerebral infarction Echo c bubble study. ([place] or [place]). US carotids ([facility]). (Continue ASA.) Images from the original note were not included. Outpatient Progress Note Prev Appt: Visit date not found Chief Complaint Patient presents with Memory Loss Assessment and Plan - Sequelae of cerebral infarction Echo c bubble study. ([place] or [place]). US carotids ([facility]). (Continue ASA.) Polyneuropathy TSH [...] Nov, hemipar R face & hand. -> [place] [facility]. Known DM. Onset Semeiology Imaging US carotids (03/2020, [place]) - < 50% B CT head (12/2019, [place]) - neg Testing Surgery Failed Dx PN [...] mouth in the morning. D3-50 1.25 MG (36315 UT) capsule ferrous sulfate 325 (65 Fe) [...] as of 06/09/2023. documented in this encounter [facility] 05-21-2023 Evaluation note Encounter Date [...] and no personal patient information was compromised. [facility] Other 12-23-2023 Hospital Discharge instructions Patient Education [...] Ask your health care provider for a vxyi-bu-bybw plan for gradually returning to activities. 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 Have them watch for any new or worsening problems. General instructions Take fkoz-kqx-tewmzrg and prescription medicines only as told by [...] provider. Document Revised: 02/24/2020 Document Reviewed: 02/24/2020 [employer] Patient Education 2022 Seaters. Follow Up Care 04/17/2023 20:26:54 With:RICHARD VARGAS Address: [address] [facility] (1) When:04/20/2023 Comments:Follow-up with your primary care provider in 3 to 5 days. If symptoms worsen, do not improve, or new symptoms arise please report back to emergency department for further evaluation. [facility]12-22-2023 Evaluation + Plan noteExtracted from: Title:ED [...] Date:06/30/2023 10:00:00 AM Scheduled Provider:VIVI OZUNA PA-C Location:[facility] Appointment Type:URO Office Visit [facility]10-30-2023 Evaluation note* Encounter Date Diagnosis Assessment [...] recent gout flare. Continue monitor without medications. [facility] Other [id number] Evaluation note* Encounter Date Diagnosis Assessment Notes [...] We will check also for paraproteinemia work-up. [facility] Other Evaluation + Plan note Future Appointments Appointment Date:06/30/2023 10:00:00 AM Scheduled Provider:VIVI OZUNA PA-C Location:[facility] Appointment Type:URO Office Visit [facility] [place] Evaluation + Plan note Future Appointments Appointment Date:11/24/2023 11:00:00 AM Scheduled Provider:VIVI OZUAN PA-C Location:[facility] Appointment Type:URO Office Visit [facility] evaluation noteNo InformationNort Cupoint Other Evaluation note* Diagnosis Sequelae of cerebral [...] TONSILLECTOMY AND ADENOIDECTOMY Hospitalization History SEE ABOVE [facility] Other History general Narrative - Reported* Type [...] TONSILLECTOMY AND ADENOIDECTOMY Hospitalization History SEE ABOVE [facility] Other Hospital course Narrative No data available for this section [facility] No data available for this section [facility] [place] Progress note No data available for this section 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 [address] [place] [address] PCP - General Family Medicine 06/09/23 FOR [...] BE BASED ON THE PRIMARY CLINICAL RECORDS. [employer] [facility]. provides no warranty or guarantee of the accuracy or completeness of information in this document.
[2023-11-18 09:57] LABS: Creatinine Urine Random 19.39 mg/dL (20.00-300.00); Protein Creatinine Ratio Urine 0.31; Total Protein Urine Random <6.0 mg/dL (<=11.9)
[2023-11-18 11:36] LABS: Bilirubin Urine NEGATIVE (NEGATIVE); Blood Urine NEGATIVE (NEGATIVE); Clarity Urine CLEAR (CLEAR); Color Urine LT. YELLOW (YELLOW); Glucose Urine UA NEGATIVE (NEGATIVE); Ketones Urine NEGATIVE (NEGATIVE); Leukocyte Esterase Urine TRACE (NEGATIVE); Nitrite Urine NEGATIVE (NEGATIVE); Protein Urine NEGATIVE (NEG/TRACE); Urobilinogen Urine 0.2 EU/dL (0.2-1.0)
[2023-11-18 11:50] LABS: Urine Microscopic Indicated YES
[2023-11-18 13:00] LABS: Bacteria Urine TRACE #/HPF (NONE SEEN); Cast Seen? NONE SEEN #/LPF (NONE SEEN); Crystals Seen? None Seen #/HPF (None Seen); Mucus Urine NONE SEEN (NONE SEEN); RBC Urine 0-2 #/HPF (0-2); Squamous Epithelial Cell Urine RARE #/LPF (NONE/RARE)
== END 2023-11-17 08:55 | disposition home or self-care (01) ==
LOC: LAB 08:54
PROVIDERS: PCP Nurse Practitioner Primary Care; Visit Provider Internal Medicine
DX: N18.30 Chronic kidney disease, stage 3 unspecified (principal)
CPT/HCPCS: 81001; 82570; 84156

== ENCOUNTER 2024-01-01 08:37 | Outpatient (REF) | payer MEDICARE, MEDICAID, SELFPAY ==
--- OUTSIDE RECORDS SUMMARY | 2024-01-01 09:00 | XMS_ITS | CCD ---
Author Organization [facility] Inform ion Partnership [facility] Care Team Providers Care Port Surveyor Name Role Phone SHAMMO, PRO Primary Care Unavailable SHAMMO, PRO Admitting Unavailable SHAMMO, PRO Attending Unavailable YADY, DR TWYLA Mensah Consulting Unavailable SHAMMO, PRO Consulting Unavailable REINECK, DR JENIFER Carreno Attending Unavailabl e REINECK, DR JENIFER Carreno Consulting Unavailabl e REINECK, DR JENIFER Carreno Admitting Unavailabl e SHAMMO, PRO Primary Care Unavailable SHAMMO, PRO Primary Care Unavailable SHAMMO, PRO Admitting Unavailable SHAMMO, PRO Attending Unavailable SHAMMO, PRO Consulting Unavailable SHAMMO, PRO Primary Care Unavailable SHAMMO, PRO Admitting Unavailable SHAMMO, PRO Attending Unavailable SHAMMO, RPO Primary Care Unavailable SHAMMO, PRO Admitting Unavailable SHAMMO, PRO Attending Unavailable SHAMMO, PRO Consulting Unavailable OrlandoAdry calvilloul Unavailable RICHARD VARGAS Primary Care Physician Unavailable Primary Care Provider Unavailnicky Atkins MD, Eduardo Mckenna Primary Care Provider SHAMMO, PRO GEE Primary Care Physician DG PROCTOR Attending Unavailable DG PROCTOR Attending Unavailable SHAMMO, PRO Primary Care Unavailable VIVI OZUNA Attending Unavailable DO Nancy Stern Attending Unavailable Doug FERNANDEZ Attending Unavailable SHAMMO, PRO Primary Care Unavailable FRANDY ROLLINS Referring Unavailable SHAMMO, PRO Primary Care Unavailable Jo Ann Silvestre Attending Unavailable SHAMMO, PRO Primary Care Unavailable VIVI OZUNA Attending Unavailable NICOLÁS PERRY Referring Unavailable SHAMMO, PRO Primary Care Unavailable Jo Ann Silvestre Attending Unavailable SHEILA RAWLS Attending Unavailable LINUS CROWE Referring Unavailabl e LINUS CROWE Primary Care Unavailabl e Medications Current Medications Medication Drug Class(es) Dates Sig (Normalized) Sig (Original) 0.5 ML tirzepatide 10 MG/ML Auto-Injector [Mounjaro] (5 sources) Start: 06-10-2023 inject 5 mg by subcutaneous injection every week Mounjaro 5 mg/0.5 mL subcutaneous solution 5 mg, SubCutaneous, qWeek, Refills(s) 0 Start Date: 06/10/23 Status: Ordered Mounjaro 5 MG/0. 5ML as directed Subcutaneous ONCE A WEEK Active acetaminophen 325 mg oral tablet (8 sources) Start: 12-10-2023 take 325 mg by mouth every four hours Acetaminophen Active 325 MG PO Every 4 hours December 10, 2023 12:00am Start: 06-25-2023 acetaminophen 325 mg Tab 30 tab(s), 0 Refill(s), Refills(s) 0 Start Date: 06/25/23 Status: Ordered Start: 07-10-2020 acetaminophen Refills(s) 0 Start Date: 07/10/20 Status: Ordered take 1 tablet by lei th every four hours Acetaminophen 325 MG 1 tablet as needed Orally every 4 hrs Active albuterol 0.83 mg/ml inhalation solution (10 sources) beta2-Adrenergic Agonist Start: 12-10-2023 take 2.5 mg by inhalation every six hours Albuterol Sulfate Active 2.5 MG INHALATION Every 6 hours December 10, 2023 12:00am Start: 12-10-2023 take 1 puff(s) by in halation every four hours Albuterol Sulfate Active 2 PUFF INHALATION Every 4 hours December 10, 2023 12:00am Albuterol Sulfat e (2.5 MG/3ML) 0.083% 3 [...] Inhalation every 4 hrs Active Albuterol (Eqv-Proventil HFA ) 90 mcg/inh inhalation aerosol (2 sources) Start: 06-25-2023 alendronic acid 70 mg oral tablet (11 sources) Bisphosphonate Start: 12-10-2023 take 1 tablet by mouth every week Start: 07-10-2020 take 1 mg by mouth every week alendronate 70 mg oral tablet mg tab(s), Oral, qWeek, Refills(s) 0 Start Date: 07/10/20 Status: Ordered take 1 tablet by lei th once daily Alendronate Sodium 70 MG 1 tablet 30 minutes before the first food, beverage or medicine of the day with plain water Orally Active ascorbic acid 250 mg oral tablet (8 sources) Vitamin C Start: 12-10-2023 take 250 mg by mouth twice daily Ascorbic Acid (Vitamin C) Active 250 MG PO Twice daily December 10, 2023 12:00am Start: 06-25-2023 ascorbic acid 250 mg oral tablet, chewable 60 tab(s), 0 Refill(s), Refills(s) 0 Start Date: 06/25/23 Status: Ordered Start: 05-22-2023 ascorbic acid (Vitamin C) 250 MG chewable tablet aspirin 81 mg delayed release oral tablet (11 sources) Platelet Aggregation Inhibitor, Nonsteroidal Anti-inflammatory Drug Start: 12-10-2023 take 81 mg by mouth once daily Aspirin Active 81 MG PO Daily December 10, 2023 12:00am Start: 07-10-2020 take 1 tablet by lei th once daily aspirin 81 mg Oral EC Tab 81 mg = 1 tab(s), Oral, Daily, Refills(s) 0 Start Date: 07/10/20 Status: Ordered brexpiprazole 0.5 mg oral tablet (6 sources) Atypical Antipsychotic Start: 12-10-2023 take 1 tablet by mouth once daily Brexpiprazole (Rexulti) 0.5 mg tablet Active 0.5 MG PO Daily December 10, 2023 12:00am Start: 05-28-2023 take 1 tablet by lei th once daily Rexulti 0.5 mg oral tablet 0.5 mg = 1 tab(s), Oral, Daily, Refills(s) 0 Start Date: 06/10/23 Status: Ordered cholecalciferol 1.25 mg oral capsule (2 sources) Vitamin D Start: 05-28-2023 D3-50 1.25 MG (62367 UT) capsule ergocalciferol 1.25 mg oral capsule (5 sources) Provitamin D2 Compound Start: 12-10-2023 take 67974 [IU] by mouth every week Ergocalciferol (Vitamin D2) Active 44348 UNIT PO every week December 10, 2023 12:00am take 1 capsule by mouth every we ek Vitamin D (Ergocalciferol) 1.25 MG (69564 UT) 1 capsule Orally ONCE A WEEK Active ferrous sulfate 325 mg oral tablet (11 sources) Start: 12-10-2023 take 325 mg by mouth once daily Ferrous Sulfate Active 325 MG PO Daily December 10, 2023 12:00am Start: 07-10-2020 take 325 mg by mouth once fernandez y ferrous sulfate 325 mg, Oral, Daily, Refills(s) 0 Start Date: 07/10/20 Status: Ordered Start: 07-10-2020 ferrous sulfat e Oral, Refills(s) 0 Start Date: 07/10/20 Status: Ordered take 1 tablet by lei once daily Ferrous Sulfate 325 (65 Fe) MG 1 tablet Orally ONCE A DAY Active furosemide 20 mg oral tablet (11 sources) Loop Diuretic Start: 12-10-2023 take 20 mg by mouth once daily Furosemide Active 20 MG PO Daily December 10, 2023 12:00am Start: 07-10-2020 take 1 mg by mouth once daily furosemide 20 mg Tab mg tab(s), Oral, Daily, Refills(s) 0 Start Date: 07/10/20 Status: Ordered hydroCHLOROthiazide 12.5 mg / lisinopril 20 mg oral tablet (10 sources) Thiazide Diuretic, Angiotensin Converting Enzyme Inhibitor Start: 12-10-2023 take 1 tablet by mouth once daily Lisinopril-Hydrochlorothiazide Active 1 TAB PO Daily December 10, 2023 12:00am Start: 06-10-2023 take 1 tablet by lei once daily hydrochlorothiazide-lisinopril 12.5 mg-2 0 mg Tab 1 tab(s), Oral, Daily, Refill(s) [...] Active magnesium oxide 400 mg oral tablet (6 sources) Start: 12-10-2023 take 400 mg by mouth once daily Magnesium Oxide Active 400 MG PO Daily December 10, 2023 12:00am Start: 05-28-2023 take 1 tablet by lei th once daily magnesium oxide 400 mg Tab [...] pen-injector ondansetron 4 mg disintegrating oral tablet (8 sources) Serotonin-3 Receptor Antagonist Start: 12-10-2023 take 4 mg by mouth every four hours Ondansetron Active 4 MG PO Every 4 hours December 10, 2023 12:00am Start: 06-10-2023 take 1 tablet by lei th every four hours as needed for nausea [...] chloride 10 mg extended release oral tablet (2 sources) Cholinergic Muscarinic Antagonist Start: 10-13-2023 take 1 tablet by mouth once daily oxybutynin 10 mg ER Tab 10 mg = 1 tab(s), Oral, Daily, # 30 tab(s), Refills(s) 11, Pharmacy: [facility] [id number], 152.2, cm, 10/13/23 10:01:00 EDT, Height/Length Dosing, 80.6, kg, 10/13/23 10:01:00 EDT, Weight Dosing Start Date: 10/13/23 Status: Ordered pantoprazole 20 mg delayed release oral tablet (11 sources) Proton Pump Inhibitor Start: 12-10-2023 take 20 mg by mouth once daily Pantoprazole Active 20 MG PO Daily December 10, 2023 12:00am Start: 06-10-2023 take 1 tablet by lei th once daily Pantoprazole [address] Tab 20 mg = 1 tab(s), Oral, Daily, Refills(s) 0 Start Date: 06/10/23 Status: Ordered Start: 07-10-2020 take 1 mg by mouth once daily pantoprazole 40 mg Oral EC Tab mg tab(s), Oral, Daily, Refills(s) 0 Start Date: 07/10/20 Status: Ordered potassium chloride 20 meq extended release oral tablet (10 sources) Start: 12-10-2023 take 20 mEq by mouth once daily Potassium Chloride Active 20 MEQ PO Daily December 10, 2023 12:00am Start: 06-10-2023 take 1 tablet by lei th once daily potassium chloride 20 mEq ER [...] Ordered rosuvastatin calcium 5 mg oral tablet (10 sources) HMG-CoA Reductase Inhibitor Start: 12-10-2023 take 1 tablet by mouth once daily Start: 06-10-2023 take 1 tablet by lei th once daily rosuvastatin 5 mg Tab 5 mg = 1 tab(s), Oral, Daily, Refills(s) 0 Start Date: 06/10/23 Status: Ordered sertraline 25 mg oral tablet (6 sources) Serotonin Reuptake Inhibitor Start: 12-10-2023 take 25 mg by mouth once daily Sertraline Active 25 MG PO Daily December 10, 2023 12:00am Start: 06-02-2023 take 1 tablet by lei th once daily Zoloft 25 mg Tab 25 [...] Ordered Vitamin B-12 1000 mcg oral tablet (2 sources) Start: 06-25-2023 Vitamin B-12 1 000 mcg oral tablet 11 tab(s), 0 Refill(s), [...] Orally TWICE A DAY Active Vitamin D3 (4 sources) Start: 07-10-2020 take 82260 [IU] by mouth every week Vitamin D3 50,000 unit(s), Oral, qWeek, Refills(s) 0 Start Date: 07/10/20 Status: Ordered Start: 07-10-2020 Vitamin D3 Ref ills(s) 0 Start Date: 07/10/20 Status: Ordered Problems Active Problems Problem Classification Problem Date Documented Date Episodic/Chronic Acute cerebrovascular disease (4 sources) Cerebrovascular accident 07-10-2020 Chronic Anxiety disorders (3 sources) Anxiety 06-10-2023 Chronic Asthma (4 sources) Asthma 07-10-2020 Chronic Chronic kidney disease (17 sources) Chronic kidney disease stage 4; Translations: [Chronic kidney disease, stage 4 (severe)] Chronic Congestive heart failure; nonhypertensive (4 sources) Chronic combined systolic (congestive) and diastolic (congestive) heart failure; Translations: [Heart failure] Onset: 3 06-10-2023 Chronic Deficiency and other anemia (5 sources) Anemia of renal disease; Translations: [Anemia in chronic kidney disease] 12-09-2023 Chronic Deficiency and other anemia (3 sources) Anemia in chronic kidney disease Chronic Deficiency and other anemia (4 sources) Anemia 07-10-2020 Episodic Diabetes mellitus with complications (9 sources) Disorder of kidney due to diabetes mellitus; Translations: [Type 2 diabetes mellitus with diabetic chronic kidney disease] Chronic Diabetes mellitus without complication (12 sources) Type 2 diabetes mellitus without complications; Translations: [Diabetes mellitus] Onset: 3 Chronic Disorders of lipid metabolism (6 sources) Hyperlipidemia, unspecified; Translations: [Hyperlipidemia] Onset: 3 06-10-2023 Chronic Diverticulosis and diverticulitis (3 sources) Diverticular disease 06-10-2023 Chronic E Codes: Fall (1 source) Fall; Translations: [Unspecified fall, initial encounter] Onset: 3 Episodic Esophageal disorders (3 sources) Gastroesophageal reflux disease 06-10-2023 Chronic Essential hypertension (15 sources) Essential (primary) hypertension; Translations: [Hypertensive disorder] Onset: 3 Chronic Genitourinary symptoms and ill-defined conditions (9 sources) Urinary incontinence; Translations: [Unspecified urinary incontinence] Onset: 4 Chronic Genitourinary symptoms and ill-defined conditions (4 sources) Retention of urine; Translations: [Retention of urine, unspecified] Onset: 4 Episodic Headache; including migraine (3 sources) Migraine 06-10-2023 Chronic Headache; including migraine (4 sources) Headache 07-10-2020 Episodic Heart valve disorders (1 source) Nonrheumatic mitral (valve) insufficiency; Translations: [Nonrheumatic mitral (valve) insufficiency] Onset: 4 Chronic Heart valve disorders (4 sources) Heart murmur duration, short 07-10-2020 Episodic Hypertension with complications and secondary hypertension (13 sources) Hypertensive heart disease with heart failure; Translations: [Chronic kidney disease due to hypertension] Onset: 3 Chronic Late effects of cerebrovascular disease (4 sources) Sequelae of cerebral infarction; Translations: [Unspecified sequelae of cerebral infarction] Onset: 4 06-09-2023 Chronic Miscellaneous mental health disorders (4 sources) Mental disorder 07-10-2020 Chronic Mood disorders (3 sources) Depressive disorder 06-10-2023 Chronic Osteoarthritis (4 sources) Arthritis 07-10-2020 Chronic Osteoporosis (3 sources) Osteoporosis 06-10-2023 Chronic Other aftercare (1 source) 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; Translations: [[facility] USE ORAL HYPOGLYCEMIC DX] Onset: 3 Episodic Other aftercare (1 source) Other alf (current) drug therapy; Translations: [OTH [facility] CURRENT DRUG THERAPY] Onset: 3 Episodic Other circulatory disease (3 sources) Disorder of aorta 06-10-2023 Chronic Other circulatory disease (1 source) Personal history of transient ischemic attack (TIA), and cerebral infarction without residual deficits; Translations: [Personal history of transient ischemic attack (TIA), and cerebral infarction without residual deficits] Onset: 4 Episodic Other diseases of kidney and ureters (8 sources) Secondary hyperparathyroidism; Translations: [Secondary hyperparathyroidism of renal origin] 06-10-2023 Chronic Other diseases of kidney and ureters (4 sources) Secondary hyperparathyroidism of renal origin; Translations: [Secondary hyperparathyroidism (of renal origin)] Chronic Other diseases of kidney and ureters (3 sources) Anemia of renal disease 06-10-2023 Episodic Other diseases of kidney and ureters (2 sources) Acquired renal cyst without neoplastic change; Translations: [Cyst of kidney, acquired] Onset: 4 Episodic Other diseases of kidney and ureters (4 sources) Hydronephrosis; Translations: [Unspecified hydronephrosis] Onset: 4 Episodic Other diseases of kidney and ureters (2 sources) Cyst of kidney 06-30-2023 Episodic Other diseases of veins and lymphatics (3 sources) Lymphedema 06-10-2023 Chronic Other injuries and conditions due to external causes (1 source) Injury of head; Translations: [Unspecified injury of head, initial encounter] Onset: 3 Episodic Other lower respiratory disease (4 sources) Hypoxemia; Translations: [HYPOXEMIA] Onset: 3 Episodic Other nervous system disorders (4 sources) Polyneuropathy; Translations: [Polyneuropathy, unspecified] Onset: 4 06-09-2023 Chronic Other nutritional; endocrine; and metabolic disorders (3 sources) Body mass index 30+ - obesity 06-24-2023 Chronic Other nutritional; endocrine; and metabolic disorders (3 sources) Obesity 06-24-2023 Chronic Other nutritional; endocrine; and metabolic disorders (3 sources) Hyperuricemia without signs of inflammatory arthritis and tophaceous disease; Translations: [Other abnormal blood chemistry] Episodic Other nutritional; endocrine; and metabolic disorders (1 source) Hyperuricemia; Translations: [Hyperuricemia without signs of inflammatory arthritis and tophaceous disease] 12-09-2023 Episodic Other nutritional; endocrine; and metabolic disorders (1 source) Personal history of other endocrine, nutritional and metabolic disease; Translations: [Personal history of other endocrine, nutritional and metabolic disease] Onset: 4 Episodic Other screening for suspected conditions (not mental disorders or infectious disease) (3 sources) Encounter for observation for other suspected diseases and conditions ruled out; Translations: [Screening for malignant neoplasm of colon done] Onset: 3 Episodic Peripheral and visceral atherosclerosis (1 source) Peripheral vascular disease, unspecified; Translations: [Peripheral vascular disease, unspecified] Onset: 4 Chronic Residual codes; unclassified (4 sources) Edema of lower extremity 07-10-2020 Episodi c Schizophrenia and other psychotic disorders (5 sources) Schizoaffective disorder, bipolar type; Translations: [Schizoaffective disorder] Onset: 2 Chronic Thyroid disorders (8 sources) Hypothyroidism, unspecified; Translations: [Hypothyroidism] Onset: 3 07-10-2020 Chronic Transient cerebral ischemia (3 sources) Transient cerebral ischemia 06-10-2023 Chronic Unclassified (3 sources) Patient encounter status 06-24-2023 Unclassified (1 source) New Patient Onset: 4 Unclassified (1 source) Pre-op Exam Onset: 4 Past or Other Problems Problem Classification Problem Date Documented Da te Episodic/Chronic Chronic kidney disease (1 source) Chronic kidney disease Results Test Name Value Interpretation Reference Range Facility Urology Office/Clinic Noteon 11-28-2023 Urology Office/Clinic Note Urology Office/Clinic Note Chief Complaint 6wk PVR HPI Staff 6 week f/u to decreasing Oxybutynin ER from 15mg qd to 10mg. PVR is being done by the longterm and they stated they will send the results with the pt. Dx: mixed incontinence, incomplete bladder emptying and bilateral renal cysts. PVR (done @ [facility]) 11/23/13 (1357)150ml 11/24/23 (1358) 279ml Leaking has gotten worse. Usually on way to the restroom. Wears a pad & brief. 1 brief & 2-3 pads per day. Did see blood on pad in the last several days (&after wiping) Denies flank pain. Denies all other concerns at this time. History of Present Illness I have reviewed and verified the staff HPI to be accurate for this encounter. Portions of this record may have been created with voice recognition artificial intelligence software, specifically Triplify, mPATH and or Getfugu. Substitutions may have occurred due to the inherent limitations of voice recognition and artificial intelligence software. Review of Systems PHQ Score Initial Depression Screen Score: 0 SCORE Physical Exam Vitals & Measurements HR: 69(Peripheral) RR: 16 BP: 133/71 HT: 60 in HT: 152 cm WT: 77.5 kg WT: 170.5 lb BMI: 33.54 General: Well developed, well nourished, in no acute distress. Genitourinary: Flank Pain: none. Bladder: nonpalpable. Assessment/Plan 1. Mixed incontinence urge and stress (N39.46: Mixed incontinence) UUI > ANEL BBS 16 (10) Patient was previously started on oxybutynin ER and titrated up to 15 mg daily. At follow-up office visit, her PVR was 229 mL (13 mL previously). Due to incomplete emptying, she was advised to decrease dosing to 10 mg daily. Patient states that she continues to tolerate this dosing well, but does notice worsening of her incontinence open the previous dose. senior living did complete PVR yesterday prior to patient's appointment. They recorded 2 separate PVRs of 279 and 150 mL. I thoroughly discussed with patient that I am on the fence of letting her continue medication as 1 of those PVRs is not ideal. Advised patient that we are unable to obtain PVR in office today. However, we did discuss straight cath to get most accurate PVR. Patient agrees. Straight cath for PVR in office today 215. Again, discussed with patient that this is still higher than I would like when compared to her PVR prior to starting medication. She inquires about other medication. I advised that she is likely to have the same issue of increased PVR with other anticholinergic medications. We did, however, discussed beta-3 agonist which works a little bit differently from the anticholinergics with lesser occurrence of urinary retention. Patient is agreeable to try. Start Myrbetriq 25 mg daily. We discussed side effects. Patient would like her blood pressure checked more routinely at the longterm to ensure that she is not getting hypertension as a result of medication. Order sent with patient. -Start Myrbetriq -Follow-up 8 weeks with PVR Ordered: [id number] Insert/non-indwellin g bladder cath E&M of Est. Patient Moderate 30-39 Min 59861 2. Vaginal yeast infection (B37.31: Acute candidiasis of vulva and vagina) Patient does note that she has seen a small amount of blood with wiping over the last few days. During straight cath, patient does have mild white discharge, beefy red appearance to labia majora with some satellite lesions noted. There is a small raw area on the labia majora which does appear to have scant amount of blood. Discussed suspicion for vaginal yeast infection with patient. She does states she has very mild irritation, has been using a barrier cream to the area that is sore. Diflucan x 2 doses 72 hours apart for treatment. Advised patient to use barrier cream. Discussed side effects. -Start Diflucan Ordered: [id number] Insert/non-indwellin g bladder cath E&M of Est. Patient Moderate 30-39 Min 55895 3. Incomplete bladder emptying (R33.9: Retention of urine, unspecified) see #1 Ordered: [id number] Insert/non-indwellin g bladder cath E&M of Est. Patient Moderate 30-39 Min 61127 4. Hydronephrosis, right (N13.30: Unspecified hydronephrosis) CT AP wo con 03/31/23 - Mild Rt hydronephrosis. Suggestion of R ureteral urothelial thickening. Diffuse bladder wall thickening. May represent recently passed ureteral stone vs cystitis. No renal stones. MAURA 07/15/23 [facility] - No R hydro. No solid L cortical mass, hydro, or obstructing L renal stones. -hydro resolved. [1] Ordered: [id number] Insert/non-indwellin g bladder cath E&M of Est. Patient Moderate 30-39 Min 48935 5. Bilateral renal cysts (N28.1: Cyst of kidney, acquired) MAURA 12/2022 - tiny, simple. MAURA 07/15/23 [facility] - 1.2 cm area of anechoic echogenicity in the RUP. A simple R parapelvic cyst is favored. -Simple cysts do not require monitoring [2] Ordered: [id number] Insert/non-indwellin g bladder cath E&M of Est. Patient Moderate 30-39 Min 37062 Follow-up No qualifying (more content not included)... Normal [facility] Comment on above: Result Comment: Elec tronically Signed By: AALIYAH Silvestre APRN, [place] [facility]\.br\Date and Time Signed: 11/28/23 11:45 EDT Ambulatory Visit Summaryon 0 11-24-2023 Ambulatory Visit Summary Ambulatory Visit Summary AVILA VALENZUELA :1950 Visit Date:11/24/2023 Ambulatory Visit Instructions Your Diagnosis Mixed incontinence urge and stress Incomplete bladder emptying Hydronephrosis, right Bilateral renal cysts Your Care Team Attending Physician - AALIYAH Silvestre APRN, [place] [facility] Primary Care Physician - PRO JEAN CNP This Is Your Medications List Contact prescribing [...] Tab) ondansetron (ondansetron 4 mg Dis Tab) oxybutynin (oxybutynin 10 mg ER Tab) pantoprazole (Pantoprazole [address] Tab) [...] and adenoidectomy. Discharge Vitals Heart Rate (Peripheral) 69 Respiratory Rate 16 Blood Pressure 133/71 Height 152 cm Height 60 in Weight 77.5 kg Weight 170.5 lb BMI 33.54 What to do next Scheduled Follow-Up Appointments Thursday 11:00 AM EDT With: AALIYAH Silvestre APRN, [place] [facility] Where: [facility] [address] [address]- Medications What How Much When Instructions Unchanged [...] prescribing physician if questions or concerns Unchanged oxybutynin (oxybutynin 10 mg ER Tab) 1 Tablets By Mouth Every [...] - Any problem that you are currently receivin (more content not included)... Normal [facility] Laboratory - Chemistry and C hemistry - challengeon 11-17-2023 Bilirubin Ql (U) Negative NEGATIVE [facility] Glucose (U) [Mass/Vol] Negative NEGATIVE [facility] Ketones Ql (U) Negative NEGATIVE [facility] pH (U) 6.0 [pH] 5.0-9.0 [facility] Specific gravity (U) [Rel density] 1.010 1.005-1.025 [facility] Urobilinogen Qn (U) 0.2 {Roberta'U}/dL 0.2-1.0 [facility] Laboratory - Specimen inform ationon 11-17-2023 Appearance (U) CLEAR CLEAR [facility] Color (U) LT. YELLOW YELLOW [facility] Laboratory - Urinalysison Leukocyte esterase Test strip Ql (U) TRACE Abnormal NEGATIVE [facility] Mucus Ql (Urine sed) NONE SEEN NONE SEEN [facility] Nitrite Ql (U) Negative NEGATIVE [facility] Protein Ql (U) Negative NEG/TRACE [facility] No Panel Informationon 11-16 Urine Bacteria TRACE #/HPF Abnormal NONE SEEN [facility] Urine Microscopic Review YES [facility] Urine Occult Blood Negative NEGATIVE [facility] Urine Other Casts NONE SEEN #/LPF NONE SEEN [facility] Urine Other Crystals None Seen #/HPF None Seen [facility] Urine Random Creatinine 19.39 mg/dL Low 20.00-300.00 [facility] Urine Random Total Protein <6.0 mg/dL <=11.9 [facility] [place] [facility] RBC 0-2 #/HPF 0-2 [facility] [place] Urine Squamous Epithelial Cells RARE #/LPF NONE/RARE [facility] [place] Urine WBC 2-5 #/HPF Abnormal NONE SEEN [facility] [place] Urine protein/creatinine rat ioon 11-17-2023 Protein/Creatinine (U) [Ratio] 0.31 [facility] Basophils Auto (Bld) [#/Vol] on 11-16-2023 Basophils (Bld) [#/Vol] 0.0 10 3/uL 0.0-0.1 [facility] Basophils/100 WBC Auto (Bld) on 11-16-2023 Basophils/100 WBC (Bld) 0.3 % 0.2-2.0 [facility] Eosinophils/100 WBC Auto (Bl d)on 11-16-2023 Eosinophils/100 WBC (Bld) 2.4 % 0.9-7.0 [facility] Erythrocyte distribution wid th Auto (RBC) [Ratio]on 11-16-2023 Erythrocyte distribution width (RBC) [Ratio] 13.8 % 11.0-15.0 [facility] Estimated glomerular filtrat ion rate (GFR) non- Americanon 11-16-2023 GFR/1.73 sq M.predicted among non-blacks MDRD (S/P/Bld) [Vol rate/Area] 31 mL/min/{1.73_m2} Low >=60 [facility] Hematocrit Auto (Bld) [Volum e fraction]on 11-16-2023 Hematocrit (Bld) [Volume fraction] 33.1 % Low 36.0-48.0 [facility] Hemoglobin [Mass/volume] in Bloodon 11-16-2023 Hemoglobin (Bld) [Mass/Vol] 10.2 g/dL Low 12.0-16.0 [facility] Iron binding capacity [Mass/ volume] in Serum or Plasmaon 11-16-2023 Iron binding capacity [Mass/Vol] 202.0 ug/dL Low 250.0-450.0 [facility] Iron saturation [Mass Fracti on] in Serum or Plasmaon 11-16-2023 Iron saturation [Mass fraction] 29.7 % [facility] Laboratory - Chemistry and C hemistry - challengeon 11-16-2023 Albumin [Mass/Vol] 3.3 g/dL Low 3.4-5.0 [facility] Calcium [Mass/Vol] 9.2 mg/dL 8.5-10.1 [facility] Chloride [Moles/Vol] 102 mmol/L 98-107 [facility] CO2 [Moles/Vol] 28.8 mmol/L 21.0-32.0 [facility] Creatinine [Mass/Vol] 1.61 mg/dL High 0.55-1.02 [facility] Ferritin [Mass/Vol] 278.0 ng/mL High 8.0-252.0 [facility] GFR/1.73 sq M.predicted MDRD (S/P/Bld) [Vol rate/Area] 38 mL/min/{1.73_m2} Low >=60 [facility] Glucose [Mass/Vol] 147 mg/dL High 74-106 [facility] Iron [Mass/Vol] 60.0 ug/dL 50.0-170.0 [facility] Magnesium [Mass/Vol] 1.8 mg/dL 1.8-2.4 [facility] Potassium [Moles/Vol] 4.0 mmol/L 3.5-5.1 [facility] Sodium [Moles/Vol] 140 mmol/L 136-145 [facility] Urate [Mass/Vol] 6.6 mg/dL High 2.6-6.0 [facility] Urea nitrogen [Mass/Vol] 51.0 mg/dL High 7.0-18.0 [facility] Urea nitrogen/Creatinine [Mass ratio] 31.7 mg/mg [facility] [place] Laboratory - Hematology and Cell countson 11-16-2023 Immature granulocytes/100 WBC (Bld) 0.3 % 0.0-0.5 [facility] Leukocytes [#/volume] correc bogdan for nucleated erythrocytes in Blood by Automated counon 11-16-2023 WBC corrected for nucl RBC Auto (Bld) [#/Vol] 7.5 10 3/uL 4.0-11.0 [facility] Lymphocytes Auto (Bld) [#/Vo l]on 11-16-2023 Lymphocytes (Bld) [#/Vol] 2.2 10 3/uL 1.2-3.8 [facility] Lymphocytes/100 WBC Auto (Bl d)on 11-16-2023 Lymphocytes/100 WBC (Bld) 29.1 % 20.5-60.0 [facility] MCH Auto (RBC) [Entitic mass ]on 11-16-2023 MCH (RBC) [Entitic mass] 28.0 pg 26.7-34.0 [facility] MCHC Auto (RBC) [Mass/Vol]on 11-16-2023 MCHC (RBC) [Mass/Vol] 30.8 g/dL 29.9-35.2 [facility] MCV Auto (RBC) [Entitic vol] on 11-16-2023 MCV (RBC) [Entitic vol] 90.9 fL 81.0-99.0 [facility] Monocytes Auto (Bld) [#/Vol] on 11-16-2023 Monocytes (Bld) [#/Vol] 0.7 10 3/uL 0.3-0.8 [facility] Monocytes/100 WBC Auto (Bld) on 11-16-2023 Monocytes/100 WBC (Bld) 9.7 % 1.7-12.0 [facility] Neutrophils Auto (Bld) [#/Vo l]on 11-16-2023 Neutrophils (Bld) [#/Vol] 4.4 10 3/uL 1.4-6.5 [facility] Neutrophils/100 WBC Auto (Bl d)on 11-16-2023 Neutrophils/100 WBC (Bld) 58.2 % 43.0-75.0 [facility] No Panel Informationon 11-15 25-Hydroxy Vitamin D Total 90.5 ng/mL [facility] Comment on above: <20 ng/mL Vit D defi cient20-<30 ng/mL Vit D gxnrdbhuuzuh79-331 ng/mL Vit D sufficient>100 ng/mL Potential Toxicity Eosinophils # (Auto) 0.2 10 3/uL 0.0-0.7 [facility] Immature Granulocyte # (Auto) 0.02 10 3/uL 0.00-0.03 [facility] Parathyroid Hormone (Intact) 59 pg/mL 15-65 [facility] Comment on above: Performed at: [address] [id number] Director: Alex العلي PhD, Phone: [phone] Phosphorus Level 4.3 mg/dL 2.6-4.7 [facility] Platelet mean volume Auto (B ld) [Entitic vol]on 11-16-2023 Platelet mean volume (Bld) [Entitic vol] 11.2 fL 9.5-13.5 [facility] Platelets Auto (Bld) [#/Vol] on 11-16-2023 Platelets (Bld) [#/Vol] 221 10 3/uL 150-450 [facility] RBC Auto (Bld) [#/Vol]on RBC (Bld) [#/Vol] 3.64 10 6/uL Low 4.20-5.40 [facility] Serum or plasma anion gap de terminationon 11-16-2023 Anion gap [Moles/Vol] 13.2 mmol/L [facility] Screenson 10-14-2023 Screens [id number] 0#1.00TIFF Normal Elena [facility] Ambulatory Visit Summaryon 0 10-13-2023 Ambulatory Visit Summary AVILA VALENZUELA :1950 Visit Date:10/13/2023 Ambulatory Visit Instructions Your Diagnosis Mixed incontinence urge and stress Hydronephrosis, right Bilateral renal cysts Your Care Team Attending Physician - VIVI OZUNA PA-C Primary Care Physician - PRO JEAN CNP This Is Your Medications List oxybutynin [...] VIVI OZUNA PA-C Where: [facility] Skilled Nursing Recordson 10-12 Skilled Nursing Records [id number] #1.00TIFF [facility] Patient Educationon 10-13-19 Patient Education Obstetrics and [...] health care provider. General instructions ? Take nlmy-wah-qrpoljm and prescription medicines only as told by [...] monitor yo (more content not included)... Normal [facility] Urology Office/Clinic Noteon 10-13-2023 Urology Office/Clinic Note Chief Complaint 3 month F/U HPI Staff 3m to starting Oxybutynin therapy.- Still taking with no problems DX: Mixed incontinence, BL Renal Cysts, Rt Hydronephrosis MAURA 07/15/23 *No Jean. 1.2cm Rt Renal Parapelvic Simple Cyst. B&BSQ [...] w/ PVR & reassess sx control Ordered: 14698 Measure Post Void residual urine and/or bladder capacity by US- non-imaging Complex E&M Add on G2211 E&M of Est. Patient Moderate 30-39 Min 05428 Urnls Dip Stick Auto w/o Microscopy POC 22875 2. Incomplete bladder emptying (R33.9: Retention of [...] obstructing L renal stones. -hydro resolved. Ordered: 95903 Measure Post Void residual urine and/or bladder capacity by US- non-imaging Complex E&M Add on G2211 E&M of Est. Patient Moderate 30-39 Min 67969 Urnls Dip Stick Auto w/o Microscopy POC 29395 4. Bilateral renal cysts (N28.1: Cyst of kidney, acquired) MAURA 12/2022 - tiny, simple. MAURA 07/15/23 TBH - 1.2 cm area of anechoic echogenicity in the RUP. A simple R parapelvic cyst is favored. -Simple cysts do not require monitoring Ordered: 70457 Measure Post Void residual urine and/or bladder capacity by US- non-imaging Complex E&M Add on G2211 E&M of Est. Patient Moderate 30-39 Min 03253 Urnls Dip Stick Auto w/o Microscopy POC 54720 Orders: oxybutynin, 10 mg = 1 tab(s), Oral, Daily, # 30 tab(s), Refills(s) 11, Pharmacy: [facility], 152.2, cm, 10/13/23 10:01:00 EDT, Height/Length Dosing, 80.6, kg, 10/13/23 10:01:00 EDT, Weight Dosing Follow-up With When Contact Information LAITH YI, VIVI Palacios, URL [address] [facility] [place] [address] [phone] Additional Instructions: 6 wks w/ PVR Patient Education Overactive Bladder, Adult Documentation recorded by the isaias Jimenez accurately reflects the services(s) I performed [...] disorder Screenin (more content not included)... Normal [facility] Comment on above: Result Comment: Elec tronically Signed By: VIVI OZUNA PA-C\.br\Date and Time Signed: 10/13/23 10:58 EDT\.br\Electronically Co-Signed By: Janet Jimenez\.br\Date and Time Co-Signed: 10/13/23 10:42 EDT RAD - Ultrasound Reporton RAD - Ultrasound Report [id number] #1.00TIFF [facility] Lab Reportson 07-03-2023 Lab Reports [id number] 5#1.00TIFF Normal [facility] Lab Reports [id number] 1#1.00TIFF [facility] Physician Referralon 024 Physician Referral [id number] 4#1.00TIFF [facility] RAD - CT Reporton 07-03-2023 RAD - CT Report [id number] 3#1.00TIFF [facility] RAD - Ultrasound Reporton RAD - Ultrasound Report [id number] 0#1.00TIFF Normal [facility] Screenson 07-03-2023 Screens [id number] #1.00TIFF [facility] Skilled Nursing Recordson 06-30 Skilled Nursing Records [id number] #1.00TIFF Normal Elena [facility] Ambulatory Visit Summaryon 0 06-30-2023 Ambulatory Visit Summary AVILA VALENZUELA :1950 Visit Date:06/30/2023 Ambulatory Visit Instructions Your Diagnosis Mixed incontinence urge and stress Bilateral renal cysts Hydronephrosis, right BMI 34.0-34.9,adult Your Care Team Attending Physician - LAITH YI, VIVI Palacios Primary Care Physician - PRO JEAN CNP Referring Physician - ORLANDO KILLIAN, NICOLÁS [...] Hypothyroidism Lymphed (more content not included)... Normal Elena [facility] Patient Educationon 06-30-19 Patient Education Nutrition [...] for Disease Control and Prevention: www.cdc.gov ? [place] Heart Association: www.heart.org ? National Heart, Lung, and Blood Dixon: www.nhlbi.nih.gov Summary ? Body mass index (BMI) [...] provider. Document Revised: 01/04/2020 Document Reviewed: 11/11/2019 [employer] Patient Education ? 2022 [employer]. Pedro Pablo Elena [facility] Urology Office/Clinic Noteon [...] lowest daily dose and slowly titrate up Z4kfurm as pt tolerates. I explained the most [...] ls of procedure prior to scheduling. Ordered: 60514 Measure Post Void residual urine and/or bladder capacity by US- non-imaging E&M of Est. Patient High 40-54 Min 24530 2. Bilateral renal cysts (N28.1: Cyst of kidney, acquired) MAURA Dec 2022 tiny, simple -no additional workup needed Ordered: E&M of Est. Patient High 40-54 Min 32801 US Renal 3. Hydronephrosis, right (N13.30: Unspecified [...] E&M of Est. Patient High 40-54 Min 08792 US Renal 4. BMI 34.0-34.9,adult (Z68.34: Body mass index [BMI] 34.0-34.9, adult) healthy diet encouraged Ordered: E&M of Est. 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 Normal [facility] Comment on above: Result Comment: Elec tronically Signed By: VIVI OZUNA PA-C\.br\Date and Time Signed: 06/30/23 12:51 EST Consent for Procedure/Surger yon 06-26-2023 Consent for Procedure/Surgery [id number] #1.00TIFF Normal [facility] Ambulatory Visit Summaryon 0 06-24-2023 Ambulatory Visit Summary AVILA VALENZUELA :1950 Visit Date:06/24/2023 Ambulatory Visit Instructions Your Care Team Attending Physician - REBECCA KILLIAN, Doug Calvillo Primary Care Physician - PATTI CAREY, PRO FLYNN Referring Physician - FRANDY ROLLINS MD [...] VIVI OZUNA PA-C Where: [facility] Facesheeton 06-24-2023 Facesheet [id number] 9#1.00TIFF [facility] Physician Referralon 024 Physician Referral [id number] #1.00TIFF [facility] ABO/Rh History Checkon 04-18 ABO/Rh History Check Patient discharged prior [facility] Comment on above: Performed By: #### 1 [id number], 2410000, 09110348, 29181600 ####[facility] [address] [place] [address] CT Head or Brain w/o Contras ton [...] Technologist: QUINCY Technical Comments Contrast: None Normal [facility] CT Spine Cervical w/o Contra [...] V. Transcribed by: GREG Technologist: QUINCY Normal [facility] Discharge Instructionson Discharge Instructions [id number] 8#1.00TIFF Normal [facility] ED Clinical Summaryon 2022 ED Clinical Summary [place] [address] ED Clinical Summary Person Information Name: AVILA VALENZUELA/[facility] Age: 73 Years : 1950 Sex: [...] 04/18/2023 00:43:24 04/18/2023 00:43:24 04/18/2023 00:43:24 ADDRESS: [address] [place] [address] [place] [phone] [facility] DOC NOTES: MEDICAL INFORMATION: Prescriptions Given: Medications [...] Follow up: With: Address: When: RICHARD VARGAS [id number] [place] [address] Business (1) In 3 days 04/20/2023 Comments: Follow-up with your primary care provider in 3 to 5 days. If symptoms worsen, do not improve, or new symptoms arise please report back to emergency department for further evaluation. DIAGNOSIS: Closed head injury; Fall Normal [facility] ED Note-Physicianon 04-18-20 ED Note-Physician Basic Information Time Seen: Nate YI, Royal Mcclendon 04/17/2023 20:31 Chief Complaint Pt arrrives [facility] for a fall. Pt states she hit [...] and Complexity of Problems Differential Diagnosis: [] [facility] Data External documents reviewed: [] My [...] medications Follow-up With When Contact Information RICHARD OVALLEARI In 3 days 04/20/2023 EST [address] [place] [address]- Business (1) Additional Instructions: Follow-up with your primary care provider in 3 to 5 days. If symptoms worsen, do not improve, or new symptoms arise please report back to emergency department for further evaluation. Patient Education Head Injury, Adult Attestation Patient seen (more content not included)... Normal [facility] Comment on above: Result Comment: [...] Ask your health care provider for a ighy-kt-xfeg plan for gradually returning to activities. ? [...] your friends, family, a trusted colleague, and boom stick worker about your injury, symptoms, and restrictions. Have them watch for any new or worsening problems. General instructions ? Take frjy-fvi-qigigik and prescription medicines only as told by your health care provider. ? Have someone stay with you for 24 hours after your head injury. This person should watch you for any changes in your symptoms and be ready to seek medical help. ? Keep all follow-up visits as told by your health care pr (more content not included)... 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 It is important that you follow up with a doctor, nurse practitioner, or physician?s cardiology physician assistant for ongoing care. If your symptoms [...] Follow-up Instructions: With: Address: When: RICHARD VARGAS [address] [place] [address] [employer] [place] (1) In 3 days 04/20/2023 Comments: Follow-up [...] opioids can be used to help relieve dalwztjx-kj-fmzdsx pain and are often prescribed following a [...] If you (more content not included)... Normal [facility] ED Traumaon 04-18-2023 ED Trauma [id number] 6#1.00TIFF Normal [facility] ABO/Rhon 04-17-2023 ABO/Rh Positive Invalid Interpretation Code [facility] Comment on above: Performed By: #### 1 [id number], 0556073, [id number], [id number] ####[facility] [address] [place] [address] ABSCon 04-17-2023 ABSC Gel Interp Negative Normal [facility] Comment on above: Performed By: #### 1 [id number], 0851885, 77271057, 34329373 ####[facility] [address] [place] [address] Auto Diffon 04-17-2023 Basophils/100 WBC (Bld) 1.2 % Normal 0.0-2.0 [facility] Comment on above: Order Comment: Order Added by Discern Expert. Performed By: #### 1 2592716, 2653924, 0362788, 8426342, 9770646, 6855052, 7626448, 91617987, 1250148 #### [facility] Laboratory [address] [place] [address] Basophils/Leukocytes Auto (Bld) [Pure # fraction] 0.1 E9/L Normal 0.0-0.2 [facility] Comment on above: Order Comment: Order Added by Discern Expert. Performed By: #### 1 3100044, 0263676, 6188142, 4166373, 0870655, 6081906, 0281761, 35755638, 6238352 #### [facility] Laboratory [address] [place] [address] Eosinophils/100 WBC (Bld) 1.3 % Normal 0.0-8.0 [facility] Comment on above: Order Comment: Order Added by Discern Expert. Performed By: #### 1 5970891, 0051920, 4720204, 6494143, 1379992, 8474467, 9558970, 33172541, 2061968 #### [facility] [address] [place] [address] Eosinophils/Leukocytes Auto (Bld) [Pure # fraction] 0.1 E9/L Normal 0.0-0.5 [facility] Comment on above: Order Comment: Order Added by Discern Expert. Performed By: #### 1 2746265, 1678235, 3006821, 6713514, 8018844, 7463853, 7554838, 69015616, 7722063 #### [facility] [address] [place] [address] Lymphocytes/100 WBC (Bld) 23.6 % Normal 14.0-50.0 [facility] Comment on above: Order Comment: Order Added by Discern Expert. Performed By: #### 1 0531285, 4660546, 7734202, 6409135, 8068880, 3522138, 0816143, 84812957, 4871253 #### [facility] [address] [place] [address] Lymphocytes/Leukocytes Auto (Bld) [Pure # fraction] 1.8 E9/L Normal 1.0-4.0 [facility] Comment on above: Order Comment: Order Added by Discern Expert. Performed By: #### 1 6635373, 9273338, 4797789, 8525153, 4430006, 1461847, 7680936, 66120998, 9735589 #### [facility] Laboratory [address] [place] [address] Monocytes/100 WBC (Bld) 10.1 % Normal 4.0-14.0 [facility] Comment on above: Order Comment: Order Added by Discern Expert. Performed By: #### 1 5216165, 5556352, 7036816, 4598426, 7767349, 9839846, 6544244, 80679400, 3442065 #### [facility] [address] [place] [address] Monocytes/Leukocytes Auto (Bld) [Pure # fraction] 0.8 E9/L Normal 0.2-1.0 [facility] Comment on above: Order Comment: Order Added by Discern Expert. Performed By: #### 1 0965273, 5251617, 6860387, 9736646, 1416569, 7284538, 1847715, 99190183, 3901362 #### [facility] [address] [place] [address] Neutrophils/100 WBC (Bld) 63.8 % Normal 36.0-75.0 [facility] Comment on above: Order Comment: Order Added by Discern Expert. Performed By: #### 1 0831979, 1012839, 2008040, 3728004, 7197361, 6737791, 5982203, 41486050, 2898143 #### [facility] [address] [place] [address] Neutrophils/Leukocytes Auto (Bld) [Pure # fraction] 4.9 E9/L Normal 2.0-7.5 [facility] Comment on above: Order Comment: Order Added by Discern Expert. Performed By: #### 1 9906908, 1003136, 1031946, 3965612, 7240969, 5458022, 8070382, 65931975, 2456197 #### [facility] Laboratory [address] [place] [address] BLOOD BANKOrdered By: Karina Stafford on 04-17-2023 ABO/Rh Interp Positive Invalid Interpretation Code [facility] BB Subsection ABSC Gel Interp Negative (04/17/23 8:42 PM) Normal [facility] BB Subsection BMPon 04-17-2023 Anion gap [Moles/Vol] 14 mmol/L Normal 6-16 [facility] Comment on above: Performed By: #### 1 2749068, 3492522, 8650050, 6252339, 1892373, 5472229, 1221200, 44131878, 6615187 ####[facility] [address] [place] [address] BUN/Creat Ratio 21 No Units High 10-20 [facility] Comment on above: Performed By: #### 1 2840173, 0558395, 6666034, 5852973, 3423627, 0927037, 7516760, 48331941, 0987022 ####[facility] [address] [place] [address] Calcium [Mass/Vol] 9.6 mg/dL Normal 8.9-11.1 [facility] Comment on above: Performed By: #### 1 1413805, 1919056, 0799596, 4026063, 1503264, 0797582, 8371164, 97187205, 3156749 ####[facility] [address] [place] [address] Chloride [Moles/Vol] 104 mmol/L Normal 101-111 [facility] Comment on above: Performed By: #### 1 0013305, 3515283, 5319269, 6696068, 2580474, 3696938, 7197536, 78329164, 4091779 ####[facility] [address] [place] [address] CO2 [Moles/Vol] 28 mmol/L Normal 21-31 [facility] Comment on above: Performed By: #### 1 8896977, 3722422, 5036285, 7805301, 4689848, 8223766, 9858086, 13502706, 4813967 ####[facility] [address] [place] [address] Creatinine [Mass/Vol] 1.7 mg/dL High 0.5-1.3 [facility] Comment on above: Performed By: #### 1 8097622, 1831491, 7257222, 7857887, 7741797, 1400277, 2660609, 60049340, 8990255 ####[facility] [address] [place] [address] Glucose [Mass/Vol] 135 mg/dL Normal 55-199 [facility] Comment on above: Performed By: #### 1 0035321, 3144250, 1772128, 1670125, 5792752, 7657842, 5531290, 18795957, 4976161 ####[facility] [address] [place] [address] Potassium [Moles/Vol] 3.7 mmol/L Normal 3.5-5.3 [facility] Comment on above: Performed By: #### 1 9992795, 5717960, 6862680, 8984552, 5192010, 7331788, 7891609, 47987875, 5645290 ####[facility] [address] [place] [address] Sodium [Moles/Vol] 142 mmol/L Normal 135-145 [facility] Comment on above: Performed By: #### 1 1301001, 1116978, 5509042, 8659506, 4104847, 0158650, 3421673, 21076670, 3807392 ####[facility] [address] [place] [address] Urea nitrogen [Mass/Vol] 36 mg/dL High 5-21 [facility] Comment on above: Performed By: #### 1 2012246, 5119316, 6484008, 5474572, 2335788, 8159253, 4722931, 73261170, 3257025 ####[facility] [address] [place] [address] Blood Bank ID#on 04-17-2023 BBID# [id number] Invalid Interpretation Code [facility] Comment on above: Performed By: #### 1 6730120, 4144434, 17733541, 20616276 ####[facility] [address] [place] [address] CBC w/ Auto Diffon 3 Erythrocyte distribution width (RBC) [Ratio] 13.8 % Normal 10.9-14.2 [facility] Comment on above: Performed By: #### 1 [id number], 3128245, 2626259, 1571925, 7770655, 9592690, 4079382, 96722189, 6129759 #### [facility] Laboratory [address] [place] [address] Hematocrit (Bld) [Volume fraction] 31.5 % Low 34.0-46.0 [facility] Comment on above: Performed By: #### 1 [id number], 0362784, 1628856, 3458872, 2590082, 6700205, 4843981, 92830594, 9192125 #### [facility] [address] [place] [address] Hemoglobin (Bld) [Mass/Vol] 10.1 g/dL Low 12.0-16.0 [facility] Comment on above: Performed By: #### 1 3524224, 2430477, 0936406, 0739770, 2137252, 9518754, 3435660, 23812481, 1365021 #### [facility] [address] [place] [address] MCH (RBC) [Entitic mass] 29.4 pg Normal 27.0-34.0 [facility] Comment on above: Performed By: #### 1 5341373, 7658882, 6350369, 8569570, 8688992, 7788020, 2162136, 90982257, 6103173 #### [facility] [address] [place] [address] MCHC (RBC) [Mass/Vol] 32.1 g/dL Normal 31.4-36.0 [facility] Comment on above: Performed By: #### 1 1535798, 7121972, 6241768, 3891297, 7949381, 5353664, 1996703, 50196623, 0970208 #### [facility] [address] [place] [address] MCV (RBC) [Entitic vol] 91.4 fL Normal 80.0-100.0 [facility] Comment on above: Performed By: #### 1 8925705, 6769873, 6838808, 7822291, 8422887, 2917732, 2658233, 60026801, 1511103 #### [facility] [address] [place] [address] Platelet mean volume (Bld) [Entitic vol] 8.9 fL Normal 6.4-10.8 [facility] Comment on above: Performed By: #### 1 6906994, 9100829, 3259410, 6332641, 4296690, 8630302, 8855065, 20631688, 2904536 #### [facility] [address] [place] [address] Platelets (Bld) [#/Vol] 271.0 E9/L Normal 150.0-500.0 [facility] Comment on above: Performed By: #### 1 7024367, 9295768, 4756324, 6018394, 4139660, 3270150, 0841216, 53303875, 5798173 #### [facility] [address] [place] [address] RBC (Bld) [#/Vol] 3.4 E12/L Low 4.3-5.9 [facility] Comment on above: Performed By: #### 1 8528081, 2497841, 1961556, 9424765, 7692351, 0738662, 3386851, 73293961, 5003627 #### [facility] [address] [place] [address] WBC corrected for nucl RBC Auto (Bld) [#/Vol] 7.7 E9/L Normal 4.0-11.0 [facility] Comment on above: Performed By: #### 1 8983193, 5894702, 2132280, 7439480, 2530478, 7882648, 2554418, 93272371, 2382968 #### [facility] [address] [place] [address] CHEMISTRYOrdered By: Autumn Renteria on 04-17-2023 U [...] Sensitivity Troponin I Instructions For Use, Jessica [place], November 2017) Urea nitrogen [Mass/Vol] 36 mg/dL High 5 - 21 mg/dL Remisol Chem Urea nitrogen/Creatinine [Mass ratio] 21 mg/mg High 10 - 20 Remisol Chem COAGULATIONOrdered By: Hansa Grigsby on 04-17-2023 aPTT Coag (PPP) [Time] 32.6 s Normal 25.1 - 36.5 second(s) [facility] Comment on above: Interpretive Data: P krystle 15 days - 4 weeks 1 - 5 months 6 - 11 months 1 - 5 years 6 - 10 years 11 - 17 years PTT Mean: 35.4 (27.6-45.6) Mean: 33.5 (24.8-40.7) Mean: 32.4 (25.1-40.7) Mean: 31.6 (24.0-39.2) Mean: 31.6 (26.9-38.7) Mean: 31.0 (24.6-38.4) Pediatric Reference ranges were obtained from a study by jadon Maldonado prepared from 1437 samples obtained at 7 different centers using the same coagulation reagent and instrumentation as [facility]. Currently there are no coagulation studies available worldwide for children to 14 days, and no normal ranges. Heparin therapeutic range (represented by Anti-Factor Xa activity of 0.2 - 0.4 U/mL) corresponds to PTT of 56.6 - 109.0 sec. INR Coag (PPP) [Relative time] 1.2 {INR} Invalid Interpretation Code [facility] Comment on above: Interpretive Data: I NR results are specifically intended to assess patients stabilized on long-term Anticoagulation therapy suggested INR s Less Intensive Anticoagulation 2.0 3.0 Conventional Range 3.0 4.5 PT Coag (PPP) [Time] 13.1 s High 9.4 - 1 2.5 second(s) [facility] Comment on above: Interpretive Data: 1 5 days - 4 weeks 1 - 5 months 6 -11 months 1 5 years 6 10 years 11 -17 years Mean: 11.2 (9.5 12.6) Mean: 11.0 (9.7 12.8) Mean: 11.0 (9.8 13.0) Mean: 11.3 (9.9 13.4) Mean: 11.7 (10.0 14.6) Mean: 11.8 (10.0 - 14.1) Pediatric Reference ranges were obtained from a study by jadon Maldonado prepared from 1437 samples obtained at 7 different centers using the same coagulation reagent and instrumentation as [facility]. Currently there are no coagulation studies available worldwide for children to 14 days, and no normal ranges. Consent for Treatmenton 03-28 Consent for Treatment [id number] #1.00TIFF Normal [facility] Ethanolon 04-17-2023 Ethanol Lvl 83 mg/dL Abnormal <=7 [facility] Comment on above: Result Comment: Crit ical Result S_ETOH:83 Called to and read back by: TAI BARBA at: 04/17/2023 21:19:24 by:CADY RENTERIA Critical Result Verified by Repeat Analysis Performed By: #### 2 [id number] #### [facility] [address] [place] [address] HEMATOLOGYOrdered By: SYSTEM SYSTEM on 04-17-2023 Basophils/100 [...] 13.8 % Normal 10.9 - 14.2 % [facility] Hematocrit (Bld) [Volume fraction] 31.5 % Low 34.0 - 46.0 % [facility] Hemoglobin (Bld) [Mass/Vol] 10.1 g/dL Low 12.0 - 16.0 gm/dL [facility] MCH (RBC) [Entitic mass] 29.4 pg Normal 27.0 - 34.0 pg [facility] MCHC (RBC) [Mass/Vol] 32.1 g/dL Normal 31.4 - 36.0 gm/dL [facility] MCV (RBC) [Entitic vol] 91.4 fL Normal 80.0 - 100.0 fL [facility] Platelet mean volume (Bld) [Entitic vol] 8.9 fL Normal 6.4 - 10.8 fL [facility] Platelets (Bld) [#/Vol] 271.0 E9/L Normal 150.0 - 500.0 E9/L [facility] RBC (Bld) [#/Vol] 3.4 E12/L Low 4.3 - 5.9 E12/L [facility] WBC corrected for nucl RBC Auto (Bld) [#/Vol] 7.7 E9/L Normal 4.0 - 11.0 E9/L [facility] Hep Func Panelon 04-17-2023 Albumin [Mass/Vol] 4.1 g/dL Normal 3.3-5.0 [facility] Comment on above: Performed By: #### 1 [id number], 0555667, 2738015, 8046201, 9765069, 8372458, 8147587, 94211076, 6301007 ####[facility] [address] [place] [address] Albumin/Globulin [Mass ratio] 1.2 {ratio} Normal 1.1-2.2 [facility] Comment on above: Performed By: #### 1 7329234, 3090022, 8159887, 5301358, 2914031, 8678392, 9550301, 65910536, 6262578 ####[facility] [address] [place] [address] Alk Phos 68 Int._Unit/L Normal 21-98 [facility] Comment on above: Performed By: #### 1 0133656, 4407345, 0718647, 5114279, 3750919, 2233014, 5087174, 65856363, 9286913 ####[facility] [address] [place] [address] ALT 14 Int._Unit/L Normal 6-46 [facility] Comment on above: Performed By: #### 1 5787408, 1061698, 2603754, 4279364, 1371041, 0237915, 8834866, 71467768, 2804412 ####[facility] [address] [place] [address] AST 14 Int._Unit/L Normal 5-43 [facility] Comment on above: Performed By: #### 1 3072461, 5087305, 2197107, 9422108, 5967117, 9387967, 4524516, 69721397, 1981514 ####[facility] [address] [place] [address] Bili Direct 0.2 mg/dL Normal 0.0-0.4 [facility] Comment on above: Performed By: #### 1 2110312, 9388861, 9954276, 8285409, 8964219, 6806208, 8266865, 31406347, 3803805 ####[facility] [address] [place] [address] Bili Indirect 0.6 mg/dL Normal 0.1-0.9 [facility] Comment on above: Performed By: #### 1 9586292, 8838710, 0796982, 9168477, 9498284, 7493572, 6638841, 10033362, 9086531 ####[facility] [address] [place] [address] Bili Total 0.8 mg/dL Normal 0.0-1.1 [facility] Comment on above: Performed By: #### 1 3487306, 3749900, 5252891, 5153104, 7745532, 3807642, 1701660, 56101533, 1426134 ####[facility] [address] [place] [address] Globulin (S) [Mass/Vol] 3.4 g/dL Normal 1.4-4.0 [facility] Comment on above: Performed By: #### 1 5181762, 7278575, 8103811, 2345362, 5587446, 2805265, 3058527, 04187696, 1614037 ####[address] [place] [address] Protein [Mass/Vol] 7.5 g/dL Normal 6.0-7.8 [facility] Comment on above: Performed By: #### 1 7826403, 0799504, 2022340, 5462804, 9924177, 4307463, 9721328, 90429000, 5124227 ####[facility] [address] [place] [address] Lactic Acidon 04-17-2023 Lactic Acid Lvl 2.1 mmol/L Normal 0.5-2.2 [facility] Comment on above: Performed By: #### 1 5446318, 4756759, 5451095, 2781904, 0013973, 1268482, 6841039, 80737045, 8883690 ####[facility] [address] [place] [address] Lipase Levelon 04-17-2023 Lipase Lvl 235 unit/L High 13-58 [facility] Comment on above: Performed By: #### 1 1124429, 2707612, 9773976, 0554081, 7264008, 7765948, 3046268, 76512383, 3788470 ####[facility] [address] [place] [address] Monitor Recordon 04-17-2023 Monitor Record [id number] 9#1.00TIFF Normal [facility] Monitor Record [id number] 3#1.00TIFF Normal [facility] Monitor Record [id number] 9#1.00TIFF Normal [facility] PT & PTTon 04-17-2023 aPTT Coag (PPP) [Time] 32.6 second(s) Normal 25.1-36.5 [facility] Comment on above: Result Comment: [...] the same coagulation reagent and instrumentation as [facility]. Currently there are no coagulation studies available worldwide for children to 14 days, and no normal ranges. Heparin therapeutic range (represented by Anti-Factor Xa activity of 0.2 - 0.4 U/mL) corresponds to PTT of 56.6 - 109.0 sec. Performed By: #### 1 2350482, 4076977, 7308590, 5618181, 7875020, 4590561, 3008381, 78732591, 3907588 #### [facility] Laboratory [address] [place] [address] INR Coag (PPP) [Relative time] 1.2 {INR} Invalid Interpretation Code [facility] Comment on above: Result Comment: INR results are specifically intended to assess patients stabilized on long-term Anticoagulation therapy suggested INR?s ?Less Intensive Anticoagulation? 2.0 ? 3.0 Conventional Range 3.0 ? 4.5 Performed By: #### 1 5711784, 9600874, 3177006, 6198763, 6011240, 1517986, 2910282, 79698120, 5592922 #### [facility] Laboratory [address] [place] [address] PT Coag (PPP) [Time] 13.1 second(s) High 9.4-12.5 [facility] Comment on above: Result Comment: [...] the same coagulation reagent and instrumentation as [facility]. Currently there are no coagulation studies available worldwide for children to 14 days, and no normal ranges. Performed By: #### 1 5496231, 9279284, 6976965, 2933217, 4570376, 0536185, 8520247, 99242002, 0951680 #### [facility] Laboratory [address] [place] [address] Pre-Arrival Noteon 3 Pre-Arrival Note Pre-Arrival Summary Name: , BEA Current Date: 04/17/2023 20:28:42 EST Gender: Female Date of : Age: 73 Pre-Arrival Type: EMS ETA: 04/17/2023 20:52:00 EST Primary Care Physician: Presenting Problem: Fall, Hit head Pre-Arrival User: Bernadine Littlejohn RN Referring Source: Location: [place] Completion Date/Time: 04/17/2023 20:22:00 [facility] Emergency Department Pre-Hospital Report Form Vital Signs: 107/54, 80HR, 97% RA Pre-Hospital Report: Fall, Hit head on table Treatment in Route: 2LAC Response to Treatment: Misc. Issues: Normal [facility] RAD - Preliminary Cat Scan R eporton 04-17-2023 RAD - Preliminary Cat Scan Report [id number] 6#1.00TIFF Normal [facility] Troponinon 04-17-2023 Troponin 8.90 pg/mL Low 10.10-27.10 [facility] Comment on above: Result Comment: The 95% CI (Confidence Interval) PPV (Positive Predictive Value) for myocardial infarction in females is 38 pg/mL, in males 51 pg/mL. The results should be used in conjunction with clinical conditions of myocardial infarction. (Access High Sensitivity Troponin I Instructions For Use, [employer], November 2017) Performed By: #### 1 4577319, 7550658, 2128731, 8797671, 1026089, 9135250, 0551851, 51633354, 9225252 ####[facility] [address] [place] [address] U Drug Screenon 04-17-2023 U Amph Scr Negative Invalid Interpretation Code [facility] Comment on above: Performed By: #### 2 424342 ####[facility] [address] [place] [address] U Cookie Scr Negative Invalid Interpretation Code [facility] Comment on above: Performed By: #### 2 004410 ####[facility] [address] [place] [address] U Benzodia Scr Negative Invalid Interpretation Code [facility] Comment on above: Performed By: #### 2 356306 ####[facility] [address] [place] [address] U Cannab Scr Negative Invalid Interpretation Code [facility] Comment on above: Performed By: #### 2 683269 ####[facility] [address] [place] [address] U Cocaine Scr Negative Invalid Interpretation Code [facility] Comment on above: Performed By: #### 2 415025 ####[facility] [address] [facility] [place] [address] U Opiate Scr Negative Invalid Interpretation Code [facility] Comment on above: Performed By: #### 2 033145 ####[facility] [address] [place] [address] U PCP Scr Negative Invalid Interpretation Code [facility] Comment on above: Performed By: #### 2 970172 ####[facility] [address] [place] [address] eGFRon 04-17-2023 eGFR 31 mL/min/1.73 m2 Low >=59 [facility] Comment on above: Order Comment: Order added by Discern Expert. Performed By: #### 1 9305507, 1449284, 9640782, 6553091, 6858231, 7240959, 1029385, 54617345, 9548673 ####[facility] [address] [place] [address] GLYCOHEMOGLOBIN A1Con 2022 ADA RECOMMENDATION SEE BELOW Normal [facility] Comment on above: Result Comment: ADA RECOMMENDED LIMIT 4.0 - 6.0 ADA THERAPEUTIC TARGET < 7.0 ACTION SUGGESTED > 7.0 Performed By: #### A 1C #### [facility] [address] [address] [address] Vanessa Denis Glucose [Mass/Vol] 223 mg/dL Normal [facility] Comment on above: Performed By: #### A 1C #### [facility] [address] [address] [address] Vanessa Denis HbA1c (Bld) [Mass fraction] 9.4 % Critically high 4.5-6.2 [facility] Comment on above: Performed By: #### A 1C #### [facility] [address] [address] [address] Vanessa Denis PROF 14(COMP METB)on 023 Albumin [Mass/Vol] 3.4 g/dL Normal 3.4-5.0 [facility] Comment on above: Performed By: #### C MP #### [facility] [address] [address] [address] Vanessa Denis Albumin/Globulin [Mass ratio] 0.8 {ratio} Normal [facility] Comment on above: Performed By: #### C MP #### [facility] [address] [place] [address] Dr. Vanessa Denis ALP [Catalytic activity/Vol] 71 U/L Normal 46-116 [facility] Comment on above: Performed By: #### C MP #### [facility] [address] [address] [address] Vanessa Denis ALT [Catalytic activity/Vol] 25 U/L Normal 14-59 [facility] Comment on above: Performed By: #### C MP #### [facility] [address] [place] [address] Dr. Vanessa Denis Anion gap [Moles/Vol] 6.7 mmol/L Normal [facility] Comment on above: Performed By: #### C MP #### [facility] [address] [place] [address] Dr. Vanessa Denis AST [Catalytic activity/Vol] 19 U/L Normal 15-37 [facility] Comment on above: Performed By: #### C MP #### [facility] [address] [place] [address] Dr. Vanessa Denis Bilirubin [Mass/Vol] 0.9 mg/dL Normal 0.2-1.0 [facility] Comment on above: Performed By: #### C MP #### [facility] [address] [place] [address] Dr. Vanessa Denis Calcium [Mass/Vol] 9.5 mg/dL Normal 8.5-10.1 [facility] Comment on above: Performed By: #### C MP #### [facility] [address] [place] [address] Dr. Vanessa Denis Chloride [Moles/Vol] 102 mmol/L Normal 98-107 [facility] Comment on above: Performed By: #### C MP #### [facility] [address] [address] [address] Vanessa Denis CO2 [Moles/Vol] 35.2 mmol/L Critically high 21.0-32.0 [facility] Comment on above: Performed By: #### C MP #### [facility] [address] [place] [address] Dr. Vanessa Denis Creatinine [Mass/Vol] 1.23 mg/dL Critically high 0.55-1.02 [facility] Comment on above: Performed By: #### C MP #### [facility] [address] [place] [address] Dr. Vanessa Denis EGFR-AF NAURUAN 52 mL/min/1.73m2 Critically low >=60 [facility] Comment on above: Performed By: #### C MP #### [facility] [address] [place] [address] Dr. Vanessa Denis EGFR-NON AF NAURUAN 43 mL/min/1.73m2 Critically low >=60 [facility] Comment on above: Performed By: #### C MP #### [facility] [address] [place] [address] Dr. Vanessa Denis Globulin (S) [Mass/Vol] 4.1 g/dL Normal [facility] Comment on above: Performed By: #### C MP #### [facility] [address] [place] [address] Dr. Vanessa Denis Glucose [Mass/Vol] 267 mg/dL Critically high 74-106 [facility] Comment on above: Performed By: #### C MP #### [facility] [address] [place] [address] Dr. Vanessa Denis Potassium [Moles/Vol] 4.9 mmol/L Normal 3.5-5.1 [facility] Comment on above: Performed By: #### C MP #### [facility] [address] [place] [address] Dr. Vanessa Denis Protein [Mass/Vol] 7.5 g/dL Normal 6.4-8.2 [facility] Comment on above: Performed By: #### C MP #### [facility] [address] [place] [address] Dr. Vanessa Denis Sodium [Moles/Vol] 139 mmol/L Normal 136-145 [facility] Comment on above: Performed By: #### C MP #### [facility] [address] [address] [address] Vanessa Denis Urea nitrogen [Mass/Vol] 26.0 mg/dL Critically high 7.0-18.0 [facility] Comment on above: Performed By: #### C MP #### [facility] [address] [address] [address] Vanessa Denis Urea nitrogen/Creatinine [Mass ratio] 21.1 mg/mg Normal [facility] Comment on above: Performed By: #### C MP #### [facility] [address] [address] [address] Vanessa Denis CTA CHEST WO W [...] by: TWYLA CONTEH Date: 2022-05-30 14:23 Normal [facility] GLYCOHEMOGLOBIN A1Con 2022 ADA RECOMMENDATION SEE BELOW Normal [facility] Comment on above: Result Comment: ADA RECOMMENDED LIMIT 4.0 - 6.0 ADA THERAPEUTIC TARGET < 7.0 ACTION SUGGESTED > 7.0 Performed By: #### A 1C #### [facility] [address] [place] [address] Dr. Vanessa Denis Glucose [Mass/Vol] 203 mg/dL Normal [facility] Comment on above: Performed By: #### A 1C #### [facility] [address] [place] [address] Dr. Vanessa Denis HbA1c (Bld) [Mass fraction] 8.7 % Critically high 4.5-6.2 [facility] Comment on above: Performed By: #### A 1C #### [facility] [address] [place] [address] Dr. Vanessa Denis HEMOGRAM AND PLATELon 2022 Hematocrit (Bld) [Volume fraction] 45.4 % Normal 36.0-48.0 [facility] Comment on above: Performed By: #### H H #### [facility] [address] [place] [address] Dr. Vanessa Denis Hemoglobin (Bld) [Mass/Vol] 14.5 g/dL Normal 12.0-16.0 [facility] Comment on above: Performed By: #### H H #### [facility] [address] [place] [address] Dr. Vanessa Denis MCH (RBC) [Entitic mass] 29.0 pg Normal 26.7-34.0 [facility] Comment on above: Performed By: #### H H #### [facility] [address] [place] [address] Dr. Vanessa Denis MCHC (RBC) [Mass/Vol] 31.9 g/dL Normal 29.9-35.2 [facility] Comment on above: Performed By: #### H H #### [facility] [address] [place] [address] Dr. Vanessa Denis MCV (RBC) [Entitic vol] 90.8 fL Normal 81.0-99.0 [facility] Comment on above: Performed By: #### H H #### [facility] [address] [place] [address] Dr. Vanessa Denis PLT 164 103/ul Normal 150-450 [facility] Comment on above: Performed By: #### H H #### [facility] [address] [address] [address] Vanessa Denis RBC 5.00 106/ul Normal 4.20-5.40 [facility] Comment on above: Performed By: #### H H #### [facility] [address] [address] [address] Vanessa Denis WBC 7.6 103/ul Normal 4.0-11.0 [facility] Comment on above: Performed By: #### H H #### [facility] [address] [address] [address] Vanessa Denis LIPID PROFILEon 05-30-2022 CHOL-HDL RATIO NORM SEE BELOW Normal [facility] Comment on above: Result Comment: 3.3 - 4.4 LOW RISK 4.4 - 7.1 AVERAGE RISK 7.1 - 11.0 MODERATE RISK >11.0 HIGH RISK Performed By: #### L IPID, TSH #### [facility] [address] [place] [address] Dr. Vanessa Denis Cholesterol [Mass/Vol] 110 mg/dL Normal <=200 [facility] Comment on above: Performed By: #### L IPID, TSH #### [facility] [address] [place] [address] Dr. Vanessa Denis Cholesterol in HDL [Mass/Vol] 51 mg/dL Normal 40-60 [facility] Comment on above: Performed By: #### L IPID, TSH #### [facility] [facility] [address] [address] [address] Vanessa Denis Cholesterol in LDL [Mass/Vol] 39.4 mg/dL Normal [facility] Comment on above: Performed By: #### L IPID, TSH #### [facility] [address] [place] [address] Dr. Vanessa Denis Cholesterol.total/Chol esterol in HDL [Mass ratio] 2.2 {ratio} Normal [facility] Comment on above: Performed By: #### L IPID, TSH #### [facility] [address] [address] [address] Vanessa Denis HDL NORMAL > or = 60 mg/dl - LOW CARDIOVASCULAR RISK <40 mg/dl - HIGH CARDIOVASCULAR RISK Normal [facility] Comment on above: Performed By: #### L IPID, TSH #### [facility] [address] [address] [address] Vanessa Denis LDL CALC NORMAL SEE BELOW Normal [facility] Comment on above: Result Comment: <100 mg/dl OPTIMAL 100 - 129 mg/dl NEAR OR ABOVE OPTIMAL 130 - 159 mg/dl BORDERLINE HIGH 160 - 189 mg/dl HIGH >190 mg/dl VERY HIGH Performed By: #### L IPID, TSH #### [facility] [address] [address] [address] Vanessa Denis Triglyceride [Mass/Vol] 98 mg/dL Normal <=150 [facility] Comment on above: Performed By: #### L IPID, TSH #### [facility] [address] [place] [address] Dr. Vanessa Denis VLDL CALC 19.6 mg/dL Normal [facility] Comment on above: Performed By: #### L IPID, TSH #### [facility] [address] [address] [address] Vanessa Denis PROF 14(COMP METB)on 023 Albumin [Mass/Vol] 3.4 g/dL Normal 3.4-5.0 [facility] Comment on above: Performed By: #### C MP #### [facility] [address] [address] [address] Vanessa Denis Albumin/Globulin [Mass ratio] 0.9 {ratio} Normal [facility] Comment on above: Performed By: #### C MP #### [facility] [address] [address] [address] Vanessa Denis ALP [Catalytic activity/Vol] 68 U/L Normal 46-116 [facility] Comment on above: Performed By: #### C MP #### [facility] [address] [address] [address] Vanessa Denis ALT [Catalytic activity/Vol] 23 U/L Normal 14-59 [facility] Comment on above: Performed By: #### C MP #### [facility] [address] [address] [address] Vanessa Denis Anion gap [Moles/Vol] 10.1 mmol/L Normal [facility] Comment on above: Performed By: #### C MP #### [facility] [address] [address] [address] Vanessa Denis AST [Catalytic activity/Vol] 21 U/L Normal 15-37 [facility] Comment on above: Performed By: #### C MP #### [facility] [address] [address] [address] Vanessa Denis Bilirubin [Mass/Vol] 0.9 mg/dL Normal 0.2-1.0 [facility] Comment on above: Performed By: #### C MP #### [facility] [address] [address] [address] Vanessa Denis Calcium [Mass/Vol] 9.2 mg/dL Normal 8.5-10.1 [facility] Comment on above: Performed By: #### C MP #### [facility] [address] [address] [address] Vanessa Denis Chloride [Moles/Vol] 101 mmol/L Normal 98-107 [facility] Comment on above: Performed By: #### C MP #### [facility] [address] [address] [address] Vanessa Denis CO2 [Moles/Vol] 31.5 mmol/L Normal 21.0-32.0 [facility] Comment on above: Performed By: #### C MP #### [facility] [address] [address] [address] Vanessa Denis Creatinine [Mass/Vol] 1.15 mg/dL Critically high 0.55-1.02 [facility] Comment on above: Performed By: #### C MP #### [facility] [address] [address] [address] Vanessa Denis EGFR-AF NAURUAN 56 mL/min/1.73m2 Critically low >=60 [facility] Comment on above: Performed By: #### C MP #### [facility] [address] [address] [address] Vanessa Denis EGFR-NON AF NAURUAN 46 mL/min/1.73m2 Critically low >=60 [facility] Comment on above: Performed By: #### C MP #### [facility] [address] [address] [address] Vanessa Denis Globulin (S) [Mass/Vol] 4.0 g/dL Normal [facility] Comment on above: Performed By: #### C MP #### [facility] [address] [address] [address] Vanessa Denis Glucose [Mass/Vol] 254 mg/dL Critically high 74-106 [facility] Comment on above: Performed By: #### C MP #### [facility] [address] [address] [address] Vanessa Denis Potassium [Moles/Vol] 4.6 mmol/L Normal 3.5-5.1 [facility] Comment on above: Performed By: #### C MP #### [facility] [address] [address] [address] Vanessa Denis Protein [Mass/Vol] 7.4 g/dL Normal 6.4-8.2 [facility] Comment on above: Performed By: #### C MP #### [facility] [address] [address] [address] Vanessa Denis Sodium [Moles/Vol] 138 mmol/L Normal 136-145 [facility] Comment on above: Performed By: #### C MP #### [facility] [address] [address] [address] Vanessa Denis Urea nitrogen [Mass/Vol] 24.0 mg/dL Critically high 7.0-18.0 [facility] Comment on above: Performed By: #### C MP #### [facility] [address] [address] [address] Vanessa Denis Urea nitrogen/Creatinine [Mass ratio] 20.9 mg/mg Normal [facility] Comment on above: Performed By: #### C MP #### [facility] [address] [address] [address] Vanessa Denis TSHon 05-30-2022 TSH 2.067 uIU/mL Normal 0.358-3.740 [facility] Comment on above: Performed By: #### L IPID, TSH #### [facility] [address] [address] [address] Vanessa Denis Vital Signs Date Time Vital Sign Value Performing Clinician Facility 12-10-2023 14:55-0400 Body height 152.4 cm [facility] 12-10-2023 14:55-0400 Body mass index (BMI) [Ratio] 32.2 kg/m2 [facility] 12-10-2023 14:55-0400 Body temperature 97.6 [degF] [facility] 12-10-2023 14:55-0400 Body weight 74.89 kg [facility] 12-10-2023 14:55-0400 Diastolic blood pressure 81 mm[Hg] [facility] 12-10-2023 14:55-0400 Heart rate 95 /min [facility] 12-10-2023 14:55-0400 Respiratory rate 16 /min [facility] 12-10-2023 14:55-0400 SaO2% (BldA) [Mass fraction] 96 % [facility] 12-10-2023 14:55-0400 Systolic blood pressure 134 mm[Hg] [facility] 11-24-2023 11:02-0400 Blood Pressure Location Jo Ann Orzech [facility] 11-24-2023 11:02-0400 Diastolic blood pressure 71 mm[Hg] Jo Ann Orzech [facility] 11-24-2023 11:02-0400 Heart rate 69 /min Jo Ann Orzech [facility] 11-24-2023 11:02-0400 Respiratory rate 16 /min Jo Ann Orzech [facility] 11-24-2023 11:02-0400 Systolic blood pressure 133 mm[Hg] Jo Ann Konrad [facility] 10-13-2023 10:00-0400 Blood Pressure Location VIVI OZUNA [facility] 10-13-2023 10:00-0400 Body temperature 98.06 [degF] VIVI DAMONRY [facility] 10-13-2023 10:00-0400 Diastolic blood pressure 78 mm[Hg] VIVI LAITH [facility] 10-13-2023 10:00-0400 Heart rate 78 /min VIVI DAMONRY [facility] 10-13-2023 10:00-0400 Systolic blood pressure 116 mm[Hg] VIVI DAMONRY [facility] 06-24-2023 13:52-0500 Blood Pressure Location Doug FERNANDEZ [facility] 06-24-2023 13:52-0500 Diastolic blood pressure 78 mm[Hg] Doug SORTOL [facility] 06-24-2023 13:52-0500 Heart rate 68 /min Doug NILL [facility] 06-24-2023 13:52-0500 Respiratory rate 16 /min Doug SORTOL [facility] 06-24-2023 13:52-0500 Systolic blood pressure 110 mm[Hg] Doug SORTOL [facility] 06-09-2023 11:52-0500 Body height 152.4 cm Dg Proctor MD Work Phone: [facility] 06-09-2023 11:52-0500 Body mass index (BMI) [Ratio] 32.42 kg/m2 Dg Proctor MD Work Phone: [facility] 06-09-2023 11:52-0500 Body weight 75.3 kg Dg Proctor MD Work Phone: [facility] 04-18-2023 00:39-0500 Diastolic blood pressure 95 mm[Hg] Kaylinn Dokken [facility] 04-18-2023 00:39-0500 Heart rate 74 /min Kaylinn Dokken [facility] 04-18-2023 00:39-0500 Mean blood pressure 117 mm[Hg] Kaylinn Dokken [facility] 04-18-2023 00:39-0500 Respiratory rate 22 /min Kaylinn Dokken [facility] 04-18-2023 00:39-0500 SaO2% (BldA) [Mass fraction] 97 % Kaylinn Dokken [facility] 04-18-2023 00:39-0500 Systolic blood pressure 161 mm[Hg] Kaylinn Dokken [facility] 04-17-2023 23:43-0500 Diastolic blood pressure 71 mm[Hg] Kaylinn Dokken [facility] 04-17-2023 23:43-0500 Heart rate 63 /min Kaylinn Dokken [facility] 04-17-2023 23:43-0500 Mean blood pressure 98 mm[Hg] Kaylinn Dokken [facility] 04-17-2023 23:43-0500 Respiratory rate 15 /min Kaylinn Dokken [facility] 04-17-2023 23:43-0500 SaO2% (BldA) [Mass fraction] 96 % Kaylinn Dokken [facility] 04-17-2023 23:43-0500 Systolic blood pressure 151 mm[Hg] Kaylinn Dokken [facility] 04-17-2023 23:23-0500 Body temperature 97.88 [degF] Kaylinn Dokken [facility] 04-17-2023 23:23-0500 Diastolic blood pressure 82 mm[Hg] Kaylinn Dokken [facility] 04-17-2023 23:23-0500 Heart rate 68 /min Kaylinn Dokken [facility] 04-17-2023 23:23-0500 Mean blood pressure 99 mm[Hg] Kaylinn Dokken [facility] 04-17-2023 23:23-0500 Respiratory rate 20 /min Kaylinn Dokken [facility] 04-17-2023 23:23-0500 SaO2% (BldA) [Mass fraction] 94 % Kaylinn Dokken [facility] 04-17-2023 23:23-0500 Systolic blood pressure 134 mm[Hg] Kaylinn Dokken [facility] 04-17-2023 22:39-0500 Respiratory rate 18 /min Kaylinn Dokken [facility] 04-17-2023 21:50-0500 Respiratory rate 18 /min Kaylinn Dokken [facility] 04-17-2023 20:50-0500 Body temperature 98.06 [degF] Kaylinn Dokken [facility] 04-17-2023 20:50-0500 Heart rate 72 /min Kaylinn Dokken [facility] 04-17-2023 20:50-0500 Respiratory rate 18 /min Kaylinn Dokken [facility] 04-17-2023 20:29-0500 Body temperature 98.06 [degF] Kaylinn Dokken [facility] 04-17-2023 20:29-0500 Heart rate 76 /min Karynaylinn Dokken [facility] 02-23-2023 13:40-0400 Body height 152.4 cm Nicolás Orlando Other [facility] Other 02-23-2023 13:40-0400 Body mass index (BMI) [Ratio] 34.72 kg/m2 Nicolás Orlando Other [facility] Other 02-23-2023 13:40-0400 Body temperature 96.8 [degF] Nicolás Orlando Other [facility] Other 02-23-2023 13:40-0400 Body weight 80.65 kg Nicolás Orlando Other [facility] Other 02-23-2023 13:40-0400 Diastolic blood pressure 82 mm[Hg] Nicolás Orlando Other [facility] Other 02-23-2023 13:40-0400 Respiratory rate 20 /min Nicolás Orlando Other [facility] Other 02-23-2023 13:40-0400 SaO2% (BldA) [Mass fraction] 99 % Nicolás Orlando Other [facility] Other 02-23-2023 13:40-0400 Systolic blood pressure 132 mm[Hg] Nicolás Orlando Other [facility] Other 12-31-2022 09:00-0400 Body height 152.4 cm Nicolás Orlando Other [facility] Other 12-31-2022 09:00-0400 Body mass index (BMI) [Ratio] 32.14 kg/m2 Nicolás Orlando Other [facility] Other 12-31-2022 09:00-0400 Body temperature 96.3 [degF] Nicolás Orlando Other [facility] Other 12-31-2022 09:00-0400 Body weight 74.66 kg Nicolás Orlando Other [facility] Other 12-31-2022 09:00-0400 Diastolic blood pressure 56 mm[Hg] Nicolás Orlando Other [facility] Other 12-31-2022 09:00-0400 Respiratory rate 20 /min Nicolás Orlando Other [facility] Other 12-31-2022 09:00-0400 SaO2% (BldA) [Mass fraction] 98 % Nicolás Orlando Other [facility] Other 12-31-2022 09:00-0400 Systolic blood pressure 91 mm[Hg] Nicolás Perry Other [facility] ([employer]) Other Encounters Encounter Date Encounter Type Care Provider Facility Start: 01-05-2024 ambulatory [facility] Facility:Philip Anguianoue Start: 12-11-2023 End: 12-11-2023 ambulatory [facility] Start: 12-11-2023 Encounter for other preprocedural examination [facility] Start: 12-11-2023 Encounter for preprocedural cardiovascular examination [facility] Start: 12-10-2023 End: 12-10-2023 ambulatory [facility] Work Phone: Start: 12-10-2023 End: 12-10-2023 Patient encounter procedure [facility] Work Phone: Start: 11-24-2023 End: 11-24-2023 ambulatory [facility] Facility:TIFFANIE Oliver Start: 11-24-2023 End: 11-24-2023 Patient encounter procedure Jo Ann Silvestre [facility] Start: 11-17-2023 Non-patient / Non-visit [facility] Work Phone: Start: 11-16-2023 Non-patient / Non-visit [facility] Work Phone: Start: 10-13-2023 End: 10-13-2023 ambulatory [facility] Facility:TIFFANIE WillBenito Start: 10-13-2023 End: 10-13-2023 Patient encounter procedure VIVI OZUNA [facility] Start: 09-08-2023 End: 09-08-2023 ambulatory DG D BEJ Not Available Start: 06-30-2023 End: 06-30-2023 ambulatory [facility] Facility:TIFFANIE Oliver Start: 06-24-2023 End: 06-24-2023 ambulatory Doug FERNANDEZ Facility:PRE[facility] Oliver Start: 06-24-2023 End: 06-24-2023 Patient encounter procedure Doug SORTOL [facility] Start: 06-09-2023 Bamboo flowsheet Dg Proctor MD Work Phone: [facility] Start: 06-09-2023 Bamboo flowsheet Dg Proctor MD Work Phone: [facility] Start: 06-09-2023 End: 06-09-2023 ambulatory DG D BEJ Not Available Start: 06-09-2023 End: 06-09-2023 Office outpatient new 45 minutes Dg Proctor MD Work Phone: [facility] Comment on above: Sequelae of cerebral infarction (Primary Dx); Polyneuropathy Start: 05-25-2023 ambulatory [facility] Facility:Ev Oliver Start: 05-21-2023 End: 05-21-2023 ambulatory Nicolás Orlando Other [facility] Other Start: 05-21-2023 Office outpatient vi sit 25 minutes Nicolás Orlando [facility] Start: 04-17-2023 End: 04-18-2023 Emergency department patient visit Nancy Stern [facility] Start: 04-08-2023 End: 04-08-2023 ambulatory Nicolás Orlando Other [facility] Other Start: 04-08-2023 Telephone encounter Nicolás Orlando [facility] [employer] [facility] Start: 02-27-2023 ambulatory [facility] Facility:Philip U Benito Start: 02-23-2023 End: 02-23-2023 ambulatory Nicolás Orlando Other [facility] Other Start: 02-23-2023 Office outpatient vi sit 25 minutes Nicolás Orlando [facility] Start: 12-31-2022 End: 12-31-2022 ambulatory Nicolás Orlando Other [facility] Other Start: 12-31-2022 Office outpatient ne w 45 minutes Nicolás Orlando [facility] Start: 08-13-2022 End: 08-13-2022 ambulatory PRO SHAMMO Facility:[facility] Start: 08-11-2022 End: 08-11-2022 ambulatory PRO SHAMMO Facility:[facility] Start: 05-30-2022 End: 05-31-2022 ambulatory PRO [facility] Facility:[facility] Start: 05-28-2022 End: 05-28-[address] JENIFER CASTILLO Facility:[facility] Start: 07-08-2021 End: 02-03-2022 ambulatory [facility] Procedures Date Procedure Procedure Detail Performing Clinician Start: 07-19-2020 Cystourethroscopy wi th dilation of urethral stricture VIVI OZUNA Start: 05-19-2013 Colonoscopy Doug CAMILO Colonoscopy Nancy [...] Care Activity Detail Author Start: 03-07-2024 Pneumococcal Vaccine: 65+ Years (3 - PPSV23 or PCV20) Pneumococcal Vaccine: 65+ Years (3 - PPSV23 or PCV20) [facility] Start: 03-07-2024 Pneumococcal Vaccine: 65+ Years (3 of 3 - PPSV23 or PCV20) Pneumococcal Vaccine: 65+ Years (3 of 3 - PPSV23 or PCV20) [facility] Start: 09-08-2023 End: 09-08-2023 Patient encounter procedure 09/08/2023 1:45 PM EDT Office Visit [facility] [address] [place] [address] Dg Proctor MD [address] [facility] [address] [place] [address] [facility] Start: 1950 Medicare Annual Wellness (AWV) Medicare Annual Wellness (AWV) [facility] Start: 1950 Screening for malignant neoplasm of colon [facility] Renal function 2000 panel - Serum or Plasma [facility] Immunizations Immunization Date Immunization Notes Care Provider Fa cility 02-19-2023 influenza virus vaccine, unspecified formulation Doug FERNANDEZ [facility] [place] 02-06-2022 SARS-CoV-2 (COVID-19 ) [id number] Doug FERNANDEZ [facility] [place] 05-06-2021 SARS-CoV-2 (COVID-19 ) mRNA BNT-162b2 vax Doug FERNANDEZ [facility] [place] 07-06-2020 SARS-CoV-2 (COVID-19 ) Ad26 vaccine, recombinant Doug FERNANDEZ [facility] [place] Payers Date Payer Category Payer Medicaid MEDICAID [facility] [id number] 2021-Present [phone] [address] [place] [address] Medicaid [id number] 2020 Private Health Insurance [id number] 2013 Medicare MEDICARE MEDICAR E PART B [id number] 2013-[place] [address] Medicare [id number] 1959 Medicaid [id number] 1959 Medicare [id number] 1948 Unknown [id number] [id number]. 593 1948 Unknown [id number] 2.16.840.1.751401.3.579.2. 593 1948 Unknown [id number] 2.16.840.1.057146.3.579.2. 593 1948 Unknown [id number] 2.16.840.1.107083.3.579.2. 593 1948 Unknown [id number] 2.16.840.1.866202.3.579.2. 593 1948 Unknown [id number] 2.16.840.1.359461.3.579.2. 1259 1948 Unknown [id number] 2.16.840.1.802155.3.579.2. 1259 1948 Unknown [id number] 2.16.840.1.187892.3.579.2. 727 1948 Unknown [id number] 2.16.840.1.335614.3.579.2. 727 1948 Unknown [id number] 2.16.840.1.146090.3.579.2. 727 1948 Unknown [id number] 2.16.840.1.607379.3.579.2. 727 1948 Unknown [id number] 2.16.840.1.644871.3.579.2. 727 1948 Unknown [id number] 2.16.840.1.339146.3.579.2. 727 1948 Unknown [id number] 2.16.840.1.631963.3.579.2. 727 1948 Unknown [id number] 2.16.840.1.822279.3.579.2. 1286 Worker's Compensation [id number] Social History Date Type Detail Facility Unknown if ever smoked [facility] Other Sex Assigned At [facility] Start: 07-10-2020 End: 12-10-2023 Tobacco smoking status Ex-smoker (finding) [facility] Tobacco smoking status NHIS Tobacco smoking consumption unknown [facility] Start: 1950 Sex Assigned At Not on file [facility] Tobacco smoking status Never [facility] Start: 1950 Sex Assigned At Female [facility] Functional Status Date Assessment Result Facility 11-24-2023 Functional Status N/A [facility] 10-13-2023 Functional Status N/A [facility] 06-24-2023 Functional Status N/A [facility] 04-17-2023 Functional Status N/A [facility] Clinical Notes 12-31-2022 to 11-28-2023 Dg Proctor MD - 06/09/2023 12:27 PM Zena Proctor MD - 06/09/2023 12:26 PM Zena Proctor MD - 06/09/2023 11:15 AM EST Note Date & Type Note Facility 11-28-2023 Note Patient Education Obstetrics and Gynecology Acute Urinary Retention, Female Acute urinary retention is a condition in which a person is unable to pass urine or can only pass a little urine. This condition can happen suddenly and last for a short time. If left untreated, it can become long-term (chronic) and result in kidney damage or other serious complications. What are the causes? This condition may be caused by: ? Obstruction or narrowing of the tube that drains the bladder (urethra). This may be caused by surgery, problems with nearby organs, or injury to the bladder or urethra. ? Problems with the nerves in the bladder. ? Pelvic organ prolapse. ? Tumors in the area of the pelvis, bladder, or urethra. ? Vaginal childbirth. ? Bladder or urinary tract infection. ? Constipation. ? Certain medicines. What increases the risk? This condition is more likely to develop in women over age 50. Other chronic health conditions can increase the risk of acute urinary retention. These include: ? Diseases such as multiple sclerosis. ? Spinal cord injuries. ? Diabetes. ? Degenerative cognitive conditions, such as delirium or dementia. ? Psychological conditions. A woman may hold her urine due to trauma or because she does not want to use the bathroom. ? History of preexisting urinary retention. ? History of prior pelvic surgery, incontinence surgery, or radical pelvic surgery. What are the signs or symptoms? Symptoms of this condition include: ? Trouble urinating. ? Pain in the lower abdomen. How is this diagnosed? This condition is diagnosed based on a physical exam and your medical history. You may also have other tests, including: ? An ultrasound of the bladder or kidneys or both. ? Blood tests. ? A urine analysis. ? Additional tests may be needed, such as a CT scan, MRI, and kidney or bladder function tests. How is this treated? Treatment for this condition may include: ? Medicines. ? Placing a thin, sterile tube (catheter) into the bladder to drain urine out of the body. This is called an indwelling urinary catheter. After it is inserted, the catheter is held in place with a small balloon that is filled with sterile water. Urine drains from the catheter into a collection bag outside of the body. ? Behavioral therapy. ? Treatment for other conditions. If needed, you may be treated in the hospital for kidney function problems or to manage other complications. Follow these instructions at home: Medicines ? Take lehe-fks-ogmbuca and prescription medicines only as told by your health care provider. Avoid certain medicines, such as decongestants, antihistamines, and some prescription medicines. Do not take any medicine unless your health care provider approves. ? If you were prescribed an antibiotic medicine, take it as told by your health care provider. Do not stop using the antibiotic even if you start to feel better. General instructions ? Do not use any products that contain nicotine or tobacco. These products include cigarettes, chewing tobacco, and vaping devices, such as e-cigarettes. If you need help quitting, ask your health care provider. ? Drink enough fluid to keep your urine pale yellow. ? If you have an indwelling urinary catheter, follow the instructions from your health care provider. ? Monitor any changes in your symptoms. Tell your health care provider about any changes. ? If instructed, monitor your blood pressure at home. Report changes as told by your health care provider. ? Keep all follow-up visits. This is important. Contact a health care provider if: ? You have uncomfortable bladder contractions that you cannot control (spasms). ? You leak urine with the spasms. Get help right away if: ? You have chills or a fever. ? You have blood in your urine. ? You have a catheter and the following happens: ? Your catheter stops draining urine. ? Your catheter falls out. Summary ? Acute urinary retention is a condition in which a person is unable to pass urine or can only pass a little urine. If left untreated, this can result in kidney damage or other serious complications. ? One cause of this condition may be obstruction or narrowing of the tube that drains the bladder (urethra). This may be caused by surgery, problems with nearby organs, or injury to the bladder or urethra. ? Treatment may include medicines and placement of an indwelling urinary catheter. ? Monitor any changes in your symptoms. Tell your health care provider about any changes. This information is not intended to replace advice given to you by your health care provider. Make sure you discuss any questions you have with your health care provider. Document Revised: 01/02/2021 Document Reviewed: 01/02/2021 [employer] Patient Education ? 2022 [employer]It. Urology Urinary Incontinence Urinary incontinence refers to a condition in which a person is unable to control where and (more content not included)... [facility] 10-13-2023 Hospital Discharge instructions Patient Education 10/13/2023 [...] your health care provider. General instructions Take tpsb-pcb-gclutoq and prescription medicines only as told by [...] provider. Document Revised: 12/31/2020 Document Reviewed: 12/31/2020 [employer] Patient Education 2022 [employer]. Follow Up Care 06/30/2023 10:55:11 With:LAITH YI, VIVI Palacios, URL Address: [address] [place] [address] [phone] When: Unknown Comments:6 wks w/ PVR [facility] 06-24-2023 Note Chief Complaint consultation for [...] mg= 1 tab(s), Oral, Daily Vitamin D3, 23227 unit(s), Oral, qWeek Zoloft 25 mg Tab, [...] virus vaccine, inactivated 02/19/2023 Recorded SARS-CoV-2 (COVID-19) [id number] 02/06/2022 Recorded SARS-CoV-2 (COVID-19) mRNA BNT-162b2 vax (more content not included)... [facility] Comment on above: Result Comment: Elec tronically Signed By: REBECCA KILLIAN, Doug Dominique\Date and Time Signed: 06/24/23 14:18 EST 06-09-2023 History of Present illness Narrative Associated Problem(s): Polyneuropathy TSH + fT4. Emphasized good A1c control. Associated Problem(s): Sequelae of cerebral infarction Echo c bubble study. ([place] or [place]). US carotids ([facility]). (Continue ASA.) Images from the original note were not included. Outpatient Progress Note Prev Appt: Visit date not found Chief Complaint Patient presents with Memory Loss Assessment and Plan - Sequelae of cerebral infarction Echo c bubble study. ([place] or [place]). US carotids ([facility]). (Continue ASA.) Polyneuropathy TSH [...] 2018, hemipar R face & hand. -> [facility]. Known DM. Onset Semeiology Imaging US carotids (03/2020, [place]) - < 50% B CT head (12/2019, [place]) - neg Testing Surgery Failed Dx PN [...] mouth in the morning. D3-50 1.25 MG (13097 UT) capsule ferrous sulfate 325 (65 Fe) [...] as of 06/09/2023. documented in this encounter [facility] 05-21-2023 Evaluation note Encounter Date Diagnosis [...] will benefit with SGLT2 inhibitors including Farxiga, Jardiluke Invokana. Will defer this decision to the [...] and no personal patient information was compromised. [facility] Other 12-23-2023 Hospital Discharge instructions Patient Education [...] Ask your health care provider for a zdid-yp-fjpi plan for gradually returning to activities. Ask [...] your friends, family, a trusted colleague, and boom stick worker about your injury, symptoms, and restrictions. Have them watch for any new or worsening problems. General instructions Take iibg-uoy-ytomfln and prescription medicines only as told by [...] provider. Document Revised: 02/24/2020 Document Reviewed: 02/24/2020 [employer] Patient Education 2022 [employer]. Follow Up Care 04/17/2023 20:26:54 With:RICHARD VARGAS Address: [address] [place] [phone] Business (1) When:04/20/2023 Comments:Follow-up with your primary care provider in 3 to 5 days. If symptoms worsen, do not improve, or new symptoms arise please report back to emergency department for further evaluation. [facility]12-22-2023 Evaluation + Plan noteExtracted from: [...] Date:06/30/2023 10:00:00 AM Scheduled Provider:VIVI OZUNA PA-C Location:[facility] Appointment Type:URO Office Visit [facility]10-30-2023 Evaluation note* Encounter Date Diagnosis [...] recent gout flare. Continue monitor without medications. [facility] Other 09-06-2023 Evaluation note* Encounter Date Diagnosis [...] We will check also for paraproteinemia work-up. [place] [employer] Other Evaluation + Plan note Future Appointments Appointment Date:06/30/2023 10:00:00 AM Scheduled Provider:VIVI OZUNA PA-C Location:[facility] Appointment Type:URO Office Visit General Surgery [place] Evaluation + Plan note Future Appointments Appointment Date:11/24/2023 11:00:00 AM Scheduled Provider:VIVI OZUNA PA-C Location:[facility] Appointment Type:URO Office Visit [facility] evaluation + Plan note Future Appointments Appointment Date:01/05/2024 11:00:00 AM Scheduled Provider:AALIYAH Silvestre APRN, [place] [facility] Location:[facility] Appointment Type:URO Office Visit [facility]No [facility] ([place] Other Evaluation note* Diagnosis Sequelae of cerebral infarction- Primary Unspecified late effects of cerebrovascular disease Polyneuropathy Unspecified hereditary and idiopathic peripheral neuropathy documented in this encounter [facility] Diagnosis Onset Date Resolution Status Anemia of renal disease acut e CKD (chronic kidney disease) stage 3, GFR 30-59 ml/min acute Hyperlipidemia acute [id number] acute Hyperuricemia acute Secondary hyperparathyroidism acute Type 2 diabetes mellitus wit h diabetic chronic kidney disease acute [facility] Work Phone: Hismg[facility]j general Narrative - Reported* Type Description Date [...] TONSILLECTOMY AND ADENOIDECTOMY Hospitalization History SEE ABOVE [facility] Other [facility] general Narrative - Reported* Type Description Date [...] TONSILLECTOMY AND ADENOIDECTOMY Hospitalization History SEE ABOVE [facility] Other Hospital course Narrative No data available for this section [facility] No data available for this section General Surgery [place] Progress note No data available for this section [facility] Summary Purpose Family History No Family History Records Found Relationship Condition Age at Onset Recorded Date/T anu father Unknown Heart disease Unknown family member Unknown mother Unknown sister Malignant neoplasm Unknown Diabetes mellitus Unknown Family history of mental disorder Unknown Advance Directives No Advanced Directives Records Found Advance Directive Response Recorded Date/ Time Advance Directives No November 17 9:36am Chief Complaint and Reason for Visit Chief Complaint Renal F/U Reason for Visit Anemia of renal dise ase CKD (chronic kidney disease) stage 3, GFR 30-59 ml/min Hyperlipidemia [id number] Hyperuricemia Secondary hyperparathyroidism Type 2 diabetes mellitus with diabetic chronic kidney disease Additional Source Comments INFORMATION SOURCE (unrecogn ized section and content) DATE CREATED AUTHOR 02/03/2022 Kamiah DATE CREATED AUTHOR AUTHOR'S ORGANIZ ATION 08/22/2022 [facility] DATE CREATED AUTHOR AUTHOR'S ORGANIZ ATION 09/10/2023 [facility] EPIC DATE CREATED AUTHOR AUTHOR'S ORGANIZ ATION 11/30/2023 [facility] DATE CREATED AUTHOR AUTHOR'S ORGANIZ ATION 12/13/2023 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 Start Date End Date Eduardo Atkins MD [address] [facility] [address] [place] [address] PCP - General Family Medicine 06/09/23 Team Status: Active Member Role Status Dates Pro Jean , [facility]- Primary Care Provider Active Team Status: Active Member Role Status Dates Pro Jean , [facility] Primary Care Provider Active Start: November 16, 2023 Nicolás Perry MD Attending Provider Active Start : November 16, 2023 Team Status: Active Member Role Status Dates Pro Jean , [facility] Primary Care Provider Active Start: November 17, 2023 Nicolás Perry MD Attending Provider Active Start : November 17, 2023 Team Status: Inactive Member Role Status Dates Pro Jean , [facility] Primary Care Provider Active Start: December 10, 2023 End: December 10, 2023 Nicolás Perry MD Attending Provider Active Start : December 10, 2023 End: December 10, 2023 Goals (unrecognized section and content) Goals may be documented in a n alternate section FOR RECORDS PERTAINING TO PATIENTS WHO ARE [...] BE BASED ON THE PRIMARY CLINICAL RECORDS. [facility] [employer] [facility]. provides no warranty or guarantee of the accuracy or completeness of information in this document.
[2024-01-01 10:18] LABS: Basophils Percent Auto 0.4 % (0.2-2.0); Eosinophils Absolute Auto 0.2 10^3/uL (0.0-0.7); Eosinophils Percent Auto 2.8 % (0.9-7.0); Hematocrit 32.1 % (36.0-48.0); Hemoglobin 10.4 g/dL (12.0-16.0); Immature Granulocytes Abs Auto 0.04 10^3/uL (0.00-0.03); Immature Granulocytes Pct Auto 0.5 % (0.0-0.5); Lymphocytes Absolute Auto 2.6 10^3/uL (1.2-3.8); Lymphocytes Percent Auto 30.7 % (20.5-60.0); Mean Corpuscular HGB Conc 32.4 g/dL (29.9-35.2); Mean Corpuscular Hemoglobin 29.2 pg (26.7-34.0); Mean Corpuscular Volume 90.2 fL (81.0-99.0); Mean Platelet Volume 10.8 fL (9.5-13.5); Monocytes Absolute Auto 0.8 10^3/uL (0.3-0.8); Monocytes Percent Auto 9.2 % (1.7-12.0); Neutrophils Absolute Auto 4.7 10^3/uL (1.4-6.5); Neutrophils Percent Auto 56.4 % (43.0-75.0); Platelet Count 228 10^3/uL (150-450); Red Blood Count 3.56 10^6/uL (4.20-5.40); Red Cell Distribution Width 13.1 % (11.0-15.0); White Blood Count 8.3 10^3/uL (4.0-11.0)
[2024-01-01 11:05] LABS: Estimated Average Glucose 146 mg/dL; Glycohemoglobin A1C 6.7 % (4.5-6.2)
[2024-01-01 11:21] LABS: Alanine Aminotransferase 16 U/L (14-59); Albumin Globulin Ratio 0.8; Albumin Level 3.2 g/dL (3.4-5.0); Alkaline Phosphatase 59 U/L (46-116); Anion Gap 9.5; Aspartate Amino Transferase 17 U/L (15-37); BUN Creatinine Ratio 23.3; Bilirubin Total 0.4 mg/dL (0.2-1.0); Calcium 9.1 mg/dL (8.5-10.1); Carbon Dioxide 32.1 mmol/L (21.0-32.0); Chloride 99 mmol/L (98-107); Chol HDL Ratio 2.1; Cholesterol 116 mg/dL (<=200); Estimated GFR (African America 49 (>=60); Estimated GFR (Non-African Ame 40 (>=60); Globulin 3.8 g/dL; Glucose 106 mg/dL (74-106); HDL Cholesterol 54 mg/dL (40-60); Potassium 4.6 mmol/L (3.5-5.1); Sodium 136 mmol/L (136-145); Triglycerides 95 mg/dL (<=150)
== END 2024-01-01 08:38 | disposition home or self-care (01) ==
LOC: LAB 08:37
PROVIDERS: PCP Nurse Practitioner Primary Care; Visit Provider Nurse Practitioner
DX: I10 Essential (primary) hypertension (principal); E11.9 Type 2 diabetes mellitus without complications
CPT/HCPCS: 36415; 80053; 80061; 83036; 85025

== ENCOUNTER 2024-01-22 07:38 | Outpatient (REF) | payer MEDICARE, MEDICAID, SELFPAY ==
--- OUTSIDE RECORDS SUMMARY | 2024-01-22 07:44 | XMS_ITS | CCD ---
Author Organization [facility] Inform ion Partnership [facility] Care Team Providers Care Retail Banker Name Role Phone SHAMMO, PRO Primary Care Unavailable SHAMMO, POR Admitting Unavailable SHAMMO, PRO Attending Unavailable YADY, [...] Unavailable SHAMMO, PRO Attending Unavailable SHAMMO, PRO Primary Care Unavailable SHAMMO, PRO Admitting Unavailable SHAMMO, PRO Attending Unavailable SHAMMO, PRO Consulting Unavailable Nicolás Perry Unavailable RICHARD VARGAS Primary Care Physician Unavailable Primary Care Provider UnavailEduardo Hollis MD Primary Care Provider SHAMMO, PRO GEE Primary Care Physician DG PROCTOR Attending Unavailable DG PROCTOR Attending Unavailable SHEILA RAWLS Attending Unavailable KHORSAND SAM, LINUS Referring Unavailnicky e DANIEL VARGAS, LINUS Primary Care UnavailNancy Rivera Attending Unavailable Doug FERNANDEZ Attending Unavailable SHAMMO, PRO Primary Care Unavailable FRANDY ROLLINS Referring Unavailable SHAMMO, PRO Primary Care Unavailable VIVI OZUNA Attending Unavailable MD NICOLÁS PERRY Referring Unavailable SHAMMO, PRO Primary Care Unavailable Jo Ann Silvestre Attending Unavailable SHAMMO, PRO Primary Care Unavailable Jo Ann Silvestre Attending Unavailable SAMANTHAMONISHA PRO Primary Care Unavailable VIVI OZUNA Attending Unavailable SHEILA RAWLS Attending Unavailable SHEILA RAWLS Referring Unavailable JERONIMO, ELLISTON Primary Care Unavailable GUERITA, GABINO Admitting Unavailable JERONIMO, ELLISTON Primary Care Unavailable MARTHA BARRAGAN Attending Unavailable SHEILA CARREON Consulting Unavailable [facility] ONLY[facility] Consulting Unavailable MARTHA BARRAGAN Attending Unavailable MARTHA BARRAGAN Referring Unavailable JERONIMO, ELLISTON Primary Care Unavailable MITZY BRUNER Referring Unavailable JERONIMO, ELLISTON Primary Care Unavailable ROSANGELA DOUGHERTY Referring Unavailab le JERONIMO, ELLISTON Primary Care Unavailable MIKE PLASENCIA Attending Unavailable MIKE PLASENCIA Referring Unavailable JERONIMO, ELLISTON Primary Care Unavailable GUERITA, GABINO Referring Unavailable JERONIMO, ELLISTON Primary Care Unavailable Medications Current Medications Medication Drug Class(es) Dates Sig (Normalized) Sig (Original) 0.5 ML tirzepatide 10 MG/ML Auto-Injector [Mounjaro] (6 sources) Start: 06-10-2023 inject 5 mg by subcutaneous injection every week Mounjaro 5 mg/0.5 mL subcutaneous solution 5 mg, SubCutaneous, qWeek, Refills(s) 0 Start Date: 06/10/23 Status: Ordered Mounjaro 5 MG/0. 5ML as directed Subcutaneous ONCE A WEEK Active acetaminophen 325 mg oral tablet (9 sources) Start: 06-25-2023 take 325 mg by mouth every four hours Acetaminophen Active 325 MG PO Every 4 hours December 10, 2023 12:00am Start: 07-10-2020 acetaminophen Refills(s) 0 Start Date: [...] (Eqv-Proventil HFA ) 90 mcg/inh inhalation aerosol (3 sources) Start: 06-25-2023 alendronic acid 70 mg oral tablet (12 sources) Bisphosphonate Start: 07-10-2020 take 1 tablet by mouth every week take 1 tablet by mouth once fernandez y Alendronate Sodium 70 MG 1 tablet 30 minutes before the first food, beverage or medicine of the day with plain water Orally Active ascorbic acid 250 mg oral tablet (9 sources) Vitamin C Start: 12-10-2023 take 250 mg by mouth twice daily Ascorbic Acid (Vitamin C) Active 250 MG PO Twice daily December 10, 2023 12:00am Start: 06-25-2023 ascorbic acid 250 mg oral tablet, chewable 60 tab(s), 0 Refill(s), Refills(s) 0 Start Date: 06/25/23 Status: Ordered Start: 05-22-2023 ascorbic acid (Vitamin C) 250 MG chewable tablet aspirin 81 mg delayed release oral tablet (12 sources) Platelet Aggregation Inhibitor, Nonsteroidal Anti-inflammatory Drug Start: 07-10-2020 take 81 mg by mouth once daily Aspirin Active 81 MG PO Daily December 10, 2023 12:00am brexpiprazole 0.5 mg oral tablet (7 sources) Atypical Antipsychotic Start: 05-28-2023 take 1 tablet by mouth once daily Brexpiprazole (Rexulti) 0.5 mg tablet Active 0.5 MG PO Daily December 10, 2023 12:00am cholecalciferol 1.25 mg oral capsule (2 sources) Vitamin D Start: 05-28-2023 D3-50 1.25 MG (06845 UT) capsule ergocalciferol 1.25 mg oral capsule (5 sources) Provitamin D2 Compound Start: 12-10-2023 take 05102 [IU] by mouth every week Ergocalciferol (Vitamin D2) Active 38613 UNIT PO every week December 10, 2023 12:00am take 1 capsule by mouth every we ek Vitamin D (Ergocalciferol) 1.25 MG (39579 UT) 1 capsule Orally ONCE A WEEK Active ferrous sulfate 325 mg oral tablet (12 sources) Start: 07-10-2020 take 325 mg by mouth once daily Ferrous Sulfate Active 325 MG PO Daily December 10, 2023 12:00am Start: 07-10-2020 ferrous sulfat e Oral, Refills(s) 0 Start Date: 07/10/20 Status: Ordered take 1 tablet by lei th once daily Ferrous Sulfate 325 (65 Fe) MG 1 tablet Orally ONCE A DAY Active furosemide 20 mg oral tablet (12 sources) Loop Diuretic Start: 07-10-2020 take 20 mg by mouth once daily Furosemide Active 20 MG PO Daily December 10, 2023 12:00am hydroCHLOROthiazide 12.5 mg / lisinopril 20 mg oral tablet (11 sources) Thiazide Diuretic, Angiotensin Converting Enzyme Inhibitor Start: 06-10-2023 take 1 tablet by mouth once daily Lisinopril-Hydr ochlorothiazide Active 1 TAB PO Daily December 10, 2023 12:00am Start: 06-04-2023 lisinopril-hyd roCHLOROthiazide 20-12.5 MG tablet [...] Active magnesium oxide 400 mg oral tablet (7 sources) Start: 05-28-2023 take 400 mg by mouth once daily Magnesium Oxide Active 400 MG PO Daily December 10, 2023 12:00am metFORMIN hydrochloride 500 mg oral tablet (1 [...] pen-injector ondansetron 4 mg disintegrating oral tablet (9 sources) Serotonin-3 Receptor Antagonist Start: 06-10-2023 take 4 mg by mouth every four hours Ondansetron Active 4 MG PO Every 4 hours December 10, 2023 12:00am take 1 tablet by lei th every four hours as needed Ondansetron 4 MG 1 tablet on the tongue and allow to dissolve Orally EVERY 4 HOURS NEEDED Active 24 hr oxybutynin chloride 10 mg extended release oral tablet (3 sources) Cholinergic Muscarinic Antagonist Start: 10-13-2023 take 1 tablet by mouth once daily oxybutynin 10 mg ER Tab 10 mg = 1 tab(s), Oral, Daily, # 30 tab(s), Refills(s) 11, Pharmacy: [id number], 152.2, cm, 10/13/23 10:01:00 EDT, Height/Length Dosing, 80.6, kg, 10/13/23 10:01:00 EDT, Weight Dosing Start Date: 10/13/23 Status: Ordered pantoprazole 20 mg delayed release oral tablet (12 sources) Proton Pump Inhibitor Start: 06-10-2023 take 20 mg by mouth once daily Pantoprazole Active 20 MG PO Daily December 10, 2023 12:00am Start: 07-10-2020 take 1 mg by mouth once daily pantoprazole 40 mg Oral EC Tab mg tab(s), Oral, Daily, Refills(s) 0 Start Date: 07/10/20 Status: Ordered potassium chloride 20 meq extended release oral tablet (11 sources) Start: 06-10-2023 take 20 mEq by mouth once daily Potassium Chloride Active 20 MEQ PO Daily December 10, 2023 12:00am Start: 06-02-2023 potassium chlo ride CR (Klor-Con [...] Ordered rosuvastatin calcium 5 mg oral tablet (11 sources) HMG-CoA Reductase Inhibitor Start: 06-10-2023 take 1 tablet by mouth once daily sertraline 25 mg oral tablet (7 sources) Serotonin Reuptake Inhibitor Start: 06-02-2023 take 25 mg by mouth once daily Sertraline Active 25 MG PO Daily December 10, 2023 12:00am SITagliptin 50 mg oral tablet (1 source) Dipeptidyl Peptidase 4 Inhibitor Start: 07-10-2020 take 1 tablet by mouth once daily Januvia 50 mg Tab 50 mg = 1 tab(s), Oral, Daily, # 30 tab(s), Refills(s) 0 Start Date: 07/10/20 Status: Ordered Vitamin B-12 1000 mcg oral tablet (3 sources) Start: 06-25-2023 Vitamin B-12 1000 mcg oral [...] Orally TWICE A DAY Active Vitamin D3 (5 sources) Start: 07-10-2020 take 46568 [IU] by mouth every week Vitamin D3 50,000 unit(s), Oral, qWeek, Refills(s) 0 Start Date: 07/10/20 Status: Ordered Start: 07-10-2020 Vitamin D3 Ref ills(s) 0 Start Date: 07/10/20 Status: Ordered Problems Active Problems Problem Classification Problem Date Documented Date Episodic/Chronic Acute cerebrovascular disease (5 sources) Cerebrovascular accident 07-10-2020 Chronic Anxiety disorders (4 sources) Anxiety 06-10-2023 Chronic Asthma (5 sources) Asthma 07-10-2020 Chronic Chronic kidney disease (20 sources) Chronic kidney disease stage 4; Translations: [Chronic kidney disease, stage 4 (severe)] Onset: 4 Chronic Congestive heart failure; nonhypertensive (6 sources) Chronic combined systolic (congestive) and diastolic (congestive) heart failure; Translations: [Heart failure] Onset: 3 06-10-2023 Chronic Deficiency and other anemia (5 sources) Anemia of renal disease; Translations: [Anemia in chronic kidney disease] 12-09-2023 Chronic Deficiency and other anemia (3 sources) Anemia in chronic kidney disease Chronic Deficiency and other anemia (5 sources) Anemia 07-10-2020 Episodic Diabetes mellitus with complications (9 sources) Disorder of kidney due to diabetes mellitus; Translations: [Type 2 diabetes mellitus with diabetic chronic kidney disease] Chronic Diabetes mellitus without complication (14 sources) Type 2 diabetes mellitus without complications; Translations: [Diabetes mellitus] Onset: 3 Chronic Disorders of lipid metabolism (7 sources) Hyperlipidemia, unspecified; Translations: [Hyperlipidemia] Onset: 3 06-10-2023 Chronic Diverticulosis and diverticulitis (4 sources) Diverticular disease 06-10-2023 Chronic E Codes: Fall (1 source) Fall; Translations: [Unspecified fall, initial encounter] Onset: 3 Episodic Esophageal disorders (4 sources) Gastroesophageal reflux disease 06-10-2023 Chronic Essential hypertension (18 sources) Essential (primary) hypertension; Translations: [Hypertensive disorder] Onset: 3 Chronic Genitourinary symptoms and ill-defined conditions (11 sources) Urinary incontinence; Translations: [Unspecified urinary incontinence] Onset: 4 Chronic Genitourinary symptoms and ill-defined conditions (6 sources) Retention of urine; Translations: [Retention of urine, unspecified] Onset: 4 Episodic Headache; including migraine (4 sources) Migraine 06-10-2023 Chronic Headache; including migraine (5 sources) Headache 07-10-2020 Episodic Heart valve disorders (2 sources) Nonrheumatic mitral (valve) insufficiency; Translations: [Nonrheumatic mitral (valve) insufficiency] Onset: 4 Chronic Heart valve disorders (5 sources) Heart murmur duration, short 07-10-2020 Episodic Hypertension with complications and secondary hypertension (14 sources) Hypertensive heart disease with heart failure; Translations: [Chronic kidney disease due to hypertension] Onset: 3 Chronic Late effects of cerebrovascular disease (4 sources) Sequelae of cerebral infarction; Translations: [Unspecified sequelae of cerebral infarction] Onset: 4 06-09-2023 Chronic Miscellaneous mental health disorders (5 sources) Mental disorder 07-10-2020 Chronic Mood disorders (4 sources) Depressive disorder 06-10-2023 Chronic Mycoses (1 source) Candidiasis of vagina 11-28-2023 Episodic Osteoarthritis (5 sources) Arthritis 07-10-2020 Chronic Osteoporosis (4 sources) Osteoporosis 06-10-2023 Chronic Other aftercare (1 source) terminal carman (current) use of oral hypoglycemic drugs; Translations: [KNOCKOUT MAN USE ORAL HYPOGLYCEMIC DX] Onset: 3 Episodic Other aftercare (1 source) Other skilled nursing (current) drug therapy; Translations: [OTH CARE HOME CURRENT DRUG THERAPY] Onset: 3 Episodic Other circulatory disease (4 sources) Disorder of aorta 06-10-2023 Chronic Other circulatory disease (1 source) Personal history of transient ischemic attack (TIA), and cerebral infarction without residual deficits; Translations: [Personal history of transient ischemic attack (TIA), and cerebral infarction without residual deficits] Onset: 4 Episodic Other diseases of kidney and ureters (9 sources) Secondary hyperparathyroidism; Translations: [Secondary hyperparathyroidism of renal origin] 06-10-2023 Chronic Other diseases of kidney and ureters (4 sources) Secondary hyperparathyroidism of renal origin; Translations: [Secondary hyperparathyroidism (of renal origin)] Chronic Other diseases of kidney and ureters (4 sources) Anemia of renal disease 06-10-2023 Episodic Other diseases of kidney and ureters (3 sources) Acquired renal cyst without neoplastic change; Translations: [Cyst of kidney, acquired] Onset: 4 Episodic Other diseases of kidney and ureters (6 sources) Hydronephrosis; Translations: [Unspecified hydronephrosis] Onset: 4 Episodic Other diseases of kidney and ureters (3 sources) Cyst of kidney 06-30-2023 Episodic Other diseases of veins and lymphatics (4 sources) Lymphedema 06-10-2023 Chronic Other injuries and conditions due to external causes (1 source) Injury of head; Translations: [Unspecified injury of head, initial encounter] Onset: 3 Episodic Other lower respiratory disease (4 sources) Hypoxemia; Translations: [HYPOXEMIA] Onset: 3 Episodic Other lower respiratory disease (1 source) Shortness of breath; Translations: [Shortness of breath] Onset: 4 Episodic Other lower respiratory disease (1 source) Shortness of breath Onset: 4 Episodic Other lower respiratory disease (1 source) Dyspnea Onset: 4 Episodic Other nervous system disorders (4 sources) Polyneuropathy; Translations: [Polyneuropathy, unspecified] Onset: 4 06-09-2023 Chronic Other nutritional; endocrine; and metabolic disorders (4 sources) Body mass index 30+ - obesity 06-24-2023 Chronic Other nutritional; endocrine; and metabolic disorders (4 sources) Obesity 06-24-2023 Chronic Other nutritional; endocrine; [...] unspecified] Onset: 4 Chronic Residual codes; unclassified (5 sources) Edema of lower extremity 07-10-2020 Episodi c Schizophrenia and other psychotic disorders (6 sources) Schizoaffective disorder, bipolar type; Translations: [Schizoaffective disorder] Onset: 2 Chronic Thyroid disorders (10 sources) Hypothyroidism, unspecified; Translations: [Hypothyroidism] Onset: 3 07-10-2020 Chronic Transient cerebral ischemia (4 sources) Transient cerebral ischemia 06-10-2023 Chronic Unclassified (4 sources) Patient encounter status 06-24-2023 Unclassified (1 source) New Patient Onset: 4 Unclassified (1 source) Pre-op Exam Onset: 4 Past or Other Problems Problem Classification Problem Date Documented Da te Episodic/Chronic Chronic kidney disease (1 source) Chronic kidney disease Results Test Name Value Interpretation Reference Range Facility 36on 01-18-2024 36 Seda (caregiver ) called [facility] about an appt for the patient. Her call back number is [phone]. Normal [facility] 36 Enroute Controller EBONI for robert berman to call back to schedule 6-week follow up appt with repeat CT chest. Normal [facility] COMPLETE BLOOD COUNTon 01-15 Erythrocyte distribution width (RBC) [Ratio] 13.8 % Normal 11.5-15.0 [facility] Comment on above: Performed By: #### C BCA, BMP, 03773-4, 52518-6, 84683-9 #### [facility] ([id number]) [address] [place] [address] Hematocrit (Bld) [Volume fraction] 32.3 % Low 35-47 [facility] Comment on above: Performed By: #### C BCA, BMP, 11404-6, 76659-4, 24920-1 #### [facility] ([id number]) [address], [address] [place] [address] Hemoglobin (Bld) [Mass/Vol] 10.8 g/dL Low 11.7-15.5 [facility] Comment on above: Performed By: #### C BCA, BMP, 81440-4, 75912-2, 34717-9 #### [facility] ([id number]) [address], [facility] [address] [place] [address] MCH (RBC) [Entitic mass] 29.7 pg Normal 27-34 [facility] Comment on above: Performed By: #### C BCA, BMP, 36705-9, 74940-6, 99317-1 #### [facility] ([id number]) [address], [address] [place] [address] MCHC (RBC) [Mass/Vol] 33.5 g/dL Normal 32-36 [facility] Comment on above: Performed By: #### C BCA, BMP, 49753-7, 81805-9, 96402-7 #### [facility] ([id number]) [address], [facility] [address] [place] [address] MCV (RBC) [Entitic vol] 89 fL Normal 80-100 [facility] Comment on above: Performed By: #### Maicol BCA, BMP, 69056-7, 13860-8, 28368-5 #### [facility] ([id number]) [address], [address] [place] [address] Platelet mean volume (Bld) [Entitic vol] 9.6 fL Normal 7-12 [facility] Comment on above: Performed By: #### Maicol BCA, BMP, 89293-1, 35153-3, 08071-4 #### [facility] ([id number]) [address], [address] [place] [address] Platelets (Bld) [#/Vol] 214 10*3/uL Normal 150-450 [facility] Comment on above: Performed By: #### C BCA, BMP, 73313-2, 53803-3, 85103-7 #### [facility] ([id number]) [address], [address] [place] [address] RBC COUNT 3.64 X10E12/L Low 3.80-5.20 [facility] Comment on above: Performed By: #### C BCA, BMP, 05434-1, 11950-2, 24501-6 #### [facility] ([id number]) [address], [address] [place] [address] WBC (Bld) [#/Vol] 6.2 10*3/uL Normal 4.0-11.0 [facility] Comment on above: Performed By: #### C BCA, BMP, 79955-5, 18189-6, 30510-5 #### [facility] ([id number]) [address], [address] [place] [address] COMPREHENSIVE METABOLIC PANE Jerome 01-16-2024 Albumin [Mass/Vol] 3.8 g/dL Normal 3.2-5.3 [facility] Comment on above: Performed By: #### C BCA, BMP, 85650-4, 57416-6, 03351-3 #### [facility] ([id number]) [address], [address] [place] [address] ALP [Catalytic activity/Vol] 50 U/L Normal 39-130 [facility] Comment on above: Performed By: #### C BCA, BMP, 07744-9, 20610-0, 77147-8 #### [facility] ([id number]) [address], [address] [place] [address] ALT [Catalytic activity/Vol] 9 U/L Normal 0-31 [facility] Comment on above: Performed By: #### C BCA, BMP, 11792-1, 18614-5, 11370-1 #### [facility] ([id number]) [address] [place] [address] Anion gap [Moles/Vol] 9 mmol/L Normal 5-15 [facility] Comment on above: Performed By: #### C BCA, BMP, 62888-0, 61390-8, 28514-4 #### [facility] ([id number]) [address], [address] [place] [address] AST [Catalytic activity/Vol] 14 U/L Normal 0-41 [facility] Comment on above: Performed By: #### C BCA, BMP, 08226-5, 90051-5, 94000-0 #### [facility] ([id number]) [address], [address] [place] [address] Bilirubin [Mass/Vol] 0.6 mg/dL Normal 0.3-1.2 [facility] Comment on above: Performed By: #### C BCA, BMP, 47214-4, 84851-0, 77465-1 #### [facility] ([id number]) [address], [address] [place] [address] Calcium [Mass/Vol] 9.6 mg/dL Normal 8.5-10.5 [facility] Comment on above: Performed By: #### C BCA, BMP, 27803-8, 98956-3, 01701-1 #### [facility] ([id number]) [address], [address] [place] [address] Chloride [Moles/Vol] 90 mmol/L Low 98-109 [facility] Comment on above: Performed By: #### C BCA, BMP, 11605-5, 69623-3, 97926-9 #### [facility] ([id number]) [address], [address] [place] [address] CO2 [Moles/Vol] 35 mmol/L High 22-32 [facility] Comment on above: Performed By: #### C BCA, BMP, 22633-3, 57577-1, 56139-4 #### [facility] ([id number]) [address], [address] [place] [address] Creatinine [Mass/Vol] 1.55 mg/dL High 0.40-1.00 [facility] Comment on above: Result Comment: METH OD TRACEABLE TO IDMS STANDARD Performed By: #### C BCA, BMP, 25608-9, 17706-4, 90412-7 #### [facility] ([id number]) [address], [address] [place] [address] GFR/1.73 sq M.predicted among non-blacks MDRD (S/P/Bld) [Vol rate/Area] 35 mL/min/{1.73_m2} Low >59 [facility] Comment on above: Result Comment: Reported eGFR is based on the CKD-EPI 2020 equation that does not use a race coefficient. Performed By: #### C BCA, BMP, 62021-2, 79048-8, 34071-9 #### [facility] ([id number]) [address], [address] [place] [address] Glucose [Mass/Vol] 122 mg/dL High 65-99 [facility] Comment on above: Performed By: #### C BCA, BMP, 61837-8, 58265-8, 74591-9 #### [facility] ([id number]) [address], [address] [place] [address] Potassium [Moles/Vol] 4.5 mmol/L Normal 3.5-5.0 [facility] Comment on above: Performed By: #### C BCA, BMP, 55911-2, 66854-8, 16343-4 #### [facility] ([id number]) [address], [address] [place] [address] Protein [Mass/Vol] 7.2 g/dL Normal 6.0-8.0 [facility] Comment on above: Performed By: #### C BCA, BMP, 43476-5, 43701-7, 07584-4 #### [facility] ([id number]) [address], [address] [place] [address] Sodium [Moles/Vol] 134 mmol/L Normal 134-146 [facility] Comment on above: Performed By: #### C BCA, BMP, 08196-0, 85035-2, 73050-8 #### [facility] ([id number]) [address], [address] [place] [address] Urea nitrogen [Mass/Vol] 52 mg/dL High 5-27 [facility] Comment on above: Performed By: #### C BCA, BMP, 09749-7, 10310-1, 03953-0 #### [facility] ([id number]) [address], [address] [place] [address] Glucose Glucometer (BldC) [M ass/Vol]on 01-16-2024 Glucose [Mass/Vol] 147 mg/dL High 65-99 [facility] COMPLETE BLOOD COUNTon 01-14 Erythrocyte distribution width (RBC) [Ratio] 14.1 % Normal 11.5-15.0 [facility] Comment on above: Performed By: #### C BCA, BMP, 00514-9, 90980-9, 21733-8 #### [facility] ([id number]) [address], [address] [place] [address] Hematocrit (Bld) [Volume fraction] 32.5 % Low 35-47 [facility] Comment on above: Performed By: #### C BCA, BMP, 76230-7, 45107-6, 46731-3 #### [facility] ([id number]) [address], [address] [place] [address] Hemoglobin (Bld) [Mass/Vol] 11.2 g/dL Low 11.7-15.5 [facility] Comment on above: Performed By: #### C BCA, BMP, 36469-7, 53121-4, 87168-4 #### [facility] ([id number]) [address], [address] [place] [address] MCH (RBC) [Entitic mass] 30.3 pg Normal 27-34 [facility] Comment on above: Performed By: #### C BCA, BMP, 98605-3, 16807-1, 86193-2 #### [facility] ([id number]) [address], [address] [place] [address] MCHC (RBC) [Mass/Vol] 34.5 g/dL Normal 32-36 [facility] Comment on above: Performed By: #### C BCA, BMP, 09048-2, 46393-3, 86018-1 #### [facility] ([id number]) [address], [address] [place] [address] MCV (RBC) [Entitic vol] 88 fL Normal 80-100 [facility] Comment on above: Performed By: #### C BCA, BMP, 76229-5, 33274-5, 99428-2 #### [facility] ([id number]) [address], [address] [place] [address] Platelet mean volume (Bld) [Entitic vol] 9.3 fL Normal 7-12 [facility] Comment on above: Performed By: #### C BCA, BMP, 09630-7, 23067-0, 10138-4 #### [facility] ([id number]) [address], [address] [place] [address] Platelets (Bld) [#/Vol] 238 10*3/uL Normal 150-450 [facility] Comment on above: Performed By: #### C BCA, BMP, 43195-4, 65932-7, 10427-0 #### [facility] ([id number]) [address], [address] [place] [address] RBC COUNT 3.70 X10E12/L Low 3.80-5.20 [facility] Comment on above: Performed By: #### C BCA, BMP, 65868-1, 83951-6, 72255-0 #### [facility] ([id number]) [address], [address] [place] [address] WBC (Bld) [#/Vol] 6.6 10*3/uL Normal 4.0-11.0 [facility] Comment on above: Performed By: #### C BCA, BMP, 68654-3, 19564-3, 93233-5 #### [facility] ([id number]) [address] [address] [place] [address] COMPREHENSIVE METABOLIC PANE Jerome 01-15-2024 Albumin [Mass/Vol] 3.7 g/dL Normal 3.2-5.3 [facility] Comment on above: Performed By: #### C BCA, BMP, 87811-1, 79507-4, 75119-6 #### [facility] ([id number]) [address] [place] [address] ALP [Catalytic activity/Vol] 50 U/L Normal 39-130 [facility] Comment on above: Performed By: #### C BCA, BMP, 34295-8, 53861-7, 64182-5 #### [facility] ([id number]) [address] [place] [address] ALT [Catalytic activity/Vol] 7 U/L Normal 0-31 [facility] Comment on above: Performed By: #### C BCA, BMP, 43183-9, 27614-7, 85431-7 #### [facility] ([id number]) [address] [place] [address] Anion gap [Moles/Vol] 9 mmol/L Normal 5-15 [facility] Comment on above: Performed By: #### C BCA, BMP, 98101-1, 04149-0, 35882-7 #### [facility] ([id number]) [address], [address] [place] [address] AST [Catalytic activity/Vol] 13 U/L Normal 0-41 [facility] Comment on above: Performed By: #### C BCA, BMP, 80762-6, 62498-2, 93609-9 #### [facility] ([id number]) [address] [place] [address] Bilirubin [Mass/Vol] 0.5 mg/dL Normal 0.3-1.2 [facility] Comment on above: Performed By: #### C BCA, BMP, 83772-8, 75205-3, 37892-9 #### [facility] ([id number]) [address] [place] [address] Calcium [Mass/Vol] 9.4 mg/dL Normal 8.5-10.5 [facility] Comment on above: Performed By: #### C BCA, BMP, 17559-5, 66811-4, 50489-3 #### [facility] ([id number]) [address] [place] [address] Chloride [Moles/Vol] 91 mmol/L Low 98-109 [facility] Comment on above: Performed By: #### C BCA, BMP, 66666-4, 53266-6, 69749-7 #### [facility] ([id number]) [address] [place] [address] CO2 [Moles/Vol] 35 mmol/L High 22-32 [facility] Comment on above: Performed By: #### C BCA, BMP, 78301-1, 46842-0, 46181-4 #### [facility] ([id number]) [address] [place] [address] Creatinine [Mass/Vol] 1.63 mg/dL High 0.40-1.00 [facility] Comment on above: Result Comment: METH OD TRACEABLE TO IDMS STANDARD Performed By: #### C BCA, BMP, 83792-0, 93147-3, 60865-5 #### [facility] ([id number]) [address] [place] [address] GFR/1.73 sq M.predicted among non-blacks MDRD (S/P/Bld) [Vol rate/Area] 33 mL/min/{1.73_m2} Low >59 [facility] Comment on above: Result Comment: Reported eGFR is based on the CKD-EPI 2020 equation that does not use a race coefficient. Performed By: #### C BCA, BMP, 30726-2, 25473-9, 72254-1 #### [facility] ([id number]) [address] [place] [address] Glucose [Mass/Vol] 129 mg/dL High 65-99 [facility] Comment on above: Performed By: #### C BCA, BMP, 08101-6, 75604-2, 62464-3 #### [facility] ([id number]) [address], [address] [place] [address] Potassium [Moles/Vol] 4.4 mmol/L Normal 3.5-5.0 [facility] Comment on above: Performed By: #### C BCA, BMP, 97497-0, 30912-4, 97174-8 #### [facility] ([id number]) [address] [place] [address] Protein [Mass/Vol] 6.9 g/dL Normal 6.0-8.0 [facility] Comment on above: Performed By: #### C BCA, BMP, 32573-0, 79786-1, 14977-0 #### [facility] ([id number]) [address] [place] [address] Sodium [Moles/Vol] 135 mmol/L Normal 134-146 [facility] Comment on above: Performed By: #### C BCA, BMP, 18144-8, 54219-2, 88835-3 #### [facility] ([id number]) [address] [place] [address] Urea nitrogen [Mass/Vol] 57 mg/dL High 5-27 [facility] Comment on above: Performed By: #### C BCA, BMP, 06690-4, 65452-6, 34692-3 #### [facility] ([id number]) [address] [place] [address] Glucose Glucometer (BldC) [M ass/Vol]on 01-15-2024 Glucose [Mass/Vol] 140 mg/dL High 65-99 [facility] Glucose [Mass/Vol] 147 mg/dL High 65-99 [facility] Glucose [Mass/Vol] 183 mg/dL High 65-99 [facility] Glucose [Mass/Vol] 152 mg/dL High 65-99 [facility] COMPLETE BLOOD COUNTon 01-13 Erythrocyte distribution width (RBC) [Ratio] 14.1 % Normal 11.5-15.0 [facility] Comment on above: Performed By: #### C BCA, BMP, 49805-2, 41112-1, 04323-9 #### [facility] ([id number]) [address], [address] [place] [address] Hematocrit (Bld) [Volume fraction] 32.1 % Low 35-47 [facility] Comment on above: Performed By: #### C BCA, BMP, 55363-4, 52454-6, 10413-0 #### [facility] ([id number]) [address], [address] [place] [address] Hemoglobin (Bld) [Mass/Vol] 10.5 g/dL Low 11.7-15.5 [facility] Comment on above: Performed By: #### C BCA, BMP, 32427-7, 89980-7, 53941-2 #### [facility] ([id number]) [address], [address] [place] [address] MCH (RBC) [Entitic mass] 29.2 pg Normal 27-34 [facility] Comment on above: Performed By: #### C BCA, BMP, 19784-1, 69333-6, 28363-0 #### [facility] ([id number]) [address] [place] [address] MCHC (RBC) [Mass/Vol] 32.9 g/dL Normal 32-36 [facility] Comment on above: Performed By: #### C BCA, BMP, 32041-5, 48692-2, 98894-6 #### [facility] ([id number]) [address], [address] [place] [address] MCV (RBC) [Entitic vol] 89 fL Normal 80-100 [facility] Comment on above: Performed By: #### Maicol BCA, BMP, 31641-6, 94837-5, 76030-3 #### [facility] ([id number]) [address] [place] [address] Platelet mean volume (Bld) [Entitic vol] 9.3 fL Normal 7-12 [facility] Comment on above: Performed By: #### C BCA, BMP, 58345-5, 61288-0, 22431-5 #### [facility] ([id number]) [address] [place] [address] Platelets (Bld) [#/Vol] 223 10*3/uL Normal 150-450 [facility] Comment on above: Performed By: #### C BCA, BMP, 63439-2, 16386-4, 75487-9 #### [facility] ([id number]) [address] [place] [address] RBC COUNT 3.62 X10E12/L Low 3.80-5.20 [facility] Comment on above: Performed By: #### C BCA, BMP, 73927-4, 29492-4, 33974-8 #### [facility] ([id number]) [address] [place] [address] WBC (Bld) [#/Vol] 7.7 10*3/uL Normal 4.0-11.0 [facility] Comment on above: Performed By: #### C BCA, BMP, 42229-5, 20923-5, 63006-5 #### [facility] ([id number]) [address], [address] [place] [address] COMPREHENSIVE METABOLIC PANE Jerome 01-14-2024 Albumin [Mass/Vol] 3.7 g/dL Normal 3.2-5.3 [facility] Comment on above: Performed By: #### C BCA, BMP, 83182-7, 37678-7, 80652-6 #### [facility] ([id number]) [address], [address] [place] [address] ALP [Catalytic activity/Vol] 57 U/L Normal 39-130 [facility] Comment on above: Performed By: #### C BCA, BMP, 42775-1, 17713-3, 31793-5 #### [facility] ([id number]) [address], [address] [place] [address] ALT [Catalytic activity/Vol] 7 U/L Normal 0-31 [facility] Comment on above: Performed By: #### C BCA, BMP, 12946-1, 36627-9, 04462-2 #### [facility] ([id number]) [address], [address] [place] [address] Anion gap [Moles/Vol] 11 mmol/L Normal 5-15 [facility] Comment on above: Performed By: #### C BCA, BMP, 94698-2, 62948-0, 99461-2 #### [facility] ([id number]) [address], [address] [place] [address] AST [Catalytic activity/Vol] 12 U/L Normal 0-41 [facility] Comment on above: Performed By: #### C BCA, BMP, 17632-7, 37917-5, 49407-8 #### [facility] ([id number]) [address] [place] [address] Bilirubin [Mass/Vol] 0.6 mg/dL Normal 0.3-1.2 [facility] Comment on above: Performed By: #### C BCA, BMP, 40710-7, 11556-9, 77604-8 #### [facility] ([id number]) [address] [place] [address] Calcium [Mass/Vol] 9.1 mg/dL Normal 8.5-10.5 [facility] Comment on above: Performed By: #### C BCA, BMP, 08668-2, 01489-2, 33630-7 #### [facility] ([id number]) [address] [place] [address] Chloride [Moles/Vol] 92 mmol/L Low 98-109 [facility] Comment on above: Performed By: #### C BCA, BMP, 86491-9, 35779-3, 62269-0 #### [facility] ([id number]) [address], [address] [place] [address] CO2 [Moles/Vol] 33 mmol/L High 22-32 [facility] Comment on above: Performed By: #### C BCA, BMP, 04378-0, 25478-5, 80324-1 #### [facility] ([id number]) [address], [address] [place] [address] Creatinine [Mass/Vol] 1.95 mg/dL High 0.40-1.00 [facility] Comment on above: Result Comment: METH OD TRACEABLE TO IDMS STANDARD Performed By: #### C BCA, BMP, 47182-7, 45221-1, 41793-2 #### [facility] ([id number]) [address] [place] [address] GFR/1.73 sq M.predicted among non-blacks MDRD (S/P/Bld) [Vol rate/Area] 26 mL/min/{1.73_m2} Low >59 [facility] Comment on above: Result Comment: Reported eGFR is based on the CKD-EPI 2020 equation that does not use a race coefficient. Performed By: #### C BCA, BMP, 57540-3, 95826-8, 64476-1 #### [facility] ([id number]) [address], [address] [place] [address] Glucose [Mass/Vol] 168 mg/dL High 65-99 [facility] Comment on above: Performed By: #### C BCA, BMP, 16622-5, 48988-5, 01064-1 #### [facility] ([id number]) [address], [address] [place] [address] Potassium [Moles/Vol] 4.3 mmol/L Normal 3.5-5.0 [facility] Comment on above: Performed By: #### C BCA, BMP, 59721-5, 30911-2, 70359-6 #### [facility] ([id number]) [address] [place] [address] Protein [Mass/Vol] 6.7 g/dL Normal 6.0-8.0 [facility] Comment on above: Performed By: #### C BCA, BMP, 80795-2, 30612-3, 06099-2 #### [facility] ([id number]) [address] [place] [address] Sodium [Moles/Vol] 136 mmol/L Normal 134-146 [facility] Comment on above: Performed By: #### C BCA, BMP, 55918-9, 68190-0, 47960-6 #### [facility] ([id number]) [address] [place] [address] Urea nitrogen [Mass/Vol] 60 mg/dL High 5-27 [facility] Comment on above: Performed By: #### C BCA, BMP, 53362-7, 13658-5, 37750-7 #### [facility] ([id number]) [address] [place] [address] Glucose Glucometer (BldC) [M ass/Vol]on 01-14-2024 Glucose [Mass/Vol] 185 mg/dL High 65-99 [facility] Glucose [Mass/Vol] 133 mg/dL High 65-99 [facility] Glucose [Mass/Vol] 150 mg/dL High 65-99 [facility] 36on 01-13-2024 36 Pt needs hospital follow up with either Norberto Smith or Lisa as soon as possible. Normal [facility] COMPLETE BLOOD COUNTon 01-12 Erythrocyte distribution width (RBC) [Ratio] 14.1 % Normal 11.5-15.0 [facility] Comment on above: Performed By: #### C BCA, BMP, 35756-0, 71694-4, 09256-1 #### [facility] ([id number]) [address] [place] [address] Hematocrit (Bld) [Volume fraction] 32.7 % Low 35-47 [facility] Comment on above: Performed By: #### C BCA, BMP, 71540-9, 82341-9, 79862-1 #### [facility] ([id number]) [address] [place] [address] Hemoglobin (Bld) [Mass/Vol] 11.2 g/dL Low 11.7-15.5 [facility] Comment on above: Performed By: #### C BCA, BMP, 16708-2, 40282-9, 85181-3 #### [facility] ([id number]) [address] [place] [address] MCH (RBC) [Entitic mass] 30.1 pg Normal 27-34 [facility] Comment on above: Performed By: #### C BCA, BMP, 44120-0, 45795-7, 70630-5 #### [facility] ([id number]) [address] [place] [address] MCHC (RBC) [Mass/Vol] 34.3 g/dL Normal 32-36 [facility] Comment on above: Performed By: #### C BCA, BMP, 07620-4, 29240-4, 96236-2 #### [facility] ([id number]) [address] [place] [address] MCV (RBC) [Entitic vol] 88 fL Normal 80-100 [facility] Comment on above: Performed By: #### C BCA, BMP, 18364-3, 31599-0, 58281-4 #### [facility] ([id number]) [address] [place] [address] Platelet mean volume (Bld) [Entitic vol] 9.3 fL Normal 7-12 [facility] Comment on above: Performed By: #### C BCA, BMP, 06758-7, 31686-8, 99127-6 #### [facility] ([id number]) [address] [place] [address] Platelets (Bld) [#/Vol] 219 10*3/uL Normal 150-450 [facility] Comment on above: Performed By: #### C BCA, BMP, 22720-0, 40664-4, 38053-3 #### [facility] ([id number]) [address] [place] [address] RBC COUNT 3.72 X10E12/L Low 3.80-5.20 [facility] Comment on above: Performed By: #### C BCA, BMP, 79166-7, 19905-5, 19097-3 #### [facility] ([id number]) [address] [place] [address] WBC (Bld) [#/Vol] 7.2 10*3/uL Normal 4.0-11.0 [facility] Comment on above: Performed By: #### C BCA, BMP, 83595-8, 44903-2, 71454-6 #### [facility] ([id number]) [address], [address] [place] [address] COMPREHENSIVE METABOLIC PANE Jerome 01-13-2024 Albumin [Mass/Vol] 3.8 g/dL Normal 3.2-5.3 [facility] Comment on above: Performed By: #### C BCA, BMP, 77617-6, 07590-5, 11445-2 #### [facility] ([id number]) [address] [place] [address] ALP [Catalytic activity/Vol] 58 U/L Normal 39-130 [facility] Comment on above: Performed By: #### C BCA, BMP, 35594-6, 69579-1, 79092-1 #### [facility] ([id number]) [address] [place] [address] ALT [Catalytic activity/Vol] 5 U/L Normal 0-31 [facility] Comment on above: Performed By: #### C BCA, BMP, 72559-9, 67594-4, 79937-5 #### [facility] ([id number]) [address] [place] [address] Anion gap [Moles/Vol] 12 mmol/L Normal 5-15 [facility] Comment on above: Performed By: #### C BCA, BMP, 82965-7, 63162-6, 41948-3 #### [facility] ([id number]) [address] [place] [address] AST [Catalytic activity/Vol] 13 U/L Normal 0-41 [facility] Comment on above: Performed By: #### C BCA, BMP, 05104-4, 73464-9, 90617-4 #### [facility] ([id number]) [address] [place] [address] Bilirubin [Mass/Vol] 0.7 mg/dL Normal 0.3-1.2 [facility] Comment on above: Performed By: #### C BCA, BMP, 43488-0, 84437-3, 54391-3 #### [facility] ([id number]) [address] [place] [address] Calcium [Mass/Vol] 9.5 mg/dL Normal 8.5-10.5 [facility] Comment on above: Performed By: #### C BCA, BMP, 82185-8, 04930-8, 76455-0 #### [facility] ([id number]) [address] [place] [address] Chloride [Moles/Vol] 92 mmol/L Low 98-109 [facility] Comment on above: Performed By: #### C BCA, BMP, 05744-8, 74436-1, 46140-7 #### [facility] ([id number]) [address] [place] [address] CO2 [Moles/Vol] 30 mmol/L Normal 22-32 [facility] Comment on above: Performed By: #### C BCA, BMP, 71752-4, 79955-2, 61356-9 #### [facility] ([id number]) [address] [place] [address] Creatinine [Mass/Vol] 1.85 mg/dL High 0.40-1.00 [facility] Comment on above: Result Comment: METH OD TRACEABLE TO IDMS STANDARD Performed By: #### C BCA, BMP, 30978-8, 96067-4, 48111-7 #### [facility] ([id number]) [address] [place] [address] GFR/1.73 sq M.predicted among non-blacks MDRD (S/P/Bld) [Vol rate/Area] 28 mL/min/{1.73_m2} Low >59 [facility] Comment on above: Result Comment: Reported eGFR is based on the CKD-EPI 2020 equation that does not use a race coefficient. Performed By: #### C BCA, BMP, 96087-1, 11169-3, 88442-8 #### [facility] ([id number]) [address] [place] [address] Glucose [Mass/Vol] 155 mg/dL High 65-99 [facility] Comment on above: Performed By: #### C BCA, BMP, 40617-6, 88640-6, 97940-5 #### [facility] ([id number]) [address] [place] [address] Potassium [Moles/Vol] 4.5 mmol/L Normal 3.5-5.0 [facility] Comment on above: Performed By: #### C BCA, BMP, 84970-0, 71584-1, 74366-6 #### [facility] ([id number]) [address] [place] [address] Protein [Mass/Vol] 7.1 g/dL Normal 6.0-8.0 [facility] Comment on above: Performed By: #### C BCA, BMP, 66959-6, 88835-1, 88891-0 #### [facility] ([id number]) [address] [place] [address] Sodium [Moles/Vol] 134 mmol/L Normal 134-146 [facility] Comment on above: Performed By: #### C BCA, BMP, 95413-8, 31048-7, 47153-9 #### [facility] ([id number]) [address] [place] [address] Urea nitrogen [Mass/Vol] 47 mg/dL High 5-27 [facility] Comment on above: Performed By: #### C BCA, BMP, 05603-9, 45088-0, 26964-5 #### [facility] ([id number]) [address] [place] [address] Glucose Glucometer (BldC) [M ass/Vol]on 01-13-2024 Glucose [Mass/Vol] 179 mg/dL High 65-99 [facility] Glucose [Mass/Vol] 134 mg/dL High 65-99 [facility] Glucose [Mass/Vol] 240 mg/dL High 65-99 [facility] Glucose [Mass/Vol] 172 mg/dL High 65-99 [facility] Telephoneon 01-13-2024 Telephone [phone] Michi Villa 1950 F Date Provider Department Center 01/13/2024 [id number], [facility] No family history on file Reason for Visit and Comments: Schedule hospital follow up [Other] Normal [facility] XR CHEST 1 VWon 01-13-2024 XR CHEST 1 VW XR CHEST 1 VW XR CHEST 1 VW 01/13/2024 9:05 AM SIGNS AND SYMPTOMS: Volume overload PROTOCOL: Frontal radiograph of the chest COMPARISON: 01/11/2024 FINDINGS: The trachea is midline. Atherosclerotic changes are present in the thoracic aorta. The heart and mediastinal structures are within normal limits. The lung parenchyma is clear. The bony thorax is intact. Degenerative changes are noted in the shoulders and thoracic spine. IMPRESSION: No acute cardiopulmonary pathology. Chronic findings are noted as above. Finalized by Dg Rodríguez on 01/13/2024 9:39 AM Normal [facility] COMPLETE BLOOD COUNTon 01-11 Erythrocyte distribution width (RBC) [Ratio] 14.1 % Normal 11.5-15.0 [facility] Comment on above: Performed By: #### C CHRISTO BMP, 31878-1, 83173-1, 31538-6 #### [facility] ([id number]) [address], [facility] [address] [place] [address] Hematocrit (Bld) [Volume fraction] 33.5 % Low 35-47 [facility] Comment on above: Performed By: #### Maicol BCA, BMP, 89836-4, 47866-1, 40089-3 #### [facility] ([id number]) [address] [address] Hemoglobin (Bld) [Mass/Vol] 11.2 g/dL Low 11.7-15.5 [facility] Comment on above: Performed By: #### Maicol BCA, BMP, 58567-3, 11187-0, 28855-5 #### [facility] ([id number]) [address] [address] [place] [address] MCH (RBC) [Entitic mass] 29.9 pg Normal 27-34 [facility] Comment on above: Performed By: #### Maicol BCA, BMP, 91534-2, 03770-9, 11580-7 #### [facility] ([id number]) [address], [facility] [address] [place] [address] MCHC (RBC) [Mass/Vol] 33.5 g/dL Normal 32-36 [facility] Comment on above: Performed By: #### C BCA, BMP, 17365-7, 62425-6, 22169-6 #### [facility] ([id number]) [address] [place] [address] MCV (RBC) [Entitic vol] 89 fL Normal 80-100 [facility] Comment on above: Performed By: #### C BCA, BMP, 52442-6, 03454-1, 11614-9 #### [facility] ([id number]) [address], [facility] [address] [place] [address] Platelet mean volume (Bld) [Entitic vol] 8.9 fL Normal 7-12 [facility] Comment on above: Performed By: #### Maicol BCA, BMP, 96824-1, 31212-6, 11513-5 #### [facility] ([id number]) [address] [place] [address] Platelets (Bld) [#/Vol] 201 10*3/uL Normal 150-450 [facility] Comment on above: Performed By: #### C BCA, BMP, 96736-4, 31879-2, 99871-8 #### [facility] ([id number]) [address] [place] [address] RBC COUNT 3.76 X10E12/L Low 3.80-5.20 [facility] Comment on above: Performed By: #### C BCA, BMP, 46236-4, 97107-7, 91849-1 #### [facility] ([id number]) [address] [place] [address] WBC (Bld) [#/Vol] 8.5 10*3/uL Normal 4.0-11.0 [facility] Comment on above: Performed By: #### C BCA, BMP, 64160-8, 04238-3, 55266-8 #### [facility] ([id number]) [address], [address] [place] [address] COMPREHENSIVE METABOLIC PANE Jeorme 01-12-2024 Albumin [Mass/Vol] 3.8 g/dL Normal 3.2-5.3 [facility] Comment on above: Performed By: #### C BCA, BMP, 68932-7, 17322-3, 26584-7 #### [facility] ([id number]) [address], [address] [place] [address] ALP [Catalytic activity/Vol] 50 U/L Normal 39-130 [facility] Comment on above: Performed By: #### C BCA, BMP, 77035-7, 90826-2, 52635-9 #### [facility] ([id number]) [address], [address] [place] [address] ALT [Catalytic activity/Vol] 9 U/L Normal 0-31 [facility] Comment on above: Performed By: #### C BCA, BMP, 03270-5, 02013-8, 89191-5 #### [facility] ([id number]) [address], [address] [place] [address] Anion gap [Moles/Vol] 9 mmol/L Normal 5-15 [facility] Comment on above: Performed By: #### C BCA, BMP, 73565-7, 18334-2, 12715-8 #### [facility] ([id number]) [address], [address] [place] [address] AST [Catalytic activity/Vol] 14 U/L Normal 0-41 [facility] Comment on above: Performed By: #### C BCA, BMP, 74377-2, 56820-1, 60915-5 #### [facility] ([id number]) [address], [address] [place] [address] Bilirubin [Mass/Vol] 0.8 mg/dL Normal 0.3-1.2 [facility] Comment on above: Performed By: #### C BCA, BMP, 91793-0, 15643-1, 51358-7 #### [facility] ([id number]) [address], [facility] [address] [place] [address] Calcium [Mass/Vol] 9.6 mg/dL Normal 8.5-10.5 [facility] Comment on above: Performed By: #### C BCA, BMP, 40155-9, 23844-3, 09448-2 #### [facility] ([id number]) [address] [place] [address] Chloride [Moles/Vol] 96 mmol/L Low 98-109 [facility] Comment on above: Performed By: #### C BCA, BMP, 39352-3, 52218-0, 20951-7 #### [facility] ([id number]) [address] [place], [place] [address] CO2 [Moles/Vol] 35 mmol/L High 22-32 [facility] Comment on above: Performed By: #### C BCA, BMP, 23472-7, 10020-1, 25537-1 #### [facility] ([id number]) [address] [place] [address] Creatinine [Mass/Vol] 1.32 mg/dL High 0.40-1.00 [facility] Comment on above: Result Comment: METH OD TRACEABLE TO IDMS STANDARD Performed By: #### C BCA, BMP, 26145-1, 03881-4, 84950-5 #### [facility] ([id number]) [address] [place] [address] GFR/1.73 sq M.predicted among non-blacks MDRD (S/P/Bld) [Vol rate/Area] 42 mL/min/{1.73_m2} Low >59 [facility] Comment on above: Result Comment: Reported eGFR is based on the CKD-EPI 2020 equation that does not use a race coefficient. Performed By: #### C BCA, BMP, 39448-4, 44248-8, 89315-0 #### [facility] ([id number]) [address] [place] [address] Glucose [Mass/Vol] 102 mg/dL High 65-99 [facility] Comment on above: Performed By: #### C BCA, BMP, 75027-8, 53916-5, 56054-6 #### [facility] ([id number]) [address], [address] [place] [address] Potassium [Moles/Vol] 4.6 mmol/L Normal 3.5-5.0 [facility] Comment on above: Performed By: #### C BCA, BMP, 17811-7, 86518-1, 54162-9 #### [facility] ([id number]) [address] [place] [address] Protein [Mass/Vol] 7.0 g/dL Normal 6.0-8.0 [facility] Comment on above: Performed By: #### C BCA, BMP, 41418-4, 91403-7, 39233-7 #### [facility] ([id number]) [address] [place] [address] Sodium [Moles/Vol] 140 mmol/L Normal 134-146 [facility] Comment on above: Performed By: #### C BCA, BMP, 92084-3, 04174-1, 81127-4 #### [facility] ([id number]) [address] [place] [address] Urea nitrogen [Mass/Vol] 32 mg/dL High 5-27 [facility] Comment on above: Performed By: #### C BCA, BMP, 30983-4, 84782-7, 52445-1 #### [facility] ([id number]) [address] [place] [address] Glucose Glucometer (BldC) [M ass/Vol]on 01-12-2024 Glucose [Mass/Vol] 140 mg/dL High 65-99 [facility] Glucose [Mass/Vol] 173 mg/dL High 65-99 [facility] Glucose [Mass/Vol] 210 mg/dL High 65-99 [facility] Glucose [Mass/Vol] 150 mg/dL High 65-99 [facility] BASIC METABOLIC PANLon 01-10 Anion gap [Moles/Vol] 6 mmol/L Normal 5-15 [facility] Comment on above: Performed By: #### C BCA, BMP, 88038-4, 37877-0, 49725-7 #### [facility] ([id number]) [address] [place] [address] Calcium [Mass/Vol] 9.8 mg/dL Normal 8.5-10.5 [facility] Comment on above: Performed By: #### C BCA, BMP, 14853-8, 27120-0, 19442-7 #### [facility] ([id number]) [address] [place] [address] Chloride [Moles/Vol] 101 mmol/L Normal 98-109 [facility] Comment on above: Performed By: #### C BCA, BMP, 80170-5, 34108-6, 56626-0 #### [facility] ([id number]) [address] [place] [address] CO2 [Moles/Vol] 30 mmol/L Normal 22-32 [facility] Comment on above: Performed By: #### C BCA, BMP, 10857-8, 38733-4, 74558-2 #### [facility] ([id number]) [address], [address] [place] [address] Creatinine [Mass/Vol] 1.46 mg/dL High 0.40-1.00 [facility] Comment on above: Result Comment: METH OD TRACEABLE TO IDMS STANDARD Performed By: #### C BCA, BMP, 86862-8, 89931-4, 73493-2 #### [facility] ([id number]) [address], [facility] [address] [place] [address] GFR/1.73 sq M.predicted among non-blacks MDRD (S/P/Bld) [Vol rate/Area] 37 mL/min/{1.73_m2} Low >59 [facility] Comment on above: Result Comment: Reported eGFR is based on the CKD-EPI 2020 equation that does not use a race coefficient. Performed By: #### C BCA, BMP, 22272-1, 42784-2, 25609-3 #### [facility] ([id number]) [address], [address] [place] [address] Glucose [Mass/Vol] 163 mg/dL High 65-99 [facility] Comment on above: Performed By: #### C BCA, BMP, 31183-6, 72510-5, 81344-2 #### [facility] ([id number]) [address] [place] [address] Potassium [Moles/Vol] 5.1 mmol/L High 3.5-5.0 [facility] Comment on above: Performed By: #### C BCA, BMP, 41483-2, 50681-1, 68915-5 #### [facility] ([id number]) [address] [place] [address] Sodium [Moles/Vol] 137 mmol/L Normal 134-146 [facility] Comment on above: Performed By: #### C BCA, BMP, 36912-6, 13112-4, 84721-3 #### [facility] ([id number]) [address], [address] [place] [address] Urea nitrogen [Mass/Vol] 25 mg/dL Normal 5-27 [facility] Comment on above: Performed By: #### C BCA, BMP, 18857-1, 23031-8, 86003-3 #### [facility] ([id number]) [address], [address] [place] [address] CBC AND AUTO DIFFon 01-11-20 24 ABSOLUTE BASOPHIL 0.1 X10E9/L Normal 0.0-0.2 [facility] Comment on above: Performed By: #### C BCA, BMP, 07899-0, 08911-5, 79027-0 #### [facility] ([id number]) [address], [address] [place] [address] ABSOLUTE NEUTROPHIL 7.7 X10E9/L High 1.5-6.6 [facility] Comment on above: Performed By: #### C BCA, BMP, 95950-0, 42661-0, 52950-6 #### [facility] ([id number]) [address], [address] [place] [address] Basophils/100 WBC (Bld) 0.7 % Normal [facility] Comment on above: Performed By: #### C BCA, BMP, 35780-4, 87526-2, 10878-3 #### [facility] ([id number]) [address], [address] [place] [address] Eosinophils (Bld) [#/Vol] 0.1 10*3/uL Normal 0.0-0.4 [facility] Comment on above: Performed By: #### C BCA, BMP, 59425-1, 50583-7, 89625-7 #### [facility] ([id number]) [address], [address] [place] [address] Eosinophils/100 WBC (Bld) 1.0 % Normal [facility] Comment on above: Performed By: #### C BCA, BMP, 94430-3, 51927-9, 87180-3 #### [facility] ([id number]) [address], [address] [place] [address] Erythrocyte distribution width (RBC) [Ratio] 14.1 % Normal 11.5-15.0 [facility] Comment on above: Performed By: #### C BCA, BMP, 94483-5, 82427-8, 74982-3 #### [facility] ([id number]) [address], [facility] [address] [place] [address] Hematocrit (Bld) [Volume fraction] 34.8 % Low 35-47 [facility] Comment on above: Performed By: #### C BCA, BMP, 81365-0, 41266-9, 80734-5 #### [facility] ([id number]) [address], [address] [place] [address] Hemoglobin (Bld) [Mass/Vol] 11.3 g/dL Low 11.7-15.5 [facility] Comment on above: Performed By: #### C BCA, BMP, 54276-7, 69610-1, 98739-9 #### [facility] ([id number]) [address], [address] [place] [address] Lymphocytes (Bld) [#/Vol] 1.6 10*3/uL Normal 1.0-3.5 [facility] Comment on above: Performed By: #### C BCA, BMP, 00428-6, 47247-6, 21159-8 #### [facility] ([id number]) [address] [place] [address] Lymphocytes/100 WBC (Bld) 16.0 % Normal [facility] Comment on above: Performed By: #### C BCA, BMP, 31787-9, 74065-1, 11491-8 #### [facility] ([id number]) [address], [address] [place] [address] MCH (RBC) [Entitic mass] 29.3 pg Normal 27-34 [facility] Comment on above: Performed By: #### C BCA, BMP, 15145-7, 30331-1, 37072-9 #### [facility] ([id number]) [address] [place] [address] MCHC (RBC) [Mass/Vol] 32.6 g/dL Normal 32-36 [facility] Comment on above: Performed By: #### C BCA, BMP, 15251-8, 50718-7, 81452-7 #### [facility] ([id number]) [address], [address] [place] [address] MCV (RBC) [Entitic vol] 90 fL Normal 80-100 [facility] Comment on above: Performed By: #### C BCA, BMP, 67757-7, 46007-7, 58628-6 #### [facility] ([id number]) [address] [place] [address] Monocytes (Bld) [#/Vol] 0.7 10*3/uL Normal 0-0.9 [facility] Comment on above: Performed By: #### C BCA, BMP, 16004-3, 80710-9, 24831-9 #### [facility] ([id number]) [address], [address] [place] [address] Monocytes/100 WBC (Bld) 7.1 % Normal [facility] Comment on above: Performed By: #### C BCA, BMP, 93471-0, 86588-1, 48914-6 #### [facility] ([id number]) [address] [place] [address] Neutrophils/100 WBC (Bld) 75.2 % Normal [facility] Comment on above: Performed By: #### C BCA, BMP, 87687-4, 54890-1, 59704-0 #### [facility] ([id number]) [address] [place] [address] Platelet mean volume (Bld) [Entitic vol] 9.1 fL Normal 7-12 [facility] Comment on above: Performed By: #### C BCA, BMP, 68991-0, 86117-6, 60756-6 #### [facility] ([id number]) [address] [address] Platelets (Bld) [#/Vol] 223 10*3/uL Normal 150-450 [facility] Comment on above: Performed By: #### Maicol BCA, BMP, 44740-3, 66195-4, 41560-5 #### [facility] ([id number]) [address] [place] [address] RBC COUNT 3.87 X10E12/L Normal 3.80-5.20 [facility] Comment on above: Performed By: #### C BCA, BMP, 41128-7, 66026-9, 14807-5 #### [facility] ([id number]) [address], [address] [address] WBC (Bld) [#/Vol] 10.2 10*3/uL Normal 4.0-11.0 [facility] Comment on above: Performed By: #### C BCA, BMP, 39406-8, 25034-2, 75431-8 #### [facility] ([id number]) [address], [facility] [address] [place] [address] COMPLETE BLOOD COUNTon 01-10 Erythrocyte distribution width (RBC) [Ratio] 14.4 % Normal 11.5-15.0 [facility] Comment on above: Performed By: #### C BCA, BMP, 54114-2, 97988-6, 26722-8 #### [facility] ([id number]) [address] [place] [address] Hematocrit (Bld) [Volume fraction] 31.6 % Low 35-47 [facility] Comment on above: Performed By: #### C BCA, BMP, 13206-4, 65066-9, 86444-2 #### [facility] ([id number]) [address], [address] [place] [address] Hemoglobin (Bld) [Mass/Vol] 10.6 g/dL Low 11.7-15.5 [facility] Comment on above: Performed By: #### C BCA, BMP, 36266-8, 43590-3, 62107-0 #### [facility] ([id number]) [address] [place] [address] MCH (RBC) [Entitic mass] 29.8 pg Normal 27-34 [facility] Comment on above: Performed By: #### C BCA, BMP, 17035-2, 02559-0, 16395-7 #### [facility] ([id number]) [address] [place] [address] MCHC (RBC) [Mass/Vol] 33.7 g/dL Normal 32-36 [facility] Comment on above: Performed By: #### C BCA, BMP, 57008-2, 98633-5, 71475-0 #### [facility] ([id number]) [address], [address] [place] [address] MCV (RBC) [Entitic vol] 89 fL Normal 80-100 [facility] Comment on above: Performed By: #### C BCA, BMP, 19466-8, 26730-1, 49971-8 #### [facility] ([id number]) [address] [place] [address] Platelet mean volume (Bld) [Entitic vol] 9.1 fL Normal 7-12 [facility] Comment on above: Performed By: #### C BCA, BMP, 67417-9, 31591-7, 24769-5 #### [facility] ([id number]) [address] [place] [address] Platelets (Bld) [#/Vol] 210 10*3/uL Normal 150-450 [facility] Comment on above: Performed By: #### C BCA, BMP, 07107-1, 32784-7, 79611-0 #### [facility] ([id number]) [address], [facility] [address] [place] [address] RBC COUNT 3.57 X10E12/L Low 3.80-5.20 [facility] Comment on above: Performed By: #### Maicol BCA, BMP, 62761-4, 33668-3, 81774-1 #### [facility] ([id number]) [address] [place] [address] WBC (Bld) [#/Vol] 7.9 10*3/uL Normal 4.0-11.0 [facility] Comment on above: Performed By: #### C BCA, BMP, 94694-1, 34282-2, 43561-5 #### [facility] ([id number]) [address], [address] [place] [address] COMPREHENSIVE METABOLIC PANE [facility] 01-11-2024 Albumin [Mass/Vol] 3.8 g/dL Normal 3.2-5.3 [facility] Comment on above: Performed By: #### C BCA, BMP, 55839-9, 58507-5, 69417-8 #### [facility] ([id number]) [address] [place] [address] ALP [Catalytic activity/Vol] 47 U/L Normal 39-130 [facility] Comment on above: Performed By: #### C BCA, BMP, 09252-8, 17026-0, 30500-9 #### [facility] ([id number]) [address], [address] [place] [address] ALT [Catalytic activity/Vol] 10 U/L Normal 0-31 [facility] Comment on above: Performed By: #### C BCA, BMP, 56780-1, 95314-2, 32111-0 #### [facility] ([id number]) [address], [address] [place] [address] Anion gap [Moles/Vol] 9 mmol/L Normal 5-15 [facility] Comment on above: Performed By: #### C BCA, BMP, 10725-1, 31076-7, 61631-0 #### [facility] ([id number]) [address] [place] [address] AST [Catalytic activity/Vol] 13 U/L Normal 0-41 [facility] Comment on above: Performed By: #### C BCA, BMP, 28745-6, 31805-2, 38032-0 #### [facility] ([id number]) [address] [place] [address] Bilirubin [Mass/Vol] 0.8 mg/dL Normal 0.3-1.2 [facility] Comment on above: Performed By: #### C BCA, BMP, 32978-8, 62464-7, 39556-0 #### [facility] ([id number]) [address] [place] [address] Calcium [Mass/Vol] 9.4 mg/dL Normal 8.5-10.5 [facility] Comment on above: Performed By: #### C BCA, BMP, 20240-6, 13554-5, 74943-9 #### [facility] ([id number]) [address] [place] [address] Chloride [Moles/Vol] 100 mmol/L Normal 98-109 [facility] Comment on above: Performed By: #### C BCA, BMP, 79087-2, 67738-7, 52961-7 #### [facility] ([id number]) [address] [place] [address] CO2 [Moles/Vol] 30 mmol/L Normal 22-32 [facility] Comment on above: Performed By: #### C BCA, BMP, 93913-0, 58233-5, 31586-1 #### [facility] ([id number]) [address] [place] [address] Creatinine [Mass/Vol] 1.30 mg/dL High 0.40-1.00 [facility] Comment on above: Result Comment: METH OD TRACEABLE TO IDMS STANDARD Performed By: #### C BCA, BMP, 65036-1, 22204-4, 14003-7 #### [facility] ([id number]) [address] [place] [address] GFR/1.73 sq M.predicted among non-blacks MDRD (S/P/Bld) [Vol rate/Area] 43 mL/min/{1.73_m2} Low >59 [facility] Comment on above: Result Comment: Reported eGFR is based on the CKD-EPI 2020 equation that does not use a race coefficient. Performed By: #### C BCA, BMP, 53380-1, 14591-9, 61381-7 #### [facility] ([id number]) [address] [place] [address] Glucose [Mass/Vol] 113 mg/dL High 65-99 [facility] Comment on above: Performed By: #### C BCA, BMP, 26974-2, 26837-3, 27919-3 #### [facility] ([id number]) [address] [place] [address] Potassium [Moles/Vol] 4.7 mmol/L Normal 3.5-5.0 [facility] Comment on above: Performed By: #### C BCA, BMP, 17788-4, 89020-1, 14767-3 #### [facility] ([id number]) [address] [place] [address] Protein [Mass/Vol] 6.8 g/dL Normal 6.0-8.0 [facility] Comment on above: Performed By: #### C BCA, BMP, 32576-9, 36327-5, 37160-1 #### [facility] ([id number]) [address] [place] [address] Sodium [Moles/Vol] 139 mmol/L Normal 134-146 [facility] Comment on above: Performed By: #### C BCA, BMP, 34447-9, 75740-9, 14743-8 #### [facility] ([id number]) [address], [facility] [address] [place] [address] Urea nitrogen [Mass/Vol] 21 mg/dL Normal 5-27 [facility] Comment on above: Performed By: #### C BCA, BMP, 55986-8, 58573-8, 60981-1 #### [facility] ([id number]) [address] [place] [address] CT CTA CHESTon 01-11-[address] CTA CHEST CLINICAL INFORMATION: R/O PE TECHNIQUE: CT CTA CHEST CTA of the chest was obtained. Intravenous contrast was administered. Post processed three-dimensional maximum intensity projection imaging was acquired and evaluated. 3 cm mass noted within the left lung lingular segment near fissure. Ill-defined infiltrate noted within the periphery of the right middle lobe. Pulmonary vessels enhance normally without convincing evidence of emboli. Mildly prominent right infrahilar node measuring 1.3 cm. There are mediastinal calcifications present, possibly sequela of previous adenomatous disease. Limited images the upper abdomen are unremarkable. IMPRESSION: No obvious pulmonary emboli. 3 cm mass lingular segment left lung. Consider PET/CT scan to assess malignant potential. Ill-defined infiltrate periphery of the right middle lobe. All CT scans at this facility use dose modulation, iterative reconstruction, and/or weight based dosing when appropriate to reduce radiation dose to as low as reasonably achievable. Finalized by Alex Hernandez MD on 01/11/2024 10:37 AM Normal [facility] Folate [Mass/Vol]on 01-11-20 24 FOLIC ACID >25.0 Normal >5.8 [facility] Comment on above: Result Comment: NEW REFERENCE RANGE Performed By: #### C SHIRLEY VILLAFUERTE, 27800-8, 06553-1, 17404-2 #### [facility] ([id number]) [address] [place] [address] Glucose Glucometer (BldC) [M ass/Vol]on 01-11-2024 Glucose [Mass/Vol] 209 mg/dL High 65-99 [facility] Glucose [Mass/Vol] 109 mg/dL High 65-99 [facility] HGB A1C (GLYCO-HGB)on 2023 Glucose [Mass/Vol] 148 mg/dL Normal [facility] Comment on above: Performed By: #### C SHIRLEY VILLAFUERTE, 31730-8, 14205-3, 63436-1 #### [facility] ([id number]) [address] [place] [address] HbA1c (Bld) [Mass fraction] 6.8 % High 4.4-5.6 [facility] Comment on above: Result Comment: NOTE ADA Guidelines Result HgbA1c Normal : less than 5.7 % Prediabetes : 5.7 % to 6.4 % Diabetes : > 6.4 % Use with caution in patients with abnormal hemoglobin variants as the half-life of red blood cells and in vivo glycation rates are affected. Performed By: #### C CHRISTO BMP, 16316-6, 58123-5, 84462-3 #### [facility] ([id number]) [address] [place] [address] IRON PROFILEon 01-11-2024 Iron [Mass/Vol] 35 ug/dL Low 50-170 [facility] Comment on above: Performed By: #### C BCA, BMP, 29101-4, 18918-3, 77821-8 #### [facility] ([id number]) [address] [place] [address] IRON BINDING 256 ug/dL Normal 250-425 [facility] Comment on above: Performed By: #### C BCA, BMP, 85767-2, 63669-2, 74490-5 #### [facility] ([id number]) [address] [place] [address] IRON SATURATION 14 % SATURATION Low 15-50 [facility] Comment on above: Performed By: #### C BCA, BMP, 05342-6, 51636-1, 77831-8 #### [facility] ([id number]) [address], [address] [place] [address] MAGNESIUMon 01-11-2024 Magnesium [Mass/Vol] 1.8 mg/dL Normal 1.8-2.6 [facility] Comment on above: Performed By: #### C BCA, BMP, 15964-4, 55617-7, 49018-6 #### [facility] ([id number]) [address] [place] [address] Magnesium [Mass/Vol] 1.8 mg/dL Normal 1.8-2.6 [facility] Comment on above: Performed By: #### C BCA, BMP, 03681-3, 48066-9, 16647-0 #### [facility] ([id number]) [address] [place] [address] Natriuretic peptide B [Mass/ Vol]on 01-11-2024 Natriuretic peptide B (Bld) [Mass/Vol] 210 pg/mL High <100.0 [facility] Comment on above: Performed By: #### C CHRISTO, SHIRLEY, 27232-2, 58292-5, 97333-2 #### [facility] ([id number]) [address] [place] [address] Procalcitonin IA [Mass/Vol]o n 01-11-2024 PROCALCITONIN <0.05 Normal <0.05 [facility] Comment on above: Result Comment: NOTE <0.50 ng/mL - Low risk of severe sepsis and/or septic shock. <2.00 ng/mL - Recommend retesting within 6-24 hours. >2.00 ng/mL - High risk of sepsis and/or septic shock. Performed By: #### C CHRISTO, SHIRLEY, 43477-5, 30644-4, 78863-0 #### [facility] ([id number]) [address] [place] [address] SARS/FLU A+B/RSV by NAAT/Mol ecularon 01-11-2024 SARS/FLU A+B/RSV by NAAT/Molecular FLU A PCR Negative (qualifier value) FLU B PCR Negative (qualifier value) RSV by PCR Negative (qualifier value) SARS CoV 2 Not detected (qualifier value) NOTE The Xpert Xpress SARS-CoV-2/Flu/RSV Plus test is a rapid, multiplexed real-time RT-PCR test intended for the simultaneous qualitative detection and differentiation of SARS-CoV-2, influenza A, influenza B and respiratory syncytial virus (RSV) viral RNA from individuals suspected of respiratory viral infection consistent with COVID-19 by their healthcare provider. This test has not been validated in asymptomatic patients. The Xpert Xpress SARS-CoV-2 test is intended for use by qualified and trained operators who are performing tests using either [employer] or [employer] systems and is limited to laboratories that meet the CLIA requirements to perform high and moderate complexity tests. The Xpert Xpress SARS-CoV-2/Flu/RSV Plus is only for use under the Food and Drug Administration's Emergency Use Authorization. Results are for the simultaneous detection and differentiation of SARS-CoV-2, influenza A, influenza B and RSV nucleic acids in clinical specimens. SARS-CoV-2, influenza A, influenza B and RSV RNA identified by this test are generally detectable in upper respiratory samples during the acute phase of infection. Positive results are indicative of the presence of the identified virus, but do not rule out bacterial infection or co-infection with other pathogens not detected by this test. Clinical correlation with patient history and other diagnostic information is necessary to determine patient infection status. The agent detected may not be the definite cause of disease. Negative results do not preclude SARS-CoV-2, influenza A, influenza B and RSV infection and should not be used as the sole basis for treatment or other patient management decisions. Negative results must be combined with clinical observations, patient history and epidemiological information. An Invalid result may occur with specimen-associated inhibition unable to be resolved with specimen repeat. Fact Sheet for Healthcare Providers: https://www.fda.gov/[place] stacie/436236/download Fact Sheet for Patients: https://www.fda.gov/[place]acie/309729/download Normal [facility] Comment on above: Performed By: #### C OVFLR #### [facility] ([id number]) [address], [address] [address] THYROID PROFILEon 01-11-2024 Free T4 [Mass/Vol] 0.99 ng/dL Normal 0.61-1.60 [facility] Comment on above: Performed By: #### C SHIRLEY VILLAFUERTE, 98644-6, 95910-6, 27320-0 #### [facility] ([id number]) [address], [facility] [address] [place] [address] TSH 1.19 uIU/mL Normal 0.49-4.67 [facility] Comment on above: Performed By: #### C SHIRLEY VILLAFUERTE, 60015-1, 45193-1, 15844-1 #### [facility] ([id number]) [address], [facility] [address] [place] [address] Troponin I.cardiac High sens itivity method [Mass/Vol]on 01-11-2024 1 HOUR TROP I, HIGH SENSITIVITY 9 ng/L Normal <16 [facility] Comment on above: Performed By: #### 8 9579-7 #### [facility] ([id number]) [address] [place] [address] TROPONIN I, HIGH SENSITIVITY 9 ng/L Normal <16 [facility] Comment on above: Performed By: #### 8 9579-7 #### [facility] ([id number]) [address] [place] [address] VITAMIN B12on 01-11-2024 Cobalamin (Vitamin B12) [Mass/Vol] 516 pg/mL Normal 180-914 [facility] Comment on above: Performed By: #### C BCA, BMP, 10242-1, 68433-1, 64948-1 #### [facility] ([id number]) [address] [facility], [address] [place] [address] XR CHEST 1 VWon 01-11-2024 XR CHEST 1 VW XR CHEST 1 VW History: Shortness of breath. Congestive heart failure. Exam/Technique: AP view of the chest. XR CHEST 1 VW Comparison: 01/08/2020 Findings: Patient is slightly rotated. Mild prominence of central and basilar pulmonary markings may indicate developing congestion. No large effusion or definitive focal airspace disease. IMPRESSION: * Mild prominence of central and basilar markings may indicate developing congestion. Finalized by Yeison Vargas DO on 01/11/2024 9:06 AM Normal [facility] Ambulatory Visit Summaryon 0 01-05-2024 Ambulatory Visit Summary Ambulatory Visit Summary JOEAVILA TEIXEIRA Philip ALVARADOB:1950 Visit Date:01/05/2024 Ambulatory Visit Instructions Your Diagnosis Mixed incontinence urge and stress Incomplete bladder emptying Hydronephrosis, right Bilateral renal cysts Chronic kidney disease stage 4 Your Care Team Attending Physician - Konrad JOVEL, AALIYAH, Jo Ann Olmedo Primary Care Physician - PRO JEAN CNP This Is Your Medications List acetaminophen (acetaminophen 325 mg Tab) albuterol (Albuterol (Eqv-Proventil HFA) 90 mcg/inh inhalation aerosol) alendronate (alendronate 70 mg oral tablet) ascorbic acid (ascorbic acid 250 mg oral tablet, chewable) aspirin (aspirin 81 mg Oral EC Tab) brexpiprazole (Rexulti 0.5 mg oral tablet) cholecalciferol (Vitamin D3) cyanocobalamin (Vitamin B-12 1000 mcg oral tablet) ferrous sulfate furosemide (furosemide 20 mg Tab) hydrochlorothiazide-li sinopril (hydrochlorothiazide-l isinopril 12.5 mg-20 mg Tab) magnesium oxide (magnesium [...] and adenoidectomy. Discharge Vitals Heart Rate (Peripheral) 82 Blood Pressure 134/72 Height 152 cm Height 60 in Weight 77 kg Weight 169.4 lb BMI 33.33 Medications What How Much When Instructions Unchanged acetaminophen (acetaminophen 325 mg Tab) 30 tab(s), 0 Refill(s) Unchanged albuterol (Albuterol (Eqv-Proventil HFA) 90 mcg/ inh inhalation aerosol) 6 Unspecified/ Unknown, 0 Refill(s) Unchanged alendronate (alendronate 70 mg oral tablet) By Mouth Every week Unchanged ascorbic acid (ascorbic acid 250 mg oral tablet, chewable) 60 tab(s), 0 Refill(s) Unchanged aspirin (aspirin 81 mg Oral EC Tab) 1 Tablets By Mouth Every day Unchanged brexpiprazole (Rexulti 0.5 mg oral tablet) 1 Tablets By Mouth Every day Unchanged cholecalciferol (Vitamin D3) 50,000 Units By Mouth Every week Unchanged cyanocobalamin (Vitamin B-12 1000 mcg oral tablet) 11 tab(s), 0 Refill(s) Unchanged ferrous sulfate 325 Milligram By Mouth Every day Unchanged furosemide (furosemide 20 mg Tab) By Mouth Every day Unchanged hydrochlorothiazide-li sinopril (hydrochlorothiazide-l isinopril 12.5 mg-20 mg Tab) 1 Tablets By Mouth Every day Unchanged magnesium oxide (magnesium oxide 400 mg Tab) 1 Tablets By Mouth Every day Unchanged ondansetron (ondansetron 4 mg Dis Tab) 1 Tablets By Mouth Every 4 hours as needed for Nausea/Vomiting Unchanged oxybutynin (oxybutynin 10 mg ER Tab) 1 Tablets By Mouth Every day Unchanged pantoprazole (Pantoprazole [address] Tab) 1 Tablets By Mouth Every day Unchanged potassium chloride (potassium chloride 20 mEq ER Tab) 1 Tablets By Mouth Every day Unchanged rosuvastatin (rosuvastatin 5 mg Tab) 1 Tablets By Mouth Every day Unchanged sertraline (Zoloft 25 mg Tab) 1 Tablets By Mouth Every day Unchanged tirzepatide (Mounjaro 5 mg/ 0.5 mL subcutaneous solution) 5 Milligram Subcutaneous Every week Allergies No Known Allergies Problems Ongoing - Any problem that you are currently receiving treatment for. Anemia of renal disease Anxiety Bilateral renal cysts BMI 32.0-32.9,adult Chronic kidney disease due to hypertension.. Chronic kidney disease stage 4 Combined systolic and diastolic heart failure Depression Diabetes Diverticulosis Edema of lower extremity Essential hypertension GERD (gastroesophageal reflux disease) HTN (hypertension) Hydronephrosis, right Hyperlipidemia Hypothyroidism Incomplete bladder emptying Lymphedema Migraines Mixed incontinence urge and stress Obesity Osteoporosis Schizoaffective disorder Screening for malignant neoplasm of colon Secondary hyperparathyroidism Stenosis of aorta TIA (transient ischemic attack) Vaginal yeast infection Historical - Any problem that you are no longer receiving treatment for. Anemia Arthritis Asthma CKD stage 3 Diabetes mellitus type 2 Headache Heart murmur duration, short Hypertension Hypothyroid Psychiatric disorder Stroke Patient Survey You may receive a survey via text or e-mail asking about your office visit. Please share your experience with us by completing your survey. We appreciate your feedback and thank you for choosing us for your care. [facility] Reminders Reminders From: Deloris Squires To: EU - Administrative; Sent: 01/05/2024 11:24:46 EDT Show up: 04/27/2024 11:24:00 EST Subject: Ambulatory Reminder Due Date/Time: 07/26/2024 11:24:00 EDT Reminder/Recall Patient needs scheduled with AO for a 6 month F/U, due back in June of 2024 Normal [facility] Urology Office/Clinic Noteon 01-05-2024 Urology Office/Clinic Note Urology Office/Clinic Note Chief Complaint 6-8 WK F/U W/ PVR HPI Staff Prior DLS pt here for 6 wk f/u to starting Myrbetriq. Dx: mixed incontinence, vaginal yeast infection, incomplete bladder emptying, right hydronephrosis, bilateral renal cysts. Was given Diflucan at prior OV for suspected yeast infection. PVR _22_. Dysuria: _no Incomplete bladder emptying: _no Hematuria: _no Frequency: _q1-2 hrs Urgency: _yes Nocturia: _1-2x Stream: normal Leaking: _yes Post void dripping: _yes Wearing pads/ Depends: _yes Urge incontinence: _at times Stress incontinence: _yes Incontinence without Sensory Awareness: _no Abdominal pain: _no Flank pain: _no Sexual complaints: _ History of Present Illness I have reviewed and verified the staff HPI to be accurate for this encounter. Portions of this record may have been created with voice recognition artificial intelligence software, specifically MeeWee, [employer] and or [employer]am[employer]. Substitutions may have occurred due to the inherent limitations of voice recognition and artificial intelligence software. Review of Systems PHQ Score Initial Depression Screen Score: 0 SCORE Physical Exam Vitals & Measurements HR: 82(Peripheral) BP: 134/72 HT: 60 in HT: 152 cm WT: 77 kg WT: 169.4 lb BMI: 33.33 General: Well developed, well nourished, in no acute distress. Assessment/Plan 1. Mixed incontinence urge and stress (N39.46: Mixed incontinence) UUI > ANEL UA today with trace leukocytes, no blood or nitrites. Patient denies any symptoms of urinary infection at this time. Patient was previously started on oxybutynin ER and titrated up to 15 mg daily. At follow-up office visit, her PVR was 229 mL (13 mL previously). Due to incomplete emptying, she was advised to decrease dosing to 10 mg daily. Patient states that she continues to tolerate this dosing well, but does notice worsening of her incontinence open the previous dose. [1] Straight cath for PVR 11/28/23 - 215 ml At the time of prior office visit, we opted to discontinue oxybutynin ER and start Myrbetriq 25 mg daily. Patient states she is tolerating this well without side effects. Feels that it is just as effective if not slightly more effective than the oxybutynin. PVR today 16 mL. I discussed with patient that she is emptying better on this medication. We did discuss possibility of increased dosing. However, given that she has borderline kidney function would recommend continuing current dose. She is agrees. -Continue Myrbetriq 25 mg daily -Patient would like to follow-up 6 months for recheck, sooner if needed Ordered: 56809 Measure Post Void residual urine and/or bladder capacity by US- non-imaging Urnls Dip Stick Auto w/o Microscopy POC 00424 2. Incomplete bladder emptying (R33.9: Retention of urine, unspecified) see #1 Ordered: 07342 Measure Post Void residual urine and/or bladder capacity by US- non-imaging Urnls Dip Stick Auto w/o Microscopy POC 83117 3. Hydronephrosis, right (N13.30: Unspecified hydronephrosis) CT AP wo con 03/31/23 - Mild Rt hydronephrosis. Suggestion of R ureteral urothelial thickening. Diffuse bladder wall thickening. May represent recently passed ureteral stone vs cystitis. No renal stones. MAURA 07/15/23 [facility] - No R hydro. No solid L cortical mass, hydro, or obstructing L renal stones. -hydro resolved. [2] 4. Bilateral renal cysts (N28.1: Cyst of kidney, acquired) MAURA 12/2022 - tiny, simple. MAURA 07/15/23 [facility] - 1.2 cm area of anechoic echogenicity in the RUP. A simple R parapelvic cyst is favored. -Simple cysts do not require monitoring [3] 5. Chronic kidney disease stage 4 (N18.4: Chronic kidney disease, stage 4 (severe)) eGFR 04/17/2023 - 31 Ordered: 50279 Measure Post Void residual urine and/or bladder capacity by US- non-imaging Urnls Dip Stick Auto w/o Microscopy POC 97955 Follow-up With When Contact Information AALIYAH Silvestre APRN, Jo Ann Olmedo, FAM, URL Additional Instructions: 6 months Patient Education Urinary Incontinence Problem List/Past Medical History Ongoing Anemia of renal disease Anxiety Bilateral renal cysts BMI 32.0-32.9,adult Chronic kidney disease due to hypertension.. Chronic kidney disease stage 4 Combined systolic and diastolic heart failure Depression Diabetes Diverticulosis Edema of lower extremity Essential hypertension GERD (gastroesophageal reflux disease) HTN (hypertension) Hydronephrosis, right Hyperlipidemia Hypothyroidism Incomplete bladder emptying Lymphedema Migraines Mixed incontinence urge and stress Obesity Osteoporosis Schizoaffective disorder Screening for malignant neoplasm of colon Secondary hyperparathyroidism Stenosis of aorta TIA (transient ischemic attack) Vaginal yeast infection Historical Anemia Arthritis Asthma CKD stage 3 Diabetes mellitus type 2 Headache Heart murmur duration, short Hypertension Hypot (more content not included)... Normal [facility] Comment on above: Result Comment: Elec tronically Signed By: AALIYAH Silvestre APRN, Jo Ann Olmedo\.br\Date and Time Signed: 01/05/24 11:25 EDT Urology Office/Clinic Noteon 11-28-2023 Urology Office/Clinic Note Urology Office/Clinic Note Chief Complaint 6wk PVR HPI Staff 6 week f/u to decreasing Oxybutynin ER from 15mg qd to 10mg. [facility] and they stated they will send the results with the pt. Dx: mixed incontinence, incomplete bladder emptying and bilateral renal cysts. PVR (done @ [facility]) 11/23/13 (1357)150ml 11/24/23 (1358) 279ml Leaking has [...] with voice recognition artificial intelligence software, specifically MeeWee, [employer]angible and or [employer]am[employer]. Substitutions may have occurred due to the [...] of her incontinence open the previous dose. [facility] did complete PVR yesterday prior to patient's [...] blood pressure checked more routinely at the [facility] to ensure that she is not getting hypertension as a result of medication. Order sent with patient. -Start Myrbetriq -Follow-up 8 weeks with PVR Ordered: 11657 Insert/non-indwelling bladder cath E&M of Est. Patient Moderate 30-39 Min 53246 2. Vaginal yeast infection (B37.31: Acute candidiasis [...] cream. Discussed side effects. -Start Diflucan Ordered: 32935 Insert/non-indwelling bladder cath E&M of Est. Patient Moderate 30-39 Min 94462 3. Incomplete bladder emptying (R33.9: Retention of urine, unspecified) see #1 Ordered: 82598 Insert/non-indwelling bladder cath E&M of Est. Patient Moderate 30-39 Min 95890 4. Hydronephrosis, right (N13.30: Unspecified hydronephrosis) CT AP wo con 03/31/23 - Mild Rt hydronephrosis. Suggestion of R ureteral urothelial thickening. Diffuse bladder wall thickening. May represent recently passed ureteral stone vs cystitis. No renal stones. MAURA 07/15/23 [facility] - No R hydro. No solid L cortical mass, hydro, or obstructing L renal stones. -hydro resolved. [1] Ordered: 64633 Insert/non-indwelling bladder cath E&M of Est. Patient Moderate 30-39 Min 68562 5. Bilateral renal cysts (N28.1: Cyst of kidney, acquired) MAURA 12/2022 - tiny, simple. MAURA 07/15/23 [facility] - 1.2 cm area of anechoic echogenicity in the RUP. A simple R parapelvic cyst is favored. -Simple cysts do not require monitoring [2] Ordered: 07341 Insert/non-indwelling bladder cath E&M of Est. Patient Moderate 30-39 Min 08973 Follow-up No qualifying (more content not included)... Normal [facility] Comment on above: Result Comment: Elec tronically Signed By: AALIYAH Silvestre APRN, [place] X\.chin\Date and Time Signed: 11/28/23 11:45 EDT Ambulatory Visit Summaryon 0 11-24-2023 Ambulatory Visit Summary Ambulatory Visit Summary AVILA VILLA :1950 Visit Date:11/24/2023 Ambulatory Visit Instructions Your [...] ferrous sulfate furosemide (furosemide 20 mg Tab) hydrochlorothiazide-li sinopril (hydrochlorothiazide-l isinopril 12.5 mg-20 mg Tab) magnesium oxide (magnesium [...] APRN, [place] X Where: [facility] [address] [place] [address]- Medications What How Much When Instructions Unchanged [...] prescribing physician if questions or concerns Unchanged hydrochlorothiazide-li sinopril (hydrochlorothiazide-l isinopril 12.5 mg-20 mg Tab) 1 Tablets By [...] currently receivin (more content not included)... Normal [facility] Laboratory - Chemistry and C hemistry - challengeon 11-17-2023 Bilirubin Ql (U) Negative NEGATIVE [facility] Glucose (U) [Mass/Vol] Negative NEGATIVE [facility] Ketones Ql (U) Negative NEGATIVE [facility] pH (U) 6.0 [pH] 5.0-9.0 [facility] Specific gravity (U) [Rel density] 1.010 1.005-1.025 [facility] Urobilinogen Qn (U) 0.2 {Roberta'U}/dL 0.2-1.0 [facility] Laboratory - Specimen inform ationon 11-17-2023 Appearance (U) CLEAR CLEAR [facility] Color (U) LT. YELLOW YELLOW [facility] Laboratory - Urinalysison Leukocyte esterase Test strip Ql (U) TRACE Abnormal NEGATIVE [facility] Mucus Ql (Urine sed) NONE SEEN NONE SEEN [facility] Nitrite Ql (U) Negative NEGATIVE [facility] Protein Ql (U) Negative NEG/TRACE [facility] No Panel Informationon 11-16 Urine Bacteria TRACE #/HPF Abnormal NONE SEEN [facility] Urine Microscopic Review YES [facility] Urine Occult Blood Negative NEGATIVE [facility] Urine Other Casts NONE SEEN #/LPF NONE SEEN [facility] Urine Other Crystals None Seen #/HPF None Seen [facility] Urine Random Creatinine 19.39 mg/dL Low 20.00-300.00 [facility] Urine Random Total Protein <6.0 mg/dL <=11.9 [facility] Urine RBC 0-2 #/HPF 0-2 [facility] Urine Squamous Epithelial Cells RARE #/LPF NONE/RARE [facility] Urine WBC 2-5 #/HPF Abnormal NONE SEEN [facility] Urine protein/creatinine rat ioon 07-23-2024 Protein/Creatinine (U) [Ratio] 0.31 [facility] Basophils Auto (Bld) [#/Vol] on 11-16-2023 Basophils (Bld) [#/Vol] 0.0 10 3/uL 0.0-0.1 [facility] Basophils/100 WBC Auto (Bld) on 11-16-2023 Basophils/100 WBC (Bld) 0.3 % 0.2-2.0 [facility] Eosinophils/100 WBC Auto (Bl d)on 11-16-2023 Eosinophils/100 WBC (Bld) 2.4 % 0.9-7.0 [facility] Erythrocyte distribution wid th Auto (RBC) [Ratio]on 11-16-2023 Erythrocyte distribution width (RBC) [Ratio] 13.8 % 11.0-15.0 [facility] Estimated glomerular filtrat ion rate (GFR) non- Americanon 11-16-2023 GFR/1.73 sq M.predicted among non-blacks MDRD (S/P/Bld) [Vol rate/Area] 31 mL/min/{1.73_m2} Low >=60 [facility] Hematocrit Auto (Bld) [Volum e fraction]on 11-16-2023 Hematocrit (Bld) [Volume fraction] 33.1 % Low 36.0-48.0 [facility] Hemoglobin [Mass/volume] in Bloodon 11-16-2023 Hemoglobin (Bld) [Mass/Vol] 10.2 g/dL Low 12.0-16.0 [facility] Iron binding capacity [Mass/ volume] in Serum or Plasmaon 11-16-2023 Iron binding capacity [Mass/Vol] 202.0 ug/dL Low 250.0-450.0 [facility] Iron saturation [Mass Fracti on] in Serum or Plasmaon 11-16-2023 Iron saturation [Mass fraction] 29.7 % [facility] Laboratory - Chemistry and C hemistry - challengeon 11-16-2023 Albumin [Mass/Vol] 3.3 g/dL Low 3.4-5.0 [facility] Calcium [Mass/Vol] 9.2 mg/dL 8.5-10.1 [facility] Chloride [Moles/Vol] 102 mmol/L 98-107 [facility] CO2 [Moles/Vol] 28.8 mmol/L 21.0-32.0 [facility] Creatinine [Mass/Vol] 1.61 mg/dL High 0.55-1.02 [facility] Ferritin [Mass/Vol] 278.0 ng/mL High 8.0-252.0 [facility] GFR/1.73 sq M.predicted MDRD (S/P/Bld) [Vol rate/Area] 38 mL/min/{1.73_m2} Low >=60 [facility] Glucose [Mass/Vol] 147 mg/dL High 74-106 [facility] Iron [Mass/Vol] 60.0 ug/dL 50.0-170.0 [facility] Magnesium [Mass/Vol] 1.8 mg/dL 1.8-2.4 [facility] Potassium [Moles/Vol] 4.0 mmol/L 3.5-5.1 [facility] Sodium [Moles/Vol] 140 mmol/L 136-145 [facility] Urate [Mass/Vol] 6.6 mg/dL High 2.6-6.0 [facility] Urea nitrogen [Mass/Vol] 51.0 mg/dL High 7.0-18.0 [facility] Urea nitrogen/Creatinine [Mass ratio] 31.7 mg/mg [facility] Laboratory - Hematology and Cell countson 11-16-2023 Immature granulocytes/100 WBC (Bld) 0.3 % 0.0-0.5 [facility] Leukocytes [#/volume] correc bogdan for nucleated erythrocytes in Blood by Automated counon 11-16-2023 WBC corrected for nucl RBC Auto (Bld) [#/Vol] 7.5 10 3/uL 4.0-11.0 [facility] Lymphocytes Auto (Bld) [#/Vo l]on 11-16-2023 Lymphocytes (Bld) [#/Vol] 2.2 10 3/uL 1.2-3.8 [facility] Lymphocytes/100 WBC Auto (Bl d)on 11-16-2023 Lymphocytes/100 WBC (Bld) 29.1 % 20.5-60.0 [facility] MCH Auto (RBC) [Entitic mass ]on 11-16-2023 MCH (RBC) [Entitic mass] 28.0 pg 26.7-34.0 [facility] MCHC Auto (RBC) [Mass/Vol]on 11-16-2023 MCHC (RBC) [Mass/Vol] 30.8 g/dL 29.9-35.2 [facility] MCV Auto (RBC) [Entitic vol] on 11-16-2023 MCV (RBC) [Entitic vol] 90.9 fL 81.0-99.0 [facility] Monocytes Auto (Bld) [#/Vol] on 11-16-2023 Monocytes (Bld) [#/Vol] 0.7 10 3/uL 0.3-0.8 [facility] Monocytes/100 WBC Auto (Bld) on 11-16-2023 Monocytes/100 WBC (Bld) 9.7 % 1.7-12.0 [facility] Neutrophils Auto (Bld) [#/Vo l]on 11-16-2023 Neutrophils (Bld) [#/Vol] 4.4 10 3/uL 1.4-6.5 [facility] Neutrophils/100 WBC Auto (Bl d)on 11-16-2023 Neutrophils/100 WBC (Bld) 58.2 % 43.0-75.0 [facility] No Panel Informationon 11-15 25-Hydroxy Vitamin D Total 90.5 ng/mL [facility] Comment on above: <20 ng/mL Vit D defi cient20-<30 ng/mL Vit D onfamwqxxotz83-966 ng/mL Vit D sufficient>100 ng/mL Potential Toxicity Eosinophils # (Auto) 0.2 10 3/uL 0.0-0.7 [facility] Immature Granulocyte # (Auto) 0.02 10 3/uL 0.00-0.03 [facility] Parathyroid Hormone (Intact) 59 pg/mL 15-65 [facility] Comment on above: Performed at: [address] [id number] Director: Alex العلي PhD, Phone: [phone] Phosphorus Level 4.3 mg/dL 2.6-4.7 [facility] Platelet mean volume Auto (B ld) [Entitic vol]on 11-16-2023 Platelet mean volume (Bld) [Entitic vol] 11.2 fL 9.5-13.5 [facility] Platelets Auto (Bld) [#/Vol] on 11-16-2023 Platelets (Bld) [#/Vol] 221 10 3/uL 150-450 [facility] RBC Auto (Bld) [#/Vol]on RBC (Bld) [#/Vol] 3.64 10 6/uL Low 4.20-5.40 [facility] Serum or plasma anion gap de terminationon 11-16-2023 Anion gap [Moles/Vol] 13.2 mmol/L [facility] Screenson 10-14-2023 Screens [id number]. [id number] Normal [facility] Ambulatory Visit Summaryon 0 10-13-2023 Ambulatory Visit Summary AVILA VILLA :1950 Visit Date:10/13/2023 Ambulatory Visit Instructions Your [...] ferrous sulfate furosemide (furosemide 20 mg Tab) hydrochlorothiazide-li sinopril (hydrochlorothiazide-l isinopril 12.5 mg-20 mg Tab) magnesium oxide (magnesium [...] Where: [facility] Recordson 10-12 [facility] Records [id number]#[id number] 0TIFF [facility] Patient Educationon 10-13-19 Patient Education Obstetrics and [...] health care provider. General instructions ? Take [id number] and prescription medicines only as told by [...] monitor yo (more content not included)... Normal [facility] Urology Office/Clinic Noteon 10-13-2023 Urology Office/Clinic Note Chief Complaint 3 month F/U HPI Staff 3m to starting Oxybutynin therapy.- Still taking with no problems DX: Mixed incontinence, BL Renal Cysts, Rt Hydronephrosis MAURA 07/15/23 *No Eagar. 1.2cm Rt Renal Parapelvic Simple Cyst. B&BSQ [...] w/ PVR & reassess sx control Ordered: 69540 Measure Post Void residual urine and/or bladder capacity by US- non-imaging Complex E&M Add on G2211 E&M of Est. Patient Moderate 30-39 Min 22711 Urnls Dip Stick Auto w/o Microscopy POC 95005 2. Incomplete bladder emptying (R33.9: Retention of [...] obstructing L renal stones. -hydro resolved. Ordered: 34345 Measure Post Void residual urine and/or bladder capacity by US- non-imaging Complex E&M Add on G2211 E&M of Est. Patient Moderate 30-39 Min 12660 Urnls Dip Stick Auto w/o Microscopy POC 80836 4. Bilateral renal cysts (N28.1: Cyst of kidney, acquired) MAURA 12/2022 - tiny, simple. MAURA 07/15/23 [facility] - 1.2 cm area of anechoic echogenicity in the RUP. A simple R parapelvic cyst is favored. -Simple cysts do not require monitoring Ordered: 42837 Measure Post Void residual urine and/or bladder capacity by US- non-imaging Complex E&M Add on G2211 E&M of Est. Patient Moderate 30-39 Min 62005 Urnls Dip Stick Auto w/o Microscopy POC 27098 Orders: oxybutynin, 10 mg = 1 tab(s), Oral, Daily, # 30 tab(s), Refills(s) 11, Pharmacy: [facility], 152.2, cm, 10/13/23 10:01:00 EDT, Height/Length Dosing, 80.6, kg, 10/13/23 10:01:00 EDT, Weight Dosing Follow-up With When Contact Information LAITH YI, VIVI Palacios, URL [address] [place] [address] [phone] Additional Instructions: 6 wks w/ PVR Patient Education Overactive Bladder, Adult Documentation recorded by the scribphilip Jimenez accurately reflects the services(s) I performed [...] disorder Screenin (more content not included)... Normal [facility] Comment on above: Result Comment: Elec tronically Signed By: VIVI OZUNA PA-C\.br\Date and Time Signed: 10/13/23 10:58 EDT\.br\Electronically Co-Signed By: Janet Jimenez\.br\Date and Time Co-Signed: 10/13/23 10:42 EDT RAD - Ultrasound Reporton RAD - Ultrasound Report [id number] 0TIFF [facility] Lab Reportson 07-03-2023 Lab Reports [id number]. 00TIFF Normal [facility] Lab Reports [id number]. 00TIFF Normal [facility] Physician Referralon 024 Physician Referral [id number] 05 [id number]#1. 00TIFF Normal [facility] RAD - CT Reporton 07-03-2023 RAD - CT Report [id number] 05 [id number]#1. 00TIFF Normal [facility] RAD - Ultrasound Reporton RAD - Ultrasound Report [id number]#1. 00TIFF Normal [facility] Screenson 07-03-2023 Screens [id number] 0TIFF Normal [facility] Chcf Recordson 06-30 Chcf Records [id number]#1.0 0TIFF Normal [facility] Ambulatory Visit Summaryon 0 06-30-2023 Ambulatory Visit Summary AVILA VILLA :1950 Visit Date:06/30/2023 Ambulatory Visit Instructions Your [...] ferrous sulfate furosemide (furosemide 20 mg Tab) hydrochlorothiazide-li sinopril (hydrochlorothiazide-l isinopril 12.5 mg-20 mg Tab) magnesium oxide (magnesium [...] prescribing physician if questions or concerns Unchanged hydrochlorothiazide-li sinopril (hydrochlorothiazide-l isinopril 12.5 mg-20 mg Tab) 1 Tablets By [...] Hypothyroidism Lymphed (more content not included)... Normal [facility] Patient Educationon 06-30-19 Patient Education Nutrition BMI [...] numbers. This can be done either in [place]i ([place] or metric measurements. Note that charts and online BMI calculators are available to help you find your BMI quickly and easily without having to do these calculations yourself. To calculate your BMI in Somali ([place] measurements: 1. Measure your weight in [...] for Disease Control and Prevention: www.cdc.gov ? [place] Heart Association: www.heart.org ? National Heart, Lung, and Blood [place]: www.nhlbi.nih.gov Summary ? Body mass index (BMI) is a number that is calculated from a person's weight and height. ? BMI may help estimate how much of a person's weight is composed of fat. BMI can help identify those who may be at higher risk for certain medical problems. ? BMI can be measured using Somali measurements or metric measurements. ? BMI charts are used to identify whether you are underweight, normal weight, overweight, or obese. This information is not intended to replace advice given to you by your health care provider. Make sure you discuss any questions you have with your health care provider. Document Revised: 01/04/2020 Document Reviewed: 11/11/2019 [employer] Patient Education ? 2022 [employer]. [facility] Urology Office/Clinic Noteon 06-30-2023 Urology Office/Clinic Note [...] lowest daily dose and slowly titrate up Y8dyozl as pt tolerates. I explained the most [...] go into elaborate detail, would address full risks/benefits/details of procedure prior to scheduling. Ordered: 62612 Measure Post Void residual urine and/or bladder capacity by US- non-imaging E&M of Est. Patient High 40-54 Min 69766 2. Bilateral renal cysts (N28.1: Cyst of kidney, acquired) MAURA Sept 2022 tiny, simple -no additional workup needed Ordered: E&M of Est. Patient High 40-54 Min 20285 US Renal 3. Hydronephrosis, right (N13.30: Unspecified [...] E&M of Est. Patient High 40-54 Min 32679 US Renal 4. BMI 34.0-34.9,adult (Z68.34: Body mass index [BMI] 34.0-34.9, adult) healthy diet encouraged Ordered: E&M of Est. Patient High 40-54 Min 57019 Orders: Body Mass Index (BMI) documented 3008F [...] Urnls Dip Stick Auto w/o Microscopy POC 63958 Total time spent reviewing previous notes/results/external documents, prepar (more content not included)... Normal [facility] Comment on above: Result Comment: Elec tronically Signed By: VIVI OZUNA PA-C\.chin\Date and Time Signed: 06/30/23 12:51 EST Consent for Procedure/Surger yon 06-26-2023 Consent for Procedure/Surgery [id number]#1.0 0TIFF [facility] Ambulatory Visit Summaryon 0 06-24-2023 Ambulatory Visit Summary BIANCA AVILA Philip :1950 Visit Date:06/24/2023 Ambulatory Visit Instructions Your Care Team Attending Physician - REBECCA KILLIAN, Doug Calvillo Primary Care Physician - PRO JEAN CNP Referring Physician - FRANDY ROLLINS MD This Is Your Medications List Contact prescribing physician if questions or concerns alendronate (alendronate 70 mg oral tablet) aspirin (aspirin 81 mg Oral EC Tab) brexpiprazole (Rexulti 0.5 mg oral tablet) cholecalciferol (Vitamin D3) ferrous sulfate furosemide (furosemide 20 mg Tab) hydrochlorothiazide-li sinopril (hydrochlorothiazide-l isinopril 12.5 mg-20 mg Tab) magnesium oxide (magnesium [...] Follow-Up Appointments Thursday 10:00 AM EST With: LAITH YI, VIVI Palacios Where: [facility] Facesheeton 06-24-2023 Facesheet [id number] 03 [id number]#1. 00TIFF [facility] Physician Referralon 024 Physician Referral [id number] 10 [id number]#1.0 0TIFF [facility] ABO/Rh History Checkon 04-18 ABO/Rh History Check Patient discharged prior [facility] Comment on above: Performed By: #### 1 [id number], 6681337, 32455625, 28635448 ####[facility] [address] [place] [address] CT Head or Brain w/o Contras ton [...] Technologist: QUINCY Technical Comments Contrast: None Normal [facility] CT Spine Cervical w/o Contra ston 04-18-2023 [...] V. Transcribed by: GREG Technologist: QUINCY Normal [facility] Discharge Instructionson Discharge Instructions [id number]#1. 00TIFF Normal [facility] ED Clinical Summaryon 2022 ED Clinical Summary [place] [address] ED Clinical Summary Person Information Name: AVILA VILLA [facility] Age: 73 Years : 1950 Sex: Female Language: Somali PCP: RICHARD VARGAS MD Marital Status: Single [...] 04/18/2023 00:43:24 04/18/2023 00:43:24 04/18/2023 00:43:24 ADDRESS: [address] [place] [address] [place] [address] [phone] PHYS DOC NOTES: MEDICAL INFORMATION: Prescriptions Given: [...] Follow up: With: Address: When: RICHARD VARGAS [address] [place] [address] Business (1) In 3 days 04/20/2023 Comments: Follow-up with your primary care provider in 3 to 5 days. If symptoms worsen, do not improve, or new symptoms arise please report back to emergency department for further evaluation. DIAGNOSIS: Closed head injury; Fall Normal [facility] ED Note-Physicianon 04-18-20 ED Note-Physician Basic Information [...] and Complexity of Problems Differential Diagnosis: [] [facility] Data External documents reviewed: [] My [...] RICHARD VARGAS In 3 days 04/20/2023 EST [address] [place] [address]- [facility] (1) Additional Instructions: Follow-up with your primary care provider in 3 to 5 days. If symptoms worsen, do not improve, or new symptoms arise please report back to emergency department for further evaluation. Patient Education Head Injury, Adult Attestation Patient seen (more content not included)... Normal [facility] Comment on above: Result Comment: Elec tronically [...] Ask your health care provider for a qmqx-ul-yyek plan for gradually returning to activities. ? [...] your friends, family, a trusted colleague, and sanitation worker about your injury, symptoms, and restrictions. Have them watch for any new or worsening problems. General instructions ? Take xfsk-cct-xxxnfdb and prescription medicines only as told by your health care provider. ? Have someone stay with you for 24 hours after your head injury. This person should watch you for any changes in your symptoms and be ready to seek medical help. ? Keep all follow-up visits as told by your health care pr (more content not included)... Normal [facility] ED Patient Summaryon 023 ED Patient Summary [place] [id number] Patient Discharge Instructions Person Information Name: AVILA VILLA Age: 73 Years Arrival Date: 04/17/2023 20:26:34 Discharge Diagnosis: Closed head injury; Fall Primary Care Physician: SAM KILLIAN, RICHARD Yu Provider Information Primary Provider: Nancy Stern DO Advanced Residential Care Officer:None The exam and treatment you received in the Emergency Department were for an urgent problem and are not intended as complete care. It is important that you follow up with a doctor, nurse practitioner, or physician?s graduate teaching assistant for ongoing care. If your symptoms [...] Follow-up Instructions: With: Address: When: RICHARD SAM [address] [place], [place] [id number] [place] (1) In 3 days 04/20/2023 Comments: Follow-up [...] opioids can be used to help relieve mtjthble-da-egjceu pain and are often prescribed following a [...] guidance from the Food and Drug Administration (www.fda.gov/Drugs/Res ourcesForYou). ? Visit www.cdc.gov/drugoverdo se to learn about the risks of opioids abuse and overdose. ? If you (more content not included)... Normal [facility] ED Traumaon 04-18-2023 ED Trauma [id number] 06 [id number]#1. 00TIFF Normal [facility] ABO/Rhon 04-17-2023 ABO/Rh Positive Invalid Interpretation Code [facility] Comment on above: Performed By: #### 1 [id number], 8200809, 62478400, 80112346 ####[facility] [address] [place] [address] ABSCon 04-17-2023 ABSC Gel Interp Negative Normal [facility] Comment on above: Performed By: #### 1 4124037, 8337217, 95269142, 14797370 ####[facility] [address] [place] [address] Auto Diffon 04-17-2023 Basophils/100 WBC (Bld) 1.2 % Normal 0.0-2.0 [facility] Comment on above: Order Comment: Order Added by Discern Expert. Performed By: #### 1 3317688, 7544328, 5810768, 4207511, 9697879, 0143767, 7869747, 64015356, 9245220 #### [facility] [address] [place] [address] Basophils/Leukocytes Auto (Bld) [Pure # fraction] 0.1 E9/L Normal 0.0-0.2 [facility] Comment on above: Order Comment: Order Added by Discern Expert. Performed By: #### 1 1320118, 2342577, 3858967, 6581297, 3523339, 8405565, 7952605, 40475712, 9957162 #### [facility] [address] [place] [address] Eosinophils/100 WBC (Bld) 1.3 % Normal 0.0-8.0 [facility] Comment on above: Order Comment: Order Added by Discern Expert. Performed By: #### 1 2526999, 5801806, 0129379, 4257452, 3745345, 3184947, 1457417, 14164472, 2577546 #### [facility] [address] [place] [address] Eosinophils/Leukocyte s Auto (Bld) [Pure # fraction] 0.1 E9/L Normal 0.0-0.5 [facility] Comment on above: Order Comment: Order Added by Discern Expert. Performed By: #### 1 8306312, 6825213, 3855397, 8995502, 8464878, 8821323, 7923290, 78407073, 2804455 #### [facility] [address] [place] [address] Lymphocytes/100 WBC (Bld) 23.6 % Normal 14.0-50.0 [facility] Comment on above: Order Comment: Order Added by Discern Expert. Performed By: #### 1 3006321, 9216856, 5457741, 6988537, 8813436, 8079833, 2201231, 75316184, 2703544 #### [facility] [address] [place] [address] Lymphocytes/Leukocyte s Auto (Bld) [Pure # fraction] 1.8 E9/L Normal 1.0-4.0 [facility] Comment on above: Order Comment: Order Added by Discern Expert. Performed By: #### 1 3393112, 5438715, 3786977, 2578643, 3410913, 1159409, 7481106, 52799852, 1404580 #### [facility] [address] [place] [address] Monocytes/100 WBC (Bld) 10.1 % Normal 4.0-14.0 [facility] Comment on above: Order Comment: Order Added by Jason Expert. Performed By: #### 1 8895945, 7452607, 2108921, 0299685, 7021604, 1399892, 4354487, 71379099, 0685559 #### [facility] [address] [place] [address] Monocytes/Leukocytes Auto (Bld) [Pure # fraction] 0.8 E9/L Normal 0.2-1.0 [facility] Comment on above: Order Comment: Order Added by Discern Expert. Performed By: #### 1 7803747, 1415429, 4184285, 9454148, 1414537, 0274290, 4207356, 48206004, 2358492 #### [facility] [address] [place] [address] Neutrophils/100 WBC (Bld) 63.8 % Normal 36.0-75.0 [facility] Comment on above: Order Comment: Order Added by Discern Expert. Performed By: #### 1 5239764, 3946064, 1870940, 6388215, 2818962, 5085638, 2209288, 76537060, 7294775 #### [facility] [address] [place] [address] Neutrophils/Leukocyte s Auto (Bld) [Pure # fraction] 4.9 E9/L Normal 2.0-7.5 [facility] Comment on above: Order Comment: Order Added by Discern Expert. Performed By: #### 1 4618795, 7510212, 2527440, 5120208, 0086775, 4363324, 3501697, 31573166, 3894995 #### [facility] [address] [place] [address] BLOOD BANKOrdered By: Karina Stafford on 04-17-2023 ABO/Rh Interp Positive Invalid Interpretation Code [facility] BB Subsection ABSC Gel Interp Negative (04/17/23 8:42 PM) Normal [facility] BB Subsection BMPon 04-17-2023 Anion gap [Moles/Vol] 14 mmol/L Normal 6-16 [facility] Comment on above: Performed By: #### 1 7098567, 6440481, 6269268, 4588307, 0472341, 9342319, 8198482, 68760840, 5953445 ####[facility] [address] [place] [address] BUN/Creat Ratio 21 No Units High 10-20 [facility] Comment on above: Performed By: #### 1 2805455, 7324306, 4683711, 7090076, 9151074, 2635445, 0240494, 67377194, 2065042 ####[facility] [address] [place] [address] Calcium [Mass/Vol] 9.6 mg/dL Normal 8.9-11.1 [facility] Comment on above: Performed By: #### 1 1682978, 3852585, 5211054, 3930933, 5779194, 9001270, 3879440, 14701803, 2409098 ####[facility] [address] [place] [address] Chloride [Moles/Vol] 104 mmol/L Normal 101-111 [facility] Comment on above: Performed By: #### 1 7446036, 5423619, 1817877, 6517180, 5392235, 1599449, 4925911, 85599292, 4960395 ####[facility] [address] [place] [address] CO2 [Moles/Vol] 28 mmol/L Normal 21-31 [facility] Comment on above: Performed By: #### 1 3939425, 4298432, 1876943, 7659315, 1502156, 5751906, 0591109, 60577785, 7878277 ####[facility] [address] [place] [address] Creatinine [Mass/Vol] 1.7 mg/dL High 0.5-1.3 [facility] Comment on above: Performed By: #### 1 7276846, 0079340, 3377217, 7878295, 9179018, 4375125, 3300706, 37357977, 9147593 ####[facility] [address] [place] [address] Glucose [Mass/Vol] 135 mg/dL Normal 55-199 [facility] Comment on above: Performed By: #### 1 7785045, 1071197, 3626385, 0720955, 2613193, 8102912, 8708720, 71944290, 4879065 ####[facility] [address] [place] [address] Potassium [Moles/Vol] 3.7 mmol/L Normal 3.5-5.3 [facility] Comment on above: Performed By: #### 1 8811554, 1321064, 2523120, 4635593, 1953160, 8009599, 8913085, 32500692, 9134801 ####[facility] [address] [place] [address] Sodium [Moles/Vol] 142 mmol/L Normal 135-145 [facility] Comment on above: Performed By: #### 1 2687322, 7958451, 0767298, 4052458, 2606850, 9533411, 8066583, 21418768, 7983645 ####[facility] [address] [place] [address] Urea nitrogen [Mass/Vol] 36 mg/dL High 5-21 [facility] Comment on above: Performed By: #### 1 1723680, 2472065, 7209122, 7802282, 4748665, 2087039, 9101379, 21866434, 2420895 ####[facility] [address] [place] [address] Blood Bank ID#on 04-17-2023 BBID# [id number] Invalid Interpretation Code [facility] Comment on above: Performed By: #### 1 1688175, 4465754, 25046810, 43513039 ####[facility] [address] [place] [address] CBC w/ Auto Diffon 3 Erythrocyte distribution width (RBC) [Ratio] 13.8 % Normal 10.9-14.2 [facility] Comment on above: Performed By: #### 1 6616968, 3594830, 9356978, 7539120, 9754815, 9490186, 8669254, 18273339, 4303462 #### [facility] [address] [place] [address] Hematocrit (Bld) [Volume fraction] 31.5 % Low 34.0-46.0 [facility] Comment on above: Performed By: #### 1 4157725, 2015406, 4129970, 3736167, 1105436, 7455048, 4893047, 42523308, 2128132 #### [facility] [address] [place] [address] Hemoglobin (Bld) [Mass/Vol] 10.1 g/dL Low 12.0-16.0 [facility] Comment on above: Performed By: #### 1 7498815, 9695186, 8200206, 5231927, 4996625, 3539677, 6554551, 84727672, 1177088 #### [facility] [address] [place] [address] MCH (RBC) [Entitic mass] 29.4 pg Normal 27.0-34.0 [facility] Comment on above: Performed By: #### 1 8466769, 2310505, 6096133, 0246757, 8250377, 3463168, 9680895, 42055852, 2272056 #### [facility] [address] [place], [place] [address] MCHC (RBC) [Mass/Vol] 32.1 g/dL Normal 31.4-36.0 [facility] Comment on above: Performed By: #### 1 0432757, 3767835, 6649302, 2156659, 7822426, 6236431, 5346000, 26633842, 9051671 #### [facility] [address] [place], [place] [address] MCV (RBC) [Entitic vol] 91.4 fL Normal 80.0-100.0 [facility] Comment on above: Performed By: #### 1 0481536, 3833545, 4839116, 2495683, 3985464, 2662434, 4687358, 93759588, 2711472 #### [facility] [address] [place] [address] Platelet mean volume (Bld) [Entitic vol] 8.9 fL Normal 6.4-10.8 [facility] Comment on above: Performed By: #### 1 9993485, 8239231, 4472595, 5173283, 1501665, 1639390, 3191362, 55890942, 6657748 #### [facility] [address] [place] [address] Platelets (Bld) [#/Vol] 271.0 E9/L Normal 150.0-500.0 [facility] Comment on above: Performed By: #### 1 7006946, 4002934, 5804832, 2732953, 1750124, 4320716, 9414090, 25003613, 5669266 #### [facility] [address] [place] [address] RBC (Bld) [#/Vol] 3.4 E12/L Low 4.3-5.9 [facility] Comment on above: Performed By: #### 1 0540651, 6749144, 0296433, 7531831, 5923471, 1445064, 2476441, 22981042, 8255863 #### [facility] [address] [place] [address] WBC corrected for nucl RBC Auto (Bld) [#/Vol] 7.7 E9/L Normal 4.0-11.0 [facility] Comment on above: Performed By: #### 1 1935426, 7278554, 5803933, 9070572, 1413888, 3263887, 0562401, 53067841, 4325868 #### [facility] [address] [place] [address] CHEMISTRYOrdered By: Autumn Renteria on 04-17-2023 U [...] 32.6 s Normal 25.1 - 36.5 second(s) [facility] Auto Coag Comment on above: Interpretive Data: P delfinametlazaro 15 days - 4 weeks 1 - [...] the same coagulation reagent and instrumentation as [facility]. Currently there are no coagulation studies available worldwide for children to 14 days, and no normal ranges. Heparin therapeutic range (represented by Anti-Factor Xa activity of 0.2 - 0.4 U/mL) corresponds to PTT of 56.6 - 109.0 sec. INR Coag (PPP) [Relative time] 1.2 {INR} Invalid Interpretation Code [facility] Auto Coag Comment on above: Interpretive Data: I NR results are specifically intended to assess patients stabilized on long-term Anticoagulation therapy suggested INR s Less Intensive Anticoagulation 2.0 3.0 Conventional Range 3.0 4.5 PT Coag (PPP) [Time] 13.1 s High 9.4 - 1 2.5 second(s) [facility] Auto Coag Comment on above: Interpretive [...] the same coagulation reagent and instrumentation as [facility]. Currently there are no coagulation studies available worldwide for children to 14 days, and no normal ranges. Consent for Treatmenton 03-28 Consent for Treatment [id number] [id number]#1.0 0TIFF Normal [facility] Ethanolon 04-17-2023 Ethanol Lvl 83 mg/dL Abnormal <=7 [facility] Comment on above: Result Comment: Crit ical Result S_ETOH:[id number] Called to and read back by: TAI BARBA at: 04/17/2023 21:19:24 by:CADY RENTERIA Critical Result Verified by Repeat Analysis Performed By: #### 2 345798 #### [facility] [address] [place] [address] HEMATOLOGYOrdered By: SYSTEM SYSTEM on 04-17-2023 Basophils/100 WBC (Bld) 1.2 % Normal 0.0 - 2.0 % [facility] HemeAutoSS Basophils/Leukocytes Auto (Bld) [Pure # fraction] 0.1 E9/L Normal 0.0 - 0.2 E9/L [facility]eAuto[facility] Eosinophils/100 WBC (Bld) 1.3 % Normal 0.0 - 8.0 % [facility] HemeAutoSS Eosinophils/Leukocyte s Auto (Bld) [Pure # fraction] 0.1 E9/L Normal 0.0 - 0.5 E9/L [facility] HemeAutoSS Lymphocytes/100 WBC (Bld) 23.6 % Normal 14.0 - 50.0 % [facility] HemeAutoSS Lymphocytes/Leukocyte s Auto (Bld) [Pure # fraction] 1.8 E9/L Normal 1.0 - 4.0 E9/L [facility]eAutoSS Monocytes/100 WBC (Bld) 10.1 % Normal 4.0 - 14.0 % [facility] HemeAutoSS Monocytes/Leukocytes Auto (Bld) [Pure # fraction] 0.8 E9/L Normal 0.2 - 1.0 E9/L [facility]Auto[facility] Neutrophils/100 WBC (Bld) 63.8 % Normal 36.0 - 75.0 % [facility] HemeAutoSS Neutrophils/Leukocyte s Auto (Bld) [Pure # fraction] 4.9 E9/L [...] 04-17-2023 Albumin [Mass/Vol] 4.1 g/dL Normal 3.3-5.0 [facility] Comment on above: Performed By: #### 1 1935305, 4220157, 5186342, 0330941, 4843955, 9623917, 6783714, 65871375, 7274542 ####[facility] [address] [place] [address] Albumin/Globulin [Mass ratio] 1.2 {ratio} Normal 1.1-2.2 [facility] Comment on above: Performed By: #### 1 3114980, 7371514, 4643291, 8368439, 9467896, 2015009, 4200584, 71543221, 1087054 ####[facility] [address] [place] [address] Alk Phos 68 Int._Unit/L Normal 21-98 [facility] Comment on above: Performed By: #### 1 3656527, 0977794, 7530488, 5555207, 3260644, 9485571, 0305337, 36939111, 5153465 ####[place] [address] [place] [address] ALT 14 Int._Unit/L Normal 6-46 [facility] Comment on above: Performed By: #### 1 0460013, 4726476, 6011930, 9109600, 9307390, 4251890, 6782442, 06857127, 7803107 ####[facility] [address] [place] [address] AST 14 Int._Unit/L Normal 5-43 [facility] Comment on above: Performed By: #### 1 5571773, 1243623, 7244951, 4803189, 0690008, 6202383, 0598241, 45856354, 1415848 ####[facility] [address] [place] [address] Bili Direct 0.2 mg/dL Normal 0.0-0.4 [facility] Comment on above: Performed By: #### 1 5375926, 5200244, 4444213, 5862286, 0192861, 2685542, 1250331, 67600064, 7012779 ####[facility] [address] [place] [address] Bili Indirect 0.6 mg/dL Normal 0.1-0.9 [facility] Comment on above: Performed By: #### 1 6436521, 2195275, 7119510, 3099386, 8572173, 1296468, 9968380, 67413665, 7989811 ####[facility] [address] [place] [address] Bili Total 0.8 mg/dL Normal 0.0-1.1 [facility] Comment on above: Performed By: #### 1 5176625, 4185902, 1303075, 6058999, 7445440, 9118122, 4079604, 47468657, 5979410 ####[facility] [address] [place] [address] Globulin (S) [Mass/Vol] 3.4 g/dL Normal 1.4-4.0 [facility] Comment on above: Performed By: #### 1 [id number], [id number], 3101737, 5083782, 6050821, 7329525, 9273847, 94305472, 0614837 ####[address] [place] [address] Protein [Mass/Vol] 7.5 g/dL Normal 6.0-7.8 [facility] Comment on above: Performed By: #### 1 [id number], 8461453, 5487472, 2636587, 7851585, 0838200, 3859706, 03432747, 6822303 ####[facility] [address] [place] [address] Lactic Acidon 04-17-2023 Lactic Acid Lvl 2.1 mmol/L Normal 0.5-2.2 [facility] Comment on above: Performed By: #### 1 [id number], 5784354, 3987194, 5778815, 9738205, 1550696, 6589064, 12388574, 0319124 ####[address] [place] [address] Lipase Levelon 04-17-2023 Lipase Lvl 235 unit/L High 13-58 [facility] Comment on above: Performed By: #### 1 [id number], 6085660, 5962639, 9016429, 8738398, 9930120, 5134378, 20505955, 1368337 ####[facility] [address] [place] [address] Monitor Recordon 04-17-2023 Monitor Record [id number] 20 [id number]#1. 00TIFF Normal [facility] Monitor Record [id number] 20 [id number]#1. 00TIFF Normal [facility] Monitor Record [id number] 20 [id number]#1. 00TIFF Normal [facility] PT & PTTon 04-17-2023 aPTT Coag (PPP) [Time] 32.6 second(s) Normal 25.1-36.5 [facility] Comment on above: Result Comment: Para meter [...] the same coagulation reagent and instrumentation as [facility]. Currently there are no coagulation studies available worldwide for children to 14 days, and no normal ranges. Heparin therapeutic range (represented by Anti-Factor Xa activity of 0.2 - 0.4 U/mL) corresponds to PTT of 56.6 - 109.0 sec. Performed By: #### 1 [id number], 8525509, 9375985, 2429885, 6652099, 0564532, 5507174, 90728529, 5818334 #### [facility] [address] [place] [address] INR Coag (PPP) [Relative time] 1.2 {INR} Invalid Interpretation Code [facility] Comment on above: Result Comment: INR results are specifically intended to assess patients stabilized on long-term Anticoagulation therapy suggested INR?s ?Less Intensive Anticoagulation? 2.0 ? 3.0 Conventional Range 3.0 ? 4.5 Performed By: #### 1 [id number], 6215144, 3507266, 4097481, 0492400, 2803083, 0275994, 92387724, 8860746 #### [facility] [address] [place] [address] PT Coag (PPP) [Time] 13.1 second(s) High 9.4-12.5 [facility] Comment on above: Result Comment: 15 d [...] the same coagulation reagent and instrumentation as [facility]. Currently there are no coagulation studies available worldwide for children to 14 days, and no normal ranges. Performed By: #### 1 [id number], 5012119, 7009947, 3969374, 2823112, 4054330, 0380124, 64056673, 9437206 #### [facility] [address] [place] [address] Pre-Arrival Noteon 3 Pre-Arrival Note [facility] Date: 04/17/2023 20:28:42 EST Gender: Female Date of : Age: 73 Pre-Arrival Type: EMS ETA: 04/17/2023 20:52:00 EST Primary Care Physician: Presenting Problem: Fall, Hit head Pre-Arrival User: Bernadine Littlejohn RN Referring Source: Location: [place] Completion Date/Time: 04/17/2023 20:22:00 [facility] Emergency Department Pre-Hospital Report Form Vital Signs: 107/54, 80HR, 97% RA Pre-Hospital Report: Fall, Hit head on table Treatment in Route: 2LAC Response to Treatment: Misc. Issues: Normal [facility] RAD - Preliminary Cat Scan R eporton 04-17-2023 RAD - Preliminary Cat Scan Report [id number]#1. 00TIFF Normal [facility] Troponinon 04-17-2023 Troponin 8.90 pg/mL Low 10.10-27.10 [facility] Comment on above: Result Comment: The 95% CI (Confidence Interval) PPV (Positive Predictive Value) for myocardial infarction in females is 38 pg/mL, in males 51 pg/mL. The results should be used in conjunction with clinical conditions of myocardial infarction. (Access High Sensitivity Troponin I Instructions For Use, Jessica Akaska, November 2017) Performed By: #### 1 [id number], 2286769, 8247766, 4218262, 8478338, 7138189, 0237982, 30095025, 5505886 ####[facility] [address] [place] [address] U Drug Screenon 04-17-2023 U Amph Scr Negative Invalid Interpretation Code [facility] Comment on above: Performed By: #### 2 [id number] ####[facility] [address] [place] [address] U Cookie Scr Negative Invalid Interpretation Code [facility] Comment on above: Performed By: #### 2 [id number] ####[facility] [address] [place] [address] U Benzodia Scr Negative Invalid Interpretation Code [facility] Comment on above: Performed By: #### 2 [id number] ####[facility] [address] [place] [address] U Cannab Scr Negative Invalid Interpretation Code [facility] Comment on above: Performed By: #### 2 [id number] ####[facility] [address] [place] [address] U Cocaine Scr Negative Invalid Interpretation Code [facility] Comment on above: Performed By: #### 2 856226 ####[facility] [address] [place] [address] U Opiate Scr Negative Invalid Interpretation Code [facility] Comment on above: Performed By: #### 2 536447 ####[facility] [address] [place] [address] U PCP Scr Negative Invalid Interpretation Code [facility] Comment on above: Performed By: #### 2 127301 ####[facility] [address] [place] [address] eGFRon 04-17-2023 eGFR 31 mL/min/1.73 m2 Low >=59 [facility] Comment on above: Order Comment: Order added by Discern Expert. Performed By: #### 1 [id number], 6799535, 9301477, 9647577, 7159075, 5969929, 2639573, 18678167, 7059704 ####[facility] [address] [place] [address] GLYCOHEMOGLOBIN A1Con 2022 ADA RECOMMENDATION SEE BELOW Normal [facility] Comment on above: Result Comment: ADA RECOMMENDED LIMIT 4.0 - 6.0 ADA THERAPEUTIC TARGET < 7.0 ACTION SUGGESTED > 7.0 Performed By: #### A 1C #### [facility] [address] [place] [address] Dr. Vanessa Denis Glucose [Mass/Vol] 223 mg/dL Normal [facility] Comment on above: Performed By: #### A 1C #### [facility] [address] [address] [address] Vanessa Denis HbA1c (Bld) [Mass fraction] 9.4 % Critically high 4.5-6.2 [facility] Comment on above: Performed By: #### A 1C #### [facility] [address] [address] [address] Vanessa Denis PROF 14(COMP METB)on 023 Albumin [Mass/Vol] 3.4 g/dL Normal 3.4-5.0 [facility] Comment on above: Performed By: #### C MP #### [facility] [address] [place] [address] Dr. Vanessa Denis Albumin/Globulin [Mass ratio] 0.8 {ratio} Normal [facility] Comment on above: Performed By: #### C MP #### [facility] [address] [place] [address] Dr. Vanessa Denis ALP [Catalytic activity/Vol] 71 U/L Normal 46-116 [facility] Comment on above: Performed By: #### C MP #### [facility] [address] [place] [address] Dr. Vanessa Denis ALT [Catalytic activity/Vol] 25 U/L Normal 14-59 [facility] Comment on above: Performed By: #### C MP #### [facility] [address] [place] [address] Dr. Vanessa Denis Anion gap [Moles/Vol] 6.7 mmol/L Normal [facility] Comment on above: Performed By: #### C MP #### [facility] [address] [place] [address] Dr. Vanessa Denis AST [Catalytic activity/Vol] 19 U/L Normal 15-37 [facility] Comment on above: Performed By: #### C MP #### [facility] [address] [place] [address] Dr. Vanessa Denis Bilirubin [Mass/Vol] 0.9 mg/dL Normal 0.2-1.0 [facility] Comment on above: Performed By: #### C MP #### [facility] [address] [place] [address] Dr. Vanessa Denis Calcium [Mass/Vol] 9.5 mg/dL Normal 8.5-10.1 [facility] Comment on above: Performed By: #### C MP #### [facility] [address] [address] [address] Vanessa Denis Chloride [Moles/Vol] 102 mmol/L Normal 98-107 [facility] Comment on above: Performed By: #### C MP #### [facility] [address] [place] [address] Dr. Vanessa Denis CO2 [Moles/Vol] 35.2 mmol/L Critically high 21.0-32.0 [facility] Comment on above: Performed By: #### C MP #### [facility] [address] [place] [address] Dr. Vanessa Denis Creatinine [Mass/Vol] 1.23 mg/dL Critically high 0.55-1.02 [facility] Comment on above: Performed By: #### C MP #### [facility] [address] [place] [address] Dr. Vanessa Denis EGFR-AF ZAMBIAN 52 mL/min/1.73m2 Critically low >=60 [facility] Comment on above: Performed By: #### C MP #### [facility] [address] [place] [address] Dr. Vanessa Denis EGFR-NON AF ZAMBIAN 43 mL/min/1.73m2 Critically low >=60 [facility] Comment on above: Performed By: #### C MP #### [facility] [address] [place] [address] Dr. Vanessa Denis Globulin (S) [Mass/Vol] 4.1 g/dL Normal [facility] Comment on above: Performed By: #### C MP #### [facility] [address] [place] [address] Dr. Vanessa Denis Glucose [Mass/Vol] 267 mg/dL Critically high 74-106 [facility] Comment on above: Performed By: #### C MP #### [facility] [address] [place] [address] Dr. Vanessa Denis Potassium [Moles/Vol] 4.9 mmol/L Normal 3.5-5.1 [facility] Comment on above: Performed By: #### C MP #### [facility] [address] [place] [address] Dr. Vanessa Denis Protein [Mass/Vol] 7.5 g/dL Normal 6.4-8.2 [facility] Comment on above: Performed By: #### C MP #### [facility] [address] [address] [address] Vanessa Denis Sodium [Moles/Vol] 139 mmol/L Normal 136-145 [facility] Comment on above: Performed By: #### C MP #### [facility] [address] [address] [address] Vanessa Denis Urea nitrogen [Mass/Vol] 26.0 mg/dL Critically high 7.0-18.0 [facility] Comment on above: Performed By: #### C MP #### [facility] [address] [address] [address] Vanessa Denis Urea nitrogen/Creatinine [Mass ratio] 21.1 mg/mg Normal [facility] Comment on above: Performed By: #### C MP #### [facility] [address] [address] [address] Vanessa Denis CTA CHEST WO W [...] by: TWYLA CONTEH Date: 2022-05-30 14:23 Normal [facility] GLYCOHEMOGLOBIN A1Con 2022 ADA RECOMMENDATION SEE BELOW Normal [facility] Comment on above: Result Comment: ADA RECOMMENDED LIMIT 4.0 - 6.0 ADA THERAPEUTIC TARGET < 7.0 ACTION SUGGESTED > 7.0 Performed By: #### A 1C #### [facility] [address] [address] [address] Vanessa Denis Glucose [Mass/Vol] 203 mg/dL Normal [facility] Comment on above: Performed By: #### A 1C #### [facility] [address] [address] [address] Vanessa Denis HbA1c (Bld) [Mass fraction] 8.7 % Critically high 4.5-6.2 [facility] Comment on above: Performed By: #### A 1C #### [facility] [address] [place] [address] Dr. Vanessa Denis HEMOGRAM AND PLATELon 2022 Hematocrit (Bld) [Volume fraction] 45.4 % Normal 36.0-48.0 [facility] Comment on above: Performed By: #### H H #### [facility] [address] [place] [address] Dr. Vanessa Denis Hemoglobin (Bld) [Mass/Vol] 14.5 g/dL Normal 12.0-16.0 [facility] Comment on above: Performed By: #### H H #### [facility] [address] [place] [address] Dr. Vanessa Denis MCH (RBC) [Entitic mass] 29.0 pg Normal 26.7-34.0 [facility] Comment on above: Performed By: #### H H #### [facility] [address] [place] [address] Dr. Vanessa Denis MCHC (RBC) [Mass/Vol] 31.9 g/dL Normal 29.9-35.2 [facility] Comment on above: Performed By: #### H H #### [facility] [address] [place] [address] Dr. Vanessa Denis MCV (RBC) [Entitic vol] 90.8 fL Normal 81.0-99.0 [facility] Comment on above: Performed By: #### H H #### [facility] [address] [address] [address] Vanessa Denis PLT 164 103/ul Normal 150-450 [facility] Comment on above: Performed By: #### H H #### [facility] [address] [address] [address] Vanessa Denis RBC 5.00 106/ul Normal 4.20-5.40 [facility] Comment on above: Performed By: #### H H #### [facility] [address] [address] [address] Vanessa Denis WBC 7.6 103/ul Normal 4.0-11.0 [facility] Comment on above: Performed By: #### H H #### [facility] [address] [place] [address] Dr. Vanessa Denis LIPID PROFILEon 05-30-2022 CHOL-HDL RATIO NORM SEE BELOW Normal [facility] Comment on above: Result Comment: 3.3 - 4.4 LOW RISK 4.4 - 7.1 AVERAGE RISK 7.1 - 11.0 MODERATE RISK >11.0 HIGH RISK Performed By: #### L IPID, TSH #### [facility] [address] [place] [address] Dr. Vanessa Denis Cholesterol [Mass/Vol] 110 mg/dL Normal <=200 [facility] Comment on above: Performed By: #### L IPID, TSH #### [facility] [address] [place] [address] Dr. Vanessa Denis Cholesterol in HDL [Mass/Vol] 51 mg/dL Normal 40-60 [facility] Comment on above: Performed By: #### L IPID, TSH #### [facility] [address] [address] [address] Vanessa Denis Cholesterol in LDL [Mass/Vol] 39.4 mg/dL Normal [facility] Comment on above: Performed By: #### L IPID, TSH #### [facility] [address] [place] [address] Dr. Vanessa Denis Cholesterol.total/Cho lesterol in HDL [Mass ratio] 2.2 {ratio} Normal [facility] Comment on above: Performed By: #### L IPID, TSH #### [facility] [address] [address] [address] Vanessa Denis HDL NORMAL > or = 60 mg/dl - LO W CARDIOVASCULAR RISK <40 mg/dl - HIGH CARDIOVASCULAR RISK Normal [facility] Comment on above: Performed By: #### L IPID, TSH #### [facility] [address] [address] [address] Vanessa Denis LDL CALC NORMAL SEE BELOW Normal [facility] Comment on above: Result Comment: <100 mg/dl OPTIMAL 100 - 129 mg/dl NEAR OR ABOVE OPTIMAL 130 - 159 mg/dl BORDERLINE HIGH 160 - 189 mg/dl HIGH >190 mg/dl VERY HIGH Performed By: #### L IPID, TSH #### [facility] [address] [place] [address] Dr. Vanessa Denis Triglyceride [Mass/Vol] 98 mg/dL Normal <=150 [facility] Comment on above: Performed By: #### L IPID, TSH #### [facility] [address] [address] [address] Vanessa Denis VLDL CALC 19.6 mg/dL Normal [facility] Comment on above: Performed By: #### L IPID, TSH #### [facility] [address] [address] [address] Vanessa Denis PROF 14(COMP METB)on 023 Albumin [Mass/Vol] 3.4 g/dL Normal 3.4-5.0 [facility] Comment on above: Performed By: #### C MP #### [facility] [address] [address] [address] Vanessa Denis Albumin/Globulin [Mass ratio] 0.9 {ratio} Normal [facility] Comment on above: Performed By: #### C MP #### [facility] [address] [address] [address] Vanessa Denis ALP [Catalytic activity/Vol] 68 U/L Normal 46-116 [facility] Comment on above: Performed By: #### C MP #### [facility] [address] [address] [address] Vanessa Denis ALT [Catalytic activity/Vol] 23 U/L Normal 14-59 [facility] Comment on above: Performed By: #### C MP #### [facility] [address] [address] [address] Vanessa Denis Anion gap [Moles/Vol] 10.1 mmol/L Normal [facility] Comment on above: Performed By: #### C MP #### [facility] [address] [address] [address] Vanessa Denis AST [Catalytic activity/Vol] 21 U/L Normal 15-37 [facility] Comment on above: Performed By: #### C MP #### [facility] [address] [place] [address] Dr. Vanessa Denis Bilirubin [Mass/Vol] 0.9 mg/dL Normal 0.2-1.0 [facility] Comment on above: Performed By: #### C MP #### [facility] [address] [place] [address] Dr. Vanessa Denis Calcium [Mass/Vol] 9.2 mg/dL Normal 8.5-10.1 [facility] Comment on above: Performed By: #### C MP #### [facility] [address] [address] [address] Vanessa Denis Chloride [Moles/Vol] 101 mmol/L Normal 98-107 [facility] Comment on above: Performed By: #### C MP #### [facility] [address] [address] [address] Vanessa Denis CO2 [Moles/Vol] 31.5 mmol/L Normal 21.0-32.0 [facility] Comment on above: Performed By: #### C MP #### [facility] [address] [address] [address] Vanessa Denis Creatinine [Mass/Vol] 1.15 mg/dL Critically high 0.55-1.02 [facility] Comment on above: Performed By: #### C MP #### [facility] [address] [address] [address] Vanessa Denis EGFR-AF ZAMBIAN 56 mL/min/1.73m2 Critically low >=60 [facility] Comment on above: Performed By: #### C MP #### [facility] [address] [address] [address] Vanessa Denis EGFR-NON AF ZAMBIAN 46 mL/min/1.73m2 Critically low >=60 [facility] Comment on above: Performed By: #### C MP #### [facility] [address] [address] [address] Vanessa Denis Globulin (S) [Mass/Vol] 4.0 g/dL Normal [facility] Comment on above: Performed By: #### C MP #### [facility] [address] [address] [address] Vanessa Denis Glucose [Mass/Vol] 254 mg/dL Critically high 74-106 T [facility] Comment on above: Performed By: #### C MP #### [facility] [address] [address] [address] Vanessa Denis Potassium [Moles/Vol] 4.6 mmol/L Normal 3.5-5.1 [facility] Comment on above: Performed By: #### C MP #### [facility] [address] [address] [address] Vanessa Denis Protein [Mass/Vol] 7.4 g/dL Normal 6.4-8.2 [facility] Comment on above: Performed By: #### C MP #### [facility] [address] [address] [address] Vanessa Denis Sodium [Moles/Vol] 138 mmol/L Normal 136-145 [facility] Comment on above: Performed By: #### C MP #### [facility] [address] [address] [address] Vanessa Denis Urea nitrogen [Mass/Vol] 24.0 mg/dL Critically high 7.0-18.0 [facility] Comment on above: Performed By: #### C MP #### [facility] [address] [address] [address] Vanessa Denis Urea nitrogen/Creatinine [Mass ratio] 20.9 mg/mg Normal [facility] Comment on above: Performed By: #### C MP #### [facility] [address] [address] [address] Vanessa Denis TSHon 05-30-2022 TSH 2.067 uIU/mL Normal 0.358-3.740 [facility] Comment on above: Performed By: #### L IPID, TSH #### [facility] [address] [address] [address] Vanessa Denis Vital Signs Date Time Vital Sign Value Performing Clinician Facility 01-05-2024 10:51-0400 Blood Pressure Location Jo Ann Orzech [facility] 01-05-2024 10:51-0400 Diastolic blood pressure 72 mm[Hg] Jo Ann Orzech [facility] 01-05-2024 10:51-0400 Heart rate 82 /min Jo Ann Orzech [facility] 01-05-2024 10:51-0400 Systolic blood pressure 134 mm[Hg] Jo Ann Orzech [facility] 12-10-2023 14:55-0400 Body height 152.4 cm [facility] 12-10-2023 14:55-0400 Body mass index (BMI) [Ratio] 32.2 kg/m2 [facility] 12-10-2023 14:55-0400 Body temperature 97.6 [degF] [facility] 12-10-2023 14:55-0400 Body weight 74.89 kg [facility] 12-10-2023 14:55-0400 Diastolic blood pressure 81 mm[Hg] [facility] 12-10-2023 14:55-0400 Heart rate 95 /min [facility] 12-10-2023 14:55-0400 Respiratory rate 16 /min [facility] 12-10-2023 14:55-0400 SaO2% (BldA) [Mass fraction] 96 % [facility] 12-10-2023 14:55-0400 Systolic blood pressure 134 mm[Hg] [facility] 11-24-2023 11:02-0400 Blood Pressure Location Jo Ann Orzech [facility] 11-24-2023 11:02-0400 Diastolic blood pressure 71 mm[Hg] Jo Ann Orzech [facility] 11-24-2023 11:02-0400 Heart rate 69 /min Jo Ann Orzech [facility] 11-24-2023 11:02-0400 Respiratory rate 16 /min Jo Ann Orzech [facility] 11-24-2023 11:02-0400 Systolic blood pressure 133 mm[Hg] Jo Ann Orzech [facility] 10-13-2023 10:00-0400 Blood Pressure Location VIVI LAITH [facility] 10-13-2023 10:00-0400 Body temperature 98.06 [degF] VIVI LAITH [facility] 10-13-2023 10:00-0400 Diastolic blood pressure 78 mm[Hg] VIVI LAITH [facility] 10-13-2023 10:00-0400 Heart rate 78 /min VIVI LAITH [facility] 10-13-2023 10:00-0400 Systolic blood pressure 116 mm[Hg] VIVI OZUNA [facility] 06-24-2023 13:52-0500 Blood Pressure Location Doug NILL [facility] 06-24-2023 13:52-0500 Diastolic blood pressure 78 mm[Hg] Doug NILL [facility] 06-24-2023 13:52-0500 Heart rate 68 /min Doug NILL [facility] 06-24-2023 13:52-0500 Respiratory rate 16 /min Doug NILL [facility] 06-24-2023 13:52-0500 Systolic blood pressure 110 mm[Hg] Doug NILL [facility] 06-09-2023 11:52-0500 Body height 152.4 cm Dg Proctor MD Work Phone: [facility] 06-09-2023 11:52-0500 Body mass index (BMI) [Ratio] 32.42 kg/m2 Dg Proctor MD Work Phone: [facility] 06-09-2023 11:52-0500 Body weight 75.3 kg Dg Proctor MD Work Phone: [facility] 04-18-2023 00:39-0500 Diastolic blood pressure 95 mm[Hg] Kaylinn Dokken [facility] 04-18-2023 00:39-0500 Heart rate 74 /min Kaylinn Dokken [facility] 04-18-2023 00:39-0500 Mean blood pressure 117 mm[Hg] Kaylinn Dokken [facility] 04-18-2023 00:39-0500 Respiratory rate 22 /min Kaylinn Dokken [facility] 04-18-2023 00:39-0500 SaO2% (BldA) [Mass fraction] 97 % Kaylinn Dokken [facility] 04-18-2023 00:39-0500 Systolic blood pressure 161 mm[Hg] Kaylinn Dokken [facility] 04-17-2023 23:43-0500 Diastolic blood pressure 71 mm[Hg] Kaylinn Dokken [facility] 04-17-2023 23:43-0500 Heart rate 63 /min Kaylinn Dokken [facility] 04-17-2023 23:43-0500 Mean blood pressure 98 mm[Hg] Kaylinn Dokken [facility] 04-17-2023 23:43-0500 Respiratory rate 15 /min Kaylinn Dokken [facility] 04-17-2023 23:43-0500 SaO2% (BldA) [Mass fraction] 96 % Kaylinn Dokken [facility] 04-17-2023 23:43-0500 Systolic blood pressure 151 mm[Hg] Kaylinn Dokken [facility] 04-17-2023 23:23-0500 Body temperature 97.88 [degF] Kaylinn Dokken [facility] 04-17-2023 23:23-0500 Diastolic blood pressure 82 mm[Hg] Kaylinn Dokken [facility] 04-17-2023 23:23-0500 Heart rate 68 /min Kaylinn Dokken [facility] 04-17-2023 23:23-0500 Mean blood pressure 99 mm[Hg] Kaylinn Dokken [facility] 04-17-2023 23:23-0500 Respiratory rate 20 /min Kaylinn Dokken [facility] 04-17-2023 23:23-0500 SaO2% (BldA) [Mass fraction] 94 % Kaylinn Dokken [facility] 04-17-2023 23:23-0500 Systolic blood pressure 134 mm[Hg] Kaylinn Dokken [facility] 04-17-2023 22:39-0500 Respiratory rate 18 /min Kaylinn Dokken [facility] 04-17-2023 21:50-0500 Respiratory rate 18 /min Kaylinn Dokken [facility] 04-17-2023 20:50-0500 Body temperature 98.06 [degF] Kaylinn Dokken [facility] 04-17-2023 20:50-0500 Heart rate 72 /min Kaylinn Dokken [facility] 04-17-2023 20:50-0500 Respiratory rate 18 /min Kaylinn Dokken [facility] 04-17-2023 20:29-0500 Body temperature 98.06 [degF] Kaylinn Dokken [facility] 04-17-2023 20:29-0500 Heart rate 76 /min Kaylinn Dokken [facility] 02-23-2023 13:40-0400 Body height 152.4 cm Nicolás Orlando Other [facility] Other 02-23-2023 13:40-0400 Body mass index (BMI) [Ratio] 34.72 kg/m2 Nicolás Orlando Other [facility] Other 02-23-2023 13:40-0400 Body temperature 96.8 [degF] Nicolás Orlando Other [facility] Other 02-23-2023 13:40-0400 Body weight 80.65 kg Nicolás Orlando Other [facility] Other 02-23-2023 13:40-0400 Diastolic blood pressure 82 mm[Hg] Nicolás Orlando Other [facility] Other 02-23-2023 13:40-0400 Respiratory rate 20 /min Nicolás Orlando Other [facility] Other 02-23-2023 13:40-0400 SaO2% (BldA) [Mass fraction] 99 % Nicolás Orlando Other [facility] Other 02-23-2023 13:40-0400 Systolic blood pressure 132 mm[Hg] Nicolás Orlando Other [facility] Other 12-31-2022 09:00-0400 Body height 152.4 cm Nicolás Orlando Other [facility] Other 12-31-2022 09:00-0400 Body mass index (BMI) [Ratio] 32.14 kg/m2 Nicolás Orlando Other [facility] Other 12-31-2022 09:00-0400 Body temperature 96.3 [degF] Nicolás Orlando Other [facility] Other 12-31-2022 09:00-0400 Body weight 74.66 kg Nicolás Orlando Other [facility] Other 12-31-2022 09:00-0400 Diastolic blood pressure 56 mm[Hg] Nicolás Orlando Other [facility] Other 12-31-2022 09:00-0400 Respiratory rate 20 /min Nicolás Orlando Other [facility] Other 12-31-2022 09:00-0400 SaO2% (BldA) [Mass fraction] 98 % Nicolás Orlando Other [facility] Other 12-31-2022 09:00-0400 Systolic blood pressure 91 mm[Hg] Nicolás Orlando Other [facility] Other Encounters Encounter Date Encounter Type Care Provider Facility Start: 01-18-2024 End: 01-18-2024 ambulatory [facility] Start: 01-13-2024 End: 01-17-2024 Evaluation and management of inpatient MIKE PLASENCIA [facility] Start: 01-13-2024 End: 01-17-2024 Evaluation and management of inpatient ROSANGELA [facility] Start: 01-11-2024 End: 01-17-2024 Emergency department patient visit MITZY BLISS [facility] Start: 01-11-2024 End: 01-17-2024 Emergency department patient visit MARTHA BARRAGAN [facility] Start: 01-11-2024 End: 01-16-2024 Evaluation and management of inpatient [facility] Start: 01-11-2024 End: 01-11-2024 ambulatory [facility] Start: 01-05-2024 End: 01-05-2024 ambulatory [facility] Facility:[place] Start: 01-05-2024 End: 01-05-2024 Patient encounter procedure Jo Ann X Orzech [facility] Start: 12-11-2023 End: 12-11-2023 ambulatory [facility] Start: 12-11-2023 Encounter for other preprocedural examination [facility] Start: 12-11-2023 Encounter for preprocedural cardiovascular examination [facility] Start: 12-10-2023 End: 12-10-2023 ambulatory [facility] Work Phone: Start: 12-10-2023 End: 12-10-2023 Patient encounter procedure [facility] Work Phone: Start: 11-24-2023 End: 11-24-2023 ambulatory [facility] Facility:[place] Start: 11-24-2023 End: 11-24-2023 Patient encounter procedure Jo Ann X Orzech [facility] Start: 11-17-2023 Non-patient / Non-visit [facility] Work Phone: Start: 11-16-2023 Non-patient / Non-visit [facility] Work Phone: Start: 10-13-2023 End: 10-13-2023 ambulatory [facility] Facility:[place] Start: 10-13-2023 End: 10-13-2023 Patient encounter procedure VIVI OZUNA [facility] [place] Start: 09-08-2023 End: 09-08-2023 ambulatory DG D BEJ Not Available Start: 06-30-2023 End: 06-30-2023 ambulatory PROESDRAS JEAN Facility: [place] Start: 06-24-2023 End: 06-24-2023 ambulatory Doug FERNANDEZ Facility: [place] Start: 06-24-2023 End: 06-24-2023 Patient encounter procedure Doug R NILL [facility] [place] Start: 06-09-2023 Bambovita flowsheet Dg Proctor MD Work Phone: [facility] Start: 06-09-2023 Bamboo flowsheet Dg Proctor MD Work Phone: [facility] Start: 06-09-2023 End: 06-09-2023 ambulatory DG D BEJ Not Available Start: 06-09-2023 End: 06-09-2023 Office outpatient new 45 minutes Dg Proctor MD Work Phone: [facility] Comment on above: Sequelae of cerebral infarction (Primary Dx); Polyneuropathy Start: 05-25-2023 ambulatory Karynadarlene liz Facility : [place] Start: 05-21-2023 End: 05-21-2023 ambulatory Nicolás Orlando Other [facility] Other Start: 05-21-2023 Office outpatient vi sit 25 minutes Nicolás Orlando [facility] Start: 04-17-2023 End: 04-18-2023 Emergency department patient visit Nancy Stern [facility] Start: 04-08-2023 End: 04-08-2023 ambulatory Nicolás Orlando Other [facility] Other Start: 04-08-2023 Telephone encounter Nicolás Orlando [facility] Start: 02-27-2023 ambulatory Nancy Stern Facility :[facility] Start: 02-23-2023 End: 02-23-2023 ambulatory Nicolás Orlando Other [facility] Other Start: 02-23-2023 Office outpatient vi sit 25 minutes Nicolás Orlando [facility] Start: 12-31-2022 End: 12-31-2022 ambulatory Nicolás Orlando Other [facility] Other Start: 12-31-2022 Office outpatient ne w 45 minutes Nicolás Orlando [facility] Start: 08-13-2022 End: 08-13-2022 ambulatory PRO SHAMMO Facility:[facility] Start: 08-11-2022 End: 08-11-2022 ambulatory PRO SHAMMO Facility:[facility] Start: 05-30-2022 End: 05-31-2022 ambulatory PRO SHAMMO Facility:[facility] Start: 05-28-2022 End: 05-28-[address] JENIFER CASTILLO Facility:[facility] Start: 07-08-2021 End: 02-03-2022 ambulatory [place] Procedures Date Procedure Procedure Detail Performing Clinician Start: 07-19-2020 Cystourethroscopy wi th dilation of urethral stricture VIVI OZUNA Start: 05-19-2013 Colonoscopy Doug NI LL Colonoscopy Nancy Stern Dilation of urethra Doug NILL Division of Left Ank le Tendon, Open Approach Doug NILL Excision of Left Tar julia, Open Approach Doug NILL Fusion of Left Tarsa l Joint with Internal Fixation Device, Open Approach Doug NILL Repair of cleft palate Sampson nancy FERNANDEZ Tonsillectomy Nancy Stern Tonsillectomy and adenoidectomy Doug FERNANDEZ Plan of Treatment Date Care Activity Detail Author Start: 03-07-2024 Pneumococcal Vaccine: 65+ Years (3 - PPSV23 or PCV20) Pneumococcal Vaccine: 65+ Years (3 - PPSV23 or PCV20) [facility] Start: 03-07-2024 Pneumococcal Vaccine: 65+ Years (3 of 3 - PPSV23 or PCV20) Pneumococcal Vaccine: 65+ Years (3 of 3 - PPSV23 or PCV20) [facility] Start: 09-08-2023 End: 09-08-2023 Patient encounter procedure 09/08/2023 1:45 PM EDT Office Visit [facility] [address] [place] [address] Dg Proctor MD [address] [place] [address] [facility] Start: 1950 Medicare Annual Wellness (AWV) Medicare Annual Wellness (AWV) [facility] Start: 1950 Screening for malignant neoplasm of colon [facility] Renal function 2000 panel - Serum or Plasma [facility] Immunizations Immunization Date Immunization Notes Care Provider Fa cility 02-19-2023 influenza virus vaccine, unspecified formulation Doug FERNANDEZ [facility] [place] 02-06-2022 SARS-CoV-2 (COVID-19 ) [id number] Doug FERNANDEZ [facility] [place] 05-06-2021 SARS-CoV-2 (COVID-19 ) mRNA BNT-162b2 vax Doug FERNANDEZ [facility] [place] 07-06-2020 SARS-CoV-2 (COVID-19 ) Ad26 vaccine, recombinant Doug FERNANDEZ [facility] [place] Payers Date Payer Category Payer Medicaid MEDICAID [facility] [id number] 2021-Present [phone] [address] [place] [address] Medicaid [id number] 2020 Private Health Insurance [id number] 2013 Medicare MEDICARE MEDICAR E PART B [id number] 2013-Present [address] [address] [place] [address] Medicare [id number] 1959 Medicaid [id number] 1959 Medicare [id number] 1948 Unknown [id number] 2.16.840.1.073078.3.579.2. 593 1948 Unknown [id number] 2.16.840.1.632996.3.579.2. 593 1948 Unknown [id number] 2.16.840.1.311965.3.579.2. 593 1948 Unknown [id number] 2.16.840.1.903476.3.579.2. 593 1948 Unknown [id number] 2.16.840.1.991055.3.579.2. 593 1948 Unknown [id number] 2.16.840.1.984968.3.579.2. 1259 1948 Unknown [id number] 2.16.840.1.286329.3.579.2. 1259 1948 Unknown [id number] 2.16.840.1.246414.3.579.2. 1286 1948 Unknown [id number] 2.16.840.1.767475.3.579.2. 727 1948 Unknown [id number] 2.16.840.1.260795.3.579.2. 727 1948 Unknown [id number] 2.16.840.1.390398.3.579.2. 727 1948 Unknown [id number] 2.16.840.1.486704.3.579.2. 727 1948 Unknown [id number] 2.16.840.1.270054.3.579.2. 727 1948 Unknown [id number] 2.16.840.1.872281.3.579.2. 727 1948 Unknown [id number] 2.16.840.1.895551.3.579.2. 727 1948 Unknown [id number] 2.16.840.1.931195.3.579.2. 1286 1948 Unknown [id number] 2.16.840.1.007035.3.579.2. 1286 1948 Unknown [id number] 2.16.840.1.837857.3.579.2. 1286 1948 Unknown [id number] 2.16.840.1.108039.3.579.2. 1286 1948 Unknown [id number] 2.16.840.1.230056.3.579.2. 1286 1948 Unknown [id number] 2.16.840.1.034467.3.579.2. 1286 1948 Unknown [id number] 2.16.840.1.556788.3.579.2. 1286 Worker's Compensation [id number] Social History Date Type Detail Facility Unknown if ever smoked [facility] Other Sex Assigned At [facility] Start: 07-10-2020 End: 01-05-2024 Tobacco smoking status Ex-smoker (finding) [facility] Tobacco smoking status NVIS Tobacco smoking consumption unknown [facility] Start: 1950 Sex Assigned At Not on file N [facility] Tobacco smoking status Never [facility] [place] Start: 1950 Sex Assigned At Female F [facility] Functional Status Date Assessment Result Facility 01-05-2024 Functional Status N/A [facility] 11-24-2023 Functional Status N/A [facility] 10-13-2023 Functional Status N/A [facility] 06-24-2023 Functional Status N/A [facility] Functional Status N/A [facility] Clinical Notes 12-31-2022 to 01-05-2024 Dg Proctor MD - 06/09/2023 12:27 PM Zena Proctor MD - 06/09/2023 12:26 PM Zena Proctor MD - 06/09/2023 11:15 AM EST Note Date & Type Note Facility 01-05-2024 Hospital Discharge instructions Patient Education 01/05/2024 11:25:07 Urinary Incontinence Urinary Incontinence Urinary incontinence refers to a condition in which a person is unable to control where and when to pass urine. A person with this condition will urinate involuntarily. This means that the person urinates when he or she does not mean to. What are the causes? This condition may be caused by: Medicines. Infections. Constipation. Overactive bladder muscles. Weak bladder muscles. Weak pelvic floor muscles. These muscles provide support for the bladder, intestine, and, in women, the uterus. Enlarged prostate in men. The prostate is a gland near the bladder. When it gets too big, it can pinch the urethra. With the urethra blocked, the bladder can weaken and lose the ability to empty properly. Surgery. Emotional factors, such as anxiety, stress, or post-traumatic stress disorder (PTSD). Spinal cord injury, nerve injury, or other neurological conditions. Pelvic organ prolapse. This happens in women when organs move out of place and into the vagina. This movement can prevent the bladder and urethra from working properly. What increases the risk? The following factors may make you more likely to develop this condition: Age. The older you are, the higher the risk. Obesity. Being physically inactive. and childbirth. Menopause. Diseases that affect the nerves or spinal cord. Long-term, or chronic, coughing. This can increase pressure on the bladder and pelvic floor muscles. What are the signs or symptoms? Symptoms may vary depending on the type of urinary incontinence you have. They include: A sudden urge to urinate, and passing urine involuntarily before you can get to a bathroom (urge incontinence). Suddenly passing urine when doing activities that force urine to pass, such as coughing, laughing, exercising, or sneezing (stress incontinence). Needing to urinate often but urinating only a small amount, or constantly dribbling urine (overflow incontinence). Urinating because you cannot get to the bathroom in time due to a physical disability, such as arthritis or injury, or due to a communication or thinking problem, such as Alzheimer's disease (functional incontinence). How is this diagnosed? This condition may be diagnosed based on: Your medical history. A physical exam. Tests, such as: ?Urine tests. ?X-rays of your kidney and bladder. ?Ultrasound. ?CT scan. ?Cystoscopy. In this procedure, a health care provider inserts a tube with a light and camera (cystoscope) through the urethra and into the bladder to check for problems. ?Urodynamic testing. These tests assess how well the bladder, urethra, and sphincter can store and release urine. There are different types of urodynamic tests, and they vary depending on what the test is measuring. To help diagnose your condition, your health care provider may recommend that you keep a log of when you urinate and how much you urinate. How is this treated? Treatment for this condition depends on the type of incontinence that you have and its cause. Treatment may include: Lifestyle changes, such as: ?Quitting smoking. ?Maintaining a healthy weight. ?Staying active. Try to get 150 minutes of moderate-intensity exercise every week. Ask your health care provider which activities are safe for you. ?Eating a healthy diet. ?Avoid high-fat foods, like fried foods. ?Avoid refined carbohydrates like white bread and white rice. ?Limit how much alcohol and caffeine you drink. ?Increase your fiber intake. Healthy sources of fiber include beans, whole grains, and fresh fruits and vegetables. Behavioral changes, such as: ?Pelvic floor muscle exercises. ?Bladder training, such as lengthening the amount of time between bathroom breaks, or using the bathroom at regular intervals. ?Using techniques to suppress bladder urges. This can include distraction techniques or controlled breathing exercises. Medicines, such as: ?Medicines to relax the bladder muscles and prevent bladder spasms. ?Medicines to help slow or prevent the growth of a man's prostate. ?Botox injections. These can help relax the bladder muscles. Treatments, such as: ?Using pulses of electricity to help change bladder reflexes (electrical nerve stimulation). ?For women, using a manager medical to prevent urine leaks. This is a small, tampon-like, disposable device that is inserted into the urethra. ?Injecting collagen or carbon beads (bulking agents) into the urinary sphincter. These can help thicken tissue and close the bladder opening. ?Surgery. Follow these instructions at home: Lifestyle Limit alcohol and caffeine. These can fill your bladder quickly and irritate it. Keep yourself clean to help prevent odors and skin damage. Ask your health care provider about special skin creams and cleansers that can protect the skin from urine. Consider wearing pads or adult diapers. Make sure to change them regularly, and always change them right after experiencing incontinence. General instructions Take mqsg-kxg-bugorol and prescription medicines only as told by your health care provider. Use the bathroom about every 3 4 hours, even if you do not feel the need to urinate. Try to empty your bladder completely every time. After urinating, wait a minute. Then try to urinate again. Make sure you are in a relaxed position while urinating. If your incontinence is caused by nerve problems, keep a log of the medicines you take and the times you go to the bathroom. Keep all follow-up visits. This is important. Where to find more information National [place] of Diabetes and Digestive and Kidney Diseases: www.niddk.nih.gov [place] [employer]: www.urologyhealth.org Contact a health care provider if: You have pain that gets worse. Your incontinence gets worse. Get help right away if: You have a fever or chills. You are unable to urinate. You have redness in your groin area or down your legs. Summary Urinary incontinence refers to a condition in which a person is unable to control where and when to pass urine. This condition may be caused by medicines, infection, weak bladder muscles, weak pelvic floor muscles, enlargement of the prostate (in men), or surgery. Factors such as older age, obesity, and childbirth, menopause, neurological diseases, and chronic coughing may increase your risk for developing this condition. Types of urinary incontinence include urge incontinence, stress incontinence, overflow incontinence, and functional incontinence. This condition is usually treated first with lifestyle and behavioral changes, such as quitting smoking, eating a healthier diet, and doing regular pelvic floor exercises. Other treatment options include medicines, bulking agents, medical devices, electrical nerve stimulation, or surgery. This information is not intended to replace advice given to you by your health care provider. Make sure you discuss any questions you have with your health care provider. Document Revised: 11/16/2020 Document Reviewed: 11/16/2020 [employer] Patient Education 2023 [employer]. Follow Up Care 11/24/2023 11:40:42 With:AALIYAH Silvestre APRN, SHAR Arias, URL Address: When: Unknown Comments:6 months [facility] Note Patient Education Urology Urinary Incontinence Urinary incontinence refers to a condition in which a person is unable to control where and when to pass urine. A person with this condition will urinate involuntarily. This means that the person urinates when he or she does not mean to. What are the causes? This condition may be caused by: ? Medicines. ? Infections. ? Constipation. ? Overactive bladder muscles. ? Weak bladder muscles. ? Weak pelvic floor muscles. These muscles provide support for the bladder, intestine, and, in women, the uterus. ? Enlarged prostate in men. The prostate is a gland near the bladder. When it gets too big, it can pinch the urethra. With the urethra blocked, the bladder can weaken and lose the ability to empty properly. ? Surgery. ? Emotional factors, such as anxiety, stress, or post-traumatic stress disorder (PTSD). ? Spinal cord injury, nerve injury, or other neurological conditions. ? Pelvic organ prolapse. This happens in women when organs move out of place and into the vagina. This movement can prevent the bladder and urethra from working properly. What increases the risk? The following factors may make you more likely to develop this condition: ? Age. The older you are, the higher the risk. ? Obesity. ? Being physically inactive. ? and childbirth. ? Menopause. ? Diseases that affect the nerves or spinal cord. ? Long-term, or chronic, coughing. This can increase pressure on the bladder and pelvic floor muscles. What are the signs or symptoms? Symptoms may vary depending on the type of urinary incontinence you have. They include: ? A sudden urge to urinate, and passing urine involuntarily before you can get to a bathroom (urge incontinence). ? Suddenly passing urine when doing activities that force urine to pass, such as coughing, laughing, exercising, or sneezing (stress incontinence). ? Needing to urinate often but urinating only a small amount, or constantly dribbling urine (overflow incontinence). ? Urinating because you cannot get to the bathroom in time due to a physical disability, such as arthritis or injury, or due to a communication or thinking problem, such as Alzheimer's disease (functional incontinence). How is this diagnosed? This condition may be diagnosed based on: ? Your medical history. ? A physical exam. ? Tests, such as: ? Urine tests. ? X-rays of your kidney and bladder. ? Ultrasound. ? CT scan. ? Cystoscopy. In this procedure, a health care provider inserts a tube with a light and camera (cystoscope) through the urethra and into the bladder to check for problems. ? Urodynamic testing. These tests assess how well the bladder, urethra, and sphincter can store and release urine. There are different types of urodynamic tests, and they vary depending on what the test is measuring. To help diagnose your condition, your health care provider may recommend that you keep a log of when you urinate and how much you urinate. How is this treated? Treatment for this condition depends on the type of incontinence that you have and its cause. Treatment may include: ? Lifestyle changes, such as: ? Quitting smoking. ? Maintaining a healthy weight. ? Staying active. Try to get 150 minutes of moderate-intensity exercise every week. Ask your health care provider which activities are safe for you. ? Eating a healthy diet. ? Avoid high-fat foods, like fried foods. ? Avoid refined carbohydrates like white bread and white rice. ? Limit how much alcohol and caffeine you drink. ? Increase your fiber intake. Healthy sources of fiber include beans, whole grains, and fresh fruits and vegetables. ? Behavioral changes, such as: ? Pelvic floor muscle exercises. ? Bladder training, such as lengthening the amount of time between bathroom breaks, or using the bathroom at regular intervals. ? Using techniques to suppress bladder urges. This can include distraction techniques or controlled breathing exercises. ? Medicines, such as: ? Medicines to relax the bladder muscles and prevent bladder spasms. ? Medicines to help slow or prevent the growth of a man's prostate. ? Botox injections. These can help relax the bladder muscles. ? Treatments, such as: ? Using pulses of electricity to help change bladder reflexes (electrical nerve stimulation). ? For women, using a manager medical to prevent urine leaks. This is a small, tampon-like, disposable device that is inserted into the urethra. ? Injecting collagen or carbon beads (bulking agents) into the urinary sphincter. These can help thicken tissue and close the bladder opening. ? Surgery. Follow these instructions at home: Lifestyle ? Limit alcohol and caffeine. These can fill your bladder quickly and irritate it. ? Keep yourself clean to help prevent odors and skin damage. Ask your health care provider about special skin creams and cleansers that can protect the (more content not included)... [facility] 11-28-2023 Note Patient Education Obstetrics and Gynecology [...] these instructions at home: Medicines ? Take irtq-bkw-hdkuqzm and prescription medicines only as told by [...] provider. Document Revised: 01/02/2021 Document Reviewed: 01/02/2021 [employer] Clear Patient Education ? 2022 [employer]. Urology Urinary Incontinence Urinary incontinence refers to a condition in which a person is unable to control where and (more content not included)... [facility] 10-13-2023 Hospital Discharge instructions Patient Education 10/13/2023 [...] your health care provider. General instructions Take aayj-jiv-qwosviq and prescription medicines only as told by [...] provider. Document Revised: 12/31/2020 Document Reviewed: 12/31/2020 [employer] Patient Education 2022 [employer]. Follow Up Care 06/30/2023 10:55:11 With:VIVI OZUNA PA-C, URL Address: [address] [place] [address] [phone] When: Unknown Comments:6 wks w/ PVR [facility] [place] 06-24-2023 Note Chief Complaint consultation for colonoscopy [...] mg= 1 tab(s), Oral, Daily Vitamin D3, 81971 unit(s), Oral, qWeek Zoloft 25 mg Tab, [...] virus vaccine, inactivated 02/19/2023 Recorded SARS-CoV-2 (COVID-19) [id number] 02/06/2022 Recorded SARS-CoV-2 (COVID-19) mRNA BNT-162b2 vax (more content not included)... [facility] Comment on above: Result Comment: Elec tronically Signed By: REBECCA KILLIAN, Doug Calvillo\viky\Date and Time Signed: 06/24/23 14:18 EST 06-09-2023 History of Present illness Narrative Associated Problem(s): Polyneuropathy TSH + fT4. Emphasized good A1c control. Associated Problem(s): Sequelae of cerebral infarction Echo c bubble study. ([place] or [place]). US carotids ([facility]). (Continue ASA.) Images from the original note were not included. Outpatient Progress Note Prev Appt: Visit date not found Chief Complaint Patient presents with Memory Loss Assessment and Plan - Sequelae of cerebral infarction Echo c bubble study. ([place] or [place]). US carotids ([facility]). (Continue ASA.) Polyneuropathy TSH [...] Nov, hemipar R face & hand. -> [facility]. Known DM. Onset Semeiology Imaging US carotids (03/2020, [place]) - < 50% B CT head (12/2019, [place]) - neg Testing Surgery Failed Dx PN [...] mouth in the morning. D3-50 1.25 MG (92661 UT) capsule ferrous sulfate 325 (65 Fe) [...] as of 06/09/2023. documented in this encounter [facility] 05-21-2023 Evaluation note Encounter Date [...] down the progression of CKD. Apr, Cirilo robles kid w cr kid I-IV (ICD-10 - [...] will benefit with SGLT2 inhibitors including Farxiga, Arnaud Riojasokana. Will defer this decision to the PCP. [...] and no personal patient information was compromised. [facility] Other 12-23-2023 Hospital Discharge instructions Patient Education [...] Ask your health care provider for a kxgb-mp-bvey plan for gradually returning to activities. Ask [...] your friends, family, a trusted colleague, and sanitation worker about your injury, symptoms, and restrictions. Have them watch for any new or worsening problems. General instructions Take asdi-xoc-rynrgtk and prescription medicines only as told by [...] provider. Document Revised: 02/24/2020 Document Reviewed: 02/24/2020 [employer] Patient Education 2022 [employer]. Follow Up Care 04/17/2023 20:26:54 With:RICHARD VARGAS Address: [address] [facility] (1) When:04/20/2023 Comments:Follow-up with your primary care provider in 3 to 5 days. If symptoms worsen, do not improve, or new symptoms arise please report back to emergency department for further evaluation. [facility]12-22-2023 Evaluation + Plan noteExtracted from: Title:ED [...] Date:06/30/2023 10:00:00 AM Scheduled Provider:VIVI OZUNA PA-C Location:[facility] Appointment Type:URO Office Visit [facility]10-30-2023 Evaluation note* Encounter Date Diagnosis Assessment [...] recent gout flare. Continue monitor without medications. [facility] Other 09-06-2023 Evaluation note* Encounter Date Diagnosis [...] We will check also for paraproteinemia work-up. [facility] Other Evaluation + Plan note Future Appointments Appointment Date:06/30/2023 10:00:00 AM Scheduled Provider:VIVI OZUNA PA-C Location:[facility] Appointment Type:URO Office Visit General Surgery [place] Evaluation + Plan note Future Appointments Appointment Date:11/24/2023 11:00:00 AM Scheduled Provider:VIVI OZUNA PA-C Location:[facility] Appointment Type:URO Office Visit [facility] evaluation + Plan note Future Appointments Appointment Date:01/05/2024 11:00:00 AM Scheduled Provider:AALIYAH Silvestre APRN, [place] [facility] Location:[facility] Appointment Type:URO Office Visit [facility] evaluation noteNo InformationNort [employer] Other Evaluation note* Diagnosis Sequelae of cerebral infarction- Primary Unspecified late effects of cerebrovascular disease Polyneuropathy Unspecified hereditary and idiopathic peripheral neuropathy documented [facility] this [facility] Diagnosis Onset Date Resolution Status Anemia of renal disease acut e CKD (chronic kidney disease) stage 3, GFR 30-59 ml/min acute Hyperlipidemia acute [id number] acute Hyperuricemia acute Secondary hyperparathyroidism acute Type 2 diabetes mellitus wit h diabetic chronic kidney disease acute [facility] Work Phone: [facility] general Narrative - Reported* Type Description Date [...] TONSILLECTOMY AND ADENOIDECTOMY Hospitalization History SEE ABOVE [facility] Other History general Narrative - Reported* Type [...] TONSILLECTOMY AND ADENOIDECTOMY Hospitalization History SEE ABOVE [facility] Other Hospital course Narrative No data available for this section [facility] No data available for this section General Surgery [facility] Progress note No data available for this section [facility] Summary Purpose Family History No Family [...] disease) stage 3, GFR 30-59 ml/min Hyperlipidemia [id number] Hyperuricemia Secondary hyperparathyroidism Type 2 diabetes mellitus with diabetic chronic kidney disease Additional Source Comments INFORMATION SOURCE (unrecogn ized section and content) DATE CREATED AUTHOR 02/03/2022 [place] DATE CREATED AUTHOR AUTHOR'S ORGANIZ ATION 08/22/2022 [facility] DATE CREATED AUTHOR AUTHOR'S ORGANIZ ATION 09/10/2023 [facility] EPIC DATE CREATED AUTHOR AUTHOR'S ORGANIZ ATION 12/13/2023 [facility] DATE CREATED AUTHOR AUTHOR'S ORGANIZ ATION 01/06/2024 [facility] DATE CREATED AUTHOR AUTHOR'S ORGANIZ ATION 01/18/2024 [facility] DATE CREATED AUTHOR AUTHOR'S ORGANIZ ATION 01/19/2024 [facility] REASON FOR VISIT (unrecogniz ed section and content) Reason Comments Memory Loss Patient Care team informatio n (unrecognized section and content) [employer] Relationship Specialty Start Date End Date Eduardo Atkins MD [address] [place] [address] [address] [place] [address] PCP - General Family Medicine 06/09/23 Team Status: Active Member Role Status Dates Pro Jean , [facility] Primary Care Provider Active Team Status: Active Member Role Status Dates Pro Jean , [facility] Primary Care Provider Active Start: November 16, 2023 Nicolás Perry MD Attending Provider Active Start : November 16, 2023 Team Status: Active Member Role Status Dates Pro Jean , [facility] Primary Care Provider Active Start: November 17, 2023 Nicolás Perry MD Attending Provider Active Start : November 17, 2023 Team Status: Inactive Member Role Status Dates Pro Jean , [facility] Primary Care Provider Active Start: December 10, [...] BE BASED ON THE PRIMARY CLINICAL RECORDS. [employer] [facility]. provides no warranty or guarantee of the accuracy or completeness of information in this document.
[2024-01-22 15:29] LABS: Alanine Aminotransferase 20 U/L (14-59); Albumin Globulin Ratio 0.8; Albumin Level 3.3 g/dL (3.4-5.0); Alkaline Phosphatase 67 U/L (46-116); Anion Gap 9.8; Aspartate Amino Transferase 17 U/L (15-37); BUN Creatinine Ratio 18.5; Bilirubin Total 0.7 mg/dL (0.2-1.0); Calcium 9.5 mg/dL (8.5-10.1); Carbon Dioxide 31.4 mmol/L (21.0-32.0); Chloride 100 mmol/L (98-107); Estimated GFR (African America 41 (>=60); Estimated GFR (Non-African Ame 34 (>=60); Globulin 3.9 g/dL; Glucose 139 mg/dL (74-106); Potassium 5.2 mmol/L (3.5-5.1); Sodium 136 mmol/L (136-145); Total Protein 7.2 g/dL (6.4-8.2)
== END 2024-01-22 07:39 | disposition home or self-care (01) ==
LOC: LAB 07:38
PROVIDERS: PCP Nurse Practitioner Primary Care
DX: I50.9 Heart failure, unspecified (principal)
CPT/HCPCS: 36415; 80053